=== PATIENT | female | born 1980 | race Caucasian/White ===

== ENCOUNTER → 2016-04-23 | Outpatient (CLI) | payer OTHER ==
[~2016-04-23] MED LIST: /TIZA4TA PO; ALBUTEROL INH; DICLOFENAC POTASSIUM PO; IBUP600T OR; PRENTAB8 PO; ZIPS25CA3 PO; ZONI100C2 PO
--- NOTE | 2016-04-23 15:00 | REP ---
Clinical: Trauma. Injury . Technique: AP, lateral, bilateral oblique views left ankle . Findings: Soft tissue swelling is appreciated. No acute fracture or dislocation. Skeletal structures and joint spaces are intact and normal. Ankle mortise appears stable. No subcutaneous emphysema or radiodense foreign body. Impression: Swelling. No acute fracture dislocation. Signed by Alok Virk MD 04/23/2016 02:52 P
--- NOTE | 2016-04-23 15:02 | REP ---
Clinical: Trauma. Injury. Technique: AP, lateral, bilateral oblique views. Findings: Soft tissue swelling noted. The osseous structures and joint spaces are intact and normal. There is no evidence for acute fracture or dislocation. Small calcaneal heal spur identified. No subcutaneous emphysema or radiodense foreign body. Impression: Soft tissue swelling. No acute fracture dislocation. Signed by Alok Virk MD 04/23/2016 02:54 P
== END ==
LOC: M RAD 14:24
PROVIDERS: ATTEND Physician Assistant Medical
DX: M79.89 Other specified soft tissue disorders (principal)

== ENCOUNTER → 2016-04-25 | Outpatient (CLI) | payer OTHER ==
--- NOTE | 2016-04-30 | ECWPNPC ---
PATIENT NAME: CHEN PETERS : 1980 GENDER: FEMALE VISIT DATE: 04/25/2016 DISCHARGE DATE: 04/25/16 1431 VISIT LOCKED DATE TIME: PHYSICIAN: TERESITA MANCILLA RESOURCE: TERESITA MANCILLA REASON FOR APPOINTMENT 1. NECK HISTORY OF PRESENT ILLNESS NEW PATIENT CONSULT: 35 Y/O FEMALE HERE FOR INITIAL CONSULT PER REFERRAL FROM DR. NAPIER FOR CHRONIC NECK AND LOW BACK PAIN.WORSE AREA OF PAIN IS NECK.STATES THIS BEGAN 2 YEARS AGO AFTER A FALL DOWN STAIRS.STATES NECK PAIN RADIATES UP POSTERIOR ASPECT OF SKULL AND CAUSES HEADACHESPAIN IS AGGREVATED BY LIFTING OR PROLONGED SITTING OR STANDING.RELIEVED SOMEWHAT WITH APPLICATION OF PRESSURE TO BASE OF SKULL.DENIES RECENT FEVER ,ILLNESS OR WEIGHT LOSS.DENIES BOWEL OR BLADDER INCONTINENCE.DOES ADMIT TO ACTIVELY USINGCRACK COCAINE,METHAMPHETAMINES AND MARIJUANA.STATES SHE IS PLANNING ON GOING TO [facility] NEXT WEEK FOR HELP. WHEN DID YOUR PAIN FIRST START? . BRIEFLY DESCRIBE HOW YOUR PAIN STARTED? . HOW DOES YOUR PAIN CHANGE WITH TIME? . DOES YOUR PAIN AWAKEN YOU FROM SLEEP? . HOW MANY HOURS OF SLEEP DO YOU NORMALLY GET? . ANY DIAGNOSTIC TESTING? . FACILITY WHERE TESTS WERE DONE? ____. PAIN TREATMENT TREATMENT YES CANCER HAVE YOU EVER HAD ANY TYPE OF CANCER?NO NO. PAIN SCREENING: PATIENT HAS A COMPLAINT OF ACUTE OR CHRONIC PAIN YES FALL RISK SCREENING: SCREENING :NO FALLS IN THE PAST YEAR FJAARDO INVENTORY: QUESTIONNAIRE ASSESSEDTBD SCORE VALUE CALCULATED TBD CURRENT MEDICATIONS TAKING CPAP MASK CPAP SUPPLIES 0 DIRECTED WITH CPAP CPAP AT BEDTIME TAKING CPAP MACHINE CPAP MACHINE NASAL EVERY NIGHT TAKING VENTOLIN HFA 90 MCG/ACT AEROSOL SOLUTION 2 PUFFS NEEDED INHALATION EVERY 4 HOURS NEEDED TAKING LORATADINE 10 MG TABLET TAKE ONE TABLET BY MOUTH ONCE DAILY TAKING LISINOPRIL 5 MG TABLET ORALLY TAKING PROZAC 20 MG CAPSULE 1 CAPSULE IN THE MORNING ORALLY ONCE A DAY TAKING VERAPAMIL HCL 120 MG TABLET 1 TABLET ORALLY THREE TIMES A DAY TAKING VITAMIN D (ERGOCALCIFEROL) 80152 UNIT CAPSULE 1 CAPSULE ORALLY NOT-TAKING ZONISAMIDE 50 MG CAPSULE 1 CAPSULE ORALLY DAILY (QUYEN) NOT-TAKING NAPROXEN 500 MG TABLET 1 TAB(S) ORALLY EVERY 12 HRS NEEDED (DEX) NOT-TAKING CELEBREX 200 MG CAPSULE TAKE ONE CAPSULE BY MOUTH ONCE DAILY MEDICATION LIST REVIEWED AND RECONCILED WITH THE PATIENT PAST MEDICAL HISTORY SCHIZOAFFECTIVE DISORDER VITAMIN D DEFICIENCY HEARING LOSS UNKNOWN ETIOLOGY EST W/ AUDIOLOGY AND ENT W/ DR. 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 DIFF COLITIS 03/15 FREQ ABSCESS AND H/O MRSA HX OVARIAN CYSTS HX MODERATE CERVICAL DYSPLASIA (LISA I-II) W/LEEP INFERTILITY ISSUES FIBROCYSTIC BREAST DISEASE ALLERGIES RISPERERDOL: DIZZY: SIDE EFFECTS GEODON: PARANOID: SIDE EFFECTS SEAFOOD, FISH: ANGIOEDEMA: ALLERGY FLEXERIL: HIVES: ALLERGY NORTRIPTYLINE HCL: HIVES: ALLERGY ULTRAM: HIVES: ALLERGY ATENOLOL 100: HIVES: ALLERGY SURGICAL HISTORY PLANTAR FACITIS 2014 SHUNT IN THE BRAIN/EAR TUBES 1980 LAPARSCOPIC EXPLORATORY 2013 FAMILY HISTORY FATHER: ALIVE MOTHER: ALIVE SIBLINGS: ALIVE MISCARRIED . SOCIAL HISTORY GENERAL: TOBACCO USE ARE YOU A:NONSMOKER RECREATIONAL DRUG USE DRUG USE?YES PT STATES SHE USES MARYJUANA , METH AND CRACK COCAINE CAFFEINE CAFFEINE USE?NO DIET: REGULAR. EXERCISE: PT STATES SHE HAS AN EATING DISORDER/ MAKES HERSELF THROW UP. MARITAL STATUS: , . PETS: DOG. ZOROASTRIAN: CHURCH. LANGUAGE: ARMENIAN. EDUCATION: 6TH GRADE EDUCATION. LEARNING BARRIERS / SPECIAL NEEDS BARRIERS TO LEARNING?YES PT STATES SHE CAN READ, BUT DOES NOT COMPREHEND COGNITIVELY IMPAIRED?YES READINESS TO LEARN?YES LEARNING PREFERENCES? ONE ON ONE EXPLANATION EMOTIONAL BARRIERS?YES SUICIDE ATTEMPT LNOVE 2015 PSYCHOLOGICAL HX TREATMENTNO PAIN CLINIC PFS, CLERGY, PUBLIC HEALTH REFERRALS CLERGY REFERRAL NEEDED?NO WAS THE PROVIDER NOTIFIED OF ANY PERTINENT INFO?NO PFS REFERRAL NEEDED?NO PUBLIC HEALTH REFERRAL NEEDED?NO PATIENT: ____. ADVANCED DIRECTIVES HEALTH CARE PROXY?NO POWER OF MOLD CAPPER HELPER?NO PT LIVE WITH SAME PARTNER, RECENTLY , SINCE MAY 2010. HOSPITALIZATION/MAJOR DIAGNOSTIC PROCEDURE MENTAL HEALTH ADMISSIONS LAST IN 2014 REVIEW OF SYSTEMS CONSTITUTIONAL: ANY CHANGE IN YOUR MEDICAL CONDITION? NO . RECENT ILLNESS DENIES . CHILLS NO . FEVER NO . WEIGHT LOSS DENIES . INFECTION: DO YOU HAVE NEW INFECTIONS? NO . DO YOU HAVE HISTORY OF MRSA? NO . MUSCULOSKELETAL: ANY NEW PATTERNS OF PAIN OR NUMBNESS? NO . SYTEMIC LUPUS NO . GASTROENTEROLOGY: ANY NEW CHANGE IN BOWEL CONTROL? NO . BARRETTS ESOPHAGUS NO . CIRRHOSIS NO . HEPATITIS NO . LIVER FAILURE NO . ACID REFLUX NO . UNEXPLAINED WEIGHT LOSS NO . GENITOURINARY: ANY NEW CHANGE IN BLADDER CONTROL? NO . IS THERE A CHANCE YOU COULD BE ? NO . HEMATOLOGY/LYMPH: DO YOU TAKE ANY BLOOD THINNERS? (FOR EXAMPLE- COUMADIN, PLAVIX, AGGRENOX, PLATEL, PRADAXA, OR XARELTO) NO . WHEN WAS YOUR LAST DOSE? DATE: TIME: . LOW PLATELET COUNT NO . SICKLE CELL DISEASE NO . VON WILLIEBRANDS NO . FACTOR V LEIDEN NO . THALLASEMIA NO . ANEMIA NO . EASY BRUISING NO . NEUROLOGY: HAVE YOU FALLEN IN THE PAST 6 MONTHS? NO . ANY NEW EXTREMITY NUMBNESS OR WEAKNESS? NO . HEAD INJURY NO . DEMENTIA NO . CEREBRAL PALSY NO . MULTIPLE SCLEROSIS NO . DIZZINESS NO . HEADACHE NO . STROKES NO . VERTIGO NO . CARDIOLOGY: DO YOU HAVE A PACEMAKER OR DEFIBRILLATOR? NO . ANGINA NO . HEART ATTACK NO . HEART SURGERY NO . CONGESTIVE HEART FAILURE/FLUID OVERLOAD NO . CHEST PAIN NO, DENIES . HIGH BLOOD PRESSURE NO . IRREGULAR HEART BEAT NO . SHORTNESS OF BREATH DENIES . RESPIRATORY: HAVE YOU BEEN SICK IN THE PAST WEEK? NO . FEVER NO . FLU LIKE SYMPTOMS? NO . CPAP NO . BYPAP NO . ASTHMA NO . EMPHYSEMA NO . CHRONIC LUNG DISEASES NO . SHORTNESS OF BREATH ON EXERTION NO . DO YOU USE ANY TYPE OF TOBACCO (SMOKE, SMOKELESS, CHEW)? NO . COUGH NO, DENIES . SHORTNESS OF BREATH DENIES . SNORING NO . INTEGUMENTARY: DO YOU HAVE ANY RASHES OR OPEN SORES? NO . ALLERGIC/IMMUNO: ARE YOU ALLERGIC TO SHELLFISH OR IV DYE? YES . ANY NEW ALLERGIES? NO . PSYCHIATRIC: DO YOU HAVE THOUGHTS OF HURTING YOURSELF OR SOMEONE ELSE? NO . ARE YOU ABUSED, NEGLECTED, OR IN AN UNSAFE ENVIRONMENT? NO . ENDOCRINOLOGY: ARE YOU DIABETIC? NO . THYROID DISORDER NO . OTHER: DO YOU NEED ANY PRESCRIPTIONS? NO . IF YES, PLEASE LIST: ____ . ANY NEW PROBLEMS WITH YOUR MEDICATIONS? NO . WHEN DID YOU LAST EAT? ____ . WHEN DID YOU LAST DRINK? ____ . WHAT DID YOU LAST DRINK? ____ . NAME OF PERSON DRIVING YOU HOME? ____ . DO YOU HAVE ANY OTHER QUESTIONS OR CONCERNS NO . REVIEWED BY: PROVIDER: TERESITA ARMSTRONG . VITAL SIGNS WT 254.0 LBS, HT 66 IN, BMI 40.99 INDEX, BP 122/79 MM HG, HR 81 /MIN, RR 16 /MIN, TEMP 99.0 F, OXYGEN SAT % 100, NA INITIALS SC 13:14, REVIEWED BY: KG. EXAMINATION GENERAL EXAMINATION: LUNGS:LUNG SOUNDS ARE CLEAR. HEART:HEART RATE REGULAR. MUSCULOSKELETAL:*, MUSCLE STRENGTH TESTING 5/5 BILATERAL UPPER EXTREMITIES. PALPATION: POSITIVE FOR PAIN OVER C SPINE. POSITIVE FOR PAIN OVER CERVICAL PARASPINALS. TRIGGER POINTS:, ELICITED WITH PALPATION OVER CERVICAL SPINOUS PROCESSES AND ACROSS THE TRAPEZIUS MUSCLES BILATERALLY. RESTRICTION OF ROM IS NOTED. NORMAL RANGE OF MOTION ALL JOINTS UPPE AND LOWER EXTREMITIES.. DIAGNOSTIC:MRI L/S [id number]. NCS LOWER [id number]. ASSESSMENTS CERVICALGIA - M54.2 (PRIMARY) MYOFASCIAL MUSCLE PAIN - M79.1 TREATMENT CERVICALGIA START MELOXICAM TABLET, 15 MG, 1 TABLET, ORALLY, ONCE A DAY, 30 DAY(S), 30, REFILLS 2 TRIGGER POINT 1-2 TERESITA RIOS 04/25/2016 2:33:45 PM > LEFT UPPER BACK REFERRAL TO:PHYSICAL THERAPIST REASON:CERVICALGIA,MYOFASCIAL PAIN,2XWK X8WK MYOFASCIAL MUSCLE PAIN TRIGGER POINT 1-2 TERESITA RIOS 04/25/2016 2:33:45 PM > LEFT UPPER BACK PROCEDURE CODES FA211 ESTABILISHED PATIENT [facility] CHARGE DISPOSITION & COMMUNICATION FOLLOW UP 6 WEEKS (REASON: TRIGGER POINT INJ LEFT UPPER BACK) ELECTRONICALLY SIGNED BY PATTI SARAH ON 04/29/2016 AT 04:52 PM EST DISCLAIMER : THIS IS A VISIT SUMMARY EXTRACTED FROM THE [employer] CHART. IT IS NOT A COPY OF THE [employer] PROGRESS NOTE. MTDD
== END ==
LOC: M PAIN 13:20
PROVIDERS: ATTEND Nurse Practitioner Family
DX: Z09 Encounter for follow-up examination after completed treatment for conditions other than malignant neoplasm (principal); G89.29 Other chronic pain; M54.2 Cervicalgia; M79.1 Myalgia; M54.5 Low back pain; G43.909 Migraine, unspecified, not intractable, without status migrainosus; J45.909 Unspecified asthma, uncomplicated; E55.9 Vitamin D deficiency, unspecified; F25.9 Schizoaffective disorder, unspecified; G47.33 Obstructive sleep apnea (adult) (pediatric); H91.90 Unspecified hearing loss, unspecified ear; Z91.013 Allergy to seafood; Z88.8 Allergy status to other drugs, medicaments and biological substances; Z79.899 Other long term (current) drug therapy; Z86.14 Personal history of Methicillin resistant Staphylococcus aureus infection

== ENCOUNTER 2016-05-06 14:20 | Emergency (ER) | payer OTHER ==
[~2016-05-06] VITALS: Ht 167.6 cm; Wt 68.0 kg
[2016-05-06 20:03] VITALS: BP 130/82
== END 2016-05-06 20:10 | disposition home or self-care (01) ==
LOC: M ED 18:46
DX: Z60.9 Problem related to social environment, unspecified (principal); F41.9 Anxiety disorder, unspecified; J45.909 Unspecified asthma, uncomplicated; Z79.899 Other long term (current) drug therapy; Z88.1 Allergy status to other antibiotic agents; Z88.8 Allergy status to other drugs, medicaments and biological substances; Z91.041 Radiographic dye allergy status; Z91.02 Food additives allergy status; Z91.013 Allergy to seafood; Z88.5 Allergy status to narcotic agent

== ENCOUNTER → 2016-05-10 | Outpatient (REF) | payer OTHER | LOC: M LAB REF 16:13 | PROVIDERS: ATTEND Physician Assistant Medical | DX: J11.1 Influenza due to unidentified influenza virus with other respiratory manifestations (principal) ==

== ENCOUNTER → 2016-05-23 | Outpatient (CLI) | payer OTHER ==
[~2016-05-23] MED LIST changes: +BUPIVACAINE HCL 0.25% 10 ML VIAL As Ordered ONE; +BUPIVACAINE HCL 0.25% 30 ML VIAL As Ordered ONE; +TRIAMCINOLONE ACETONIDE SUSP 40 MG/ML VIAL (J3301) As Ordered ONE; +diazePAM 5 MG TAB As Ordered ONE; +oxyCODONE 5MG TAB As Ordered ONE
--- NOTE | 2016-05-28 02:25 | ECWPNPC ---
PATIENT NAME: CHEN PETERS : 1980 GENDER: FEMALE VISIT DATE: 05/23/2016 DISCHARGE DATE: 05/23/16 1614 VISIT LOCKED DATE TIME: PHYSICIAN: RIGOBERTO BENDER RESOURCE: RIGOBERTO BENDER REASON FOR APPOINTMENT 1. TPI- MYOFASCIAL MUSCLE PAIN HISTORY OF PRESENT ILLNESS HISTORY OF PRESENT ILLNESS: PAIN THE PATIENT DESCRIBES THE PAIN... FALL RISK SCREENING: SCREENING :NO FALLS IN THE PAST YEAR CURRENT MEDICATIONS TAKING CPAP MASK CPAP SUPPLIES 0 DIRECTED WITH CPAP CPAP AT BEDTIME TAKING CPAP MACHINE CPAP MACHINE NASAL EVERY NIGHT TAKING VENTOLIN HFA 90 MCG/ACT AEROSOL SOLUTION 2 PUFFS NEEDED INHALATION EVERY 4 HOURS NEEDED, NOTES: 05-22-16 TAKING LISINOPRIL 5 MG TABLET ORALLY , NOTES: 05-22-162299 TAKING PROZAC 20 MG CAPSULE 1 CAPSULE IN THE MORNING ORALLY ONCE A DAY, NOTES: 05-22-162299 TAKING VERAPAMIL HCL 240 MG (CO) TABLET EXTENDED RELEASE 1 TABLET ORALLY ONCE A DAY, NOTES: 05-22-162199 TAKING VITAMIN D (ERGOCALCIFEROL) 95833 UNIT CAPSULE 1 CAPSULE ORALLY ONCE WEEKLY, NOTES: 05-22-162299 TAKING MELOXICAM 15 MG TABLET 1 TABLET ORALLY ONCE A DAY, NOTES: 05-22-16 1100 TAKING LORATADINE 10 MG TABLET TAKE ONE TABLET BY MOUTH ONCE DAILY , NOTES: 05-22-162299 TAKING EPIPEN 0.3 MG/0.3ML DEVICE INJECTION TAKING ABILIFY MAINTENA 400 MG SUSPENSION RECONSTITUTED 2 ML INTRAMUSCULAR MONTHLY, NOTES: 05-17-16 NOT-TAKING ZONISAMIDE 50 MG CAPSULE 1 CAPSULE ORALLY DAILY (QUYEN) NOT-TAKING NAPROXEN 500 MG TABLET 1 TAB(S) ORALLY EVERY 12 HRS NEEDED (MAJAK) NOT-TAKING CELEBREX 200 MG CAPSULE TAKE ONE CAPSULE BY MOUTH ONCE DAILY MEDICATION LIST REVIEWED AND RECONCILED WITH THE PATIENT PAST MEDICAL HISTORY SCHIZOAFFECTIVE DISORDER VITAMIN D DEFICIENCY HEARING LOSS UNKNOWN ETIOLOGY EST W/ AUDIOLOGY AND ENT W/ DR. 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 DIFF COLITIS 03/15 FREQ ABSCESS AND H/O MRSA HX OVARIAN CYSTS HX MODERATE CERVICAL DYSPLASIA (LISA I-II) W/LEEP INFERTILITY ISSUES FIBROCYSTIC BREAST DISEASE ALLERGIES RISPERERDOL: DIZZY: SIDE EFFECTS GEODON: PARANOID: SIDE EFFECTS SEAFOOD, FISH: ANGIOEDEMA: ALLERGY FLEXERIL: HIVES: ALLERGY NORTRIPTYLINE HCL: HIVES: ALLERGY ULTRAM: HIVES: ALLERGY ATENOLOL 100: HIVES: ALLERGY REVIEW OF SYSTEMS CONSTITUTIONAL: ANY CHANGE IN YOUR MEDICAL CONDITION? NO . CHILLS NO . FEVER NO . INFECTION: DO YOU HAVE NEW INFECTIONS? NO . DO YOU HAVE HISTORY OF MRSA? NO . MUSCULOSKELETAL: ANY NEW PATTERNS OF PAIN OR NUMBNESS? NO . GASTROENTEROLOGY: ANY NEW CHANGE IN BOWEL CONTROL? NO . GENITOURINARY: ANY NEW CHANGE IN BLADDER CONTROL? NO . IS THERE A CHANCE YOU COULD BE ? NO . HEMATOLOGY/LYMPH: DO YOU TAKE ANY BLOOD THINNERS? (FOR EXAMPLE- COUMADIN, PLAVIX, AGGRENOX, PLATEL, PRADAXA, OR XARELTO) NO . WHEN WAS YOUR LAST DOSE? DATE: TIME: . NEUROLOGY: HAVE YOU FALLEN IN THE PAST 6 MONTHS? NO . ANY NEW EXTREMITY NUMBNESS OR WEAKNESS? NO . CARDIOLOGY: DO YOU HAVE A PACEMAKER OR DEFIBRILLATOR? NO . RESPIRATORY: HAVE YOU BEEN SICK IN THE PAST WEEK? NO . FEVER NO . FLU LIKE SYMPTOMS? NO . COUGH NO . INTEGUMENTARY: DO YOU HAVE ANY RASHES OR OPEN SORES? NO . ALLERGIC/IMMUNO: ARE YOU ALLERGIC TO SHELLFISH OR IV DYE? YES, SHELLFISH . ANY NEW ALLERGIES? NO . PSYCHIATRIC: DO YOU HAVE THOUGHTS OF HURTING YOURSELF OR SOMEONE ELSE? NO . ARE YOU ABUSED, NEGLECTED, OR IN AN UNSAFE ENVIRONMENT? NO . ENDOCRINOLOGY: ARE YOU DIABETIC? NO . OTHER: DO YOU NEED ANY PRESCRIPTIONS? NO . IF YES, PLEASE LIST: ____ . ANY NEW PROBLEMS WITH YOUR MEDICATIONS? NO . WHEN DID YOU LAST EAT? 05-23-16 1100 SOUP . WHEN DID YOU LAST DRINK? 05-23-16 1100 EUGENIO MIST . WHAT DID YOU LAST DRINK? EUGENIO MIST . NAME OF PERSON DRIVING YOU HOME? SHEILA VAUGHAN . DO YOU HAVE ANY OTHER QUESTIONS OR CONCERNS NO . REVIEWED BY: PROVIDER: . VITAL SIGNS WT 254.4 LBS, HT 66 IN, BMI 41.06 INDEX, BP 122/67 MM HG, HR 63 /MIN, RR 16 /MIN, TEMP 96.6 F, OXYGEN SAT % 100%, NA INITIALS SC 14:35, REVIEWED BY: CM. ASSESSMENTS MYALGIA - M79.1 (PRIMARY) PROCEDURES PN TRIGGER POINT INJECTION WITH STEROIDS PRE PROCEDURE DIAGNOSIS 1. MYALGIA 2. PAIN AT BILATERAL NECK AREA POST PROCEDURE DIAGNOSIS 1. MYALGIA 2. PAIN AT BILATERAL NECK AREA PROCEDURE TRIGGER POINT INJECTION AT BILATERAL NECK AREA SURGEON DR. RIGOBERTO BENDER HYDRAULIC MINER NONE ANESTHESIA LOCAL PRE PROCEDURE NOTE THE PATIENT HAS A HISTORY OF CHRONIC PAIN AT THE RIGHT AND LEFT NECK AREA. I EVALUATE THE PATIENT AND REVIEWED THE CHART. THERE IS EVIDENCE OF BANDS OF TISSUE WITH RESTRICTION OF MOVEMENT AND PRESENCE OF TRIGGER POINT AT THE AFFECTED AREA. I WENT OVER THE RISKS, ALTERNATIVES, AND BENEFITS ASSOCIATED WITH THIS PROCEDURE. THE PATIENT WOULD LIKE TO PROCEED AND GIVE CONSENT TO PERFORMED THE PROCEDURE. THE PATIENT DENIES UNEXPLAINABLE WEIGHT LOSS, FEVER, CHILLS, OR NEW CHANGES IN URINARY OR BOWEL CONTROL DESCRIPTION OF PROCEDURE THE PATIENT WAS BROUGHT TO THE PROCEDURE ROOM AND PLACED IN THE SITTING POSITION. THE AREA WAS CLEANED WITH ALCOHOL. THE PROCEDURE WAS DONE USING ASEPTIC STERILE TECHNIQUE. I CHECKED LATERALITY AND THE LEVEL WHERE THE PROCEDURE WAS GOING TO BE PERFORMED WITH THE PATIENT AND THE SUPPORTING STAFF AT THE MOMENT OF THE TIME OUT IN THE PROCEDURE ROOM. USING A 25-GAUGE NEEDLE, TRIGGER POINTS WERE INJECTED AT THE RIGHT AND LEFT NECK AREA WITH A TOTAL OF 40 ML OF BUPIVACAINE 0.25% AND KENALOG 40 MG. THERE WAS NO EVIDENCE OF BLOOD, PARESTHESIA OR CEREBROSPINAL FLUID DURING THE PROCEDURE. THE PATIENT WAS SENT TO THE RECOVERY ROOM. THE PATIENT WAS MOVING THE EXTREMITIES AND DOING WELL. THERE WAS NO COMPLICATION DURING THE PROCEDURE POST PROCEDURE NOTE THE PATIENT WILL BE SEEN IN A FOLLOW UP IN THE NEXT FEW WEEKS. INSTRUCTIONS WERE GIVEN, QUESTIONS WERE ANSWERED, AND THE PATIENT EXPRESSED UNDERSTANDING AND AGREES WITH THE PLAN. I, BE SUMMERS, DOCUMENTED THE ABOVE INFORMATION ACTING A SCRIBE FOR DR. BENDER. I HAVE REVIEWED THE ABOVE DOCUMENT, WRITTEN BY BE SHULTZ AND I VERIFY THAT IT IS ACCURATE PROCEDURE CODES 93077 INJ TRIGGER POINT 03/04 [facility] DISPOSITION & COMMUNICATION FOLLOW UP 3 WEEKS ELECTRONICALLY SIGNED BY RIGOBERTO BENDER MD ON 05/27/2016 AT 06:00 PM EDT DISCLAIMER : THIS IS A VISIT SUMMARY EXTRACTED FROM THE [employer] CHART. IT IS NOT A COPY OF THE [employer] PROGRESS NOTE. EDITH
== END | disposition home or self-care (01) ==
LOC: M PAIN 14:20
PROVIDERS: ATTEND Anesthesiology
DX: G89.29 Other chronic pain (principal); M79.1 Myalgia; J45.909 Unspecified asthma, uncomplicated; G47.33 Obstructive sleep apnea (adult) (pediatric); F25.9 Schizoaffective disorder, unspecified; E55.9 Vitamin D deficiency, unspecified; H91.90 Unspecified hearing loss, unspecified ear; G43.909 Migraine, unspecified, not intractable, without status migrainosus; Z79.899 Other long term (current) drug therapy; Z88.5 Allergy status to narcotic agent; Z88.8 Allergy status to other drugs, medicaments and biological substances; Z91.013 Allergy to seafood
CPT/HCPCS: 20552; J3301

== ENCOUNTER 2016-06-16 17:58 | Emergency (ER) | payer OTHER ==
[~2016-06-16] VITALS: Ht 167.6 cm; Wt 111.1 kg
[~2016-06-16 17:58] MED LIST changes: -BUPIVACAINE HCL 0.25% 10 ML VIAL As Ordered ONE; -BUPIVACAINE HCL 0.25% 30 ML VIAL As Ordered ONE; -TRIAMCINOLONE ACETONIDE SUSP 40 MG/ML VIAL (J3301) As Ordered ONE; -diazePAM 5 MG TAB As Ordered ONE; -oxyCODONE 5MG TAB As Ordered ONE
[2016-06-16 17:59] VITALS: BP 112/73
[2016-06-16] MEDS ORDERED: PROZ40CA PO (18:06)
[2016-06-16] MEDS ORDERED: ABIL300I IM (18:06)
[2016-06-16] MEDS ORDERED: VERA240T14 PO (18:06)
[2016-06-16] MEDS ORDERED: TRAZ150T14 PO (18:06)
[2016-06-16] MEDS ORDERED: KETOROLAC 30 MG/ML VIAL (J1885) IV ONE (19:00)
[2016-06-16] MEDS ORDERED: CLINDAMYCIN 150 MG CAP PO ONE (19:00)
[2016-06-16] MEDS ORDERED: CLEO300C2 PO (19:08)
[2016-06-16] MEDS ORDERED: NAPR500T PO (19:08)
[2016-06-16] MEDS ORDERED: KETOROLAC 30 MG/ML VIAL (J1885) IM ONE (19:30)
== END 2016-06-16 19:52 | disposition home or self-care (01) ==
LOC: M ED 18:57
DX: K02.9 Dental caries, unspecified (principal); M54.2 Cervicalgia; F17.200 Nicotine dependence, unspecified, uncomplicated; Z88.5 Allergy status to narcotic agent; Z88.8 Allergy status to other drugs, medicaments and biological substances; Z91.02 Food additives allergy status; Z91.013 Allergy to seafood

== ENCOUNTER 2016-07-21 16:51 | Emergency (ER) | payer OTHER ==
[~2016-07-21] VITALS: Ht 167.6 cm; Wt 113.4 kg
[~2016-07-21 16:51] MED LIST changes: +ABIL300I IM; +CLEO300C2 PO; +NAPR500T PO; +PROZ40CA PO; +TRAZ150T14 PO; +VERA240T14 PO
[2016-07-21 16:52] VITALS: BP 138/65
[2016-07-21] MEDS ORDERED: MEDR1VL IM (16:59)
[2016-07-21] MEDS ORDERED: NAPR500T PO (17:44)
[2016-07-21] MEDS ORDERED: AMOX500C PO (17:44)
[2016-07-21] MEDS ORDERED: AMOXICILLIN 500 MG CAP PO ONE (17:45)
[2016-07-21] MEDS ORDERED: ACETAMINOPH W/CODEINE #3 TAB UD PO ONE (17:45)
== END 2016-07-21 18:47 | disposition home or self-care (01) ==
LOC: M ED 17:49
DX: G50.1 Atypical facial pain (principal); K08.9 Disorder of teeth and supporting structures, unspecified; I10 Essential (primary) hypertension; Z79.899 Other long term (current) drug therapy; Z88.5 Allergy status to narcotic agent; Z88.8 Allergy status to other drugs, medicaments and biological substances; Z91.013 Allergy to seafood; Z91.09 Other allergy status, other than to drugs and biological substances

== ENCOUNTER 2016-08-13 15:48 | Emergency (ER) | payer OTHER ==
[~2016-08-13] VITALS: Ht 167.6 cm; Wt 117.8 kg
[2016-08-13 15:48] VITALS: BP 151/74
[~2016-08-13 15:48] MED LIST changes: +AMOX500C PO; +MEDR1VL IM
[2016-08-13] MEDS ORDERED: NORCOTAB PO (16:11)
[2016-08-13] MEDS ORDERED: CLEO300C2 PO (16:11)
== END 2016-08-13 16:27 | disposition home or self-care (01) ==
LOC: M ED 16:20
DX: K02.9 Dental caries, unspecified (principal); R22.0 Localized swelling, mass and lump, head; Z79.899 Other long term (current) drug therapy; Z91.02 Food additives allergy status; Z88.8 Allergy status to other drugs, medicaments and biological substances; Z88.5 Allergy status to narcotic agent; Z91.013 Allergy to seafood

== ENCOUNTER 2016-10-21 19:30 | Emergency (ER) | payer OTHER ==
[~2016-10-21] VITALS: Ht 167.6 cm; Wt 118.1 kg
[~2016-10-21 19:30] MED LIST changes: +NORCOTAB PO; -TRAZ150T14 PO; +TRAZ1TAB14 PO
[2016-10-21] MEDS ORDERED: REXU1TAB PO (19:54)
[2016-10-21] MEDS ORDERED: AMOX500C PO (19:54)
[2016-10-21] MEDS ORDERED: IPRATROPIUM 0.5MG/ALBUTEROL 2.5MG INH SOL UD 3ML (DUONEB)(J7620) NEB ONE (21:00)
[2016-10-21 22:06] LABS: BASO % 0.6 % (0.0-1.0); EOS # 0.3 K/mm3 (0.0-0.50); EOS % 3.5 % (0.0-3.0); LARGE UNSTAINED CELL # 0.1 K/mm3 (0.0-0.4); LYMPH # 2.4 K/mm3 (1.5-4.5); LYMPH % 27.2 % (24.0-44.0); MEAN CORPUSCULAR HEMOGLOBIN 31.2 pg (27.0-33.0); MEAN CORPUSCULAR HGB CONC 33.4 g/dl (32.0-36.5); MEAN CORPUSCULAR VOLUME 93.4 fl (80.0-96.0); MONO # 0.4 K/mm3 (0.0-0.8); MONO % 4.2 % (0.0-5.0); NEUTROPHILS # 5.4 K/mm3 (1.8-7.7); NEUTROPHILS % 63.4 % (36.0-66.0); PLATELET COUNT, AUTOMATED 191 k/mm3 (150-450); RED CELL DISTRIBUTION WIDTH 13.4 % (11.5-14.5); WHITE BLOOD COUNT 8.5 K/mm3 (4.0-10.0)
[2016-10-21 22:36] LABS: ANION GAP 7 MEQ/L (8-16); BLOOD UREA NITROGEN 13 MG/DL (7-18); CALCIUM LEVEL 9.1 MG/DL (8.5-10.1); CARBON DIOXIDE LEVEL 28 MEQ/L (21-32); CHLORIDE LEVEL 108 MEQ/L (98-107); CREATININE FOR GFR 1.23 MG/DL (0.55-1.02); GLOMERULAR FILTRATION RATE 52.6 (>60); GLUCOSE, FASTING 84 MG/DL (70-105); POTASSIUM SERUM 3.8 MEQ/L (3.5-5.1); SODIUM LEVEL 143 MEQ/L (136-145)
[2016-10-22] MEDS ORDERED: NS 1,000 ML IV ONE (01:30)
[2016-10-22] MEDS ORDERED: ISOVUE-370 76% 100ML VIAL (Q9967) As Ordered ONE (01:33)
--- NOTE | 2016-10-22 02:50 | REPUSA ---
CLINICAL HISTORY: Edema. COMMENTS: Real time sonography with duplex doppler of the extremities bilaterally was performed with attention to the major deep venous structures. Evaluation reveals the common femoral, superficial femoral and popliteal veins bilaterally to be comp letely compressible without intraluminal thrombus. There is normal spontaneous phasic flow and augmen tation in all deep veins. The greater saphenous/common femoral vein junctions are patent bilaterally. IMPRESSION: No evidence of DVT in the lower extremities bilaterally. Thank you for your kind referral of this patient.
--- NOTE | 2016-10-22 02:50 | REPUSA ---
CLINICAL HISTORY: Pain, exclude PE. TECHNIQUE: Multiple incremental axial, coronal and oblique images are obtained from the thoracic inle t to the upper abdomen. Intravenous contrast material was administered as per pulmonary embolism prot ocol. COMMENTS: There is excellent opacification of pulmonary arterial system without evidence for pulmonary embolism . Aorta is of normal caliber without evidence for dissection or aneurysm. There is no evidence of pleural or parenchymal mass. There are no pleural effusions. There is no evid ence of hilar or mediastinal lymphadenopathy. The heart and great vessels are within normal limits. Images of the upper abdomen demonstrate no evidence of adrenal mass. The bony structures are free of lytic or blastic lesions. IMPRESSION: No evidence for pulmonary embolism. Thank you for your kind referral of this patient.
[2016-10-22] MEDS ORDERED: PRED20TA PO (03:07)
[2016-10-22] MEDS ORDERED: IPRATROPIUM 0.5MG/ALBUTEROL 2.5MG INH SOL UD 3ML (DUONEB)(J7620) NEB ONE (03:15)
[2016-10-22] MEDS ORDERED: dexameTHASONE 20 MG/5 ML VIAL (J1100) IV ONE (03:15)
[2016-10-22 03:45] VITALS: BP 131/90
--- NOTE | 2016-10-22 07:33 | ECGEPIP ---
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 Order Number: [id number] Reading MD: Phil Munoz Measurements Intervals [place] Rate: 56 P: 58 GA: 154 QRS: 34 QRSD: 89 T: 31 QT: 446 QTc: 434 Interpretive Statements SINUS BRADYCARDIA Electronically Signed On 10-22-2016 7:32:56 EDT by Phil Munoz
--- NOTE | 2016-10-22 08:19 | REP ---
Chest x-ray: Two views. History: Shortness of breath. . Comparison study: November 25, 2015 . Findings: The lungs are well inflated and free of infiltrate. The pleural angles are sharp. The heart size is normal. Pulmonary vasculature is not increased. No significant bony abnormality is seen. Impression: Negative chest x-ray. Signed by Abdirahman Ortiz MD 10/22/2016 08:10 A
== END 2016-10-22 03:50 | disposition home or self-care (01) ==
LOC: M ED 19:30
DX: J40 Bronchitis, not specified as acute or chronic (principal); Z79.2 Long term (current) use of antibiotics; Z79.899 Other long term (current) drug therapy; Z91.02 Food additives allergy status; Z88.8 Allergy status to other drugs, medicaments and biological substances; Z91.013 Allergy to seafood
CPT/HCPCS: 71020; 71275; 80048; 81025; 82550; 82553; 85025; 85379; 93000; 93970; 94640; 96361; 96374; 99284; J1100; Q9967

== ENCOUNTER 2016-10-29 09:36 | Emergency (ER) | payer OTHER ==
[~2016-10-29] VITALS: Ht 167.6 cm; Wt 113.6 kg
[~2016-10-29 09:36] MED LIST changes: +PRED20TA PO; +REXU1TAB PO
[2016-10-29] MEDS ORDERED: VITA1TAB27 PO (09:48)
[2016-10-29] MEDS ORDERED: ALBU17IN2 INH (09:49)
--- NOTE | 2016-10-29 10:34 | REP ---
RIGHT ANKLE SERIES: Four views. HISTORY: Trauma. FINDINGS: Four views of the right ankle show mild medial swelling. Ankle mortise is intact. No fracture is seen. There is early Achilles calcaneal spurring. IMPRESSION: No fracture noted. Signed by Abdirahman Ortiz MD 10/29/2016 12:14 P
[2016-10-29 11:54] LABS: METHADONE URINE NEGATIVE (NEGATIVE)
[2016-10-29] MEDS ORDERED: NAPR500T PO (12:08)
[2016-10-29] MEDS ORDERED: ACETAMINOPHEN TAB 650MG DOSE (2X325MG) PO ONE (12:15)
[2016-10-29 12:57] VITALS: BP 130/60
--- NOTE | 2016-10-31 08:55 | ECGEPIP ---
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
== END 2016-10-29 13:00 | disposition home or self-care (01) ==
LOC: M ED 09:36 → EDBD 09:36 → M ED 13:00
DX: F41.9 Anxiety disorder, unspecified (principal); R00.2 Palpitations; S93.401A Sprain of unspecified ligament of right ankle, initial encounter; W19.XXXA Unspecified fall, initial encounter; X50.1XXA Overexertion from prolonged static or awkward postures, initial encounter; Y92.89 Other specified places as the place of occurrence of the external cause; Y93.89 Activity, other specified; Y99.8 Other external cause status; F25.9 Schizoaffective disorder, unspecified; R07.9 Chest pain, unspecified; G47.33 Obstructive sleep apnea (adult) (pediatric); F17.200 Nicotine dependence, unspecified, uncomplicated; F14.90 Cocaine use, unspecified, uncomplicated; F12.90 Cannabis use, unspecified, uncomplicated; Z91.02 Food additives allergy status; Z88.8 Allergy status to other drugs, medicaments and biological substances; Z88.5 Allergy status to narcotic agent; Z91.013 Allergy to seafood

== ENCOUNTER → 2016-11-13 | Outpatient (CLI) | payer OTHER ==
[~2016-11-13] MED LIST changes: +ALBU17IN2 INH; +VITA1TAB27 PO
--- NOTE | 2016-11-13 11:49 | REP ---
Clinical: Pain. Technique: AP, lateral views of the right ankle. Comparison: 10/29/2016. Findings: Moderate soft tissue swelling is appreciated. No acute fracture dislocation. Joint spaces and ankle mortise are intact. Impression: Moderate swelling increased from prior examination. No fracture or dislocation. Signed by Alok Virk MD 11/13/2016 11:41 A
== END ==
LOC: M RAD 11:17
PROVIDERS: ATTEND Family Medicine
DX: S93.401A Sprain of unspecified ligament of right ankle, initial encounter (principal); X58.XXXA Exposure to other specified factors, initial encounter; Y93.9 Activity, unspecified; Y92.9 Unspecified place or not applicable; Y99.8 Other external cause status

== ENCOUNTER 2016-11-29 15:36 | Emergency (ER) | payer OTHER ==
[~2016-11-29] VITALS: Ht 167.6 cm; Wt 54.4 kg
[2016-11-29 15:36] VITALS: BP 132/66
== END 2016-11-29 16:38 | disposition home or self-care (01) ==
LOC: M ED 15:36
DX: S82.51XA Displaced fracture of medial malleolus of right tibia, initial encounter for closed fracture (principal); X50.9XXA Other and unspecified overexertion or strenuous movements or postures, initial encounter; Y92.89 Other specified places as the place of occurrence of the external cause; Y93.89 Activity, other specified; Y99.8 Other external cause status; I10 Essential (primary) hypertension; J45.909 Unspecified asthma, uncomplicated; F43.10 Post-traumatic stress disorder, unspecified; F25.9 Schizoaffective disorder, unspecified; F60.3 Borderline personality disorder; F41.0 Panic disorder [episodic paroxysmal anxiety]; Z79.899 Other long term (current) drug therapy; Z91.02 Food additives allergy status; Z88.8 Allergy status to other drugs, medicaments and biological substances; Z88.5 Allergy status to narcotic agent; Z91.013 Allergy to seafood

== ENCOUNTER → 2016-11-29 | Outpatient (CLI) | payer OTHER ==
--- NOTE | 2016-11-29 11:15 | REP ---
MRI OF THE RIGHT ANKLE: TECHNIQUE: Sagittal proton density, STIR, axial proton density fat sat, T1, coronal proton density, STIR. The Achilles, anterior tibial, posterior tibial, flexor hallucis longus, flexor digitorum longus and peroneal tendons are intact without evidence of significant tenosynovitis. Anterior and posterior talofibular, calcaneofibular and deltoid ligaments are intact. Plantar tendon is intact. There is no plantar fascitis. No ganglion cyst is seen. There is diffuse superficial soft tissue edema. There is a mild to moderate joint effusion at the tibiotalar joint. There is an occult fracture of the posterior malleolus of the distal tibia with a vertical linear fracture line associated with bone marrow edema in this region. The fracture extends into the tibiotalar joint. IMPRESSION: Occult fracture nondisplaced of the posterior malleolus of the distal tibia. Associated joint effusion. No tendon or ligament tear. Signed by Maikel Gomez MD 11/29/2016 05:17 P
== END ==
LOC: M RAD 09:15
PROVIDERS: ATTEND Family Medicine
DX: M25.471 Effusion, right ankle (principal)

== ENCOUNTER → 2017-02-11 | Outpatient (CLI) | payer OTHER ==
--- NOTE | 2017-02-11 10:54 | REP ---
Chest x-ray: Two views. History: Acute bronchitis . Comparison study: November 25, 2015 and October 21, 2016 . Findings: The lungs are well inflated and free of infiltrate. The pleural angles are sharp. The heart size is normal. Pulmonary vasculature is not increased. No significant bony abnormality is seen. Impression: Negative chest x-ray. Signed by Abdirahman Ortiz MD 02/11/2017 10:46 A
== END ==
LOC: M RAD 09:33
PROVIDERS: ATTEND Family Medicine
DX: J20.9 Acute bronchitis, unspecified (principal)

== ENCOUNTER 2017-02-18 13:47 | Outpatient (RCR) | payer OTHER | END 2017-03-02 | LOC: M PT 02-27 07:39 | DX: Z51.89 Encounter for other specified aftercare (principal); S82.91XB Unspecified fracture of right lower leg, initial encounter for open fracture type I or II | CPT/HCPCS: 97110 ==

== ENCOUNTER 2017-02-26 18:05 | Emergency (ER) | payer OTHER ==
[2017-02-26] MEDS: NS 1,000 ML IV (19:15)
[2017-02-26 19:43] LABS: BASO # 0.1 10^3/uL (0.0-0.2); BASO % 0.8 % (0.0-1.0); EOS # 0.4 10^3/uL (0.0-0.50); EOS % 3.6 % (0.0-3.0); IMMATURE GRANULOCYTE % 0.3 % (0-0); LYMPH # 2.8 10^3/uL (1.5-4.5); LYMPH % 28.5 % (24.0-44.0); MEAN CORPUSCULAR HEMOGLOBIN 29.6 pg (27.0-33.0); MEAN CORPUSCULAR HGB CONC 34.2 g/dl (32.0-36.5); MEAN CORPUSCULAR VOLUME 86.5 fl (80.0-96.0); MONO # 0.6 10^3/uL (0.0-0.8); MONO % 6.4 % (0.0-5.0); NEUTROPHILS % 60.4 % (36.0-66.0); PLATELET COUNT, AUTOMATED 246 10^3/uL (150-450); RED CELL DISTRIBUTION WIDTH 12.9 % (11.5-14.5); WHITE BLOOD COUNT 9.9 10^3/uL (4.0-10.0)
[2017-02-26] MEDS: ONDANSETRON 4MG/2ML VIAL (J2405) IV (19:45)
[2017-02-26] MEDS: KETOROLAC 30 MG/ML VIAL (J1885) IV (19:45)
[2017-02-26 19:57] LABS: CONTROL LINE HCG INT CTR LINE PRESENT
[2017-02-26 20:12] LABS: ALBUMIN 3.1 GM/DL (3.2-5.2); ALBUMIN/GLOBULIN RATIO 0.79 (1.00-1.93); ALKALINE PHOSPHATASE 84 U/L (45-117); ALT/SGPT 19 U/L (12-78); ANION GAP 4 MEQ/L (8-16); AST/SGOT 27 U/L (7-37); BILIRUBIN,DIRECT < 0.1 MG/DL (0.0-0.2); BILIRUBIN,TOTAL 0.3 MG/DL (0.2-1.0); BLOOD UREA NITROGEN 15 MG/DL (7-18); CALCIUM LEVEL 8.7 MG/DL (8.5-10.1); CARBON DIOXIDE LEVEL 29 MEQ/L (21-32); CHLORIDE LEVEL 107 MEQ/L (98-107); CREATININE FOR GFR 1.01 MG/DL (0.55-1.02); GLOMERULAR FILTRATION RATE > 60.0 (>60); GLUCOSE, FASTING 88 MG/DL (70-105); POTASSIUM SERUM 4.8 MEQ/L (3.5-5.1); SODIUM LEVEL 140 MEQ/L (136-145)
[2017-02-26 20:22] LABS: KETONE, URINE AUTO RFX NEGATIVE (NEGATIVE); LEUKOCYTE ESTERASE UR AUTO RFX NEGATIVE (NEGATIVE); NITRITE, URINE AUTO RFX NEGATIVE (NEGATIVE); RBC, URINE AUTO RFX 0 /HPF (0-3); SPECIFIC GRAVITY UR AUTO RFX 1.006 (1.002-1.035); SQUAM EPITHELIAL CELL UR AURFX 0 /HPF (0-6); WBC, URINE AUTO RFX 1 /HPF (0-3)
[2017-02-26 20:27] LABS: INR 0.92
== END 2017-02-26 21:20 | disposition home or self-care (01) ==
LOC: M ED 18:05
DX: R10.9 Unspecified abdominal pain (principal); E11.9 Type 2 diabetes mellitus without complications; I10 Essential (primary) hypertension; J45.909 Unspecified asthma, uncomplicated; G89.29 Other chronic pain; Z79.899 Other long term (current) drug therapy; Z79.51 Long term (current) use of inhaled steroids; Z88.8 Allergy status to other drugs, medicaments and biological substances; Z91.02 Food additives allergy status; Z88.5 Allergy status to narcotic agent; Z91.013 Allergy to seafood; Z98.890 Other specified postprocedural states
CPT/HCPCS: J2405

== ENCOUNTER 2017-03-11 09:13 | Outpatient (RCR) | payer OTHER | END 2017-04-02 | LOC: M PT 09:13 | DX: Z51.89 Encounter for other specified aftercare (principal); S82.899D Other fracture of unspecified lower leg, subsequent encounter for closed fracture with routine healing ==

== ENCOUNTER → 2017-04-08 | Outpatient (CLI) | payer OTHER | LOC: M CARPUL 12:24 | DX: J45.998 Other asthma (principal) | CPT/HCPCS: 94060 ==

== ENCOUNTER → 2017-05-05 | Outpatient (CLI) | payer OTHER | LOC: M SLEEP HO 12:57 | DX: G47.33 Obstructive sleep apnea (adult) (pediatric) (principal) | CPT/HCPCS: G0399 ==

== ENCOUNTER → 2017-05-09 | Outpatient (CLI) | payer OTHER | LOC: M RAD 12:41 | DX: M25.532 Pain in left wrist (principal); M25.571 Pain in right ankle and joints of right foot | CPT/HCPCS: 73110 ==

== ENCOUNTER 2017-05-22 19:42 | Emergency (ER) | payer OTHER ==
[2017-05-22] MEDS: LORazepam 2 MG/ML VIAL (J2060) IM ×2 (20:07→20:26)
[2017-05-22] MEDS: diphenhydrAMINE INJ 50MG/ML VIAL (J1200) IM (20:07)
[2017-05-22] MEDS: HALOPERIDOL 5 MG/ML VIAL (J1630) IM (20:11)
[2017-05-22] MEDS: NS 1,000 ML IV (20:43)
[2017-05-22 20:56] LABS: BASO # 0.1 10^3/uL (0.0-0.2); BASO % 0.8 % (0.0-1.0); EOS % 0.3 % (0.0-3.0); HEMATOCRIT 39.2 % (36.0-47.0); HEMOGLOBIN 13.3 g/dl (12.0-16.0); IMMATURE GRANULOCYTE % 0.6 % (0-3.0); LYMPH # 1.4 10^3/uL (1.5-4.5); LYMPH % 17.3 % (24.0-44.0); MEAN CORPUSCULAR HEMOGLOBIN 29.5 pg (27.0-33.0); MEAN CORPUSCULAR HGB CONC 33.9 g/dl (32.0-36.5); MEAN CORPUSCULAR VOLUME 86.9 fl (80.0-96.0); MONO # 0.3 10^3/uL (0.0-0.8); MONO % 3.9 % (0.0-5.0); NEUTROPHILS # 6.1 10^3/uL (1.8-7.7); NEUTROPHILS % 77.1 % (36.0-66.0); PLATELET COUNT, AUTOMATED 239 10^3/uL (150-450); RED BLOOD COUNT 4.51 10^6/uL (4.00-5.40); RED CELL DISTRIBUTION WIDTH 13.1 % (11.5-14.5); WHITE BLOOD COUNT 7.9 10^3/uL (4.0-10.0)
[2017-05-22 21:15] LABS: CONTROL LINE HCG INT CTR LINE PRESENT; HCG, SERUM QUALITATIVE NEGATIVE (NEGATIVE)
[2017-05-22 21:22] LABS: OSMOLALITY SERUM 317 MOSM/KG (275-295)
[2017-05-22 21:23] LABS: CK-MB VALUE MASS 1.4 NG/ML (<3.6); CPK CREATINE PHOSPHOKINASE 77 U/L (26-192); MB/CK RELATIVE INDEX 1.81 (< OR =4); TROPONIN I < 0.02 NG/ML (< 0.10)
[2017-05-22 21:32] LABS: AMPHETAMINES LEVEL URINE NEGATIVE (NEGATIVE); BARBITURATES URINE NEGATIVE (NEGATIVE); BENZODIAZEPINES URINE NEGATIVE (NEGATIVE); CANNABINOIDS URINE POSITIVE (NEGATIVE); COCAINE METABOLITE URINE NEGATIVE (NEGATIVE); METHADONE URINE NEGATIVE (NEGATIVE); OPIATES URINE NEGATIVE (NEGATIVE); PHENCYCLIDINE URINE NEGATIVE (NEGATIVE)
[2017-05-22 21:35] LABS: ACETAMINOPHEN LEVEL < 2.0 UG/ML (10.0-30.0); ALBUMIN 3.4 GM/DL (3.2-5.2); ALBUMIN/GLOBULIN RATIO 0.89 (1.00-1.93); ALKALINE PHOSPHATASE 90 U/L (45-117); ALT/SGPT 31 U/L (12-78); ANION GAP 11 MEQ/L (8-16); AST/SGOT 24 U/L (7-37); BILIRUBIN,DIRECT 0.1 MG/DL (0.0-0.2); BILIRUBIN,TOTAL 0.2 MG/DL (0.2-1.0); BLOOD UREA NITROGEN 9 MG/DL (7-18); CALCIUM LEVEL 8.7 MG/DL (8.5-10.1); CARBON DIOXIDE LEVEL 24 MEQ/L (21-32); CHLORIDE LEVEL 106 MEQ/L (98-107); CPK CREATINE PHOSPHOKINASE 77 U/L (26-192); CREATININE FOR GFR 0.93 MG/DL (0.55-1.30); GLOMERULAR FILTRATION RATE > 60.0 (>60); GLUCOSE, FASTING 105 MG/DL (70-100); POTASSIUM SERUM 4.1 MEQ/L (3.5-5.1); SALICYLATE LEVEL < 1.7 MG/DL (5.0-30.0); SODIUM LEVEL 141 MEQ/L (136-145); THYROID STIMULATING HORMONE 0.577 uIU/ML (0.358-3.740); TOTAL PROTEIN 7.2 GM/DL (6.4-8.2)
== END 2017-05-23 03:06 | disposition home or self-care (01) ==
LOC: M ED 05-23 03:06
DX: F10.129 Alcohol abuse with intoxication, unspecified (principal); F19.10 Other psychoactive substance abuse, uncomplicated; F12.10 Cannabis abuse, uncomplicated; Z79.899 Other long term (current) drug therapy; Z91.02 Food additives allergy status; Z91.013 Allergy to seafood; Z88.5 Allergy status to narcotic agent; Z88.8 Allergy status to other drugs, medicaments and biological substances
CPT/HCPCS: J1200

== ENCOUNTER 2017-05-26 10:44 | Emergency (ER) | payer OTHER ==
[2017-05-26 12:53] LABS: BASO % 0.7 % (0.0-1.0); EOS % 0.7 % (0.0-3.0); HEMATOCRIT 41.6 % (36.0-47.0); HEMOGLOBIN 14.2 g/dl (12.0-16.0); IMMATURE GRANULOCYTE % 0.5 % (0-3.0); LYMPH # 1.5 10^3/uL (1.5-4.5); LYMPH % 25.6 % (24.0-44.0); MEAN CORPUSCULAR HEMOGLOBIN 29.6 pg (27.0-33.0); MEAN CORPUSCULAR HGB CONC 34.1 g/dl (32.0-36.5); MEAN CORPUSCULAR VOLUME 86.8 fl (80.0-96.0); MONO # 0.5 10^3/uL (0.0-0.8); MONO % 8.9 % (0.0-5.0); NEUTROPHILS # 3.7 10^3/uL (1.8-7.7); NEUTROPHILS % 63.6 % (36.0-66.0); PLATELET COUNT, AUTOMATED 220 10^3/uL (150-450); RED BLOOD COUNT 4.79 10^6/uL (4.00-5.40); WHITE BLOOD COUNT 5.9 10^3/uL (4.0-10.0)
[2017-05-26 13:03] LABS: INR 0.97
[2017-05-26 13:04] LABS: PARTIAL THROMBOPLASTIN TIME 28.8 SECONDS (26.8-37.9)
[2017-05-26 13:10] LABS: KETONE, URINE AUTO RFX NEGATIVE (NEGATIVE); LEUKOCYTE ESTERASE UR AUTO RFX NEGATIVE (NEGATIVE); MUCUS, URINE RFX SMALL (NEGATIVE); NITRITE, URINE AUTO RFX NEGATIVE (NEGATIVE); RBC, URINE AUTO RFX 1 /HPF (0-3); SPECIFIC GRAVITY UR AUTO RFX 1.027 (1.002-1.035); SQUAM EPITHELIAL CELL UR AURFX 2 /HPF (0-6); WBC, URINE AUTO RFX 1 /HPF (0-3)
[2017-05-26 13:26] LABS: CK-MB VALUE MASS 1.2 NG/ML (<3.6)
[2017-05-26 13:26] LABS: CPK CREATINE PHOSPHOKINASE 44 U/L (26-192)
[2017-05-26 13:27] LABS: ALBUMIN 3.3 GM/DL (3.2-5.2); ALBUMIN/GLOBULIN RATIO 0.87 (1.00-1.93); ALKALINE PHOSPHATASE 81 U/L (45-117); ALT/SGPT 28 U/L (12-78); ANION GAP 7 MEQ/L (8-16); AST/SGOT 19 U/L (7-37); BILIRUBIN,DIRECT 0.1 MG/DL (0.0-0.2); BILIRUBIN,TOTAL 0.3 MG/DL (0.2-1.0); BLOOD UREA NITROGEN 16 MG/DL (7-18); CALCIUM LEVEL 8.3 MG/DL (8.5-10.1); CARBON DIOXIDE LEVEL 24 MEQ/L (21-32); CHLORIDE LEVEL 109 MEQ/L (98-107); GLOMERULAR FILTRATION RATE > 60.0 (>60); GLUCOSE, FASTING 113 MG/DL (70-100); POTASSIUM SERUM 3.6 MEQ/L (3.5-5.1); SODIUM LEVEL 140 MEQ/L (136-145); TOTAL PROTEIN 7.1 GM/DL (6.4-8.2)
[2017-05-26 13:27] LABS: LACTIC ACID SEPSIS PROTOCOL 1.3 MMOL/L (0.4-2.0)
[2017-05-26 13:35] LABS: CONTROL LINE HCG INT CTR LINE PRESENT; HCG, SERUM QUALITATIVE NEGATIVE (NEGATIVE)
== END 2017-05-26 14:31 | disposition home or self-care (01) ==
LOC: M ED 10:44
DX: M54.16 Radiculopathy, lumbar region (principal); I10 Essential (primary) hypertension; M51.86 Other intervertebral disc disorders, lumbar region; M54.2 Cervicalgia; G43.909 Migraine, unspecified, not intractable, without status migrainosus; J45.909 Unspecified asthma, uncomplicated; F41.9 Anxiety disorder, unspecified; F43.10 Post-traumatic stress disorder, unspecified; F19.10 Other psychoactive substance abuse, uncomplicated; F60.9 Personality disorder, unspecified; F20.9 Schizophrenia, unspecified; Z87.820 Personal history of traumatic brain injury; Z86.19 Personal history of other infectious and parasitic diseases; F17.290 Nicotine dependence, other tobacco product, uncomplicated; F14.10 Cocaine abuse, uncomplicated; F12.10 Cannabis abuse, uncomplicated; Z79.899 Other long term (current) drug therapy; Z88.8 Allergy status to other drugs, medicaments and biological substances; Z88.5 Allergy status to narcotic agent; Z91.013 Allergy to seafood; Z91.02 Food additives allergy status
CPT/HCPCS: 93971

== ENCOUNTER → 2017-05-29 | Outpatient (CLI) | payer OTHER | LOC: M RAD 08:22 | DX: M54.2 Cervicalgia (principal); M54.5 Low back pain; R42 Dizziness and giddiness | CPT/HCPCS: 72040 ==

== ENCOUNTER → 2017-05-30 | Outpatient (CLI) | payer OTHER | LOC: M RAD 16:26 | DX: M54.2 Cervicalgia (principal); M54.5 Low back pain; R42 Dizziness and giddiness | CPT/HCPCS: 93880 ==

== ENCOUNTER → 2017-06-07 | Outpatient (CLI) | payer OTHER | LOC: M RAD 10:40 | DX: R42 Dizziness and giddiness (principal) | CPT/HCPCS: 70551 ==

== ENCOUNTER → 2017-08-05 | Outpatient (CLI) | payer OTHER | LOC: M RAD 09:17 | DX: R29.2 Abnormal reflex (principal) | CPT/HCPCS: 72141 ==

== ENCOUNTER → 2017-09-30 | Outpatient (CLI) | payer OTHER ==
[~2017-09-30] MED LIST changes: -/TIZA4TA PO; -ABIL300I IM; -ALBU17IN2 INH; -ALBUTEROL INH; -AMOX500C PO; -CLEO300C2 PO; -DICLOFENAC POTASSIUM PO; -IBUP600T OR; -MEDR1VL IM; +METHACHOLINE KIT (J7674) INH; -NAPR500T PO; -NORCOTAB PO; -PRED20TA PO; -PRENTAB8 PO; -PROZ40CA PO; -REXU1TAB PO; -TRAZ1TAB14 PO; -VERA240T14 PO; -VITA1TAB27 PO; -ZIPS25CA3 PO; -ZONI100C2 PO
== END ==
LOC: M CARPUL 13:00
DX: R06.00 Dyspnea, unspecified (principal); R94.2 Abnormal results of pulmonary function studies

== ENCOUNTER 2017-10-15 20:26 | Emergency (ER) | payer OTHER ==
[2017-10-16] MEDS ORDERED: NORCO, ANEXSIA 5/325MG TABLET (HYDROcodone/ACETAMINOPHEN) PO
[2017-10-16] MEDS ORDERED: KETOROLAC TROMETHAMINE 10 MG TAB PO
== END 2017-10-16 00:15 | disposition home or self-care (01) ==
LOC: M ED 20:26
DX: S13.4XXD Sprain of ligaments of cervical spine, subsequent encounter (principal); X58.XXXD Exposure to other specified factors, subsequent encounter; Y92.9 Unspecified place or not applicable; Y93.9 Activity, unspecified; Y99.9 Unspecified external cause status; I10 Essential (primary) hypertension; G43.909 Migraine, unspecified, not intractable, without status migrainosus; J45.909 Unspecified asthma, uncomplicated; Z79.899 Other long term (current) drug therapy; Z91.013 Allergy to seafood; Z88.5 Allergy status to narcotic agent; Z88.8 Allergy status to other drugs, medicaments and biological substances; Z91.02 Food additives allergy status
CPT/HCPCS: 99282

== ENCOUNTER → 2018-01-29 | Outpatient (CLI) | payer OTHER | LOC: M CARPUL 07:55 | DX: R06.00 Dyspnea, unspecified (principal); R94.2 Abnormal results of pulmonary function studies | CPT/HCPCS: J7674 ==

== ENCOUNTER 2018-02-07 17:51 | Emergency (ER) | payer OTHER ==
[2018-02-07] MEDS: NS 1,000 ML IV (18:24)
[2018-02-07] MEDS: METOCLOPRAMIDE INJ 10MG/2ML VIAL (J2765) IV (18:25)
[2018-02-07 18:32] LABS: APPEARANCE, URINE HAZY (CLEAR); BACTERIA, URINE AUTO NEGATIVE (NEGATIVE); BILIRUBIN, URINE AUTO NEGATIVE (NEGATIVE); BLOOD, URINE BLOOD NEGATIVE (NEGATIVE); COLOR, URINE YELLOW (YELLOW); GLUCOSE, URINE (UA) AUTO NEGATIVE (NEGATIVE); KETONE, URINE AUTO NEGATIVE (NEGATIVE); LEUKOCYTE ESTERASE, URINE AUTO NEGATIVE (NEGATIVE); MUCUS, URINE SMALL (NEGATIVE); NITRITE, URINE AUTO NEGATIVE (NEGATIVE); PROTEIN, URINE AUTO NEGATIVE (NEGATIVE); RBC, URINE AUTO 1 /HPF (0-3); SQUAMOUS EPITHELIAL CELL UR AU 2 /HPF (0-6); UROBILINOGEN, URINE AUTO 0.2 mg/dL (0.0-2.0); WBC, URINE AUTO 1 /HPF (0-3)
[2018-02-07 18:50] LABS: BASO % 0.5 % (0.0-1.0); EOS % 0.7 % (0.0-3.0); HEMOGLOBIN 14.7 g/dl (12.0-15.5); IMMATURE GRANULOCYTE % 0.3 % (0-3.0); LYMPH # 1.1 10^3/uL (1.5-4.5); LYMPH % 18.9 % (24.0-44.0); MEAN CORPUSCULAR HEMOGLOBIN 30.4 pg (27.0-33.0); MEAN CORPUSCULAR HGB CONC 34.2 g/dl (32.0-36.5); MEAN CORPUSCULAR VOLUME 88.8 fl (80.0-96.0); MONO # 0.4 10^3/uL (0.0-0.8); MONO % 6.7 % (0.0-5.0); NEUTROPHILS # 4.2 10^3/uL (1.8-7.7); NEUTROPHILS % 72.9 % (36.0-66.0); PLATELET COUNT, AUTOMATED 165 10^3/uL (150-450); RED BLOOD COUNT 4.84 10^6/uL (4.00-5.40); RED CELL DISTRIBUTION WIDTH 13.2 % (11.5-14.5); WHITE BLOOD COUNT 5.8 10^3/uL (4.0-10.0)
[2018-02-07 18:55] LABS: ALBUMIN/GLOBULIN RATIO 0.71 (1.00-1.93); ALKALINE PHOSPHATASE 88 U/L (45-117); ALT/SGPT 31 U/L (12-78); AMYLASE 26 U/L (25-115); ANION GAP 7 MEQ/L (8-16); AST/SGOT 25 U/L (7-37); BILIRUBIN,DIRECT < 0.1 MG/DL (0.0-0.2); BILIRUBIN,TOTAL 0.4 MG/DL (0.2-1.0); BLOOD UREA NITROGEN 17 MG/DL (7-18); CALCIUM LEVEL 8.3 MG/DL (8.5-10.1); CARBON DIOXIDE LEVEL 24 MEQ/L (21-32); CHLORIDE LEVEL 108 MEQ/L (98-107); CREATININE FOR GFR 0.88 MG/DL (0.55-1.30); GLOMERULAR FILTRATION RATE > 60.0 (>60); GLUCOSE, FASTING 112 MG/DL (70-100); LIPASE 113 U/L (73-393); POTASSIUM SERUM 3.6 MEQ/L (3.5-5.1); SODIUM LEVEL 139 MEQ/L (136-145); TOTAL PROTEIN 7.2 GM/DL (6.4-8.2)
[2018-02-07 19:18] LABS: CONTROL LINE UCG INT CTR LINE PRESENT; URINE PREG TEST NEGATIVE (NEGATIVE)
== END 2018-02-07 19:56 | disposition home or self-care (01) ==
LOC: M ED 17:51
DX: A08.4 Viral intestinal infection, unspecified (principal); I10 Essential (primary) hypertension; J45.909 Unspecified asthma, uncomplicated; G43.909 Migraine, unspecified, not intractable, without status migrainosus; Z79.899 Other long term (current) drug therapy; Z91.013 Allergy to seafood; Z88.5 Allergy status to narcotic agent; Z88.8 Allergy status to other drugs, medicaments and biological substances; Z88.1 Allergy status to other antibiotic agents; Z91.89 Other specified personal risk factors, not elsewhere classified
CPT/HCPCS: J2765

== ENCOUNTER 2018-03-28 20:19 | Emergency (ER) | payer OTHER ==
[~2018-03-28] VITALS: Ht 167.6 cm; Wt 122.7 kg
[~2018-03-28 20:19] MED LIST changes: +/TIZA4TA PO; +ABIL300I IM; +ALBU17IN2 INH; +ALBUTEROL INH; +AMOX500C PO; +ASMA16.7 IN; +CLEO300C2 PO; +DICLOFENAC POTASSIUM PO; +HYDR-643 PO; +IBUP-1022 PO; +IBUP-1114 PO; +IBUP600T OR; +KETO10TAB PO; +MEDR1VL IM; -METHACHOLINE KIT (J7674) INH; +NAPR-50 PO; +NAPR-885 PO; +NORCOTAB PO; +PRAZ2CAP; +PRED20TA PO; +PREG100CA PO; +PRENTAB8 PO; +PROZ40CA PO; +REXU1TAB PO; +ROBA500T PO; +TRAZ1TAB14 PO; +VERA240T14 PO; +VITA1TAB27 PO; +VITA50005; +ZIPS25CA3 PO; +ZOFR4TAB14 PO; +ZONI100C2 PO
[2018-03-28] MEDS ORDERED: SE-NTAB3 PO (20:24)
[2018-03-28] MEDS ORDERED: COLA100C5 PO (20:24)
[2018-03-28] MEDS ORDERED: PROAAER10 INH (22:10)
[2018-03-28] MEDS ORDERED: AMOX500C PO (22:10)
[2018-03-28 22:16] VITALS: BP 118/75
== END 2018-03-28 22:17 | disposition home or self-care (01) ==
LOC: M ED 20:19
DX: J20.9 Acute bronchitis, unspecified (principal); J32.9 Chronic sinusitis, unspecified; I10 Essential (primary) hypertension; J98.4 Other disorders of lung; Z91.048 Other nonmedicinal substance allergy status; Z88.8 Allergy status to other drugs, medicaments and biological substances; Z88.5 Allergy status to narcotic agent; Z91.013 Allergy to seafood

== ENCOUNTER → 2018-03-30 | Outpatient (CLI) | payer OTHER ==
[~2018-03-30] MED LIST changes: +COLA100C5 PO; +PROAAER10 INH; +SE-NTAB3 PO
[2018-03-30 15:14] LABS: BASO # 0.1 10^3/uL (0.0-0.2); BASO % 0.7 % (0.0-1.0); EOS # 0.2 10^3/uL (0.0-0.50); EOS % 2.5 % (0.0-3.0); HEMATOCRIT 38.8 % (36.0-47.0); HEMOGLOBIN 13.2 g/dl (12.0-15.5); LYMPH # 2.2 10^3/uL (1.5-4.5); LYMPH % 23.4 % (24.0-44.0); MEAN CORPUSCULAR HEMOGLOBIN 30.5 pg (27.0-33.0); MEAN CORPUSCULAR VOLUME 89.6 fl (80.0-96.0); MONO # 0.6 10^3/uL (0.0-0.8); NEUTROPHILS # 6.2 10^3/uL (1.8-7.7); PLATELET COUNT, AUTOMATED 200 10^3/uL (150-450); RED BLOOD COUNT 4.33 10^6/uL (4.00-5.40); WHITE BLOOD COUNT 9.2 10^3/uL (4.0-10.0)
[2018-03-30 16:02] LABS: RUBELLA IgG QUALITATIVE IMMUNE (IMMUNE)
[2018-03-30 16:27] LABS: HEPATITIS C VIRUS ABY INDEX 0.8 INDEX (<0.8)
[2018-03-30 17:02] LABS: GC DNA AMPLIFICATION NEGATIVE (NEGATIVE)
[2018-03-31 10:30] LABS: CHLAMYDIA DNA AMPLIFICATION NEGATIVE (NEGATIVE)
[2018-03-31 10:31] LABS: HIV 1&2 SCREEN CENTAUR NEGATIVE (NEGATIVE)
== END ==
LOC: M LAB 14:00
PROVIDERS: ATTEND Specialist
DX: Z34.81 Encounter for supervision of other normal pregnancy, first trimester (principal); Z3A.10 10 weeks gestation of pregnancy

== ENCOUNTER 2018-04-07 12:29 | Emergency (ER) | payer OTHER ==
[~2018-04-07] VITALS: Ht 167.6 cm; Wt 127.3 kg
[2018-04-07] MEDS ORDERED: GLYC2SUP (12:36)
[2018-04-07 13:11] LABS: BASO # 0.1 10^3/uL (0.0-0.2); BASO % 0.6 % (0.0-1.0); EOS # 0.2 10^3/uL (0.0-0.50); EOS % 1.9 % (0.0-3.0); HEMATOCRIT 39.7 % (36.0-47.0); HEMOGLOBIN 13.6 g/dl (12.0-15.5); LYMPH # 2.1 10^3/uL (1.5-4.5); LYMPH % 23.3 % (24.0-44.0); MEAN CORPUSCULAR HEMOGLOBIN 30.8 pg (27.0-33.0); MEAN CORPUSCULAR HGB CONC 34.3 g/dl (32.0-36.5); MONO # 0.6 10^3/uL (0.0-0.8); MONO % 6.7 % (0.0-5.0); NEUTROPHILS % 67.1 % (36.0-66.0); PLATELET COUNT, AUTOMATED 205 10^3/uL (150-450); RED BLOOD COUNT 4.41 10^6/uL (4.00-5.40)
[2018-04-07 13:30] LABS: ALBUMIN 3.2 GM/DL (3.2-5.2); ALT/SGPT 24 U/L (12-78); BILIRUBIN,DIRECT 0.1 MG/DL (0.0-0.2); BILIRUBIN,TOTAL 0.4 MG/DL (0.2-1.0); BLOOD UREA NITROGEN 8 MG/DL (7-18); CALCIUM LEVEL 8.6 MG/DL (8.5-10.1); CARBON DIOXIDE LEVEL 23 MEQ/L (21-32); CHLORIDE LEVEL 107 MEQ/L (98-107); CREATININE FOR GFR 0.75 MG/DL (0.55-1.30); GLOMERULAR FILTRATION RATE > 60.0 (>60); GLUCOSE, FASTING 105 MG/DL (70-100); LIPASE 99 U/L (73-393); POTASSIUM SERUM 4.1 MEQ/L (3.5-5.1); SODIUM LEVEL 138 MEQ/L (136-145); TOTAL PROTEIN 6.7 GM/DL (6.4-8.2)
[2018-04-07] MEDS ORDERED: RANI150C PO (15:44)
[2018-04-07 16:11] VITALS: BP 140/72
== END 2018-04-07 16:46 | disposition home or self-care (01) ==
LOC: M ED 12:29
DX: O26.891 Other specified pregnancy related conditions, first trimester (principal); R10.13 Epigastric pain

== ENCOUNTER 2018-04-19 14:59 | Emergency (ER) | payer OTHER ==
[~2018-04-19] VITALS: Ht 167.6 cm; Wt 122.7 kg
[~2018-04-19 14:59] MED LIST changes: +GLYC2SUP; +RANI150C PO
[2018-04-19] MEDS ORDERED: ACETAMINOPHEN 325 MG TAB PO ONE (17:45)
--- NOTE | 2018-04-19 19:00 | REPVR ---
EXAM: US Left Duplex Upper Extremity Veins, Limited EXAM DATE/TIME: 04/19/2018 6:27 PM CLINICAL HISTORY: 37 years old, female; Pain; Arn, upper and arm; Left; Additional info: Left arm pain, swelling, (preg), R/O dvt TECHNIQUE: Real-time Duplex ultrasound of the Left Upper Extremity with 2-D nunez scale, color Doppler flow and spectral waveform analysis. Limited exam focused on the left upper extremity veins. COMPARISON: No relevant prior studies available. FINDINGS: Left deep veins: Unremarkable. Axillary and brachial veins are patent throughout without thrombus. Normal Doppler waveforms. Normal compressibility and/or augmentation response. Visualized internal jugular and subclavian veins are patent. Left superficial veins: Unremarkable. Visualized cephalic and basilic veins are patent without thrombus. Soft tissues: Unremarkable. IMPRESSION: No acute findings. No evidence of deep vein thrombosis. Electronically signed by: Tara Hwang On 04/19/2018 19:00:06 PM
[2018-04-19 19:32] VITALS: BP 149/65
== END 2018-04-19 19:33 | disposition home or self-care (01) ==
LOC: M ED 14:59
DX: O99.89 Other specified diseases and conditions complicating pregnancy, childbirth and the puerperium (principal); G56.02 Carpal tunnel syndrome, left upper limb; G43.909 Migraine, unspecified, not intractable, without status migrainosus; O13.2 Gestational [pregnancy-induced] hypertension without significant proteinuria, second trimester; O99.352 Diseases of the nervous system complicating pregnancy, second trimester; O99.512 Diseases of the respiratory system complicating pregnancy, second trimester; O99.342 Other mental disorders complicating pregnancy, second trimester; Z86.19 Personal history of other infectious and parasitic diseases; Z86.59 Personal history of other mental and behavioral disorders; Z98.2 Presence of cerebrospinal fluid drainage device; O09.512 Supervision of elderly primigravida, second trimester; Z3A.14 14 weeks gestation of pregnancy; Z79.899 Other long term (current) drug therapy; Z88.1 Allergy status to other antibiotic agents; Z88.8 Allergy status to other drugs, medicaments and biological substances; Z88.5 Allergy status to narcotic agent; Z91.89 Other specified personal risk factors, not elsewhere classified; Z91.013 Allergy to seafood

== ENCOUNTER → 2018-04-22 | Outpatient (CLI) | payer OTHER | LOC: M SMT 14:04 | PROVIDERS: ATTEND Advanced Practice Midwife | DX: O09.522 Supervision of elderly multigravida, second trimester (principal) ==

== ENCOUNTER 2018-05-18 01:30 | Emergency (ER) | payer OTHER ==
[~2018-05-18] VITALS: Ht 167.6 cm; Wt 131.8 kg
[2018-05-18] MEDS ORDERED: GLYC2SUP (01:37)
[2018-05-18] MEDS ORDERED: NS 1,000 ML IV ONE (03:15)
[2018-05-18] MEDS ORDERED: METOCLOPRAMIDE INJ 10MG/2ML VIAL (J2765) IV ONE (03:15)
[2018-05-18 04:09] LABS: BASO % 0.6 % (0.0-1.0); EOS % 0.5 % (0.0-3.0); HEMATOCRIT 36.1 % (36.0-47.0); HEMOGLOBIN 12.6 g/dl (12.0-15.5); LYMPH # 1.1 10^3/uL (1.5-4.5); LYMPH % 16.3 % (24.0-44.0); MEAN CORPUSCULAR HEMOGLOBIN 31.1 pg (27.0-33.0); MEAN CORPUSCULAR HGB CONC 34.9 g/dl (32.0-36.5); MEAN CORPUSCULAR VOLUME 89.1 fl (80.0-96.0); MONO # 0.5 10^3/uL (0.0-0.8); MONO % 6.8 % (0.0-5.0); NEUTROPHILS # 4.9 10^3/uL (1.8-7.7); NEUTROPHILS % 74.9 % (36.0-66.0); PLATELET COUNT, AUTOMATED 182 10^3/uL (150-450); RED BLOOD COUNT 4.05 10^6/uL (4.00-5.40); WHITE BLOOD COUNT 6.6 10^3/uL (4.0-10.0)
[2018-05-18 04:35] LABS: ALBUMIN 2.7 GM/DL (3.2-5.2); ALT/SGPT 24 U/L (12-78); BILIRUBIN,DIRECT 0.1 MG/DL (0.0-0.2); BILIRUBIN,TOTAL 0.3 MG/DL (0.2-1.0); BLOOD UREA NITROGEN 7 MG/DL (7-18); CALCIUM LEVEL 8.2 MG/DL (8.5-10.1); CARBON DIOXIDE LEVEL 24 MEQ/L (21-32); CHLORIDE LEVEL 107 MEQ/L (98-107); CREATININE FOR GFR 0.66 MG/DL (0.55-1.30); GLOMERULAR FILTRATION RATE > 60.0 (>60); GLUCOSE, FASTING 103 MG/DL (70-100); LIPASE 91 U/L (73-393); POTASSIUM SERUM 3.9 MEQ/L (3.5-5.1); SODIUM LEVEL 138 MEQ/L (136-145); TOTAL PROTEIN 6.1 GM/DL (6.4-8.2)
[2018-05-18] MEDS ORDERED: REGL10TA6 PO (06:17)
[2018-05-18 06:43] VITALS: BP 139/84
== END 2018-05-18 07:03 | disposition home or self-care (01) ==
LOC: M ED 01:30
DX: O21.0 Mild hyperemesis gravidarum (principal); O09.512 Supervision of elderly primigravida, second trimester; Z79.899 Other long term (current) drug therapy; Z91.89 Other specified personal risk factors, not elsewhere classified; Z88.1 Allergy status to other antibiotic agents; Z88.8 Allergy status to other drugs, medicaments and biological substances; Z91.02 Food additives allergy status
CPT/HCPCS: 80048; 80076; 81001; 83690; 85025; 96361; 96374; 99284; J2765

== ENCOUNTER → 2018-05-28 | Outpatient (CLI) | payer OTHER ==
[~2018-05-28] MED LIST changes: +REGL10TA6 PO
--- NOTE | 2018-05-28 20:26 | REP ---
Clinical: Anatomical evaluation. Comparison: None . Findings: Examination demonstrates a single live intrauterine in cephalic presentation. motion is identified by technologist. Placenta is noted anterior and grade grade 1 without evidence for placenta previa or abruption. Amniotic fluid volume is normal. Cervix measures 3.6 cm in length and appears closed. No evidence for nuchal cord. Gestational age by current measurements 19 weeks 3 days with BENJI 10/19/2018 . FHR equals 147 beats per minute. BPD 4.7 cm 20 weeks 2 days HC 16.6 cm 18 weeks 2 days AC 14.0 cm 19 weeks 3 days FL 3.1 cm 18 weeks 4 days HL 2.8 cm 19 weeks 1 day HC/AC ratio 1.19 Estimated weight 295 grams ( 48 percentile). Anatomical assessment demonstrates normal structures including cranium, choroid plexus, cavum, cerebellum/posterior fossa, facial features, lungs, four-chamber heart/ventricular outflow tracts, diaphragm, stomach, cord insertion/three-vessel cord, kidneys/bladder, spine, and extremities. Impression: Single live intrauterine in cephalic presentation demonstrating appropriate estimated weight. Anatomical assessment is complete and normal. Electronically Signed by Alok Virk MD 05/28/2018 08:17 P
== END ==
LOC: M SMT 10:25
PROVIDERS: ATTEND Advanced Practice Midwife
DX: O09.512 Supervision of elderly primigravida, second trimester (principal); Z3A.18 18 weeks gestation of pregnancy

== ENCOUNTER → 2018-07-16 | Outpatient (CLI) | payer OTHER ==
[~2018-07-16] MED LIST changes: -/TIZA4TA PO; +HYDR-3715 PO; -NAPR-50 PO; +NAPR-837 PO; -NORCOTAB PO; +TIZA1TAB19 PO; -VERA240T14 PO; +VERA240T3 PO
== END ==
LOC: M SMT 08:08
PROVIDERS: ATTEND Advanced Practice Midwife
DX: Z53.9 Procedure and treatment not carried out, unspecified reason (principal); O09.512 Supervision of elderly primigravida, second trimester; Z3A.00 Weeks of gestation of pregnancy not specified

== ENCOUNTER → 2018-07-20 | Outpatient (CLI) | payer OTHER ==
[2018-07-20 14:02] LABS: BASO # 0.1 10^3/uL (0.0-0.2); BASO % 0.5 % (0.0-1.0); EOS # 0.3 10^3/uL (0.0-0.50); EOS % 2.6 % (0.0-3.0); HEMATOCRIT 35.6 % (36.0-47.0); HEMOGLOBIN 12.2 g/dl (12.0-15.5); LYMPH # 2.4 10^3/uL (1.5-4.5); LYMPH % 19.3 % (24.0-44.0); MEAN CORPUSCULAR HEMOGLOBIN 30.9 pg (27.0-33.0); MEAN CORPUSCULAR HGB CONC 34.3 g/dl (32.0-36.5); MEAN CORPUSCULAR VOLUME 90.1 fl (80.0-96.0); MONO # 0.7 10^3/uL (0.0-0.8); MONO % 5.8 % (0.0-5.0); NEUTROPHILS # 8.9 10^3/uL (1.8-7.7); NEUTROPHILS % 70.7 % (36.0-66.0); PLATELET COUNT, AUTOMATED 233 10^3/uL (150-450); RED BLOOD COUNT 3.95 10^6/uL (4.00-5.40); WHITE BLOOD COUNT 12.5 10^3/uL (4.0-10.0)
== END ==
LOC: M LAB 12:12
PROVIDERS: ATTEND Advanced Practice Midwife
DX: Z36.89 Encounter for other specified antenatal screening (principal); O09.512 Supervision of elderly primigravida, second trimester; Z3A.00 Weeks of gestation of pregnancy not specified

== ENCOUNTER → 2018-08-14 | Outpatient (CLI) | payer OTHER ==
[~2018-08-14] MED LIST changes: +D3 H10002 PO
[2018-08-20 00:06] LABS: ANTI DS-DNA AB <1:10 titer (.); CARDIOLIPIN IGA ANTIBODY <9 APL U/mL (0-11); CARDIOLIPIN IGG ANTIBODY <9 GPL U/mL (0-14); CARDIOLIPIN IGM ANTIBODY <9 MPL U/mL (0-12); SSA SJOGRENS A <0.2 AI (0.0-0.9); SSB SJOGRENS B <0.2 AI (0.0-0.9)
== END ==
LOC: M LAB 11:16
PROVIDERS: ATTEND Advanced Practice Midwife
DX: O26.893 Other specified pregnancy related conditions, third trimester (principal); O09.523 Supervision of elderly multigravida, third trimester; M32.9 Systemic lupus erythematosus, unspecified

== ENCOUNTER 2018-08-18 08:41 | Outpatient (CLI) | payer OTHER ==
[~2018-08-18] VITALS: Ht 167.6 cm; Wt 124.5 kg
[~2018-08-18 08:41] MED LIST changes: -D3 H10002 PO
[2018-08-18 09:04] VITALS: BP 139/75
[2018-08-18] MEDS ORDERED: D3 H10002 PO (09:06)
[2018-08-18 10:03] VITALS: BP 134/77
== END 2018-08-18 10:02 | disposition home or self-care (01) ==
LOC: M LDO 08:41
PROVIDERS: ATTEND Obstetrics & Gynecology
DX: O36.8130 Decreased fetal movements, third trimester, not applicable or unspecified (principal); O47.03 False labor before 37 completed weeks of gestation, third trimester; Z3A.31 31 weeks gestation of pregnancy

== ENCOUNTER 2018-08-25 23:22 | Emergency (ER) | payer OTHER ==
[~2018-08-25] VITALS: Ht 167.6 cm; Wt 127.0 kg
[~2018-08-25 23:22] MED LIST changes: +D3 H10002 PO
[2018-08-26] MEDS ORDERED: ACETAMINOPHEN 500 MG TAB PO ONE (03:00)
[2018-08-26] MEDS ORDERED: NS 1,000 ML IV ONE (03:00)
[2018-08-26 03:19] LABS: BASO # 0.1 10^3/uL (0.0-0.2); BASO % 0.6 % (0.0-1.0); EOS # 0.3 10^3/uL (0.0-0.50); HEMATOCRIT 35.8 % (36.0-47.0); HEMOGLOBIN 12.4 g/dl (12.0-15.5); LYMPH % 23.5 % (24.0-44.0); MEAN CORPUSCULAR HEMOGLOBIN 31.1 pg (27.0-33.0); MEAN CORPUSCULAR HGB CONC 34.6 g/dl (32.0-36.5); MEAN CORPUSCULAR VOLUME 89.7 fl (80.0-96.0); MONO % 7.6 % (0.0-5.0); NEUTROPHILS # 8.2 10^3/uL (1.8-7.7); NEUTROPHILS % 65.4 % (36.0-66.0); PLATELET COUNT, AUTOMATED 220 10^3/uL (150-450); RED BLOOD COUNT 3.99 10^6/uL (4.00-5.40); WHITE BLOOD COUNT 12.6 10^3/uL (4.0-10.0)
[2018-08-26 03:43] LABS: BLOOD UREA NITROGEN 8 MG/DL (7-18); CALCIUM LEVEL 8.9 MG/DL (8.5-10.1); CARBON DIOXIDE LEVEL 24 MEQ/L (21-32); CHLORIDE LEVEL 108 MEQ/L (98-107); CK-MB VALUE MASS 1.9 NG/ML (<3.6); CPK CREATINE PHOSPHOKINASE 30 U/L (26-192); CREATININE FOR GFR 0.69 MG/DL (0.55-1.30); GLOMERULAR FILTRATION RATE > 60.0 (>60); GLUCOSE, FASTING 100 MG/DL (70-100); MB/CK RELATIVE INDEX 6.33 (< OR =4); POTASSIUM SERUM 3.9 MEQ/L (3.5-5.1); SODIUM LEVEL 141 MEQ/L (136-145); TROPONIN I < 0.02 NG/ML (< 0.10)
[2018-08-26 04:22] VITALS: BP 141/68
--- NOTE | 2018-08-26 21:37 | ECGEPIP ---
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
== END 2018-08-26 04:31 | disposition home or self-care (01) ==
LOC: M ED 23:22
DX: O99.89 Other specified diseases and conditions complicating pregnancy, childbirth and the puerperium (principal); R07.9 Chest pain, unspecified; Z3A.38 38 weeks gestation of pregnancy; G47.33 Obstructive sleep apnea (adult) (pediatric); R41.3 Other amnesia; Z88.5 Allergy status to narcotic agent; Z88.8 Allergy status to other drugs, medicaments and biological substances; Z91.013 Allergy to seafood; Z91.018 Allergy to other foods; Z91.048 Other nonmedicinal substance allergy status

== ENCOUNTER → 2018-08-26 | Outpatient (CLI) | payer OTHER ==
--- NOTE | 2018-08-26 12:53 | REP ---
Clinical: well-being Comparison: 05/28/2018 . Findings: Examination demonstrates a single live intrauterine in cephalic presentation. motion is identified by technologist. Placenta is noted anterior and grade one without evidence for placenta previa or abruption. Amniotic fluid volume is normal. Cervix measures 3.9 cm in length and appears closed. Nuchal cord cannot be excluded. Gestational age by first US 32 weeks 2 days with BENJI 10/19/2018 . Gestational age by current measurements 31 weeks 6 days with BENJI 10/22/2018 . FHR equals 1894 beats per minute. Estimated weight by current measurements 1894 grams ( 39th percentile). Biophysical profile score: 8/8 Amniotic fluid index: 16.5 cm (8.5 - 24.3) Umbilical cord SD ratio: 2.24 (2.35 - 3.35) Impression: 1. Single live intrauterine in cephalic presentation demonstrating appropriate interval growth. 2. Biophysical profile score and amniotic fluid volume are normal. 3. Umbilical cord SD ratio minimally below normal range 4. Nuchal cord cannot be excluded. Electronically Signed by Alok Virk MD 08/26/2018 12:44 P
== END ==
LOC: M RAD 11:49
PROVIDERS: ATTEND Advanced Practice Midwife
DX: O99.113 Other diseases of the blood and blood-forming organs and certain disorders involving the immune mechanism complicating pregnancy, third trimester (principal); M32.9 Systemic lupus erythematosus, unspecified; Z3A.31 31 weeks gestation of pregnancy

== ENCOUNTER → 2018-09-02 | Outpatient (CLI) | payer OTHER ==
--- NOTE | 2018-09-02 18:55 | REP ---
Clinical: well-being Comparison: 08/26/2018 . Findings: Examination demonstrates a single live intrauterine in cephalic presentation. motion is identified by technologist. Placenta is noted anterior and grade 2 without evidence for placenta previa or abruption. Amniotic fluid volume is normal. Cervix appears closed. No evidence for nuchal cord. Gestational age by first US 33 weeks 2 days with BENJI 10/19/2018 . FHR equals 163 beats per minute. Biophysical profile score: 8/8 Umbilical cord SD ratio: 2.08 (2.00 - 3.00) Amniotic fluid index: 8.5 cm (8.2 - 24.6) Impression: Single live advanced gestation in cephalic presentation. Biophysical profile score equals 8/8 Amniotic fluid volume index lower limits of normal range. Electronically Signed by Alok Virk MD 09/02/2018 06:47 P
== END ==
LOC: M RAD 17:32
PROVIDERS: ATTEND Advanced Practice Midwife
DX: O99.119 Other diseases of the blood and blood-forming organs and certain disorders involving the immune mechanism complicating pregnancy, unspecified trimester (principal); M32.9 Systemic lupus erythematosus, unspecified; Z3A.33 33 weeks gestation of pregnancy

== ENCOUNTER → 2018-09-09 | Outpatient (CLI) | payer OTHER ==
--- NOTE | 2018-09-09 21:27 | REP ---
Clinical: well-being Comparison: None . Findings: Examination demonstrates a single live intrauterine in cephalic presentation. motion is identified by technologist. Placenta is noted anterior and grade one without evidence for placenta previa or abruption. Amniotic fluid volume is normal. Gestational age by first US 34 weeks 2 days with BENJI 10/19/2018 . FHR equals 161 beats per minute. Biophysical profile score: 8/8 Amniotic fluid index: 14.0 cm Umbilical cord SD ratio: 2.91 Impression: Normal examination. Biophysical profile score and amniotic fluid volume as well as umbilical cord SD ratio are normal. Electronically Signed by Alok Virk MD 09/09/2018 09:19 P
== END ==
LOC: M RAD 11:30
PROVIDERS: ATTEND Advanced Practice Midwife
DX: M32.9 Systemic lupus erythematosus, unspecified (principal); Z3A.34 34 weeks gestation of pregnancy

== ENCOUNTER → 2018-09-17 | Outpatient (REF) | payer OTHER | LOC: M LAB REF 12:57 | PROVIDERS: ATTEND Advanced Practice Midwife | DX: O09.523 Supervision of elderly multigravida, third trimester (principal) ==

== ENCOUNTER → 2018-09-24 | Outpatient (CLI) | payer OTHER ==
[~2018-09-24] MED LIST changes: +PRENTAB9 PO
--- NOTE | 2018-09-25 09:50 | REP ---
Clinical: well-being Comparison: 09/09/2018 . Findings: Examination demonstrates a single live intrauterine in cephalic presentation. motion is identified by technologist. Placenta is noted anterior and grade 2 without evidence for placenta previa or abruption. Amniotic fluid volume is normal. Cervix is closed. Gestational age by LMP 36 weeks 3-day with BENJI 10/19/2018 . Gestational age by current measurements 35 weeks 0 days with BENJI 10/29/2018 . FHR equals 152 beats per minute. Biophysical profile score 10/08 Amniotic fluid index: 13.9 cm Umbilical cord SD ratio: 2.31 Estimated weight 2822 grams ( 45th percentile). Impression: Single live intrauterine in cephalic presentation demonstrating appropriate interval growth. Biophysical profile score and amniotic fluid volume are normal. Electronically Signed by Alok Virk MD 09/25/2018 09:42 A
== END ==
LOC: M RAD 10:55
PROVIDERS: ATTEND Advanced Practice Midwife
DX: O99.113 Other diseases of the blood and blood-forming organs and certain disorders involving the immune mechanism complicating pregnancy, third trimester (principal); M32.9 Systemic lupus erythematosus, unspecified; Z3A.35 35 weeks gestation of pregnancy

== ENCOUNTER 2018-09-28 16:00 | Inpatient (IN) | payer OTHER ==
[2018-09-28] VITALS (35 sets, daily range): BP systolic 137–201; BP diastolic 59–104
[~2018-09-28] VITALS: Ht 167.6 cm; Wt 136.5 kg
[~2018-09-28 16:00] MED LIST changes: -PRENTAB9 PO
[2018-09-28] MEDS ORDERED: PRENTAB9 PO (16:27)
[2018-09-28 17:48] LABS: HEMATOCRIT 39.4 % (36.0-47.0); HEMOGLOBIN 13.6 g/dl (12.0-15.5); MEAN CORPUSCULAR HEMOGLOBIN 31.5 pg (27.0-33.0); MEAN CORPUSCULAR HGB CONC 34.5 g/dl (32.0-36.5); MEAN CORPUSCULAR VOLUME 91.2 fl (80.0-96.0); PLATELET COUNT, AUTOMATED 203 10^3/uL (150-450); RED BLOOD COUNT 4.32 10^6/uL (4.00-5.40); WHITE BLOOD COUNT 13.7 10^3/uL (4.0-10.0)
[2018-09-28] MEDS ORDERED: hydrALAZINE INJ 20 MG/ML VIAL IV ONE ×2 (18:00→19:30)
[2018-09-28 18:22] LABS: TOTAL PROTEIN,RANDOM URINE 28.5 MG/DL (0.0-12.0)
[2018-09-28] MEDS ORDERED: MAGNESIUM *L&D* 4 GM/100 ML BAG (40MG/ML) (J3475) IV ONE (18:30)
[2018-09-28] MEDS ORDERED: MAGNESIUM *L&D* 4 GM/100 ML BAG (40MG/ML) (J3475) As Ordered ONE (18:34)
[2018-09-28 18:44] LABS: ALT/SGPT 12 U/L (12-78); BILIRUBIN,TOTAL 0.3 MG/DL (0.2-1.0); CREATININE FOR GFR 0.76 MG/DL (0.55-1.30); GLOMERULAR FILTRATION RATE > 60.0 (>60); LDH LACTATE DEHYDROGENASE 254 U/L (84-246); URIC ACID 6.9 MG/DL (2.6-6.0)
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
[2018-09-28] MEDS: ACETAMINOPHEN 500 MG TAB PO PRN (19:00)
--- NOTE | 2018-09-28 19:43 | IPNPDOC ---
Obstetrical Progress Note Date of Service Sep 28, 2018 Subjective Patient reports she has a headache of 6/10. States she last took Tylenol 1000 mg at 0800 and her headache resolved. Objective Vital Signs Label Value Date Time Blood Pressure Assessment 171/81 09/28/18 1931 Vital Signs Date Time Temp Pulse Resp B/P (MAP) Pulse Ox O2 Delivery O2 Flow Rate FiO2 09/28/18 18:48 99.3 81 20 151/95 (113) Room Air Assessment Heart Rate (FHR): 140 Variability: Moderate Accelerations: Positive Decelerations: None Heart Rate Tracing: Category I Tocometer Contractions: Yes Frequency: regular Assessment and Plan EGA at Admission: 36.6 Status: Reassuring Additional Comments Dr. Arriaga notified of elevated BPs while on magnesium. His recommendation is Hydralazine 10 mg IV now. INEZ GAMEZ CNM Sep 28, 2018 19:43
[2018-09-28] MEDS ORDERED: miSOPROStol 50 MCG 1/2 TAB (S0191) PO ONE (20:30)
[2018-09-28] MEDS: NIFEdipine 10 MG CAP PO SCH (22:14)
--- NOTE | 2018-09-28 22:42 | IPNPDOC ---
Text Note Date of Service The patient was seen on 09/28/18. NOTE Dr. Arriaga present in L&D and reviewed BP's. Nifedipine ordered 10 mg PO Q6H. VS,Fishbone, I+O VS, Fishbone, I+O Laboratory Tests 09/28/18 17:39 Red Blood Count 4.32, Mean Corpuscular Volume 91.2, Mean Corpuscular Hemoglobin 31.5, Mean Corpuscular Hemoglobin Concent 34.5, Red Cell Distribution Width 13.6, Aspartate Amino Transf (AST/SGOT) 27, Alanine Aminotransferase (ALT/SGPT) 12, Lactate Dehydrogenase 254 H, Total Bilirubin 0.3, Uric Acid 6.9 H Vital Signs Date Time Temp Pulse Resp B/P (MAP) Pulse Ox O2 Delivery O2 Flow Rate FiO2 09/28/18 21:05 89 18 138/59 (85) 09/28/18 20:33 99.0 09/28/18 18:48 Room Air INEZ GAMEZ CNM Sep 28, 2018 22:42
[2018-09-29] VITALS (48 sets, daily range): BP systolic 72–165; BP diastolic 49–114
[2018-09-29] MEDS: MAG Sulf (OBGYN) 20GM/500ML 20,000 MG in APPROPRIATE DILUENT 1 EA IV SCH ×2 (00:17→04:52)
[2018-09-29] MEDS: LR 1,000 ML IV SCH ×2 (00:18→06:41)
[2018-09-29] MEDS ORDERED: miSOPROStol 50 MCG 1/2 TAB (S0191) PO ONE ×3 (01:00→11:30)
[2018-09-29] MEDS: ACETAMINOPHEN 500 MG TAB PO PRN ×3 (01:29→20:45)
[2018-09-29] MEDS: NIFEdipine 10 MG CAP PO SCH ×4 (04:00→22:04)
[2018-09-29] MEDS ORDERED: OXYTOCIN DRIP 30 UNITS in APPROPRIATE DILUENT 1 EA IV SCH (16:30)
[2018-09-30] VITALS (81 sets, daily range): BP systolic 83–215; BP diastolic 51–119
[2018-09-30] MEDS: MAG Sulf (OBGYN) 20GM/500ML 20,000 MG in APPROPRIATE DILUENT 1 EA IV SCH ×2 (00:58→18:34)
[2018-09-30] MEDS ORDERED: MAG Sulf (OBGYN) 20GM/500ML 20,000 MG in APPROPRIATE DILUENT 1 EA IV SCH (01:15)
[2018-09-30] MEDS: LR 1,000 ML IV SCH ×3 (02:21→19:00)
[2018-09-30] MEDS ORDERED: LR 500 ML IV ONE (03:00)
[2018-09-30 03:04] LABS: HEMATOCRIT 36.1 % (36.0-47.0); HEMOGLOBIN 12.6 g/dl (12.0-15.5); MEAN CORPUSCULAR HEMOGLOBIN 31.7 pg (27.0-33.0); MEAN CORPUSCULAR HGB CONC 34.9 g/dl (32.0-36.5); MEAN CORPUSCULAR VOLUME 90.9 fl (80.0-96.0); PLATELET COUNT, AUTOMATED 183 10^3/uL (150-450); RED BLOOD COUNT 3.97 10^6/uL (4.00-5.40); WHITE BLOOD COUNT 10.8 10^3/uL (4.0-10.0)
[2018-09-30] MEDS ORDERED: FENTANYL 2MCG/ML ROPIVACAINE 0.2% IN 0.9% NACL 100ML IVBAG As Ordered ONE (03:11)
[2018-09-30] MEDS: NIFEdipine 10 MG CAP PO SCH ×2 (04:00→10:00)
[2018-09-30] MEDS ORDERED: FENTANYL/ROPIVACAINE/NACL BAG 100 ML EPIDURAL SCH (04:15)
[2018-09-30] MEDS ORDERED: REFRIGERATOR IV KEYS XX PRN (04:15)
[2018-09-30] MEDS ORDERED: ePHEDrine SULFATE 25 MG/5 ML(5MG/ML) SYRINGE IV PRN (04:15)
[2018-09-30] MEDS ORDERED: ONDANSETRON 4MG/2ML VIAL (J2405) IV PRN ×3 (04:15→19:00)
[2018-09-30] MEDS ORDERED: diphenhydrAMINE INJ 50MG/ML VIAL (J1200) IV PRN ×2 (04:15→17:55)
[2018-09-30] MEDS ORDERED: EPIDURAL COMMENT XX SCH (04:15)
[2018-09-30] MEDS ORDERED: EPIDURAL/PCA KEYS XX PRN (04:15)
[2018-09-30] MEDS ORDERED: NALOXONE INJ 0.4 MG/1 ML VIAL (J2310) IV PRN ×3 (04:15→17:55)
[2018-09-30 14:16] LABS: HEMATOCRIT 38.3 % (36.0-47.0); MEAN CORPUSCULAR HEMOGLOBIN 31.1 pg (27.0-33.0); MEAN CORPUSCULAR HGB CONC 33.9 g/dl (32.0-36.5); MEAN CORPUSCULAR VOLUME 91.6 fl (80.0-96.0); PLATELET COUNT, AUTOMATED 173 10^3/uL (150-450); RED BLOOD COUNT 4.18 10^6/uL (4.00-5.40); WHITE BLOOD COUNT 10.4 10^3/uL (4.0-10.0)
[2018-09-30] MEDS ORDERED: AZITHROMYCIN INJ 500MG VIAL (J0456) As Ordered ONE (16:39)
[2018-09-30] MEDS ORDERED: ceFAZolin 2 GM/D5W 50 ML IV BAG (J0690 PER 500MG) As Ordered ONE (16:40)
[2018-09-30] MEDS ORDERED: AZITHROMYCIN INJ 500 MG, VIAL MATE ADAPTER 1 EACH in D5W 250 ML IV ONE (16:45)
[2018-09-30] MEDS ORDERED: BICITRA 30ML SOLN UDC PO ONE (16:45)
[2018-09-30 17:35] LABS: CORD GAS ABE A -5.9; CORD GAS HCO3 A 22.8 MEQ/L; CORD GAS O2 SAT A 35.8 %; CORD GAS PCO2 A 57.4 mmHg; CORD GAS PH A 7.216 UNITS; CORD GAS PO2 A 19.3 mmHg; CORD GAS SBC A 18.2 MEQ/L; CORD GAS TCO2 A 24.5 MEQ/L
[2018-09-30] MEDS ORDERED: OXYTOCIN DRIP 30 UNITS in APPROPRIATE DILUENT 1 EA IV SCH (17:52)
[2018-09-30] MEDS ORDERED: METOCLOPRAMIDE INJ 10MG/2ML VIAL (J2765) IV PRN ×2 (17:55→19:00)
[2018-09-30] MEDS ORDERED: NALBUPHINE HCL 10 MG/ML AMP (J2300) IV PRN (17:55)
[2018-09-30] MEDS ORDERED: PERCOCET 5MG/325MG TAB PO PRN ×2 (18:00→19:00)
[2018-09-30] MEDS ORDERED: MEASLES,MUMPS,RUBELLA VACCINE INJ (MMR-II) (90707) SC SCH (18:00)
[2018-09-30] MEDS ORDERED: MOM 30ML SUSPENSION UDC PO PRN (18:00)
[2018-09-30] MEDS ORDERED: RHOGAM 300 MCG (1500 IU) INJ (J2790) IM SCH (18:00)
[2018-09-30] MEDS ORDERED: ACETAMINOPHEN 500 MG TAB PO PRN (18:00)
[2018-09-30] MEDS ORDERED: OXYTOCIN 30 UNITS IN 0.9% NaCl 500ML IV BAG (J2590) As Ordered ONE (18:28)
[2018-09-30] MEDS ORDERED: MAGNESIUM SULFATE 4% INJ 20GM/500ML (40MG/ML) (J3475) As Ordered ONE (18:31)
[2018-09-30] MEDS ORDERED: hydrALAZINE INJ 20 MG/ML VIAL IV ONE ×2 (18:45→19:15)
[2018-09-30] MEDS ORDERED: hydrALAZINE INJ 20 MG/ML VIAL As Ordered ONE ×2 (18:46→19:12)
[2018-09-30] MEDS ORDERED: MEPERIDINE INJ 25 MG/ML VIAL (J2175) IV PRN (19:00)
[2018-09-30] MEDS ORDERED: fentaNYL 100 MCG/2 ML INJECTION (J3010) IV PRN (19:00)
[2018-09-30] MEDS ORDERED: LABETALOL HCL 100 MG/20 ML VIAL As Ordered ONE (19:33)
[2018-09-30] MEDS ORDERED: NIFEdipine 10 MG CAP PO ONE (19:45)
--- NOTE | 2018-09-30 20:47 | RO ---
DATE OF PROCEDURE: 09/30/2018 Leanna is a 38-year-old female who was admitted at 37+ weeks gestation with severe preeclampsia and underwent induction. She had Cytotec followed by Teague bulb induction; had failed induction. The patient currently on magnesium sulfate. After counseling in no cervical changes, a decision was made to proceed with primary section. PREOPERATIVE DIAGNOSES 1. Intrauterine at 37 weeks gestation. 2. Severe preeclampsia. 3. Failed induction. POSTOPERATIVE DIAGNOSIS 1. Intrauterine at 37 weeks gestation. 2. Severe preeclampsia. 3. Failed induction. 4. Nuchal cord times two. PROCEDURE: Primary low transverse section via Pfannenstiel incision. SURGEON: Molina Villaseñor MD DOCK GUARD: Thais Montesinos CNM ANESTHESIA: Epidural. COMPLICATIONS: None. ESTIMATED BLOOD LOSS: 600 mL DESCRIPTION OF PROCEDURE: After obtaining informed consent the patient was taken to the operating room where epidural anesthetic was found to be adequate. She was then draped and prepped in usual sterile fashion in the supine position. At this point, a Pfannenstiel incision was made with the first knife with the help of Thais Montesinos, the incision was carried down to the fascia. Fascia was incised in midline fashion and then carried through laterally. Superior aspect of the fascia was then grasped with Keysha clamps, tented off and dissected off the rectus muscles sharply. The inferior aspect was dissected off in similar fashion. Rectus muscles in midline fashion. Perineum identified. Peritoneal cavity entered bluntly. Superior and inferior dissection of the peritoneum was then done with good visualization of the bladder. At this point a Mobius skin retractor was placed; a low-transverse uterine incision was made. Infant was delivered in atraumatic fashion. Nose and mouth bulb suctioned. Cord doubly clamped and cut and infant was handed over to the waiting warmer. Cord blood and cord gas were sent. Placenta removed manually. Uterus cleared of all clot and debris and the uterine incision was then repaired in two separate layers of #0 Vicryl sutures. Pelvis copiously irrigated with normal saline and suctioned out. Attention turned to the peritoneum which was closed in a running fashion using #2-0 Vicryl on a Kash. Steri-Strips placed. The patient tolerated procedure well. She was then transferred to recovery room in stable condition.
[2018-09-30] MEDS: DOCUSATE SODIUM 100 MG CAP PO SCH (21:00)
[2018-10-01] VITALS (25 sets, daily range): BP systolic 119–160; BP diastolic 58–96
[2018-10-01 07:27] LABS: HEMATOCRIT 30.2 % (36.0-47.0); HEMOGLOBIN 10.4 g/dl (12.0-15.5); MEAN CORPUSCULAR HEMOGLOBIN 30.8 pg (27.0-33.0); MEAN CORPUSCULAR HGB CONC 34.4 g/dl (32.0-36.5); MEAN CORPUSCULAR VOLUME 89.3 fl (80.0-96.0); PLATELET COUNT, AUTOMATED 169 10^3/uL (150-450); RED BLOOD COUNT 3.38 10^6/uL (4.00-5.40); WHITE BLOOD COUNT 17.8 10^3/uL (4.0-10.0)
[2018-10-01 08:04] LABS: ALT/SGPT 13 U/L (12-78); BILIRUBIN,TOTAL 0.3 MG/DL (0.2-1.0); BLOOD UREA NITROGEN 9 MG/DL (7-18); CALCIUM LEVEL 7.8 MG/DL (8.5-10.1); CARBON DIOXIDE LEVEL 23 MEQ/L (21-32); CHLORIDE LEVEL 107 MEQ/L (98-107); CREATININE FOR GFR 0.79 MG/DL (0.55-1.30); GLOMERULAR FILTRATION RATE > 60.0 (>60); GLUCOSE, FASTING 111 MG/DL (70-100); LDH LACTATE DEHYDROGENASE 239 U/L (84-246); SODIUM LEVEL 138 MEQ/L (136-145); URIC ACID 6.7 MG/DL (2.6-6.0)
[2018-10-01] MEDS: PRENATAL VITAMINS CHEWABLE TABLET PO SCH (08:27)
[2018-10-01] MEDS: DOCUSATE SODIUM 100 MG CAP PO SCH ×2 (08:27→23:42)
[2018-10-01] MEDS: MAG Sulf (OBGYN) 20GM/500ML 20,000 MG in APPROPRIATE DILUENT 1 EA IV SCH (14:00)
[2018-10-01] MEDS ORDERED: oxyCODONE 10 MG CR TAB PO ONE (14:00)
[2018-10-01] MEDS: PERCOCET 5MG/325MG TAB PO PRN (19:37)
[2018-10-01] MEDS: IBUPROFEN 800 MG TAB PO SCH (23:42)
[2018-10-02 02:00] VITALS: BP 139/63
[2018-10-02] MEDS: IBUPROFEN 800 MG TAB PO SCH ×3 (05:51→21:31)
[2018-10-02 06:00] VITALS: BP 167/77
[2018-10-02 06:15] VITALS: BP 159/72
[2018-10-02] MEDS: PRENATAL VITAMINS CHEWABLE TABLET PO SCH (08:09)
[2018-10-02] MEDS: DOCUSATE SODIUM 100 MG CAP PO SCH ×2 (08:09→21:30)
[2018-10-02] MEDS: NIFEdipine 10 MG CAP PO SCH ×3 (08:49→22:59)
[2018-10-02 10:01] VITALS: BP 166/76
--- NOTE | 2018-10-02 10:09 | IPNPDOC ---
Text Note Date of Service The patient was seen on 10/02/18. NOTE Concerns voiced by nursing FT pitting peripheral edema and now with tachypnea, SOB while talking at rest. Reviewed status with Dr Zaragoza. O2 sat, CXR and 20mg PO lasix ordered Reordered I&O VS,Fishbone, I+O VS, Fishbone, I+O Vital Signs Date Time Temp Pulse Resp B/P (MAP) Pulse Ox O2 Delivery O2 Flow Rate FiO2 10/02/18 10:01 98.8 94 25 166/76 (106) 10/01/18 19:15 100 09/28/18 18:48 Room Air I&O- Last 24 Hours up to 6 AM 10/02/18 06:00 Intake Total 2355 ml Output Total 2225 ml Balance 130 ml Savanna Smith CNM Oct 02, 2018 10:09
--- NOTE | 2018-10-02 10:44 | REP ---
Clinical: Tachypnea. Preeclampsia . Comparison: None . Technique: PA and lateral. Findings: The mediastinum and cardiac silhouette are normal. The lung machado are clear and without acute consolidation, effusion, or pneumothorax. The skeletal structures are intact and normal. Impression: 1. No acute cardiopulmonary process. Electronically Signed by Alok Virk MD 10/02/2018 10:36 A
[2018-10-02] MEDS: PERCOCET 5MG/325MG TAB PO PRN ×2 (10:52→16:51)
[2018-10-02] MEDS ORDERED: FUROSEMIDE 20 MG TAB PO ONE (11:00)
[2018-10-02] MEDS: SIMETHICONE 80 MG CHEW TAB PO SCH ×2 (13:59→21:30)
[2018-10-02 14:02] VITALS: BP 164/76
[2018-10-02] MEDS ORDERED: SIMETHICONE 80 MG CHEW TAB PO SCH (16:00)
[2018-10-02 16:55] VITALS: BP 140/75
[2018-10-02] MEDS ORDERED: FIORICET TAB PO PRN (18:00)
[2018-10-02] MEDS ORDERED: FUROSEMIDE 40 MG/4 ML VIAL (J1940) IV ONE (18:00)
[2018-10-02 18:21] LABS: HEMATOCRIT 29.1 % (36.0-47.0); HEMOGLOBIN 9.8 g/dl (12.0-15.5); MEAN CORPUSCULAR HEMOGLOBIN 30.6 pg (27.0-33.0); MEAN CORPUSCULAR HGB CONC 33.7 g/dl (32.0-36.5); MEAN CORPUSCULAR VOLUME 90.9 fl (80.0-96.0); PLATELET COUNT, AUTOMATED 180 10^3/uL (150-450); WHITE BLOOD COUNT 11.8 10^3/uL (4.0-10.0)
[2018-10-02 18:33] LABS: INR 1.02; PROTHROMBIN TIME 13.1 SECONDS (11.8-14.0)
[2018-10-02 18:34] LABS: PARTIAL THROMBOPLASTIN TIME 30.7 SECONDS (25.0-38.4)
[2018-10-02 18:49] LABS: ALBUMIN 1.9 GM/DL (3.2-5.2); ALT/SGPT 15 U/L (12-78); BILIRUBIN,TOTAL 0.1 MG/DL (0.2-1.0); BLOOD UREA NITROGEN 15 MG/DL (7-18); CARBON DIOXIDE LEVEL 27 MEQ/L (21-32); CHLORIDE LEVEL 109 MEQ/L (98-107); CREATININE FOR GFR 0.81 MG/DL (0.55-1.30); GLOMERULAR FILTRATION RATE > 60.0 (>60); GLUCOSE, FASTING 83 MG/DL (70-100); LDH LACTATE DEHYDROGENASE 194 U/L (84-246); SODIUM LEVEL 142 MEQ/L (136-145); TOTAL PROTEIN 5.3 GM/DL (6.4-8.2); URIC ACID 6.3 MG/DL (2.6-6.0)
[2018-10-03 06:00] VITALS: BP 149/67
[2018-10-03] MEDS: IBUPROFEN 800 MG TAB PO SCH (06:05)
[2018-10-03] MEDS: NIFEdipine 10 MG CAP PO SCH (06:06)
[2018-10-03] MEDS ORDERED: NIFE30TA7 PO (08:53)
[2018-10-03] MEDS ORDERED: IBUP80TA PO (08:53)
[2018-10-03] MEDS ORDERED: PERCOCET PO (08:53)
[2018-10-03] MEDS ORDERED: ADACEL/BOOSTRIX VACCINE (DIPHTH/PERTUSS/ACELL/TETANUS)0.5ML SYR (90715) IM ONE (09:00)
[2018-10-03] MEDS ORDERED: NIFEdipine 30 MG XL TAB PO SCH (09:00)
--- NOTE | 2018-10-03 09:06 | DS.PDOC ---
Discharge Summary General Date of Admission Sep 28, 2018 at 17:11 Date of Discharge October 03, 2018 Discharge Summary PROCEDURES PERFORMED DURING STAY: Primary . ADMITTING DIAGNOSES: 1. AMA 2. Severe preeclampsia. DISCHARGE DIAGNOSES: 1. Primary section 2. Hypertension COMPLICATIONS/CHIEF COMPLAINT: Preeclamptic. HISTORY OF PRESENT ILLNESS: Admitted at 36+ weeks gestation for induction due to preeclampsia with severe features. A primary section was performed for failed induction of labor. HOSPITAL COURSE: Ms Fernandez has required antihypertensive and diuretic therapy during the period. A chest xray was performed for complaints of shortness of breath and was clear. Following the lasix treatment 10/02/18, her output was in excess of 5700ml with patient reporting feeling better. DISCHARGE MEDICATIONS: Please see below. ALLERGIES: Please see below. PHYSICAL EXAMINATION ON DISCHARGE: VITAL SIGNS: Please see below. GENERAL: Appropriate affect and care of . HEENT: WNL NECK: Supple CARDIOVASCULAR EXAMINATION: HRR, blood pressures controlled on procardia RESPIRATORY EXAMINATION: Clear and unlabored ABDOMINAL EXAMINATION: Obese. Wound clean, dry, steri strips intact and well approximated without edema or s/s infection EXTREMITIES: +3 pitting edema, improved from yesterday SKIN: Intact NEUROLOGICAL EXAMINATION: Grossly intact for her normal PSYCHIATRIC EXAMINATION: Appropriate IMAGING: Chest xray, clear PROGNOSIS: Good ACTIVITY: As tolerated, pelvic rest. Elevate extremities when able DIET: Regular DISCHARGE PLAN: Home, routine precautions. Procardia 10mg TID changed to Procardia 30xl daily for ease of use DISPOSITION: Home . DISCHARGE INSTRUCTIONS: 1. Pelvic rest 2. rest with feet elevated during the day 3. Continue procardia xl daily 4. Call with increased headache, shortness of breath or pain ITEMS TO FOLLOWUP ON ON OUTPATIENT: 1. Blood pressure next week. DISCHARGE CONDITION: Stable Vital Signs/I&Os Vital Signs Date Time Temp Pulse Resp B/P (MAP) Pulse Ox O2 Delivery O2 Flow Rate FiO2 10/03/18 06:06 149/67 10/03/18 06:00 100.0 89 18 10/02/18 16:55 100 09/28/18 18:48 Room Air I&O- Last 24 Hours up to 6 AM 10/03/18 06:00 Intake Total 1250 ml Output Total 6300 ml Balance -5050 ml Laboratory Data Labs 24H Laboratory Tests 2 10/02/18 17:59: Nucleated Red Blood Cells % (auto) 0.0, Prothrombin Time 13.1, Prothromb Time International Ratio 1.02, Activated Partial Thromboplast Time 30.7, Fibrinogen 588H, Anion Gap 6L, Glomerular Filtration Rate > 60.0, Blood Urea Nitrogen 15#, Creatinine 0.81, Sodium Level 142, Potassium Level 4.0, Chloride Level 109H, Carbon Dioxide Level 27, Calcium Level 8.0L, Aspartate Amino Transf (AST/SGOT) 23, Alanine Aminotransferase (ALT/SGPT) 15, Lactate Dehydrogenase 194, Alkaline Phosphatase 102, Total Bilirubin 0.1#L, Uric Acid 6.3H, Total Protein 5.3L, Albumin 1.9L, Albumin/Globulin Ratio 0.56L CBC/BMP Laboratory Tests 10/02/18 17:59 Red Blood Count 3.20 L, Mean Corpuscular Volume 90.9, Mean Corpuscular Hemoglobin 30.6, Mean Corpuscular Hemoglobin Concent 33.7, Red Cell Distribution Width 14.2, Calcium Level 8.0 L, Aspartate Amino Transf (AST/SGOT) 23, Alanine Aminotransferase (ALT/SGPT) 15, Lactate Dehydrogenase 194, Alkaline Phosphatase 102, Total Bilirubin 0.1 #L, Uric Acid 6.3 H, Total Protein 5.3 L, Albumin 1.9 L Discharge Medications Scheduled Cholecalciferol (Vitamin D3) (Vitamin D3) 1,000 Unit Capsule, 1,000 UNIT PO DAILY, (Reported) Ibuprofen (Ibuprofen) 800 Mg Tablet, 800 MG PO Q8H Nifedipine (Nifedipine ER) 30 Mg Tab.er.24, 30 MG PO QAM Xvn330/Iron Fum/Folic/Docusate (Se-Justa 19 Tablet) 1 Tab Tab, 1 TAB PO DAILY, (Reported) Ranitidine HCl (Ranitidine HCl) 150 Mg Cap, 1 CAP PO BID Scheduled PRN Oxycodone/Acetaminophen (Oxycodone-Acetaminophen 5-325) 1 Each Tablet, 1-2 TAB PO Q4-6HP PRN for MILD PAIN (PS 1-4) Allergies Coded Allergies: SEAFOOD (Verified Allergy, Severe, HIVES, DIFFICULTY BREATHING, 08/25/18) DYE'S (COLOR'S NOT IODINATED) (Verified Allergy, Intermediate, HIVES/PRURITIS RED & BLUE DYE, 08/25/18) amitriptyline (Verified Allergy, Intermediate, HIVES... and see comments, 09/28/18) pt states she overdosed on amitriptyline and stopped breathing atenolol (Verified Allergy, Intermediate, hives, 09/28/18) blue dye (Verified Allergy, Intermediate, HIVES/PRURITIS, 08/25/18) cyclobenzaprine (Verified Allergy, Intermediate, hives, 09/28/18) nortriptyline (Verified Allergy, Intermediate, upset stomach, hives, 09/28/18) red (food color) (Verified Allergy, Intermediate, HIVES / PRURITIS WITH INGESTED DYE, 08/25/18) red dye (Verified Allergy, Intermediate, HIVES/PRURITIS, 08/25/18) risperidone (Verified Allergy, Intermediate, hives, 09/28/18) tramadol (Verified Allergy, Intermediate, hives, 09/28/18) ziprasidone (Verified Adverse Reaction, Intermediate, paranoid, 09/28/18) Savanna Smith CNM Oct 03, 2018 09:06
[2018-10-03] MEDS: PRENATAL VITAMINS CHEWABLE TABLET PO SCH (09:31)
[2018-10-03] MEDS: SIMETHICONE 80 MG CHEW TAB PO SCH (09:32)
[2018-10-03] MEDS: DOCUSATE SODIUM 100 MG CAP PO SCH (09:32)
[2018-10-03 10:13] VITALS: BP 150/72
[2018-10-03] MEDS: PERCOCET 5MG/325MG TAB PO PRN (12:17)
== END 2018-10-03 14:15 | disposition home or self-care (01) | DRG 540 ==
LOC: M LDO 16:00 → M LDI 17:11 → M OBS 10-01 19:28
PROVIDERS: ADMIT Advanced Practice Midwife; ATTEND Obstetrics & Gynecology
PROC: 3E0P7GC Introduction of Other Therapeutic Substance into Female Reproductive, Via Natural or Artificial Opening (ICD-10-PCS; 2018-09-28)
PROC: 10D00Z1 Extraction of Products of Conception, Low, Open Approach (ICD-10-PCS; principal; 2018-09-30 16:42)
DX: O14.14 Severe pre-eclampsia complicating childbirth (principal); Z3A.36 36 weeks gestation of pregnancy; O61.0 Failed medical induction of labor; O69.81X0 Labor and delivery complicated by cord around neck, without compression, not applicable or unspecified; Z37.0 Single live birth

== ENCOUNTER → 2018-10-11 | Outpatient (REF) | payer OTHER ==
[~2018-10-11] MED LIST changes: +IBUP80TA PO; +NIFE30TA7 PO; +PERCOCET PO; +PRENTAB9 PO
[2018-10-11 14:55] LABS: APPEARANCE, URINE HAZY (CLEAR); BACTERIA, URINE AUTO 1+ (NEGATIVE); BILIRUBIN, URINE AUTO NEGATIVE (NEGATIVE); BLOOD, URINE BLOOD 3+ (NEGATIVE); COLOR, URINE YELLOW (YELLOW); GLUCOSE, URINE (UA) AUTO NEGATIVE (NEGATIVE); KETONE, URINE AUTO NEGATIVE (NEGATIVE); LEUKOCYTE ESTERASE, URINE AUTO 2+ (NEGATIVE); MUCUS, URINE SMALL (NEGATIVE); NITRITE, URINE AUTO NEGATIVE (NEGATIVE); PROTEIN, URINE AUTO NEGATIVE (NEGATIVE); RBC, URINE AUTO 79 /HPF (0-3); SPECIFIC GRAVITY URINE AUTO 1.014 (1.002-1.035); SQUAMOUS EPITHELIAL CELL UR AU 1 /HPF (0-6); UROBILINOGEN, URINE AUTO 0.2 mg/dL (0.0-2.0); WBC, URINE AUTO 11 /HPF (0-3)
== END ==
LOC: M LAB REF 14:24
PROVIDERS: ATTEND Nurse Practitioner Family
DX: N39.0 Urinary tract infection, site not specified (principal)

== ENCOUNTER 2018-10-12 23:15 | Emergency (ER) | payer OTHER ==
[~2018-10-12] VITALS: Ht 167.6 cm; Wt 131.8 kg
[2018-10-13 00:39] LABS: ALBUMIN 2.6 GM/DL (3.2-5.2); ALT/SGPT 19 U/L (12-78); BILIRUBIN,DIRECT < 0.1 MG/DL (0.0-0.2); BILIRUBIN,TOTAL 0.1 MG/DL (0.2-1.0); BLOOD UREA NITROGEN 20 MG/DL (7-18); CALCIUM LEVEL 8.6 MG/DL (8.5-10.1); CARBON DIOXIDE LEVEL 29 MEQ/L (21-32); CHLORIDE LEVEL 108 MEQ/L (98-107); CREATININE FOR GFR 1.04 MG/DL (0.55-1.30); GLOMERULAR FILTRATION RATE > 60.0 (>60); GLUCOSE, FASTING 102 MG/DL (70-100); LIPASE 199 U/L (73-393); SODIUM LEVEL 141 MEQ/L (136-145); TOTAL PROTEIN 6.4 GM/DL (6.4-8.2)
[2018-10-13 00:40] LABS: BASO # 0.1 10^3/uL (0.0-0.2); BASO % 1.2 % (0.0-1.0); EOS # 0.4 10^3/uL (0.0-0.50); EOS % 4.7 % (0.0-3.0); HEMATOCRIT 33.2 % (36.0-47.0); LYMPH # 2.2 10^3/uL (1.5-4.5); LYMPH % 25.8 % (24.0-44.0); MEAN CORPUSCULAR HEMOGLOBIN 30.7 pg (27.0-33.0); MEAN CORPUSCULAR HGB CONC 33.1 g/dl (32.0-36.5); MEAN CORPUSCULAR VOLUME 92.7 fl (80.0-96.0); MONO # 0.8 10^3/uL (0.0-0.8); MONO % 9.4 % (0.0-5.0); NEUTROPHILS % 58.2 % (36.0-66.0); PLATELET COUNT, AUTOMATED 339 10^3/uL (150-450); RED BLOOD COUNT 3.58 10^6/uL (4.00-5.40); WHITE BLOOD COUNT 8.5 10^3/uL (4.0-10.0)
[2018-10-13] MEDS ORDERED: MORPHINE 4 MG/ML 1ML VIAL/SYRINGE (J2270) IV ONE (01:00)
[2018-10-13] MEDS ORDERED: NS 1,000 ML IV ONE (01:00)
[2018-10-13] MEDS ORDERED: ISOVUE-370 76% 100ML VIAL (Q9967) As Ordered ONE (01:09)
[2018-10-13 03:34] VITALS: BP 136/69
--- NOTE | 2018-10-13 04:01 | REPVR ---
EXAM: CT Abdomen and Pelvis With Contrast EXAM DATE/TIME: 10/13/18 (1:19am) CLINICAL HISTORY: 38 year old female with post-operative pain. Prior surgery. Surgery date: <1 month. Surgery type: . TECHNIQUE: Imaging protocol: Axial computed tomography images of the abdomen and pelvis with intravenous contrast. Coronal and sagittal reformatted images were created and reviewed. Radiation optimization: All CT scans at this facility use at least one of these dose optimization techniques: automated exposure control; mA and/or kV adjustment per patient size (includes targeted exams where dose is matched to clinical indication); or iterative reconstruction. Contrast material: Isovue 370 Contrast volume: 100 ml Contrast route: IV COMPARISON: CT ABDOMEN PELVIS of 02/26/17 FINDINGS: Liver: Normal. No solid mass. Gallbladder and bile ducts: Previous cholecystectomy. No ductal dilatation. Pancreas: Normal. No ductal dilatation. Spleen: Normal. No splenomegaly. Adrenals: Normal. No mass. Kidneys and ureters: Normal. No hydronephrosis. Stomach and bowel: Normal. No bowel obstruction. No mucosal thickening. Appendix: No evidence of appendicitis. Intraperitoneal space: Normal. No free air. No significant fluid collection. Vasculature: Normal. No abdominal aortic aneurysm. Lymph nodes: Normal. No enlarged lymph nodes. Bladder: Unremarkable as visualized. Reproductive: Heterogeneous uterine texture (S/P recent ). Bones/joints: No acute fracture. No dislocation. Soft tissues: Ovoid fluid collection (measuring 17.0 x 3.5 x 6.7 cm in greatest dimensions) in the SQ fat, overlying the lower abdomen and upper pelvis. It is approx. 4-6 cm deep to skin surface (CT density = 10 HU). IMPRESSION: Previous cholecystecto my. S/P recent . Ovoid-shaped post-operative fluid collection in the SQ fat overlying the lower abdomen and pelvis --- perhaps post-operative seroma; perhaps hematoma. Cannot exclude infected fluid collection (abscess). The collection is approx. 4-6 cm deep to the skin surface No abnormal air collections. Percutaneous fluid aspiration / drainage can be performed, with ultrasound or CT guidance, as felt warranted. Electronically signed by: Penny Enciso On 10/13/2018 04:01:04 AM
== END 2018-10-13 04:42 | disposition home or self-care (01) ==
LOC: M ED 23:15
DX: L76.34 Postprocedural seroma of skin and subcutaneous tissue following other procedure (principal); I10 Essential (primary) hypertension; K21.9 Gastro-esophageal reflux disease without esophagitis; F60.3 Borderline personality disorder; E66.9 Obesity, unspecified; Z79.82 Long term (current) use of aspirin; Z79.899 Other long term (current) drug therapy; Z88.1 Allergy status to other antibiotic agents; Z88.8 Allergy status to other drugs, medicaments and biological substances; Z88.5 Allergy status to narcotic agent; Z91.89 Other specified personal risk factors, not elsewhere classified; Z91.013 Allergy to seafood; Z91.02 Food additives allergy status
CPT/HCPCS: 74177; 80048; 80076; 83605; 83690; 85025; 96374; 99284; J2270; Q9967

== ENCOUNTER 2018-10-18 20:01 | Emergency (ER) | payer OTHER ==
[~2018-10-18] VITALS: Ht 167.6 cm; Wt 124.0 kg
[~2018-10-18 20:01] MED LIST changes: +**NOTE PATIENT COMMENT** MISC XX ONE
[2018-10-18] MEDS ORDERED: MACR100C43 PO (20:07)
[2018-10-18] MEDS ORDERED: NS 1,000 ML IV ONE (21:00)
[2018-10-18] MEDS ORDERED: KETOROLAC 30 MG/ML VIAL (J1885) IV ONE (21:00)
[2018-10-18 21:18] LABS: BASO # 0.1 10^3/uL (0.0-0.2); BASO % 0.7 % (0.0-1.0); EOS # 0.4 10^3/uL (0.0-0.50); EOS % 4.8 % (0.0-3.0); HEMATOCRIT 33.6 % (36.0-47.0); HEMOGLOBIN 11.3 g/dl (12.0-15.5); LYMPH # 2.6 10^3/uL (1.5-4.5); LYMPH % 29.5 % (24.0-44.0); MEAN CORPUSCULAR HEMOGLOBIN 30.5 pg (27.0-33.0); MEAN CORPUSCULAR HGB CONC 33.6 g/dl (32.0-36.5); MEAN CORPUSCULAR VOLUME 90.8 fl (80.0-96.0); MONO # 0.6 10^3/uL (0.0-0.8); NEUTROPHILS # 5.1 10^3/uL (1.8-7.7); NEUTROPHILS % 57.7 % (36.0-66.0); PLATELET COUNT, AUTOMATED 401 10^3/uL (150-450); WHITE BLOOD COUNT 8.8 10^3/uL (4.0-10.0)
[2018-10-18 21:42] LABS: BLOOD UREA NITROGEN 18 MG/DL (7-18); CALCIUM LEVEL 8.6 MG/DL (8.5-10.1); CARBON DIOXIDE LEVEL 29 MEQ/L (21-32); CHLORIDE LEVEL 104 MEQ/L (98-107); CREATININE FOR GFR 1.07 MG/DL (0.55-1.30); GLOMERULAR FILTRATION RATE > 60.0 (>60); GLUCOSE, FASTING 88 MG/DL (70-100); POTASSIUM SERUM 4.2 MEQ/L (3.5-5.1); SODIUM LEVEL 140 MEQ/L (136-145)
--- NOTE | 2018-10-18 22:44 | REPVR ---
EXAM: US Retroperitoneal Limited, Kidneys EXAM DATE/TIME: 10/18/2018 10:01 PM CLINICAL HISTORY: 38 years old, female; Abdominal pain; Flank; Right; Additional info: Seroma 17x3.5x6.7cm, rllq pain, R CVA pain TECHNIQUE: Imaging protocol: Real-time ultrasound of the retroperitoneum with image documentation. Examination was focused on the kidneys. COMPARISON: CT ABD/PEL W/IV CONTRAST ONLY 10/13/2018 1:18 AM FINDINGS: Right kidney: Measures 11.7 x 5.7 x 4.8 cm. No hydronephrosis. Left kidney: Measures 11.7 x 5.2 x 5.3 cm. No hydronephrosis. IMPRESSION: No acute findings as visualized. Electronically signed by: Maurisio Camargo On 10/18/2018 22:43:59 PM
--- NOTE | 2018-10-18 22:52 | REPVR ---
EXAM: US Pelvis Complete, Transabdominal and US Pelvis, Transvaginal EXAM DATE/TIME: 10/18/2018 10:01 PM CLINICAL HISTORY: 38 years old, female; Pelvic pain; Prior surgery; Surgery date: <1 month; Surgery type: ; Additional info: Seroma 17x3.5x6.7cm, rllq pain TECHNIQUE: Imaging protocol: Real-time transabdominal and transvaginal pelvic ultrasound (complete) with image documentation. Transvaginal imaging was used for better evaluation of the endometrium and adnexa. COMPARISON: US PELVIC NON-OB COMPLETE 09/10/2013 1:09 PM FINDINGS: Uterus/cervix: The uterus measures 11.2 x 6.0 x 6.5 cm. Endometrial thickness is 5.3 mm. There is a small amount of fluid within the endometrial canal. Right adnexa: Right ovary measures 2.2 x 1.4 x 2.5 cm and demonstrates dopplerable blood flow. Left adnexa: Left ovary measures 2.8 x 1.6 x 2.2 cm and demonstrates dopplerable blood flow. Free fluid: No sizable amount of free fluid identified. Bladder: Underdistended and therefore cannot be adequately assessed. Soft tissues: As demonstrated on prior CT there is a large hypoechoic collection with internal septations seen in the lower anterior abdominal wall. This measures approximately 17.9 x 4.3 x 6.3 cm. IMPRESSION: No significant change in size of previously identified lower anterior abdominal wall collection. This may represent a seroma, however, hematoma or abscess cannot be entirely excluded. Uterus appears slightly enlarged with small amount of endometrial fluid. Electronically signed by: Maurisio Camargo On 10/18/2018 22:52:26 PM
[2018-10-18] MEDS ORDERED: ZOFR4TAB16 PO (23:03)
[2018-10-18] MEDS ORDERED: LIDO1PAD13 TOP (23:03)
[2018-10-18 23:10] VITALS: BP 144/83
[2018-10-18] MEDS ORDERED: LIDOCAINE 5% (LIDODERM) PATCH TD ONE (23:15)
== END 2018-10-18 23:30 | disposition home or self-care (01) ==
LOC: M ED 20:01
DX: O99.73 Diseases of the skin and subcutaneous tissue complicating the puerperium (principal); L76.34 Postprocedural seroma of skin and subcutaneous tissue following other procedure; Z79.899 Other long term (current) drug therapy; Z79.82 Long term (current) use of aspirin; Z88.5 Allergy status to narcotic agent; Z88.8 Allergy status to other drugs, medicaments and biological substances; Z91.018 Allergy to other foods
CPT/HCPCS: 76775; 76830; 76856; 80047; 80048; 81001; 85025; 87086; 93976; 96374; 99284; J1885

== ENCOUNTER → 2018-10-27 | Outpatient (CLI) | payer OTHER ==
[~2018-10-27] MED LIST changes: -**NOTE PATIENT COMMENT** MISC XX ONE; +LACT10SO29 PO; +LIDO1PAD13 TOP; +LIDOCAINE 1% MDV 20ML VIAL As Ordered ONE; +MACR100C43 PO; +ZOFR4TAB16 PO
[2018-10-27 13:45] VITALS: BP 166/90
--- NOTE | 2018-10-27 23:36 | REP ---
ULTRASOUND-GUIDED ABDOMINAL SEROMA DRAIN The procedure was performed under the direct supervision of Dr. gomez. The patient has a history of a 17.9 x 4.3 x 6.3 cm large hypoechoic collection, with internal septations, seen in the lower anterior abdominal wall on a previous ultrasound dated 10/18/2018. The risks and benefits of the procedure were explained to the patient and informed consent was obtained. The abdominal seroma was localized using ultrasound guidance. The skin was prepped and draped in a sterile fashion. 1% lidocaine was used as a local anesthetic. Using ultrasound guidance and trocar technique and 8-Telugu Skater APDL catheter was inserted using trocar technique. 50 ml of low viscosity red colored fluid was withdrawn and sent to the lab for analysis. The catheter was then removed. The patient tolerated the procedure well and there were no immediate complications. After the appropriate amount of monitored convalescence the patient was discharged from the department. Reviewed by CHRISTOFER Fernandez 10/27/2018 04:43 P Electronically Signed by Maikel Gomez MD 10/27/2018 11:27 P
== END ==
LOC: M IRPRO 12:33
DX: L76.34 Postprocedural seroma of skin and subcutaneous tissue following other procedure (principal)

== ENCOUNTER 2018-10-28 20:05 | Emergency (ER) | payer OTHER ==
[~2018-10-28] VITALS: Ht 167.6 cm; Wt 125.1 kg
[~2018-10-28 20:05] MED LIST changes: -LACT10SO29 PO; -LIDOCAINE 1% MDV 20ML VIAL As Ordered ONE; +NIFE1TAB52 PO; -NIFE30TA7 PO; +ZONI100C17 PO; -ZONI100C2 PO
[2018-10-28 20:06] VITALS: BP 141/72
[2018-10-28] MEDS ORDERED: NS 1,000 ML IV ONE (21:15)
[2018-10-28] MEDS ORDERED: KETOROLAC 30 MG/ML VIAL (J1885) IV ONE (21:15)
[2018-10-28 21:28] LABS: BASO # 0.1 10^3/uL (0.0-0.2); BASO % 0.7 % (0.0-1.0); EOS # 0.5 10^3/uL (0.0-0.50); EOS % 5.6 % (0.0-3.0); HEMATOCRIT 34.9 % (36.0-47.0); HEMOGLOBIN 11.5 g/dl (12.0-15.5); LYMPH # 2.5 10^3/uL (1.5-4.5); MEAN CORPUSCULAR HEMOGLOBIN 29.9 pg (27.0-33.0); MEAN CORPUSCULAR VOLUME 90.6 fl (80.0-96.0); MONO # 0.7 10^3/uL (0.0-0.8); MONO % 7.4 % (0.0-5.0); NEUTROPHILS # 5.4 10^3/uL (1.8-7.7); NEUTROPHILS % 58.9 % (36.0-66.0); PLATELET COUNT, AUTOMATED 270 10^3/uL (150-450); RED BLOOD COUNT 3.85 10^6/uL (4.00-5.40); WHITE BLOOD COUNT 9.1 10^3/uL (4.0-10.0)
[2018-10-28 21:51] LABS: ALBUMIN 3.1 GM/DL (3.2-5.2); ALT/SGPT 17 U/L (12-78); BILIRUBIN,TOTAL 0.2 MG/DL (0.2-1.0); BLOOD UREA NITROGEN 17 MG/DL (7-18); C REACTIVE PROTEIN QUANTITATIV 1.42 MG/DL (0.00-0.30); CALCIUM LEVEL 8.8 MG/DL (8.5-10.1); CARBON DIOXIDE LEVEL 28 MEQ/L (21-32); CHLORIDE LEVEL 109 MEQ/L (98-107); CREATININE FOR GFR 1.05 MG/DL (0.55-1.30); GLOMERULAR FILTRATION RATE > 60.0 (>60); GLUCOSE, FASTING 91 MG/DL (70-100); LIPASE 144 U/L (73-393); SODIUM LEVEL 140 MEQ/L (136-145)
[2018-10-28 21:54] LABS: ERYTHROCYTE SEDIMENTATION RATE 65 mm/hr (0-20)
[2018-10-28] MEDS ORDERED: ISOVUE-370 76% 100ML VIAL (Q9967) As Ordered ONE (22:14)
--- NOTE | 2018-10-28 23:30 | REPVR ---
EXAM: CT Abdomen and Pelvis With Contrast EXAM DATE/TIME: 10/28/2018 10:33 PM CLINICAL HISTORY: 38 years old, female; Abdominal pain; Generalized; Prior surgery; Additional info: Diffuse abd pain, yesterday seroma aspiration TECHNIQUE: Imaging protocol: Computed tomography of the abdomen and pelvis with intravenous contrast. Radiation optimization: All CT scans at this facility use at least one of these dose optimization techniques: automated exposure control; mA and/or kV adjustment per patient size (includes targeted exams where dose is matched to clinical indication); or iterative reconstruction. Contrast material: ISOVUE 370; Contrast volume: 100 ml; Contrast route: IV; COMPARISON: CT ABD/PEL W/IV CONTRAST ONLY 10/13/2018 1:18 AM FINDINGS: Lungs: Clear lung bases. Liver: Normal-appearing liver. Gallbladder and bile ducts: Normal common bile duct. Patient is post cholecystectomy. Pancreas: Normal pancreas. Spleen: Normal appearing spleen. Adrenals: Normal adrenal glands. Kidneys and ureters: Normal kidneys. Stomach and bowel: Normal. No obstruction. No mucosal thickening. Appendix: The cecum is in the right pelvis and the appendix appears within the range of normal. Intraperitoneal space: There is no evidence of pneumoperitoneum. There is no evidence of pneumoperitoneum. Vasculature: There is opacification of the aorta which appears normal in size. Lymph nodes: Normal. No enlarged lymph nodes. Bladder: Normal urinary bladder. Reproductive: Normal appearing uterus. Normal appearing ovaries. Bones/joints: There is no evidence of bony abnormality. Soft tissues: There is an oval seroma abutting the lower aspect of the rectus muscles within subcutaneous layer measuring 12 CM in length by 2.9 cm thickness. This has significantly decreased since 10/13/2018. There is some anterior skin thickening and mild subcutaneous edema anterior abdomen. There is marked thickening of the rectus muscles and anterior abdominal wall and this has mildly decreased since 10/13/2018. This is probably swelling within the abdominal muscular groups. Inflammation or infection not excluded but reassuring that this has decreased. There are 2 bubbles of air within the seroma possibly secondary to previous aspiration. Infection with gas-forming organism not excluded continued surveillance would be important. IMPRESSION: 1. There is skin thickening and mild swelling of the anterior abdominal wall. 2. Decrease in size of the deep seroma. There are 3 bubbles of air within the seroma which may be secondary to recent drainage. Infection with gas-forming organism not excluded and continued surveillance would be important. 3. There is marked thickening of the rectus abdominous muscles and anterior abdominal wall. This is mildly decreased since 10/13/2018 examination. Electronically signed by: Sung Torrez On 10/28/2018 23:30:25 PM
[2018-10-28] MEDS ORDERED: LACT10SO29 PO (23:57)
[2018-10-29] MEDS ORDERED: LACTULOSE 20 GM/30 ML SYRUP UD PO ONE
--- NOTE | 2018-11-01 07:29 | ED PDOC ---
Post-Departure Follow-Up dr tomlinson faxed formal report of ct abd/p for fu Carissa Liao MD Nov 01, 2018 07:29
== END 2018-10-29 00:11 | disposition home or self-care (01) ==
LOC: M ED 20:05
DX: K59.00 Constipation, unspecified (principal); L76.34 Postprocedural seroma of skin and subcutaneous tissue following other procedure; I10 Essential (primary) hypertension; R51 Headache; Z86.73 Personal history of transient ischemic attack (TIA), and cerebral infarction without residual deficits; J45.909 Unspecified asthma, uncomplicated; Z86.19 Personal history of other infectious and parasitic diseases; Z79.82 Long term (current) use of aspirin; Z79.899 Other long term (current) drug therapy; Z91.02 Food additives allergy status; Z91.013 Allergy to seafood; Z88.8 Allergy status to other drugs, medicaments and biological substances
CPT/HCPCS: 74177; 80053; 83690; 85025; 85652; 86140; 96374; 99284; J1885; Q9967

== ENCOUNTER 2018-11-02 16:54 | Emergency (ER) | payer OTHER ==
[~2018-11-02] VITALS: Ht 167.6 cm; Wt 125.0 kg
[~2018-11-02 16:54] MED LIST changes: +LACT10SO29 PO; -NIFE1TAB52 PO; +NIFE30TA7 PO; -ZONI100C17 PO; +ZONI100C2 PO
[2018-11-02] MEDS ORDERED: EXCETAB33 PO (17:01)
[2018-11-02] MEDS ORDERED: ACETAMINOPHEN 325 MG TAB PO ONE (18:30)
[2018-11-02] MEDS ORDERED: ONDANSETRON 4 MG ORAL DISINTEGRATING TAB (Q0162 PER 1MG) PO ONE (18:30)
[2018-11-02 18:56] LABS: BASO % 0.4 % (0.0-1.0); EOS # 0.1 10^3/uL (0.0-0.5); EOS % 1.8 % (0.0-3.0); HEMATOCRIT 35.3 % (36.0-47.0); HEMOGLOBIN 11.5 g/dl (12.0-15.5); LYMPH # 1.1 10^3/uL (1.5-5.0); LYMPH % 13.7 % (24.0-44.0); MEAN CORPUSCULAR HEMOGLOBIN 28.2 pg (27.0-33.0); MEAN CORPUSCULAR HGB CONC 32.6 g/dl (32.0-36.5); MEAN CORPUSCULAR VOLUME 86.5 fl (80.0-96.0); MONO # 0.4 10^3/uL (0.0-0.8); MONO % 4.9 % (0.0-5.0); NEUTROPHILS # 6.2 10^3/uL (1.5-8.5); NEUTROPHILS % 78.8 % (36.0-66.0); PLATELET COUNT, AUTOMATED 257 10^3/uL (150-450); RED BLOOD COUNT 4.08 10^6/uL (4.00-5.40); WHITE BLOOD COUNT 7.8 10^3/uL (4.0-10.0)
--- NOTE | 2018-11-02 19:01 | REP ---
Clinical: Lower chest and abdominal pain . Comparison: 10/02/2018 . Technique: PA and lateral. Findings: The mediastinum and cardiac silhouette are normal. The lung machado are clear and without acute consolidation, effusion, or pneumothorax. The skeletal structures are intact and normal. Impression: 1. No acute cardiopulmonary process. Electronically Signed by Alok Virk MD 11/02/2018 06:52 P
--- NOTE | 2018-11-02 19:02 | REP ---
Clinical: Abdominal pain. Technique: Two supine views of the abdomen and pelvis. Findings: Bowel gas pattern is nonspecific and without obstruction or obvious perforation. Prior cholecystectomy. No organomegaly. No abnormal calcifications. Skeletal structures are intact. Impression: Nonspecific abdominal radiographs. Prior cholecystectomy. Electronically Signed by Alok Virk MD 11/02/2018 06:54 P
[2018-11-02 19:20] LABS: BLOOD UREA NITROGEN 12 MG/DL (7-18); CALCIUM LEVEL 8.7 MG/DL (8.5-10.1); CARBON DIOXIDE LEVEL 27 MEQ/L (21-32); CHLORIDE LEVEL 106 MEQ/L (98-107); CREATININE FOR GFR 1.08 MG/DL (0.55-1.30); GLOMERULAR FILTRATION RATE > 60.0 (>60); GLUCOSE, FASTING 93 MG/DL (70-100); SODIUM LEVEL 139 MEQ/L (136-145)
[2018-11-02] MEDS ORDERED: PENI500T PO (20:38)
[2018-11-02 20:42] VITALS: BP 141/74
== END 2018-11-02 20:52 | disposition home or self-care (01) ==
LOC: M ED 16:54
DX: J02.0 Streptococcal pharyngitis (principal); R10.9 Unspecified abdominal pain; R50.9 Fever, unspecified; R07.0 Pain in throat; I10 Essential (primary) hypertension; J44.9 Chronic obstructive pulmonary disease, unspecified; K44.9 Diaphragmatic hernia without obstruction or gangrene; G43.909 Migraine, unspecified, not intractable, without status migrainosus; R56.9 Unspecified convulsions; M54.2 Cervicalgia; F43.10 Post-traumatic stress disorder, unspecified; F41.9 Anxiety disorder, unspecified; Z91.02 Food additives allergy status; Z88.8 Allergy status to other drugs, medicaments and biological substances; Z91.013 Allergy to seafood
CPT/HCPCS: 71046; 74018; 80048; 85025; 87880; 99284; Q0162

== ENCOUNTER 2018-11-30 19:13 | Emergency (ER) | payer OTHER ==
[~2018-11-30] VITALS: Ht 167.6 cm; Wt 120.9 kg
[~2018-11-30 19:13] MED LIST changes: +EXCETAB33 PO; +PENI500T PO
[2018-11-30 23:00] VITALS: BP 149/78
--- NOTE | 2018-12-01 08:02 | REP ---
Right long finger series: Four views. History: Trauma. Findings: Four views of the right long finger demonstrate soft tissue swelling about the PIP joint. No fractures seen. There is a small subcortical cyst in the distal end of the proximal phalanx. Mild soft tissue swelling is also noted at the DIP joint. No opaque foreign body is seen. Impression: No acute bony abnormality. Electronically Signed by Abdirahman Ortiz MD 12/01/2018 07:54 A
== END 2018-11-30 23:03 | disposition home or self-care (01) ==
LOC: M ED 19:13
DX: S63.612A Unspecified sprain of right middle finger, initial encounter (principal); W23.1XXA Caught, crushed, jammed, or pinched between stationary objects, initial encounter; Y92.89 Other specified places as the place of occurrence of the external cause; G43.909 Migraine, unspecified, not intractable, without status migrainosus; I10 Essential (primary) hypertension; E55.9 Vitamin D deficiency, unspecified; Z91.013 Allergy to seafood; Z91.048 Other nonmedicinal substance allergy status; Z88.8 Allergy status to other drugs, medicaments and biological substances; Z79.899 Other long term (current) drug therapy; Z79.82 Long term (current) use of aspirin

== ENCOUNTER → 2019-02-15 | Outpatient (CLI) | payer OTHER ==
[~2019-02-15] MED LIST changes: +DOCU100C16 PO; +PREG75CA2 PO; +RANI150T14 PO; +VITA-122 PO
--- NOTE | 2019-02-15 17:44 | REP ---
ABDOMEN: Two AP KUB films of the abdomen and pelvis was performed. Bowel gas pattern is normal. There is mild scattered fecal material throughout the colon. No dilated small bowel loops are seen. Metallic clips are seen in the right upper quadrant. Presumably status-post cholecystectomy. No abnormal calcifications are seen. IMPRESSION: Unremarkable exam. Electronically Signed by Maikel Gomez MD 02/16/2019 03:57 P
== END ==
LOC: M RAD 15:38
PROVIDERS: ATTEND Family Medicine
DX: R10.9 Unspecified abdominal pain (principal)

== ENCOUNTER 2019-02-16 23:14 | Emergency (ER) | payer OTHER ==
[~2019-02-16] VITALS: Ht 167.6 cm; Wt 125.0 kg
[~2019-02-16 23:14] MED LIST changes: -DOCU100C16 PO; -PREG75CA2 PO; -RANI150T14 PO; -VITA-122 PO
[2019-02-16] MEDS ORDERED: PREG75CA2 PO (23:24)
[2019-02-16] MEDS ORDERED: VITA-122 PO (23:24)
[2019-02-16] MEDS ORDERED: DOCU100C16 PO (23:24)
[2019-02-16] MEDS ORDERED: RANI150T14 PO (23:24)
[2019-02-16] MEDS ORDERED: LORazepam 2 MG/ML VIAL (J2060) IV STA (23:54)
[2019-02-17 00:49] LABS: BASO # 0.1 10^3/uL (0.0-0.2); BASO % 0.7 % (0.0-1.0); EOS # 0.5 10^3/uL (0.0-0.5); EOS % 5.4 % (0.0-3.0); HEMATOCRIT 39.6 % (36.0-47.0); HEMOGLOBIN 12.9 g/dl (12.0-15.5); LYMPH # 2.9 10^3/uL (1.5-5.0); MEAN CORPUSCULAR HEMOGLOBIN 27.6 pg (27.0-33.0); MEAN CORPUSCULAR HGB CONC 32.6 g/dl (32.0-36.5); MEAN CORPUSCULAR VOLUME 84.8 fl (80.0-96.0); MONO # 0.7 10^3/uL (0.0-0.8); MONO % 7.9 % (0.0-5.0); NEUTROPHILS # 4.8 10^3/uL (1.5-8.5); NEUTROPHILS % 53.7 % (36.0-66.0); PLATELET COUNT, AUTOMATED 244 10^3/uL (150-450); RED BLOOD COUNT 4.67 10^6/uL (4.00-5.40); WHITE BLOOD COUNT 8.9 10^3/uL (4.0-10.0)
[2019-02-17 01:42] LABS: HCG, SERUM QUALITATIVE NEGATIVE (NEGATIVE)
[2019-02-17 01:48] LABS: ALBUMIN 3.2 GM/DL (3.2-5.2); ALT/SGPT 22 U/L (12-78); BILIRUBIN,DIRECT < 0.1 MG/DL (0.0-0.2); BILIRUBIN,TOTAL 0.2 MG/DL (0.2-1.0); LIPASE 102 U/L (73-393); TOTAL PROTEIN 6.8 GM/DL (6.4-8.2)
--- NOTE | 2019-02-17 01:49 | REPVR ---
PROCEDURE INFORMATION: Exam: US Pelvis Complete, Transabdominal Exam date and time: 02/17/2019 1:14 AM Age: 38 years old Clinical indication: Pelvic pain; Additional info: Right pelvic pain R/O cyst vs torsion TECHNIQUE: Imaging protocol: Real-time transabdominal pelvic ultrasound with image documentation. Complete exam. COMPARISON: US PELVIC NON-OB COMPLETE 10/18/2018 9:33 PM FINDINGS: Uterus/cervix: Uterus is normal. Endometrial stripe is normal measuring 12 mm. Right adnexa: Two simple cysts in the right ovary measuring 1.4 and 1.1 cm. Right ovary is otherwise unremarkable with normal blood flow. Left adnexa: Ovary is normal. No mass. Normal blood flow. Free fluid: None. Bladder: Normal. IMPRESSION: 1. Small simple cysts in the right ovary. 2. Otherwise unremarkable. No evidence of torsion or mass. Electronically signed by: Joseph Fonseca On 02/17/2019 01:49:27 AM
[2019-02-17 02:03] VITALS: BP 131/80
== END 2019-02-17 02:04 | disposition home or self-care (01) ==
LOC: M ED 23:14
DX: N83.201 Unspecified ovarian cyst, right side (principal); I10 Essential (primary) hypertension; F43.10 Post-traumatic stress disorder, unspecified; Z79.899 Other long term (current) drug therapy; Z88.5 Allergy status to narcotic agent; Z88.8 Allergy status to other drugs, medicaments and biological substances; Z91.018 Allergy to other foods

== ENCOUNTER 2019-02-23 15:24 | Emergency (ER) | payer OTHER ==
[~2019-02-23] VITALS: Ht 167.6 cm; Wt 124.4 kg
[~2019-02-23 15:24] MED LIST changes: +DOCU100C16 PO; +PREG75CA2 PO; +RANI150T14 PO; +VITA-122 PO
[2019-02-23 15:25] VITALS: BP 144/69
[2019-02-23] MEDS ORDERED: OMEP-218 (15:30)
--- NOTE | 2019-02-23 17:04 | REP ---
Clinical: Trauma. Fall. Technique: Axial noncontrast images from the skull base to the thoracic inlet with coronal and sagittal re-formations Findings: Straightening of normal lordosis is nonspecific. Alignment is maintained. Cervical vertebral bodies including transverse processes and spinous processes are intact and there is no evidence for acute fracture / compression injury or subluxation. Spinal canal is patent. Posterior elements are intact. Paravertebral soft tissues are normal. Impression: No evidence for acute cervical pathology or trauma/injury. Electronically Signed by Alok Virk MD 02/23/2019 04:56 P
[2019-02-23] MEDS ORDERED: LIDOCAINE 5% OINT 30 GM TOP STA (17:11)
[2019-02-23] MEDS ORDERED: IBUPROFEN 600 MG TAB PO ONE (17:15)
[2019-02-23] MEDS ORDERED: METHOCARBAMOL 750 MG TAB PO ONE (17:15)
--- NOTE | 2019-02-23 17:48 | REP ---
Clinical: Trauma. Fall. Technique: Internal rotation, external rotation, and Y view shoulder . Findings: No acute fracture or dislocation. The acromioclavicular and glenohumeral joints are intact. No periarticular calcifications or degenerative changes are appreciated. Sub acromial space is normal. Surrounding soft tissues are unremarkable. Impression: No acute fracture or dislocation appreciated. Electronically Signed by Alok Virk MD 02/23/2019 05:40 P
[2019-02-23] MEDS ORDERED: ROBA750T4 PO (17:53)
[2019-02-23] MEDS ORDERED: IBUP-1022 PO (17:53)
[2019-02-23] MEDS ORDERED: LIDO1CRE2 TOP (17:53)
== END 2019-02-23 18:16 | disposition home or self-care (01) ==
LOC: M ED 15:24
DX: S13.9XXA Sprain of joints and ligaments of unspecified parts of neck, initial encounter (principal); S49.92XA Unspecified injury of left shoulder and upper arm, initial encounter; W01.198A Fall on same level from slipping, tripping and stumbling with subsequent striking against other object, initial encounter; Y92.481 Parking lot as the place of occurrence of the external cause; I10 Essential (primary) hypertension; M54.9 Dorsalgia, unspecified; R56.9 Unspecified convulsions; H91.90 Unspecified hearing loss, unspecified ear; Z88.8 Allergy status to other drugs, medicaments and biological substances; Z88.5 Allergy status to narcotic agent; Z91.013 Allergy to seafood; Z79.899 Other long term (current) drug therapy; Z79.1 Long term (current) use of non-steroidal anti-inflammatories (NSAID)

== ENCOUNTER → 2019-03-20 | Outpatient (REF) | payer OTHER ==
[~2019-03-20] MED LIST changes: +FLUO20CA19 PO; +LIDO1CRE2 TOP; +NIFE1TAB52 PO; -NIFE30TA7 PO; +OMEP-218; +PRAZ1CAP PO; +ROBA750T4 PO; +ZONI100C17 PO; -ZONI100C2 PO
== END ==
LOC: M LAB REF 09:05
PROVIDERS: ATTEND Nurse Practitioner Family
DX: R50.9 Fever, unspecified (principal)

== ENCOUNTER 2019-03-23 22:19 | Emergency (ER) | payer OTHER ==
[~2019-03-23] VITALS: Ht 167.6 cm; Wt 122.7 kg
[~2019-03-23 22:19] MED LIST changes: -FLUO20CA19 PO; -PRAZ1CAP PO
[2019-03-23] MEDS ORDERED: FLUO20CA19 PO (22:39)
[2019-03-23] MEDS ORDERED: PRAZ1CAP PO (22:39)
[2019-03-23] MEDS ORDERED: KETOROLAC 60 MG/2 ML VIAL (J1885) IM ONE (23:15)
[2019-03-24 01:05] VITALS: BP 131/60
--- NOTE | 2019-03-24 02:09 | REP ---
Clinical: Pain. Technique: AP, lateral, coned-down views of the lumbosacral spine. Findings: Alignment and lordosis maintained. Vertebral bodies are intact. No acute fracture / compression injury or subluxation. Minimal endplate sclerosis and mild hypertrophic facet changes at L4-5 and L5-S1 cannot be excluded. Impression: Essentially age-appropriate examination. No acute fracture / compression injury or subluxation. Electronically Signed by Alok Virk MD 03/24/2019 02:00 A
== END 2019-03-24 01:16 | disposition home or self-care (01) ==
LOC: M ED 22:19
DX: G89.29 Other chronic pain (principal); M54.5 Low back pain; E66.01 Morbid (severe) obesity due to excess calories; K21.9 Gastro-esophageal reflux disease without esophagitis; Z79.82 Long term (current) use of aspirin; Z79.899 Other long term (current) drug therapy; Z91.013 Allergy to seafood; Z91.02 Food additives allergy status; Z88.8 Allergy status to other drugs, medicaments and biological substances
CPT/HCPCS: 72100; 96372; 99284; J1885

== ENCOUNTER → 2019-04-06 | Outpatient (REF) | payer OTHER ==
[~2019-04-06] MED LIST changes: +FLUO20CA19 PO; +PRAZ1CAP PO
== END ==
LOC: M SFHCRHEU 10:32
PROVIDERS: ATTEND Internal Medicine
DX: R76.8 Other specified abnormal immunological findings in serum (principal); R79.82 Elevated C-reactive protein (CRP); M79.7 Fibromyalgia

== ENCOUNTER 2019-06-06 18:39 | Emergency (ER) | payer OTHER ==
[~2019-06-06] VITALS: Ht 167.6 cm; Wt 128.4 kg
[2019-06-06 18:39] VITALS: BP 139/85
[~2019-06-06 18:39] MED LIST changes: -FLUO20CA19 PO; +FLUO20CA22 PO
[2019-06-06] MEDS ORDERED: IBUP-1022 PO (18:54)
[2019-06-06] MEDS ORDERED: ACETAMINOPHEN 500 MG TAB PO ONE (19:15)
[2019-06-06] MEDS ORDERED: BENZOCAINE 20% GEL 9GM TUBE (ANBESOL MAX STRENGTH) TOP ONE (19:15)
== END 2019-06-06 19:46 | disposition home or self-care (01) ==
LOC: M ED 18:39
DX: K08.89 Other specified disorders of teeth and supporting structures (principal); K02.9 Dental caries, unspecified; I10 Essential (primary) hypertension; F19.11 Other psychoactive substance abuse, in remission; Z88.8 Allergy status to other drugs, medicaments and biological substances; Z91.048 Other nonmedicinal substance allergy status; Z79.899 Other long term (current) drug therapy; Z79.2 Long term (current) use of antibiotics

== ENCOUNTER → 2019-06-24 | Outpatient (CLI) | payer OTHER ==
[2019-06-24 13:17] LABS: APPEARANCE, URINE HAZY (CLEAR); BACTERIA, URINE AUTO NEGATIVE (NEGATIVE); BILIRUBIN, URINE AUTO NEGATIVE (NEGATIVE); BLOOD, URINE BLOOD 1+ (NEGATIVE); COLOR, URINE YELLOW (YELLOW); GLUCOSE, URINE (UA) AUTO NEGATIVE (NEGATIVE); KETONE, URINE AUTO NEGATIVE (NEGATIVE); LEUKOCYTE ESTERASE, URINE AUTO NEGATIVE (NEGATIVE); NITRITE, URINE AUTO NEGATIVE (NEGATIVE); PROTEIN, URINE AUTO NEGATIVE (NEGATIVE); RBC, URINE AUTO 3 /HPF (0-3); SPECIFIC GRAVITY URINE AUTO 1.021 (1.002-1.035); SQUAMOUS EPITHELIAL CELL UR AU 6 /HPF (0-6); UROBILINOGEN, URINE AUTO 0.2 mg/dL (0.0-2.0); WBC, URINE AUTO 0 /HPF (0-3)
[2019-06-24 13:19] LABS: BASO # 0.1 10^3/uL (0.0-0.2); BASO % 1.1 % (0.0-1.0); EOS # 0.4 10^3/uL (0.0-0.5); EOS % 5.8 % (0.0-3.0); HEMOGLOBIN 13.9 g/dl (12.0-15.5); LYMPH # 2.3 10^3/uL (1.5-5.0); LYMPH % 30.9 % (24.0-44.0); MEAN CORPUSCULAR HEMOGLOBIN 28.9 pg (27.0-33.0); MEAN CORPUSCULAR HGB CONC 33.1 g/dl (32.0-36.5); MEAN CORPUSCULAR VOLUME 87.3 fl (80.0-96.0); MONO # 0.6 10^3/uL (0.0-0.8); MONO % 7.9 % (0.0-5.0); PLATELET COUNT, AUTOMATED 212 10^3/uL (150-450); RED BLOOD COUNT 4.81 10^6/uL (4.00-5.40); WHITE BLOOD COUNT 7.4 10^3/uL (4.0-10.0)
[2019-06-24 13:53] LABS: ALBUMIN 3.4 GM/DL (3.2-5.2); ALT/SGPT 111 U/L (12-78); BILIRUBIN,TOTAL 0.3 MG/DL (0.2-1.0); BLOOD UREA NITROGEN 19 MG/DL (7-18); CALCIUM LEVEL 8.8 MG/DL (8.5-10.1); CARBON DIOXIDE LEVEL 21 MEQ/L (21-32); CHLORIDE LEVEL 109 MEQ/L (98-107); CHOLESTEROL LEVEL 176 MG/DL (<200); CREATININE FOR GFR 0.86 MG/DL (0.55-1.30); GLOMERULAR FILTRATION RATE > 60.0 (>60); GLUCOSE, FASTING 86 MG/DL (70-100); HDL CHOLESTEROL 42 MG/DL (>40); LDL CHOLESTEROL 94 MG/DL (<100); NON-HDL-C 134 MG/DL; NT-PRO BNP 24 PG/ML (<125); POTASSIUM SERUM 4.8 MEQ/L (3.5-5.1); SODIUM LEVEL 137 MEQ/L (136-145); TOTAL 25(OH) VITAMIN D 24.9 NG/ML (30.0-100.0); TOTAL PROTEIN 7.3 GM/DL (6.4-8.2); TRIGLYCERIDES LEVEL 202 MG/DL (<150)
--- NOTE | 2019-06-24 17:50 | REP ---
Clinical: Chest pain . Comparison: 11/02/2018 . Technique: PA and lateral. Findings: The mediastinum and cardiac silhouette are normal. The lung machado are clear and without acute consolidation, effusion, or pneumothorax. The skeletal structures are intact and normal. Impression: 1. No acute cardiopulmonary process. Electronically Signed by Alok Virk MD 06/24/2019 05:42 P
[2019-06-25 14:06] LABS: CREATININE, URINE 124.7 mg/dL (20.0-300.0)
== END ==
LOC: M LAB 11:13
PROVIDERS: ATTEND Family Medicine
DX: R07.89 Other chest pain (principal); J45.909 Unspecified asthma, uncomplicated; N18.3 Chronic kidney disease, stage 3 (moderate); E55.9 Vitamin D deficiency, unspecified; F12.10 Cannabis abuse, uncomplicated; F14.10 Cocaine abuse, uncomplicated; I12.9 Hypertensive chronic kidney disease with stage 1 through stage 4 chronic kidney disease, or unspecified chronic kidney disease

== ENCOUNTER 2019-08-30 17:55 | Emergency (ER) | payer OTHER ==
[~2019-08-30] VITALS: Ht 167.6 cm; Wt 130.0 kg
[~2019-08-30 17:55] MED LIST changes: -LACT10SO29 PO; +LACT20EL PO
[2019-08-30] MEDS ORDERED: AIMO70IN (18:04)
[2019-08-30] MEDS ORDERED: IBUPROFEN 600MG TAB PO ONE (19:00)
[2019-08-30 19:19] LABS: BASO # 0.1 10^3/uL (0.0-0.2); BASO % 0.7 % (0.0-1.0); EOS # 0.5 10^3/uL (0.0-0.5); EOS % 5.4 % (0.0-3.0); HEMATOCRIT 40.1 % (36.0-47.0); HEMOGLOBIN 13.5 g/dl (12.0-15.5); LYMPH # 2.4 10^3/uL (1.5-5.0); LYMPH % 27.4 % (24.0-44.0); MEAN CORPUSCULAR HEMOGLOBIN 29.5 pg (27.0-33.0); MEAN CORPUSCULAR HGB CONC 33.7 g/dl (32.0-36.5); MEAN CORPUSCULAR VOLUME 87.6 fl (80.0-96.0); MONO # 0.6 10^3/uL (0.0-0.8); MONO % 6.9 % (0.0-5.0); NEUTROPHILS # 5.2 10^3/uL (1.5-8.5); NEUTROPHILS % 59.3 % (36.0-66.0); PLATELET COUNT, AUTOMATED 243 10^3/uL (150-450); RED BLOOD COUNT 4.58 10^6/uL (4.00-5.40); WHITE BLOOD COUNT 8.7 10^3/uL (4.0-10.0)
[2019-08-30] MEDS ORDERED: ACETAMINOPHEN 500 MG TAB PO ONE (20:00)
[2019-08-30] MEDS ORDERED: LIDOCAINE 2% MDV 20ML VIAL SC ONE (21:15)
[2019-08-30 21:41] VITALS: BP 135/85
== END 2019-08-30 21:43 | disposition home or self-care (01) ==
LOC: M ED 17:55
DX: M79.602 Pain in left arm (principal); Z32.01 Encounter for pregnancy test, result positive

== ENCOUNTER → 2019-09-01 | Outpatient (CLI) | payer OTHER ==
[~2019-09-01] MED LIST changes: +ACYC800T PO; +AIMO70IN; +PREN1CHW6 PO
== END ==
LOC: M LAB 10:26
PROVIDERS: ATTEND Physician Assistant Medical
DX: Z32.01 Encounter for pregnancy test, result positive (principal)

== ENCOUNTER 2019-09-09 18:59 | Emergency (ER) | payer OTHER ==
[~2019-09-09] VITALS: Ht 167.6 cm; Wt 134.0 kg
[~2019-09-09 18:59] MED LIST changes: -ACYC800T PO; -PREN1CHW6 PO
[2019-09-09] MEDS ORDERED: PREN1CHW6 PO (19:10)
[2019-09-09 19:53] LABS: BASO # 0.1 10^3/uL (0.0-0.2); BASO % 0.8 % (0.0-1.0); EOS # 0.6 10^3/uL (0.0-0.5); EOS % 5.9 % (0.0-3.0); HEMATOCRIT 38.4 % (36.0-47.0); HEMOGLOBIN 12.9 g/dl (12.0-15.5); LYMPH # 2.5 10^3/uL (1.5-5.0); LYMPH % 26.3 % (24.0-44.0); MEAN CORPUSCULAR HEMOGLOBIN 29.9 pg (27.0-33.0); MEAN CORPUSCULAR HGB CONC 33.6 g/dl (32.0-36.5); MEAN CORPUSCULAR VOLUME 89.1 fl (80.0-96.0); MONO # 0.7 10^3/uL (0.0-0.8); MONO % 7.4 % (0.0-5.0); NEUTROPHILS # 5.7 10^3/uL (1.5-8.5); NEUTROPHILS % 59.2 % (36.0-66.0); PLATELET COUNT, AUTOMATED 223 10^3/uL (150-450); RED BLOOD COUNT 4.31 10^6/uL (4.00-5.40); WHITE BLOOD COUNT 9.6 10^3/uL (4.0-10.0)
[2019-09-09 20:23] LABS: ERYTHROCYTE SEDIMENTATION RATE 49 mm/hr (0-20)
[2019-09-09] MEDS ORDERED: ACYC800T PO (20:42)
[2019-09-09] MEDS ORDERED: ACYCLOVIR 200 MG CAPSULE PO ONE (20:45)
[2019-09-09 20:58] VITALS: BP 135/83
[2019-10-27] MEDS ORDERED: MACR100C43 PO (09:27)
== END 2019-09-09 20:59 | disposition home or self-care (01) ==
LOC: M ED 18:59
DX: O98.519 Other viral diseases complicating pregnancy, unspecified trimester (principal); B02.9 Zoster without complications; O10.919 Unspecified pre-existing hypertension complicating pregnancy, unspecified trimester; Z3A.00 Weeks of gestation of pregnancy not specified; Z79.82 Long term (current) use of aspirin; Z88.8 Allergy status to other drugs, medicaments and biological substances; Z91.013 Allergy to seafood

== ENCOUNTER → 2019-10-08 | Outpatient (REF) | payer OTHER ==
[~2019-10-08] MED LIST changes: +ACYC800T PO; +LIDO5DIS41 TOP; +PREN1CHW6 PO
[2019-11-06 01:15] LABS: BASO # 0.1 10^3/uL (0.0-0.2); BASO % 0.7 % (0.0-1.0); EOS # 0.4 10^3/uL (0.0-0.5); EOS % 4.1 % (0.0-3.0); HEMATOCRIT 41.1 % (36.0-47.0); HEMOGLOBIN 13.6 g/dl (12.0-15.5); LYMPH # 2.2 10^3/uL (1.5-5.0); LYMPH % 24.3 % (24.0-44.0); MEAN CORPUSCULAR HEMOGLOBIN 29.2 pg (27.0-33.0); MEAN CORPUSCULAR HGB CONC 33.1 g/dl (32.0-36.5); MEAN CORPUSCULAR VOLUME 88.2 fl (80.0-96.0); MONO # 0.6 10^3/uL (0.0-0.8); MONO % 6.1 % (0.0-5.0); NEUTROPHILS # 5.9 10^3/uL (1.5-8.5); NEUTROPHILS % 64.5 % (36.0-66.0); PLATELET COUNT, AUTOMATED 242 10^3/uL (150-450); RED BLOOD COUNT 4.66 10^6/uL (4.00-5.40); WHITE BLOOD COUNT 9.2 10^3/uL (4.0-10.0)
[2019-11-20 14:42] LABS: CHLAMYDIA DNA AMPLIFICATION NEGATIVE (NEGATIVE); GC DNA AMPLIFICATION NEGATIVE (NEGATIVE)
[2019-12-24 08:06] LABS: HEPATITIS C VIRUS ABY INDEX 2.4 INDEX (<0.8); HIV 1&2 SCREEN CENTAUR NEGATIVE (NEGATIVE)
== END ==
LOC: M SFHCWAGY 06:19
PROVIDERS: ATTEND Specialist
DX: Z34.00 Encounter for supervision of normal first pregnancy, unspecified trimester (principal)

== ENCOUNTER 2019-10-24 14:56 | Emergency (ER) | payer OTHER ==
[~2019-10-24] VITALS: Ht 167.6 cm; Wt 129.2 kg
[~2019-10-24 14:56] MED LIST changes: -LIDO5DIS41 TOP
[2019-10-24 17:44] LABS: BASO % 0.4 % (0.0-1.0); EOS # 0.3 10^3/uL (0.0-0.5); EOS % 2.9 % (0.0-3.0); HEMATOCRIT 40.5 % (36.0-47.0); HEMOGLOBIN 13.7 g/dl (12.0-15.5); LYMPH # 1.5 10^3/uL (1.5-5.0); LYMPH % 14.6 % (24.0-44.0); MEAN CORPUSCULAR HEMOGLOBIN 29.5 pg (27.0-33.0); MEAN CORPUSCULAR HGB CONC 33.8 g/dl (32.0-36.5); MEAN CORPUSCULAR VOLUME 87.3 fl (80.0-96.0); MONO # 0.3 10^3/uL (0.0-0.8); MONO % 2.9 % (0.0-5.0); NEUTROPHILS # 7.8 10^3/uL (1.5-8.5); NEUTROPHILS % 78.7 % (36.0-66.0); PLATELET COUNT, AUTOMATED 223 10^3/uL (150-450); RED BLOOD COUNT 4.64 10^6/uL (4.00-5.40); WHITE BLOOD COUNT 9.9 10^3/uL (4.0-10.0)
--- NOTE | 2019-10-24 18:03 | REPVR ---
PROCEDURE INFORMATION: Exam: US First Trimester, Transabdominal Exam date and time: 10/24/2019 5:39 PM Age: 39 years old Clinical indication: Other: Abd and pelvic pain; Gestational age or lmp: 12; ; Additional info: Abd pain, 10 weeks TECHNIQUE: Imaging protocol: Real-time transabdominal obstetrical ultrasound of the maternal pelvis and a first trimester , less than 14 weeks 0 days, with image documentation. COMPARISON: US OBS FOLL UP OR REPEAT EACH GES 09/24/2018 11:04 AM FINDINGS: Gestation: Single gestational sac demonstrated in the uterus. Embryonic/ heart rate: heart rate 157 bpm. Placenta: Anterior placenta. Amniotic fluid: Amniotic fluid is normal for gestational age. BIOMETRY: Gestational age (AUA): 12.2 weeks using crown-rump length. Reported LMP is 05/24/2019. [place]-Rump length: [place]-rump length measures 56.6 cm. MATERNAL: Uterus: Uterus measures 11.7 x 6.8 x 8 cm. Cervix: Unremarkable. Right adnexa: Unremarkable. Left adnexa: Unremarkable. Intraperitoneal space: No intraperitoneal free fluid. IMPRESSION: Unremarkable 1st trimester gestation at 12 weeks 2 days. Electronically signed by: Butch Maza On 10/24/2019 18:03:56 PM
[2019-10-24 18:07] LABS: ALBUMIN 3.2 GM/DL (3.2-5.2); ALT/SGPT 23 U/L (12-78); BILIRUBIN,DIRECT 0.1 MG/DL (0.0-0.2); BILIRUBIN,TOTAL 0.4 MG/DL (0.2-1.0); BLOOD UREA NITROGEN 9 MG/DL (7-18); CALCIUM LEVEL 8.6 MG/DL (8.5-10.1); CARBON DIOXIDE LEVEL 23 MEQ/L (21-32); CHLORIDE LEVEL 108 MEQ/L (98-107); CREATININE FOR GFR 0.69 MG/DL (0.55-1.30); GLOMERULAR FILTRATION RATE > 60.0 (>60); GLUCOSE, FASTING 88 MG/DL (70-100); LIPASE 72 U/L (73-393); POTASSIUM SERUM 3.9 MEQ/L (3.5-5.1); SODIUM LEVEL 139 MEQ/L (136-145); TOTAL PROTEIN 7.1 GM/DL (6.4-8.2)
[2019-10-24 18:30] VITALS: BP 132/69
[2019-10-27] MEDS ORDERED: MACR100C43 PO (09:27)
== END 2019-10-24 19:26 | disposition home or self-care (01) ==
LOC: M ED 14:56
DX: O26.891 Other specified pregnancy related conditions, first trimester (principal); R10.84 Generalized abdominal pain; Z3A.12 12 weeks gestation of pregnancy; Z88.8 Allergy status to other drugs, medicaments and biological substances; Z91.013 Allergy to seafood; Z91.048 Other nonmedicinal substance allergy status; Z79.899 Other long term (current) drug therapy

== ENCOUNTER → 2019-11-10 | Outpatient (CLI) | payer OTHER ==
[~2019-11-10] MED LIST changes: +LIDO5DIS41 TOP
== END ==
LOC: M PLALAB 10:36
PROVIDERS: ATTEND Advanced Practice Midwife
DX: O99.212 Obesity complicating pregnancy, second trimester (principal)

== ENCOUNTER → 2019-12-08 | Outpatient (REF) | payer OTHER | LOC: M SFHCWAGY 13:14 | PROVIDERS: ATTEND Advanced Practice Midwife | DX: Z12.4 Encounter for screening for malignant neoplasm of cervix (principal) ==

== ENCOUNTER → 2019-12-08 | Outpatient (REF) | payer OTHER ==
[2019-12-08 16:49] LABS: HEMATOCRIT 38.8 % (36.0-47.0); HEMOGLOBIN 12.8 g/dl (12.0-15.5); MEAN CORPUSCULAR HEMOGLOBIN 29.6 pg (27.0-33.0); MEAN CORPUSCULAR VOLUME 89.8 fl (80.0-96.0); PLATELET COUNT, AUTOMATED 196 10^3/uL (150-450); RED BLOOD COUNT 4.32 10^6/uL (4.00-5.40); WHITE BLOOD COUNT 9.5 10^3/uL (4.0-10.0)
[2019-12-08 16:50] LABS: ALT/SGPT 22 U/L (12-78); BILIRUBIN,TOTAL 0.2 MG/DL (0.2-1.0); CREATININE FOR GFR 0.66 MG/DL (0.55-1.30); GLOMERULAR FILTRATION RATE > 60.0 (>60); LDH LACTATE DEHYDROGENASE 166 U/L (84-246); URIC ACID 3.8 MG/DL (2.6-6.0)
[2019-12-08 17:45] LABS: HIV 1&2 SCREEN CENTAUR NEGATIVE (NEGATIVE)
[2019-12-08 17:50] LABS: HEPATITIS C VIRUS ABY INDEX 1.1 INDEX (<0.8)
== END ==
LOC: M PLALAB 12:20
PROVIDERS: ATTEND Advanced Practice Midwife
DX: O34.211 Maternal care for low transverse scar from previous cesarean delivery (principal); Z3A.00 Weeks of gestation of pregnancy not specified

== ENCOUNTER → 2019-12-14 | Outpatient (CLI) | payer OTHER ==
--- NOTE | 2019-12-17 12:42 | REP ---
OBSTETRIC SONOGRAPHY HISTORY: Supervision of for anatomy. FINDINGS: Scanning through the gravid uterus demonstrates a viable single intrauterine gestation in a transverse, head to the maternal left lie. motion is observed and heart rate is recorded at 149 beats per minute. Amniotic fluid is subjectively normal. An anterior grade 0 placenta is seen without evidence of previa. Three vessel umbilical cord is observed. Closed cervical length is measured at 3.8 cm viewed transabdominally. Exam quality is inhibited by maternal body habitus. No abnormality is observed. nose and lips, four chamber heart, and left ventricular outflow tract view, stomach, kidneys, and spine are less than optimally seen today due to transverse presentation and maternal body habitus. The following additional anatomic structures are identified and felt to be unremarkable: cranium, intracranial anatomy, facial profile, right ventricular outflow tract view, diaphragm, urinary bladder, right and left upper and lower extremities. BIOMETRY CHART: BPD 4.5 cm 19 weeks 4 days Head circumference 16.9 cm 19 weeks 3 days Abdominal circumference 14.2 cm 19 weeks 4 days Femur length 3.1 cm 19 weeks 4 days Humeral length 2.9 cm 19 weeks 4 days AC/HC ratio 1.19 Normal Cephalic index 0.73 Normal Estimated weight 298 grams, 0 pounds 10 ounces, 46th percentile for 19 weeks 4 days. IMPRESSION: Viable single intrauterine gestation at 19 weeks 4 days by todays composite criteria. Estimated date of delivery (BENJI) by todays sonography 05/05/2020. anatomic survey is less than complete as above. MTDD
== END ==
LOC: M WHC 12:53
PROVIDERS: ATTEND Advanced Practice Midwife
DX: O34.211 Maternal care for low transverse scar from previous cesarean delivery (principal); Z3A.19 19 weeks gestation of pregnancy

== ENCOUNTER 2019-12-18 16:18 | Emergency (ER) | payer OTHER ==
[~2019-12-18] VITALS: Ht 167.6 cm; Wt 129.0 kg
[~2019-12-18 16:18] MED LIST changes: -LIDO5DIS41 TOP
[2019-12-18] MEDS ORDERED: LIDOCAINE 5% (LIDODERM) PATCH TD ONE (17:30)
[2019-12-18] MEDS ORDERED: LIDO5DIS41 TOP (18:12)
[2019-12-18 18:17] VITALS: BP 131/84
[2019-12-18] MEDS ORDERED: **NOTE PATIENT COMMENT** MISC XX SCH (21:00)
== END 2019-12-18 18:19 | disposition home or self-care (01) ==
LOC: M ED 16:18
DX: O26.892 Other specified pregnancy related conditions, second trimester (principal); M54.9 Dorsalgia, unspecified; M54.2 Cervicalgia; G89.29 Other chronic pain; Z3A.20 20 weeks gestation of pregnancy; O99.342 Other mental disorders complicating pregnancy, second trimester; F43.10 Post-traumatic stress disorder, unspecified; O99.892 Other specified diseases and conditions complicating childbirth; M79.7 Fibromyalgia; Z91.013 Allergy to seafood; Z88.8 Allergy status to other drugs, medicaments and biological substances; Z88.5 Allergy status to narcotic agent; Z79.899 Other long term (current) drug therapy

== ENCOUNTER 2019-12-24 11:08 | Outpatient (CLI) | payer OTHER ==
[~2019-12-24] VITALS: Ht 167.6 cm; Wt 129.2 kg
[~2019-12-24 11:08] MED LIST changes: +LIDO5DIS41 TOP
[2019-12-24 12:14] LABS: APPEARANCE, URINE HAZY (CLEAR); BACTERIA, URINE AUTO NEGATIVE (NEGATIVE); BILIRUBIN, URINE AUTO NEGATIVE (NEGATIVE); BLOOD, URINE BLOOD NEGATIVE (NEGATIVE); COLOR, URINE AMBER (YELLOW); GLUCOSE, URINE (UA) AUTO NEGATIVE (NEGATIVE); KETONE, URINE AUTO NEGATIVE (NEGATIVE); LEUKOCYTE ESTERASE, URINE AUTO NEGATIVE (NEGATIVE); MUCUS, URINE SMALL (NEGATIVE); NITRITE, URINE AUTO NEGATIVE (NEGATIVE); PROTEIN, URINE AUTO NEGATIVE (NEGATIVE); RBC, URINE AUTO 1 /HPF (0-3); SQUAMOUS EPITHELIAL CELL UR AU 7 /HPF (0-6); UROBILINOGEN, URINE AUTO 0.2 mg/dL (0.0-2.0); WBC, URINE AUTO 1 /HPF (0-3)
--- NOTE | 2019-12-24 13:21 | IPNPDOC ---
Text Note Date of Service The patient was seen on 12/24/19. NOTE Outpatient 39yo BENJI 05/05/2020. Presents at 21 weeks with complaints of lower abdominal and groin pain. Denies bleeding, LOF or regular UC. Reports not feelin baby move yet. VSS Resting in bed, no apparent distress FH via doppler 150's Abdomen soft, gravid, nontender. No UC on monitor. Reports discomfort radiates "down into my area" Urine is dark, concentrated. SG 1.020, no evidence of infection. Pt reports only drinking one glass of milk today, no water. UA/C&S/GC/CT obtained. Encouraged to hydrate orally. Reports feeling better after eating and drinking. States the pain is mostly in right groin when she moves. Discussed round ligament issues and pain due to weight gain. Rec she continue to drink well and use the maternity belt she has from her previous . Discharged home with instructions. Keep next appt on 01/06. Savanna Smith CNM Dec 24, 2019 11:55
[2019-12-24 14:05] LABS: CHLAMYDIA DNA AMPLIFICATION NEGATIVE (NEGATIVE); GC DNA AMPLIFICATION NEGATIVE (NEGATIVE)
== END 2019-12-24 13:25 | disposition home or self-care (01) ==
LOC: M LDO 11:08
PROVIDERS: ATTEND Advanced Practice Midwife
DX: O26.892 Other specified pregnancy related conditions, second trimester (principal); R10.2 Pelvic and perineal pain; Z3A.21 21 weeks gestation of pregnancy

== ENCOUNTER → 2020-01-13 | Outpatient (CLI) | payer OTHER ==
--- NOTE | 2020-01-13 17:48 | REP ---
INDICATION: F/U ANATOMY. Previous section. face, four-chamber heart and outflow tract, stomach kidneys and spine. COMPARISON: Comparison obstetric sonography December 14, 2019.. TECHNIQUE: Transabdominal obstetric sonography. FINDINGS: Scanning through the gravid uterus demonstrates a viable single intrauterine gestation in variable lie. motion is observed and heart rate is recorded at 149 beats per minute. A anterior placenta is seen, grade 0, without evidence of placenta previa. Amniotic fluid is subjectively normal. Closed cervical length is measured at 3.2 cm transabdominally. No extrauterine abnormality is observed. Four-chamber heart and left ventricular outflow tract view could not be achieved on today's study. Exam quality was inhibited somewhat by maternal body habitus and position. nose and lips were seen and are unremarkable. Left-sided stomach, right and left kidney, and spine are seen today and are felt to be unremarkable.. Biometry chart: BPD 5.8 cm, 23 weeks 6 days Head circumference 21.8 cm, 23 weeks 6 days Abdominal circumference 19.0 cm 23 weeks 5 days Femur length 4.2 cm, 23 weeks 5 days Humeral length 3.9 cm, 23 weeks 6 days HC AC ratio normal 1.15 Cephalic index normal 0.74 Estimated weight 626 g, 1 lb 6 oz, 39th percentile for 23 weeks 6 days IMPRESSION: Viable single intrauterine gestation at 23 weeks 5 days by today's composite sonographic criteria. BENJI by today's sonography May 06, 2020. No complication identified. Expected gestational age estimate based on prior sonography is 23 weeks 6 days. BENJI by prior sonography May 05, 2020. Four-chamber heart and left ventricular outflow tract view still less than optimally achieved. <Electronically signed by Freddie Ortiz > 01/13/20 [id number]
== END ==
LOC: M WHC 10:54
PROVIDERS: ATTEND Advanced Practice Midwife
DX: O34.211 Maternal care for low transverse scar from previous cesarean delivery (principal); Z3A.23 23 weeks gestation of pregnancy

== ENCOUNTER 2020-01-19 18:54 | Outpatient (CLI) | payer OTHER ==
[~2020-01-19] VITALS: Ht 167.6 cm; Wt 129.3 kg
[2020-01-19 19:23] VITALS: BP 142/86
[2020-01-19 19:52] VITALS: BP 120/60
[2020-01-19 19:56] LABS: HEMATOCRIT 37.5 % (36.0-47.0); HEMOGLOBIN 12.4 g/dl (12.0-15.5); MEAN CORPUSCULAR HEMOGLOBIN 29.5 pg (27.0-33.0); MEAN CORPUSCULAR HGB CONC 33.1 g/dl (32.0-36.5); MEAN CORPUSCULAR VOLUME 89.1 fl (80.0-96.0); PLATELET COUNT, AUTOMATED 223 10^3/uL (150-450); RED BLOOD COUNT 4.21 10^6/uL (4.00-5.40); WHITE BLOOD COUNT 11.4 10^3/uL (4.0-10.0)
[2020-01-19 20:05] VITALS: BP 124/58
[2020-01-19 20:14] LABS: ALT/SGPT 17 U/L (12-78); BILIRUBIN,TOTAL 0.3 MG/DL (0.2-1.0); CREATININE FOR GFR 0.72 MG/DL (0.55-1.30); GLOMERULAR FILTRATION RATE > 60.0 (>60); LDH LACTATE DEHYDROGENASE 132 U/L (84-246); URIC ACID 3.8 MG/DL (2.6-6.0)
[2020-01-19] MEDS ORDERED: ACETAMINOPHEN 500 MG TAB PO ONE (20:15)
[2020-01-19 21:21] LABS: TOTAL PROTEIN,RANDOM URINE 15.3 MG/DL (0.0-12.0)
[2020-01-19 23:54] VITALS: BP 142/76
== END 2020-01-19 23:55 | disposition home or self-care (01) ==
LOC: M LDO 18:54
PROVIDERS: ATTEND Advanced Practice Midwife
DX: O26.892 Other specified pregnancy related conditions, second trimester (principal); R51.9 Headache, unspecified; Z3A.24 24 weeks gestation of pregnancy

== ENCOUNTER → 2020-01-24 | Outpatient (REF) | payer OTHER ==
[2020-01-24 17:50] LABS: HEMATOCRIT 37.2 % (36.0-47.0); HEMOGLOBIN 12.4 g/dl (12.0-15.5); MEAN CORPUSCULAR HGB CONC 33.3 g/dl (32.0-36.5); MEAN CORPUSCULAR VOLUME 90.1 fl (80.0-96.0); PLATELET COUNT, AUTOMATED 222 10^3/uL (150-450); RED BLOOD COUNT 4.13 10^6/uL (4.00-5.40); WHITE BLOOD COUNT 11.8 10^3/uL (4.0-10.0)
== END ==
LOC: M PLALAB 13:51
PROVIDERS: ATTEND Advanced Practice Midwife
DX: O34.211 Maternal care for low transverse scar from previous cesarean delivery (principal); Z3A.00 Weeks of gestation of pregnancy not specified

== ENCOUNTER 2020-03-02 07:46 | Emergency (ER) | payer OTHER ==
[~2020-03-02] VITALS: Ht 167.6 cm; Wt 131.2 kg
[2020-03-02] MEDS ORDERED: BUTACAP78 (07:56)
[2020-03-02] MEDS ORDERED: BENA25CA4 PO (07:56)
[2020-03-02] MEDS ORDERED: ASPI81CH49 PO (07:56)
[2020-03-02] MEDS ORDERED: TETRACAINE 0.5% OPHTH SOLN 4ML OS ONE (08:30)
[2020-03-02] MEDS ORDERED: FLUORESCEIN OPHTH 1 MG STRIP OS ONE (08:30)
[2020-03-02] MEDS ORDERED: ACYC800T PO (09:43)
[2020-03-02 09:56] VITALS: BP 157/97
[2020-03-02] MEDS ORDERED: ACYCLOVIR 200 MG CAPSULE PO ONE (10:00)
== END 2020-03-02 10:05 | disposition home or self-care (01) ==
LOC: M ED 07:46
DX: O98.513 Other viral diseases complicating pregnancy, third trimester (principal); B00.9 Herpesviral infection, unspecified; B02.30 Zoster ocular disease, unspecified; O99.513 Diseases of the respiratory system complicating pregnancy, third trimester; J45.909 Unspecified asthma, uncomplicated; O99.613 Diseases of the digestive system complicating pregnancy, third trimester; K44.9 Diaphragmatic hernia without obstruction or gangrene; Z86.19 Personal history of other infectious and parasitic diseases; O99.353 Diseases of the nervous system complicating pregnancy, third trimester; G43.909 Migraine, unspecified, not intractable, without status migrainosus; O99.343 Other mental disorders complicating pregnancy, third trimester; F41.9 Anxiety disorder, unspecified; F43.10 Post-traumatic stress disorder, unspecified; O26.893 Other specified pregnancy related conditions, third trimester; M54.9 Dorsalgia, unspecified; G89.29 Other chronic pain; Z3A.31 31 weeks gestation of pregnancy; Z88.8 Allergy status to other drugs, medicaments and biological substances; Z88.5 Allergy status to narcotic agent; Z91.048 Other nonmedicinal substance allergy status; Z91.013 Allergy to seafood; Z86.001 Personal history of in-situ neoplasm of cervix uteri; Z79.899 Other long term (current) drug therapy; Z79.82 Long term (current) use of aspirin

== ENCOUNTER → 2020-03-06 | Outpatient (CLI) | payer OTHER ==
[~2020-03-06] MED LIST changes: +ASPI81CH49 PO; +BENA25CA4 PO; +BUTACAP78
--- NOTE | 2020-03-06 11:11 | REP ---
INDICATION: F/U ANATOMY COMPARISON: 01/13/2020 TECHNIQUE: Transabdominal obstetrical ultrasound with color Doppler evaluation. FINDINGS: Examination demonstrates a single live intrauterine in cephalic presentation. motion is identified by technologist. Placenta is noted anterior and grade 1 without evidence for placenta previa or abruption. Amniotic fluid volume is normal. Cervix measures 3.1 cm in length and appears closed. KARLY: 16.4 cm (8.7-24.0). Gestational age by LMP 31 weeks 3 days with BENJI 05/05/2020. Gestational age by current measurements 31 weeks 2 days with BENJI 05/06/2020. FHR equals 161 beats per minute. Estimated weight 1745 grams (37thpercentile). Anatomical assessment again demonstrates limited evaluation of the four-chamber heart and cardiac ventricular outflow tracts due to age and positioning. IMPRESSION: Single live advanced gestation in cephalic presentation demonstrating appropriate interval growth and estimated weight. Limited evaluation of the heart and ventricular outflow tracts again noted. <Electronically signed by Alok Virk > 03/06/20 0931
== END ==
LOC: M WHC 08:32
PROVIDERS: ATTEND Advanced Practice Midwife
DX: O09.523 Supervision of elderly multigravida, third trimester (principal); Z3A.31 31 weeks gestation of pregnancy

== ENCOUNTER → 2020-03-08 | Outpatient (REF) | payer OTHER ==
[2020-03-08 15:29] LABS: HEMOGLOBIN 13.3 g/dl (12.0-15.5); MEAN CORPUSCULAR HEMOGLOBIN 30.4 pg (27.0-33.0); MEAN CORPUSCULAR HGB CONC 33.3 g/dl (32.0-36.5); MEAN CORPUSCULAR VOLUME 91.5 fl (80.0-96.0); PLATELET COUNT, AUTOMATED 214 10^3/uL (150-450); RED BLOOD COUNT 4.37 10^6/uL (4.00-5.40)
[2020-03-08 16:08] LABS: ALT/SGPT 16 U/L (12-78); BILIRUBIN,TOTAL 0.2 MG/DL (0.2-1.0); CREATININE FOR GFR 0.62 MG/DL (0.55-1.30); GLOMERULAR FILTRATION RATE > 60.0 (>60); LDH LACTATE DEHYDROGENASE 145 U/L (84-246); TOTAL PROTEIN,RANDOM URINE 17.2 MG/DL (0.0-12.0); URIC ACID 3.6 MG/DL (2.6-6.0)
== END ==
LOC: M PLALAB 12:22
PROVIDERS: ATTEND Advanced Practice Midwife
DX: O34.211 Maternal care for low transverse scar from previous cesarean delivery (principal)

== ENCOUNTER 2020-03-09 21:46 | Outpatient (CLI) | payer OTHER ==
[~2020-03-09] VITALS: Ht 167.6 cm; Wt 131.9 kg
[2020-03-09 22:07] VITALS: BP 135/77
== END 2020-03-10 00:15 | disposition home or self-care (01) ==
LOC: M LDO 21:46
PROVIDERS: ATTEND Obstetrics & Gynecology
DX: O26.893 Other specified pregnancy related conditions, third trimester (principal); Z3A.31 31 weeks gestation of pregnancy; Z88.1 Allergy status to other antibiotic agents; Z88.6 Allergy status to analgesic agent; Z88.8 Allergy status to other drugs, medicaments and biological substances; Z91.013 Allergy to seafood

== ENCOUNTER 2020-03-19 22:08 | Outpatient (CLI) | payer OTHER ==
[~2020-03-19] VITALS: Ht 167.6 cm; Wt 133.1 kg
[2020-03-19 22:29] VITALS: BP 148/76
[2020-03-19 23:19] LABS: HEMATOCRIT 38.4 % (36.0-47.0); HEMOGLOBIN 12.7 g/dl (12.0-15.5); MEAN CORPUSCULAR HEMOGLOBIN 29.7 pg (27.0-33.0); MEAN CORPUSCULAR HGB CONC 33.1 g/dl (32.0-36.5); MEAN CORPUSCULAR VOLUME 89.9 fl (80.0-96.0); PLATELET COUNT, AUTOMATED 226 10^3/uL (150-450); RED BLOOD COUNT 4.27 10^6/uL (4.00-5.40); WHITE BLOOD COUNT 11.5 10^3/uL (4.0-10.0)
[2020-03-19 23:50] LABS: TOTAL PROTEIN,RANDOM URINE 15.2 MG/DL (0.0-12.0)
[2020-03-19 23:54] LABS: ALBUMIN 2.3 GM/DL (3.2-5.2); ALT/SGPT 14 U/L (12-78); BILIRUBIN,TOTAL 0.2 MG/DL (0.2-1.0); BLOOD UREA NITROGEN 9 MG/DL (7-18); CALCIUM LEVEL 8.8 MG/DL (8.5-10.1); CARBON DIOXIDE LEVEL 26 MEQ/L (21-32); CHLORIDE LEVEL 106 MEQ/L (98-107); CREATININE FOR GFR 0.71 MG/DL (0.55-1.30); GLOMERULAR FILTRATION RATE > 60.0 (>60); GLUCOSE, FASTING 139 MG/DL (70-100); LDH LACTATE DEHYDROGENASE 166 U/L (84-246); POTASSIUM SERUM 3.9 MEQ/L (3.5-5.1); SODIUM LEVEL 139 MEQ/L (136-145); TOTAL PROTEIN 6.4 GM/DL (6.4-8.2); URIC ACID 4.3 MG/DL (2.6-6.0)
--- NOTE | 2020-03-20 00:44 | HPEPDOC ---
Obstetrical History & Physical General Date of Admission History of Present Illness 39yo at 33+3 weeks EGA. Presents with vague complaint of "not feeling well", uncomfortable. No localized / specific complaint. She is not complaining of severe CANO, visual changes, RUQ pain, sob, cp. Reports +FM. Denies VB/LOF/uctx. PMH: obesity, HSVII, schizoaffective disorder SH: LTCS x 1. course c/b GHTN Past Medical History Allergies Coded Allergies: SEAFOOD (Verified Allergy, Severe, HIVES, DIFFICULTY BREATHING, 08/25/18) DYE'S (COLOR'S NOT IODINATED) (Verified Allergy, Intermediate, HIVES/PRURITIS RED & BLUE DYE, 08/25/18) amitriptyline (Verified Allergy, Intermediate, HIVES... and see comments, 09/28/18) pt states she overdosed on amitriptyline and stopped breathing atenolol (Verified Allergy, Intermediate, hives, 09/28/18) cyclobenzaprine (Verified Allergy, Intermediate, hives, 09/28/18) nortriptyline (Verified Allergy, Intermediate, upset stomach, hives, 09/28/18) risperidone (Verified Allergy, Intermediate, hives, 10/23/18) REPORTS DIZZINESS tramadol (Verified Allergy, Intermediate, hives, 10/23/18) PT REPORTS RECENTLY RECEIVED WITHOUT ISSUE gabapentin (Verified Allergy, Mild, RASH, 10/23/18) ziprasidone (Verified Adverse Reaction, Intermediate, paranoid, 09/28/18) sumatriptan (Verified Adverse Reaction, Mild, pins and needles , 08/30/19) Medications Scheduled Acyclovir (Acyclovir) 800 Mg Tablet, 1 TAB PO 5XD Aspirin (Aspirin) 81 Mg Tab.chew, 1 TAB PO DAILY for pain Cholecalciferol (Vitamin D3) (Vitamin D3) 25 Mcg Tablet, 25 MCG PO DAILY Diphenhydramine HCl (Benadryl) 25 Mg Capsule, 2 CAP PO QPM Vit37/Iron/Folic Acid ([place] Chewable Tablet) 1 Each Tab.chew, 1 TAB PO DAILY Miscellaneous Medications Butalb/Acetaminophen/Caffeine (Kapjsj-Skaezkqk-Vesr 50-325-40) 1 Each Capsule Physical Examination Physical Examination GENERAL: Alert and oriented times three. ABDOMEN: Gravid and non-tender to touch. FETUS: Is vertex (VTX) by sterile vaginal examination (SVE), fetus is vertex (VTX) by Pasha. HEART RATE: Regular rate and rhythm. LUNGS: Clear to auscultation (CTA). EXTREMITIES: No edema. No clonus. Deep tendon reflexes (DTRs) + 2. EFM: Cat I [place]: irreg/rare ctx. Vital Signs/I&O Vital Signs Date Time Temp Pulse Resp B/P (MAP) Pulse Ox O2 Delivery O2 Flow Rate FiO2 03/19/20 22:29 97.7 85 22 148/76 (100) 99 Laboratory Data 24H LABS Laboratory Tests 2 03/19/20 23:00: Urine Random Creatinine 135.0, Urine Random Total Protein 15.2H 03/19/20 23:13: Nucleated Red Blood Cells % (auto) 0.0, Anion Gap 7L, Glomerular Filtration Rate > 60.0, Uric Acid 4.3, Calcium Level 8.8, Total Bilirubin 0.2, Aspartate Amino Transf (AST/SGOT) 10, Alanine Aminotransferase (ALT/SGPT) 14, Alkaline Phosphatase 117, Lactate Dehydrogenase 166, Total Protein 6.4, Albumin 2.3L, Albumin/Globulin Ratio 0.6L CBC/BMP Laboratory Tests 03/19/20 23:13 Assessment/Plan Assessment 39yo at 33+3 weeks. GHTN. No evidence of severe features. BP mildly elevated. Labs wnl. No proteinuria. Plan Third trimester/pre-e precautions reviewed Follow up with 2x/wk APFT. WATSON REED DO Mar 20, 2020 00:44
[2020-03-31] MEDS ORDERED: ASPI81TA26 PO (13:20)
== END 2020-03-20 00:38 | disposition home or self-care (01) ==
LOC: M LDO 22:08
PROVIDERS: ATTEND Obstetrics & Gynecology
DX: O13.3 Gestational [pregnancy-induced] hypertension without significant proteinuria, third trimester (principal); Z3A.33 33 weeks gestation of pregnancy

== ENCOUNTER → 2020-03-22 | Outpatient (CLI) | payer OTHER ==
[~2020-03-22] MED LIST changes: +ASPI81TA26 PO; +OXYC1TAB23 PO
--- NOTE | 2020-03-24 08:55 | REP ---
INDICATION: F/U ANATOMY COMPARISON: 03/06/2020 TECHNIQUE: Transabdominal obstetrical ultrasound with color Doppler evaluation. FINDINGS: Examination demonstrates a single live intrauterine in cephalic presentation. motion is identified by technologist. Placenta is noted anterior and grade 2 without evidence for placenta previa or abruption. Amniotic fluid volume is normal. Cervix appears closed.. Gestational age by LMP 33 weeks 5 days with BENJI 05/05/2020. Gestational age by current measurements 34 weeks 2 days with BENJI 05/01/2020. FHR equals 147 beats per minute. KARLY: 20.3 cm Estimated weight 2321 grams (51stpercentile). Anatomical assessment demonstrates normal structures including cranium, choroid plexus, cavum, facial features, nose/lips, four-chamber heart/left ventricular outflow tract, diaphragm, stomach, kidneys/bladder, and three-vessel cord. IMPRESSION: Single live advanced gestation in cephalic presentation demonstrating appropriate estimated weight and growth. In conjunction with prior examination anatomical assessment is complete and normal. <Electronically signed by Alok Virk > 03/24/20 0823
== END ==
LOC: M WHC 12:31
PROVIDERS: ATTEND Advanced Practice Midwife
DX: O34.211 Maternal care for low transverse scar from previous cesarean delivery (principal); Z3A.33 33 weeks gestation of pregnancy

== ENCOUNTER → 2020-03-31 | Outpatient (REF) | payer OTHER ==
[~2020-03-31] MED LIST changes: -OXYC1TAB23 PO
[2020-03-31 13:49] LABS: HEMOGLOBIN 13.2 g/dl (12.0-15.5); MEAN CORPUSCULAR HEMOGLOBIN 30.8 pg (27.0-33.0); MEAN CORPUSCULAR HGB CONC 33.8 g/dl (32.0-36.5); MEAN CORPUSCULAR VOLUME 91.1 fl (80.0-96.0); PLATELET COUNT, AUTOMATED 197 10^3/uL (150-450); RED BLOOD COUNT 4.28 10^6/uL (4.00-5.40); WHITE BLOOD COUNT 12.1 10^3/uL (4.0-10.0)
[2020-03-31 14:28] LABS: CREATININE,RANDOM URINE 92.4 MG/DL; TOTAL PROTEIN,RANDOM URINE 12.9 MG/DL (0.0-12.0)
[2020-03-31 14:32] LABS: ALBUMIN 2.4 GM/DL (3.2-5.2); ALT/SGPT 13 U/L (12-78); BILIRUBIN,TOTAL 0.2 MG/DL (0.2-1.0); BLOOD UREA NITROGEN 9 MG/DL (7-18); CALCIUM LEVEL 9.1 MG/DL (8.5-10.1); CARBON DIOXIDE LEVEL 29 MEQ/L (21-32); CHLORIDE LEVEL 103 MEQ/L (98-107); CREATININE FOR GFR 0.67 MG/DL (0.55-1.30); GLOMERULAR FILTRATION RATE > 60.0 (>60); GLUCOSE, FASTING 116 MG/DL (70-100); POTASSIUM SERUM 4.4 MEQ/L (3.5-5.1); SODIUM LEVEL 138 MEQ/L (136-145); TOTAL PROTEIN 6.4 GM/DL (6.4-8.2)
== END ==
LOC: M PLALAB 11:26
PROVIDERS: ATTEND Obstetrics & Gynecology
DX: O13.9 Gestational [pregnancy-induced] hypertension without significant proteinuria, unspecified trimester (principal)

== ENCOUNTER 2020-04-04 18:41 | Inpatient (IN) | payer OTHER ==
[~2020-04-04] VITALS: Ht 167.6 cm; Wt 134.9 kg
[2020-04-04] VITALS (9 sets, daily range): BP systolic 139–185; BP diastolic 81–104
[2020-04-04 21:24] LABS: HEMATOCRIT 36.6 % (36.0-47.0); HEMOGLOBIN 12.5 g/dl (12.0-15.5); MEAN CORPUSCULAR HEMOGLOBIN 30.3 pg (27.0-33.0); MEAN CORPUSCULAR HGB CONC 34.2 g/dl (32.0-36.5); MEAN CORPUSCULAR VOLUME 88.8 fl (80.0-96.0); PLATELET COUNT, AUTOMATED 208 10^3/uL (150-450); RED BLOOD COUNT 4.12 10^6/uL (4.00-5.40); WHITE BLOOD COUNT 12.1 10^3/uL (4.0-10.0)
[2020-04-04 21:32] LABS: PROTEIN, URINE AUTO TRACE mg/dL (NEGATIVE)
[2020-04-04 21:58] LABS: ALT/SGPT 13 U/L (12-78); BILIRUBIN,TOTAL 0.2 MG/DL (0.2-1.0); GLOMERULAR FILTRATION RATE > 60.0 (>60); LDH LACTATE DEHYDROGENASE 134 U/L (84-246); URIC ACID 4.7 MG/DL (2.6-6.0)
--- OUTSIDE RECORDS SUMMARY | 2020-04-04 23:23 | CCD ---
Author Author Leanna Tellez Organization Unknown Address [address] [address] Phone Care Team Providers Care Sample Grinder Name Role Phone Bridgette Tellez PCP Allergies, Adverse Reactions, Alerts Concept Allergy Name Reaction Severity Onset Date Status Documentation Date Phone Number Npid Taxonomy Code Taxonomy Desc Author Last Name Author Fi rst Name Concept Type [id number] nkda Active 02/09/2018 RXNORM Problem List Concept Problem Description Status Start Date Created Date Resolv ed Date Snomed Code F43.12 Post-traumatic stress disorder, chronic Active 10/15/2017 10/15/2017 F41.1 Generalized Anxiety Disorder Active 10/15/2017 10/15/2017 F14.20 Stimulant Use Disorder. Severe: Cocaine Active 10/15/2017 10/15/2017 Medications Rx Norm Medication Route Route Concept Start Date Stop Date Dosage Narciso quency Duration Formula Strength Dosage Form Dosage Form Code Dosage Description Medication Id Account Npid Author First Name Author Last Name Taxonomy Code Taxonomy Desc Phone Number [id number] Prozac by mouth [id number] 04/27/2019 once a day 30 20 mg capsule 07780 [id number] Bridgette Tellze [id number] Nurse Practitioner [phone] Social History Social History Element Description Concept Effective Date Smoking Status Unknown if ever smoked [id number] Immunizations No Data in Section Vital Signs Encounter Date Height Ins Weight Lbs Bmi Bp Systolic Bp Diastoli c Oxygen Saturation Respiration Rate Pulse Rate Body Temp Head Circumference Heigh t Lying 03/21/2020 0.00 0.00 0.00 0 0 0.00 0 0 0.00 0.0 0.0 0 Procedures Date Concept Id Description Targeted Site Concept Targeted Site Concept Type 03/21/2020 65449-98 [facility] Telemed E/M Lvl 3--Est pt CPT 03/21/2020 11469-07-AD Psychotherapy ADD ON - 30 Minutes CPT Patient has no history of implantable de vices Encounters Encounter Start Date End Date Encounter Type Description Diagnosis Di agnosis Desc Location Author First Name Author Last Name Npid Taxonomy Cod e Taxonomy Desc Phone Number Location Addr1 Location Addr2 Location [facility] Location Sta te Location [facility] [id number] 03/21/2020 03/21/2020 31949-22 [facility] Telemed E/M Lvl 3--Est p t F43.12 Post- traumatic stress disorder, chronic [facility] Bridgette [id number] Nurse Practitioner [phone] [address] [address] Plan of Treatment No Data in Section Lab Results No Data in Section Instructions No Data in Section Functional Cognitive Status No Data in Section Insurance Providers Insurance Id Policy Effective Date Policy Thru Date [employer] elena [id number] [address]
--- OUTSIDE RECORDS SUMMARY | 2020-04-04 23:23 | CCD ---
Author Author [facility] Organization [facility] Address Unknown Phone Unavailable Care Team Providers Care Vice President Marketing & Development Name Role Phone Radha Restrepo Unavailable PROBLEMS Type Condition ICD9-CM Code VIQ94-LY Code Onset Dates Condition S tatus SNOMED Code Notes Problem Contusion of upper arm 923.03 Active 36987665 Problem Asthma, unspecified, unspecified status 493.90 Active 80572137 Problem Obesity, unspecified 278.00 Active 725652527 Problem Contusion of abdominal wall 922.2 Active 3790 7001 Problem Spontaneous ecchymoses 782.7 Active 792719743 Problem Low vision, one eye, not otherwise specified 369.70 Active 59389808 Problem Fibrocystic breast disease 610.1 Active 62013 007 Problem History of cervical dysplasia V13.22 Active 47 4352727 Problem Intestinal infections due to clostridium difficile 008.45 Active 474826173 Problem Candidal vaginitis 112.1 Active 45172798 Problem Decreased hearing 389.9 Active 238516242 Problem Abscess 682.9 Active 657759229 Problem Lump or mass in breast 611.72 Active 45178127 Problem Sebaceous cyst 706.2 Active 316024435 Problem Hx of ovarian cyst V13.29 Active 62232874 Problem Hx of infertility V13.29 Active Problem Other screening breast examination V76.19 Activ e 78098403 Problem Routine gynecological examination V72.31 Active 843497384607268 Problem Pelvic pain in female 625.9 Active 377788054 Problem Obesity complicating in second trimester O99.212 Active 067766160956 Problem Elevated blood pressure reading without diagnosi s of hypertension 796.2 Active 132821908 Problem Supervision of other normal Z34.80 Ac tive 756244192 Problem Contusion of hand(s) 923.20 Active 1895025 Problem Diarrhea 787.91 Active 70817806 Problem GERD (gastroesophageal reflux disease) 530.81 A ctive 414772582 Problem Myalgia M79.1 Active 35899714 Problem Elevated C-reactive protein (CRP) R79.82 Active 980348582032348 Problem Fibromyalgia M79.7 Active 942735037 ALLERGIES Allergen (clinical drug ingredient) Drug/Non Drug Allergy do cumented on EMR Reaction Allergy Type Onset Date Status seafood, fish Angioedema Non Drug Allergy Activ e cyclobenzaprine Cyclobenzaprine HCl(ND Code:[address]-10) Hives Drug Allergy Active tramadol Tramadol HCl(NDC Code:[address]-44) Hives Drug Aller gy Active Geodon Paranoid Non Drug Allergy Active Sea Food Anaphylaxis Non Drug Allergy Active atenolol 100 Hives Drug Allergy Active ziprasidone Ziprasidone HCl([facility] Code:[address]-55) Hives Drug A llergy Active nortriptyline Nortriptyline HCl(ND Code:[address]-04) Hives Dr ug Allergy Active Flexeril Hives Drug Allergy Active risperidone Risperidone(NDC Code:[address]-94) Hives Drug Aller gy Active rispererdol dizzy Non Drug Allergy Active tramadol Ultram(ND Code:[address]-97) Hives Drug Allergy Active amitriptyline Amitriptyline HCl(NDC Code:[address]-86) Hives Dr ug Allergy Active gabapentin Gabapentin([facility] Code:[address]-83) Hives Drug Allergy Active ENCOUNTERS from 1980 to 2020-03-21 Encounter Location Date Provider Diagnosis [facility] [address] [place] [address] Mar, Radha Kaye IMMUNIZATIONS No Information SOCIAL HISTORY Tobacco Use: Social History Observation Description Date Details (start date - stop date) Former Smoker Sex Assigned At : Social History Observation Description Sex Assigned At Unknown Tobacco Use: Question Answer Notes Are you a: former smoker REASON FOR REFERRAL No Information VITAL SIGNS No information MEDICATIONS Medication SIG (Take, Route, Frequency, Duration) Notes Start Da te End Date Status Lidocaine 4 % 1 application as needed Externally Not-Taking Methocarbamol 750 MG 1 tablet Orally Daily as needed Not-Taking Flonase Allergy Relief 50 MCG/ACT 1 spray in each nostril Nasall y Once a day Active Michelle Maintena 400 MG 2 ml Intramuscular monthly Not-Taking Zyrtec Allergy 10 MG 1 tablet Orally Once a day Not-Taking Meloxicam 15 MG 1 tablet Orally Once a day for 30 day(s) 2 3 Apr, 2016 Not-Taking Celebrex 200 MG TAKE ONE CAPSULE BY MOUTH ONCE DAILY Not-Taking Prazosin HCl 1 MG 1 capsule at bedtime Orally Daily Not-Taking Se-Justa 19 29-1 MG 1 tablet Orally Once a day Not-Taking Docusate Sodium 100 MG 1 capsule Orally twice daily Not-Taking Vitamin D (Ergocalciferol) 49040 UNIT 1 capsule Orally once weekly Not-Taking Metronidazole 500 MG 1 tablet Orally Twice a day for 7 days Mar, Active Naproxen 500 mg 1 tab(s) Orally every 12 hrs as needed (Majak) Not-Taking Fluoxetine HCl 20 MG 1 capsule Orally Once a day Not-Taking Aspirin 81 81 MG 1 tablet Orally Once a day Active Vitamin D3 25 MCG (1000 UT) 1 tablet Orally Once a day Active Lisinopril 5 MG Orally Not-Takin g Benadryl Allergy 25 MG 1 tablet at bedtime as needed Orally Once a da y Active Loratadine 10 MG 1 tablet Orally Once a day Not-Taking PROzac 20 MG 1 capsule in the morning Orally Once a day Not-Taking Verapamil HCl 240 MG (CO) 1 tablet Orally once a day Not-Taking Ventolin HFA 90 MCG/ACT 2 puffs as needed Inhalation every 4 hours as needed for 1 month Aug, Not-Taking Zonisamide 50 MG 1 capsule Orally daily (Alec) for 30 day(s) Not-Taking Omeprazole 20 MG 1 capsule by mouth once daily Not-Taking Esgic 50-325-40 MG 1 capsule as needed for head ache/migraine Orally every 4 to 6 hours Jan, Active Valtrex 500 MG 1 tablet Orally Once a day Active Ibuprofen 600 MG 1 tablet with food or milk as needed Orally Chasity ly as needed Not-Taking - 1 tablet Orally Once a day for 30 day(s) Active Excedrin Migraine 250-250-65 MG 2 tablets Orally Once a day for 30 da y(s) Not-Taking CPAP mask CPAP supplies as directed with CPAP CPAP at bedtime fo r 30 July, Not-Taking Pregabalin 75 MG 1 capsule Orally Once a day Not-Taking CPAP Machine CPAP nasal every night Not-Taking EpiPen 0.3 MG/0.3ML Injection Activ e PROCEDURES No Information RESULTS No Results REASON FOR VISIT pain MEDICAL (GENERAL) HISTORY Type Description Date Medical History Schizoaffective Disorder Medical History Vitamin D Deficiency Medical History Hearing Loss unknown etiolog y est w/ audiology and ENT w/ Dr. Ribera, wears hearing aid Medical History Obstructive Sleep Apnea use CPAP Medical History Asthma Medical History hx ruptured disc Medical History hx pleurisy Medical History hx shunt placed in head at due to hydrocephalus Medical History hx tubes in ears b/l at Medical History hx thyroid nodules being followed by end ocrinology Medical History migraines follows w/ Ericka Tate NP Medical History C. diff colitis 03/15 Medical History freq abscess and h/o MRSA Medical History hx ovarian cysts Medical History hx moderate cervical dysplasia (LISA I-II ) w/LEEP Medical History infertility issues Medical History fibrocystic breast disease Surgical History plantar facitis 2013 Surgical History shunt in the brain/ear tubes 1981 Surgical History laparscopic exploratory 2013 Surgical History Hospitalization History mental health admissions last in 5 Goals Section No Information Health Concerns No Information MEDICAL EQUIPMENT No Information MENTAL STATUS No Information FUNCTIONAL STATUS No Information ASSESSMENTS No Information PLAN OF TREATMENT Next Appt Details Provider Name:Savanna Smith, 2020-03-23 10:40:00 AM, [address] [place] [address], [phone], Provider Name:Sadi Zaragoza, 12:45:00 AM, [address] [place] [address], [phone], Provider Name:Radha Restrepo, 2020-04 07:30:00 AM, [address] [place] [address], [phone], Provider Name:Sadi Zaragoza, 07:30:00 AM, [address] [place] [address], [phone], Provider Name:Sadi Zaragoza, 11:40:00 AM, [address] [place], [phone], Provider Name:Sadi Zaragoza, 11:40:00 AM, [address] [place], [address], Insurance Providers Payer Name Payer Address Payer Phone Insured Name Patient Relati onship to Insured Coverage Start Date Coverage End Date [facility] [address] [facility] [address] CHEN PETERS self
--- OUTSIDE RECORDS SUMMARY | 2020-04-04 23:23 | CCD ---
Author Author [facility] Organization [facility] Address Unknown Phone Unavailable Care Team Providers Care Senior Technical Program Manager Name Role Phone Amy Arriaga Unavailable PROBLEMS Type Condition ICD9-CM Code IEQ40-QY Code Onset Dates Condition S tatus SNOMED Code Notes Problem Asthma, unspecified, unspecified status 493.90 Active 51911714 Problem Contusion of abdominal wall 922.2 Active 3790 7001 Problem Contusion of upper arm 923.03 Active 58848406 Problem Low vision, one eye, not otherwise specified 369.70 Active 74372037 Problem Obesity, unspecified 278.00 Active 330262310 Problem Contusion of hand(s) 923.20 Active 4837640 Problem Spontaneous ecchymoses 782.7 Active 814335720 Problem Other screening breast examination V76.19 Activ e 75506161 Problem Fibrocystic breast disease 610.1 Active 04653 007 Problem Abscess 682.9 Active 888025348 Problem Intestinal infections due to clostridium difficile 008.45 Active 894702132 Problem Sebaceous cyst 706.2 Active 847326884 Problem Decreased hearing 389.9 Active 410790646 Problem Hx of infertility V13.29 Active Problem Lump or mass in breast 611.72 Active 70398127 Problem History of cervical dysplasia V13.22 Active 47 5432131 Problem Hx of ovarian cyst V13.29 Active 07908433 Problem Routine gynecological examination V72.31 Active 703372376820769 Problem Pelvic pain in female 625.9 Active 642632682 Problem GERD (gastroesophageal reflux disease) 530.81 A ctive 487338670 Problem Obesity complicating in second trimester O99.212 Active 326988548871 Problem Diarrhea 787.91 Active 75821188 Problem Obesity complicating in third trimester O99.21 3 Active Problem Elevated blood pressure reading without diagnosi s of hypertension 796.2 Active 967295169 Problem Candidal vaginitis 112.1 Active 73043688 Problem Myalgia M79.1 Active 84942603 Problem Elevated C-reactive protein (CRP) R79.82 Active 103769355480733 Problem Fibromyalgia M79.7 Active 647921740 Problem Supervision of other normal Z34.80 Ac tive 468037875 ALLERGIES Allergen (clinical drug ingredient) Drug/Non Drug Allergy do cumented on EMR Reaction Allergy Type Onset Date Status seafood, fish Angioedema Non Drug Allergy Activ e cyclobenzaprine Cyclobenzaprine HCl(ND Code:[address]-88) Hives Drug Allergy Active tramadol Tramadol HCl(ND Code:[address]-54) Hives Drug Aller gy Active Geodon Paranoid Non Drug Allergy Active Sea Food Anaphylaxis Non Drug Allergy Active atenolol 100 Hives Drug Allergy Active ziprasidone Ziprasidone HCl(ND Code:[address]-77) Hives Drug A llergy Active nortriptyline Nortriptyline HCl(ND Code:[address]-50) Hives Dr ug Allergy Active Flexeril Hives Drug Allergy Active risperidone Risperidone(NDC Code:[address]-30) Hives Drug Aller gy Active rispererdol dizzy Non Drug Allergy Active tramadol Ultram(ND Code:[address]-32) Hives Drug Allergy Active amitriptyline Amitriptyline HCl(NDC Code:[address]-47) Hives Dr ug Allergy Active gabapentin Gabapentin(ND Code:[address]-46) Hives Drug Allergy Active ENCOUNTERS from 1980 to 2020-03-26 Encounter Location Date Provider Diagnosis [facility] [place] [address] Mar, [facility] Maternal care due to low transverse uterine scar from previous delivery O34.211 IMMUNIZATIONS No Information SOCIAL HISTORY Tobacco Use: Social History Observation Description Date Details (start date - stop date) Former Smoker Sex Assigned At : Social History Observation Description Sex Assigned At Unknown Tobacco Use: Question Answer Notes Are you a: former smoker REASON FOR REFERRAL No Information VITAL SIGNS Weight 292 lbs 14 Mar, 2020 Height 66 in Mar, BMI 47.13 kg/m2 Mar, Blood pressure systolic 128 mm Hg Mar, Blood pressure diastolic 78 mm Hg Mar, MEDICATIONS Medication SIG (Take, Route, Frequency, Duration) Notes Start Da te End Date Status Michelle Maintena 400 MG 2 ml Intramuscular monthly Not-Taking Celebrex 200 MG TAKE ONE CAPSULE BY MOUTH ONCE DAILY Not-Taking Benadryl Allergy 25 MG 1 tablet at bedtime as needed Orally Once a da y Active Esgic 50-325-40 MG 1 capsule as needed for head ache/migraine Orally every 4 to 6 hours Jan, Active Omeprazole 20 MG 1 capsule by mouth once daily Not-Taking Verapamil HCl 240 MG (CO) 1 tablet Orally once a day Not-Taking Loratadine 10 MG 1 tablet Orally Once a day Not-Taking CPAP Machine CPAP nasal every night Not-Taking Aspirin 81 81 MG 1 tablet Orally Once a day Active EpiPen 0.3 MG/0.3ML Injection Activ e Flonase Allergy Relief 50 MCG/ACT 1 spray in each nostril Nasall y Once a day Active Ventolin HFA 90 MCG/ACT 2 puffs as needed Inhalation every 4 hours as needed for 1 month Aug, Not-Taking Metronidazole 500 MG 1 tablet Orally Twice a day for 7 days Mar, Not-Taking Vitamin D3 25 MCG (1000 UT) 1 tablet Orally Once a day Active - 1 tablet Orally Once a day for 30 day(s) Active Docusate Sodium 100 MG 1 capsule Orally twice daily Not-Taking Prazosin HCl 1 MG 1 capsule at bedtime Orally Daily Not-Taking CPAP mask CPAP supplies as directed with CPAP CPAP at bedtime July, Not-Taking Vitamin D (Ergocalciferol) 14152 UNIT 1 capsule Orally once weekly Not-Taking Zyrtec Allergy 10 MG 1 tablet Orally Once a day Not-Taking Valtrex 500 MG 1 tablet Orally Twice daily for 30 days Active Methocarbamol 750 MG 1 tablet Orally Daily as needed Not-Taking Zonisamide 50 MG 1 capsule Orally daily (Alec) for 30 day(s) Not-Taking Naproxen 500 mg 1 tab(s) Orally every 12 hrs as needed (Majak) Not-Taking Lisinopril 5 MG Orally Not-Takin g PROzac 20 MG 1 capsule in the morning Orally Once a day Not-Taking Meloxicam 15 MG 1 tablet Orally Once a day for 30 day(s) 2 3 Apr, 2016 Not-Taking Fluoxetine HCl 20 MG 1 capsule Orally Once a day Not-Taking Pregabalin 75 MG 1 capsule Orally Once a day Not-Taking Ibuprofen 600 MG 1 tablet with food or milk as needed Orally Chasity ly as needed Not-Taking Excedrin Migraine 250-250-65 MG 2 tablets Orally Once a day for 30 da y(s) Not-Taking Lidocaine 4 % 1 application as needed Externally Not-Taking Se- 19 29-1 MG 1 tablet Orally Once a day Not-Taking PROCEDURES from 1980 to 2020-03-26 Procedure Date Ordered Result Body Site non-stress test 2020-03-16 N/A RESULTS No Results REASON FOR VISIT 1 WEEK PN/NST MEDICAL (GENERAL) HISTORY Type Description Date Medical [...] Surgical History shunt in the brain/ear tubes 1980 Surgical History laparscopic exploratory 2013 Surgical History Hospitalization History mental health admissions last in 201 5 Goals Section No Information Health Concerns No Information MEDICAL EQUIPMENT No Information MENTAL STATUS No Information FUNCTIONAL STATUS No Information ASSESSMENTS Encounter Date Diagnosis Assessment Notes Treatment Notes Treatm ent Clinical Notes Mar, Maternal care due to low tra nsverse uterine scar from previous delivery (ICD-10 - O34.211) PLAN OF TREATMENT Medication Medication Name Sig Start Date Stop Date Valtrex 500 MG 1 tablet Orally Twice daily for 30 days Next Appt Details 1 Week Reason:COB Provider Name:Radha Restrepo, 2020-03 11:20:00 AM, [address] [place] [address], [phone], Provider Name:Amy Arriaga, 2020-04-11 0 9:30:00 AM, [address] [place] [address], [phone], Provider Name:Radha Restrepo, 2020-04 07:30:00 AM, [address] [place] [address], [phone], Provider Name:Amy Arriaga, 2020-04-14 0 7:30:00 AM, [address] [place] [address], [phone], Provider Name:Amy Arriaga, 2020-05-01 0 9:00:00 AM, [address] [place] [address], [phone], Provider Name:Amy Arriaga, 2020-06-13 1 1:40:00 AM, [address] [place] [address], [phone], Follow Up:1 WeekCOB Insurance Providers Payer Name Payer Address Payer Phone Insured Name Patient Relati onship to Insured Coverage Start Date Coverage End Date [facility] [address] [facility] [phone] CHEN PETERS self
--- OUTSIDE RECORDS SUMMARY | 2020-04-04 23:23 | CCD ---
Author Author Leanna Michelle Organization Unknown Address [address] [address] Phone Care Team Providers Care Window Tinter Name Role Phone Ericka Michelle PCP Allergies, Adverse Reactions, Alerts Concept Allergy Name Reaction Severity Onset Date Status Documentation Date Phone Number Npid Taxonomy Code Taxonomy Desc Author Last Name Author Ba rst Name Concept Type 487769 nkda Active 02/09/2018 RXNORM Problem List Concept [...] Name Taxonomy Code Taxonomy Desc Phone Number [phone] Prozac by mouth M93432 04/27/2019 once a day 30 20 mg capsule 82013 [id number] [phone] Bridgette Tellez [id number] Nurse Practitioner [phone] Social History Social History Element Description Concept Effective Date Smoking Status Unknown if ever smoked [id number] 26979241 Immunizations No Data in Section Vital Signs No Data in Section Procedures Date Concept Id Description Targeted Site Concept Targeted Site Concept Type 03/24/2020 96707 Extended Individual Psychotherapy - 45 min CPT Patient has no history of implantable de vices Encounters Encounter Start Date End Date Encounter Type Description Diagnosis Di agnosis Desc Location Author First Name Author Last Name Npid Taxonomy Cod e Taxonomy Desc Phone Number Location Addr1 Location Addr2 Location [facility] Location [facility] Location Zip [id number] 03/24/2020 03/24/2020 15736 Extended Individual Psych otherapy - 45 min F43.12 Post-traumatic stress disorder, chronic [facility] Miguel Angel Ericka [phone] [id number] Mental Health [phone] [address] [address] Plan of Treatment No Data in Section Lab Results No Data in Section Instructions No Data in Section Insurance Providers Insurance Id Policy Effective Date Policy Thru Date Company N elena [id number] [address]
--- OUTSIDE RECORDS SUMMARY | 2020-04-04 23:23 | CCD ---
Author Author Leanna Michelle Organization Unknown Address [address] [address] Phone Care Team Providers Care Head Of Marketing Name Role Phone Ericka Michelle PCP Allergies, Adverse Reactions, Alerts Concept Allergy Name Reaction Severity Onset Date Status Documentation Date Phone Number Npid Taxonomy Code Taxonomy Desc Author Last Name Author Fi rst Name Concept Type 938545 nkda Active 02/09/2018 RXNORM Problem List Concept [...] Name Taxonomy Code Taxonomy Desc Phone Number [phone] Prozac by mouth D27012 04/27/2019 once a day 30 20 mg capsule 69954 [id number] [id number] Bridgette Tellez [id number] Nurse Practitioner [phone] Social History Social History Element Description Concept Effective Date Smoking Status Unknown if ever smoked [id number] 07242749 Immunizations No Data in Section Vital Signs No Data in Section Procedures Date Concept Id Description Targeted Site Concept Targeted Site Concept Type 03/17/2020 80517 Extended Individual Psychotherapy - 45 min CPT Patient has no history of implantable de vices Encounters Encounter Start Date End Date Encounter Type Description Diagnosis Di agnosis Desc Location Author First Name Author Last Name Npid Taxonomy Cod e Taxonomy Desc Phone Number Location Addr1 Location Addr2 Location [facility] Location [facility] Location Zip [id number] 03/17/2020 03/17/2020 05402 Extended Individual Psych otherapy - 45 min F43.12 Post-traumatic stress disorder, chronic [facility] Miguel Angel Ericka [id number] [id number] Mental Health [phone] [address] [address] Plan of Treatment No Data in Section Lab Results No Data in Section Instructions No Data in Section Insurance Providers Insurance Id Policy Effective Date Policy Thru Date Company N elena [id number] [address]
--- OUTSIDE RECORDS SUMMARY | 2020-04-04 23:23 | CCD ---
Author Author [facility] Organization [facility] Address Unknown Phone Unavailable Care Team Providers Care Bottling Line Attendant Name Role Phone Savanna Smith Unavailable PROBLEMS Type Condition ICD9-CM Code EQU20-NF Code Onset Dates Condition S tatus SNOMED Code Notes Problem Contusion of upper arm 923.03 Active 04368692 Problem Asthma, unspecified, unspecified status 493.90 Active 81855054 Problem Obesity, unspecified 278.00 Active 420556681 Problem Contusion of abdominal wall 922.2 Active 3790 7001 Problem Spontaneous ecchymoses 782.7 Active 801867907 Problem Low vision, one eye, not otherwise specified 369.70 Active 83879267 Problem Fibrocystic breast disease 610.1 Active 02469 007 Problem History of cervical dysplasia V13.22 Active 47 8296486 Problem Intestinal infections due to clostridium difficile 008.45 Active 927969786 Problem Candidal vaginitis 112.1 Active 58070330 Problem Decreased hearing 389.9 Active 029822464 Problem Abscess 682.9 Active 581975021 Problem Lump or mass in breast 611.72 Active 10871401 Problem Sebaceous cyst 706.2 Active 851877661 Problem Hx of ovarian cyst V13.29 Active 32107463 Problem Hx of infertility V13.29 Active Problem Other screening breast examination V76.19 Activ e 75954376 Problem Routine gynecological examination V72.31 Active 892410027361858 Problem Pelvic pain in female 625.9 Active 218676246 Problem Obesity complicating in second trimester O99.212 Active 326756716033 Problem Elevated blood pressure reading without diagnosi s of hypertension 796.2 Active 871653080 Problem Supervision of other normal Z34.80 Ac tive 248416783 Problem Contusion of hand(s) 923.20 Active 7610112 Problem Diarrhea 787.91 Active 20601792 Problem GERD (gastroesophageal reflux disease) 530.81 A ctive 823265470 Problem Myalgia M79.1 Active 38550579 Problem Elevated C-reactive protein (CRP) R79.82 Active 442910475909569 Problem Fibromyalgia M79.7 Active 029789257 ALLERGIES Allergen (clinical drug ingredient) Drug/Non Drug Allergy do cumented on EMR Reaction Allergy Type Onset Date Status seafood, fish Angioedema Non Drug Allergy Activ e cyclobenzaprine Cyclobenzaprine HCl(ND Code:[address]-19) Hives Drug Allergy Active tramadol Tramadol HCl(NDC Code:[address]-25) Hives Drug Aller gy Active Geodon Paranoid Non Drug Allergy Active Sea Food Anaphylaxis Non Drug Allergy Active atenolol 100 Hives Drug Allergy Active ziprasidone Ziprasidone HCl([facility] Code:[address]-97) Hives Drug A llergy Active nortriptyline Nortriptyline HCl(ND Code:[address]-27) Hives Dr ug Allergy Active Flexeril Hives Drug Allergy Active risperidone Risperidone(NDC Code:[address]-24) Hives Drug Aller gy Active rispererdol dizzy Non Drug Allergy Active tramadol Ultram(ND Code:[address]-54) Hives Drug Allergy Active amitriptyline Amitriptyline HCl(NDC Code:[address]-70) Hives Dr ug Allergy Active gabapentin Gabapentin(ND Code:[address]-32) Hives Drug Allergy Active ENCOUNTERS from 1980 to 2020-03-11 Encounter Location Date Provider Diagnosis [facility] [address] [place] [phone] Mar, Savanna [facility] Maternal care due to low transverse uterine scar from previous delivery O34.211 ; 31 weeks gestation of Z3A.31 ; Decreased movement during in third trimester, antepartum O36.8130 and Advanced maternal age, primigravida in third trimester, antepartum O09.513 IMMUNIZATIONS No Information SOCIAL HISTORY Tobacco Use: Social History Observation Description Date Details (start date - stop date) Former Smoker Sex Assigned At : Social History Observation Description Sex Assigned At Unknown Tobacco Use: Question Answer Notes Are you a: former smoker REASON FOR REFERRAL No Information VITAL SIGNS Weight 290 lbs Mar, Weight-kg 131.54 kg Mar, Height 66 in Mar, BMI 46.807 kg/m2 Mar, Blood pressure systolic 140 mm Hg Mar, Blood pressure diastolic 98 mm Hg Mar, MEDICATIONS Medication SIG (Take, Route, Frequency, Duration) Notes Start Da te End Date Status Flonase Allergy Relief 50 MCG/ACT 1 spray in each nostril Nasall y Once a day Active Aspirin 81 81 MG 1 tablet Orally Once a day Active Lidocaine 4 % 1 application as needed Externally Not-Taking Loratadine 10 MG 1 tablet Orally Once a day Not-Taking Naproxen 500 mg 1 tab(s) Orally every 12 hrs as needed ([place]ak) Not-Taking Ibuprofen 600 MG 1 tablet with food or milk as needed Orally Chasity ly as needed Not-Taking Verapamil HCl 240 MG (CO) 1 tablet Orally once a day Not-Taking PROzac 20 MG 1 capsule in the morning Orally Once a day Not-Taking Abilify Maintena 400 MG 2 ml Intramuscular monthly Not-Taking Zonisamide 50 MG 1 capsule Orally daily (Alec) for 30 day(s) Not-Taking Metronidazole 500 MG 1 tablet Orally Twice a day for 7 days Mar, Active Celebrex 200 MG TAKE ONE CAPSULE BY MOUTH ONCE DAILY Not-Taking Prazosin HCl 1 MG 1 capsule at bedtime Orally Daily Not-Taking Omeprazole 20 MG 1 capsule by mouth once daily Not-Taking Se-Justa 19 29-1 MG 1 tablet Orally Once a day Not-Taking Benadryl Allergy 25 MG 1 tablet at bedtime as needed Orally Once a da y Active CPAP mask CPAP supplies as directed with CPAP CPAP at bedtime fo r 30 July, Not-Taking - 1 tablet Orally Once a day for 30 day(s) Active Vitamin D (Ergocalciferol) 72443 UNIT 1 capsule Orally once weekly Not-Taking Docusate Sodium 100 MG 1 capsule Orally twice daily Not-Taking Excedrin Migraine 250-250-65 MG 2 tablets Orally Once a day for 30 da y(s) Not-Taking Meloxicam 15 MG 1 tablet Orally Once a day for 30 day(s) 2 3 Apr, 2016 Not-Taking Fluoxetine HCl 20 MG 1 capsule Orally Once a day Not-Taking Zyrtec Allergy 10 MG 1 tablet Orally Once a day Not-Taking Methocarbamol 750 MG 1 tablet Orally Daily as needed Not-Taking Pregabalin 75 MG 1 capsule Orally Once a day Not-Taking Esgic 50-325-40 MG 1 capsule as needed for head ache/migraine Orally every 4 to 6 hours Jan, Active CPAP Machine CPAP nasal every night Not-Taking Valtrex 500 MG 1 tablet Orally Once a day Active EpiPen 0.3 MG/0.3ML Injection Activ e Ventolin HFA 90 MCG/ACT 2 puffs as needed Inhalation every 4 hours as needed for 1 month Aug, Not-Taking Lisinopril 5 MG Orally Not-Takin g Vitamin D3 25 MCG (1000 UT) 1 tablet Orally Once a day Active PROCEDURES from 1980 to 2020-03-11 Procedure Date Ordered Result Body Site non-stress test 2020-03-08 N/A RESULTS Component Value Reference Range CBC - Complete Blood Count Reviewed date:03/09/2020 10:23:27 Interpretation: Performing Lab:[facility]ly [facility], [facility] [address] [address] , ,[place] [address] WHITE BLOOD COUNT 12.0 4.0-10.0 RED BLOOD COUNT 4.37 4.00-5.40 HEMOGLOBIN 13.3 12.0-15.5 HEMATOCRIT 40.0 36.0-47.0 MEAN CORPUSCULAR VOLUME 91.5 80.0-96.0 MEAN CORPUSCULAR HEMOGLOBIN 30.4 27.0-33.0 MEAN CORPUSCULAR HGB CONC 33.3 32.0-36.5 RED CELL DISTRIBUTION WIDTH 13.5 11.5-14.5 PLATELET COUNT, AUTOMATED 214 150-450 Pre Eclampsia Profile Reviewed date:03/09/2020 10:23:00 Interpretation: Performing Lab:[facility], [facility] [address] [address] , ,[place] [address] CREATININE FOR GFR 0.62 0.55-1.30 GLOMERULAR FILTRATION RATE > 60.0 >60 AST/SGOT 7 7-37 ALT/SGPT 16 12-78 LDH LACTATE DEHYDROGENASE 145 84-246 BILIRUBIN,TOTAL 0.2 0.2-1.0 URIC ACID 3.6 2.6-6.0 CREATININE,RANDOM URINE Reviewed date:03/09/2020 10:23:16 Interpretation: Performing Lab:[facility] [address] [address] , ,[place] [address] CREATININE,RANDOM URINE 141.0 TOTAL PROTEIN,RANDOM URINE Reviewed date:03/09/2020 10:24:52 Interpretation: Performing Lab:[facility] [address] [address] , ,[place] [address] TOTAL PROTEIN,RANDOM URINE 17.2 0.0-12.0 REASON FOR VISIT 4 WK PN MEDICAL (GENERAL) HISTORY Type Description Date Medical [...] scar from previous delivery (ICD-10 - O34.211) Mar, 31 weeks gestation of (ICD-10 - Z3A.31 ) Mar, Decreased movement dur ing in third trimester, antepartum (ICD-10 - O36.8130) Mar, Advanced maternal age, primi in third trimester, antepartum (ICD-10 - O09.513) PLAN OF TREATMENT Medication Medication Name Sig Start Date Stop Date Metronidazole 500 MG 1 tablet Orally Twice a day for 7 days 2020 Treatment Notes Test Name Order Date WWBC OBS FOLLOW UP OR REPEAT 2020-03-11 Next Appt Details 1 Week Reason: Provider Name:Amy Arriaga, 2020-03-16 0 9:00:00 AM, [address] [place] [address], [phone], Provider Name:Sadi Zaragoza, 12:45:00 AM, [address] [place] [address], [phone], Provider Name:Radha Restrepo, 2020-04 07:30:00 AM, [address] [place] [address], [phone], Provider Name:Sadi Zaragoza, 07:30:00 AM, [address] [place] [address], [phone], Provider Name:Sadi Zaragoza, 11:40:00 AM, [address] [place] [address], [phone], Provider Name:Sadi Zaragoza, 11:40:00 AM, [address] [place] [address], [phone], Follow Up:1 WeekPrenatal Insurance Providers Payer Name Payer Address Payer Phone Insured Name Patient Relati onship to Insured Coverage Start Date Coverage End Date [facility] COMMUNITY PLAN [facility] [address] [facility] [address] CHEN PETERS self
--- OUTSIDE RECORDS SUMMARY | 2020-04-04 23:23 | CCD ---
Author Author [facility] Organization [facility] Address Unknown Phone Unavailable Care Team Providers Care Nutrition Educator Name Role Phone Savanna Smith Unavailable PROBLEMS Type Condition ICD9-CM Code CSH22-PU Code Onset Dates Condition S tatus SNOMED Code Notes Problem Contusion of upper arm 923.03 Active 10550740 Problem Asthma, unspecified, unspecified status 493.90 Active 18429015 Problem Obesity, unspecified 278.00 Active 654671865 Problem Contusion of abdominal wall 922.2 Active 3790 7001 Problem Spontaneous ecchymoses 782.7 Active 633788719 Problem Low vision, one eye, not otherwise specified 369.70 Active 28857620 Problem Fibrocystic breast disease 610.1 Active 53491 007 Problem History of cervical dysplasia V13.22 Active 47 2792591 Problem Intestinal infections due to clostridium difficile 008.45 Active 485435269 Problem Candidal vaginitis 112.1 Active 91617103 Problem Decreased hearing 389.9 Active 704796451 Problem Abscess 682.9 Active 159538849 Problem Lump or mass in breast 611.72 Active 87514358 Problem Sebaceous cyst 706.2 Active 968769551 Problem Hx of ovarian cyst V13.29 Active 36976030 Problem Hx of infertility V13.29 Active Problem Other screening breast examination V76.19 Activ e 98064230 Problem Routine gynecological examination V72.31 Active 424034009719642 Problem Pelvic pain in female 625.9 Active 402621963 Problem Obesity complicating in second trimester O99.212 Active 630195052018 Problem Elevated blood pressure reading without diagnosi s of hypertension 796.2 Active 293246834 Problem Supervision of other normal Z34.80 Ac tive 264517537 Problem Contusion of hand(s) 923.20 Active 7199918 Problem Diarrhea 787.91 Active 38418158 Problem GERD (gastroesophageal reflux disease) 530.81 A ctive 105773969 Problem Myalgia M79.1 Active 84876099 Problem Elevated C-reactive protein (CRP) R79.82 Active 322800904479336 Problem Fibromyalgia M79.7 Active 412847980 ALLERGIES Allergen (clinical drug ingredient) Drug/Non Drug Allergy do cumented on EMR Reaction Allergy Type Onset Date Status seafood, fish Angioedema Non Drug Allergy Activ e cyclobenzaprine Cyclobenzaprine HCl(ND Code:[address]-15) Hives Drug Allergy Active tramadol Tramadol HCl(NDC Code:[address]-74) Hives Drug Aller gy Active Geodon Paranoid Non Drug Allergy Active Sea Food Anaphylaxis Non Drug Allergy Active atenolol 100 Hives Drug Allergy Active ziprasidone Ziprasidone HCl([facility] Code:[address]-91) Hives Drug A llergy Active nortriptyline Nortriptyline HCl(ND Code:[address]-59) Hives Dr ug Allergy Active Flexeril Hives Drug Allergy Active risperidone Risperidone(NDC Code:[address]-27) Hives Drug Aller gy Active rispererdol dizzy Non Drug Allergy Active tramadol Ultram([facility] Code:[address]-34) Hives Drug Allergy Active amitriptyline Amitriptyline HCl(NDC Code:[address]-87) Hives Dr ug Allergy Active gabapentin Gabapentin([facility] Code:[address]-86) Hives Drug Allergy Active ENCOUNTERS from 1980 to 2020-03-14 Encounter Location Date Provider Diagnosis [facility] [address] [place] [phone] 08 Mar, 2020 Savanna Vallandigham Bacterial vaginit is N76.0 IMMUNIZATIONS No Information SOCIAL HISTORY Tobacco Use: [...] 1 capsule by mouth once daily Not-Taking Se- 19 29-1 MG 1 tablet Orally Once a day Not-Taking Benadryl Allergy 25 MG 1 tablet at bedtime as needed Orally Once a da y Active CPAP mask CPAP supplies as directed with CPAP CPAP at bedtime fo 30 July, Not-Taking - 1 tablet Orally Once a day for 30 day(s) Active Vitamin D (Ergocalciferol) 71777 UNIT 1 capsule Orally once weekly Not-Taking [...] tablet Orally Once a day Active PROCEDURES No Information RESULTS No Results REASON FOR VISIT No Information MEDICAL (GENERAL) HISTORY Type Description Date Medical [...] end ocrinology Medical History migraines follows w/ Ericak Tate NP Medical History C. diff colitis [...] Treatment Notes Treatm ent Clinical Notes Mar, Bacterial vaginitis (ICD-10 - N76.0) PLAN OF TREATMENT Medication Medication Name Sig Start Date Stop Date Metronidazole 500 MG 1 tablet Orally Twice a day for 7 days 2020 Next Appt Details Provider Name:Amy Glovern, 2020-03-16 0 9:00:00 AM, [address] [place] [address], [phone], Provider Name:Sadi Zaragoza, 12:45:00 AM, [address] [place] [address], [phone], Provider Name:Radha Restrepo, 2020-04 07:30:00 AM, [address] [place] [address], [phone], Provider Name:Sadi Zaragoza, 07:30:00 AM, [address] [place] [address], [phone], Provider Name:Sadi Zaragoza, 11:40:00 AM, [address] [place] [address], [phone], Provider Name:Sadi Zaragoza, 11:40:00 AM, [address] [place] [address], [phone], Insurance Providers Payer Name Payer Address Payer Phone Insured Name Patient Relati onship to Insured Coverage Start Date Coverage End Date [facility] COMMUNITY PLAN [facility] [address] [facility] [id number] [phone] CHEN PETERS self
--- OUTSIDE RECORDS SUMMARY | 2020-04-04 23:23 | CCD ---
Author Author Leanna Michelle Organization Unknown Address [address] [address] Phone Care Team Providers Care Excavating Machine Operator Name Role Phone Ericka Michelle PCP Allergies, Adverse Reactions, Alerts Concept Allergy Name Reaction Severity Onset Date Status Documentation Date Phone Number Npid Taxonomy Code Taxonomy Desc Author Last Name Author Fi rst Name Concept Type 299012 nkda Active 02/09/2018 RXNORM Problem List Concept [...] Name Taxonomy Code Taxonomy Desc Phone Number [phone] Prozac by mouth [id number] 04/27/2019 once a day 30 20 mg capsule [id number] [phone] Bridgette Tellez [id number] Nurse Practitioner [phone] Social History Social History Element Description Concept Effective Date Smoking Status Unknown if ever smoked [id number] Immunizations No Data in Section Vital Signs No Data in Section Procedures Date Concept Id Description Targeted Site Concept Targeted Site Concept Type 03/06/2020 10183 Extended Individual Psychotherapy - 45 min CPT Patient has no history of implantable de vices Encounters Encounter Start Date End Date Encounter Type Description Diagnosis Di agnosis Desc Location Author First Name Author Last Name Npid Taxonomy Cod e Taxonomy Desc Phone Number Location Addr1 Location Addr2 Location [facility] Location [facility] Location Zip [id number] 03/06/2020 03/06/2020 [address] Extended Individual Psych otherapy - 45 min F43.12 Post-traumatic stress disorder, chronic [facility] Miguel Angel Ericka [phone] [id number] Mental Health [phone] [address] [address] Plan of Treatment No Data in Section Lab Results No Data in Section Instructions No Data in Section Insurance Providers Insurance Id Policy Effective Date Policy Thru Date Company N elena [id number] [address]
--- OUTSIDE RECORDS SUMMARY | 2020-04-04 23:23 | CCD | Summary of Care ---
Author Author [facility] Address Unknown Phone Unavailable Care Team Providers Care Cemetery Vault Installer Name Role Phone Trav Camargo MD PCP Encounter Details Care Team Description Date Type Department 03/02/2020 [facility] TRANSFER CE NTER Encounter [address] [place] [address] Allergies Comments Active Allergy Reactions Severity Noted Date Amitriptyline 12/11/2016 Atenolol 01/15/2015 Blue Dyes (Parenteral) 12/12/2016 Fish Allergy 01/15/2015 Fish-Derived Products Hives, 01/01/2012 Swelling Cyclobenzaprine Hcl Hives, 01/01/2012 Swelling Ziprasidone 01/15/2015 Gabapentin Hives, 01/01/2012 Swelling Gabapentin 01/15/2015 Nortriptyline Hives, 01/01/2012 Swelling Nortriptyline 01/15/2015 Red Dye 12/12/2016 Risperidone 01/15/2015 Seafood Hives, 01/01/2012 Swelling Tramadol Hcl Hives, 01/01/2012 Swelling documented as of this encounter (statuses as of 03/17/2020) Medications End Date Status Medication Sig Dispensed Refills Start Date Active Vit-Fe Take by 0 Sulfate-FA ( mouth. VITAMIN PO) Active Cholecalciferol (VITAMIN Take 1,000 0 D3) 1000 UNITS CAPS Units by mouth daily. Active omeprazole (PRILOSEC) 40 Take 40 mg by 0 MG capsule mouth daily. Active Vitamin D, Take 50,000 0 Ergocalciferol, 42486 Units by UNITS CAPSIndications: on mouth every 7 tuesdays (seven) days. Indications: on tuesdays Active Brexpiprazole (REXULTI) Take by mouth 0 0.5 MG TABS Active trazodone (DESYREL) 50 MG Take 50 mg by 0 tablet mouth nightly Active fluoxetine (PROZAC) 20 MG TAKE TWO 1 12/02 capsule CAPSULES BY 7 MOUTH AT BEDTIME documented as of this encounter (statuses as of 03/17/2020) Active Problems Problem Noted Date Depression 01/18/2015 Suicidal ideation 01/18/2015 Mood disorder 01/18/2015 Obesity, morbid, BMI 40.0-49.9 01/18/2015 Nicotine use disorder 01/18/2015 History of posttraumatic stress disorder (PTSD) 01/01 Bulimia nervosa in remission 01/18/2015 Borderline personality disorder 01/17/2015 Morbid obesity with BMI of 40.0-44.9, adult 01/17/20 Suicidal overdose 01/16/2015 TCA (tricyclic antidepressant) overdose of undetermin ed intent 01/15/2015 Acute encephalopathy 01/15/2015 documented as of this encounter (statuses as of 03/17/2020) Resolved Problems Problem Noted Date Resolved Date Acute respiratory failure 01/15/2015 01/16/2015 documented as of this encounter (statuses as of 03/17/2020) Social History Date Tobacco Use Types Packs/Day Years Used Never Smoker Smokeless Tobacco: Never Used Drinks/Week oz/Week Comments Alcohol Use 3 Cans of beer 3.0 Yes Sex Assigned at Date Recorded Not on file Date Recorded COVID-19 Exposure Response 03/02/2020 10:20 AM EST In the last month, have you been in contact with No / Unsure someone who was confirmed or suspected to have Coronavirus / COVID-19? documented as of this encounter Last Filed Vital Signs Not on filedocumented in this encounter Plan of Treatment Health Maintenance Due Date Last Done Comments MMR Vaccines (1 of - 1981 Standard series) Varicella Vaccines (1 of 1981 2 - 2-dose childhood series) HIV Screening 1993 Cervical Cancer Screening 2001 5 years DTaP,Tdap,and Td Vaccines 10/31/2018 10/03/2018 (2 - Td) Influenza Vaccine 12/02/2019 Pneumococcal Vaccine: 65+ 2045 Years (1 of 1 - PPSV23) HIB Vaccines Aged Out No longer eligible based on patient's age to complete this topic Hepatitis A Vaccines Aged Out No longer eligibl e based on patient's age to complete this topic Hepatitis B Vaccines Aged Out No longer eligibl e based on patient's age to complete this topic IPV Vaccines Aged Out No longer eligible based on patient's age to complete this topic Pneumococcal Vaccine: Aged Out No longer eligib le based on patient's age to Pediatrics (0 to 5 Years) complete this topic and At-Risk Patients (6 to 64 Years) documented as of this encounter Results Not on filedocumented in this encounter
--- OUTSIDE RECORDS SUMMARY | 2020-04-04 23:23 | CCD ---
Author Author [facility] Organization [facility] Address Unknown Phone Unavailable Care Team Providers Care T[employer] Installer Name Role Phone Savanna Smith Unavailable PROBLEMS Type Condition ICD9-CM Code [id number] Code Onset Dates Condition S tatus SNOMED Code Notes Problem Asthma, unspecified, unspecified status 493.90 Active 81427069 Problem Contusion of abdominal wall 922.2 Active 3790 7001 Problem Contusion of upper arm 923.03 Active 43120397 Problem Low vision, one eye, not otherwise specified 369.70 Active 76101619 Problem Obesity, unspecified 278.00 Active 927867082 Problem Contusion of hand(s) 923.20 Active 3546178 Problem Spontaneous ecchymoses 782.7 Active 956350403 Problem Other screening breast examination V76.19 Activ e 25431352 Problem Fibrocystic breast disease 610.1 Active 91582 007 Problem Abscess 682.9 Active 323254116 Problem Intestinal infections due to clostridium difficile 008.45 Active 720663599 Problem Sebaceous cyst 706.2 Active 989184524 Problem Decreased hearing 389.9 Active 105350212 Problem Hx of infertility V13.29 Active Problem Lump or mass in breast 611.72 Active 20700572 Problem History of cervical dysplasia V13.22 Active 47 7693363 Problem Hx of ovarian cyst V13.29 Active 98714725 Problem Routine gynecological examination V72.31 Active 015563852435970 Problem Pelvic pain in female 625.9 Active 051567342 Problem GERD (gastroesophageal reflux disease) 530.81 A ctive 876343696 Problem Obesity complicating in second trimester O99.212 Active 363376069960 Problem Diarrhea 787.91 Active 67013597 Problem Obesity complicating in third trimester O99.21 3 Active Problem Elevated blood pressure reading without diagnosi s of hypertension 796.2 Active 077100558 Problem Candidal vaginitis 112.1 Active 73501865 Problem Myalgia M79.1 Active 00457061 Problem Elevated C-reactive protein (CRP) R79.82 Active 496959836185460 Problem Fibromyalgia M79.7 Active 265819070 Problem Supervision of other normal Z34.80 Ac tive 744352195 ALLERGIES Allergen (clinical drug ingredient) Drug/Non Drug Allergy do cumented on EMR Reaction Allergy Type Onset Date Status seafood, fish Angioedema Non Drug Allergy Activ e cyclobenzaprine Cyclobenzaprine HCl(ND Code:[address]-08) Hives Drug Allergy Active tramadol Tramadol HCl(ND Code:[address]-96) Hives Drug Aller gy Active Geodon Paranoid Non Drug Allergy Active Sea Food Anaphylaxis Non Drug Allergy Active atenolol 100 Hives Drug Allergy Active ziprasidone Ziprasidone HCl([facility] Code:[address]-67) Hives Drug A llergy Active nortriptyline Nortriptyline HCl(ND Code:[address]-58) Hives Dr ug Allergy Active Flexeril Hives Drug Allergy Active risperidone Risperidone(ND Code:[address]-86) Hives Drug Aller gy Active rispererdol dizzy Non Drug Allergy Active tramadol Ultram(ND Code:[address]-76) Hives Drug Allergy Active amitriptyline Amitriptyline HCl(NDC Code:[address]-91) Hives Dr ug Allergy Active gabapentin Gabapentin(ND Code:[address]-42) Hives Drug Allergy Active ENCOUNTERS from 1980 to 2020-03-30 Encounter Location Date Provider Diagnosis [facility] [address] [place] [id number] [facility] low transverse uterine scar from previous delivery O34.211 ; induced hypertension, third trimester O13.3 ; 33 weeks gestation of Z3A.33 and Obesity complicating in third trimester O99.213 IMMUNIZATIONS No Information SOCIAL HISTORY Tobacco Use: Social History Observation Description Date Details (start date - stop date) Former Smoker Sex Assigned At : Social History Observation Description Sex Assigned At Unknown Tobacco Use: Question Answer Notes Are you a: former smoker REASON FOR REFERRAL No Information VITAL SIGNS Weight 294.2 lbs Mar, Weight-kg 133.45 kg Mar, Height 66 in Mar, BMI 47.485 kg/m2 Mar, Blood pressure systolic 144 mm Hg Mar, Blood pressure diastolic 90 mm Hg Mar, MEDICATIONS Medication SIG (Take, Route, Frequency, Duration) Notes Start Da te End Date Status Abilify Maintena 400 MG 2 ml Intramuscular [...] at bedtime July, Not-Taking Vitamin D (Ergocalciferol) 62391 UNIT 1 capsule Orally once weekly Not-Taking [...] a day Not-Taking PROCEDURES from 1980 to 2020-03-30 Procedure Date Ordered Result Body Site non-stress test 2020-03-23 N/A RESULTS No Results REASON FOR VISIT 1WK PN & NST MEDICAL (GENERAL) HISTORY Type Description Date Medical [...] from previous delivery (ICD-10 - O34.211) Mar, induced hypertension, third trimester (ICD-10 - O13.3) Mar, 33 weeks gestation of (ICD-10 - Z3A.33 ) Mar, Obesity complicating pregnan cy in third trimester (ICD-10 - O99.213) PLAN OF TREATMENT Medication Medication Name Sig Start Date Stop Date Valtrex 500 MG 1 tablet Orally Twice daily for 30 days Next Appt Details 1 Week Reason:COB, weekly NST Provider Name:Radha Restrepo, 2020-03 11:20:00 AM, [address] [place] [address], [phone], Provider Name:Amy Arriaga, 2020-04-11 0 9:30:00 AM, [address] [place] [address], [phone], Provider Name:Radha Restrepo, 2020-04 07:30:00 AM, [address] [place] [address], [phone], Provider Name:Amy Arriaga, 2020-04-14 0 7:30:00 AM, [address] [place] [address], [phone], Provider Name:Amy Arriaga, 2020-05-01 0 9:00:00 AM, [address] [place] [address], [phone], Provider Name:Amy Arriaga, 2020-06-13 1 1:40:00 AM, [address] [place] [address], [phone], Follow Up:1 WeekCOB, weekly NST Insurance Providers Payer Name Payer Address Payer Phone Insured Name Patient Relati onship to Insured Coverage Start Date Coverage End Date [facility] [address] [facility] [phone] CHEN PETERS self
--- OUTSIDE RECORDS SUMMARY | 2020-04-04 23:25 | CCD ---
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 Care [place] Molder Name Role Phone ADAMARIS, WIL Unavailable Unavailable KIM RIVERA MD Unavailable Unavailable KIM RIVERA MD Unavailable Unavailable KIM RIVERA MD Unavailable Unavailable KIM RIVERA MD Unavailable Unavailable KIM RIVERA MD Unavailable Unavailable KIM RIVERA MD Unavailable Unavailable KIM RIVERA MD Unavailable Unavailable KIM RIVERA MD Unavailable Unavailable KIM RIVERA MD Unavailable Unavailable KIM RIVERA MD Unavailable Unavailable KIM RIVERA MD Unavailable Unavailable KIM RIVERA MD Unavailable Unavailable KIM RIVERA MD Unavailable Unavailable KIM RIVERA MD Unavailable Unavailable KIM RIVERA MD Unavailable Unavailable KIM RIVERA MD Unavailable Unavailable KIM RIVERA MD Unavailable Unavailable KIM RIVERA MD Unavailable Unavailable KIM RIVERA MD Unavailable Unavailable KIM RIVERA MD Unavailable Unavailable KIM RIVERA MD Unavailable Unavailable KIM RIVERA MD Unavailable Unavailable KIM RIVERA MD Unavailable Unavailable KIM RIVERA MD Unavailable Unavailable KIM RIVERA MD Unavailable Unavailable KIM RIVERA MD Unavailable Unavailable KIM RIVERA MD Unavailable Unavailable KIM RIVERA MD Unavailable Unavailable KIM RIVERA MD Unavailable Unavailable KIM RIVERA MD Unavailable Unavailable KIM RIVERA MD Unavailable Unavailable KIM RIVERA MD Unavailable Unavailable KIM RIVERA MD Unavailable Unavailable KIM RIVERA MD Unavailable Unavailable KIM RIVERA MD Unavailable Unavailable KIM RIVERA MD Unavailable Unavailable KIM RIVERA MD Unavailable Unavailable KIM RIVERA MD Unavailable Unavailable KIM RIVERA MD Unavailable Unavailable KIM RIVERA MD Unavailable Unavailable KIM RIVERA MD Unavailable Unavailable KIM RIVERA MD Unavailable Unavailable KIM RIVERA MD Unavailable Unavailable KIM RIVERA MD Unavailable Unavailable KIM RIVERA MD Unavailable Unavailable KIM RIVERA MD Unavailable Unavailable KIM RIVERA MD Unavailable Unavailable KIM RIVERA MD Unavailable Unavailable KIM RIVERA MD Unavailable Unavailable KIM RIVERA MD Unavailable Unavailable KIM RIVERA MD Unavailable Unavailable KIM RIVERA MD Unavailable Unavailable KIM RIVERA MD Unavailable Unavailable KIM RIVERA MD Unavailable Unavailable KIM RIVERA MD Unavailable Unavailable KIM RIVERA MD Unavailable Unavailable KIM RIVERA MD Unavailable Unavailable KIM RIVERA MD Unavailable Unavailable KIM RIVERA MD Unavailable Unavailable KIM RIVERA MD Unavailable Unavailable KIM RIVERA MD Unavailable Unavailable KIM RIVERA MD Unavailable Unavailable KIM RIVERA MD Unavailable Unavailable KIM RIVERA MD Unavailable Unavailable KIM RIVERA MD Unavailable Unavailable KIM RIVERA MD Unavailable Unavailable KIM RIVERA MD Unavailable Unavailable KIM RIVERA MD Unavailable Unavailable KIM RIVERA MD Unavailable Unavailable KIM RIVERA MD Unavailable Unavailable KIM RIVERA MD Unavailable Unavailable KIM RIVERA MD Unavailable Unavailable KIM RIVERA MD Unavailable Unavailable KIM RIVERA MD Unavailable Unavailable KIM RIVERA MD Unavailable Unavailable KIM RIVERA MD Unavailable Unavailable KIM RIVERA MD Unavailable Unavailable KIM RIVERA MD Unavailable Unavailable KIM RIVERA MD Unavailable Unavailable KIM RIVERA MD Unavailable Unavailable KIM RIVERA MD Unavailable Unavailable KIM RIVERA MD Unavailable Unavailable KIM RIVERA MD Unavailable Unavailable KIM RIVERA MD Unavailable Unavailable Tyresenumpurajamila, F Reina MD Unavailable Unavailable Kunnumpurath, F Reina MD Unavailable Unavailable Kunnumpurath, F Reina MD Unavailable Unavailable Kunnumpurath, F Reina MD Unavailable Unavailable Kunnumpurath, F Reina MD Unavailable Unavailable Kunnumpurath, F Reina MD Unavailable Unavailable Kunnumpurath, F Reina MD Unavailable Unavailable Kunnumpurath, F Reina MD Unavailable Unavailable Kunnumpurath, F Reina MD Unavailable Unavailable Kunnumpurath, F Reina MD Unavailable Unavailable Kunnumpurath, F Reina Unavailable Unavailable Kunnumpurath, F Reina Unavailable Unavailable Kunnumpurath, F Reina Unavailable Unavailable Kunnumpurath, F Reina Unavailable Unavailable Kunnumpurath, F Reina Unavailable Unavailable Kunnumpurath, F Reina Unavailable Unavailable Kunnumpurath, F Reina Unavailable Unavailable Kunnumpurath, F Reina Unavailable Unavailable Kunnumpurath, F Reina Unavailable Unavailable Kunnumpurath, F Reina Unavailable Unavailable Kunnumpurath, F Reina MD Unavailable Unavailable Kunnumpurath, F Reina MD Unavailable Unavailable Kunnumpurath, F Reina MD Unavailable Unavailable Kunnumpurath, F Reina MD Unavailable Unavailable Kunnumpurath, F Reina MD Unavailable Unavailable Kunnumpurath, F Reina MD Unavailable Unavailable Kunnumpurath, F Reina MD Unavailable Unavailable Kunnumpurath, F Reina MD Unavailable Unavailable Kunnumpurath, F Reina MD Unavailable Unavailable Kunnumpurath, F Reina MD Unavailable Unavailable Kunnumpurath, F Reina MD Unavailable Unavailable Kunnumpurath, F Reina MD Unavailable Unavailable Kunnumpurath, F Reina MD Unavailable Unavailable Kunnumpurath, F Reina MD Unavailable Unavailable Kunnumpurath, F Reina MD Unavailable Unavailable Kunnumpurath, F Reina MD Unavailable Unavailable Kunnumpurath, F Reina MD Unavailable Unavailable Kunnumpurath, F Reina MD Unavailable Unavailable Dean Talbert MD Unavailable Unavailable Dean Talbert MD Unavailable Unavailable Dean Talbert MD Unavailable Unavailable Dean Talbert MD Unavailable Unavailable TalbertDean estrada MD Unavailable Unavailable Dean Talbert MD Unavailable Unavailable Dean Talbert MD Unavailable Unavailable Dean Talbert MD Unavailable Unavailable Dean Talbert MD Unavailable Unavailable Dean Talbert MD Unavailable Unavailable Dean Talbert MD Unavailable Unavailable TalbertDean estrada MD Unavailable Unavailable Dean Talbert MD Unavailable Unavailable Dean Talbert MD Unavailable Unavailable Dean Talbert MD Unavailable Unavailable Dean Talbert MD Unavailable Unavailable Dean Talbert MD Unavailable Unavailable TalbertDean estrada MD Unavailable Unavailable TalbertDean estrada MD Unavailable Unavailable TalbertDean estrada MD Unavailable Unavailable TalbertDean estrada MD Unavailable Unavailable TalbertDean estrada MD Unavailable Unavailable Dean Talbert MD Unavailable Unavailable Dean Talbert MD Unavailable Unavailable Dean Talbert MD Unavailable Unavailable TalbertDean estrada MD Unavailable Unavailable TalbertDean estrada MD Unavailable Unavailable TalbertDean estrada MD Unavailable Unavailable TalbertDean estrada MD Unavailable Unavailable TalbertDean estrada MD Unavailable Unavailable TalbertDean estrada MD Unavailable Unavailable TalbertDean estrada MD Unavailable Unavailable TalbertDean estrada MD Unavailable Unavailable Dean Talbert MD Unavailable Unavailable Dean Talbert MD Unavailable Unavailable Dean Talbert MD Unavailable Unavailable Dean Talbert MD Unavailable Unavailable Dean Talbert MD Unavailable Unavailable Dean Talbert MD Unavailable Unavailable Dean Talbert MD Unavailable Unavailable Dean Talbert MD Unavailable Unavailable Dean Talbert MD Unavailable Unavailable Dean Talbert MD Unavailable Unavailable Dean Talbert MD Unavailable Unavailable Dean Talbert MD Unavailable Unavailable Dean Talbert MD Unavailable Unavailable Dean Talbert MD Unavailable Unavailable Dean Talbert MD Unavailable Unavailable Dean Talbert MD Unavailable Unavailable Dean Talbert MD Unavailable Unavailable Dean Talbert MD Unavailable Unavailable Dean Talbert MD Unavailable Unavailable Dean Talbert MD Unavailable Unavailable Mirtha Manley MD Unavailable Unavailable Mirtha Manley MD Unavailable Unavailable Mirtha Manley MD Unavailable Unavailable Mirtha Manley MD Unavailable Unavailable Mirtha Manley MD Unavailable Unavailable Mirtha Manley MD Unavailable Unavailable Aime Manleytech Unavailable Unavailable Aime Manleytech Unavailable Unavailable Aime Manleytech Unavailable Unavailable Aime Manleytech Unavailable Unavailable Aime Manleytech Unavailable Unavailable Mirtha Manley MD Unavailable Unavailable Aime Manleytech Unavailable Unavailable Aime Manleytech Unavailable Unavailable Aime Manleytech Unavailable Unavailable Aime Manleytech Unavailable Unavailable Aime Manleytech Unavailable Unavailable Aime Manleytech Unavailable Unavailable Aime Manlyetech Unavailable Unavailable Aime Manleytech Unavailable Unavailable Idris Manleyjtech Unavailable Unavailable Idris Manleyjtech Unavailable Unavailable Aime Manleytech Unavailable Unavailable Aime Manleytech Unavailable Unavailable Aime Manleytech Unavailable Unavailable Aime Manleytech Unavailable Unavailable Idris Manleyjtech Unavailable Unavailable Idris Manleyjtech Unavailable Unavailable Idris Manleyjtech Unavailable Unavailable Aime Manleytech Unavailable Unavailable Aime Manleytech Unavailable Unavailable Mirtha Manley MD Unavailable Unavailable Mirtha Manley MD Unavailable Unavailable Mirtha Manley MD Unavailable Unavailable Mirtha Manley MD Unavailable Unavailable Mirtha Manley MD Unavailable Unavailable Mirtha Manley MD Unavailable Unavailable Mirtha Manley MD Unavailable Unavailable SleMirtha monaco MD Unavailable Unavailable SleMirtha monaco MD Unavailable Unavailable Aime Manleytech Unavailable Unavailable Mirtha Manley MD Unavailable Unavailable SleAime monacotech Unavailable Unavailable Mirtha Manley MD Unavailable Unavailable SleAime monacotech Unavailable Unavailable Aime Manleytech Unavailable Unavailable SleAime monacotech Unavailable Unavailable Mirtha Manley MD Unavailable Unavailable Aime Manleytech Unavailable Unavailable iMrtha Manley MD Unavailable Unavailable Aime Manleytech Unavailable Unavailable Mirtha Manley MD Unavailable Unavailable Mirtha Manley MD Unavailable Unavailable Mirtha Manley MD Unavailable Unavailable Mirtha Manley MD Unavailable Unavailable Mirtha Manley MD Unavailable Unavailable Mirtha Manley MD Unavailable Unavailable Mirtha Manley MD Unavailable Unavailable JAYMIEBryan MD Unavailable Unavailable JAYMIEBryan MD Unavailable Unavailable JAYMIEBryan MD Unavailable Unavailable JAYMIEBryan MD Unavailable Unavailable JAYMIEBryan MD Unavailable Unavailable JAYMIEBryan MD Unavailable Unavailable JAYMIEBryan MD Unavailable Unavailable JAYMIEBryan MD Unavailable Unavailable JAYMIEBryan MD Unavailable Unavailable JAYMIEBryan MD Unavailable Unavailable JAYMIEBryan MD Unavailable Unavailable JAYMIEBryan MD Unavailable Unavailable JAYMIEBryan MD Unavailable Unavailable JAYMIEBryan MD Unavailable Unavailable JAYMIEBryan MD Unavailable Unavailable JAYMIEBryan MD Unavailable Unavailable JAYMIEBryan MD Unavailable Unavailable JAYMIEBryan MD Unavailable Unavailable JAYMIEBryan MD Unavailable Unavailable JAYMIEBryan MD Unavailable Unavailable JAYMIEBryan MD Unavailable Unavailable JAYMIEBryan MD Unavailable Unavailable JAYMIE F JOHN MD Unavailable Unavailable JAYMIE, F JOHN MD Unavailable Unavailable JAYMIE, F JOHN MD Unavailable Unavailable JAYMIE, F JOHN MD Unavailable Unavailable JAYMIE, F JOHN MD Unavailable Unavailable CAMARGO, CAITLIN MD Unavailable Unavailable CAMARGO, CAITLIN MD Unavailable Unavailable CAMARGO, CAITLIN MD Unavailable Unavailable CAMARGO, CAITLIN MD Unavailable Unavailable CAMARGO, CAITLIN MD Unavailable Unavailable CAMARGO, CAITLIN MD Unavailable Unavailable CAMARGO, CAITLIN MD Unavailable Unavailable CAMARGO, CAITLIN MD Unavailable Unavailable CAMARGO, CAITLIN MD Unavailable Unavailable CAMARGO, CAITLIN MD Unavailable Unavailable CAMARGO, CAITLIN MD Unavailable Unavailable CAMARGO, CAITLIN MD Unavailable Unavailable CAMARGO, CAITLIN MD Unavailable Unavailable CAMARGO, CAITLIN MD Unavailable Unavailable CAMARGO, CAITLIN MD Unavailable Unavailable CAMARGO, CAITLIN MD Unavailable Unavailable CAMARGO, CAITLIN MD Unavailable Unavailable CAMARGO, CAITLIN MD Unavailable Unavailable CAMARGO, CAITLIN MD Unavailable Unavailable CAMARGO, CAITLIN MD Unavailable Unavailable CAMARGO, CAITLIN MD Unavailable Unavailable CAMARGO, CAITLIN MD Unavailable Unavailable CAMARGO, CAITLIN MD Unavailable Unavailable CAMARGO, CAITLIN MD Unavailable Unavailable CAMARGO, CAITLIN MD Unavailable Unavailable CAMARGO, CAITLIN MD Unavailable Unavailable CAMARGO, CAITLIN MD Unavailable Unavailable CAMARGO, CAITLIN MD Unavailable Unavailable CAMARGO, CAITLIN MD Unavailable Unavailable CAMARGO, CAITLIN MD Unavailable Unavailable CAMARGO, CAITLIN MD Unavailable Unavailable CAMARGO, CAITLIN MD Unavailable Unavailable CAMARGO, CAITLIN MD Unavailable Unavailable CAMARGO, CAITLIN MD Unavailable Unavailable CAMARGO, CAITLIN MD Unavailable Unavailable CAMARGO, CAITLIN MD Unavailable Unavailable CAMARGO, CAITLIN MD Unavailable Unavailable CAMARGO, CAITLIN MD Unavailable Unavailable CAMARGO, CAITLIN MD Unavailable Unavailable CAMARGO, CAITLIN MD Unavailable Unavailable CAMARGO, CAITLIN MD Unavailable Unavailable CAMARGO, CAITLIN MD Unavailable Unavailable CAMARGO, CAITLIN MD Unavailable Unavailable CAMARGO, CAITLIN MD Unavailable Unavailable CAMARGO, CAITLIN MD Unavailable Unavailable CAMARGO, CAITLIN MD Unavailable Unavailable CAMARGO, CAITLIN MD Unavailable Unavailable CAMARGO, CAITLIN MD Unavailable Unavailable CAMARGO, CAITLIN MD Unavailable Unavailable CAMARGO, CAITLIN MD Unavailable Unavailable CAMARGO, CAITLIN MD Unavailable Unavailable CAMARGO, CAITLIN MD Unavailable Unavailable CAMARGO, CAITLIN MD Unavailable Unavailable CAMARGO, CAITLIN MD Unavailable Unavailable CAMARGO, CAITLIN MD Unavailable Unavailable CAMARGO, CAITLIN MD Unavailable Unavailable CAMARGO, CAITLIN MD Unavailable Unavailable CAMARGO, CAITLIN MD Unavailable Unavailable CAMARGO, CAITLIN MD Unavailable Unavailable CAMARGOCAITLIN MEEKS MD Unavailable Unavailable CAMARGOCAITLIN MEEKS MD Unavailable Unavailable CAMARGOCAITLIN MEEKS MD Unavailable Unavailable CAMARGOCAITLIN MEEKS MD Unavailable Unavailable CAMARGOCAITLIN MEEKS MD Unavailable Unavailable CAMARGOCAITLIN MEEKS MD Unavailable Unavailable CAMARGOCAITLIN MEEKS MD Unavailable Unavailable CAMARGOCAITLIN MEEKS MD Unavailable Unavailable CAMARGOCAITLIN MEEKS MD Unavailable Unavailable CAMARGOCAITLIN MEEKS MD Unavailable Unavailable Tabitha, J Manohar PA-C Unavailable Unavailable Tabitha, J Manohar PA-C Unavailable Unavailable Tabitha, J Manohar PA-C Unavailable Unavailable Tabitha, J Manohar PA-C Unavailable Unavailable Tabitha, J Manohar PA-C Unavailable Unavailable Tabitha, J Manohar PA-C Unavailable Unavailable Tabitha, J Manohar PA-C Unavailable Unavailable Tabitha, J Manohar PA-C Unavailable Unavailable Tabitha, J Manohar PA-C Unavailable Unavailable Tabitha, J Manohar PA-C Unavailable Unavailable Tabitha, J Manohar PA-C Unavailable Unavailable JOVANNI, H EZEQUIEL DROP HAMMER SETTER UP Unavailable Unavailable JOVANNI, H EZEQUIEL DROP HAMMER SETTER UP Unavailable Unavailable JOVANNI, H EZEQUIEL DROP HAMMER SETTER UP Unavailable Unavailable JOVANNI, H EZEQUIEL DROP HAMMER SETTER UP Unavailable Unavailable JOVANNI, H EZEQUIEL DROP HAMMER SETTER UP Unavailable Unavailable JOVANNI, H EZEQUIEL DROP HAMMER SETTER UP Unavailable Unavailable JOVANNI, H EZEQUIEL DROP HAMMER SETTER UP Unavailable Unavailable CAMARGOCAITLIN MEEKS MD Unavailable Unavailable CAMARGOCAITLIN MEEKS MD Unavailable Unavailable CAMARGOCAITLIN MEEKS MD Unavailable Unavailable CAMARGOCAITLIN MEEKS MD Unavailable Unavailable CAMARGOCAITLIN MEEKS MD Unavailable Unavailable CAMARGOCAITLIN MEEKS MD Unavailable Unavailable CAMARGOCAITLIN MEEKS MD Unavailable Unavailable CAMARGOCAITLIN MEEKS MD Unavailable Unavailable CAMARGOCAITLIN MEEKS MD Unavailable Unavailable CAMARGOCAITLIN MEEKS MD Unavailable Unavailable CAMARGOCAITLIN MEEKS MD Unavailable Unavailable CAMARGOCAITLIN MEEKS MD Unavailable Unavailable CAMARGOCAITLIN MEEKS MD Unavailable Unavailable CAMARGOCAITLIN MEEKS MD Unavailable Unavailable CAMARGOCAITLIN MEEKS MD Unavailable Unavailable CAMARGOCAITLIN MEEKS MD Unavailable Unavailable CAMARGOCAITLIN MEEKS MD Unavailable Unavailable CAITLIN CAMARGO MD Unavailable Unavailable CAITLIN CAMARGO MD Unavailable Unavailable CAITLIN CAMARGO MD Unavailable Unavailable CAMARGOCAITLIN MEEKS MD Unavailable Unavailable CAMARGOCAITLIN MEEKS MD Unavailable Unavailable CAMARGOCAITLIN MEEKS MD Unavailable Unavailable CAMARGOCAITLIN MEEKS MD Unavailable Unavailable CAMARGOCAITLIN MEEKS MD Unavailable Unavailable CAMARGOCAITLIN MEEKS MD Unavailable Unavailable CAMARGOCAITLIN MEEKS MD Unavailable Unavailable CAMARGOCAITLIN MEEKS MD Unavailable Unavailable CAMARGOCAITLIN MEEKS MD Unavailable Unavailable CAMARGO, CAITLIN MD Unavailable Unavailable CAMARGO, CAITLIN MD Unavailable Unavailable CAMARGO, CAITLIN MD Unavailable Unavailable CAMARGO, CAITLIN MD Unavailable Unavailable CAMARGO, CAITLIN MD Unavailable Unavailable CAMARGO, CAITLIN MD Unavailable Unavailable CAMARGO, CAITLIN MD Unavailable Unavailable CAMARGO, CAITLIN MD Unavailable Unavailable CAMARGO, CAITLIN MD Unavailable Unavailable CAMARGO, CAITLIN MD Unavailable Unavailable CAMARGO, CAITLIN MD Unavailable Unavailable CAMARGO, CAITLIN MD Unavailable Unavailable CAMARGO, CAITLIN MD Unavailable Unavailable CAMARGO, CAITLIN MD Unavailable Unavailable CAMARGO, CAITLIN MD Unavailable Unavailable CAMARGO, CAITLIN MD Unavailable Unavailable CAMARGO, CAITLIN MD Unavailable Unavailable CAMARGO, CAITLIN MD Unavailable Unavailable CAMARGO, CAITLIN MD Unavailable Unavailable CAMARGO, CAITLIN MD Unavailable Unavailable CAMARGO, CAITLIN MD Unavailable Unavailable CAMARGO, CAITLIN MD Unavailable Unavailable CAMARGO, CAITLIN MD Unavailable Unavailable CAMARGO, CAITLIN MD Unavailable Unavailable CAMARGO, CAITLIN MD Unavailable Unavailable CAMARGO, CAITLIN MD Unavailable Unavailable CAMARGO, CAITLIN MD Unavailable Unavailable CAMARGO, CAITLIN MD Unavailable Unavailable CAMARGO, CAITLIN MD Unavailable Unavailable CAMARGO, CAITLIN MD Unavailable Unavailable CAMARGO, CAITLIN MD Unavailable Unavailable CAMARGO, CAITLIN MD Unavailable Unavailable CAMARGO, CAITLIN MD Unavailable Unavailable CAMARGO, CAITLIN MD Unavailable Unavailable CAMARGO, CAITLIN MD Unavailable Unavailable CAMARGO, CAITLIN MD Unavailable Unavailable CAMARGO, CAITLIN MD Unavailable Unavailable CAMARGO, CAITLIN MD Unavailable Unavailable CAMARGO, CAITLIN MD Unavailable Unavailable CAMARGO, CAITLIN MD Unavailable Unavailable Tomaiuoli, GEORGIE Lilo ANP-C Unavailable [phone] Tomaiuoashvin, GEORGIE Lilo ANP-C Unavailable [phone] Tomaiuoli, GEORGIE Lilo ANP-C Unavailable [phone] Tomaiuoli, GEORGIE Lilo ANP-C Unavailable [phone] Tomaiuoli, GEORGIE Lilo ANP-C Unavailable [phone] Tomaiuoli, GEORGIE Lilo ANP-C Unavailable [phone] Tomaiuoli, GEORGIE Lilo ANP-C Unavailable [phone] Tomaiuoli, GEORGIE Lilo ANP-C Unavailable [phone] Tomaiuoli, GEORGIE Lilo ANP-C Unavailable [phone] Tomaiuoashvin, GEORGIE Lilo ANP-C Unavailable [phone] Tomaiuoli, GEORGIE Lilo ANP-C Unavailable [phone] Tomaiuoli, GEORGIE Lilo ANP-C Unavailable [phone] Tomaiuoli, GEORGIE Lilo ANP-C Unavailable [phone] Tomaiuoli, GEORGIE Lilo ANP-C Unavailable [phone] Tomaiuoli, GEORGIE Lilo ANP-C Unavailable [phone] Tomaiuoli, GEORGIE Lilo ANP-C Unavailable [phone] Charanjitaiuoli, GEORGIE Lilo ANP-C Unavailable [phone] Diegouoli, GEORGIE Lilo ANP-C Unavailable [phone] Diegouoashvin GEORGIE Lilo ANP-C Unavailable [phone] Tomaiuoli, GEORGIE Lilo ANP-C Unavailable [phone] Tomaiuoli, GEORGIE Lilo ANP-C Unavailable [phone] Diegouoashvin GEORGIE Lilo ANP-C Unavailable [phone] Diegouoli, GEORGIE Lilo ANP-C Unavailable [phone] Charanjitaiuoashvin, GEORGIE Lilo ANP-C Unavailable [phone] Diegouoli, GEORGIE Lilo ANP-C Unavailable [phone] Tomaiuoli, GEORGIE Lilo ANP-C Unavailable [phone] Tomaiuoli, GEORGIE Lilo ANP-C Unavailable [phone] Charanjitaiuoli, GEORGIE Lilo ANP-C Unavailable [phone] Tomaiuoli, GEORGIE Lilo ANP-C Unavailable [phone] Charanjtiaiuoli, GEORGIE Lilo ANP-C Unavailable [phone] Diegouoli, GEORGIE Lilo ANP-C Unavailable [phone] Tomaiuoli, GEORGIE Lilo ANP-C Unavailable [phone] Tomaiuoli, GEORGIE Lilo ANP-C Unavailable [phone] Tomaiuoli, GEORGIE Lilo ANP-C Unavailable [phone] Tomaiuoli, GEORGIE Lilo ANP-C Unavailable [phone] Tomaiuoli, GEORGIE Lilo ANP-C Unavailable [phone] Tomaiuoli, GEORGIE Lilo ANP-C Unavailable [phone] Tomaiuoli, GEORGIE Lilo ANP-C Unavailable [phone] CAMARGOCAITLIN MEEKS MD Unavailable Unavailable CAMARGOCAITLIN MD Unavailable Unavailable CAMARGOCAITLIN MD Unavailable Unavailable CAMARGOCAITLIN MD Unavailable Unavailable CAMARGOCAITLIN MD Unavailable Unavailable CAMARGOCAITLIN MD Unavailable Unavailable CAMARGOCAITLIN MD Unavailable Unavailable CAMARGOCAITLIN MD Unavailable Unavailable CAMARGOCAITLIN MD Unavailable Unavailable CAMARGOCAITLIN MD Unavailable Unavailable CAMARGOCAITLIN MD Unavailable Unavailable CAMARGOCAITLIN MD Unavailable Unavailable CAMARGOCAITLIN MD Unavailable Unavailable CAMARGOCAITLIN MD Unavailable Unavailable CAMARGOCAITLIN MD Unavailable Unavailable CAMARGOCAITLIN MD Unavailable Unavailable CAMARGOCAITLIN MD Unavailable Unavailable CAMARGOCAITLIN MD Unavailable Unavailable CAMARGOCAITLIN MD Unavailable Unavailable CAMARGOCAITLIN MD Unavailable Unavailable CAMARGOCAITLIN MD Unavailable Unavailable CAMARGOCAITLIN MD Unavailable Unavailable CAMARGOCAITLIN MD Unavailable Unavailable CAMARGOCAITLIN MD Unavailable Unavailable CAMARGOCAITLIN MD Unavailable Unavailable CAMARGOCAITLIN MD Unavailable Unavailable CAMARGO CAITLIN MD Unavailable Unavailable CAMARGO CAITLIN MD Unavailable Unavailable CAMARGOCAITLIN MD Unavailable Unavailable CAMARGOCAITLIN MD Unavailable Unavailable CAMARGOCAITLIN MD Unavailable Unavailable CAMARGOCAITLIN MD Unavailable Unavailable CAMARGOCAITLIN MD Unavailable Unavailable CAMARGOCAITLIN MD Unavailable Unavailable CAMARGOCAITLIN MD Unavailable Unavailable CAMARGO CAITLIN MD Unavailable Unavailable CAMARGO CAITLIN MD Unavailable Unavailable CAMARGOCAITLIN MD Unavailable Unavailable CAMARGOCAITLIN MD Unavailable Unavailable CAMARGOCAITLIN MD Unavailable Unavailable CAMARGOCAITLIN MD Unavailable Unavailable CAMARGO CAITLIN MD Unavailable Unavailable CAMARGO, CAITLIN MD Unavailable Unavailable CAMARGO, CAITLIN MD Unavailable Unavailable CAMARGO, CAITLIN MD Unavailable Unavailable CAMARGO, CAITLIN MD Unavailable Unavailable CAMARGO, CAITLIN MD Unavailable Unavailable CAMARGO, CAITLIN MD Unavailable Unavailable CAMARGO, CAITLIN MD Unavailable Unavailable CAMARGO, CAITLIN MD Unavailable Unavailable CAMARGO, CAITLIN MD Unavailable Unavailable CAMARGO, CAITLIN MD Unavailable Unavailable CAMARGO, CAITLIN MD Unavailable Unavailable CAMARGO, CAITLIN MD Unavailable Unavailable CAMARGO, CAITLIN MD Unavailable Unavailable CAMARGO, CAITLIN MD Unavailable Unavailable CAMARGO, CAITLIN MD Unavailable Unavailable CAMARGO, CAITLIN MD Unavailable Unavailable CAMARGO, CAITLIN MD Unavailable Unavailable CAMARGO, CAITLIN MD Unavailable Unavailable CAMARGO, CAITLIN MD Unavailable Unavailable CAMARGO, CAITLIN MD Unavailable Unavailable CAMARGO, CAITLIN MD Unavailable Unavailable CAMARGO, CAITLIN MD Unavailable Unavailable CAMARGO, CAITLIN MD Unavailable Unavailable CAMARGO, CAITLIN MD Unavailable Unavailable CAMARGO, CAITLIN MD Unavailable Unavailable CAMARGO, CAITLIN MD Unavailable Unavailable CAMARGO, CAITLIN MD Unavailable Unavailable Ericka Michelle Unavailable SYSTEM IN, NOT IN PROVIDER Unavailable Unavailable Re-disclosure Warning The records that you are about to access may contain information from federally-assisted alcohol or drug abuse programs. If such information is present, then the following federally mandated warning applies: This information has been disclosed to you from records protected by federal confidentiality rules (42 CFR part 2). The federal rules prohibit you from making any further disclosure of this information unless further disclosure is expressly permitted by the written consent of the person to whom it pertains or as otherwise permitted by 42 CFR part 2. A general authorization for the release of medical or other information is NOT sufficient for this purpose. The Federal rules restrict any use of the information to criminally investigate or prosecute any alcohol or drug abuse patient.The records that you are about to access may contain highly sensitive health information, the redisclosure of which is protected by Article 27-F of the [facility] Public Health law. If you continue you may have access to information: Regarding HIV / AIDS; Provided by facilities licensed or operated by the [facility] Office of Mental Health; or Provided by the [facility] Office for People With Developmental Disabilities. If such information is present, then the following [facility] mandated warning applies: This information has been disclosed to you from confidential records which are protected by state law. State law prohibits you from making any further disclosure of this information without the specific written consent of the person to whom it pertains, or as otherwise permitted by law. Any unauthorized further disclosure in violation of state law may result in a fine or prison sentence or both. A general authorization for the release of medical or other information is NOT sufficient authorization for further disc losure. Allergies and Adverse Reactions Type Description Substance Reaction Status Data Source(s ) Propensity to adverse reactions to substance nkda 24 HR Bupropion Hydrochloride 150 MG Extended Release Oral Tablet Active [facility] ([facility]) BRANDNAME ULTRAM ULTRAM HIVES [facility] BRANDNAME NEURONTIN NEURONTIN [facility] Food allergy SEAFOOD SEAFOOD [facility] Drug allergy ATENOLOL ATENOLOL [facility] Drug allergy AMITRIPTYLINE AMITRIPTYLINE ANAPHYLAXIS VOMITING [facility] Drug allergy NORTRIPTYLINE NORTRIPTYLINE [facility] Drug allergy Gabapentin gabapentin Hives Active eCW1 ([facility]) Drug allergy Amitriptyline HCl Amitriptyline Hives Active eC W1 ([facility]) Drug allergy Risperidone Risperidone Hives Active eCW1 ([facility]) Drug allergy Nortriptyline HCl Nortriptyline Hives Active eC W1 ([facility]) Drug allergy Ziprasidone HCl ziprasidone Hives Active eCW1 ( [facility]) Drug allergy atenolol 100 Drug allergy Hives Active eCW1 ([facility]) Drug allergy Tramadol HCl Tramadol Hives Active eCW1 ([facility]) Ultram Ultram tramadol hydrochloride 50 MG Oral Tablet [Ultra m] Hives Active eCW1 ([facility]) Sea Food Sea Food Sea Food Anaphylaxis Active eCW1 ([facility]) Cyclobenzaprine HCl Cyclobenzaprine HCl Cyclobenzaprine HCl Hives Active eCW1 ([facility]) Flexeril Flexeril Flexeril Hives Active eCW1 ([facility]) rispererdol rispererdol rispererdol dizzy Active eCW1 ([facility]) Raúl Olsen ziprasidone 20 MG/ML Injectable Solution [Geodon] Paranoid Active eCW1 ([facility]) seafood, fish seafood, fish seafood, fish Angioedema Active eCW1 ([facility]) Family History Family Member Name Family Member Gender Family Member Status Date o f Status Description Data Source(s) Unknown Male Problem MEDENT ([facility]) Unknown Male Problem [facility] ([facility] ) Encounters Encounter Providers Location Date Indications Data Source(s ) Extended Individual Psychotherapy - 45 min [facility] 02:00:00 AM EST - 03/24/2020 02:00:00 AM EST [facility] ([facility]) Attender: Ericka Michelle 03/24/2020 12:00:00 AM EST [facility] ([facility]) ( ESTOB) enter Est OB [address] [place] [address] 03/23/2020 12:00:00 AM EST eCW1 ([facility]) Outpatient Attender: EZEQUIEL TELLEZ NP [facility] 03/21/2020 11:00:00 AM EST - 03/21/2020 11:00:00 AM EST [facility] ([facility]) [place] [address] [facility] [address] 03/21/2020 12:00:00 AM EST eCW1 ([facility]) Attender: EZEQUIEL TELLEZ NP 03/21/2020 12:00:00 AM EST [facility] ([facility]) Extended Individual Psychotherapy - 45 min Attender: Ericka Michelle [facility] 03/17/2020 11:00:00 AM EST - 03/17/2020 11:00:00 AM EST [facility] ([facility]) Attender: Ericka Michelle 03/17/2020 12:00:00 AM EST [facility] ([facility]) ( ESTOB) enter Est OB [address] [place] [address] 03/16/2020 12:00:00 AM EST eCW1 ([facility]) Unknown [address] [facility] [place] [address] 03/10/2020 12:00:00 AM EST eCW1 ([facility]) ( ESTOB) enter Est OB [address] [place] [address] 03/08/2020 12:00:00 AM EST eCW1 ([facility]) Extended Individual Psychotherapy - 45 min Attender: Ericka Michelle [facility] 03/06/2020 01:00:00 AM EST - 03/06/2020 01:00:00 AM EST [facility] ([facility]) Attender: Ericka Michelle 03/06/2020 12:00:00 AM EST [facility] ([facility]) Outpatient Referrer: PROVIDER SYSTEM IN 03/02/2020 1 0:20:00 AM EST shingles with occular involvement [facility] shingles with occular involvement Unknown [address] [facility] [place] [address] 02/28/2020 12:00:00 AM EST eCW1 ([facility]) ( [place]) [facility] Nurse Visit [address] [place] [address] 02/28/2020 12:00:00 AM EST eCW1 ([facility]) ( ESTOB) enter Est OB [address] [place] [address] 02/21/2020 12:00:00 AM EST eCW1 ([facility]) Extended Individual Psychotherapy - 45 min Attender: Ericka Michelle [facility] 02/11/2020 10:00:00 AM EST - 02/11/2020 10:00:00 AM EST [facility] ([facility]) Attender: Ericka Michelle 02/11/2020 12:00:00 AM EST [facility] ([facility]) Outpatient Attender: EZEQUIEL TELLEZ NP [facility] Eliezer lenz 01/25/2020 10:00:00 AM EST - 01/25/2020 10:00:00 AM EST [facility] ([facility]) Extended Individual Psychotherapy - 45 min Att[facility]: [facility] 01/25/[facility] 09:00:00 AM EST - 01/25/2020 09:00:00 AM EST [facility] ([facility]) Attender: EZEQUIEL TELLEZ NP 01/25/2020 12:00:00 AM EST [facility] ([facility]) Attender: Ericka Michelle 01/25/2020 12:00:00 AM EST [facility] ([facility]) (WC ESTOB) WCenter Est OB [address] [place] [address] 01/24/2020 12:00:00 AM EST eCW1 ([facility]) Unknown [address] [facility] [address] 01/21/2020 12:00:00 AM EST eCW1 ([facility]) Extended Individual Psychotherapy - 45 min Attender: Ericka Miguel Angel [facility] 01/10/2020 10:00:00 AM EST - 01/10/2020 10:00:00 AM EST [facility] ([facility]) Attender: Ericka Michelle 01/10/2020 12:00:00 AM EST [facility] ([facility]) (WC ESTOB) enter Est OB [address] [place] [address] 01/07/2020 12:00:00 AM EST eCW1 ([facility]) Outpatient Attender: EZEQUIEL TELLEZ NP [facility]ie[facility] lenz 12/30/2019 10:30:00 AM EDT - 12/30/2019 10:30:00 AM EDT [facility] ([facility]) Attender: EZEQUIEL TELLEZ NP 12/30/2019 12:00:00 AM EDT [facility] ([facility]) Brief Individual Psychotherapy - 30 min Attender: Ericka smith [facility] 12/16/2019 11:00:00 AM EDT - 12/16/2019 11:00:00 AM EDT [facility] ([facility]) Attender: Ericka Michelle 12/16/2019 12:00:00 AM EDT [facility] ([facility]) ( ESTOB) WCenter Est OB [address] [place] [address] 12/08/2019 12:00:00 AM EDT eCW1 ([facility]) Outpatient Attender: EZEQUIEL TELLEZ NP [facility] Eliezer lenz 12/02/2019 11:15:00 AM EDT - 12/02/2019 11:15:00 AM EDT [facility] ([facility]) Attender: EZEQUIEL TELLEZ NP 12/02/2019 12:00:00 AM EDT [facility] ([facility]) Extended Individual Psychotherapy - 45 min Attender: Ericka Michelle [facility] 11/30/2019 11:00:00 AM EDT - 11/30/2019 11:00:00 AM EDT [facility] ([facility]) Attender: Ericka Michelle 11/30/2019 12:00:00 AM EDT [facility] ([facility]) Outpatient Attender: Mirtha Manley MDReferrer: CAITLIN PENG.ANDREWS-SJJon.ANDREWS 11/11/2019 12:00:00 AM EDT [facility] Extended Individual Psychotherapy - 45 min Attender: Ericka Miguel Angel [facility] 11/09/2019 11:00:00 AM EDT - 11/09/2019 11:00:00 AM EDT [facility] ([facility]) Attender: Ericka Michelle 11/09/2019 12:00:00 AM EDT [facility] ([facility]) Outpatient Attender: EZEQUIEL TELLEZ NP [facility]ie[facility] lenz 11/04/2019 09:30:00 AM EDT - 11/04/2019 09:30:00 AM EDT [facility] ([facility]) Attender: EZEQUIEL TELLEZ NP 11/04/2019 12:00:00 AM EDT [facility] ([facility]) TEMPMHCTelemed 30" Psychotherapy Attender: Ericka Aguilar [facility] 09/02/2019 10:00:00 AM EDT - 09/02/2019 10:00:00 AM EDT [facility] ([facility]) Attender: Ericka Miguel Angel 09/02/2019 12:00:00 AM EDT [facility] ([facility]) [id number]"Psychotherapy Attender: Ericka Michelle [facility] 08/20/2019 09:00:00 AM EDT - 08/20/2019 09:00:00 AM EDT [facility] ([facility]) Attender: Ericka Michelle 08/20/2019 12:00:00 AM EDT [facility] ([facility]) Outpatient Attender: EZEQUIEL TELLEZ NP [facility] Elie[facility] lenz 08/17/2019 01:00:00 AM EDT - 08/17/2019 01:00:00 AM EDT [facility] ([facility]) Attender: EZEQUIEL TELLEZ NP 08/17/2019 12:00:00 AM EDT [facility] ([facility]) [id number]"Psychotherapy Attender: Ericka Michelle [facility] 08/06/2019 08:00:00 AM EDT - 08/06/2019 08:00:00 AM EDT [facility] ([facility]) Attender: Ericka Michelle 08/06/2019 12:00:00 AM EDT [facility] ([facility]) Outpatient Attender: WIL NC [facility] 08/04/2019 11:00:02 AM EDT [facility] Outpatient Attender: CAITLIN CAMARGO MDConsultant: CAITLIN Lenz MD 07/29/2019 04:25:00 PM EDT - 07/29/2019 04:25:00 PM EDT [facility] TEMPMHCTelemed 30" [facility] 09:00:00 AM EDT - 07/23/2019 09:00:00 AM EDT [facility] ([facility]) Attender: Ericka Michelle 07/23/2019 12:00:00 AM EDT [facility] ([facility]) Outpatient Attender: CAITLIN CAMARGO MDConsultant: CAITLIN Lenz MD 07/21/2019 02:00:00 PM EDT - 07/21/2019 02:00:00 PM EDT [facility] Outpatient Attender: EZEQUIEL TELLEZ NP [facility] delfin 07/20/2019 09:30:00 AM EDT - 07/20/2019 09:30:00 AM EDT [facility] ([facility]) Attender: EZEQUIEL TELLEZ NP 07/20/2019 12:00:00 AM EDT [facility] ([facility]) Outpatient Attender: Dean Talbert MD [facility] at [facility] acuse 07/14/2019 12:00:00 PM EDT [facility] ([facility]) Outpatient Attender: CAITLIN CAMARGO MDConsultant: CAITLIN Lenz MD 07/06/2019 02:37:00 PM EDT - 07/06/2019 02:37:00 PM EDT [facility] Outpatient Referrer: JOHN COON MD 07/06/2019 04:48:00 AM EDT [facility] [id number]"Psych[facility] 07/06/[facility] 03:30:00 AM EDT - 07/06/2019 03:30:00 AM EDT [facility] ([facility]) Attender: Ericka Miguel Angel 07/06/2019 12:00:00 AM EDT [facility] ([facility]) [id number]"Psychotherapy Attender: Ericka [facility] 06/24/2019 10:00:00 AM EDT - 06/24/2019 10:00:00 AM EDT [facility] ([facility]) Attender: Ericka Michelle 06/24/2019 12:00:00 AM EDT [facility] ([facility]) Outpatient Attender: CAITLIN CAMARGO MDConsultant: CAITLIN Lenz MD 06/23/2019 01:18:00 PM EDT - 06/23/2019 01:18:00 PM EDT [facility] Outpatient Attender: WIL SALAZAR 06/22/2019 08:17:00 AM EDT [facility] Outpatient Attender: EZEQUIEL TELLEZ NP [facility] delfin 06/14/2019 01:00:00 AM EDT - 06/14/2019 01:00:00 AM EDT [facility] ([facility]) Attender: EZEQUIEL TELLEZ NP 06/14/2019 12:00:00 AM EDT [facility] ([facility]) Attender: Ericka Miguel Angel 06/14/2019 12:00:00 AM EDT [facility] ([facility]) [id number]"Psychotherapy Attender: Ericka [facility] 06/10/2019 09:00:00 AM EDT - 06/10/2019 09:00:00 AM EDT [facility] ([facility]) [id number]"Psychotherapy Attender: Ericka [facility] 05/27/2019 11:00:00 AM EDT - 05/27/2019 11:00:00 AM EDT [facility] ([facility]) Attender: Ericka Miguel Angel 05/27/2019 12:00:00 AM EDT [facility] ([facility]) Outpatient Attender: Reina Wilson MDConsultant: CAITLIN CAMARGO MD 05/26/2019 12:40:00 PM EDT - 05/26/2019 12:40:00 PM EDT [facility] [id number]"Psychotherapy Attender: EZEQUIEL TELLEZ NP [facility] 05/24/2019 10:30:00 AM EDT - 05/24/2019 10:30:00 AM EDT [facility] ([facility]) Attender: EZEQUIEL TELLEZ NP 05/24/2019 12:00:00 AM EDT [facility] ([facility]) Outpatient Attender: [facility] 05/18/2019 08:19:01 AM EDT [facility] Outpatient Attender: [facility] 05/12/2019 10:23:01 AM EDT [facility] Extended Individual Psychotherapy - 45 min Attender: Ericka Michelle [facility] 05/12/2019 01:45:00 AM EDT - 05/12/2019 01:45:00 AM EDT [facility] ([facility]) Attender: Ericka Mcguireus 05/12/2019 12:00:00 AM EDT [facility] ([facility]) Extended Individual Psychotherapy - 45 min Attender: Ericka Miguel Angel [facility] 04/27/2019 11:45:00 AM EST - 04/27/2019 11:45:00 AM EST [facility] ([facility]) Outpatient Attender: EZEQUIEL TELLEZ NP [facility] Eliezer lenz 04/27/2019 01:00:00 AM EST - 04/27/2019 01:00:00 AM EST [facility] ([facility]) Attender: EZEQUIEL TELLEZ NP 04/27/2019 12:00:00 AM EST [facility] ([facility]) Attender: Ericka Miguel Angel 04/27/2019 12:00:00 AM EST [facility] ([facility]) Outpatient Attender: Ericka Mcguireus [facility] 10:00:00 AM EST - 04/23/2019 10:00:00 AM EST [facility] ([facility] Attender: Ericka Michelle 04/23/2019 12:00:00 AM EST [facility] ([facility]) Outpatient Attender: EZEQUIEL TELLEZ NP [facility]iezer delfin 04/14/2019 10:30:00 AM EST - 04/14/2019 10:30:00 AM EST [facility] ([facility]) Attender: EZEQUIEL TELLEZ NP 04/14/2019 12:00:00 AM EST [facility] ([facility]) Outpatient Attender: BERNARDO RIVERAeferrer: CAITLIN CAMARGO MD 04/12/2019 12:00:00 AM EST [facility] [address] [place] [id number] 04/06/2019 12:00:00 AM EST eCW1 ([facility]) Extended Individual Psychotherapy - 45 min Attender: Ericka Mcguireus [facility] 03/30/2019 11:00:00 AM EST - 03/30/2019 11:00:00 AM EST [facility] ([facility]) Attender: Ericka Michelle 03/30/2019 12:00:00 AM EST [facility] ([facility]) Outpatient Referrer: JOHN COON MD 03/26/2019 03:17:00 PM EST [facility] Emergency Attender: Manohar Lu PA-CConsultant: CAITLIN VAZQUEZ MD 03/24/2019 04:07:00 PM EST - 03/24/2019 05:41:00 PM EST [facility] Patient discharged. Outpatient Attender: CAITLIN CAMARGO MDConsultant: CAITLIN Lenz MD 03/24/2019 03:10:00 PM EST - 03/24/2019 03:10:00 PM EST [facility] Outpatient Attender: CAITLIN CAMARGO MD Family Practice 03/24/2019 0 2:00:00 PM EST [facility] ([facility]) Outpatient Attender: Lilo Jordan ANP-CReferrer: CRISTIAN CAMARGO MD 03/24/2019 12:00:00 AM [facility] Outpatient Attender: CAITLIN CAMARGO MDConsultant: CAITLIN Lenz MD 03/17/2019 09:53:00 AM EST - 03/17/2019 09:53:00 AM EST [facility] Outpatient Attender: CAITLIN CAMARGO MD Family Practice 03/17/2019 0 9:00:00 AM EST [facility] ([facility]) Extended Individual Psychotherapy - 45 min Attender: Ericka Miguel Angel [facility] 03/16/2019 03:00:00 AM EST - 03/16/2019 03:00:00 AM EST [facility] ([facility]) Attender: Ericka Michelle 03/16/2019 12:00:00 AM EST [facility] ([facility]) Outpatient Attender: EZEQUIEL TELLEZ [employer] HAM[employer] SETTER UP [facility] 03/10/2019 11:30:00 AM EST - 03/10/2019 11:30:00 AM EST [facility] ([facility]) Attender: EZEQUIEL TELLEZ NP 03/10/2019 12:00:00 AM EST [facility] ([facility]) Outpatient Referrer: JOHN COON MD 03/07/2019 04:11:00 PM EST [facility] Extended Individual Psychotherapy - 45 min Attender: Ericka Miguel Angel [facility] 02/26/2019 02:00:00 AM EST - 02/26/2019 02:00:00 AM EST [facility] ([facility]) Attender: Ericka Michelle 02/26/2019 12:00:00 AM EST [facility] ([facility]) Outpatient Attender: CAITLIN CAMARGO MDConsultant: CAITLIN Lenz MD 02/22/2019 01:11:00 PM EST - 02/22/2019 01:11:00 PM EST [facility] Outpatient Attender: CAITLIN CAMARGO MD Family Practice 02/22/2019 1 2:20:00 PM EST [facility] ([facility]) Outpatient Attender: CAITLIN CAMARGO MD 02/15/2019 01:55:00 P M EST R10.9 [facility] R10.9 Outpatient Attender: CAITLIN CAMARGO MDConsultant: CAITLIN Lenz MD 02/15/2019 01:00:00 PM EST - 02/15/2019 01:00:00 PM EST [facility] Outpatient Attender: CAITLIN CAMARGO MD Family Practice 02/15/2019 1 2:00:00 PM EST [facility] ([facility]) Outpatient Attender: [facility] 02/12/2019 12:00:13 PM [facility] Outpatient Attender: [facility] 02/12/2019 11:59:00 AM [facility] Outpatient Attender: [facility] 02/12/2019 11:10:01 AM [facility] Extended Individual Psychotherapy - 45 min Attender: Ericka Michelle [facility] 02/09/2019 01:15:00 AM EST - 02/09/2019 01:15:00 AM EST [facility] ([facility]) Attender: Ericka Michelle 02/09/2019 12:00:00 AM EST [facility] ([facility]) Functional Status Medications Medication Brand Name Start Date Product Form Dose Route Admi nistrative Instructions Pharmacy Instructions Status Indications Reaction Description Data Source(s) Metronidazole 500 MG Oral Tablet Metronidazole 500 MG 2020 12:00:00 AM EST 1.0 {tablet} active Metronidazo le 500 MG eCW1 ([facility]) Metronidazole 500 MG Oral Tablet Metronidazole 500 MG 2020 12:00:00 AM EST 1.0 {tablet} active Metronidazo le 500 MG eCW1 ([facility]) Metronidazole 500 MG Oral Tablet Metronidazole 500 MG 2020 12:00:00 AM EST 1.0 {tablet} suspended Metronid azole 500 MG eCW1 ([facility]) Metronidazole 500 MG Oral Tablet Metronidazole 500 MG 2020 12:00:00 AM EST 1.0 {tablet} active Metronidazo le 500 MG eCW1 ([facility]) Metronidazole 500 MG Oral Tablet Metronidazole 500 MG 2020 12:00:00 AM EST 1.0 {tablet} suspended Metronid azole 500 MG eCW1 ([facility]) Acetaminophen 325 MG / butalbital 50 MG / Caffeine 40 MG Oral Capsule [Esgic] Esgic 50-325-40 MG Esgic 50-325-40 MG 02/28/2020 12:00:00 AM EST active Esgic 50-325-40 MG eCW1 ([facility]) Acetaminophen 325 MG / butalbital 50 MG / Caffeine 40 MG Oral Capsule [Esgic] Esgic 50-325-40 MG Esgic 50-325-40 MG 02/28/2020 12:00:00 AM EST active Esgic 50-325-40 MG eCW1 ([facility]) Acetaminophen 325 MG / butalbital 50 MG / Caffeine 40 MG Oral Capsule [Esgic] Esgic 50-325-40 MG Esgic 50-325-40 MG 02/28/2020 12:00:00 AM EST active Esgic 50-325-40 MG eCW1 ([facility]) Acetaminophen 325 MG / butalbital 50 MG / Caffeine 40 MG Oral Capsule [Esgic] Esgic 50-325-40 MG Esgic 50-325-40 MG 02/28/2020 12:00:00 AM EST active Esgic 50-325-40 MG eCW1 ([facility]) Acetaminophen 325 MG / butalbital 50 MG / Caffeine 40 MG Oral Capsule [Esgic] Esgic 50-325-40 MG Esgic 50-325-40 MG 02/28/2020 12:00:00 AM EST active Esgic 50-325-40 MG eCW1 ([facility]) Acetaminophen 325 MG / butalbital 50 MG / Caffeine 40 MG Oral Capsule [Esgic] Esgic 50-325-40 MG Esgic 50-325-40 MG 02/28/2020 12:00:00 AM EST active Esgic 50-325-40 MG eCW1 ([facility]) Acetaminophen 325 MG / butalbital 50 MG / Caffeine 40 MG Oral Capsule [Esgic] Esgic 50-325-40 MG Esgic 50-325-40 MG 02/28/2020 12:00:00 AM EST active Esgic 50-325-40 MG eCW1 ([facility]) lamotrigine 25 MG Oral Tablet lamotrigine 07/20/2019 12:00:00 AM EDT 25 mg by mouth completed [id number] lamotrigine by mouth [id number] 07/1908/19/2019 once a day 30 25 mg tablet 55551 [id number] Lela shay Tellez [id number] Nurse Practitioner [facility] Sumatriptan 100 MG Oral Tablet Sumatriptan Succinate 07/14/2019 12:00:00 AM EDT active MED[facility] ( [facility]) Aimovig Aimovig 07/14/2019 12:00:00 AM EDT SUBCUTANEOUS active [facility] ([facility]) valacyclovir 1000 MG Oral Tablet Valacyclovir HCL 05/26/2019 12:00: 00 AM EDT ORAL completed [facility] ([facility]) Cholecalciferol 1000 UNT Oral Tablet Vitamin D 05/26/2019 12:00:00 A M EDT ORAL active [facility] ([facility]) Fluoxetine 20 MG Oral Capsule [Prozac] Prozac 04/27/2019 12:0 0:00 AM EST 20 mg by mouth completed [id number] Prozac by mouth [id number] 2019 once a day 30 20 mg capsule 72530 [id number] Ezequiel Tellez [id number] Nurse Practitioner [facility] ([facility]) Fluoxetine 20 MG Oral Capsule [Prozac] Prozac 04/27/2019 12:0 0:00 AM EST 20 mg by mouth completed [id number] Prozac by mouth [id number] 0 04/27/2019 07/26/2019 once a day 30 20 mg capsule [id number] Shara Tellez [id number] Nurse Practitioner [facility] ([facility]) Divalproex Sodium 125 MG Delayed Release Oral Capsule [Depakote] Depakote Sprinkles 04/27/2019 12:00:00 AM EST 125 mg by mouth comple juliana [id number] Depakote Sprinkles by mouth [id number] 04/27/2019 05/24/2019 at bedtime 30 125 mg capsule, delayed rel sprinkle [id number] [id number] Ezequiel Tellez [id number] Nurse Practitioner [facility] ([facility]) Divalproex Sodium 125 MG Delayed Release Oral Capsule [Depakote] Depakote Sprinkles 04/27/2019 12:00:00 AM EST 125 mg by mouth comple juliana [id number] Depakote Sprinkles by mouth [id number] 04/27/2019 05/27/2019 at bedtime 30 125 mg capsule, delayed rel sprinkle [id number] Ezequiel Tellez [id number] Nurse Practitioner [facility] ([facility]) Fluoxetine 20 MG Oral Capsule [Prozac] Prozac 04/27/2019 12:0 0:00 AM EST 20 mg by mouth completed [id number] Prozac by mouth [id number] 0 04/27/2019 08/22/2019 once a day 30 20 mg capsule [id number] Shara Tellez [id number] Nurse Practitioner [facility] ([facility]) Fluoxetine 10 MG Oral Capsule [Prozac] Prozac 04/14/2019 12:0 0:00 AM EST 10 mg by mouth completed [id number] Prozac by mouth [id number] 0 04/14/2019 07/13/2019 once a day 30 10 mg capsule 04490 [id number] Shara Tellez [id number] Nurse Practitioner [facility] ([facility]) Prazosin 1 MG Oral Capsule prazosin 03/10/2019 12:00:00 AM EST 1 mg by mouth completed [id number] prazosin by mouth [id number] 03/10/201902/2020 at bedtime 30 1 mg capsule 57150 [id number] Ezequiel Tellez [id number] Nurse Practitioner [facility] ([facility]) Ibuprofen 600 MG Oral Tablet Ibuprofen 02/23/2019 12:00:00 AM EST ORAL completed [facility] ([facility]) Acetaminophen 250 MG / Aspirin 250 MG / Caffeine 65 MG Oral Tablet [Excedrin] Excedrin Extra Strength 02/15/2019 12:00:00 AM EST completed [facility] ([facility]) Omeprazole 20 MG Delayed Release Oral Capsule Omeprazole 02/15/2019 12:00:00 AM EST ORAL completed [facility] ([facility]) Insurance Providers Payer name Policy type / Coverage type Policy ID Covered alliance party ID Covered alliance party's relationship to banda Policy Banda Plan Information FORMERLY [facility] COMMUNITY PLAN [facility] [id number] SP [id number] FORMERLY [facility] COMMUNITY PLAN [facility] [id number] SP [id number] FORMERLY [facility] COMMUNITY PLAN [facility] [id number] SP [id number] [facility] O [id number] S [id number] [facility] I [id number] Self [id number] [facility] MEDICAID [id number] Paula [id number] Managed Care - [facility] Community Plan P [id number] S [id number] Medicaid S [id number] S [id number] UHC COMMUNTY PLAN [id number] 18 [id number] UNHC COMMUNITY PLAN XIX [id number] 18 [id number] [facility] COMMUNITY PLAN [id number] 18 [id number] Managed Care - [facility] Community Plan P [id number] S [id number] UNHC AMERICHOICE XIX -HMO [id number] 18 [id number] UNHC COMMUNITY PLAN MCDHMO [id number] SP [id number] UNHC AMERICHOICE XIX -HMO [id number] 18 [id number] UNHC AMERICHOICE XIX -HMO [id number] 18 [id number] UNHC COMMUNITY PLAN XIX [id number] 18 [id number] [facility] COMMUNTY PLAN [id number] 18 [id number] MEDICAID M [id number] Self [id number] UNHC COMMUNITY PLAN MCDHMO [id number] SP [id number] [facility]) O [id number] S [id number] Managed Care - [facility] Community Plan P [id number] S [id number] [facility] Community Plan Commercial [id number] Self [id number] [facility] Communty Plan Medicaid [id number] Self [id number] [facility] I [id number] Self [id number] Managed Care - Community Plan [facility] P [id number] S [id number] Medicaid S [id number] S [id number] [facility] Community Plan Commercial [id number] Self [id number] [facility] Communty Plan Medicaid [id number] Self [id number] [facility] Community Plan Commercial [id number] Self [id number] [facility] Communty Plan Medicaid [id number] Self [id number] [facility] COMMUNITY PLAN MCDHMO [id number] SP [id number] [facility] Community Plan Commercial [id number] Self [id number] [facility] Communty Plan Medicaid [id number] Self [id number] [facility] Communty Plan Medicaid [id number] Self [id number] [facility] Community Plan Commercial [id number] Self [id number] [facility] Communty Plan Medicaid [id number] Self [id number] [facility] Community Plan Commercial [id number] Self [id number] UNHC COMMUNITY PLAN MCDHMO [id number] SP [id number] [facility] HEA [id number] S [id number] UNAVAILABLE [place] BLE [facility] HEA [id number] S [id number] [facility] Community Plan Commercial [id number] Self [id number] [facility] Communty Plan Medicaid [id number] Self [id number] UNHC COMMUNITY PLAN XIX [id number] 18 [id number] [facility] Communty Plan Medicaid [id number] Self [id number] [facility] Community Plan Commercial [id number] Self [id number] [employer] BCBS Medigap Part B [id number] Self [id number] [facility] Health Maintenance Organization (HMO) [id number] Self [id number] [facility] [id number] 18 [id number] UNHC COMMUNITY PLAN MCDHMO [id number] SP [id number] [facility] Winifred Plan Medigap Part B [id number] Self [id number] [facility] Community Plan Commercial [id number] Self [id number] [facility] EMPIRE PLAN HM [id number] 18 [id number] [facility] [id number] 18 [id number] [facility](MCAID) O [id number] S [id number] [facility] Medigap Part B [id number] Self [id number] [facility] - Commercial [id number] Self [id number] [facility] [place] [id number] 18 [id number] UNHC COMMUNITY PLAN MCDHMO [id number] SP [id number] [facility] Medigap Part B [id number] Self [id number] [facility] Commercial [id number] Self [id number] [facility](MCAID) O [id number] S [id number] UNHC COMMUNITY PLAN MCDHMO [id number] SP [id number] UNHC AMERICHOICE XIX -HMO [id number] 18 [id number] UNHC COMMUNITY PLAN MCDHMO [id number] SP [id number] [facility] O [id number] S [id number] UNHC COMMUNITY PLAN MCDHMO [id number] SP [id number] UNHC COMMUNITY PLAN MCDHMO [id number] SP [id number] Medicaid S [id number] S [id number] Managed Care - Community Plan [facility] P [id number] S [id number] MEDICAID - CLINIC [id number] [facility] I [id number] Self [id number] UNHC AMERICHOICE O [id number] 18 [id number] MEDICAID-O/P [id number] 18 [id number] [facility] Comm Plan Medicaid F [id number] SELF [id number] [facility] Commercial Self Medicaid S [id number] S [id number] Managed Care - Community Plan [employer] P [id number] S [id number] [facility] UNAVAILABLE S [place] BLE Medicaid S [id number] S [id number] [facility] [place] PLAN [id number] SP [id number] [facility] BLUE [id number] SP [id number] Problems, Conditions, and Diagnoses Code Display Name Description Problem Type Effective Dates Data Source(s) F14.20 Cocaine dependence, uncomplicated Stimul ant Use Disorder. Severe: Cocaine Condition 03/24/2020 12:00:00 AM EST [facility] ([facility]) F41.1 Generalized anxiety disorder Generalized Anxiety Disor milena Condition 03/24/2020 12:00:00 AM EST [facility] ([facility]) F43.12 Post-traumatic stress disorder, chronic Post-traumatic stress disorder, chronic Condition 03/24/2020 12:00:00 AM EST [facility] ([facility]) O99.213 Obesity complicating , third tr imester Obesity complicating in third trimester Problem 03/23/2020 12:00:00 AM EST eCW1 ([facility]) Z34.80 care Supervision of other normal Jon ramirez 12/07/2019 12:00:00 AM EDT eCW1 ([facility]) O99.212 [id number] Obesity complicating in second trimester Problem 12/07/2019 12:00:00 AM EDT eCW1 ([facility]) M79.7 [id number] Fibromyalgia Problem 04/06/2019 12:00:00 AM EST eCW1 ([facility]) R79.82 [id number] Elevated C-reactive protein (CRP) Prob jessa 04/06/2019 12:00:00 AM EST eCW1 ([facility]) M79.7 [id number] Fibromyalgia Problem 04/06/2019 12:00:00 AM EST eCW1 ([facility]) R79.82 [id number] Elevated C-reactive protein (CRP) Prob jessa 04/06/2019 12:00:00 AM [facility] ([facility]) shingles with occular involvement shingles with occula r involvement Diagnosis 03/02/2020 10:20:00 AM [facility] R07.9 Chest pain, unspecified Chest pain, unspecified Diagno sis 11/11/2019 10:34:12 AM EDT [facility] R0789 Other chest pain Other chest pain Diagnosis 07/29/2019 04 :25:00 PM EDT [facility] R569 Unspecified convulsions Unspecified convulsions Diagno sis 07/29/2019 04:25:00 PM EDT [facility] R945 Abnormal results of liver function studi es Abnormal results of liver function studies Diagnosis 07/29/2019 04:25:00 PM EDT [facility] E669 Obesity, unspecified Obesity, unspecified Diagnosis 06/23/2019 01:18:00 PM EDT [facility] E559 Vitamin D deficiency, unspecified Vitamin D defi ciency, unspecified Diagnosis 06/23/2019 01:18:00 PM EDT [facility] B029 Zoster without complications Zoster without complicati ons Diagnosis 05/26/2019 12:40:00 PM EDT [facility] Y9289 Other specified places as the place of o ccurrence of the external cause Other specified places as the place of occurrence of the external cause Diagnosis 03/24/2019 04:07:00 PM [facility] [id number] Other fall on same level, initial encoun ter Other fall on same level, initial encounter Diagnosis 03/24/2019 04:07:00 PM [facility] [id number] Contusion of lower back and pelvis, init ial encounter Contusion of lower back and pelvis, initial encounter Diagnosis 03/24/2019 04:07:00 PM E [facility] [id number] Unspecified injury of lower back, initia l encounter Unspecified injury of lower back, initial encounter Diagnosis 03/24/2019 04:07:00 PM [facility] H9193 Unspecified hearing loss, bilateral Unspecified hearing loss, bilateral Diagnosis 03/17/2019 09:53:00 AM [facility] M542 Cervicalgia Cervicalgia Diagnosis 03/17/2019 09:53:00 AM [facility] [id number] Strain of muscle, fascia and tendon at n fabiana level, initial encounter Strain of muscle, fascia and tendon at neck level, initial encounter Diagnosis 03/17/2019 09:53:00 AM [facility] K219 Gastro-esophageal reflux disease without esophagitis Gastro-esophageal reflux disease without esophagitis Diagnosis 02/22/2019 01:11:00 PM ES T [facility] R109 Unspecified abdominal pain Unspecified abdominal pain Diagnosis 02/22/2019 01:11:00 PM [facility] Surgeries/Procedures Procedure Description Date Indications Data Source(s) Extended Individual Psychotherapy - 45 min 03/24/2020 12:00:00 AM EST - 03/24/2020 12:00:00 AM EST [facility] ([facility]) Extended Individual Psychotherapy - 45 min 12:00:00 AM EST [facility] ([facility]) NONSTRESS TEST 03/23/2020 12:00:00 AM EST eCW1 ([facility]) MHC Telemed E/M Lvl 3--Est pt 03/21/2020 12:00:00 AM EST - 03/21/2020 12:00:00 AM EST [facility] ([facility]) Psychotherapy ADD ON - 30 Minutes 03/21/2020 12:00:00 AM EST [facility] ([facility]) MHC Telemed E/M Lvl 3--Est pt 03/21/2020 12:00:[address] [facility] ([facility]) Extended Individual Psychotherapy - 45 min 03/17/2020 12:00:00 AM EST - 03/17/2020 12:00:00 AM EST [facility] ([facility]) Extended Individual Psychotherapy - 45 min 12:00:00 AM EST [facility] ([facility]) NONSTRESS TEST 03/16/2020 12:00:00 AM EST eCW1 ([facility]) NONSTRESS TEST 03/08/2020 12:00:00 AM EST eCW1 ([facility]) Extended Individual Psychotherapy - 45 min 03/06/2020 12:00:00 AM EST - 03/06/2020 12:00:00 AM EST [facility] ([facility]) Extended Individual Psychotherapy - 45 min 12:00:00 AM EST [facility] ([facility]) Nurse Visit Blood Pressure Check 02/28/2020 12:00:00 A M EST eCW1 ([facility]) Extended Individual Psychotherapy - 45 min 02/11/2020 12:00:00 AM EST - 02/11/2020 12:00:00 AM EST [facility] ([facility]) Extended Individual Psychotherapy - 45 min 0 12:00:00 AM EST [facility] ([facility]) OFFICE OUTPATIENT VISIT 15 MINUTES 01/24 12:00:00 AM EST - 01/25/2020 12:00:00 AM EST [facility] ([facility]) OFFICE OUTPATIENT VISIT 15 MINUTES 01/25/2020 12:00:00 AM EST [facility] ([facility]) Extended Individual Psychotherapy - 45 min 01/25/2020 12:00:00 AM EST - 01/25/2020 12:00:00 AM EST [facility] ([facility]) Extended Individual Psychotherapy - 45 min 0 12:00:00 AM EST [facility] ([facility]) Extended Individual Psychotherapy - 45 min 01/10/2020 12:00:00 AM EST - 01/10/2020 12:00:00 AM EST [facility] ([facility]) Extended Individual Psychotherapy - 45 min 0 12:00:00 AM EST [facility] ([facility]) OFFICE OUTPATIENT VISIT 15 MINUTES 12/29 12:00:00 AM EDT - 12/30/2019 12:00:00 AM EDT [facility] ([facility]) OFFICE OUTPATIENT VISIT 15 MINUTES 12/30/2019 12:00:00 AM EDT [facility] ([facility]) Brief Individual Psychotherapy - 30 min 12/16/2019 12:00:00 AM EDT - 12/16/2019 12:00:00 AM EDT [facility] ([facility]) Brief Individual Psychotherapy - 30 min 12/16/2019 12: 00:00 AM EDT [facility] ([facility]) MHC Telemed E/M Lvl 3--Est pt 12/02/2019 12:00:00 AM EDT - 12/02/2019 12:00:00 AM EDT [facility] ([facility]) Psychotherapy ADD ON - 30 Minutes 12/02/2019 12:00:00 AM EDT [facility] ([facility]) MHC Telemed E/M Lvl 3--Est pt 12/02/2019 12:00:00 AM E DT [facility] ([facility]) Extended Individual Psychotherapy - 45 min 11/30/2019 12:00:00 AM EDT - 11/30/2019 12:00:00 AM EDT [facility] ([facility]) Extended Individual Psychotherapy - 45 min 0 12:00:00 AM EDT [facility] ([facility]) Extended Individual Psychotherapy - 45 min 11/09/2019 12:00:00 AM EDT - 11/09/2019 12:00:00 AM EDT [facility] ([facility]) Extended Individual Psychotherapy - 45 min 0 12:00:00 AM EDT [facility] ([facility]) MHC Telemed E/M Lvl 3--Est pt 11/04/2019 12:00:00 AM EDT - 11/04/2019 12:00:00 AM EDT [facility] ([facility]) Psychotherapy ADD ON - 30 Minutes 11/04/2019 12:00:00 AM EDT [facility] ([facility]) MHC Telemed E/M Lvl 3--Est pt 11/04/2019 12:00:00 AM E DT [facility] ([facility]) TEMPMHCTelemed 30" Psychotherapy 020 12:00:00 AM EDT - 09/02/2019 12:00:00 AM EDT [facility] ([facility]) TEMPMHCTelemed 30" Psychotherapy 09/02/2019 12:00:00 A M EDT [facility] ([facility]) [id number]"Psychotherapy 0 12:00:00 AM EDT - 08/20/2019 12:00:00 AM EDT [facility] ([facility]) [id number]"Psychotherapy 08/20/2019 12:00:00 AM EDT [facility] ([facility]) MHC Telemed E/M Lvl 3--Est pt 08/17/2019 12:00:00 AM EDT - 08/17/2019 12:00:00 AM EDT [facility] ([facility]) Psychotherapy ADD ON - 30 Minutes 08/17/2019 12:00:00 AM EDT [facility] ([facility]) MHC Telemed E/M Lvl 3--Est pt 08/17/2019 12:00:00 AM E DT [facility] ([facility]) [id number]"Psychotherapy 0 12:00:00 AM EDT - 08/06/2019 12:00:00 AM EDT [facility] ([facility]) [id number]"Psychotherapy 08/06/2019 12:00:00 AM EDT [facility] ([facility]) TEMPMHCTelemed 30" Psychotherapy 020 12:00:00 AM EDT - 07/23/2019 12:00:00 AM EDT [facility] ([facility]) TEMPMHCTelemed 30" Psychotherapy 07/23/2019 12:00:00 A M EDT [facility] ([facility]) MHC Telemed E/M Lvl 3--Est pt 07/20/2019 12:00:00 AM EDT - 07/20/2019 12:00:00 AM EDT [facility] ([facility]) MHC Telemed E/M Lvl 3--Est pt 07/20/2019 12:00:00 AM E DT [facility] ([facility]) [id number]"Psychotherapy 0 12:00:00 AM EDT - 07/06/2019 12:00:00 AM EDT [facility] ([facility]) [id number]"Psychotherapy 07/06/2019 12:00:00 AM EDT [facility] ([facility]) [id number]"Psychotherapy 0 12:00:00 AM EDT - 06/24/2019 12:00:00 AM EDT [facility] ([facility]) [id number]"Psychotherapy 06/24/2019 12:00:00 AM EDT [facility] ([facility]) MHC Telemed E/M Lvl 3--Est pt 06/14/2019 12:00:00 AM EDT - 06/14/2019 12:00:00 AM EDT [facility] ([facility]) MHC Telemed E/M Lvl 3--Est pt 06/14/2019 12:00:00 AM E DT [facility] ([facility]) [id number]"Psychotherapy 0 12:00:00 AM EDT - 06/14/2019 12:00:00 AM EDT [facility] ([facility]) [id number]"Psychotherapy 06/10/2019 12:00:00 AM EDT [facility] ([facility]) [id number]"Psychotherapy 0 12:00:00 AM EDT - 05/27/2019 12:00:00 AM EDT [facility] ([facility]) [id number]"Psychotherapy 05/27/2019 12:00:00 AM EDT [facility] ([facility]) [id number]"Psychotherapy 0 12:00:00 AM EDT - 05/24/2019 12:00:00 AM EDT [facility] ([facility]) [id number]"Psychotherapy 05/24/2019 12:00:00 AM EDT [facility] ([facility]) Extended Individual Psychotherapy - 45 min 05/12/2019 12:00:00 AM EDT - 05/12/2019 12:00:00 AM EDT [facility] ([facility]) Extended Individual Psychotherapy - 45 min 0 12:00:00 AM EDT [facility] ([facility]) OFFICE OUTPATIENT VISIT 15 MINUTES 04/27 12:00:00 AM EST - 04/27/2019 12:00:00 AM EST [facility] ([facility]) OFFICE OUTPATIENT VISIT 15 MINUTES 04/27/2019 12:00:00 AM EST [facility] ([facility]) Extended Individual Psychotherapy - 45 min 04/27/2019 12:00:00 AM EST - 04/27/2019 12:00:00 AM EST [facility] ([facility]) Extended Individual Psychotherapy - 45 min 0 12:00:00 AM EST [facility] ([facility]) OFFICE OUTPATIENT VISIT 15 MINUTES 04/23 12:00:00 AM EST - 04/23/2019 12:00:00 AM EST [facility] ([facility]) OFFICE OUTPATIENT VISIT 15 MINUTES 04/23/2019 12:00:00 AM EST [facility] ([facility]) OFFICE OUTPATIENT VISIT 15 MINUTES 04/14 12:00:00 AM EST - 04/14/2019 12:00:00 AM EST [facility] ([facility]) OFFICE OUTPATIENT VISIT 15 MINUTES 04/14/2019 12:00:00 AM EST [facility] ([facility]) Extended Individual Psychotherapy - 45 min 03/30/2019 12:00:00 AM EST - 03/30/2019 12:00:00 AM EST [facility] ([facility]) Extended Individual Psychotherapy - 45 min 0 12:00:00 AM EST [facility] ([facility]) Extended Individual Psychotherapy - 45 min 03/16/2019 12:00:00 AM EST - 03/16/2019 12:00:00 AM EST [facility] ([facility]) Extended Individual Psychotherapy - 45 min 0 12:00:00 AM EST [facility] ([facility]) OFFICE OUTPATIENT VISIT 15 MINUTES 03/10 12:00:00 AM EST - 03/10/2019 12:00:00 AM EST [facility] ([facility]) OFFICE OUTPATIENT VISIT 15 MINUTES 03/10/2019 12:00:00 AM EST [facility] ([facility]) Extended Individual Psychotherapy - 45 min 02/26/2019 12:00:00 AM EST - 02/26/2019 12:00:00 AM EST [facility] ([facility]) Extended Individual Psychotherapy - 45 min 9 12:00:00 AM EST [facility] ([facility]) Extended Individual Psychotherapy - 45 min 02/09/2019 12:00:00 AM EST - 02/09/2019 12:00:00 AM EST [facility] ([facility]) Extended Individual Psychotherapy - 45 min 9 12:00:00 AM EST [facility] ([facility]) Results ID Date Data Source TOTAL PROTEIN,RANDOM URINE 03/08/2020 12:00:00 AM EST eCW1 ( [facility]) Name Value Range Interpretation Code Description Data Rema rce(s) Supporting Document(s) 17.2 0.0-12.0 TOTAL PROTEIN,RANDOM URIN E eCW1 ([facility]) ID Date Data Source CREATININE,RANDOM URINE 03/08/2020 12:00:00 AM EST eCW1 ([facility]) Name Value Range Interpretation Code Description Data Rema rce(s) Supporting Document(s) 141.0 CREATININE,RANDOM URINE eCW1 ( [facility]) ID Date Data Source Pre Eclampsia Profile 03/08/2020 12:00:00 AM EST eCW1 ([facility]) Name Value Range Interpretation Code Description Data Rema rce(s) Supporting Document(s) 0.62 0.55-1.30 CREATININE FOR GFR eCW1 ([facility]) 7 7-37 AST/SGOT eCW1 ([facility]) > 60.0 >60 GLOMERULAR FILTRATION RATE eCW 1 ([facility]) 16 12-78 ALT/SGPT eCW1 ([facility]) 145 84-246 LDH LACTATE DEHYDROGENASE eCW1 ([facility]) 3.6 2.6-6.0 URIC ACID eCW1 ([facility]) 0.2 0.2-1.0 BILIRUBIN,TOTAL eCW1 ([facility]) ID Date Data Source CBC - Complete Blood Count 03/08/2020 12:00:00 AM EST eCW1 ( [facility]) Name Value Range Interpretation Code Description Data Rema rce(s) Supporting Document(s) 4.37 4.00-5.40 RED BLOOD COUNT eCW1 ([facility]) 12.0 4.0-10.0 WHITE BLOOD COUNT eCW1 ([facility]) 30.4 27.0-33.0 MEAN CORPUSCULAR HEMOGLOB IN eCW1 ([facility]) 40.0 36.0-47.0 HEMATOCRIT eCW1 ([facility]) 91.5 80.0-96.0 MEAN CORPUSCULAR VOLUME e CW1 ([facility]) 13.3 12.0-15.5 HEMOGLOBIN eCW1 ([facility]) 214 150-450 PLATELET COUNT, AUTOMATED eCW1 ([facility]) 13.5 11.5-14.5 RED CELL DISTRIBUTION WID TH eCW1 ([facility]) 33.3 32.0-36.5 MEAN CORPUSCULAR HGB CONC eCW1 ([facility]) ID Date Data Source Glucose Challenge Test 1 Hour 01/24/2020 12:00:00 AM EST eCW 1 ([facility]) Name Value Range Interpretation Code Description Data Rema rce(s) Supporting Document(s) 121 LESS THAN 140 GLUCOSE CHALLENGE TEST 1 HOUR eCW1 ([facility]) ID Date Data Source Type and Screen (D Rh Antibody Screen) 01/24/2020 12:00:00 A M EST eCW1 ([facility]) Name Value Range Interpretation Code Description Data Rema rce(s) Supporting Document(s) NEGATIVE AB SCREEN (INDIRECT COOMB S)VIS eCW1 ([facility]) O POSITIVE BLOOD TYPE eCW1 ([facility]) ID Date Data Source WWBC OBS COMPLETE US 12/21/2019 03:14:36 AM EDT eCW1 ([facility]) Name Value Range Interpretation Code Description Data Rema rce(s) Supporting Document(s) eCW1 ([facility]) ID Date Data Source PAP REQUEST FOR SERVICE 12/13/2019 02:40:09 AM EDT eCW1 ([facility]) Name Value Range Interpretation Code Description Data Rema rce(s) Supporting Document(s) eCW1 ([facility]) ID Date Data Source HEPATITIS C ANTIBODY INDEX 12/13/2019 02:39:54 AM EDT eCW1 ( [facility]) Name Value Range Interpretation Code Description Data Rema rce(s) Supporting Document(s) 1.1 eCW1 ([facility]) ID Date Data Source HBSAG 12/09/2019 10:34:13 AM EDT eCW1 ([facility]) Name Value Range Interpretation Code Description Data Rema rce(s) Supporting Document(s) NEGATIVE eCW1 ([facility]) ID Date Data Source RUBELLA IMMUNE STATUS IgG 12/09/2019 10:33:58 AM EDT eCW1 ([facility]) Name Value Range Interpretation Code Description Data Rema rce(s) Supporting Document(s) IMMUNE eCW1 ([facility]) ID Date Data Source SYPHILIS ANTIBODY (RPR SCREEN) 12/09/2019 10:33:52 AM EDT eC W1 ([facility]) Name Value Range Interpretation Code Description Data Rema rce(s) Supporting Document(s) NONREACTIVE eCW1 ([facility]) ID Date Data Source [id number] 12/09/2019 10:19:01 AM EDT eCW1 ([facility]) Name Value Range Interpretation Code Description Data Rema rce(s) Supporting Document(s) eCW1 ([facility]) ID Date Data Source [id number] 10/24/2019 06:15:00 PM EDT [facility] ([facility]) Name Value Range Interpretation Code Description Data Rema rce(s) Supporting Document(s) Reflex Urine Culture Laboratory test result Norm al (applies to non-numeric results) [facility] ([facility]) <content>FULL REPORT IN LAB NOTES (eCW a nd [facility]).</content>
<content></content>
<content>ORGANISM 1: ESCHERICHIA COLI</content>
<content></content>
<content>COLONY COUNT 30,000</content>
<content></content>
<content></content>
<content>OR GANISM 1: ESCHERICHIA COLI</content>
<content></content>
<content> ESCHERICHIA COLI: REACTION</content>
<content>TRIMETHOPRIM/SULFAMETHOXAZOLE IV 160mg TMP & 800mg SMXq6h <=20 S</content>
<content> TRIMETHOPRIM/SULFAMETHOXAZOLE PO Bactrim DS Bid <=20 S</content>
<content>AMPICILLIN IV 500mg q6h >=32 R</content>
<content>AMPICILLIN PO 500mg q6h fasting >=32 R</content>
<content>GENTAMICIN IV 80mg q8h <=1 S</content>
<content>NITROFURANTOIN PO 100mg BID <=16 S</content>
<content>CEFAZOLIN IV 1gm q8h <=4 S</content>
<content>LEVOFLOXACIN IV 500mg qd <=0.12 S</content>
<content>LEVOFLOXACIN PO 250mg qd <=0.12 S</content>
<content>LEVOFLOXACIN PO 500mg qd <=0.12 S</content>
<content>TOBRAMYCIN IV 80mg q8h <=1 S</content>
<content> CEFTRIAXONE IV 1gm q24h <=1 S</content>
<content>CEFTAZIDIME IV 1gm q8h <=1 S</content>
<content>AMPICILLIN/SULBACTAM IV 1.5g q6h 16 I</content>
<content>PIPERACILLIN/TAZOBACTAM IV 2.25 gm q6h <=4 S</content>
<content>AZTREONAM IV 1gm q8h <=1 S</content>
<content>ERTAPENEM IV 1gm qd <=0.5 S</content>
<content> MEROPENEM IV 1 gm q8h <=0.25 S</content>
<content>MEROPENEM IV 500 mg q8h <=0.25 S</content>
<content>TIGECYCLINE IV 50mg q12h <=0.5 S</content>
<content>CEFEPIME IV 1 gm q12h <=1 S</content>
<content>CEFEPIME IV 2 gm q12h <=1 S</content>
<content>EXTD BRD SPCTRM BETA LACTAMASE IV NEGATIVE FOR ESBL</content>
<content></content> ID Date Data Source [id number] 10/24/2019 06:15:00 PM EDT [facility] ([facility]) Name Value Range Interpretation Code Description Data Rema rce(s) Supporting Document(s) Appearance, Urine RFX Laboratory test result Above high no rmal [facility] ([facility]) Color, Urine RFX Laboratory test result Normal ( applies to non-numeric results) [facility] ([facility]) PH,Urine RFX 5.0 units 5.0-9.0 Normal (applies to non-numeric res ults) [facility] ([facility]) Specific [place] Ur Auto RFX 1.021 1.002-1.035 Nor mal (applies to non-numeric results) [facility] ([facility]) Protein, Urine Auto RFX Laboratory test result N ormal (applies to non-numeric results) [facility] ([facility]) Ketone, Urine Auto RFX Laboratory test result Above high n ormal [facility] ([facility]) Glucose, Urine (Ua) Auto RFX Laboratory test result Normal (applies to non- numeric results) [facility] ([facility]) Urobilinogen, Urine Auto RFX 0.2 mg/dL 0.0-2.0 Nor mal (applies to non-numeric results) [facility]) Bilirubin, Urine Auto RFX Laboratory test result Normal (applies to non- numeric results) [facility] ([facility]) Blood, Urine Blood RFX Laboratory test result No rmal (applies to non-numeric results) [facility] ([facility]) Nitrite, Urine Auto RFX Laboratory test result N ormal (applies to non-numeric results) [facility] ([facility]) Leukocyte Esterase Ur Auto RFX Laboratory test result Abov e high normal [facility] ([facility]) WBC, Urine Auto RFX 2 /HPF 0-3 Normal (applies to non-nume zeny results) [facility] ([facility]) RBC, Urine Auto RFX 2 /HPF 0-3 Normal (applies to non-nume zeny results) [facility] ([facility]) Bacteria, Urine Auto RFX Laboratory test result Normal (applies to non-numeric results) [facility] ([facility]) Squam Epithelial Cell Ur Aurfx 5 /HPF 0-6 N ormal (applies to non-numeric results) [facility] ([facility]) Hyaline Cast, Urine Auto RFX 0 /LPF 0-1 Normal (appl ies to non-numeric results) [facility] ([facility]) Mucus, Urine RFX Laboratory test result Normal ( applies to non-numeric results) [facility] ([facility]) ID Date Data Source [id number] 10/24/2019 05:33:00 PM EDT [facility] ([facility]) Name Value Range Interpretation Code Description Data Rema rce(s) Supporting Document(s) Lipase [Enzymatic activity/volume] in Serum or Plasma 72 U/L 73-393 Below low normal [facility] ([facility]) <content>note:<nlbl:demographic_changed> </content>
<content></content> ID Date Data Source [id number] 10/24/2019 05:33:00 PM EDT [facility] ([facility]) Name Value Range Interpretation Code Description Data Rema rce(s) Supporting Document(s) Glucose, Fasting 88 mg/dL 70-100 Normal (applies to non-numeric results) [facility] ([facility]) Blood Urea Nitrogen 9 mg/dL 7-18 Normal (applies to non-nume zeny results) [facility] ([facility]) Glomerular Filtration Rate Laboratory test result Normal (applies to non- numeric results) [facility]) <content>Units are mL/min/1.73 m2</content>
<content></content>
<content>Chronic Kidney Disease Staging per NKF:</content>
<content></content>
<content>Stage I & II GFR >=60 Normal to Mildly Decreased</content>
<content>Stage III GFR 30-59 Moderately Decreased</content>
<content>Stage IV GFR 15-29 Severely Decreased</content>
<content>Stage V GFR <15 Very Little GFR Left</content>
<content>ESRD GFR <15 on [employer]</content>
<content></content> Creatinine For GFR 0.69 mg/dL 0.55-1.30 Normal (applies to non -numeric results) [facility] ([facility]) Sodium Level 139 meq/L 136-145 Normal (applies to non-numeric res ults) [facility] ([facility]) Potassium Serum 3.9 meq/L 3.5-5.1 Normal (applies to non-numeric results) [facility] ([facility]) Carbon Dioxide Level 23 meq/L 21-32 Normal (applies to non-num prashanth results) [facility] ([facility]) Chloride Level 108 meq/L 98-107 Above high normal [facility] ([facility]) Calcium Level 8.6 mg/dL 8.5-10.1 Normal (applies to non-numeric re sults) [facility] ([facility]) Anion Gap 8 meq/L 8-16 Normal (applies to non-numeric resul ts) [facility] ([facility]) ID Date Data Source [id number] 10/24/2019 05:33:00 PM EDT [facility] ([facility]) Name Value Range Interpretation Code Description Data Rema rce(s) Supporting Document(s) Alt/SGPT 23 U/L 12-78 Normal (applies to non-numeric resul ts) [facility] ([facility]) Ast/Sgot 15 U/L 7-37 Normal (applies to non-numeric resul ts) [facility] ([facility]) Alkaline Phosphatase 80 U/L 45-117 Normal (applies to non-num prashanth results) [facility] ([facility]) Bilirubin,Total 0.4 mg/dL 0.2-1.0 Normal (applies to non-numeric results) [facility] ([facility]) Total Protein 7.1 GM/DL 6.4-8.2 Normal (applies to non-numeric re sults) [facility] ([facility]) Bilirubin,Direct 0.1 mg/dL 0.0-0.2 Normal (applies to non-numeric results) [facility] ([facility]) Albumin 3.2 GM/DL 3.2-5.2 Normal (applies to non-numeric resul ts) [facility] ([facility]) Albumin/Globulin Ratio 0.8 1.2-2.2 Below low normal [facility] ([facility]) ID Date Data Source [id number] 10/24/2019 05:33:00 PM EDT [facility] ([facility]) Name Value Range Interpretation Code Description Data Rema rce(s) Supporting Document(s) White Blood Count 9.9 10 4.0-10.0 Normal (applies to non-numeri c results) [facility] ([facility]) Red Blood Count 4.64 10 4.00-5.40 Normal (applies to non-numeric results) [facility] ([facility]) Hemoglobin 13.7 g/dL 12.0-15.5 Normal (applies to non-numeric resul ts) [facility] ([facility]) Hematocrit 40.5 % 36.0-47.0 Normal (applies to non-numeric resul ts) [facility] ([facility]) Mean Corpuscular Volume 87.3 fl 80.0-96.0 Normal ( applies to non-numeric results) [facility] ([facility]) Mean Corpuscular Hemoglobin 29.5 pg 27.0-33.0 Norm al (applies to non-numeric results) [facility] ([facility]) Mean Corpuscular HGB Conc 33.8 g/dL 32.0-36.5 Normal (applies to non-numeric results) [facility] ([facility]) Red Cell Distribution Width 13.9 % 11.5-14.5 Norm al (applies to non-numeric results) [facility] ([facility]) Platelet Count, Automated 223 10 150-450 Normal (applies to non-numeric results) [facility] ([facility]) Neutrophils % 78.7 % 36.0-66.0 Above high normal MED[facility] ([facility]) Eos % 2.9 % 0.0-3.0 Normal (applies to non-numeric resul ts) [facility] ([facility]) [place] % 2.9 % 0.0-5.0 Normal (applies to non-numeric resul ts) [facility] ([facility]) Lymph % 14.6 % 24.0-44.0 Below low normal [facility] ( [facility]) Nucleated Red Blood Cell % 0.0 % 0-0 Normal (applies to n on-numeric results) [facility] ([facility]) Baso % 0.4 % 0.0-1.0 Normal (applies to non-numeric resul ts) [facility] ([facility]) Immature Granulocyte % 0.5 % 0-3.0 Normal (applies to non-n umeric results) [facility] ([facility]) Neutrophils # 7.8 10 1.5-8.5 Normal (applies to non-numeric re sults) [facility] ([facility]) [place] # 0.3 10 0.0-0.8 Normal (applies to non-numeric resul ts) [facility] ([facility]) Lymph # 1.5 10 1.5-5.0 Normal (applies to non-numeric resul ts) [facility] ([facility]) Baso # 0.0 10 0.0-0.2 Normal (applies to non-numeric resul ts) [facility] ([facility]) Eos # 0.3 10 0.0-0.5 Normal (applies to non-numeric resul ts) [facility] ([facility]) ID Date Data Source [id number] 10/23/2019 02:05:00 AM EDT [facility] Name Value Range Interpretation Code Description Data Rema rce(s) Supporting Document(s) HCV RNA PATSY Qualitative Negative Negative [facility] Negative: HCV RNA Not Detected ID Date Data Source [id number] 10/23/2019 02:05:00 AM EDT [facility] Name Value Range Interpretation Code Description Data Rema rce(s) Supporting Document(s) Please note [facility] The date recorded on the requisition ind icates the sample(s) receivedwere greater than 72 hours old upon arrival in our laboratory. ID Date Data Source [id number] 09/09/2019 07:43:00 PM EDT [facility] ([facility]) Name Value Range Interpretation Code Description Data Rema rce(s) Supporting Document(s) Laboratory test finding (navigational concept) 40.0 % 3 8.0-51.0 Normal (applies to non-numeric results) [facility]) Laboratory test finding (navigational concept) 139 meq/L 1 36-145 Normal (applies to non-numeric results) [facility] ([facility]) Laboratory test finding (navigational concept) 106 mg/dL 7 0-105 Above high normal [facility] ([facility]) Laboratory test finding (navigational concept) 3.7 meq/L 3 .5-5.1 Normal (applies to non-numeric results) [facility] ([facility]) Laboratory test finding (navigational concept) 5.1 mg/dL 4 .5-5.3 Normal (applies to non-numeric results) [facility] ([facility]) Laboratory test finding (navigational concept) 102 meq/L 9 8-109 Normal (applies to non-numeric results) [facility] ([facility]) Laboratory test finding (navigational concept) 15 mg/dL 8 -26 Normal (applies to non-numeric results) [facility] ([facility]) Laboratory test finding (navigational concept) 24.0 MM/L 2 3.0-27.0 Normal (applies to non-numeric results) [facility] ([facility]) Laboratory test finding (navigational concept) 0.9 mg/dL 0 .6-1.3 Normal (applies to non-numeric results) [facility] ([facility]) ID Date Data Source [id number] 09/09/2019 07:27:00 PM EDT [facility] ([facility]) Name Value Range Interpretation Code Description Data Rema rce(s) Supporting Document(s) Erythrocyte sedimentation rate by Westergren method 49 mm/hr 0-20 Above high normal [facility] ([facility]) ID Date Data Source [id number] 09/09/2019 07:27:00 PM EDT [facility] ([facility]) Name Value Range Interpretation Code Description Data Rema rce(s) Supporting Document(s) Red Blood Count 4.31 10 4.00-5.40 Normal (applies to non-numeric results) [facility] ([facility]) White Blood Count 9.6 10 4.0-10.0 Normal (applies to non-numeri c results) [facility] ([facility]) Hematocrit 38.4 % 36.0-47.0 Normal (applies to non-numeric resul ts) [facility] ([facility]) Hemoglobin 12.9 g/dL 12.0-15.5 Normal (applies to non-numeric resul ts) [facility] ([facility]) Mean Corpuscular Volume 89.1 fl 80.0-96.0 Normal ( applies to non-numeric results) [facility] ([facility]) Mean Corpuscular Hemoglobin 29.9 pg 27.0-33.0 Norm al (applies to non-numeric results) [facility] ([facility]) Mean Corpuscular HGB Conc 33.6 g/dL 32.0-36.5 Normal (applies to non-numeric results) [facility] ([facility]) Red Cell Distribution Width 14.0 % 11.5-14.5 Norm al (applies to non-numeric results) [facility] ([facility]) Platelet Count, Automated 223 10 150-450 Normal (applies to non-numeric results) [facility] ([facility]) Neutrophils % 59.2 % 36.0-66.0 Normal (applies to non-numeric re sults) [facility] ([facility]) Lymph % 26.3 % 24.0-44.0 Normal (applies to non-numeric resul ts) [facility] ([facility]) [place] % 7.4 % 0.0-5.0 Above high normal [facility] ([facility]) Eos % 5.9 % 0.0-3.0 Above high normal [facility] ([facility]) Immature Granulocyte % 0.4 % 0-3.0 Normal (applies to non-n umeric results) [facility] ([facility]) Baso % 0.8 % 0.0-1.0 Normal (applies to non-numeric resul ts) [facility] ([facility]) Nucleated Red Blood Cell % 0.0 % 0-0 Normal (applies to n on-numeric results) [facility] ([facility]) Neutrophils # 5.7 10 1.5-8.5 Normal (applies to non-numeric re sults) [facility] ([facility]) Lymph # 2.5 10 1.5-5.0 Normal (applies to non-numeric resul ts) [facility] ([facility]) [place] # 0.7 10 0.0-0.8 Normal (applies to non-numeric resul ts) [facility] ([facility]) Baso # 0.1 10 0.0-0.2 Normal (applies to non-numeric resul ts) [facility] ([facility]) Eos # 0.6 10 0.0-0.5 Above high normal [facility] ([facility]) ID Date Data Source [id number] 09/09/2019 07:27:00 PM EDT [facility] ([facility]) Name Value Range Interpretation Code Description Data Rema rce(s) Supporting Document(s) C reactive protein [Mass/volume] in Serum or Plasma by High sensitivity method 0.90 mg/dL 0.00-0.30 Above high normal [facility] ([facility]) <content>note:<nlbl:demographic_changed> </content>
<content></content> ID Date Data Source [id number] 08/30/2019 08:09:00 PM EDT [facility] ([facility]) Name Value Range Interpretation Code Description Data Rema rce(s) Supporting Document(s) Choriogonadotropin.beta subunit [Moles/volume] in Serum or Plasm a 141 MIU/ML Normal (applies to non-numeric results) [facility] ([facility]) GESTATIONAL AGE APPROXIMATE HCG RANGE (MIU/ML) - 0.2-1 WEEK 5-50 1-2 WEEKS 50-500 2-3 WEEKS 100-5,000 3-4 WEEKS 500-10,000 4-5 WEEKS 1,000-50,000 5-6 WEEKS 10,000-100,000 6-8 WEEKS 15,000-200,000 2-3 MONTHS 10,000-100,00 0 NON FEMALES LESS THAN 3.0 Patient samples may contain human heterophilic antibodies that could react with immunoassays to give falsely elevated or depressed results. This assay has been designed to minimize interference from heterophilic antibodies. Elevated hCG levels have also been associated with trophoblastic disease and nontrophoblastic neoplasms. The possibility of having these diseases should be considered before a diagnosis of is made. This test is not intended for use as a surrogate marker for aiding in the diagnosis or monitoring the treatment of cancer patients. [employer] Moya Okruga methodology. ID Date Data Source [id number] 08/30/2019 07:23:00 PM [facility] ([facility]) Name Value Range Interpretation Code Description Data Rema rce(s) Supporting Document(s) Laboratory test finding (navigational concept) 167.2 Normal (applies to non- numeric results) [facility]) <content>QUANTITATIVE RESULT QU ALITATIVE INTERPRETATION</content>
<content> </content>
<content><5.0 IU/L NEGATIVE</content>
<content>5.0 - 25.0 IU/L INDETERMINATE</content>
<content>>25.0 IU/L POSITIVE</content>
<content></content> ID Date Data Source [id number] 08/30/2019 07:02:00 PM EDT [facility] ([facility]) Name Value Range Interpretation Code Description Data Rema rce(s) Supporting Document(s) Hemoglobin 13.5 g/dL 12.0-15.5 Normal (applies to non-numeric resul ts) [facility] ([facility]) Red Blood Count 4.58 10 4.00-5.40 Normal (applies to non-numeric results) [facility] ([facility]) White Blood Count 8.7 10 4.0-10.0 Normal (applies to non-numeri c results) [facility] ([facility]) Hematocrit 40.1 % 36.0-47.0 Normal (applies to non-numeric resul ts) [facility] ([facility]) Mean Corpuscular Volume 87.6 fl 80.0-96.0 Normal ( applies to non-numeric results) [facility] ([facility]) Mean Corpuscular Hemoglobin 29.5 pg 27.0-33.0 Norm al (applies to non-numeric results) [facility] ([facility]) Mean Corpuscular HGB Conc 33.7 g/dL 32.0-36.5 Normal (applies to non-numeric results) [facility] ([facility]) Red Cell Distribution Width 13.9 % 11.5-14.5 Norm al (applies to non-numeric results) [facility] ([facility]) Platelet Count, Automated 243 10 150-450 Normal (applies to non-numeric results) [facility] ([facility]) Neutrophils % 59.3 % 36.0-66.0 Normal (applies to non-numeric re sults) [facility] ([facility]) [place] % 6.9 % 0.0-5.0 Above high normal [facility] ([facility]) Lymph % 27.4 % 24.0-44.0 Normal (applies to non-numeric resul ts) [facility] ([facility]) Baso % 0.7 % 0.0-1.0 Normal (applies to non-numeric resul ts) [facility] ([facility]) Eos % 5.4 % 0.0-3.0 Above high normal [facility] ([facility]) Nucleated Red Blood Cell % 0.0 % 0-0 Normal (applies to n on-numeric results) [facility] ([facility]) Immature Granulocyte % 0.3 % 0-3.0 Normal (applies to non-n umeric results) [facility] ([facility]) Lymph # 2.4 10 1.5-5.0 Normal (applies to non-numeric resul ts) [facility] ([facility]) Neutrophils # 5.2 10 1.5-8.5 Normal (applies to non-numeric re sults) [facility] ([facility]) Eos # 0.5 10 0.0-0.5 Normal (applies to non-numeric resul ts) [facility] ([facility]) [place] # 0.6 10 0.0-0.8 Normal (applies to non-numeric resul ts) [facility] ([facility]) Baso # 0.1 10 0.0-0.2 Normal (applies to non-numeric resul ts) [facility] ([facility]) ID Date Data Source [id number] 07/21/2019 01:37:00 PM EDT [facility] ([facility]) Name Value Range Interpretation Code Description Data Rema rce(s) Supporting Document(s) Gamma glutamyl transferase [Enzymatic activity/volume] in Serum or Plasma 19 U/L 8-78 [facility] ([facility]) Is patient fasting? N ID Date Data Source [id number] 07/21/2019 01:37:00 PM EDT [facility] ([facility]) Name Value Range Interpretation Code Description Data Rema rce(s) Supporting Document(s) Sodium 138 meq/L 134-153 [facility] ([facility]) Is patient fasting? N Comprehensive [employer] Laboratory test result [facility] ([facility]) Is patient fasting? N Potassium 4.5 meq/L 3.6-5.0 [facility]) Is patient fasting? N Co2 22 meq/L 22-30 [facility] ([facility]) Is patient fasting? N Chloride 102 meq/L 98-107 [facility]) Is patient fasting? N BUN 20 mg/dL 7-21 [facility] ([facility]) Is patient fasting? N Glucose 100 mg/dL 65-110 [facility] ([facility]) Is patient fasting? N Creatinine 0.8 mg/dL 0.7-1.5 [facility] ([facility]) Is patient fasting? N BUN/Creat 25 8-27 [facility] ([facility]) Is patient fasting? N Albumin 3.8 g/dL 3.9-5.0 Below low normal [facility] ( [facility]) Is patient fasting? N Total Protein 6.8 g/dL 6.3-8.2 [facility] ([facility]) Is patient fasting? N Globulin 3.0 GM/DL 2.4-3.2 [facility] ([facility]) Is patient fasting? N Total Bili Laboratory test result 0.2-1.3 [facility] ([facility]) Is patient fasting? N A/G Ratio 1.3 0.8-2.0 [facility] ([facility]) Is patient fasting? N Calcium 9.2 mg/dL 8.4-10.2 [facility] ([facility]) Is patient fasting? N Sgot/Ast 18 U/L 5-40 [facility] ([facility]) Is patient fasting? N SGPT/Alt 19 U/L 7-56 [facility] ([facility]) Is patient fasting? N Alkaline Phos 82 U/L 38-126 [facility] ([facility]) Is patient fasting? N Age 38 yrs [facility] ([facility]) Is patient fasting? N Anion Gap 14.0 mmol/L 8.0-16.0 [facility] ([facility]) Is patient fasting? N Afr Amer GFR Laboratory test result [facility] ([facility]) Is patient fasting? N Non-Aa GFR Laboratory test result [facility] ([facility]) Is patient fasting? N ID Date Data Source [id number] 07/21/2019 03:41:00 PM EDT [facility] Name Value Range Interpretation Code Description Data Rema rce(s) Supporting Document(s) Gamma glutamyl transferase [Enzymatic activity/volume] in Serum or Plasma 19 U/L 8 - 78 [facility] ID Date Data Source [id number] 07/21/2019 03:41:00 PM EDT [facility] Name Value Range Interpretation Code Description Data Rema rce(s) Supporting Document(s) COMPREHENSIVE METABOLIC PANEL [facility] COMPREHENSIVE METABOLIC PANEL Sodium [Moles/volume] in Serum or Plasma 138 mEq/L 134 - 153 [facility] Potassium [Moles/volume] in Serum or Plasma 4.5 mEq/L 3.6 - 5.0 [facility] Chloride [Moles/volume] in Serum or Plasma 102 mEq/L 98 - 107 [facility] Carbon dioxide, total [Moles/volume] in Serum or Plasma 22 MEQ/L 22 - 30 [facility] Glucose [Mass/volume] in Serum or Plasma 100 MG/DL 65 - 110 [facility] BUN 20 MG/DL 7 - [facility] Creatinine [Mass/volume] in Serum or Plasma 0.8 MG/DL 0.7 - 1.5 [facility] BUN/CREAT 25 8 - 27 [facility] al Protein [Mass/volume] in Serum or Plasma 6.8 G/DL 6.3 - 8.2 [facility] Albumin [Mass/volume] in Serum or Plasma 3.8 G/DL 3.9 - 5.0 L [facility] Globulin [Mass/volume] in Serum by calculation 3.0 GM/DL 2.4 - 3.2 [facility] A/G RATIO 1.3 0.8 - 2.0 [facility] Calcium [Mass/volume] in Serum or Plasma 9.2 MG/DL 8.4 - 10.2 [facility] Bilirubin.total [Mass/volume] in Serum or Plasma <0.7 MG/DL 0.2 - 1.3 [facility] Alkaline phosphatase [Enzymatic activity/volume] in Serum or Plasma 82 U/L 38 - 126 [facility] Aspartate aminotransferase [Enzymatic activity/volume] in Serum or Plasma 18 U/L 5 - 40 [facility] Alanine aminotransferase [Enzymatic activity/volume] in Seru m or Plasma 19 U/L 7 - 56 [facility] Anion gap 3 in Serum or Plasma 14.0 mmol/L 8.0 - 16.0 [facility] AGE 38 yrs [facility] al NON-AA GFR >60 mL/min [facility] ital AFR AMER GFR >60 mL/min [facility] Ho spital Male GFR In terprentation 20-49 yrs >60 mL/min Normal 50-59 yrs >56 mL/min Normal 60-69 yrs >49 mL/min Normal 70-79yrs >42 mL/min Normal 80 and above >35 mL/min Normal Female GFR Interpretation 20-39 yrs >60 mL/min Normal 40-49 yrs >58 mL/min Normal 50-59 yrs >51 mL/min Normal 60-69 yrs >45 mL/min Normal 70-79 yrs >39 mL/min Normal 80 and above >32 mL/min Normal ID Date Data Source [id number] 06/24/2019 11:32:00 AM EDT [facility] Name Value Range Interpretation Code Description Data Rema rce(s) Supporting Document(s) Red Blood Count 4.81 10 4.00-5.40 Normal (applies to non-numeric results) [facility] ([facility]) White Blood Count 7.4 10 4.0-10.0 Normal (applies to non-numeri c results) [facility] ([facility]) Hemoglobin 13.9 g/dL 12.0-15.5 Normal (applies to non-numeric resul ts) [facility] Hematocrit 42.0 % 36.0-47.0 Normal (applies to non-numeric resul ts) [facility]) Mean Corpuscular Volume 87.3 fl 80.0-96.0 Normal ( applies to non-numeric results) [facility] ([facility]) Red Cell Distribution Width 13.9 % 11.5-14.5 Norm al (applies to non-numeric results) [facility] ([facility]) Platelet Count, Automated 212 10 150-450 Normal (applies to non-numeric results) [facility]) Mean Corpuscular Hemoglobin 28.9 pg 27.0-33.0 Norm al (applies to non-numeric results) [facility]) Mean Corpuscular HGB Conc 33.1 g/dL 32.0-36.5 Normal (applies to non-numeric results) [facility] ([facility]) Nucleated Red Blood Cell % 0.0 % 0-0 Normal (applies to n on-numeric results) [facility] ([facility]) ID Date Data Source [id number] 06/24/2019 11:32:00 AM EDT [facility] ([facility]) Name Value Range Interpretation Code Description Data Rema rce(s) Supporting Document(s) Neutrophils % 54.0 % 36.0-66.0 Normal (applies to non-numeric re sults) [facility] ([facility]) Lymph % 30.9 % 24.0-44.0 Normal (applies to non-numeric resul ts) [facility] ([facility]) Eos % 5.8 % 0.0-3.0 Above high normal [facility] ([facility]) [place] % 7.9 % 0.0-5.0 Above high normal [facility] ([facility]) Neutrophils # 4.0 10 1.5-8.5 Normal (applies to non-numeric re sults) [facility] ([facility]) Baso % 1.1 % 0.0-1.0 Above high normal [facility] ([facility]) Immature Granulocyte % 0.3 % 0-3.0 Normal (applies to non-n umeric results) [facility] ([facility]) Lymph # 2.3 10 1.5-5.0 Normal (applies to non-numeric resul ts) [facility] ([facility]) Eos # 0.4 10 0.0-0.5 Normal (applies to non-numeric resul ts) [facility] ([facility]) [place] # 0.6 10 0.0-0.8 Normal (applies to non-numeric resul ts) [facility] ([facility]) Baso # 0.1 10 0.0-0.2 Normal (applies to non-numeric resul ts) [facility] ([facility]) ID Date Data Source [id number] 06/24/2019 11:32:00 AM EDT [facility] ([facility]) Name Value Range Interpretation Code Description Data Rema rce(s) Supporting Document(s) Blood Urea Nitrogen 19 mg/dL 7-18 Above high normal [facility] ([facility]) Glucose, Fasting 86 mg/dL 70-100 Normal (applies to non-numeric results) [facility] ([facility]) Sodium Level 137 meq/L 136-145 Normal (applies to non-numeric res ults) [facility] ([facility]) Glomerular Filtration Rate Laboratory test result Normal (applies to non- numeric results) [facility]) <content>Units are mL/min/1.73 m2</content>
<content></content>
<content>Chronic Kidney Disease Staging per NKF:</content>
<content></content>
<content>Stage I & II GFR >=60 Normal to Mildly Decreased</content>
<content>Stage III GFR 30-59 Moderately Decreased</content>
<content>Stage IV GFR 15-29 Severely Decreased</content>
<content>Stage V GFR <15 Very Little GFR Left</content>
<content>ESRD GFR <15 on [employer]</content>
<content></content> Creatinine For GFR 0.86 mg/dL 0.55-1.30 Normal (applies to non -numeric results) [facility] ([facility]) Carbon Dioxide Level 21 meq/L 21-32 Normal (applies to non-num prashanth results) [facility] ([facility]) Chloride Level 109 meq/L 98-107 Above high normal [facility] ([facility]) Potassium Serum 4.8 meq/L 3.5-5.1 Normal (applies to non-numeric results) [facility] ([facility]) Ast/Sgot 47 U/L 7-37 Above high normal [facility] ([facility]) Calcium Level 8.8 mg/dL 8.5-10.1 Normal (applies to non-numeric re sults) [facility] ([facility]) Anion Gap 7 meq/L 8-16 Below low [facility] Alt/SGPT 111 U/L 12-78 Above high normal [facility] ([facility]) Total Protein 7.3 GM/DL 6.4-8.2 Normal (applies to non-numeric re sults) [facility] ([facility]) Alkaline Phosphatase 88 U/L 45-117 Normal (applies to non-num prashanth results) [facility] ([facility]) Bilirubin,Total 0.3 mg/dL 0.2-1.0 Normal (applies to non-numeric results) [facility] ([facility]) Albumin 3.4 GM/DL 3.2-5.2 Normal (applies to non-numeric resul ts) [facility] ([facility]) Albumin/Globulin Ratio 0.87 1.00-1.93 Below low normal [facility] ([facility]) ID Date Data Source [id number] 06/24/2019 11:32:00 AM EDT [facility] ([facility]) Name Value Range Interpretation Code Description Data Rema rce(s) Supporting Document(s) Triglycerides Level 202 mg/dL Above high normal [facility] ([facility]) Cholesterol Level 176 mg/dL Normal (applies to non-numeri c results) [facility] ([facility]) HDL Cholesterol 42 mg/dL Normal (applies to non-numeric results) [facility] ([facility]) Non-HDL-C 134 mg/dL Normal (applies to non-numeric resul ts) [facility] ([facility]) LDL Cholesterol 94 mg/dL Normal (applies to non-numeric results) [facility] ([facility]) Cholesterol Risk Ratio 4.190 Normal (applies to non-n umeric results) [facility]) ID Date Data Source [id number] 06/24/2019 11:32:00 AM EDT [facility] ([facility]) Name Value Range Interpretation Code Description Data Rema rce(s) Supporting Document(s) Natriuretic peptide.B prohormone N-Terminal [Mass/volu me] in Serum or Plasma 24 pg/mL Normal (applies to non-numeric results) [facility] ([facility]) <content>note:<nlbl:demographic_changed> </content>
<content></content> Thyrotropin [Units/volume] in Serum or Plasma 1.820 uIU/ML 0. 358-3.740 Normal (applies to non-numeric results) [facility] ([facility]) <content>note:<nlbl:demographic_changed> </content>
<content></content> Calcidiol [Mass/volume] in Serum or Plasma 24.9 ng/mL 30.0- 100.0 Below low normal [facility] ([facility]) <content>note:<nlbl:demographic_changed> </content>
<content></content> ID Date Data Source [id number] 06/24/2019 11:24:00 AM EDT [facility] ([facility]) Name Value Range Interpretation Code Description Data Rema rce(s) Supporting Document(s) Appearance, Urine Laboratory test result Normal (applies to non-numeric results) [facility] ([facility]) Color, Urine Laboratory test result Normal (applies to non -numeric results) [facility] ([facility]) PH,Urine 5.0 units 5.0-9.0 Normal (applies to non-numeric resul ts) [facility] ([facility]) Specific [place] Urine Auto 1.021 1.002-1.035 Norm al (applies to non-numeric results) [facility] ([facility]) Glucose, Urine (Ua) Auto Laboratory test result Normal (applies to non-numeric results) [facility] ([facility]) Protein, Urine Auto Laboratory test result [place] (applies to non-numeric results) [facility] ([facility]) Ketone, Urine Auto Laboratory test result Normal (applies to non-numeric results) [facility] ([facility]) Bilirubin, Urine Auto Laboratory test result Nor mal (applies to non-numeric results) [facility] ([facility]) Urobilinogen, Urine Auto 0.2 mg/dL 0.0-2.0 Normal (applies to non-numeric results) [facility] ([facility]) Leukocyte Esterase, Urine Auto Laboratory test result Normal (applies to non- numeric results) [facility] ([facility]) Nitrite, Urine Auto Laboratory test result [place] (applies to non-numeric results) [facility] ([facility]) Blood, Urine Blood Laboratory test result Above high [place] [facility] ([facility]) WBC, Urine Auto 0 /HPF 0-3 Normal (applies to non-numeric results) [facility] ([facility]) Squamous Epithelial Cell Ur AU 6 /HPF 0-6 N ormal (applies to non-numeric results) [facility] ([facility]) Bacteria, Urine Auto Laboratory test result Norm al (applies to non-numeric results) [facility] ([facility]) RBC, Urine Auto 3 /HPF 0-3 Normal (applies to non-numeric results) [facility] ([facility]) Hyaline Cast, Urine Auto 0 /LPF 0-1 Normal (applies to non -numeric results) [facility] ([facility]) ID Date Data Source [id number] 06/24/2019 11:24:00 AM EDT [facility] ([facility]) Name Value Range Interpretation Code Description Data Rema rce(s) Supporting Document(s) Amphetamine Screen, Urine Laboratory test result Normal (applies to non- numeric results) [facility] ([facility]) Cannabinoid Screen, Urine Laboratory test result Normal (applies to non- numeric results) [facility] ([facility]) Benzodiazepines, Urine Screen Laboratory test result Normal (applies to non- numeric results) [facility] ([facility]) Barbiturates Screen, Urine Laboratory test result Normal (applies to non- numeric results) [facility] ([facility]) Opiate Screen, Urine Laboratory test result Norm al (applies to non-numeric results) [facility] ([facility]) Opiate test includes Codeine, Morphine, Hydromorphone, Hydrocodone. Oxycodone, Screen, Urine Laboratory test result Normal (applies to non-numeric results) [facility] ([facility]) Test includes Oxycodone and Oxymorphone Cocaine Screen, Urine Laboratory test result Nor mal (applies to non-numeric results) [facility] ([facility]) Propoxyphene Urine, Screen Laboratory test result Normal (applies to non- numeric results) [facility] ([facility]) PCP Screen, Urine Laboratory test result Normal (applies to non-numeric results) [facility] ([facility]) Meperidine, Urine Screen Laboratory test result Normal (applies to non-numeric results) [facility]) This test was developed and its performa nce characteristics determined by [employer]. It has not been cleared or approved by the Food and Drug Administration. Methadone, Urine Screen Laboratory test result N ormal (applies to non-numeric results) [facility]) Creatinine, Urine 124.7 mg/dL 20.0-300.0 Normal (applie s to non-numeric results) [facility] Tramadol Screen, Urine Laboratory test result No rmal (applies to non-numeric results) [facility]) Fentanyl Urine Screen Laboratory test result Nor mal (applies to non-numeric results) [facility] Test includes Fentanyl and Norfentanyl . This test was developed and its performance characteristics determined by [employer]. It has not been cleared or approved by the Food and Drug Administration. Specific [place], Urine 1.028 Normal (applies to non- numeric results) [facility] Please Note: Laboratory test result Normal (applies to non -numeric results) [facility]) . Drug-test results should be interpreted in the context of clinical information. Patient metabolic variables, specific drug chemistry, and specimen characteristics can affect test outcome. Technical consultation is available if a test result is inconsistent with an expected outcome. (email-[email or web address] or call toll-free [phone]) . Drug brands, if listed herein, are trademarks of their respective owners. Performed at: [facility] [address] [place] [id number] Watch Band Assembler: Pretty Swain MD, Phone: [phone] pH, Urine 5.0 4.5-8.9 Normal (applies to non-numeric resul ts) [facility] ([facility]) ID Date Data Source [id number] 03/25/2019 11:00:00 AM EST [facility] [address] [place] [address] PHONE: [phone] FAX: [phone] Name .................. : LORRAINE CHEN Dawson Acct Number.................. : [id number] ROOM. ................. : -1B MR Number ................... : [id number] Stay type ............. : E/R Discharge Date......... ... : 03/24/19 Admit Date ......... : 03/24/19 Admit Phys .................... : TABITHA SHAWNA Date of ....... : 1980 Family Phys ................... : CAMARGO HARD Phone .................. : [phone] Age ................................ : 38 Film# .................. .:[id number] Sex ................................. : F Unsigned transcriptions are preliminary reports and do not represent a medical or legal document CT LS W/O CONTRAST [id number] COMPLETE:03/24/19 16:57 AMBER [id number] Reason(s): 12/10 tailbone and lower lumbar pain s/p fall CT SCAN OF THE LUMBAR SPINE WITHOUT CONTRAST: TECHNIQUE: Axial CT scanning of the lumbar spine is obtained without the use of intravenous contrast. Computer reformatted sagittal and coronal images are generated. COMPARISON: None available. FINDINGS: There is no acute fracture or spondylolisthesis. There is only minimal degenerative change including minimal interspace narrowing at L5-S1. CT scanning is less sensitive than MRI for evaluation of disc pathology. Bulging discs, especially at L4-5 are not excluded and could be further evaluated with an MRI if clinically warranted. IMPRESSION: Mild degenerative changes without acute fracture. While performing the above CT examination, radiation dose reduction was accomplished utilizing automated exposure control, adjusting of the mA and kV based on the patient's body size and/or the use of imperative reconstructive techniques. CT dose: 1356.8 mGycm Electronically Reviewed and Signed By Juancho Campo MD , 03/25/19 11:00, [facility] Transcribe Initials: LOPEZ , Transcribe Date: 03/24/19 18:27, Dictation Date: Copy for: TABITHA Dawson via fax Copy for: EMERGENCY DEPT via [facility] Copy for: [address] [place] [address] REC [address] [place] [address] PHONE: [phone] FAX: [phone] Name .................. : LORRAINE CHEN Dawson Acct Number.................. : [id number] ROOM. ................. : TR-1B MR Number ................... : [id number] Stay type ............. : E/R Discharge Date......... ... : 03/24/19 Admit Date ......... : 03/24/19 Admit Phys .................... : TABITHA SHAWNA Date of ....... : 1980 Family Phys ................... : CAMARGO HARD Phone .................. : [phone] Age ................................ : 38 Film# .................. .:[id number] Sex ................................. : F Unsigned transcriptions are preliminary reports and do not represent a medical or legal document CT LS W/O CONTRAST [id number] COMPLETE:03/24/19 16:57 AMBER [id number] Reason(s): 12/10 tailbone and lower lumbar pain s/p fall DISCHARGED Page 2 of 2 Name Value Range Interpretation Code Description Data Rema rce(s) Supporting Document(s) ID Date Data Source [id number] 03/24/2019 04:07:00 PM EST [facility] 1 OrderSheet [facility] Emergency Department [address] [place] [address] Phone #: [phone] toq- [phone] 03/24/2019 16:05 Patient: CHEN PETERS Sex: F : 1980 Age: 38yWEIGHT:122.4 kg (S) HEIGHT:66 inches (S) BMI:43.6ALLERGIES: Amitriptyline, Atenolol, Fish, Geoden, Neurotin, Nortriptlline, ResperidialCHIEF COMPLAINT: back pain, back injuryDIAGNOSIS: ContusionLAB ORDERSOrder Description Priority Entered Acknowledged InitialedCMP STAT 16:16 03/24/2019 16:21 Manohar Stevens; Patti HortaCBC wo Diff STAT 16:16 03/24/2019 16:21 Manohar Stevens; Patti HortaUrinalysis (Clean STAT 16:16 03/24/2019 Ack'd: 16:21 Patti Stevens R.N.Catch) Manohar MCKEON; Initialed: 17:00 Patti Stevens R.N. Cancelled: Other 17:09 Manohar Lu PADIAGNOSTIC STUDY ORDERSOrder Description Priority Entered Acknowledged InitialedCT Spine Lumbar STAT 16:16 03/24/2019 16:21 Hilda,W/O Cont Manohar MCKEON; Patti Horta(Oxygen?(No)) Reason for Study: 12/10 tailbone and lower lumbar pain s/p fallMEDICATION/IV/DRIP/FLUID ORDERSOrder Description Priority Entered Acknowledged InitialedToradol IM 60 mg 16:16 03/24/2019 16:24 Hilda,(NOW x1) Manohar MCKEON; Patti HortaGENERAL ORDERSOrder Description Priority Entered Acknowledged InitialedObtain Old Records 16:17 03/24/2019 16:17 Juan Cruz;[Electronically signed by Patti Stevens R.N. (17:41 03/24/2019)][Electron ically signed by Manohar Lu (18:48 03/24/2019)][Electronically locked by Patti Stevens R.N. (17:41 03/24/2019)] Name Value Range Interpretation Code Description Data Rema rce(s) Supporting Document(s) ID Date Data Source [id number] 03/24/2019 04:07:00 PM EST [facility] 1 Medication Reconciliation Report [facility] Emergency Department [address] [place] [address] Phone #: ext- [phone] 03/24/2019 16:05 Patient: CHEN PETERS [facility]#: [id number] Sex: F : 1980 Age: 38yWeight: 122.4 kgHeight/Length: 66 in.BMI: 43.6ALLERGIES: Amitriptyline, Atenolol, Fish, Geoden, Neurotin, Nortriptlline, ResperidialThe patient's Home Medications are listed below:CONTINUE TAKING THE FOLLOWING MEDICATIONS: Ducosate sodium Lyrica Oral Methocarbamol Oral Omeprazole Oral Prazosin HCl Oral Vitamins Oral PROzac Oral 20 mg, daily Vitamin D OralThe source(s) of the original Home Medication information:Not obtained.The following Medications were given to the patient in the Emergency Department:Toradol [IM] IM 60 mg, administered: 03/24/2019 4:24:00 PMThe following Medications were prescribed to the patient:None. Name Value Range Interpretation Code Description Data Rema rce(s) Supporting Document(s) ID Date Data Source [id number] 03/24/2019 04:07:00 PM EST [facility] 1 Medication Administration Record [facility] Emergency Department [address] [place] [address] Phone #: ext- [phone] 03/24/2019 16:05 [id number] Sex: F : 1980 Age: 38yWeight: 122.4 kgHeight/Length: 66 inBMI: 43.6ALLERGIES: Amitriptyline, Atenolol, Fish, Geoden, Neurotin, Nortriptlline, Resperidial Date/Time Medication Administered Medication OrderedGiven TORADOL [IM] (KETOROLAC Toradol IM 60 mg (NOW x1)16:24 03/24/2019 TROMETHAMINE)Patti Stevens R.N. Dose: 60 mg IM Name Value Range Interpretation Code Description Data Rema rce(s) Supporting Document(s) ID Date Data Source [id number] 03/24/2019 04:07:00 PM EST [facility] 1 General Instructions [facility] Emergency Department [address] [place] [address] Phone #: ext- [phone] 03/24/2019 16:05 Patient: CHEN PETERS Sex: F : 1980 Age: 38ySingle contusion. (tailbone contusion).INSTRUCTIONSApply ice for 15 minutes three times a day for three days followed by dry and moist heat 15 minutes threetimes a day for three days as needed. Don't apply ice directly to skin, don't use while asleep and don't useh igh setting on heating pad. No lifting greater than 5 lbs, no bending or stooping or no prolonged sittinguntil well. No strenuous activity for until better.(continue tylenol/ibuprofen for pain).Warnings: GENERAL WARNINGS: Return or contact your physician immediately if your conditionworsens or changes unexpectedly, if not improving as expected, or if other problems arise.SPECIFICALLY, return if you develop weakness of the foot or leg, numbness, tingling, pain or incontinenceof feces (loss of bowel control) or urine (loss of bladder control).Your Current Medications: Your current home medications have been reviewed.CONTINUE TAKING THE FOLLOWING MEDICATIONS:Ducosate sodium*.Lyrica Oral.Methocarbamol Oral.Omeprazole Oral.Prazosin HCl Oral. Vitamins Oral.PROzac Oral : 20 mg daily.Vitamin D Oral.Follow-up:Follow up with your healthcare provider in three days even if well. Call for the next available appointment.Reason for referral: evaluation. Summary of care provided to patient via paper.Understanding of the discharge instructions verbalized by patient. Expected course of injury, dischargeinstructions, activity level, follow-up appointment and risks and benefits of treatment reviewed with patientand understanding verbalized. Agrees to plan of care. 2 General Instructions [facility] Emergency Department [address] [place] [address] Phone #: ext- [phone] 03/24/2019 16:05 Patient: CHEN PETERS Sex: F : 1980 Age: 38yNo lifting greater than 5 lbs, no bending or stooping or no prolonged sitting until well. No strenuous activityfor until better.(Electronically signed by MIKE Wallis 03/24/2019 18:48) Name Value Range Interpretation Code Description Data Rema rce(s) Supporting Document(s) ID Date Data Source [id number] 03/24/2019 04:07:00 PM EST [facility] 1 Clinical Report - Nurses [facility] Emergency Department [address] [place] [address] Phone #: ext- [phone] 03/24/2019 16:05 Patient: CHEN PETERS Sex: F : 1980 Age: 38yTRIAGEArrived by EMS. Historian: patient.Triage time: 16:06 03/24/2019. Acuity: LEVEL 4.Chief Complaint: BACK PAIN.Alert. No acute distress.( pt had original fall in january. pt coughed last night and pain got worse. pt has xrays of it but no CT.pt seen [facility] last night for pain, f/u with Dr Camargo today. pt sent for CT.).SEPSIS SCREEN: NEGATIVE. Negative (no infection suspected/documented). --16:13 03/24/19, R.N.16:06 03/24/19. BP: 107/82. MAP: 90. HR: 77. RR: 20. O2 saturation: 100%. Temp: 98.3 F. Pain levelnow: 12/10. --16:13 03/24/19, June, R.N.Weight: 122.4 kg stated. Height/Length: 66 inches Per Patient. BMI: 43.6. --16:05 03/24/19, June,R.N.MedicationsPROzac Oral 20 mg, daily. --16:08 03/24/19June, R.N. Prazosin HCl Oral. --16:08 03/24/19June, R.N. Ducosate sodium. --16:08 03/24/19June, R.N. Vitamins Oral. --16:08 03/24/19June, R.N. Omeprazole Oral. --16:09 03/24/19June, R.N. Lyrica Oral. --16:09 03/24/19June, R.N. Vitamin D Oral. --16:09 03/24/19June, R.N. Methocarbamol Oral. --16:09 03/24/19June, R.N.AllergiesAmitriptyline.Atenolol.Fish.Geoden.Neurotin.Nortriptlline.Resperidi al. --16:08 03/24/19June, R.N.PROBLEMS:Endometrosis.Dizziness. 2 Clinical Report - Nurses [facility] Emergency Department [address] [place] [address] Phone #: ext- [phone] 03/24/2019 16:05 Patient: HCEN PETERS Sex: F : 1980 Age: 38yHypertension.Asthma.Migraine Headache.Ovarian Cyst.Mental Illness. --16:10 03/24/19 Corin Thorne R.N.ADDITIONAL SURGERIES:Cholecystectomy.C- Section.Exploratorys ago.Foot surgery for plantar fasciitis.Shunt in head as a child/ removed. --16:10 03/24/19 Corin Thorne R.N.HistoryPAST MEDICAL HX: Last normal menstrual period- Feb 19.SOCIAL HX: Never smoker. Occasional alcohol use. History of drug use. 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 She was offered HIV testing but declined. She has not traveled outside the [place]In fectious disease exposure: No infectious disease exposure. Patient is not a known carrier of tuberculosis,hepatitis, HIV, MRSA or VRE. Patient is not a known carrier of CRE.SELF HARM ASSESSMENT: Self harm assessment was performed. The patient answered "no" to thequestion(s) "Have you recently felt down, depressed, or hopeless?", "Do you have thoughts of harming orkilling yourself?", "Do you have a plan for harming or killing yourself?", "Have you recently had thoughtsabout harming or killing others?", "Do you have any dangerous items in your possession?", "Have younoticed less interest or pleasure in doing things?", "Are you here because you tried to hurt yourself?" and"Have you ever tried to hurt yourself before today?".ABUSE ASSESSMENT: Abuse assessment. yes. The patient had positive responses to the question(s)"Do you feel safe in your home?". No report of abuse.NUTRITIONAL RISK ASSESSMENT: The nutritional risk assessment revealed no deficiencies.FUNCTIONAL ASSESSMENT: Functional assessment: no impairments noted.LEARNING NEEDS ASSESSMENT: The learning needs assessment revealed no barriers.FALL RISK ASSESSMENT: Fall risk assessment completed. No risk factors identified; uses cane.SKIN INTEGRITY ASSESSMENT: Skin integrity risk assessment completed. No skin integrity riskidentified. --16:13 03/24/19 Corin Thorne R.N.InterventionsTo treatment room. --16:13 03/24/19 Corin Thorne R.N. 3 Clinical Report - Nurses [facility] Emergency Department [address] [place] [address] Phone #: ext- [phone] 03/24/2019 16:05 Patient: CHEN PETERS Sex: F : 1980 Age: 38yNURSING PROGRESS NOTESReassurance given. Bed placed in lowest position. Brakes of bed on. Patient ready for evaluation- PAnotified. --16:13 03/24/19 Corin Thorne R.N. 16:24 03/24/2019 Toradol (Ketorolac Tromethamine) IM 60 mg given. Given in the left deltoid. Allergies verified and confirmed 5 rights. Information reviewed with patient including reason for taking this medication, signs of allergic reaction and precautions. Verbalizes understanding. --16:24 03/24/19 Patti Stevens R.N. Patient gowned. Patient transported to radiology by wheelchair with tech. --16:40 03/24/19 Patti Stevens R.N. Patient returned from radiology by wheelchair with tech. --16:56 03/24/19 Patti Stevens R.N. Patient ID band checked for patient name and birthdate: patient confirmed. Instructions provided to collect clean catch urine and patient verbalized understanding. Clean catch urine collected; sample sent to lab for urinalysis. Specimen labeled in the presence of the patient. --17:00 03/24/19 Patti Stevens R.N. 17:00 03/24/2019 Toradol IM Response: no adverse reaction pain is improving. Symptoms have improved the patient feels better. --17:40 03/24/19 Patti Stevens R.N. late entry - 17:25 03/24/19. The patient is calm and resting quietly. Overall patient status is improved- she states feels better. --17:40 03/24/19 Patti Stevens R.N. 17:40 03/24/19. Pain level now 10/10. -- 17:40 03/24/19 Patti Stevens R.N.DISPOSITION / DISCHARGE 17:33 03/24/19. BP: 126/68. HR: 70. RR: 17. O2 saturation: 100%. Temp: 97.1 F. Pain level now 10/10. --17:34 03/24/19 [facility] Tech, AARON Mcclelland Tech1 Departure time: 17:41 03/24/2019. Condition at departure: stable. No learning barriers present. Discharge instructions provided and reviewed with the patient. Reviewed warnings (please see paper copy). Patient verbalized understanding. Written instructions provided in [place]. ( Cami given to pt). The patient was discharged by the physician under water assistant. She was discharged home and unaccompanied at time of discharge. She left ambulatory and via private vehicle. Driving (CAB). --17:41 03/24/19 Patti Stevens R.N. 17:40 03/24/19. BP: 144/89. MAP: 107. HR: 74. RR: 18. O2 saturation: 100% on room air. Temp: 97 F (oral). Pain level now: 10/10. --17:41 03/24/19 Patti Stevens R.N.Locked/Released at 03/24/2019 17:41 by Patti Stevens R.N. 4 Clinical Report - Nurses [facility] Emergency Department [address] [place] [address] Phone #: ext- [phone] 03/24/2019 16:05 [id number] Sex: F : 1980 Age: 38y Name Value Range Interpretation Code Description Data Rema rce(s) Supporting Document(s) ID Date Data Source [id number] 03/24/2019 04:07:00 PM EST [facility] 1 Clinical Report - Physicians/Mid Levels [facility] Emergency Department [address] [place] [address] Phone #: ext- [phone] 03/24/2019 16:05 [id number] Sex: F : 1980 Age: 38y Time Seen: 16:09 03/24/2019. Arrived- By ambulance. Historian- patient. Disposition decision: 17:07 03/24/2019.HISTORY OF PRESENT ILLNESS Chief Complaint: BACK INJURY and BACK PAIN. It is described as being severe and in the area of the lower lumbar spine, sacrum and coccyx. The quality is noted to be sharp and aching. No radiation. Onset- Jan; Fell on Feb 18 and injured lower back and tailbone, seen at [facility] and x-rays neg per pt. Coughed yesterday and has had increase in tailbone pain 10/10 since, seen by PCM today and concern for fx not seen on x-ray. Referred to ED. Denies fever, abd pain, other constitutional symptoms. Modifying factors- worsened by sitting, standing or coughing. Not relieved by anything. No bladder dysfunction, bowel dysfunction, sensory loss or motor loss. Patient notes an injury. No injury to the head or neck or other injury. Similar symptoms previously. None. Recent medical care: The patient was seen recently at another facility in the emergency department and a clinic.REVIEW OF SYSTEMSLast normal menstrual period- end jan. No fever, chills, eye irritation, difficulty with urination or urinaryfrequency. No hematuria, skin rash, headache, depression or sore throat. No cough, difficulty breathing,chest pain, abdominal pain or nausea. No vomiting, diarrhea, black stools or bloody stools.PAST HISTORYSee nurses notes.SOCIAL HISTORYNever smoker. History of drug use. Is a recovering addict. No alcohol use. No recent travel.ADDITIONAL NOTESThe nursing notes have been reviewed with agreement regarding the chief complaint, HPI, ROS, PMH andpatient medications and allergies.PHYSICAL EXAMVital Signs: 03/24/2019 16:06 BP: 107/82. MAP: 90. HR: 77. RR: 20. O2 saturation: 100%. Temp: 98.3 F.Pain level now: 12/10. Have been reviewed as normal and appear to be correct. Blood pressure normal.Mean arterial pressure- normal. Heart rate normal. Respiratory rate normal. Temperature normal.Oxygen saturation normal.Appearance: Alert. Appears to be in pain. Patient in severe distress. Distress appears due to pain.HEENT: Normal external inspection.Eyes: Pupils equal, round and reactive to light. 2 Clinical Report - Physicians/Mid Levels [facility] Emergency Department [address] [place] [address] Phone #: ext- [phone] 03/24/2019 16:05 Patient: CHEN PETERS Sex: F : 1980 Age: 38y ENT: Ears normal. Pharynx normal. Neck: Normal inspection. Neck nontender. Painless ROM. CVS: Heart sounds normal. Pulses normal. Respiratory: No respiratory distress. Painless inspiration. Breath sounds normal. Abdomen: No visible injury. Soft and nontender. Bowel sounds normal. No organomegaly. No mass. Severely obese. Back: Normal inspection. Vertebral point tenderness ( coccyx). Severe soft tissue tenderness (coccyx region). Moderately limited ROM in the back- in the lumbar spine: decreased rotation to the right and left. Skin: Skin warm and dry. Normal skin color. No rash. Normal skin turgor. Extremities: Extremities exhibit normal ROM. Extremities nontender. Neuro: Oriented X 3. Mood/affect normal. No motor deficit. No sensory deficit. Reflexes normal.LABS, X-RAYS, AND EKGCT L-Spine: Note- degenerative changes. No acute fx. The study was independently viewed by me andinterpreted by the radiologist and contemporaneously by me. Interpretation time: 17:08 03/24/2019.Laboratory Tests: Laboratory tests have been ordered, with results reviewed and considered in themedical decision making process. CMP: (THEA: 03/24/2019 16:23) ( MsgRcvd 03/24/2019 16:59) Final results Test Result Flag Units (Reference) COMPREHENSIVE METABOLIC PANEL COMPREHENSIVE METABOLIC PANEL SODIUM 138 mEq/L (134 - 153) POTASSIUM 4.6 mEq/L (3.6 - 5.0) CHLORIDE 103 mEq/L (98 - 107) CO2 25 MEQ/L (22 - 30) GLUCOSE 102 MG/DL (65 - 110) BUN 18 MG/DL (7 - 21) CREATININE 0.8 MG/DL (0.7 - 1.5) BUN/CREAT 23 (8 - 27) TOTAL PROTEIN 7.1 G/DL (6.3 - 8.2) ALBUMIN 4.0 G/DL (3.9 - 5.0) GLOBULIN 3.1 GM/DL (2.4 - 3.2) A/G RATIO 1.3 (0.8 - 2.0) CALCIUM 9.4 MG/DL (8.4 - 10.2) TOTAL BILI 0.7 MG/DL (0.2 - 1.3) ALKALINE PHOS 91 U/L (38 - 126) SGOT/AST 13 U/L (5 - 40) SGPT/ALT 14 U/L (7 - 56) ANION GAP 10.0 mmol/L (8.0 - 16.0) AGE 38 yrs NON-AA GFR >60 mL/min AFR AMER GFR >60 mL/min Male GFR Interprentation 20-49 yrs >60 mL/min Normal 50-59 yrs >56 mL/min Normal 60-69 yrs >49 mL/min Normal 70-79yrs >42 mL/min Normal 80 and above >35 mL/min Normal Female GFR Interpretation 20-39 yrs >60 mL/min Normal 40-49 yrs >58 mL/min Normal 50-59 yrs >51 mL/min Normal 60-69 yrs >45 mL/min Normal 70-79 yrs >39 mL/min Normal 80 and above >32 mL/min Normal CBC wo Diff: (THEA: 03/24/2019 16:23) ( MsgRcvd 03/24/2019 16:34) Final results Test Result Flag Units (Reference) CBC NO DIFF COMPLETE BLOOD COUNT WBC 9.2 10/uL (4.2 - 11.0) RBC 4.65 10/uL (4.20 - 5.40) 3 Clinical Report - Physicians/Mid Levels [facility] Emergency Department [address] [place] [address] Phone #: ext- [phone] 03/24/2019 16:05 Patient: CHEN PETERS Sex: F : 1980 Age: 38y HEMOGLOBIN 13.1 g/dL (12.0 - 16.0) HEMATOCRIT 39.8 % (37.0 - 47.0) MCV 85.6 fL (81.0 - 101) MCH 28.2 pg (27.0 - 34.0) MCHC 32.9 g/dL (31.0 - 36.0) RDW 15.1 H % (11.5 - 14.5) PLATELETS 237 10/uL (150 - 450) MPV 10.6 H fL (7.4 - 10.4) CT Spine Lumbar W/O Cont: (THEA: 03/24/2019 16:16) ( MsgRcvd 03/24/2019 16:57) In Progress CT LS W/O CONTRAST Reason(s): 12/10 tailbone and lower lumbar pain s/p fall TRANSPORTATION: IV? O2? Oxygen?(No) Room: ED : Will sign waiver.PROGRESS AND PROCEDURESCourse of Care: 16:28 Mar [address] LS spine results. Disposition: Discharged home in good and improved condition. Discharge decision based on the following: patient's condition is improved; patient is ambulatory; patient is active; patient's pain is controlled; patient's exam is improved; minimally abnormal test results; improving condition on repeat evaluation; social support is adequate; transportation is available; follow-up is availabl e; clinical impression is consistent with outpatient treatment.CLINICAL IMPRESSION Single contusion. (tailbone contusion).INSTRUCTIONS Apply ice for 15 minutes three times a day for three days followed by dry and moist heat 15 minutes three times a day for three days as needed. Don't apply ice directly to skin, don't use while asleep and don't use high setting on heating pad. No lifting greater than 5 lbs, no bending or stooping or no prolonged sitting until well. No strenuous activity for until better. (continue tylenol/ibuprofen for pain). Warnings: GENERAL WARNINGS: Return or contact your physician immediately if your condition worsens or changes unexpectedly, if not improving as expected, or if other problems arise. SPECIFICALLY, return if you develop weakness of the foot or leg, numbness, tingling, pain or incontinence of feces (loss of bowel control) or urine (loss of bladder control). Your Current Medications: Your current home medications have been reviewed. CONTINUE TAKING THE FOLLOWING MEDICATIONS: Ducosate sodium*. 4 Clinical Report - Physicians/Mid Levels [facility] Emergency Department [address] [place] [address] Phone #: ext- [phone] 03/24/2019 16:05 Patient: CHEN PETERS Sex: F : 1980 Age: 38y Lyrica Oral. Methocarbamol Oral. Omeprazole Oral. Prazosin HCl Oral. Vitamins Oral. PROzac Oral : 20 mg daily. Vitamin D Oral. Follow-up: Follow up with your healthcare provider in three days even if well. Call for the next available appointment. Reason for referral: evaluation. Summary of care provided to patient via paper. Understanding of the discharge instructions verbalized by patient. Expected course of injury, discharge instructions, activity level, follow-up appointment and risks and benefits of treatment reviewed with patient and understanding verbalized. Agrees to plan of care.(Electronically signed by MIKE Wallis 03/24/2019 18:48) Name Value Range Interpretation Code Description Data Rema harmony(s) Supporting Document(s) ID Date Data Source [id number] 03/24/2019 04:23:00 PM EST [facility] ([facility]) Name Value Range Interpretation Code Description Data [facility](s) Supporting Document(s) Potassium 4.6 meq/L 3.6-5.0 [facility] ([facility]) Chloride 103 meq/L 98-107 [facility] ([facility]) Sodium 138 meq/L 134-153 [facility] ([facility]) Comprehensive Metabo Laboratory test result [facility] ([facility]) COMPREHENSIVE METABOLIC PANEL BUN 18 mg/dL 7-21 [facility] ([facility]) Glucose 102 mg/dL 65-110 [facility] ([facility]) Co2 25 meq/L 22-30 [facility] ([facility]) Total Protein 7.1 g/dL 6.3-8.2 [facility] ([facility]) BUN/Creat 23 8-27 [facility] ([facility]) Albumin 4.0 g/dL 3.9-5.0 [facility] ([facility]) Creatinine 0.8 mg/dL 0.7-1.5 [facility] ([facility]) A/G Ratio 1.3 0.8-2.0 [facility] ([facility]) Globulin 3.1 GM/DL 2.4-3.2 [facility] ([facility]) Calcium 9.4 mg/dL 8.4-10.2 [facility] ([facility]) Total Bili 0.7 mg/dL 0.2-1.3 [facility] ([facility]) Alkaline Phos 91 U/L 38-126 [facility] ([facility]) Sgot/Ast 13 U/L 5-40 [facility] ([facility]) SGPT/Alt 14 U/L 7-56 [facility] ([facility]) Anion Gap 10.0 mmol/L 8.0-16.0 [facility] ([facility]) Non-Aa GFR Laboratory test result [facility] ([facility]) Age 38 yrs [facility] ([facility]) Afr Amer GFR Laboratory test result [facility] ([facility]) Male GFR Interprentation 20-49 yrs >60 mL/min Normal 50-59 yrs >56 mL/min Normal 60-69 yrs >49 mL/min Normal 70-79yrs >42 mL/min Normal 80 and above >35 mL/min Normal Female GFR Interpretation 20-39 yrs >60 mL/min Normal 40-49 yrs >58 mL/min Normal 50-59 yrs >51 mL/min Normal 60-69 yrs >45 mL/min Normal 70-79 yrs >39 mL/min Normal 80 and above >32 mL/min Normal ID Date Data Source [id number] 03/24/2019 04:23:00 PM EST [facility] ([facility]) Name Value Range Interpretation Code Description Data Rema rce(s) Supporting Document(s) CBC No Diff Laboratory test result [facility] ([facility]) COMPLETE BLOOD COUNT WBC 9.2 10^3/uL 4.2-11.0 [facility] ([facility]) Hemoglobin 13.1 g/dL 12.0-16.0 [facility] ([facility]) Hematocrit 39.8 % 37.0-47.0 [facility] ([facility]) RBC 4.65 10^6/uL 4.20-5.40 [facility] ([facility]) MCH 28.2 pg 27.0-34.0 [facility] ([facility]) RDW 15.1 % 11.5-14.5 Above high normal [facility] ([facility]) MCV 85.6 fL 81.0-101 [facility] ([facility]) MCHC 32.9 g/dL 31.0-36.0 [facility] ([facility]) Platelets 237 10^3/uL 150-450 [facility] ([facility]) MPV 10.6 fL 7.4-10.4 Above high normal [facility] ([facility]) ID Date Data Source [id number] 03/24/2019 04:59:00 PM [facility] Name Value Range Interpretation Code Description Data Rema rce(s) Supporting Document(s) COMPREHENSIVE METABOLIC PANEL [facility] COMPREHENSIVE METABOLIC PANEL Sodium [Moles/volume] in Serum or Plasma 138 mEq/L 134 - 153 [facility] Potassium [Moles/volume] in Serum or Plasma 4.6 mEq/L 3.6 - 5.0 [facility] Chloride [Moles/volume] in Serum or Plasma 103 mEq/L 98 - 107 [facility] Carbon dioxide, total [Moles/volume] in Serum or Plasma 25 MEQ/L 22 - 30 [facility] Glucose [Mass/volume] in Serum or Plasma 102 MG/DL 65 - 110 [facility] BUN 18 MG/DL 7 - 21 [facility] al Creatinine [Mass/volume] in Serum or Plasma 0.8 MG/DL 0.7 - 1.5 [facility] BUN/CREAT 23 8 - 27 [facility] Protein [Mass/volume] in Serum or Plasma 7.1 G/DL 6.3 - 8.2 [facility] Albumin [Mass/volume] in Serum or Plasma 4.0 G/DL 3.9 - 5.0 [facility] Globulin [Mass/volume] in Serum by calculation 3.1 GM/DL 2.4 - 3.2 [facility] A/G RATIO 1.3 0.8 - 2.0 [facility] Calcium [Mass/volume] in Serum or Plasma 9.4 MG/DL 8.4 - 10.2 [facility] Bilirubin.total [Mass/volume] in Serum or Plasma 0.7 MG/DL 0.2 - 1.3 [facility] Alkaline phosphatase [Enzymatic activity/volume] in Serum or Plasma 91 U/L 38 - 126 [facility] Aspartate aminotransferase [Enzymatic activity/volume] in Serum or Plasma 13 U/L 5 - 40 [facility] Alanine aminotransferase [Enzymatic activity/volume] in Seru m or Plasma 14 U/L 7 - 56 [facility] Anion gap 3 in Serum or Plasma 10.0 mmol/L 8.0 - 16.0 [facility] 38 [facility] >60 mL/min [facility] ital AFR AMER GFR >60 mL/min [facility] Ho spital Male GFR In terprentation 20-49 yrs >60 mL/min Normal 50-59 yrs >56 mL/min Normal 60-69 yrs >49 mL/min Normal 70-79yrs >42 mL/min Normal 80 and above >35 mL/min Normal Female GFR Interpretation 20-39 yrs >60 mL/min Normal 40-49 yrs >58 mL/min Normal 50-59 yrs >51 mL/min Normal 60-69 yrs >45 mL/min Normal 70-79 yrs >39 mL/min Normal 80 and above >32 mL/min Normal ID Date Data Source [id number] 03/24/2019 04:34:00 PM EST [facility] Name Value Range Interpretation Code Description Data Rema rce(s) Supporting Document(s) CBC NO DIFF [facility] ital COMPLETE BLOOD COUNT Leukocytes [#/volume] in Blood by Automated count 9.2 10^3/uL 4.2 - 1 1.0 [facility] Erythrocytes [#/volume] in Blood by Automated count 4.65 10^6/uL 4. 20 - 5.40 [facility] Hemoglobin [Mass/volume] in Blood 13.1 g/dL 12.0 - 16.0 [facility] Hematocrit [Volume Fraction] of Blood by Automated count 39.8 % 3 7.0 - 47.0 [facility] Erythrocyte mean corpuscular volume [Entitic volume] by Auto mated count 85.6 fL 81.0 - 101 [facility] Erythrocyte mean corpuscular hemoglobin [Entitic mass] by Automated count 28.2 pg 27.0 - 34.0 [facility] Erythrocyte mean corpuscular hemoglobin concentration [Mass/volume] by Automated count 32.9 g/dL 31.0 - 36.0 [facility] Erythrocyte distribution width [Ratio] by Automated count 15.1 % 11.5 - 14.5 H [facility] Platelets [#/volume] in Blood by Automated count 237 10^3/uL 150 - 45 0 [facility] Platelet mean volume [Entitic volume] in Blood by Automated count 10.6 fL 7.4 - 10.4 H [facility] ID Date Data Source [id number] 03/20/2019 06:00:00 PM EST [facility] ([facility]) Name Value Range Interpretation Code Description Data Rema rce(s) Supporting Document(s) Respiratory Panel Laboratory test result [facility] ([facility]) This respiratory PCR panel detects Influ larry A H1, H3 and 2009 H1 viruses, Influenza B virus, Resp iratory syncytial virus, Human metapneumovirus, Parainfluenza virus 1, 2, 3 and 4, Adenovirus, Rhinovirus/Enterovirus, Coronavirus HKU1, NL63, OC43 and 229E, Bordetella pertussis, Mycoplasma pneumoniae and Chlamydia pneumoniae. NEGATIVE by MULTIPLEXED NUCLEIC ACID PCR ID Date Data Source [id number] 03/17/2019 10:32:00 AM EST [facility] ([facility]) Name Value Range Interpretation Code Description Data Rema rce(s) Supporting Document(s) Spine Cerv Comp-5 Or More View Laboratory test result [facility] ([facility]) Spine Thoracic Laboratory test result [facility] ([facility]) ID Date Data Source [id number] 02/17/2019 12:41:00 AM EST [facility] ([facility]) Name Value Range Interpretation Code Description Data Rema rce(s) Supporting Document(s) Laboratory test finding (navigational concept) 101 mg/dL 7 0-105 Normal (applies to non-numeric results) [facility]) Laboratory test finding (navigational concept) 39.0 % 3 8.0-51.0 Normal (applies to non-numeric results) [facility] ([facility]) Laboratory test finding (navigational concept) 4.9 mg/dL 4 .5-5.3 Normal (applies to non-numeric results) [facility] ([facility]) Laboratory test finding (navigational concept) 139 meq/L 1 36-145 Normal (applies to non-numeric results) [facility] ([facility]) Laboratory test finding (navigational concept) 3.9 meq/L 3 .5-5.1 Normal (applies to non-numeric results) [facility] ([facility]) Laboratory test finding (navigational concept) 26.0 MM/L 2 3.0-27.0 Normal (applies to non-numeric results) [facility] ([facility]) Laboratory test finding (navigational concept) 104 meq/L 9 8-109 Normal (applies to non-numeric results) [facility] ([facility]) Laboratory test finding (navigational concept) 15 mg/dL 8 -26 Normal (applies to non-numeric results) [facility] ([facility]) Laboratory test finding (navigational concept) 0.7 mg/dL 0 .6-1.3 Normal (applies to non-numeric results) [facility] ([facility]) ID Date Data Source [id number] 02/17/2019 12:37:00 AM EST [facility] ([facility]) Name Value Range Interpretation Code Description Data Rema rce(s) Supporting Document(s) Appearance, Urine RFX Laboratory test result Nor mal (applies to non-numeric results) [facility] ([facility]) Protein, Urine Auto RFX Laboratory test result N ormal (applies to non-numeric results) [facility] ([facility]) Specific [place] Ur Auto RFX 1.020 1.002-1.035 Nor mal (applies to non-numeric results) [facility] ([facility]) Color, Urine RFX Laboratory test result Normal ( applies to non-numeric results) [facility] ([facility]) PH,Urine RFX 6.0 units 5.0-9.0 Normal (applies to non-numeric res ults) [facility] ([facility]) Ketone, Urine Auto RFX Laboratory test result No rmal (applies to non-numeric results) [facility] ([facility]) Urobilinogen, Urine Auto RFX 0.2 mg/dL 0.0-2.0 Nor mal (applies to non-numeric results) [facility] ([facility]) Glucose, Urine (Ua) Auto RFX Laboratory test result Normal (applies to non- numeric results) [facility] ([facility]) Nitrite, Urine Auto RFX Laboratory test result N ormal (applies to non-numeric results) [facility] ([facility]) Bilirubin, Urine Auto RFX Laboratory test result Normal (applies to non- numeric results) [facility] ([facility]) WBC, Urine Auto RFX 0 /HPF 0-3 Normal (applies to non-nume zeny results) [facility] ([facility]) Blood, Urine Blood RFX Laboratory test result No rmal (applies to non-numeric results) [facility] ([facility]) Leukocyte Esterase Ur Auto RFX Laboratory test result Normal (applies to non- numeric results) [facility] ([facility]) RBC, Urine Auto RFX 2 /HPF 0-3 Normal (applies to non-nume zeny results) [facility] ([facility]) Bacteria, Urine Auto RFX Laboratory test result Normal (applies to non-numeric results) [facility] ([facility]) Squam Epithelial Cell Ur Aurfx 5 /HPF 0-6 N ormal (applies to non-numeric results) [facility] ([facility]) Hyaline Cast, Urine Auto RFX 0 /LPF 0-1 Normal (appl ies to non-numeric results) [facility] ([facility]) ID Date Data Source [id number] 02/17/2019 12:36:00 AM EST [facility] ([facility]) Name Value Range Interpretation Code Description Data Rema rce(s) Supporting Document(s) Lipase [Enzymatic activity/volume] in Serum or Plasma 102 U/L 73-393 Normal (applies to non-numeric results) [facility] ([facility]) <content>note:<nlbl:demographic_changed> </content>
<content></content> Choriogonadotropin.beta subunit ( test) [Pres ence] in Serum or Plasma Laboratory test result Normal (applies to non-numeric results) [facility] ([facility]) <content>note:<nlbl:demographic_changed> </content>
<content></content> ID Date Data Source [id number] 02/17/2019 12:36:00 AM EST [facility] ([facility]) Name Value Range Interpretation Code Description Data Rema rce(s) Supporting Document(s) Ast/Sgot 15 U/L 7-37 Normal (applies to non-numeric resul ts) [facility] ([facility]) Alt/SGPT 22 U/L 12-78 Normal (applies to non-numeric resul ts) [facility] ([facility]) Alkaline Phosphatase 89 U/L 45-117 Normal (applies to non-num prashanth results) [facility] ([facility]) Bilirubin,Direct Laboratory test result 0.0-0.2 Normal ( applies to non-numeric results) [facility] ([facility]) Bilirubin,Total 0.2 mg/dL 0.2-1.0 Normal (applies to non-numeric results) [facility] ([facility]) Total Protein 6.8 GM/DL 6.4-8.2 Normal (applies to non-numeric re sults) [facility] ([facility]) Albumin 3.2 GM/DL 3.2-5.2 Normal (applies to non-numeric resul ts) [facility] ([facility]) Albumin/Globulin Ratio 0.89 1.00-1.93 Below low normal [facility] ([facility]) ID Date Data Source [id number] 02/17/2019 12:36:00 AM EST [facility] ([facility]) Name Value Range Interpretation Code Description Data Rema rce(s) Supporting Document(s) White Blood Count 8.9 10 4.0-10.0 Normal (applies to non-numeri c results) [facility] ([facility]) Red Blood Count 4.67 10 4.00-5.40 Normal (applies to non-numeric results) [facility] ([facility]) Mean Corpuscular Volume 84.8 fl 80.0-96.0 Normal ( applies to non-numeric results) [facility] ([facility]) Hematocrit 39.6 % 36.0-47.0 Normal (applies to non-numeric resul ts) [facility] ([facility]) Hemoglobin 12.9 g/dL 12.0-15.5 Normal (applies to non-numeric resul ts) [facility] ([facility]) Mean Corpuscular Hemoglobin 27.6 pg 27.0-33.0 Norm al (applies to non-numeric results) [facility] ([facility]) Red Cell Distribution Width 14.6 % 11.5-14.5 Above high normal [facility] ([facility]) Mean Corpuscular HGB Conc 32.6 g/dL 32.0-36.5 Normal (applies to non-numeric results) [facility] ([facility]) Neutrophils % 53.7 % 36.0-66.0 Normal (applies to non-numeric re sults) [facility] ([facility]) Platelet Count, Automated 244 10 150-450 Normal (applies to non-numeric results) [facility] ([facility]) Lymph % 32.0 % 24.0-44.0 Normal (applies to non-numeric resul ts) [facility] ([facility]) [place] % 7.9 % 0.0-5.0 Above high normal [facility] ([facility]) Baso % 0.7 % 0.0-1.0 Normal (applies to non-numeric resul ts) [facility] ([facility]) Eos % 5.4 % 0.0-3.0 Above high normal [facility] ([facility]) Immature Granulocyte % 0.3 % 0-3.0 Normal (applies to non-n umeric results) [facility] ([facility]) Neutrophils # 4.8 10 1.5-8.5 Normal (applies to non-numeric re sults) [facility] ([facility]) Nucleated Red Blood Cell % 0.0 % 0-0 Normal (applies to n on-numeric results) [facility] ([facility]) Eos # 0.5 10 0.0-0.5 Normal (applies to non-numeric resul ts) [facility] ([facility]) [place] # 0.7 10 0.0-0.8 Normal (applies to non-numeric resul ts) [facility] ([facility]) Lymph # 2.9 10 1.5-5.0 Normal (applies to non-numeric resul ts) [facility] ([facility]) Baso # 0.1 10 0.0-0.2 Normal (applies to non-numeric resul ts) [facility] ([facility]) ID Date Data Source [id number] 02/16/2019 01:15:00 PM EST [facility] [id number] Name Value Range Interpretation Code Description Data Rema rce(s) Supporting Document(s) Bacteria identified in Urine by Culture [facility] ID Date Data Source [id number] 02/19/2019 08:00:00 AM [facility] Name Value Range Interpretation Code Description Data Rema rce(s) Supporting Document(s) Amylase.pancreatic [Enzymatic activity/volume] in Serum or Plasm a 12 U/L 14-55 L [facility] Result confirmed on concentration. Please note reference interval change ID Date Data Source [id number] 02/16/2019 09:46:00 PM [facility] Name Value Range Interpretation Code Description Data Rema rce(s) Supporting Document(s) [facility] URINE CULTURE [facility] _CULTURE URINE_ TEST [place] [address] CLIA# [id number] SEE SCANNED REPORT Result: ID Date Data Source [id number] 02/15/2019 01:55:00 PM EST [facility] ([facility]) Name Value Range Interpretation Code Description Data Rema rce(s) Supporting Document(s) Lipase [Enzymatic activity/volume] in Serum or Plasma 27 U/L 13-6 0 [facility] ([facility]) {SOURCE: Random Void~NURSE COLLECTED? N Is patient fasting? N ID Date Data Source [id number] 02/15/2019 04:04:00 PM [facility] Name Value Range Interpretation Code Description Data Rema rce(s) Supporting Document(s) COMPREHENSIVE METABOLIC PANEL [facility] COMPREHENSIVE METABOLIC PANEL Sodium [Moles/volume] in Serum or Plasma 139 mEq/L 134 - 153 [facility] Potassium [Moles/volume] in Serum or Plasma 4.3 mEq/L 3.6 - 5.0 [facility] Chloride [Moles/volume] in Serum or Plasma 101 mEq/L 98 - 107 [facility] Carbon dioxide, total [Moles/volume] in Serum or Plasma 26 MEQ/L 22 - 30 [facility] Glucose [Mass/volume] in Serum or Plasma 107 MG/DL 65 - 110 [facility] BUN 18 MG/DL 7 - 21 [facility] al Creatinine [Mass/volume] in Serum or Plasma 0.8 MG/DL 0.7 - 1.5 [facility] BUN/CREAT 23 8 - 27 [facility] Protein [Mass/volume] in Serum or Plasma 7.2 G/DL 6.3 - 8.2 [facility] Albumin [Mass/volume] in Serum or Plasma 4.0 G/DL 3.9 - 5.0 [facility] Globulin [Mass/volume] in Serum by calculation 3.2 GM/DL 2.4 - 3.2 [facility] A/G RATIO 1.3 0.8 - 2.0 [facility] Calcium [Mass/volume] in Serum or Plasma 9.5 MG/DL 8.4 - 10.2 [facility] Bilirubin.total [Mass/volume] in Serum or Plasma <0.7 MG/DL 0.2 - 1.3 [facility] Alkaline phosphatase [Enzymatic activity/volume] in Serum or Plasma 95 U/L 38 - 126 [facility] Aspartate aminotransferase [Enzymatic activity/volume] in Serum or Plasma 18 U/L 5 - 40 [facility] Alanine aminotransferase [Enzymatic activity/volume] in Seru m or Plasma 16 U/L 7 - 56 [facility] Anion gap 3 in Serum or Plasma 12.0 mmol/L 8.0 - 16.0 [facility] AGE 38 yrs [facility] al NON-AA GFR >60 mL/min [facility] ital AFR AMER GFR >60 mL/min [facility] Ho spital Male GFR In terprentation 20-49 yrs >60 mL/min Normal 50-59 yrs >56 mL/min Normal 60-69 yrs >49 mL/min Normal 70-79yrs >42 mL/min Normal 80 and above >35 mL/min Normal Female GFR Interpretation 20-39 yrs >60 mL/min Normal 40-49 yrs >58 mL/min Normal 50-59 yrs >51 mL/min Normal 60-69 yrs >45 mL/min Normal 70-79 yrs >39 mL/min Normal 80 and above >32 mL/min Normal ID Date Data Source [id number] 02/15/2019 04:04:00 PM [facility] Name Value Range Interpretation Code Description Data Rema rce(s) Supporting Document(s) Lipase [Enzymatic activity/volume] in Serum or Plasma 27 U/L 13 - 60 [facility] ID Date Data Source [id number] 02/15/2019 03:54:00 PM [facility] Name Value Range Interpretation Code Description Data Rema rce(s) Supporting Document(s) HCG URINE QUAL NEGATIVE NORMAL: NEGATIVE [facility] HCG URINE QL REENTER NEGATIVE NORMAL: NEGATIVE [facility] { KIT LOT # [id number] ){ KIT EXP DATE 05/25/20 ){ PROCEDURAL CONTROL VALID ) ID Date Data Source [id number] 02/15/2019 03:54:00 PM [facility] Name Value Range Interpretation Code Description Data Rema rce(s) Supporting Document(s) URINALYSIS [facility] mookie [facility] yellow NORMAL: Yellow [facility] CLARITY clear NORMAL: Clear [facility] sp[facility] Specific gravity of Urine by Test strip 1.020 1.001 - 1.030 [facility] pH 5 5 - 9 [facility] al Glucose [Mass/volume] in Urine by Test strip NORM NORMAL: Negat [facility] Bilirubin.total [Presence] in Urine by Test strip NEG NORMAL: Negative [facility] Ketones [Presence] in Urine by Test strip NEG NORMAL: Negative [facility] Protein [Mass/volume] in Urine by Test strip NEG NORMAL: Negat [facility] Nitrite [Presence] in Urine by Test strip NEG NORMAL: Negative [facility] BLOOD NEG NORMAL: Negative [facility] Leukocyte esterase [Presence] in Urine by Test strip NEG [place] L: Negative [facility] Urobilinogen [Mass/volume] in Urine by Test strip NOR less liz n 1.0 mg/dL [facility] MICROSCOPIC Not Indicate [facility] ospital ID Date Data Source [id number] 02/15/2019 03:52:00 PM EST [facility] Name Value Range Interpretation Code Description Data Rema rce(s) Supporting Document(s) CBC W/AUTOMATED DIFF [facility] COMPLETE BLOOD COUNT Leukocytes [#/volume] in Blood by Automated count 8.2 10^3/uL 4.2 - 1 1.0 [facility] Erythrocytes [#/volume] in Blood by Automated count 4.94 10^6/uL 4. 20 - 5.40 [facility] Hemoglobin [Mass/volume] in Blood 13.5 g/dL 12.0 - 16.0 [facility] Hematocrit [Volume Fraction] of Blood by Automated count 41.4 % 3 7.0 - 47.0 [facility] Erythrocyte mean corpuscular volume [Entitic volume] by Auto mated count 83.8 fL 81.0 - 101 [facility] Erythrocyte mean corpuscular hemoglobin [Entitic mass] by Automated count 27.3 pg 27.0 - 34.0 [facility] Erythrocyte mean corpuscular hemoglobin concentration [Mass/volume] by Automated count 32.6 g/dL 31.0 - 36.0 [facility] Erythrocyte distribution width [Ratio] by Automated count 14.6 % 11.5 - 14.5 H [facility] Platelets [#/volume] in Blood by Automated count 276 10^3/uL 150 - 45 0 [facility] Platelet mean volume [Entitic volume] in Blood by Automated count 11.4 fL 7.4 - 10.4 H [facility] Neutrophils/100 leukocytes in Blood by Automated count 59.3 % 37. 0 - 80.0 [facility] Lymphocytes/100 leukocytes in Blood by Manual count 26.6 % 25.0 - 40.0 [facility] Monocytes/100 leukocytes in Blood by Automated count 6.2 % 3.0 - 8.0 [facility] Eosinophils/100 leukocytes in Blood by Automated count 6.8 % 0.0 - 7.0 [facility] Basophils/100 leukocytes in Blood by Automated count 0.9 % 0.0 - 2.5 [facility] %IG 0.2 % 0.0 - 0.0 [facility] %NRBC 0.0 % 0.0 - 0.0 [facility] al Neutrophils [#/volume] in Blood by Automated count 4.87 10^3/uL 2.00 - 6.90 [facility] Lymphocytes [#/volume] in Blood by Automated count 2.18 10^3/uL 0.60 - 3.40 [facility] Monocytes [#/volume] in Blood by Automated count 0.51 10^3/uL 0.00 - 0.90 [facility] Eosinophils [#/volume] in Blood by Automated count 0.56 10^3/uL 0.00 - 0.70 [facility] Basophils [#/volume] in Blood by Automated count 0.07 10^3/uL 0.00 - 0.20 [facility] #IG 0.02 10^3/uL 0.00 - 0.10 [facility] #NRBC 0.00 10^3/uL 0.00 - 0.00 [facility] MANUAL DIFF NOT INDICATED [facility] RBC MORPH NOT INDICATED [facility] spital ID Date Data Source [id number] 02/15/2019 01:55:00 PM EST [facility] ([facility]) Name Value Range Interpretation Code Description Data Rema rce(s) Supporting Document(s) Bacteria identified in Urine by Culture Laboratory test result [facility] ([facility]) R10.9 ID Date Data Source [id number] 02/15/2019 01:55:00 PM EST [facility] ([facility]) Name Value Range Interpretation Code Description Data Rema rce(s) Supporting Document(s) [facility] Urine Culture Laboratory test result [facility] ([facility]) {SOURCE: Random Void~NURSE COLLECTED? N Is patient fasting? N ID Date Data Source [id number] 02/15/2019 01:55:00 PM EST [facility] ([facility]) Name Value Range Interpretation Code Description Data Rema rce(s) Supporting Document(s) Source Laboratory test result [facility] ([facility]) {SOURCE: Random Void~NURSE COLLECTED? N Is patient fasting? N Urinalysis Laboratory test result [facility] ([facility]) {SOURCE: Random Void~NURSE COLLECTED? N Is patient fasting? N Color Laboratory test result [facility] ([facility]) {SOURCE: Random Void~NURSE COLLECTED? N Is patient fasting? N Spec [place] 1.020 1.001-1.030 [facility] ([facility]) {SOURCE: Random Void~NURSE COLLECTED? N Is patient fasting? N Clarity Laboratory test result [facility] ([facility]) {SOURCE: Random Void~NURSE COLLECTED? N Is patient fasting? N Glucose Laboratory test result [facility] ([facility]) {SOURCE: Random Void~NURSE COLLECTED? N Is patient fasting? N Bilirubin Laboratory test result [facility] ([facility]) {SOURCE: Random Void~NURSE COLLECTED? N Is patient fasting? N pH 5 5-9 [facility] ([facility]) {SOURCE: Random Void~NURSE COLLECTED? N Is patient fasting? N Protein Laboratory test result [facility] ([facility]) {SOURCE: Random Void~NURSE COLLECTED? N Is patient fasting? N Ketone Laboratory test result [facility] ([facility]) {SOURCE: Random Void~NURSE COLLECTED? N Is patient fasting? N Nitrite Laboratory test result [facility] ([facility]) {SOURCE: Random Void~NURSE COLLECTED? N Is patient fasting? N Leuk Est Laboratory test result [facility] ([facility]) {SOURCE: Random Void~NURSE COLLECTED? N Is patient fasting? N Blood Laboratory test result [facility] ([facility]) {SOURCE: Random Void~NURSE COLLECTED? N Is patient fasting? N Microscopic Laboratory test result [facility] ([facility]) {SOURCE: Random Void~NURSE COLLECTED? N Is patient fasting? N Urobilinogen Laboratory test result [facility] ([facility]) {SOURCE: Random Void~NURSE COLLECTED? N Is patient fasting? N ID Date Data Source [id number] 02/15/2019 01:55:00 PM EST [facility] ([facility]) Name Value Range Interpretation Code Description Data Rema rce(s) Supporting Document(s) HCG Urine Qual Laboratory test result [facility] ([facility]) {SOURCE: Random Void~NURSE COLLECTED? N Is patient fasting? N HCG Urine QL Reenter Laboratory test result [facility] ([facility]) {SOURCE: Random Void~NURSE COLLECTED? N Is patient fasting? N ID Date Data Source [id number] 02/15/2019 01:55:00 PM EST [facility] ([facility]) Name Value Range Interpretation Code Description Data Rema rce(s) Supporting Document(s) Comprehensive Metabo Laboratory test result [facility] ([facility]) {SOURCE: Random Void~NURSE COLLECTED? N Is patient fasting? N Chloride 101 meq/L 98-107 [facility] ([facility]) {SOURCE: Random Void~NURSE COLLECTED? N Is patient fasting? N Potassium 4.3 meq/L 3.6-5.0 [facility] ([facility]) {SOURCE: Random Void~NURSE COLLECTED? N Is patient fasting? N Sodium 139 meq/L 134-153 [facility] ([facility]) {SOURCE: Random Void~NURSE COLLECTED? N Is patient fasting? N Co2 26 meq/L 22-30 [facility] ([facility]) {SOURCE: Random Void~NURSE COLLECTED? N Is patient fasting? N Glucose 107 mg/dL 65-110 [facility] ([facility]) {SOURCE: Random Void~NURSE COLLECTED? N Is patient fasting? N BUN 18 mg/dL 7-21 [facility] ([facility]) {SOURCE: Random Void~NURSE COLLECTED? N Is patient fasting? N Creatinine 0.8 mg/dL 0.7-1.5 [facility] ([facility]) {SOURCE: Random Void~NURSE COLLECTED? N Is patient fasting? N BUN/Creat 23 8-27 [facility] ([facility]) {SOURCE: Random Void~NURSE COLLECTED? N Is patient fasting? N Albumin 4.0 g/dL 3.9-5.0 [facility] ([facility]) {SOURCE: Random Void~NURSE COLLECTED? N Is patient fasting? N Total Protein 7.2 g/dL 6.3-8.2 [facility] ([facility]) {SOURCE: Random Void~NURSE COLLECTED? N Is patient fasting? N Globulin 3.2 GM/DL 2.4-3.2 [facility] ([facility]) {SOURCE: Random Void~NURSE COLLECTED? N Is patient fasting? N Total Bili Laboratory test result 0.2-1.3 [facility] ([facility]) {SOURCE: Random Void~NURSE COLLECTED? N Is patient fasting? N Calcium 9.5 mg/dL 8.4-10.2 [facility] ([facility]) {SOURCE: Random Void~NURSE COLLECTED? N Is patient fasting? N A/G Ratio 1.3 0.8-2.0 [facility] ([facility]) {SOURCE: Random Void~NURSE COLLECTED? N Is patient fasting? N Alkaline Phos 95 U/L 38-126 [facility] ([facility]) {SOURCE: Random Void~NURSE COLLECTED? N Is patient fasting? N Sgot/Ast 18 U/L 5-40 [facility] ([facility]) {SOURCE: Random Void~NURSE COLLECTED? N Is patient fasting? N SGPT/Alt 16 U/L 7-56 [facility] ([facility]) {SOURCE: Random Void~NURSE COLLECTED? N Is patient fasting? N Age 38 yrs [facility] ([facility]) {SOURCE: Random Void~NURSE COLLECTED? N Is patient fasting? N Anion Gap 12.0 mmol/L 8.0-16.0 [facility] ([facility]) {SOURCE: Random Void~NURSE COLLECTED? N Is patient fasting? N Afr Amer GFR Laboratory test result [facility] ([facility]) {SOURCE: Random Void~NURSE COLLECTED? N Is patient fasting? N Non-Aa GFR Laboratory test result [facility] ([facility]) {SOURCE: Random Void~NURSE COLLECTED? N Is patient fasting? N ID Date Data Source [id number] 02/15/2019 01:55:00 PM EST [facility] ([facility]) Name Value Range Interpretation Code Description Data Rema rce(s) Supporting Document(s) WBC 8.2 10^3/uL 4.2-11.0 [facility] ([facility]) {SOURCE: Random Void~NURSE COLLECTED? N Is patient fasting? N CBC W/Automated Diff Laboratory test result [facility] ([facility]) {SOURCE: Random Void~NURSE COLLECTED? N Is patient fasting? N Hemoglobin 13.5 g/dL 12.0-16.0 [facility] ([facility]) {SOURCE: Random Void~NURSE COLLECTED? N Is patient fasting? N RBC 4.94 10^6/uL 4.20-5.40 [facility] ([facility]) {SOURCE: Random Void~NURSE COLLECTED? N Is patient fasting? N Hematocrit 41.4 % 37.0-47.0 [facility] ([facility]) {SOURCE: Random Void~NURSE COLLECTED? N Is patient fasting? N MCV 83.8 fL 81.0-101 [facility] ([facility]) {SOURCE: Random Void~NURSE COLLECTED? N Is patient fasting? N MCH 27.3 pg 27.0-34.0 [facility] ([facility]) {SOURCE: Random Void~NURSE COLLECTED? N Is patient fasting? N MCHC 32.6 g/dL 31.0-36.0 [facility] ([facility]) {SOURCE: Random Void~NURSE COLLECTED? N Is patient fasting? N Platelets 276 10^3/uL 150-450 [facility] ([facility]) {SOURCE: Random Void~NURSE COLLECTED? N Is patient fasting? N RDW 14.6 % 11.5-14.5 Above high normal [facility] ([facility]) {SOURCE: Random Void~NURSE COLLECTED? N Is patient fasting? N Lymph 26.6 % 25.0-40.0 [facility] ([facility]) {SOURCE: Random Void~NURSE COLLECTED? N Is patient fasting? N MPV 11.4 fL 7.4-10.4 Above high normal [facility] ([facility]) {SOURCE: Random Void~NURSE COLLECTED? N Is patient fasting? N Neut 59.3 % 37.0-80.0 [facility] ([facility]) {SOURCE: Random Void~NURSE COLLECTED? N Is patient fasting? N [place] 6.2 % 3.0-8.0 [facility] ([facility]) {SOURCE: Random Void~NURSE COLLECTED? N Is patient fasting? N Eos 6.8 % 0.0-7.0 [facility] ([facility]) {SOURCE: Random Void~NURSE COLLECTED? N Is patient fasting? N Baso 0.9 % 0.0-2.5 [facility] ([facility]) {SOURCE: Random Void~NURSE COLLECTED? N Is patient fasting? N %NRBC 0.0 % 0.0-0.0 [facility] ([facility]) {SOURCE: Random Void~NURSE COLLECTED? N Is patient fasting? N %Ig 0.2 % 0.0-0.0 Above high normal [facility] ([facility]) {SOURCE: Random Void~NURSE COLLECTED? N Is patient fasting? N #Neut 4.87 10^3/uL 2.00-6.90 [facility] ([facility]) {SOURCE: Random Void~NURSE COLLECTED? N Is patient fasting? N #Eos 0.56 10^3/uL 0.00-0.70 [facility] ([facility]) {SOURCE: Random Void~NURSE COLLECTED? N Is patient fasting? N #Lymph 2.18 10^3/uL 0.60-3.40 [facility] ([facility]) {SOURCE: Random Void~NURSE COLLECTED? N Is patient fasting? N #[place] 0.51 10^3/uL 0.00-0.90 [facility] ([facility]) {SOURCE: Random Void~NURSE COLLECTED? N Is patient fasting? N #Baso 0.07 10^3/uL 0.00-0.20 [facility] ([facility]) {SOURCE: Random Void~NURSE COLLECTED? N Is patient fasting? N #Ig 0.02 10^3/uL 0.00-0.10 [facility] {SOURCE: Random Void~NURSE COLLECTED? N Is patient fasting? N #NRBC 0.00 10^3/uL 0.00-0.00 [facility]) {SOURCE: Random Void~NURSE COLLECTED? N Is patient fasting? N Manual Diff Laboratory test result M [facility] ([facility]) {SOURCE: Random Void~NURSE COLLECTED? N Is patient fasting? N RBC Morph Laboratory test result [facility] ([facility]) {SOURCE: Random Void~NURSE COLLECTED? N Is patient fasting? N ID Date Data Source [id number] 02/15/2019 01:55:00 PM EST [facility] ([facility]) Name Value Range Interpretation Code Description Data Rema rce(s) Supporting Document(s) Amylase.pancreatic [Enzymatic activity/volume] in Serum or Plasm a 12 U/L 14-55 Below low normal [facility] ([facility]) {SOURCE: Random Void~NURSE COLLECTED? N Is patient fasting? N Lipase [Enzymatic activity/volume] in Serum or Plasma 27 U/L 13-6 0 [facility] ([facility]) {SOURCE: Random Void~NURSE COLLECTED? N Is patient fasting? N ID Date Data Source [id number] 02/15/2019 01:50:00 PM EST [facility] ([facility]) Name Value Range Interpretation Code Description Data Rema rce(s) Supporting Document(s) Abdomen XR 1 View <pending> [facility] ([facility]) Procedure Social History Code Duration Value Status Description Data Source(s ) Smoking 03/24/2020 12:00:00 AM EST Former Smoker completed Former Smoker eCW1 ([facility]) Smoking 03/24/2020 12:00:00 AM EST Former Smoker completed Former Smoker eCW1 ([facility]) Smoking 03/24/2020 12:00:00 AM EST Unknown if ever smoked comp leted Unknown if ever smoked [facility] ([facility]) Smoking 03/21/2020 12:00:00 AM EST Unknown if ever smoked comp leted Unknown if ever smoked [facility] ([facility]) Smoking 03/17/2020 12:00:00 AM EST Unknown if ever smoked comp leted Unknown if ever smoked [facility] ([facility]) Smoking 03/16/2020 12:00:00 AM EST Former Smoker completed Former Smoker eCW1 ([facility]) Smoking 03/06/2020 12:00:00 AM EST Former Smoker completed Former Smoker eCW1 ([facility]) Smoking 03/06/2020 12:00:00 AM EST Former Smoker completed Former Smoker eCW1 ([facility]) Smoking 03/06/2020 12:00:00 AM EST Unknown if ever smoked comp leted Unknown if ever smoked [facility] ([facility]) Smoking 02/21/2020 12:00:00 AM EST Former Smoker completed Former Smoker eCW1 ([facility]) Smoking 02/21/2020 12:00:00 AM EST Former Smoker completed Former Smoker eCW1 ([facility]) Smoking 02/21/2020 12:00:00 AM EST Former Smoker completed Former Smoker eCW1 ([facility]) Smoking 02/11/2020 12:00:00 AM EST Unknown if ever smoked comp leted Unknown if ever smoked [facility] ([facility]) Smoking 01/25/2020 12:00:00 AM EST Unknown if ever smoked comp leted Unknown if ever smoked [facility] ([facility]) Smoking 01/21/2020 12:00:00 AM EST Former Smoker completed Former Smoker eCW1 ([facility]) Smoking 01/21/2020 12:00:00 AM EST Former Smoker completed Former Smoker eCW1 ([facility]) Smoking 01/21/2020 12:00:00 AM EST Former Smoker completed Former Smoker eCW1 ([facility]) Smoking 01/10/2020 12:00:00 AM EST Unknown if ever smoked comp leted Unknown if ever smoked [facility] ([facility]) Smoking 12/30/2019 12:00:00 AM EDT Unknown if ever smoked comp leted Unknown if ever smoked [facility] ([facility]) Smoking 12/16/2019 12:00:00 AM EDT Unknown if ever smoked comp leted Unknown if ever smoked [facility] ([facility]) Smoking 12/07/2019 12:00:00 AM EDT Former Smoker completed Former Smoker eCW1 ([facility]) Smoking 12/02/2019 12:00:00 AM EDT Unknown if ever smoked comp leted Unknown if ever smoked [facility] ([facility]) Smoking 11/30/2019 12:00:00 AM EDT Unknown if ever smoked comp leted Unknown if ever smoked [facility] ([facility]) Smoking 11/09/2019 12:00:00 AM EDT Unknown if ever smoked comp leted Unknown if ever smoked [facility] ([facility]) Smoking 11/04/2019 12:00:00 AM EDT Unknown if ever smoked comp leted Unknown if ever smoked [facility] ([facility]) Smoking 09/02/2019 12:00:00 AM EDT Unknown if ever smoked comp leted Unknown if ever smoked [facility] ([facility]) Smoking 08/20/2019 12:00:00 AM EDT Unknown if ever smoked comp leted Unknown if ever smoked [facility] ([facility]) Smoking 08/17/2019 12:00:00 AM EDT Unknown if ever smoked comp leted Unknown if ever smoked [facility] ([facility]) Smoking 08/06/2019 12:00:00 AM EDT Unknown if ever smoked comp leted Unknown if ever smoked [facility] ([facility]) Smoking 07/23/2019 12:00:00 AM EDT Unknown if ever smoked comp leted Unknown if ever smoked [facility] ([facility]) Smoking 07/20/2019 12:00:00 AM EDT Unknown if ever smoked comp leted Unknown if ever smoked [facility] ([facility]) Smoking 07/06/2019 12:00:00 AM EDT Unknown if ever smoked comp leted Unknown if ever smoked [facility] ([facility]) Smoking 06/24/2019 12:00:00 AM EDT Unknown if ever smoked comp leted Unknown if ever smoked [facility] ([facility]) Smoking 06/14/2019 12:00:00 AM EDT Unknown if ever smoked comp leted Unknown if ever smoked [facility] ([facility]) Smoking 05/27/2019 12:00:00 AM EDT Unknown if ever smoked comp leted Unknown if ever smoked [facility] ([facility]) Smoking 05/24/2019 12:00:00 AM EDT Unknown if ever smoked comp leted Unknown if ever smoked [facility] ([facility]) Smoking 05/12/2019 12:00:00 AM EDT Unknown if ever smoked comp leted Unknown if ever smoked [facility] ([facility]) Smoking 04/27/2019 12:00:00 AM EST Unknown if ever smoked comp leted Unknown if ever smoked [facility] ([facility]) Smoking 04/23/2019 12:00:00 AM EST Unknown if ever smoked comp leted Unknown if ever smoked [facility] ([facility]) Smoking 04/14/2019 12:00:00 AM EST Unknown if ever smoked comp leted Unknown if ever smoked [facility] ([facility]) Smoking 03/30/2019 12:00:00 AM EST Unknown if ever smoked comp leted Unknown if ever smoked [facility] ([facility]) Smoking 03/16/2019 12:00:00 AM EST Unknown if ever smoked comp leted Unknown if ever smoked [facility] ([facility]) Smoking 03/10/2019 12:00:00 AM EST Unknown if ever smoked comp leted Unknown if ever smoked [facility] ([facility]) Smoking 02/26/2019 12:00:00 AM EST Unknown if ever smoked comp leted Unknown if ever smoked [facility] ([facility]) Smoking 02/09/2019 12:00:00 AM EST Unknown if ever smoked comp leted Unknown if ever smoked [facility] ([facility]) Vital Signs ID Date Data Source UNK Name Value Range Interpretation Code Description Data Source(s) Diastolic blood pressure 90 mm[Hg] 90 mm[Hg] eCW1 ([facility]) Systolic blood pressure 144 mm[Hg] 144 mm[Hg] e CW1 ([facility]) Body mass index (BMI) [Ratio] 47.485 kg/m2 47.4 85 kg/m2 [facility] ([facility]) Body height 66 [in_i] 66 [in_i] [facility] ([facility]) Body weight 133.45 kg 133.45 kg [facility] ([facility]) Body weight 294.2 [lb_av] 294.2 [lb_av] eCW1 ([facility]) Diastolic blood pressure 0 mm[Hg] Normal (applies to non-numeric results) 0 mm[Hg] [facility] Systolic blood pressure 0 mm[Hg] Normal (applies t o non-numeric results) 0 mm[Hg] [facility] ([facility]) Body mass index (BMI) [Ratio] 0.00 kg/m2 No rmal (applies to non-numeric results) 0.00 kg/m2 [facility] ([facility]) Body weight Measured 0.00 lbs Normal (applies to n on-numeric results) 0.00 lbs [facility] ([facility]) Body height 0.00 in Normal (applies to non-numeric resu lts) 0.00 in [facility] ([facility]) Diastolic blood pressure 78 mm[Hg] 78 mm[Hg] eCW1 ([facility]) Systolic blood pressure 128 mm[Hg] 128 mm[Hg] e CW1 ([facility]) Body mass index (BMI) [Ratio] 47.13 kg/m2 47.13 kg/m2 [facility] ([facility]) Body height 66 [in_i] 66 [in_i] W1 ([facility]) Body weight 292 [lb_av] 292 [lb_av] eCW1 ([facility]) Diastolic blood pressure 98 mm[Hg] 98 mm[Hg] eCW1 ([facility]) Systolic blood pressure 140 mm[Hg] 140 mm[Hg] e CW1 ([facility]) Body mass index (BMI) [Ratio] 46.807 kg/m2 46.8 07 kg/m2 [facility] ([facility]) Body height 66 [in_i] 66 [in_i] eCW1 ([facility]) Body weight 131.54 kg 131.54 kg eCW1 ([facility]) Body weight 290 [lb_av] 290 [lb_av] eCW1 ([facility]) Diastolic blood pressure 80 mm[Hg] 80 mm[Hg] eCW1 ([facility]) Systolic blood pressure 118 mm[Hg] 118 mm[Hg] e CW1 ([facility]) Body mass index (BMI) [Ratio] 46.517 kg/m2 46.5 17 kg/m2 W1 ([facility]) Body height 66 [in_i] 66 [in_i] eCW1 ([facility]) Body weight 130.73 kg 130.73 kg W1 ([facility]) Body weight 288.2 [lb_av] 288.2 [lb_av] eCW1 ([facility]) Diastolic blood pressure 0 mm[Hg] Normal (applies to non-numeric results) 0 mm[Hg] [facility] Systolic blood pressure 0 mm[Hg] Normal (applies t o non-numeric results) 0 mm[Hg] [facility] ([facility]) Body mass index (BMI) [Ratio] 0.00 kg/m2 No rmal (applies to non-numeric results) 0.00 kg/m2 [facility] ([facility]) Body weight Measured 0.00 lbs Normal (applies to n on-numeric results) 0.00 lbs [facility] ([facility]) Body height 0.00 in Normal (applies to non-numeric resu lts) 0.00 in [facility] ([facility]) Diastolic blood pressure 76 mm[Hg] 76 mm[Hg] eCW1 ([facility]) Systolic blood pressure 136 mm[Hg] 136 mm[Hg] e CW1 ([facility]) Body mass index (BMI) [Ratio] 46.323 kg/m2 46.3 23 kg/m2 W1 ([facility]) Body height 66 [in_i] 66 [in_i] eCW1 ([facility]) Body weight 287 [lb_av] 287 [lb_av] eCW1 ([facility]) Diastolic blood pressure 72 mm[Hg] 72 mm[Hg] eCW1 ([facility]) Systolic blood pressure 124 mm[Hg] 124 mm[Hg] e CW1 ([facility]) Body mass index (BMI) [Ratio] 46.162 kg/m2 46.1 62 kg/m2 eCW1 ([facility]) Body height 66 [in_i] 66 [in_i] eCW1 ([facility]) Body weight 129.73 kg 129.73 kg eCW1 ([facility]) Body weight 286 [lb_av] 286 [lb_av] eCW1 ([facility]) Diastolic blood pressure 0 mm[Hg] Normal (applies to non-numeric results) 0 mm[Hg] [facility] ([facility]) Systolic blood pressure 0 mm[Hg] Normal (applies t o non-numeric results) 0 mm[Hg] [facility] ([facility]) Body mass index (BMI) [Ratio] 0.00 kg/m2 No rmal (applies to non-numeric results) 0.00 kg/m2 [facility] ([facility]) Body weight Measured 0.00 lbs Normal (applies to n on-numeric results) 0.00 lbs [facility] ([facility]) Body height 0.00 in Normal (applies to non-numeric resu lts) 0.00 in [facility] ([facility]) Diastolic blood pressure 76 mm[Hg] 76 mm[Hg] eCW1 ([facility]) Systolic blood pressure 110 mm[Hg] 110 mm[Hg] e CW1 ([facility]) Body mass index (BMI) [Ratio] 45.839 kg/m2 45.8 39 kg/m2 eCW1 ([facility]) Body height 66 [in_i] 66 [in_i] eCW1 ([facility]) Body weight 284.0 [lb_av] 284.0 [lb_av] eCW1 ([facility]) Diastolic blood pressure 0 mm[Hg] Normal (applies to non-numeric results) 0 mm[Hg] [facility] ([facility]) Systolic blood pressure 0 mm[Hg] Normal (applies t o non-numeric results) 0 mm[Hg] [facility] ([facility]) Body mass index (BMI) [Ratio] 0.00 kg/m2 No rmal (applies to non-numeric results) 0.00 kg/m2 [facility] ([facility]) Body weight Measured 0.00 lbs Normal (applies to n on-numeric results) 0.00 lbs [facility] ([facility]) Body height 0.00 in Normal (applies to non-numeric resu lts) 0.00 in [facility] ([facility]) Diastolic blood pressure 0 mm[Hg] Normal (applies to non-numeric results) 0 mm[Hg] [facility] ([facility]) Systolic blood pressure 0 mm[Hg] Normal (applies t o non-numeric results) 0 mm[Hg] [facility] ([facility]) Body mass index (BMI) [Ratio] 0.00 kg/m2 No rmal (applies to non-numeric results) 0.00 kg/m2 [facility] ([facility]) Body weight Measured 0.00 lbs Normal (applies to n on-numeric results) 0.00 lbs [facility] ([facility]) Body height 0.00 in Normal (applies to non-numeric resu lts) 0.00 in [facility] ([facility]) Diastolic blood pressure 0 mm[Hg] Normal (applies to non-numeric results) 0 mm[Hg] [facility] ([facility]) Systolic blood pressure 0 mm[Hg] Normal (applies t o non-numeric results) 0 mm[Hg] [facility] ([facility]) Body mass index (BMI) [Ratio] 0.00 kg/m2 No rmal (applies to non-numeric results) 0.00 kg/m2 [facility] ([facility]) Body weight Measured 0.00 lbs Normal (applies to n on-numeric results) 0.00 lbs [facility] ([facility]) Body height 0.00 in Normal (applies to non-numeric resu lts) 0.00 in [facility] ([facility]) Diastolic blood pressure 0 mm[Hg] Normal (applies to non-numeric results) 0 mm[Hg] [facility]) Systolic blood pressure 0 mm[Hg] Normal (applies t o non-numeric results) 0 mm[Hg] [facility] Body mass index (BMI) [Ratio] 0.00 kg/m2 No rmal (applies to non-numeric results) 0.00 kg/m2 [facility] ([facility]) Body weight Measured 0.00 lbs Normal (applies to n on-numeric results) 0.00 lbs [facility] ([facility]) Body height 0.00 in Normal (applies to non-numeric resu lts) 0.00 in [facility] ([facility]) Body weight 128.369 kg 128.369 kg [facility] ([facility]) Body weight 283.00 [lb_av] 283.00 [lb_av] MEDEN T ([facility]) Oxygen saturation in Arterial blood by [facility] 98 % 98 % [facility] Respiratory rate 18 /min 18 /min [facility] ( [facility]) Body temperature 97.8 [degF] 97.8 [degF] [facility] ([facility]) Heart rate 64 /min 64 /min [facility] Diastolic blood pressure 82 mm[Hg] 82 mm[Hg] [facility] ([facility]) Systolic blood pressure 134 mm[Hg] 134 mm[Hg] [facility] ([facility]) Diastolic blood pressure 0 mm[Hg] Normal (applies to non-numeric results) 0 mm[Hg] [facility] ([facility]) Systolic blood pressure 0 mm[Hg] Normal (applies t o non-numeric results) 0 mm[Hg] [facility] ([facility]) Body mass index (BMI) [Ratio] 0.00 kg/m2 No rmal (applies to non-numeric results) 0.00 kg/m2 [facility] Body weight Measured 0.00 lbs Normal (applies to n on-numeric results) 0.00 lbs [facility] Body height 0.00 in Normal (applies to non-numeric resu lts) 0.00 in [facility] ([facility]) Body weight 128.822 kg 128.822 kg [facility] ([facility]) Body weight 284.00 [lb_av] 284.00 [lb_av] [facility] T ([facility]) Oxygen saturation in Arterial blood by Pulse oximetry 99 % 99 % [facility] ([facility]) Respiratory rate 16 /min 16 /min [facility] ( [facility]) Body temperature 97.6 [degF] 97.6 [degF] [facility] ([facility]) Heart rate 66 /min 66 /min [facility] ([facility]) Diastolic blood pressure 82 mm[Hg] 82 mm[Hg] [facility] ([facility]) Systolic blood pressure 122 mm[Hg] 122 mm[Hg] M [facility] ([facility]) Diastolic blood pressure 0 mm[Hg] Normal (applies to non-numeric results) 0 mm[Hg] [facility] ([facility]) Systolic blood pressure 0 mm[Hg] Normal (applies t o non-numeric results) 0 mm[Hg] [facility] ([facility]) Body mass index (BMI) [Ratio] 0.00 kg/m2 No rmal (applies to non-numeric results) 0.00 kg/m2 [facility] ([facility]) Body weight Measured 0.00 lbs Normal (applies to n on-numeric results) 0.00 lbs [facility] ([facility]) Body height 0.00 in Normal (applies to non-numeric resu lts) 0.00 in [facility] ([facility]) Diastolic blood pressure 0 mm[Hg] Normal (applies to non-numeric results) 0 mm[Hg] [facility] ([facility]) Systolic blood pressure 0 mm[Hg] Normal (applies t o non-numeric results) 0 mm[Hg] [facility] ([facility]) Body mass index (BMI) [Ratio] 0.00 kg/m2 No rmal (applies to non-numeric results) 0.00 kg/m2 [facility] ([facility]) Body weight Measured 0.00 lbs Normal (applies to n on-numeric results) 0.00 lbs [facility] ([facility]) Body height 0.00 in Normal (applies to non-numeric resu lts) 0.00 in [facility] ([facility]) Diastolic blood pressure 0 mm[Hg] Normal (applies to non-numeric results) 0 mm[Hg] [facility] ([facility]) Systolic blood pressure 0 mm[Hg] Normal (applies t o non-numeric results) 0 mm[Hg] [facility] ([facility]) Body mass index (BMI) [Ratio] 0.00 kg/m2 No rmal (applies to non-numeric results) 0.00 kg/m2 [facility] ([facility]) Body weight Measured 0.00 lbs Normal (applies to n on-numeric results) 0.00 lbs [facility] ([facility]) Body height 0.00 in Normal (applies to non-numeric resu lts) 0.00 in [facility] ([facility]) Diastolic blood pressure 82 mm[Hg] 82 mm[Hg] eCW1 ([facility]) Systolic blood pressure 128 mm[Hg] 128 mm[Hg] e CW1 ([facility]) Body temperature 97.8 [degF] 97.8 [degF] eCW1 ( [facility]) Respiratory rate 18 /min 18 /min eCW1 ([facility]) Heart rate 87 /min 87 /min eCW1 ([facility]) Body mass index (BMI) [Ratio] 45.74 kg/m2 45.74 kg/m2 W1 ([facility]) Body height 66 [in_us] 66 [in_us] eCW1 ([facility]) Body weight Measured 283.4 [lb_av] 283.4 [lb_av ] eCW1 ([facility]) Body weight 126.101 kg 126.101 kg [facility] ([facility]) Body weight 278.00 [lb_av] 278.00 [lb_av] MED[facility] T ([facility]) appox unable to get on scale today Oxygen saturation in Arterial blood by Pulse oximetry 97 % 97 % [facility] ([facility]) Respiratory rate 18 /min 18 /min [facility] ( [facility]) Body temperature 98.6 [degF] 98.6 [degF] [facility] ([facility]) Heart rate 86 /min 86 /min [facility] ([facility]) Diastolic blood pressure 80 mm[Hg] 80 mm[Hg] [facility] ([facility]) Systolic blood pressure 130 mm[Hg] 130 mm[Hg] [facility] ([facility]) Body surface area 2.30 m2 2.30 m2 [facility] Body mass index (BMI) [Ratio] 44.9 kg/m2 44.9 k g/m2 [facility]) Body height 66 [in_i] 66 [in_i] [facility] ([facility]) 5'6" Body height 66 [in_i] 66 [in_i] [facility] ([facility]) 5'6" Body weight 126.214 kg 126.214 kg [facility] ([facility]) Body weight 278.25 [lb_av] 278.25 [lb_av] [facility] T ([facility]) Oxygen saturation in Arterial blood by Pulse oximetry 99 % 99 % [facility] Respiratory rate 16 /min 16 /min [facility] ( [facility]) Body temperature 97.1 [degF] 97.1 [degF] [facility] ([facility]) Heart rate 68 /min 68 /min [facility] Diastolic blood pressure 78 mm[Hg] 78 mm[Hg] [facility]) Systolic blood pressure 120 mm[Hg] 120 mm[Hg] [facility] Body surface area 2.30 m2 2.30 m2 [facility]) Body mass index (BMI) [Ratio] 44.9 kg/m2 44.9 k g/m2 [facility] ([facility]) Diastolic blood pressure 0 mm[Hg] Normal (applies to non-numeric results) 0 mm[Hg] [facility] ([facility]) Systolic blood pressure 0 mm[Hg] Normal (applies t o non-numeric results) 0 mm[Hg] [facility] ([facility]) Body mass index (BMI) [Ratio] 0.00 kg/m2 No rmal (applies to non-numeric results) 0.00 kg/m2 [facility] ([facility]) Body weight Measured 0.00 lbs Normal (applies to n on-numeric results) 0.00 lbs [facility] Body height 0.00 in Normal (applies to non-numeric resu lts) 0.00 in [facility] ([facility]) Body surface area 2.27 m2 2.27 m2 [facility] ([facility]) Body mass index (BMI) [Ratio] 43.6 kg/m2 43.6 k g/m2 [facility] ([facility]) Body height 66 [in_i] 66 [in_i] [facility] ([facility]) 5'6" Body weight 122.472 kg 122.472 kg [facility] ([facility]) Body weight 270.00 [lb_av] 270.00 [lb_av] [facility] ([facility]) Oxygen saturation in Arterial blood by Pulse oximetry 98 % 98 % [facility] Respiratory rate 18 /min 18 /min [facility] ( [facility]) Body temperature 97.9 [degF] 97.9 [degF] [facility]) Heart rate 72 /min 72 /min [facility] ([facility]) Diastolic blood pressure 60 mm[Hg] 60 mm[Hg] [facility] ([facility]) Systolic blood pressure 132 mm[Hg] 132 mm[Hg] M [facility] ([facility]) Body surface area 2.29 m2 2.29 m2 [facility] ([facility]) Body mass index (BMI) [Ratio] 44.2 kg/m2 44.2 k g/m2 [facility] ([facility]) Body height 66 [in_i] 66 [in_i] [facility] ([facility]) 5'6" Body weight 124.286 kg 124.286 kg [facility] ([facility]) Body weight 274.00 [lb_av] 274.00 [lb_av] [facility] ([facility]) Oxygen saturation in Arterial blood by Pulse oximetry 97 % 97 % [facility] ([facility]) Respiratory rate 18 /min 18 /min [facility] ( [facility]) Body temperature 97.8 [degF] 97.8 [degF] [facility]) Heart rate 78 /min 78 /min [facility] ([facility]) Diastolic blood pressure 76 mm[Hg] 76 mm[Hg] [facility] ([facility]) Systolic blood pressure 126 mm[Hg] 126 mm[Hg] M [facility] ([facility]) ID Date Data Source [id number] 03/02/2020 10:20:45 AM EST [facility] Name Value Range Interpretation Code Description Data Source(s) TRANSFER FROM [facility] Patient Treatment Plan of Care Planned Activity Planned Date Details Description Data Source (s) Metronidazole 500 MG Oral Tablet 03/10/2020 12:00:00 AM EST eCW1 ([facility]) Metronidazole 500 MG Oral Tablet 03/10/2020 12:00:00 AM EST eCW1 ([facility]) Acetaminophen 325 MG / butalbital 50 MG / Caffeine 40 MG Oral Capsule [[facility]] 02/28/2020 12:00:00 AM EST eCW1 ([facility]) Acetaminophen 325 MG / butalbital 50 MG / Caffeine 40 MG Oral Capsule [[facility]] 02/28/2020 12:00:00 AM EST eCW1 ([facility])
[2020-04-04] MEDS ORDERED: OXYTOCIN INJ 10 UNITS/ML VIAL (J2590) As Ordered ONE (23:27)
[2020-04-04] MEDS ORDERED: ceFAZolin SOD 2 GM in IV 1 EA IV ONE (23:30)
[2020-04-04] MEDS ORDERED: BICITRA 30ML SOLN UDC PO ONE (23:30)
[2020-04-04] MEDS ORDERED: MORPHINE PRES-FREE INJ 10 MG/10 ML VIAL (J2274) As Ordered ONE (23:31)
--- NOTE | 2020-04-04 23:42 | HPEPDOC ---
Obstetrical History & Physical General Date of Admission Apr 04, 2020 at 23:16 History of Present Illness 39 yo female at 35 5/7 weeks gestation by 12 wek ultrasound (EDC= 05/05/2020) presents with severe headaches for two days. Headaches not relieved by tylenol. She was noted to have elevated BP in the office today. BP in triage was 168/104. Information Provided By: Patient Age: 39 : 3 Term: 1 Pre-term: 0 Abortions: 1 Livin Care Care: Good Care Dating Final EDC by: 1st trimester (US) Past Medical History Past Obstetrical History : Type of Delivery: Ceserean section Past Medical History Medical History History Schizoaffective Disorder Vitamin D Deficiency Hearing Loss unknown etiology est w/ audiology and ENT w/ Dr. Ribera, wears hearing aid Obstructive Sleep Apnea use CPAP Asthma hx ruptured disc hx pleurisy hx shunt placed in head at due to hydrocephalus hx tubes in ears b/l at hx thyroid nodules being followed by endocrinology migraines follows w/ Ericka Tate [facility] C. diff colitis 03/15 freq abscess and h/o MRSA hx ovarian cysts hx moderate cervical dysplasia (LISA I-II) w/LEEP infertility issues fibrocystic breast disease Surgical History: section Family History Significant Family History: No pertinent family hx Social History Marital Status: Single Family situation: Spouse/partner home * Smoker: former Smoker Alcohol: Denies Drugs: denies Allergies Coded Allergies: SEAFOOD (Verified Allergy, Severe, HIVES, DIFFICULTY BREATHING, 03/31/20) amitriptyline (Verified Allergy, Intermediate, HIVES... and see comments, 03/31/20) pt states she overdosed on amitriptyline and stopped breathing atenolol (Verified Allergy, Intermediate, hives, 03/31/20) cyclobenzaprine (Verified Allergy, Intermediate, hives, 03/31/20) nortriptyline (Verified Allergy, Intermediate, upset stomach, hives, 03/31/20) tramadol (Verified Allergy, Intermediate, hives, 03/31/20) PT REPORTS RECENTLY RECEIVED WITHOUT ISSUE gabapentin (Verified Allergy, Mild, RASH, 03/31/20) povidone-iodine (Verified Allergy, Unknown, 04/04/20) soap (Verified Allergy, Unknown, 04/04/20) risperidone (Verified Adverse Reaction, Intermediate, dizzy, 03/31/20) ziprasidone (Verified Adverse Reaction, Intermediate, paranoid, 03/31/20) sumatriptan (Verified Adverse Reaction, Mild, pins and needles , 03/31/20) Medications Scheduled Acyclovir (Acyclovir) 800 Mg Tablet, 1 TAB PO 5XD Aspirin (Aspirin EC) 81 Mg Tablet.dr, 81 MG PO DAILY Butalb/Acetaminophen/Caffeine (Jvmikx-Zsnvudos-Dnkx 50-325-40) 1 Each Capsule, PRN Cholecalciferol (Vitamin D3) (Vitamin D3) 25 Mcg Tablet, 25 MCG PO DAILY Diphenhydramine HCl (Benadryl) 25 Mg Capsule, 2 CAP PO QPM Vit37/Iron/Folic Acid (Prenata Chewable Tablet) 1 Each Tab.chew, 1 TAB PO DAILY Physical Examination Physical Examination GENERAL: Alert and oriented times three. BREAST: . ABDOMEN: Gravid and non-tender to touch. FETUS: Is vertex (VTX) by sterile vaginal examination (SVE), fetus is vertex (VTX) by Pasha. HEART RATE: Regular rate and rhythm. LUNGS: Clear to auscultation (CTA). EXTREMITIES: No edema. No clonus. Deep tendon reflexes (DTRs) + . Vital Signs/I&O Vital Signs Date Time Temp Pulse Resp B/P (MAP) Pulse Ox O2 Delivery O2 Flow Rate FiO2 04/04/20 22:52 85 18 169/86 (113) Room Air 04/04/20 21:33 99.0 04/04/20 19:17 99 Laboratory Data 24H LABS Laboratory Tests 2 04/04/20 19:00: Urine Protein TRACE, Urine Random Creatinine 157.0 04/04/20 21:19: Nucleated Red Blood Cells % (auto) 0.0, Glomerular Filtration Rate > 60.0, Uric Acid 4.7, Total Bilirubin 0.2, Aspartate Amino Transf (AST/SGOT) 8, Alanine Aminotransferase (ALT/SGPT) 13, Lactate Dehydrogenase 134 04/04/20 23:19: Serology Scanned Report Hepatitis B Testing CBC/BMP Laboratory Tests 04/04/20 21:19 Assessment Variability: Moderate Accelerations: Positive Decelerations: None Tocometer Contractions: No Assessment/Plan Assessment Pt is a 39 year-old (G)3 para (P)1 at 35+5 weeks by 12-week ultrasound presents to Labor and Delivery with a diagnosis of preeclampsia. Plan Admit and orient. 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 Plan repeat and tubal ligation Do not believe delaying delivery will be beneficial given severe blood pressure and headaches GILBERTO GRISSOM MD Apr 04, 2020 23:42
[2020-04-04] MEDS ORDERED: LR 1,000 ML IV ONE (23:45)
[2020-04-05] MEDS ORDERED: METOCLOPRAMIDE INJ 10MG/2ML VIAL (J2765 PER 1) IV PRN ×2 (00:11→01:15)
[2020-04-05] MEDS ORDERED: ONDANSETRON 4MG/2ML VIAL IV PRN ×3 (00:11→01:15)
[2020-04-05] MEDS ORDERED: NALBUPHINE HCL 10 MG/ML AMP (J2300) IV PRN (00:11)
[2020-04-05] MEDS ORDERED: NALOXONE INJ 0.4MG/1ML VIAL (J2310 PER 1MG) IV PRN ×2 (00:11)
[2020-04-05] MEDS ORDERED: ONDANSETRON 4MG/2ML VIAL As Ordered ONE (00:14)
[2020-04-05] MEDS ORDERED: ePHEDrine SULFATE 25 MG/5 ML(5MG/ML) SYRINGE As Ordered ONE (00:16)
[2020-04-05] MEDS ORDERED: PHENYLephrine 500MCG 5ML (100MCG/ML) SYRINGE As Ordered ONE (00:31)
[2020-04-05] MEDS ORDERED: KETOROLAC 60MG 2ML VIAL As Ordered ONE (00:58)
[2020-04-05] MEDS ORDERED: OXYTOCIN DRIP 30 UNITS in IV 1 EA IV SCH (01:07)
[2020-04-05] MEDS ORDERED: RHOGAM 300 MCG (1500 IU) INJ (J2790) IM SCH (01:15)
[2020-04-05] MEDS ORDERED: LR 1,000 ML IV SCH (01:15)
[2020-04-05] MEDS ORDERED: PERCOCET 5MG/325MG TAB PO PRN ×2 (01:15)
[2020-04-05] MEDS ORDERED: MEASLES,MUMPS,RUBELLA VACCINE INJ (MMR-II) (90707) SC SCH (01:15)
[2020-04-05] MEDS ORDERED: fentaNYL 100 MCG/2 ML INJECTION (J3010) IV PRN (01:15)
--- NOTE | 2020-04-05 01:24 | ROOPDOC ---
[facility] Report Of Operation Report of Operation DATE OF PROCEDURE: 04/05/20 Report of operation Preoperative diagnosis: 35 5/7 weeks, preeclampsia, prior Postoperative diagnosis: Same Procedure: Repeat low transverse section and bilateral tubal ligation. Surgeon: Gilberto Grissom M.D. Asst.: Larry Hicks M.D. EBL: 500 ml. Urine output: 100 mL's. Findings: . 6# 5 oz male infant, Apgars 8 and 9 g normal uterus, fallopian tubes, ovaries. Operative summary: Patient taken to the operating room where spinal anesthesia was induced. She wass prepped draped sterile fashion in the supine position. A Teague catheter was placed. A Pfannenstiel skin incision was made with scalpel. Fascia was incised and extended bilaterally. The peritoneal cavity was entered. A Mobius retractor was placed. A bladder flap was created. A curvilinear i ncision was made in lower uterine segment until Clear fluid was noted. The incision was extended manually. The was delivered from the vertex position without difficulty. Cord was double clamped and cut. The was handed waiting nurses. . The placenta was expressed. Uterus was closed with O- Vicryl in a running locked fashion. A second imbricating layer of Vicryl was placed. Attention was turned to the fallopian tubes. A [place] clamp was used to grasp the fallopian tubes at the midportion.. A window was created in the broad ligament free tie of 2-0 chromic was placed around the segment of tube on either side of the clamp. A Segment of tube was excised bilaterally and sent to pathology. Peritoneum was closed with 2-0 Vicryl a running fashion. Fascia was closed with 0 Vicryl in running fashion. Skin was closed 4-0 Monocryl subcuticular sutures. Sponge, instrument and needle counts were correct. Larry Hicks M.D., assisted with all aspects of the procedure. He helped each layer of the incision and deliver the fetus. GILBERTO GRISSOM MD Apr 05, 2020 01:24
[2020-04-05] MEDS ORDERED: OXYTOCIN 30 UNITS IN 0.9% NaCl 500ML IV BAG (J2590) As Ordered ONE (02:14)
[2020-04-05 03:15] VITALS: BP 125/63
[2020-04-05] MEDS: LR 1,000 ML IV SCH ×2 (03:37→09:07)
[2020-04-05 06:00] VITALS: BP 144/60
[2020-04-05] MEDS: KETOROLAC 30 MG/ML 1ML VIAL IV SCH ×3 (06:50→19:35)
[2020-04-05] MEDS: PRENATAL VITAMINS CHEWABLE TABLET PO SCH (07:42)
[2020-04-05 10:00] VITALS: BP 123/63
[2020-04-05] MEDS ORDERED: LACTATED RINGER'S 1000 ML IV ONE (11:00)
[2020-04-05] MEDS ORDERED: IBUP80TA PO (13:46)
[2020-04-05] MEDS ORDERED: OXYC1TAB23 PO (13:46)
[2020-04-05 14:00] VITALS: BP 126/58
[2020-04-05] MEDS: diphenhydrAMINE 50MG/ML VIAL (J1200) IV PRN ×2 (14:52→19:34)
[2020-04-05 18:00] VITALS: BP 138/73
[2020-04-05] MEDS: DOCUSATE SODIUM 100MG CAPSULE PO PRN (19:33)
[2020-04-05 22:00] VITALS: BP 129/65
[2020-04-06 02:00] VITALS: BP 130/62
[2020-04-06] MEDS: IBUPROFEN 800 MG TAB PO SCH ×3 (02:25→20:01)
[2020-04-06 06:00] VITALS: BP 127/63
[2020-04-06] MEDS: PRENATAL VITAMINS CHEWABLE TABLET PO SCH (07:43)
[2020-04-06] MEDS: ACETAMINOPHEN 500 MG TAB PO PRN ×2 (07:43→14:15)
[2020-04-06] MEDS ORDERED: BOOSTRIX/ADACEL VACCINE (DIPHTH/PERTUSS/ACELL/TETANUS) 0.5ML SYR IM ONE (09:00)
[2020-04-06 09:01] LABS: HEMATOCRIT 33.6 % (36.0-47.0); HEMOGLOBIN 11.2 g/dl (12.0-15.5); MEAN CORPUSCULAR HEMOGLOBIN 30.6 pg (27.0-33.0); MEAN CORPUSCULAR HGB CONC 33.3 g/dl (32.0-36.5); MEAN CORPUSCULAR VOLUME 91.8 fl (80.0-96.0); PLATELET COUNT, AUTOMATED 169 10^3/uL (150-450); RED BLOOD COUNT 3.66 10^6/uL (4.00-5.40)
[2020-04-06 10:00] VITALS: BP 138/65
[2020-04-06 14:00] VITALS: BP 139/63
[2020-04-06 18:00] VITALS: BP 139/86
[2020-04-06] MEDS: PERCOCET 5MG/325MG TAB PO PRN (19:21)
[2020-04-06] MEDS: DOCUSATE SODIUM 100MG CAPSULE PO PRN (20:00)
[2020-04-06 22:00] VITALS: BP 148/74
[2020-04-07 02:00] VITALS: BP 145/81
[2020-04-07] MEDS: PERCOCET 5MG/325MG TAB PO PRN ×2 (02:05→05:38)
[2020-04-07] MEDS: IBUPROFEN 800 MG TAB PO SCH (02:55)
[2020-04-07 05:52] VITALS: BP 144/75
--- NOTE | 2020-04-07 08:10 | DS.PDOC ---
Discharge Summary General Date of Admission Apr 04, 2020 at 23:16 Date of Discharge 2020 Attending Physician: GILBERTO GRISSOM MD Discharge Summary PROCEDURES PERFORMED DURING STAY: [None]. ADMITTING DIAGNOSES: 1. 35 5/7 weeks, preeclampsia. DISCHARGE DIAGNOSES: 1. same. COMPLICATIONS/CHIEF COMPLAINT: Headaches, elevated BP HISTORY OF PRESENT ILLNESS: .39 yo female at 35 5/7 weeks gestation by 12 week ultrasound (EDC= 05/05/2020) presents with severe headaches for two days. Headaches not relieved by tylenol. She was noted to have elevated BP in the office. BP in triage was 168/104. HOSPITAL COURSE: The patient present to triage with c/o severe headaches for two days. Even Fioricet was not helping her headaches. She was evaluated and observed for preeclampsia. The decision was made to proceed to delivery due to severe range blood pressures and headaches. On 04/05/2020 she had repeat and TL for a 6# 5 oz male. No complications. Her post operative course was unremarkable. She had adequate return of bladder and bowel function. Baby was admitted to NICU, and subsequently transferred to [facility]. DISCHARGE MEDICATIONS: Please see below. ALLERGIES: Please see below. PHYSICAL EXAMINATION ON DISCHARGE: VITAL SIGNS: Please see below. GENERAL: NAD HEENT: WNL CARDIOVASCULAR EXAMINATION: RRR RESPIRATORY EXAMINATION: CTA ABDOMINAL EXAMINATION: NT, I C/D/I EXTREMITIES: tr edema LABORATORY DATA: Please see below. ACTIVITY: As tolerated. DIET: reg DISCHARGE PLAN: d/c home DISCHARGE INSTRUCTIONS: 1.D/C home 2. instructions reviewed 3. 2 weeks for follow up DISCHARGE CONDITION: Stable. TIME SPENT ON DISCHARGE: Greater than 10 minutes. Vital Signs/I&Os Vital Signs Date Time Temp Pulse Resp B/P (MAP) Pulse Ox O2 Delivery O2 Flow Rate FiO2 04/07/20 05:52 97.9 86 16 144/75 (98) 97 Room Air I&O- Last 24 Hours up to 6 AM 04/07/20 06:00 Intake Total 500 ml Balance 500 ml Laboratory Data Labs 24H Laboratory Tests 2 04/06/20 18:45: Coronavirus (COVID-19)(PCR) NEGATIVE Discharge Medications Scheduled Cholecalciferol (Vitamin D3) (Vitamin D3) 25 Mcg Tablet, 25 MCG PO DAILY, (Reported) Diphenhydramine HCl (Benadryl) 25 Mg Capsule, 2 CAP PO QPM, (Reported) Ibuprofen (Ibuprofen) 800 Mg Tablet, 800 MG PO Q8H Vit37/Iron/Folic Acid (Prenata Chewable Tablet) 1 Each Tab.chew, 1 TAB PO DAILY, (Reported) Scheduled PRN Oxycodone HCl/Acetaminophen (Oxycodone-Acetaminophen 5-325) 1 Each Tablet, 1 TAB PO TIDP PRN for pain Allergies Coded Allergies: SEAFOOD (Verified Allergy, Severe, HIVES, DIFFICULTY BREATHING, 03/31/20) amitriptyline (Verified Allergy, Intermediate, HIVES... and see comments, 03/31/20) pt states she overdosed on amitriptyline and stopped breathing atenolol (Verified Allergy, Intermediate, hives, 03/31/20) cyclobenzaprine (Verified Allergy, Intermediate, hives, 03/31/20) nortriptyline (Verified Allergy, Intermediate, upset stomach, hives, 03/31/20) tramadol (Verified Allergy, Intermediate, hives, 03/31/20) PT REPORTS RECENTLY RECEIVED WITHOUT ISSUE gabapentin (Verified Allergy, Mild, RASH, 03/31/20) povidone-iodine (Verified Allergy, Unknown, 04/04/20) soap (Verified Allergy, Unknown, 04/04/20) risperidone (Verified Adverse Reaction, Intermediate, dizzy, 03/31/20) ziprasidone (Verified Adverse Reaction, Intermediate, paranoid, 03/31/20) sumatriptan (Verified Adverse Reaction, Mild, pins and needles , 03/31/20) GILBERTO GRISSOM MD Apr 07, 2020 08:09
[2020-04-07] MEDS: PRENATAL VITAMINS CHEWABLE TABLET PO SCH (08:26)
== END 2020-04-07 09:00 | disposition home or self-care (01) | DRG 540 ==
LOC: M LDO 18:41 → M LDI 23:16 → M OBS 04-05 02:56
PROVIDERS: ADMIT Specialist; ATTEND Specialist
PROC: 0UB70ZZ Excision of Bilateral Fallopian Tubes, Open Approach (ICD-10-PCS; 2020-04-05)
PROC: 10D00Z1 Extraction of Products of Conception, Low, Open Approach (ICD-10-PCS; principal; 2020-04-05 00:30)
DX: O14.14 Severe pre-eclampsia complicating childbirth (principal); Z3A.35 35 weeks gestation of pregnancy; Z37.0 Single live birth; O34.211 Maternal care for low transverse scar from previous cesarean delivery; Z30.2 Encounter for sterilization

== ENCOUNTER 2020-04-23 17:07 | Emergency (ER) | payer OTHER ==
[~2020-04-23] VITALS: Ht 167.6 cm; Wt 127.3 kg
[~2020-04-23 17:07] MED LIST changes: +OXYC1TAB23 PO
--- OUTSIDE RECORDS SUMMARY | 2020-04-23 17:12 | CCD ---
Author Author [facility] Organization [facility] Address Unknown Phone Unavailable Care Team Providers Care Cotton Broker Name Role Phone Radha Restrepo Unavailable PROBLEMS Type Condition ICD9-CM Code [id number] Code Onset Dates Condition S tatus W/U Status Risk SNOMED Code Notes Problem Contusion of upper arm 923.03 Active confirmed 82243563 Problem Obesity, unspecified 278.00 Active confirmed 175272001 Problem Contusion of abdominal wall 922.2 Active confirmed 30538943 Problem Spontaneous ecchymoses 782.7 Active confirmed 453688649 Problem Low vision, one eye, not otherwise specified 369.70 Active confirmed 38321559 Problem Elevated blood pressure reading without diagnosi s of hypertension 796.2 Active confirmed 147693752 Problem Contusion of hand(s) 923.20 Active confirmed 5889963 Problem Routine gynecological examination V72.31 Active confirmed 531946085525916 Problem Other screening breast examination V76.19 Activ e confirmed 49574169 Problem Asthma, unspecified, unspecified status 493.90 Active confirmed 13175233 Problem Decreased hearing 389.9 Active confirmed 10 1085876 Problem Abscess 682.9 Active confirmed 127322991 Problem Lump or mass in breast 611.72 Active confirmed 18867507 Problem Sebaceous cyst 706.2 Active confirmed 93113 3000 Problem Hx of ovarian cyst V13.29 Active confirmed 7 8355713 Problem Hx of infertility V13.29 Active confirmed Problem Fibrocystic breast disease 610.1 Active confirmed 93339926 Problem History of cervical dysplasia V13.22 Active confirm ed 406253929 Problem Pelvic pain in female 625.9 Active confirmed 970959999 Problem GERD (gastroesophageal reflux disease) 530.81 A ctive confirmed 505167934 Problem Myalgia M79.1 Active confirmed 25321070 Problem Obesity complicating in third trimester O99.213 Active confirmed Problem Candidal vaginitis 112.1 Active confirmed 7 6137072 Problem Body mass index (BMI) 40.0-44.9, adult Z68.41 A ctive confirmed 176757464 Problem Diarrhea 787.91 Active confirmed 28380609 Problem Intestinal infections due to clostridium difficile 008.45 Active confirmed 624334220 Problem Elevated C-reactive protein (CRP) R79.82 Active confirmed 711930031952136 Problem Fibromyalgia M79.7 Active confirmed 7921161 05 Problem Supervision of other normal Z34.80 Ac tive confirm 483359658 Problem Obesity complicating in second trimester O99.212 Active confirmed 815972595807 ALLERGIES Allergen (clinical drug ingredient) Drug/Non Drug Allergy do cumented on EMR Reaction Allergy Type Onset Date Status seafood, fish Angioedema Non Drug Allergy Activ e cyclobenzaprine Cyclobenzaprine HCl(ND Code:[address]-88) Hives Drug Allergy Active tramadol Tramadol HCl(NDC Code:[address]-01) Hives Drug Aller gy Active Geodon Paranoid Non Drug Allergy Active Sea Food Anaphylaxis Non Drug Allergy Active atenolol 100 Hives Drug Allergy Active ziprasidone Ziprasidone HCl(ND Code:[address]-03) Hives Drug A llergy Active nortriptyline Nortriptyline HCl(NDC Code:[address]-07) Hives Dr ug Allergy Active Flexeril Hives Drug Allergy Active risperidone Risperidone(NDC Code:[address]-46) Hives Drug Aller gy Active rispererdol dizzy Non Drug Allergy Active tramadol Ultram(NDC Code:[address]-44) Hives Drug Allergy Active amitriptyline Amitriptyline HCl(NDC Code:[address]-24) Hives Dr ug Allergy Active gabapentin Gabapentin(NDC Code:[address]-48) Hives Drug Allergy Active ENCOUNTERS from 1980 to 2020-04-08 Encounter Location Date Provider Diagnosis [facility] [address] [place] [id number] Mar, Radha Restrepo 35 weeks gestation o f Z3A.35 ; Maternal care due to low transverse uterine scar from previous delivery O34.211 ; Body mass index (BMI) 40.0-44.9, adult Z68.41 ; Obesity complicating p regnancy in third trimester O99.213 ; Headache R51.9 and Gestational hypertension, third trimester O13.3 IMMUNIZATIONS No Information SOCIAL HISTORY Tobacco Use: Social History Observation Description Date Details (start date - stop date) Former Smoker Sex Assigned At : Social History Observation Description Sex Assigned At Unknown Tobacco Use: Question Answer Notes Are you a: former smoker REASON FOR REFERRAL No Information VITAL SIGNS Weight 297.6 lbs Mar, Height 66 in Mar, BMI 48.034 kg/m2 Mar, Blood pressure systolic 132 mm Hg Mar, Blood pressure diastolic 90 mm Hg Mar, MEDICATIONS Medication SIG (Take, Route, Frequency, Duration) Notes Start Da te End Date Status Sumatriptan Succinate 100 MG 1 tablet at least 2 hours between doses as needed Orally every 6 hours as needed for migraine for 2 days Apr, 2 021 Active PROCEDURES from 1980 to 2020-04-08 Procedure Date Ordered Result Body Site non-stress test 2020-03-31 N/A RESULTS Component Value Reference Range CBC - Complete Blood Count Reviewed date:03/31/2020 15:16:18 Interpretation: Performing Lab:[facility] [address] [facility] [address] [address] , ,[place] [address] WHITE BLOOD COUNT 12.1 4.0-10.0 RED BLOOD COUNT 4.28 4.00-5.40 HEMOGLOBIN 13.2 12.0-15.5 HEMATOCRIT 39.0 36.0-47.0 MEAN CORPUSCULAR VOLUME 91.1 80.0-96.0 MEAN CORPUSCULAR HEMOGLOBIN 30.8 27.0-33.0 MEAN CORPUSCULAR HGB CONC 33.8 32.0-36.5 RED CELL DISTRIBUTION WIDTH 13.8 11.5-14.5 PLATELET COUNT, AUTOMATED 197 150-450 Comprehensive Metabolic Profile (CMP) Reviewed date:03/31/2020 15:15:51 Interpretation: Performing Lab:[facility] [address] [facility] [address] [address] , ,[place] [address] GLUCOSE, FASTING 116 70-100 BLOOD UREA NITROGEN 9 7-18 CREATININE FOR GFR 0.67 0.55-1.30 GLOMERULAR FILTRATION RATE > 60.0 >60 SODIUM LEVEL 138 136-145 POTASSIUM SERUM 4.4 3.5-5.1 CHLORIDE LEVEL 103 98-107 CARBON DIOXIDE LEVEL 29 21-32 CALCIUM LEVEL 9.1 8.5-10.1 AST/SGOT 6 7-37 ALT/SGPT 13 12-78 ALKALINE PHOSPHATASE 122 45-117 BILIRUBIN,TOTAL 0.2 0.2-1.0 TOTAL PROTEIN 6.4 6.4-8.2 ALBUMIN 2.4 3.2-5.2 ALBUMIN/GLOBULIN RATIO 0.6 1.2-2.2 CREATININE,RANDOM URINE Reviewed date:03/31/2020 16:33:22 Interpretation: Performing Lab:[facility] [address] [place] [address] , ,[place] [address] CREATININE,RANDOM URINE 92.4 TOTAL PROTEIN,RANDOM URINE Reviewed date:03/31/2020 16:33:30 Interpretation: Performing Lab:[facility] [address] [place] [address] , ,[place] [address] TOTAL PROTEIN,RANDOM URINE 12.9 0.0-12.0 REASON FOR VISIT 1WK PN & NST [...] brain/ear tubes 1981 Surgical History laparscopic exploratory 2014 Surgical History Hospitalization History mental health admissions last in 201 5 Goals Section No Information Health Concerns No Information MEDICAL EQUIPMENT No Information MENTAL STATUS No Information FUNCTIONAL STATUS No Information ASSESSMENTS Encounter Date Diagnosis Assessment Notes Treatment Notes Treatm ent Clinical Notes Mar, 35 weeks gestation of (ICD-10 - Z3A.35 ) Mar, Maternal care due to low tra nsverse uterine scar from previous delivery (ICD-10 - O34.211) Mar, Body mass index (BMI) 40.0-44.9, adult (ICD-10 - Z68.41) Mar, Obesity complicating pregnan cy in third trimester (ICD-10 - O99.213) Mar, Headache (ICD-10 - R51.9) Mar, Gestational hypertension, third trimester (ICD-1 0 - O13.3) PLAN OF TREATMENT Medication Medication Name Sig Start Date Stop Date Sumatriptan Succinate 100 MG 1 tablet at least 2 hours between doses as needed Orally every 6 hours as needed for migraine for 2 days Apr, Next Appt Details 1 Week Reason:COB Provider Name:Amy Arriaga, 2020-05-01 0 9:00:00 AM, [facility] [place], [address], Provider Name:Amy Arriaga, 2020-06-13 1 1:40:00 AM, [address] [place] [address], [phone], Follow Up:1 WeekCOB Insurance Providers Payer Name Payer Address Payer Phone Insured Name Patient Relati onship to Insured Coverage Start Date Coverage End Date [facility] [facility] [address] [facility] [phone] CHEN PETERS self
--- OUTSIDE RECORDS SUMMARY | 2020-04-23 17:12 | CCD ---
Author Author Leanna Michelle Organization Unknown Address [address] [address] Phone Care Team Providers Care Sand Temperer Name Role Phone Ericka Michelle PCP Allergies, Adverse Reactions, Alerts Concept Allergy Name Reaction Severity Onset Date Status Documentation Date Phone Number Npid Taxonomy Code Taxonomy Desc Author Last Name Author Ba rst Name Concept Type [id number] nkda Active 02/09/2018 RXNORM Problem List Concept [...] Name Taxonomy Code Taxonomy Desc Phone Number [phone] Prozac by mouth [id number] 04/27/2019 once a day 30 20 mg capsule [id number] Bridgette Tellez [id number] Nurse Practitioner [phone] Social History Social History Element Description Concept Effective Date Smoking Status Unknown if ever smoked [id number] Immunizations No Data in Section Vital Signs No Data in Section Procedures Date Concept Id Description Targeted Site Concept Targeted Site Concept Type 04/11/2020 92285 Extended Individual Psychotherapy - 45 min CPT Patient has no history of implantable de vices Encounters Encounter Start Date End Date Encounter Type Description Diagnosis Di agnosis Desc Location Author First Name Author Last Name Npid Taxonomy Cod e Taxonomy Desc Phone Number Location Addr1 Location Addr2 Location [facility] Location [facility] Location Zip [id number] 04/11/2020 04/11/2020 14028 Extended Individual Psych otherapy - 45 min F43.12 Post-traumatic stress disorder, chronic [facility] Miguel Angel Ericka [phone] [id number] Mental Health [phone] [address] [address] Plan of Treatment No Data in Section Lab Results No Data in Section Instructions No Data in Section Insurance Providers Insurance Id Policy Effective Date Policy Thru Date Company N elena [id number] [address]
--- OUTSIDE RECORDS SUMMARY | 2020-04-23 17:14 | CCD ---
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 Care Utilities Manager Name Role Phone Bryan COON MD Unavailable Unavailable Bryan COON MD Unavailable Unavailable Bryan COON MD Unavailable Unavailable Bryan COON MD Unavailable Unavailable Bryan COON MD Unavailable Unavailable Bryan COON MD Unavailable Unavailable Bryan COON MD Unavailable Unavailable Bryan COON MD Unavailable Unavailable Bryan COON MD Unavailable Unavailable Bryan COON MD Unavailable Unavailable JAYMIEBryan MD Unavailable Unavailable JAYMIEBryan MD Unavailable Unavailable JAYMIEBryan MD Unavailable Unavailable JAYMIEBryan MD Unavailable Unavailable JAYMIEBryan MD Unavailable Unavailable JAYMIEBryan MD Unavailable Unavailable JAYMIEBryan MD Unavailable Unavailable JAYMIEBryan MD Unavailable Unavailable JAYMIE F JOHN MANZO Unavailable Unavailable JAYMIEBryan MD Unavailable Unavailable JAYMIE F JOHN MANZO Unavailable Unavailable JAYMIEBryan MD Unavailable Unavailable JAYMIE F JOHN MANZO Unavailable Unavailable JAYMIE F JOHN MANZO Unavailable Unavailable JAYMIE F JOHN MANZO Unavailable Unavailable JAYMIEBryan MD Unavailable Unavailable JAYMIEBryan MD Unavailable Unavailable JAYMIEBryan MD Unavailable Unavailable NCF[facility], JLAM Unavailable Unavailable Mirtha Manley MD Unavailable Unavailable [...] Unavailable Unavailable Mirtha Manley MD Unavailable Unavailable Slezka, Vojtech MD Unavailable Unavailable Slezka Vojtech MD Unavailable Unavailable Slezka Vojtech MD Unavailable Unavailable Slezka Vojtech MD Unavailable Unavailable Slezka Vojtech MD Unavailable Unavailable Slezka Vojtech MD Unavailable Unavailable Slezka Vojtech MD Unavailable Unavailable Slezka, Vojtech MD Unavailable Unavailable Slezka, Vojtech MD Unavailable Unavailable Slezka Vojtech MD Unavailable Unavailable Slezka Vojtech MD Unavailable Unavailable Slezka Vojtech MD Unavailable Unavailable Slezka Vojtech MD Unavailable Unavailable Slezka, Vojtech MD Unavailable Unavailable Slezka, Vojtech MD Unavailable Unavailable Slezka, Vojtech MD Unavailable Unavailable Slezka, Vojtech MD Unavailable Unavailable Slezka Vojtech MD Unavailable Unavailable Slezka Vojtech MD Unavailable Unavailable Slezka Vojtech MD Unavailable Unavailable Slezka Vojtech MD Unavailable Unavailable Slezka Vojtech MD Unavailable Unavailable Slezka Vojtech MD Unavailable Unavailable Slezka Vojtech MD Unavailable Unavailable Slezka Vojtech MD Unavailable Unavailable Slezka, Vojtech MD Unavailable Unavailable Slezka Vojtech MD Unavailable Unavailable Slezka Vojtech MD Unavailable Unavailable CAITLIN CAMARGO MD Unavailable [...] Unavailable Unavailable CAITLIN CAMARGO MD Unavailable Unavailable CAMARGO, CAITLIN MD Unavailable Unavailable CAMARGO CAITLIN MD Unavailable Unavailable CAMARGO, CAITLIN MD Unavailable Unavailable CAMARGO, CAITLIN MD Unavailable Unavailable CAMARGO CAITLIN MD Unavailable Unavailable CAMARGO CAITLIN MD Unavailable Unavailable CAMARGO, CAITLIN MD Unavailable Unavailable CAMARGO CAITLIN MD Unavailable Unavailable CAMARGO, CAITLIN MD Unavailable Unavailable CAMARGO, CAITLIN MD Unavailable Unavailable CAMARGO CAITLIN MD Unavailable Unavailable CAMARGO, CAITLIN MD Unavailable Unavailable CAMARGO CAITLIN MD Unavailable Unavailable CAMARGO CAITLIN MD Unavailable Unavailable CAMARGO CAITLIN MD Unavailable Unavailable CMAARGO CAITLIN MD Unavailable Unavailable CAMARGO, CAITLIN MD Unavailable Unavailable CAMARGO CAITLIN MD Unavailable Unavailable CAMARGO CAITLIN MD Unavailable Unavailable CAMARGO, CAITLIN MD Unavailable Unavailable CAMARGO CAITLIN MD Unavailable Unavailable CAMARGO, CAITLIN MD Unavailable Unavailable CAMARGO CAITLIN MD Unavailable Unavailable CAMARGO CAITLIN MD Unavailable Unavailable CAMARGO, CAITLIN MD Unavailable Unavailable CAMARGO, CAITLIN MD Unavailable Unavailable CAMARGO, CAITLIN MD Unavailable Unavailable CAMARGOCAITLIN MD Unavailable Unavailable CAMARGOCAITLIN MD Unavailable Unavailable CAMARGO CAITLIN MD Unavailable Unavailable CAMARGOCAITLIN MD Unavailable Unavailable CAMARGO, CAITLIN MD Unavailable Unavailable CAMARGO, CAITLIN MD Unavailable Unavailable CAMARGO, CAITLIN MD Unavailable Unavailable CAMARGO, CAITLIN MD Unavailable Unavailable CAMARGOCAITLIN MD Unavailable Unavailable CAMARGO, CAITLIN MD Unavailable Unavailable CAMARGO, CAITLIN MD Unavailable Unavailable CAMARGO, CAITLIN MD Unavailable Unavailable CAMARGO, CAITLIN MD Unavailable Unavailable CAMARGO, CAITLIN MD Unavailable Unavailable Tabitha, J Manohar PA-C Unavailable Unavailable Tabitha, J Manohar PA-C Unavailable Unavailable Tabitha, J Manohar PA-C Unavailable Unavailable Tabitha, J Manohar PA-C Unavailable Unavailable Tabitha, J Manohar PA-C Unavailable Unavailable Tabitha, J Maonhar PA-C Unavailable Unavailable Tabitha, J Manohar PA-C Unavailable Unavailable Tabitha, J Manohar PA-C Unavailable Unavailable Tabitha, J Manohar PA-C Unavailable Unavailable Tabitha, J Manohar PA-C Unavailable Unavailable Tabitha, J Manohar PA-C Unavailable Unavailable JOVANNI, H EZEQUIEL HOOP MAKER MACHINE Unavailable Unavailable JOVANNI, H EZEQUIEL HOOP MAKER MACHINE Unavailable Unavailable JOVANNI, H EZEQUIEL HOOP MAKER MACHINE Unavailable Unavailable JOVANNI, H EZEQUIEL HOOP MAKER MACHINE Unavailable Unavailable JOVANNI, H EZEQUIEL HOOP MAKER MACHINE Unavailable Unavailable JOVANNI, H EZEQUIEL HOOP MAKER MACHINE Unavailable Unavailable JOVANNI, H EZEQUIEL HOOP MAKER MACHINE Unavailable Unavailable JOVANNI, H EZEQUIEL HOOP MAKER MACHINE Unavailable Unavailable KIM RIVERA MD Unavailable Unavailable KIM RIVERA MD Unavailable Unavailable KIM RIVERA MD Unavailable Unavailable KIM RIEVRA MD Unavailable Unavailable KIM RIVERA MD Unavailable [...] Unavailable KIM RIVERA MD Unavailable Unavailable KIM RIEVRA MD Unavailable Unavailable KIM RIVERA MD Unavailable [...] Unavailable Unavailable KIM RIVERA MD Unavailable Unavailable IKM RIVERA MD Unavailable Unavailable KIM RIVERA MD [...] Unavailable Unavailable KIM RIVERA MD Unavailable Unavailable CAITLIN CAMARGO MD Unavailable [...] Unavailable Unavailable CAITLIN CAMARGO MD Unavailable Unavailable CAMARGO, CAITLIN MD Unavailable [...] Unavailable Unavailable CAMARGO, CAITLIN MD Unavailable Unavailable Tomaiuoli GEORGIE Lilo ANP-C Unavailable [phone] Tomaiuoashvin GEORGIE Lilo ANP-C Unavailable [phone] Tomaiuoashvin GEORGIE Lilo ANP-C Unavailable [phone] Tomaiuoashvin GEORGIE Lilo ANP-C Unavailable [phone] Tomaiuoli, [...] Diegouoli, GEORGIE Lilo ANP-C Unavailable [phone] Diegouoli GEORGIE Lilo ANP-C Unavailable [phone] Tomaiuoli, GEORGIE Lilo ANP-C Unavailable [phone] Tomaiuoli, GEORGIE Lilo ANP-C Unavailable [phone] Diegouoashvin, GEORGIE Lilo ANP-C Unavailable [phone] Diegouoli, GEORGIE Lilo ANP-C Unavailable [phone] Charanjitaiuoashvin, GEORGIE Lilo ANP-C Unavailable [phone] Diegouoli, GEORGIE Lilo ANP-C Unavailable [phone] Tomaiuoli, GEORGIE Lilo ANP-C Unavailable [phone] Tomaiuoli, GEORGIE Lilo ANP-C Unavailable [phone] Charanjitaiuoli, GEORGIE Lilo ANP-C Unavailable [phone] Tomaiuoli, GEORGIE Lilo ANP-C Unavailable [phone] Tomaiuoli, GEORGIE Lilo ANP-C Unavailable [phone] Tomaiuoli GEORGIE Lilo ANP-C Unavailable [phone] GEORGIE Jordan Lilo ANP-C Unavailable [phone] GEORGIE Jordan Lilo ANP-C Unavailable [phone] GEORGIE Jordan Lilo ANP-C Unavailable [phone] GEORGIE Jordan Lilo ANP-C Unavailable [phone] GEORGIE Jordan Lilo ANP-C Unavailable [phone] GEORGIE Jordan Lilo ANP-C Unavailable [phone] GEORGIE Jordan Lilo ANP-C Unavailable [phone] GEORGIE Jordan Lilo ANP-C Unavailable [phone] GEORGIE Jordan Lilo ANP-C Unavailable [phone] GEORGIE Jordan Lilo ANP-C Unavailable [phone] GEORGIE Jordan Lilo ANP-C Unavailable [phone] Kunnumpurath, F Reina MD Unavailable Unavailable Kunnumpurath, [...] Unavailable Kunnumpurath, F Reina MD Unavailable Unavailable SYSTEM IN, NOT IN PROVIDER Unavailable Unavailable Miguel Angel, Ericka Unavailable Dean Talbert MD Unavailable Unavailable Dean [...] Unavailable Unavailable Dean Talbert MD Unavailable Unavailable Talbert, Dean MD Unavailable Unavailable Talbert, Dean MD Unavailable Unavailable Talbert, Dean MD Unavailable Unavailable Talbert, Dean MD Unavailable Unavailable Talbert, Dean MD Unavailable Unavailable Talbert, Dean MD Unavailable Unavailable Talbert, Dean MD Unavailable Unavailable Talbert, Dean MD Unavailable Unavailable Talbert, Dean MD Unavailable Unavailable Talbert, Dean MD Unavailable Unavailable Talbert, Dean MD Unavailable Unavailable Talbert, Dean MD Unavailable Unavailable Talbert, Dean MD Unavailable Unavailable Talbert, Dean MD Unavailable Unavailable Talbert, Dean MD Unavailable Unavailable Talbert, Dean MD Unavailable Unavailable Talbret, Dean MD Unavailable Unavailable Talbert, Dean MD Unavailable Unavailable Talbert, Dean MD Unavailable Unavailable Talbert, Dean MD Unavailable Unavailable Talbert, Dean MD Unavailable Unavailable Talbert, Dean MD Unavailable Unavailable Talbert, Dean MD Unavailable Unavailable Re-disclosure Warning The records that [...] is protected by Article 27-F of the [facility] Public Health law. If you continue you may have access to information: Regarding HIV / AIDS; Provided by facilities licensed or operated by the [facility] Office of Mental Health; or Provided by the [facility] Office for People With Developmental Disabilities. If such information is present, then the following [facility] mandated warning applies: This information has been [...] law may result in a fine or chcf sentence or both. A general authorization for the release of medical or other information is NOT sufficient authorization for further disc losure. Allergies and Adverse Reactions Type Description Substance Reaction Status Data Source(s ) Propensity to adverse reactions to substance nkda 24 HR Bupropion Hydrochloride 150 MG Extended Release Oral Tablet Active [facility] ([facility]) BRANDNAME ULTRAM ULTRAM HIVES [facility] BRANDNAME NEURONTIN [facility] Food allergy SEAFOOD SEAFOOD [facility]LLEN [facility] Drug allergy ATENOLOL ATENOLOL [facility] Drug allergy AMITRIPTYLINE AMITRIPTYLINE ANAPHYLAXIS VOMITING [facility] Drug allergy NORTRIPTYLINE [facility]IPTYLINE [facility] Drug allergy Gabapentin gabapentin Hives Active eCW1 ([facility]) Drug allergy Amitriptyline HCl Amitriptyline Hives Active eC W1 ([facility]) Drug allergy Risperidone Risperidone Hives Active eCW1 ([facility]) Drug allergy Nortriptyline HCl Nortriptyline Hives Active eC W1 ([facility]) Drug allergy Ziprasidone HCl ziprasidone Hives Active eCW1 ( [facility]) Drug allergy atenolol 100 Drug allergy Hives Active eCW1 ([facility]) Drug allergy Tramadol HCl Tramadol Hives Active eCW1 ([facility]) Ultram Ultram tramadol hydrochloride 50 MG Oral Tablet [Ultra m] Hives Active eCW1 ([facility]) Sea Food Sea Food Sea Food Anaphylaxis Active eCW1 ([facility]) Cyclobenzaprine HCl Cyclobenzaprine HCl Cyclobenzaprine HCl Hives Active eCW1 ([facility]) Flexeril Flexeril Flexeril Hives Active eCW1 ([facility]) rispererdol rispererdol rispererdol dizzy Active eCW1 ([facility]) Geodon Geodon ziprasidone 20 MG/ML Injectable Solution [Geodon] Paranoid Active eCW1 ([facility]) seafood, fish seafood, fish seafood, fish Angioedema Active eCW1 ([facility]) Family History Family Member Name Family Member Gender Family Member Status Date o f Status Description Data Source(s) Unknown Male Problem MEDENT ([facility]) Unknown Male Problem MEDENT ([facility], ) Encounters Encounter Providers Location Date Indications Data Source(s ) Extended Individual Psychotherapy - 45 min Attender: Ericka Mcguireus [facility] 04/11/2020 11:00:00 AM EST - 04/11/2020 11:00:00 AM EST [facility] ([facility]) Attender: Ericka Miguel Angel 04/11/2020 12:00:00 AM EST [facility] ([facility]) (WC COB) WCenter Complicated OB [address] [place] [address] 03/31/2020 12:00:00 AM EST eCW1 ([facility]) Extended Individual Psychotherapy - 45 min Attender: Ericka Michelle [facility] 03/24/2020 02:00:00 AM EST - 03/24/2020 02:00:00 AM EST [facility] ([facility]) Attender: Ericka Michelle 03/24/2020 12:00:00 AM EST [facility] ([facility]) ( ESTOB) WCenter Est OB [address] [place] [address] 03/23/2020 12:00:00 AM EST eCW1 ([facility]) Outpatient Attender: EZEQUIEL TELLEZ NP [facility] Eliezer lenz 03/21/2020 11:00:00 AM EST - 03/21/2020 11:00:00 AM EST [facility] ([facility]) Unknown [address] [facility] [place] [address] 03/21/2020 12:00:00 AM EST eCW1 ([facility]) Attender: EZEQUIEL TELLEZ NP 03/21/2020 12:00:00 AM EST [facility] ([facility]) Extended Individual Psychotherapy - 45 min Attender: Ericka Mcguireus [facility] 03/17/2020 11:00:00 AM EST - 03/17/2020 11:00:00 AM EST [facility] Attender: Ericka Miguel Angel 03/17/2020 12:00:00 AM EST [facility] ([facility]) (WC ESTOB) WCenter Est OB [address] [place] [address] 03/16/2020 12:00:00 AM EST eCW1 ([facility]) Unknown [address] [facility] [address] 03/10/2020 12:00:00 AM EST eCW1 ([facility]) (WC ESTOB) WCenter Est OB [address] [place] [address] 03/08/2020 12:00:00 AM EST eCW1 ([facility]) Extended Individual Psychotherapy - 45 min Attender: Ericka Miguel Angel [facility] 03/06/2020 01:00:00 AM EST - 03/06/2020 01:00:00 AM EST [facility] Attender: Ericka Michelle 03/06/2020 12:00:00 AM EST [facility] ([facility]) Outpatient Referrer: PROVIDER SYSTEM IN 03/02/2020 1 0:20:00 AM EST shingles with occular involvement [facility] shingles with occular involvement Unknown [address] [facility] [address] 02/28/2020 12:00:00 AM EST eCW1 ([facility]) (WC [place]) enter Nurse Visit [address] [place] [address] 02/28/2020 12:00:00 AM EST eCW1 ([facility]) (WC ESTOB) WCenter Est OB [address] [place] [address] 02/21/2020 12:00:00 AM EST eCW1 ([facility]) Extended Individual Psychotherapy - 45 min Attender: Ericka Michelle [facility] 02/11/2020 10:00:00 AM EST - 02/11/2020 10:00:00 AM EST [facility] ([facility]) Attender: Ericka Michelle 02/11/2020 12:00:00 AM EST [facility] ([facility]) Outpatient Attender: EZEQUIEL TELLEZ NP [facility] lenz 01/25/2020 10:00:00 AM EST - 01/25/2020 10:00:00 AM EST [facility] ([facility]) Extended Individual Psychotherapy - 45 min Attender: Ericka Miguel Angel [facility] 01/25/2020 09:00:00 AM EST - 01/25/2020 09:00:00 AM EST [facility] ([facility]) Attender: EZEQUIEL TELLEZ NP 01/25/2020 12:00:00 AM EST [facility] ([facility]) Attender: Ericka Michelle 01/25/2020 12:00:00 AM EST [facility] ([facility]) ( ESTOB) WCenter Est OB [address] [place] [address] 01/24/2020 12:00:00 AM EST eCW1 ([facility]) Unknown [address] [facility] [address] 01/21/2020 12:00:00 AM EST eCW1 ([facility]) Extended Individual Psychotherapy - 45 min Attender: Ericka Michelle [facility] 01/10/2020 10:00:00 AM EST - 01/10/2020 10:00:00 AM EST [facility] ([facility]) Attender: Ericka Michelle 01/10/2020 12:00:00 AM EST [facility] ([facility]) ( ESTOB) WCenter Est OB [address] [place] [address] 01/07/2020 12:00:00 AM EST eCW1 ([facility]) Outpatient Attender: EZEQUIEL TELLEZ NP [facility] lenz 12/30/2019 10:30:00 AM EDT - 12/30/2019 10:30:00 AM EDT [facility] ([facility]) Attender: EZEQUIEL TELLEZ NP 12/30/2019 12:00:00 AM EDT [facility] ([facility]) Brief Individual Psychotherapy - 30 min Attender: Ericka smith [facility] 12/16/2019 11:00:00 AM EDT - 12/16/2019 11:00:00 AM EDT [facility] ([facility]) Attender: Ericka Michelle 12/16/2019 12:00:00 AM EDT [facility] ([facility]) ( ESTOB) enter Est OB [address] [place] [address] 12/08/2019 12:00:00 AM EDT eCW1 ([facility]) Outpatient Attender: EZEQUIEL TELLEZ NP [facility] 12/02/2019 11:15:00 AM EDT - 12/02/2019 11:15:00 AM EDT [facility] ([facility]) Attender: EZEQUIEL TELLEZ NP 12/02/2019 12:00:00 AM EDT [facility] ([facility]) Extended Individual Psychotherapy - 45 min Attender: Ericka Mcguireus [facility] 11/30/2019 11:00:00 AM EDT - 11/30/2019 11:00:00 AM EDT [facility] ([facility]) Attender: Ericka Michelle 11/30/2019 12:00:00 AM EDT [facility] ([facility]) Outpatient Attender: Mirtha Manley MDReferrer: CAITLIN Lenz MD [email or web address] 11/11/2019 12:00:00 AM EDT [facility] Extended Individual Psychotherapy - 45 min Attender: Ericka Miguel Angel [facility] 11/09/2019 11:00:00 AM EDT - 11/09/2019 11:00:00 AM EDT [facility] ([facility]) Attender: Ericka Michelle 11/09/2019 12:00:00 AM EDT [facility] ([facility]) Outpatient Attender: EZEQUIEL TELLEZ NP [facility] delfin 11/04/2019 09:30:00 AM EDT - 11/04/2019 09:30:00 AM EDT [facility] ([facility]) Attender: EZEQUIEL TELLEZ NP 11/04/2019 12:00:00 AM EDT [facility] ([facility]) [id number]" Psychotherapy Attender: Ericka Michelle [facility] 09/02/2019 10:00:00 AM EDT - 09/02/2019 10:00:00 AM EDT [facility] ([facility]) Attender: Ericka Michelle 09/02/2019 12:00:00 AM EDT [facility] ([facility]) [id number]"Psychotherapy Attender: Ericka Miguel Angel [facility] 08/20/2019 09:00:00 AM EDT - 08/20/2019 09:00:00 AM EDT [facility] ([facility]) Attender: Ericka Michelle 08/20/2019 12:00:00 AM EDT [facility] ([facility]) Outpatient Attender: EZEQUIEL TELLEZ NP [facility] 08/17/2019 01:00:00 AM EDT - 08/17/2019 01:00:00 AM EDT [facility] ([facility]) Attender: EZEQUIEL TELLEZ NP 08/17/2019 12:00:00 AM EDT [facility] ([facility]) [id number]"Psychotherapy Attender: Ericka [facility] 08/06/2019 08:00:00 AM EDT - 08/06/2019 08:00:00 AM EDT [facility] ([facility]) Attender: Ericka Michelle 08/06/2019 12:00:00 AM EDT [facility] ([facility]) Outpatient Attender: WIL MOULTON KARSTEN 08/04/2019 11:00:02 AM EDT [facility] Outpatient Attender: CAITLIN CAMARGO MDConsultant: CAITLIN Lenz MD 07/29/2019 04:25:00 PM EDT - 07/29/2019 04:25:00 [facility] 09:00:00 AM EDT - 07/23/2019 09:00:00 AM EDT [facility] ([facility]) Attender: Ericka Mcguireus 07/23/2019 12:00:00 AM EDT [facility] ([facility]) Outpatient Attender: CAITLIN CAMARGO MDConsultant: CAITLIN Lenz MD 07/21/2019 02:00:00 PM EDT - 07/21/2019 02:00:00 PM EDT [facility] Outpatient Attender: EZEQUIEL TELLEZ NP [facility] 07/20/2019 09:30:00 AM EDT - 07/20/2019 09:30:00 AM EDT [facility] ([facility]) Attender: EZEQUIEL TELLEZ NP 07/20/2019 12:00:00 AM EDT [facility] ([facility]) Outpatient Attender: Dean Talbert MD [facility] 07/14/2019 12:00:00 PM EDT [facility] ([facility]) Outpatient Attender: CAITLIN CAMARGO MDConsultant: CAITLIN Lenz MD 07/06/2019 02:37:00 PM EDT - 07/06/2019 02:37:00 PM EDT [facility] Outpatient Referrer: JOHN COON MD 07/06/2019 04:48:00 AM EDT [facility] [id number]"Psychotherapy Attender: Ericka Michelle [facility] 07/06/2019 03:30:00 AM EDT - 07/06/2019 03:30:00 AM EDT [facility] ([facility]) Attender: Ericka Michelle 07/06/2019 12:00:00 AM EDT [facility] ([facility]) [id number]"Psychotherapy Attender: Ericka Michelle [facility] 06/24/2019 10:00:00 AM EDT - 06/24/2019 10:00:00 AM EDT [facility] ([facility]) Attender: Erickamiller Mcguireus 06/24/2019 12:00:00 AM EDT [facility] ([facility]) Outpatient Attender: CAITLIN CAMARGO MDConsultant: CAITLIN Lenz MD 06/23/2019 01:18:00 PM EDT - 06/23/2019 01:18:00 PM EDT [facility] Outpatient Attender: [facility] 06/22/2019 08:17:00 AM EDT [facility] Outpatient Attender: EZEQUIEL TELLEZ NP [facility]zer lenz 06/14/2019 01:00:00 AM EDT - 06/14/2019 01:00:00 AM EDT [facility] ([facility]) Attender: EZEQUIEL TELLEZ NP 06/14/2019 12:00:00 AM EDT [facility] ([facility]) Attender: Ericka Miguel Angel 06/14/2019 12:00:00 AM EDT [facility] ([facility]) [id number]"Psychotherapy Attender: Ericka Michelle [facility] 06/10/2019 09:00:00 AM EDT - 06/10/2019 09:00:00 AM EDT [facility] ([facility]) [id number]"Psychotherapy Attender: Ericka Michelle [facility] 05/27/2019 11:00:00 AM EDT - 05/27/2019 11:00:00 AM EDT [facility] ([facility]) Attender: Ericka Miguel Angel 05/27/2019 12:00:00 AM EDT [facility] ([facility]) Outpatient Attender: Reina Wilson MDConsultant: CAITLIN CAMARGO MD 05/26/2019 12:40:00 PM EDT - 05/26/2019 12:40:00 PM EDT [facility] [id number]"Psychotherapy Attender: EZEQUIEL TELLEZ NP [facility] 05/24/2019 10:30:00 AM EDT - 05/24/2019 10:30:00 AM EDT [facility] ([facility]) Attender: EZEQUIEL TELLEZ NP 05/24/2019 12:00:00 AM EDT [facility] ([facility]) Outpatient Attender: [facility] 05/18/2019 08:19:01 AM EDT [facility] Outpatient Attender: [facility] 05/12/2019 10:23:01 AM EDT [facility] Extended Individual Psychotherapy - 45 min Attender: Ericka Miguel Angel [facility] 05/12/2019 01:45:00 AM EDT - 05/12/2019 01:45:00 AM EDT [facility] ([facility] [facility]) Attender: Ericka Michelle 05/12/2019 12:00:00 AM EDT [facility] ([facility]) Extended Individual Psychotherapy - 45 min Attender: Ericka Miguel Angel [facility] 04/27/2019 11:45:00 AM EST - 04/27/2019 11:45:00 AM EST [facility] ([facility]) Outpatient Attender: EZEQUIEL TELLEZ NP [facility] Eliezer delfin 04/27/2019 01:00:00 AM EST - 04/27/2019 01:00:00 AM EST [facility] (The [facility]) Attender: EZEQUIEL TELLEZ NP 04/27/2019 12:00:00 AM EST [facility] ([facility]) Attender: Ericka Michelle 04/27/2019 12:00:00 AM EST [facility] ([facility]) Outpatient Attender: Ericka Michelle [facility] 10:00:00 AM EST - 04/23/2019 10:00:00 AM EST [facility] ([facility]) Attender: Ericka Michelle 04/23/2019 12:00:00 AM EST [facility] ([facility]) Outpatient Attender: EZEQUIEL TELLEZ HOOP MAKER MACHINE [facility] Eliezer lenz 04/14/2019 10:30:00 AM EST - 04/14/2019 10:30:00 AM EST [facility] (The [facility]) Attender: EZEQUIEL TELLEZ NP 04/14/2019 12:00:00 AM EST [facility] ([facility]) Outpatient Attender: BERNARDO RIVERA MDReferrer: CAITLIN CAMARGO MD 04/12/2019 12:00:00 AM [facility] [address] [place] [id number] 04/06/2019 12:00:00 AM EST eCW1 ([facility]) Extended Individual Psychotherapy - 45 min Attender: Erickamiller Michelle [facility] Zachary 03/30/2019 11:00:00 AM EST - 03/30/2019 11:00:00 AM EST [facility] ([facility]) Attender: Ericka Michelle 03/30/2019 12:00:00 AM EST [facility] ([facility]) Outpatient Referrer: JOHN COON MD 03/26/2019 03:17:00 PM [facility] Emergency Attender: Manohar Lu PA-CConsultant: CAITLIN VAZQUEZ MD 03/24/2019 04:07:00 PM EST - 03/24/2019 05:41:00 PM [facility] Patient discharged. Outpatient Attender: CAITLIN CAMARGO MDConsultant: CAITLIN Lenz MD 03/24/2019 03:10:00 PM EST - 03/24/2019 03:10:00 PM [facility] Outpatient Attender: CAITLIN CAMARGO MD Family Practice 03/24/2019 0 2:00:00 PM EST [facility] ([facility]) Outpatient Attender: Lilo Jordan ANP-CReferrer: CRISTIAN CAMARGO MD 03/24/2019 12:00:00 AM [facility] Outpatient Attender: CAITLIN CAMARGO MDConsultant: CAITLIN Lenz MD 03/17/2019 09:53:00 AM EST - 03/17/2019 09:53:00 AM [facility] Outpatient Attender: CAITLIN CAMARGO MD Family Practice 03/17/2019 0 9:00:00 AM EST [facility] ([facility]) Extended Individual Psychotherapy - 45 min Attender: Ericka Michelle [facility] 03/16/2019 03:00:00 AM EST - 03/16/2019 03:00:00 AM EST [facility] ([facility]) Attender: Ericka Michelle 03/16/2019 12:00:00 AM EST [facility] ([facility]) Outpatient Attender: EZEQUIEL TELLEZ NP [facility]zer l 03/10/2019 11:30:00 AM EST - 03/10/2019 11:30:00 AM EST [facility] (The [facility]) Attender: EZEQUIEL TELLEZ NP 03/10/2019 12:00:00 AM EST [facility] ([facility]) Outpatient Referrer: JOHN COON MD 03/07/2019 04:11:00 PM EST [facility] Extended Individual Psychotherapy - 45 min Attender: Ericka Michelle [facility] 02/26/2019 02:00:00 AM EST - 02/26/2019 02:00:00 AM EST [facility] ([facility]) Attender: Ericka Michelle 02/26/2019 12:00:00 AM EST [facility] ([facility]) Outpatient Attender: CAITLIN CAMARGO MDConsultant: CAITLIN Lenz MD 02/22/2019 01:11:00 PM EST - 02/22/2019 01:11:00 PM [facility] Outpatient Attender: CAITLIN CAMARGO MDConsultant: CAITLIN Lenz MD 02/15/2019 01:00:00 PM EST - 02/15/2019 01:00:00 PM [facility] Functional Status Medications Medication Brand Name Start Date Product Form Dose Route Admi nistrative Instructions Pharmacy Instructions Status Indications Reaction Description Data Source(s) Sumatriptan 100 MG Oral Tablet Sumatriptan Succinate 1 00 MG Sumatriptan Succinate 100 MG 04/04/2020 12:00:00 AM EST a ctive Sumatriptan Succinate 100 MG eCW1 ([facility]) Metronidazole 500 MG Oral Tablet Metronidazole 500 MG 2020 12:00:00 AM EST 1.0 {tablet} active Metronidazo le 500 MG eCW1 ([facility]) Metronidazole 500 MG Oral Tablet Metronidazole 500 MG 2020 12:00:00 AM EST 1.0 {tablet} active Metronidazo le 500 MG eCW1 ([facility]) Metronidazole 500 MG Oral Tablet Metronidazole 500 MG 2020 12:00:00 AM EST 1.0 {tablet} suspended Metronid azole 500 MG eCW1 ([facility]) Metronidazole 500 MG Oral Tablet Metronidazole 500 MG 2020 12:00:00 AM EST 1.0 {tablet} active Metronidazo le 500 MG eCW1 ([facility]) Metronidazole 500 MG Oral Tablet Metronidazole 500 MG 2020 12:00:00 AM EST 1.0 {tablet} suspended Metronid azole 500 MG eCW1 ([facility]) Acetaminophen 325 MG / butalbital 50 MG / Caffeine 40 MG Oral Capsule [Esgic] Esgic 50-325-40 MG Esgic 50-325-40 MG 02/28/2020 12:00:00 AM EST active Esgic 50-325-40 MG eCW1 ([facility]) Acetaminophen 325 MG / butalbital 50 MG / Caffeine 40 MG Oral Capsule [Esgic] Esgic 50-325-40 MG Esgic 50-325-40 MG 02/28/2020 12:00:00 AM EST active E[facility]ic 50-325-40 MG eCW1 ([facility]) Acetaminophen 325 MG / butalbital 50 MG / Caffeine 40 MG Oral Capsule [Esgic] Esgic 50-325-40 MG Esgic 50-325-40 MG 02/28/2020 12:00:00 AM EST active [facility] 50-325-40 MG eCW1 ([facility]) Acetaminophen 325 MG / butalbital 50 MG / Caffeine 40 MG Oral Capsule [Esgic] Esgic 50-325-40 MG Esgic 50-325-40 MG 02/28/2020 12:00:00 AM EST active [facility] 50-325-40 MG eCW1 ([facility]) Acetaminophen 325 MG / butalbital 50 MG / Caffeine 40 MG Oral Capsule [Esgic] Esgic 50-325-40 MG Esgic 50-325-40 MG 02/28/2020 12:00:00 AM EST active [facility] 50-325-40 MG eCW1 ([facility]) Acetaminophen 325 MG / butalbital 50 MG / Caffeine 40 MG Oral Capsule [Esgic] Esgic 50-325-40 MG Esgic 50-325-40 MG 02/28/2020 12:00:00 AM EST active [facility] 50-325-40 MG eCW1 ([facility]) Acetaminophen 325 MG / butalbital 50 MG / Caffeine 40 MG Oral Capsule [Esgic] Esgic 50-325-40 MG Esgic 50-325-40 MG 02/28/2020 12:00:00 AM EST active [facility] 50-325-40 MG eCW1 ([facility]) lamotrigine 25 MG Oral Tablet lamotrigine 07/20/2019 12:00:00 AM EDT 25 mg by mouth completed [id number] lamotrigine by mouth [id number] 07/1908/19/2019 once a day 30 25 mg tablet 49879 [id number] Lela shay Tellez [id number] Nurse Practitioner [facility]) Sumatriptan 100 MG Oral Tablet Sumatriptan Succinate 07/14/2019 12:00:00 AM EDT active [facility] ( [facility]) Aimovig Aimovig 07/14/2019 12:00:00 AM EDT SUBCUTANEOUS active [facility] ([facility]) valacyclovir 1000 MG Oral Tablet Valacyclovir HCL 05/26/2019 12:00: 00 AM EDT ORAL completed [facility] ([facility]) Cholecalciferol 1000 UNT Oral Tablet Vitamin D 05/26/2019 12:00:00 A M EDT ORAL active [facility] ([facility]) Fluoxetine 20 MG Oral Capsule [Prozac] Prozac 04/27/2019 12:0 0:00 AM EST 20 mg by mouth completed [id number] Prozac by mouth [id number] 2019 once a day 30 20 mg capsule 66082 536075 [id number] Ezequiel Tellez [id number] Nurse Practitioner [facility] ([facility]) Divalproex Sodium 125 MG Delayed Release Oral Capsule [Depakote] Depakote Sprinkles 04/27/2019 12:00:00 AM EST 125 mg by mouth comple juliana [id number] Depakote Sprinkles by mouth [id number] 04/27/2019 05/27/2019 at bedtime 30 125 mg capsule, delayed rel sprinkle 41961 [id number] Ezequiel Tellez [id number] Nurse Practitioner [facility] (The [facility]) Fluoxetine 20 MG Oral Capsule [Prozac] Prozac 04/27/2019 12:0 0:00 AM EST 20 mg by mouth completed 607353 Prozac by mouth [id number] 0 04/27/2019 08/22/2019 once a day 30 20 mg capsule 57898 [id number] Shara Tellez [id number] Nurse Practitioner [facility] ([facility]) Fluoxetine 20 MG Oral Capsule [Prozac] Prozac 04/27/2019 12:0 0:00 AM EST 20 mg by mouth completed 845812 Prozac by mouth [id number] 0 04/27/2019 07/26/2019 once a day 30 20 mg capsule 25163 575077 [id number] Shara Tellez [id number] Nurse Practitioner [facility] ([facility]) Divalproex Sodium 125 MG Delayed Release Oral Capsule [Depakote] Depakote Sprinkles 04/27/2019 12:00:00 AM EST 125 mg by mouth comple juliana [id number] Depakote Sprinkles by mouth [id number] 04/27/2019 05/24/2019 at bedtime 30 125 mg capsule, delayed rel sprinkle 41242 523572 [id number] Ezequiel Tellez [id number] Nurse Practitioner [facility] ([facility]) Fluoxetine 10 MG Oral Capsule [Prozac] Prozac 04/14/2019 12:0 0:00 AM EST 10 mg by mouth completed 125742 Prozac by mouth [id number] 0 04/14/2019 07/13/2019 once a day 30 10 mg capsule 11763 247106 [id number] Lelamay Tellez [id number] Nurse Practitioner [facility] ([facility]) Prazosin 1 MG Oral Capsule prazosin 03/10/2019 12:00:00 AM EST 1 mg by mouth completed 715155 prazosin by mouth [id number] 03/10/201902/2020 at bedtime 30 1 mg capsule 65384 755659 [id number] Ezequiel Leone 3 [id number] Nurse Practitioner [facility] ([facility]) Ibuprofen 600 MG Oral Tablet Ibuprofen 02/23/2019 12:00:00 AM EST ORAL completed [facility] ([facility]) Acetaminophen 250 MG / Aspirin 250 MG / Caffeine 65 MG Oral Tablet [Excedrin] Excedrin Extra Strength 02/15/2019 12:00:00 AM EST completed [facility] ([facility]) Omeprazole 20 MG Delayed Release Oral Capsule Omeprazole 02/15/2019 12:00:00 AM EST ORAL completed [facility] ([facility]) Insurance Providers Payer name Policy type / Coverage type Policy ID Covered libertarian ID Covered libertarian's relationship to banda Policy Banda Plan Information COUNTS INCLUDE 234 BEDS AT THE [facility] [id number] SP [id number] [facility] O [id number] S [id number] COUNTS INCLUDE 234 BEDS AT THE [facility] COMMUNITY PLAN MCDO [id number] SP [id number] COUNTS INCLUDE 234 BEDS AT THE [facility] COMMUNITY PLAN MCDO [id number] SP [id number] [facility] I [id number] Self [id number] [facility] MEDICAID [id number] Paula [id number] Managed Care - [facility] Community Plan P [id number] S [id number] Medicaid S [id number] S [id number] [facility] COMMUNTY PLAN MC [id number] 18 [id number] COUNTS INCLUDE 234 BEDS AT THE [facility] COMMUNITY PLAN XIX [id number] 18 [id number] [facility] COMMUNITY PLAN [id number] 18 [id number] Managed Care - [facility] Community Plan P [id number] S [id number] COUNTS INCLUDE 234 BEDS AT THE [facility] AMERICHOICE XIX -HMO [id number] 18 [id number] COUNTS INCLUDE 234 BEDS AT THE [facility] COMMUNITY [facility] [id number] SP [id number] COUNTS INCLUDE 234 BEDS AT THE [facility] AMERICHOICE XIX -HMO [id number] 18 [id number] [facility] AMERICHOICE XIX -HMO [id number] 18 [id number] [facility] COMMUNITY PLAN XIX [id number] 18 [id number] [facility] COMMUNTY PLAN [id number] 18 [id number] MEDICAID M [id number] Self [id number] [facility] COMMUNITY PLAN MCDHMO [id number] SP [id number] [facility]) O [id number] S [id number] Managed Care - [facility] Community Plan P [id number] S [id number] [facility] Community Plan Commercial [id number] Self [id number] [facility] Communty Plan Medicaid [id number] Self [id number] [facility] I [id number] Self [id number] Managed Care - Community Plan [facility] P [id number] S [id number] Medicaid S [id number] S [id number] [facility] Community Plan Commercial [id number] Self [id number] [facility] Communty Plan Medicaid [id number] Self [id number] [facility] Community Plan Commercial [id number] Self [id number] [facility] Communty Plan Medicaid [id number] Self [id number] COUNTS INCLUDE 234 BEDS AT THE [facility] COMMUNITY PLAN MCDHMO [id number] SP [id number] [facility] Community Plan Commercial [id number] Self [id number] [facility] Communty Plan Medicaid [id number] Self [id number] [facility] Communty Plan Medicaid [id number] Self [id number] [facility] Community Plan Commercial [id number] Self [id number] [facility] Communty Plan Medicaid [id number] Self [id number] [facility] Community Plan Commercial [id number] Self [id number] COUNTS INCLUDE 234 BEDS AT THE [facility] COMMUNITY PLAN MCDHMO [id number] SP [id number] [facility] [id number] S [id number] UNAVAILABLE UNAVAILA BLE [facility] [id number] S [id number] [facility] Community Plan Commercial [id number] Self [id number] [facility] Communty Plan Medicaid [id number] Self [id number] UN COMMUNITY PLAN XIX [id number] 18 [id number] [facility] Communty Plan Medicaid [id number] Self [id number] [facility] Community Plan Commercial [id number] Self [id number] [employer] BCBS Medigap Part B [id number] Self [id number] [facility] Health Maintenance Organization (HMO) [id number] Self [id number] [facility] [place] [id number] 18 [id number] [facility] COMMUNITY PLAN MCDHMO [id number] SP [id number] [facility] [place] Plan Medigap Part B [id number] Self [id number] [facility] Community Plan Commercial [id number] Self [id number] [facility] EMPIRE PLAN HM [id number] 18 [id number] [facility] HM [id number] 18 [id number] [facility](MCAID) O [id number] S [id number] [facility] Clinic Medigap Part B [id number] Self [id number] [facility] - Commercial [id number] Self [id number] [facility] [place] [id number] 18 [id number] [facility] COMMUNITY PLAN MCDHMO [id number] SP [id number] [facility] Medigap Part B [id number] Self [id number] [facility] - Commercial [id number] Self [id number] [facility](MCAID) O [id number] S [id number] [facility] COMMUNITY PLAN MCDHMO [id number] SP [id number] [facility] AMERICHOICE XIX -HMO [id number] 18 [id number] [facility] COMMUNITY PLAN MCDHMO [id number] SP [id number] [facility] O [id number] S [id number] [facility] COMMUNITY PLAN MCDHMO [id number] SP [id number] [facility] COMMUNITY PLAN MCDHMO [id number] SP [id number] Medicaid S [id number] S [id number] Managed Care - Community Plan [facility] P [id number] S [id number] MEDICAID - CLINIC [id number] [facility] I [id number] Self [id number] [facility] AMERICHOICE HMO [id number] 18 [id number] MEDICAID-O/P [id number] [facility] Comm Plan Medicaid F [id number] SELF [id number] [facility] Commercial Self Medicaid S [id number] S [id number] Managed Care - Community Plan [facility] P [id number] S [id number] [facility] P UNAVAILABLE S UNAVAILA BLE Medicaid S [id number] S [id number] [employer] [place] PLAN [id number] SP [id number] [facility] [id number] Problems, Conditions, and Diagnoses Code Display Name Description Problem Type Effective Dates Data Source(s) F14.20 Cocaine dependence, uncomplicated Stimul ant Use Disorder. Severe: Cocaine Condition 04/11/2020 12:00:00 AM EST [facility] ([facility]) F41.1 Generalized anxiety disorder Generalized Anxiety Disor milena Condition 04/11/2020 12:00:00 AM EST [facility] ([facility]) F43.12 Post-traumatic stress disorder, chronic Post-traumatic stress disorder, chronic Condition 04/11/2020 12:00:00 AM EST [facility] ([facility]) Z68.41 Body mass index 40+ - severely obese Bod y mass index (BMI) 40.0-44.9, adult Problem 03/31/2020 12:00:00 AM EST eCW1 ([facility]) O99.213 Obesity complicating , third tr imester Obesity complicating in third trimester Problem 03/23/2020 12:00:00 AM EST eCW1 ([facility]) O99.212 [id number] Obesity complicating in second trimester Problem 12/07/2019 12:00:00 AM EDT eCW1 ([facility]) Z34.80 care Supervision of other normal P roblem 12/07/2019 12:00:00 AM EDT eCW1 ([facility]) M79.7 [id number] Fibromyalgia Problem 04/06/2019 12:00:00 AM EST eCW1 ([facility]) R79.82 [id number] Elevated C-reactive protein (CRP) Prob jessa 04/06/2019 12:00:00 AM EST eCW1 ([facility]) M79.7 [id number] Fibromyalgia Problem 04/06/2019 12:00:00 AM EST eCW1 ([facility]) R79.82 [id number] Elevated C-reactive protein (CRP) Prob jessa 04/06/2019 12:00:00 AM EST eCW1 ([facility]) shingles with occular involvement shingles with occula r involvement Diagnosis 03/02/2020 10:20:00 AM [facility] R07.9 Chest pain, unspecified Chest pain, unspecified Diagno sis 11/11/2019 10:34:12 AM EDT [facility] R0789 Other chest pain Other chest pain Diagnosis 07/29/2019 04 :25:00 PM EDT [facility] R569 Unspecified convulsions Unspecified convulsions Diagno sis 07/29/2019 04:25:00 PM EDT [facility] R945 Abnormal results of liver function studi es Abnormal results of liver function studies Diagnosis 07/29/2019 04:25:00 PM EDT [facility] E669 Obesity, unspecified Obesity, unspecified Diagnosis 06/23/2019 01:18:00 PM EDT [facility] E559 Vitamin D deficiency, unspecified Vitamin D defi ciency, unspecified Diagnosis 06/23/2019 01:18:00 PM EDT [facility] B029 Zoster without complications Zoster without complicati ons Diagnosis 05/26/2019 12:40:00 PM EDT [facility] Y9289 Other specified places as the place of o ccurrence of the external cause Other specified places as the place of occurrence of the external cause Diagnosis 03/24/2019 04:07:00 PM [facility] [id number] Other fall on same level, initial encoun ter Other fall on same level, initial encounter Diagnosis 03/24/2019 04:07:00 PM [facility] [id number] Contusion of lower back and pelvis, init ial encounter Contusion of lower back and pelvis, initial encounter Diagnosis 03/24/2019 04:07:00 PM E [facility] [id number] Unspecified injury of lower back, initia l encounter Unspecified injury of lower back, initial encounter Diagnosis 03/24/2019 04:07:00 PM [facility] H9193 Unspecified hearing loss, bilateral Unspecified hearing loss, bilateral Diagnosis 03/17/2019 09:53:00 AM [facility] M542 Cervicalgia Cervicalgia Diagnosis 03/17/2019 09:53:00 AM [facility] [id number] Strain of muscle, fascia and tendon at n [place] level, initial encounter Strain of muscle, fascia and tendon at neck level, initial encounter Diagnosis 03/17/2019 09:53:00 AM [facility] Surgeries/Procedures Procedure Description Date Indications Data Source(s) Extended Individual Psychotherapy - 45 min 04/11/2020 12:00:00 AM EST - 04/11/2020 12:00:00 AM EST [facility] ([facility]) Extended Individual Psychotherapy - 45 min 12:00:00 AM EST [facility] ([facility]) NONSTRESS TEST 03/31/2020 12:00:00 AM EST eCW1 ([facility]) Extended Individual Psychotherapy - 45 min 03/24/2020 12:00:00 AM EST - 03/24/2020 12:00:00 AM EST [facility] ([facility]) Extended Individual Psychotherapy - 45 min 12:00:00 AM EST [facility] ([facility]) NONSTRESS TEST 03/23/2020 12:00:00 AM EST eCW1 ([facility]) MHC Telemed E/M Lvl 3--Est pt 03/21/2020 12:00:00 AM EST - 03/21/2020 12:00:00 AM EST [facility] ([facility]) Psychotherapy ADD ON - 30 Minutes 03/21/2020 12:00:00 AM EST [facility] ([facility]) MHC Telemed E/M Lvl 3--Est pt 03/21/2020 12:00:[address] [facility] ([facility]) Extended Individual Psychotherapy - 45 min 03/17/2020 12:00:00 AM EST - 03/17/2020 12:00:00 AM EST [facility] ([facility]) Extended Individual Psychotherapy - 45 min 12:00:00 AM EST [facility] ([facility]) NONSTRESS TEST 03/16/2020 12:00:00 AM EST eCW1 ([facility]) NONSTRESS TEST 03/08/2020 12:00:00 AM EST eCW1 ([facility]) Extended Individual Psychotherapy - 45 min 03/06/2020 12:00:00 AM EST - 03/06/2020 12:00:00 AM EST [facility] ([facility]) Extended Individual Psychotherapy - 45 min 1 12:00:00 AM EST [facility] ([facility]) Nurse Visit Blood Pressure Check 02/28/2020 12:00:00 A M EST eCW1 ([facility]) Extended Individual Psychotherapy - 45 min 02/11/2020 12:00:00 AM EST - 02/11/2020 12:00:00 AM EST [facility] ([facility]) Extended Individual Psychotherapy - 45 min 0 12:00:00 AM EST [facility] ([facility]) OFFICE OUTPATIENT VISIT 15 MINUTES 01/24 12:00:00 AM EST - 01/25/2020 12:00:00 AM EST [facility] ([facility]) OFFICE OUTPATIENT VISIT 15 MINUTES 01/25/2020 12:00:00 AM EST [facility] ([facility]) Extended Individual Psychotherapy - 45 min 01/25/2020 12:00:00 AM EST - 01/25/2020 12:00:00 AM EST [facility] ([facility]) Extended Individual Psychotherapy - 45 min 0 12:00:00 AM EST [facility] ([facility]) Extended Individual Psychotherapy - 45 min 01/10/2020 12:00:00 AM EST - 01/10/2020 12:00:00 AM EST [facility] ([facility]) Extended Individual Psychotherapy - 45 min 0 12:00:00 AM EST [facility] ([facility]) OFFICE OUTPATIENT VISIT 15 MINUTES 12/29 12:00:00 AM EDT - 12/30/2019 12:00:00 AM EDT [facility] ([facility]) OFFICE OUTPATIENT VISIT 15 MINUTES 12/30/2019 12:00:00 AM EDT [facility] ([facility]) Brief Individual Psychotherapy - 30 min 12/16/2019 12:00:00 AM EDT - 12/16/2019 12:00:00 AM EDT [facility] ([facility]) Brief Individual Psychotherapy - 30 min 12/16/2019 12: 00:00 AM EDT [facility] ([facility]) MHC Telemed E/M Lvl 3--Est pt 12/02/2019 12:00:00 AM EDT - 12/02/2019 12:00:00 AM EDT [facility] ([facility]) Psychotherapy ADD ON - 30 Minutes 12/02/2019 12:00:00 AM EDT [facility] ([facility]) MHC Telemed E/M Lvl 3--Est pt 12/02/2019 12:00:00 AM E DT [facility] ([facility]) Extended Individual Psychotherapy - 45 min 11/30/2019 12:00:00 AM EDT - 11/30/2019 12:00:00 AM EDT [facility] ([facility]) Extended Individual Psychotherapy - 45 min 0 12:00:00 AM EDT [facility] ([facility]) Extended Individual Psychotherapy - 45 min 11/09/2019 12:00:00 AM EDT - 11/09/2019 12:00:00 AM EDT [facility] ([facility]) Extended Individual Psychotherapy - 45 min 0 12:00:00 AM EDT [facility] ([facility]) MHC Telemed E/M Lvl 3--Est pt 11/04/2019 12:00:00 AM EDT - 11/04/2019 12:00:00 AM EDT [facility] ([facility]) Psychotherapy ADD ON - 30 Minutes 11/04/2019 12:00:00 AM EDT [facility] ([facility]) MHC Telemed E/M Lvl 3--Est pt 11/04/2019 12:00:00 AM E DT [facility] ([facility] [facility]) TEMPMHCTelemed 30" Psychotherapy 020 12:00:00 AM EDT - 09/02/2019 12:00:00 AM EDT [facility] ([facility]) TEMPMHCTelemed 30" Psychotherapy 09/02/2019 12:00:00 A M EDT [facility] ([facility]) [id number]"Psychotherapy 0 12:00:00 AM EDT - 08/20/2019 12:00:00 AM EDT [facility] ([facility]) [id number]"Psychotherapy 08/20/2019 12:00:00 AM EDT [facility] ([facility]) MHC Telemed E/M Lvl 3--Est pt 08/17/2019 12:00:00 AM EDT - 08/17/2019 12:00:00 AM EDT [facility] ([facility]) Psychotherapy ADD ON - 30 Minutes 08/17/2019 12:00:00 AM EDT [facility] ([facility]) MHC Telemed E/M Lvl 3--Est pt 08/17/2019 12:00:00 AM E DT [facility] ([facility]) [id number]"Psychotherapy 0 12:00:00 AM EDT - 08/06/2019 12:00:00 AM EDT [facility] ([facility]) [id number]"Psychotherapy 08/06/2019 12:00:00 AM EDT [facility] ([facility]) TEMPMHCTelemed 30" Psychotherapy 020 12:00:00 AM EDT - 07/23/2019 12:00:00 AM EDT [facility] ([facility]) TEMPMHCTelemed 30" Psychotherapy 07/23/2019 12:00:00 A M EDT [facility] ([facility]) MHC Telemed E/M Lvl 3--Est pt 07/20/2019 12:00:00 AM EDT - 07/20/2019 12:00:00 AM EDT [facility] ([facility]) MHC Telemed E/M Lvl 3--Est pt 07/20/2019 12:00:00 AM E DT [facility] ([facility]) [id number]"Psychotherapy 0 12:00:00 AM EDT - 07/06/2019 12:00:00 AM EDT [facility] ([facility]) [id number]"Psychotherapy 07/06/2019 12:00:00 AM EDT [facility] ([facility]) [id number]"Psychotherapy 0 12:00:00 AM EDT - 06/24/2019 12:00:00 AM EDT [facility] ([facility]) [id number]"Psychotherapy 06/24/2019 12:00:00 AM EDT [facility] ([facility]) MHC Telemed E/M Lvl 3--Est pt 06/14/2019 12:00:00 AM EDT - 06/14/2019 12:00:00 AM EDT [facility] ([facility]) MHC Telemed E/M Lvl 3--Est pt 06/14/2019 12:00:00 AM E DT [facility] ([facility]) [id number]"Psychotherapy 0 12:00:00 AM EDT - 06/14/2019 12:00:00 AM EDT [facility] ([facility]) [id number]"Psychotherapy 06/10/2019 12:00:00 AM EDT [facility] ([facility]) [id number]"Psychotherapy 0 12:00:00 AM EDT - 05/27/2019 12:00:00 AM EDT [facility] ([facility]) [id number]"Psychotherapy 05/27/2019 12:00:00 AM EDT [facility] ([facility]) [id number]"Psychotherapy 0 12:00:00 AM EDT - 05/24/2019 12:00:00 AM EDT [facility] ([facility]) [id number]"Psychotherapy 05/24/2019 12:00:00 AM EDT [facility] ([facility]) Extended Individual Psychotherapy - 45 min 05/12/2019 12:00:00 AM EDT - 05/12/2019 12:00:00 AM EDT [facility] ([facility]) Extended Individual Psychotherapy - 45 min 0 12:00:00 AM EDT [facility] ([facility]) OFFICE OUTPATIENT VISIT 15 MINUTES 04/27 12:00:00 AM EST - 04/27/2019 12:00:00 AM EST [facility] ([facility]) OFFICE OUTPATIENT VISIT 15 MINUTES 04/27/2019 12:00:00 AM EST [facility] ([facility]) Extended Individual Psychotherapy - 45 min 04/27/2019 12:00:00 AM EST - 04/27/2019 12:00:00 AM EST [facility] ([facility]) Extended Individual Psychotherapy - 45 min 0 12:00:00 AM EST [facility] ([facility]) OFFICE OUTPATIENT VISIT 15 MINUTES 04/23 12:00:00 AM EST - 04/23/2019 12:00:00 AM EST [facility] ([facility]) OFFICE OUTPATIENT VISIT 15 MINUTES 04/23/2019 12:00:00 AM EST [facility] ([facility]) OFFICE OUTPATIENT VISIT 15 MINUTES 04/14 12:00:00 AM EST - 04/14/2019 12:00:00 AM EST [facility] ([facility]) OFFICE OUTPATIENT VISIT 15 MINUTES 04/14/2019 12:00:00 AM EST [facility] ([facility]) Extended Individual Psychotherapy - 45 min 03/30/2019 12:00:00 AM EST - 03/30/2019 12:00:00 AM EST [facility] ([facility]) Extended Individual Psychotherapy - 45 min 0 12:00:00 AM EST [facility] ([facility]) Extended Individual Psychotherapy - 45 min 03/16/2019 12:00:00 AM EST - 03/16/2019 12:00:00 AM EST [facility] ([facility]) Extended Individual Psychotherapy - 45 min 0 12:00:00 AM EST [facility] ([facility]) OFFICE OUTPATIENT VISIT 15 MINUTES 03/10 12:00:00 AM EST - 03/10/2019 12:00:00 AM EST [facility] ([facility]) OFFICE OUTPATIENT VISIT 15 MINUTES 03/10/2019 12:00:00 AM EST [facility] ([facility]) Extended Individual Psychotherapy - 45 min 02/26/2019 12:00:00 AM EST - 02/26/2019 12:00:00 AM EST [facility] ([facility]) Extended Individual Psychotherapy - 45 min 9 12:00:00 AM EST [facility] ([facility]) Results ID Date Data Source [id number] 04/06/2020 06:45:00 PM EST [facility] Name Value Range Interpretation Code Description Data Rema rce(s) Supporting Document(s) SARS coronavirus 2 RNA [Presence] in Res piratory specimen by PATSY with probe detection NEGATIVE [facility] This lab was ordered by [facility] a nd reported by [facility]. ID Date Data Source TOTAL PROTEIN,RANDOM URINE 03/31/2020 12:00:00 AM EST eCW1 ( [facility]) Name Value Range Interpretation Code Description Data Rema rce(s) Supporting Document(s) 12.9 0.0-12.0 TOTAL PROTEIN,RANDOM URIN E eCW1 ([facility]) ID Date Data Source CREATININE,RANDOM URINE 03/31/2020 12:00:00 AM EST eCW1 ([facility]) Name Value Range Interpretation Code Description Data Rema rce(s) Supporting Document(s) 92.4 CREATININE,RANDOM URINE eCW1 ( [facility]) ID Date Data Source Comprehensive Metabolic Profile (CMP) 03/31/2020 12:00:00 AM EST eCW1 ([facility]) Name Value Range Interpretation Code Description Data Rema rce(s) Supporting Document(s) 116 70-100 GLUCOSE, FASTING eCW1 ([facility]) 0.67 0.55-1.30 CREATININE FOR GFR eCW1 ([facility]) 9 7-18 BLOOD UREA NITROGEN eCW1 ([facility]) > 60.0 >60 GLOMERULAR FILTRATION RATE eCW 1 ([facility]) 138 136-145 SODIUM LEVEL eCW1 ([facility]) 4.4 3.5-5.1 POTASSIUM SERUM eCW1 ([facility]) 103 98-107 CHLORIDE LEVEL eCW1 ([facility]) 9.1 8.5-10.1 CALCIUM LEVEL eCW1 ([facility]) 29 21-32 CARBON DIOXIDE LEVEL eCW1 ([facility]) 13 12-78 ALT/SGPT eCW1 ([facility]) 6 7-37 AST/SGOT eCW1 ([facility]) 0.2 0.2-1.0 BILIRUBIN,TOTAL eCW1 ([facility]) 2.4 3.2-5.2 ALBUMIN eCW1 ([facility]) 6.4 6.4-8.2 TOTAL PROTEIN eCW1 ([facility]) 122 45-117 ALKALINE PHOSPHATASE eCW1 ([facility]) 0.6 1.2-2.2 ALBUMIN/GLOBULIN RATIO eCW1 ([facility]) ID Date Data Source CBC - Complete Blood Count 03/31/2020 12:00:00 AM EST eCW1 ( [facility]) Name Value Range Interpretation Code Description Data Rema rce(s) Supporting Document(s) 4.28 4.00-5.40 RED BLOOD COUNT eCW1 ([facility]) 12.1 4.0-10.0 WHITE BLOOD COUNT eCW1 ([facility]) 13.2 12.0-15.5 HEMOGLOBIN eCW1 ([facility]) 30.8 27.0-33.0 MEAN CORPUSCULAR HEMOGLOB IN eCW1 ([facility]) 39.0 36.0-47.0 HEMATOCRIT eCW1 ([facility]) 33.8 32.0-36.5 MEAN CORPUSCULAR HGB CONC eCW1 ([facility]) 91.1 80.0-96.0 MEAN CORPUSCULAR VOLUME e CW1 ([facility]) 197 150-450 PLATELET COUNT, AUTOMATED eCW1 ([facility]) 13.8 11.5-14.5 RED CELL DISTRIBUTION WID TH eCW1 ([facility]) ID Date Data Source Pre Eclampsia Profile 03/08/2020 12:00:00 AM EST eCW1 ([facility]) Name Value Range Interpretation Code Description Data Rema rce(s) Supporting Document(s) 0.62 0.55-1.30 CREATININE FOR GFR eCW1 ([facility]) 7 7-37 AST/SGOT eCW1 ([facility]) > 60.0 >60 GLOMERULAR FILTRATION RATE eCW 1 ([facility]) 16 12-78 ALT/SGPT eCW1 ([facility]) 145 84-246 LDH LACTATE DEHYDROGENASE eCW1 ([facility]) 3.6 2.6-6.0 URIC ACID eCW1 ([facility]) 0.2 0.2-1.0 BILIRUBIN,TOTAL eCW1 ([facility]) ID Date Data Source Glucose Challenge Test 1 Hour 01/24/2020 12:00:00 AM EST eCW 1 ([facility]) Name Value Range Interpretation Code Description Data Rema rce(s) Supporting Document(s) 121 LESS THAN 140 GLUCOSE CHALLENGE TEST 1 HOUR eCW1 ([facility]) ID Date Data Source Type and Screen (D Rh Antibody Screen) 01/24/2020 12:00:00 A M EST eCW1 ([facility]) Name Value Range Interpretation Code Description Data Rema rce(s) Supporting Document(s) NEGATIVE AB SCREEN (INDIRECT COOMB S)VIS eCW1 ([facility]) O POSITIVE BLOOD TYPE eCW1 ([facility]) ID Date Data Source WWBC OBS COMPLETE US 12/21/2019 03:14:36 AM EDT eCW1 ([facility]) Name Value Range Interpretation Code Description Data Rema rce(s) Supporting Document(s) eCW1 ([facility]) ID Date Data Source PAP REQUEST FOR SERVICE 12/13/2019 02:40:09 AM EDT eCW1 ([facility]) Name Value Range Interpretation Code Description Data Rema rce(s) Supporting Document(s) eCW1 ([facility]) ID Date Data Source HEPATITIS C ANTIBODY INDEX 12/13/2019 02:39:54 AM EDT eCW1 ( [facility]) Name Value Range Interpretation Code Description Data Rema rce(s) Supporting Document(s) 1.1 eCW1 ([facility]) ID Date Data Source HBSAG 12/09/2019 10:34:13 AM EDT eCW1 ([facility]) Name Value Range Interpretation Code Description Data Rema rce(s) Supporting Document(s) NEGATIVE eCW1 ([facility]) ID Date Data Source RUBELLA IMMUNE STATUS IgG 12/09/2019 10:33:58 AM EDT eCW1 ([facility]) Name Value Range Interpretation Code Description Data Rema rce(s) Supporting Document(s) IMMUNE eCW1 ([facility]) ID Date Data Source SYPHILIS ANTIBODY (RPR SCREEN) 12/09/2019 10:33:52 AM EDT eC W1 ([facility]) Name Value Range Interpretation Code Description Data Rema rce(s) Supporting Document(s) NONREACTIVE eCW1 ([facility]) ID Date Data Source [id number] 12/09/2019 10:19:01 AM EDT eCW1 ([facility]) Name Value Range Interpretation Code Description Data Rema rce(s) Supporting Document(s) eCW1 ([facility]) ID Date Data Source [id number] 10/24/2019 06:15:00 PM EDT [facility] ([facility]) Name Value Range Interpretation Code Description Data Rema rce(s) Supporting Document(s) Reflex Urine Culture Laboratory test result Norm al (applies to non-numeric results) [facility]) <content>FULL REPORT IN LAB NOTES (eCW a [...] FOR ESBL</content>
<content></content> ID Date Data Source [id number] 10/24/2019 06:15:00 PM EDT [facility] ([facility]) Name Value Range Interpretation Code Description Data Rema rce(s) Supporting Document(s) Appearance, Urine RFX Laboratory test result Above high no rmal [facility] ([facility]) Color, Urine RFX Laboratory test result Normal ( applies to non-numeric results) [facility] ([facility]) PH,Urine RFX 5.0 units 5.0-9.0 Normal (applies to non-numeric res ults) [facility] ([facility]) Specific [place] Ur Auto RFX 1.021 1.002-1.035 Nor mal (applies to non-numeric results) [facility] ([facility]) Protein, Urine Auto RFX Laboratory test result N ormal (applies to non-numeric results) [facility] ([facility]) Ketone, Urine Auto RFX Laboratory test result Above high n ormal [facility] ([facility]) Glucose, Urine (Ua) Auto RFX Laboratory test result Normal (applies to non- numeric results) [facility] ([facility]) Urobilinogen, Urine Auto RFX 0.2 mg/dL 0.0-2.0 Nor mal (applies to non-numeric results) [facility] ([facility]) Bilirubin, Urine Auto RFX Laboratory test result Normal (applies to non- numeric results) [facility] ([facility]) Blood, Urine Blood RFX Laboratory test result No rmal (applies to non-numeric results) [facility] ([facility]) Nitrite, Urine Auto RFX Laboratory test result N ormal (applies to non-numeric results) [facility] ([facility]) Leukocyte Esterase Ur Auto RFX Laboratory test result Abov e high normal [facility] ([facility]) WBC, Urine Auto RFX 2 /HPF 0-3 Normal (applies to non-nume zeny results) [facility] ([facility]) RBC, Urine Auto RFX 2 /HPF 0-3 Normal (applies to non-nume zeny results) [facility] ([facility]) Bacteria, Urine Auto RFX Laboratory test result Normal (applies to non-numeric results) [facility] ([facility]) Squam Epithelial Cell Ur Aurfx 5 /HPF 0-6 N ormal (applies to non-numeric results) [facility] ([facility]) Hyaline Cast, Urine Auto RFX 0 /LPF 0-1 Normal (appl ies to non-numeric results) [facility] ([facility]) Mucus, Urine RFX Laboratory test result Normal ( applies to non-numeric results) [facility] ([facility]) ID Date Data Source [id number] 10/24/2019 05:33:00 PM EDT [facility] ([facility]) Name Value Range Interpretation Code Description Data Rema rce(s) Supporting Document(s) Lipase [Enzymatic activity/volume] in Serum or Plasma 72 U/L 73-393 Below low normal [facility] ([facility]) <content>note:<nlbl:demographic_changed> </content>
<content></content> ID Date Data Source [id number] 10/24/2019 05:33:00 PM EDT [facility] ([facility]) Name Value Range Interpretation Code Description Data Rema rce(s) Supporting Document(s) Glucose, Fasting 88 mg/dL 70-100 Normal (applies to non-numeric results) [facility] ([facility]) Blood Urea Nitrogen 9 mg/dL 7-18 Normal (applies to non-nume zeny results) [facility] ([facility]) Glomerular Filtration Rate Laboratory test result Normal (applies to non- numeric results) [facility]) <content>Units are mL/min/1.73 m2</content>
<content></content>
<content>Chronic Kidney Disease Staging per NKF:</content>
<content></content>
<content>Stage I & II GFR >=60 Normal to Mildly Decreased</content>
<content>Stage III GFR 30-59 Moderately Decreased</content>
<content>Stage IV GFR 15-29 Severely Decreased</content>
<content>Stage V GFR <15 Very Little GFR Left</content>
<content>ESRD GFR <15 on BEREAVEMENT PROGRAM COORDINATOR</content>
<content></content> Creatinine For GFR 0.69 mg/dL 0.55-1.30 Normal (applies to non -numeric results) [facility] ([facility]) Sodium Level 139 meq/L 136-145 Normal (applies to non-numeric res ults) [facility]) Potassium Serum 3.9 meq/L 3.5-5.1 Normal (applies to non-numeric results) [facility] ([facility]) Carbon Dioxide Level 23 meq/L 21-32 Normal (applies to non-num prashanth results) [facility]) Chloride Level 108 meq/L 98-107 Above high normal [facility] ([facility]) Calcium Level 8.6 mg/dL 8.5-10.1 Normal (applies to non-numeric re sults) [facility] ([facility]) Anion Gap 8 meq/L 8-16 Normal (applies to non-numeric resul ts) [facility]) ID Date Data Source [id number] 10/24/2019 05:33:00 PM EDT [facility] ([facility]) Name Value Range Interpretation Code Description Data Rema rce(s) Supporting Document(s) Alt/SGPT 23 U/L 12-78 Normal (applies to non-numeric resul ts) [facility] ([facility]) Ast/Sgot 15 U/L 7-37 Normal (applies to non-numeric resul ts) [facility] ([facility]) Alkaline Phosphatase 80 U/L 45-117 Normal (applies to non-num prashanth results) [facility] ([facility]) Bilirubin,Total 0.4 mg/dL 0.2-1.0 Normal (applies to non-numeric results) [facility] ([facility]) Total Protein 7.1 GM/DL 6.4-8.2 Normal (applies to non-numeric re sults) [facility] ([facility]) Bilirubin,Direct 0.1 mg/dL 0.0-0.2 Normal (applies to non-numeric results) [facility] ([facility]) Albumin 3.2 GM/DL 3.2-5.2 Normal (applies to non-numeric resul ts) [facility] ([facility]) Albumin/Globulin Ratio 0.8 1.2-2.2 Below low normal [facility] ([facility]) ID Date Data Source [id number] 10/24/2019 05:33:00 PM EDT [facility] ([facility]) Name Value Range Interpretation Code Description Data Rema rce(s) Supporting Document(s) White Blood Count 9.9 10 4.0-10.0 Normal (applies to non-numeri c results) [facility] ([facility]) Red Blood Count 4.64 10 4.00-5.40 Normal (applies to non-numeric results) [facility] ([facility]) Hemoglobin 13.7 g/dL 12.0-15.5 Normal (applies to non-numeric resul ts) [facility] ([facility]) Hematocrit 40.5 % 36.0-47.0 Normal (applies to non-numeric resul ts) [facility] ([facility]) Mean Corpuscular Volume 87.3 fl 80.0-96.0 Normal ( applies to non-numeric results) [facility] ([facility]) Mean Corpuscular Hemoglobin 29.5 pg 27.0-33.0 Norm al (applies to non-numeric results) [facility] ([facility]) Mean Corpuscular HGB Conc 33.8 g/dL 32.0-36.5 Normal (applies to non-numeric results) [facility] ([facility]) Red Cell Distribution Width 13.9 % 11.5-14.5 Norm al (applies to non-numeric results) [facility] ([facility]) Platelet Count, Automated 223 10 150-450 Normal (applies to non-numeric results) [facility] ([facility]) Neutrophils % 78.7 % 36.0-66.0 Above high normal [facility] ([facility]) Eos % 2.9 % 0.0-3.0 Normal (applies to non-numeric resul ts) [facility] ([facility]) [place] % 2.9 % 0.0-5.0 Normal (applies to non-numeric resul ts) [facility] ([facility]) Lymph % 14.6 % 24.0-44.0 Below low normal [facility] ( [facility]) Nucleated Red Blood Cell % 0.0 % 0-0 Normal (applies to n on-numeric results) [facility] ([facility]) Baso % 0.4 % 0.0-1.0 Normal (applies to non-numeric resul ts) [facility] ([facility]) Immature Granulocyte % 0.5 % 0-3.0 Normal (applies to non-n umeric results) [facility] ([facility]) Neutrophils # 7.8 10 1.5-8.5 Normal (applies to non-numeric re sults) [facility] ([facility]) [place] # 0.3 10 0.0-0.8 Normal (applies to non-numeric resul ts) [facility] ([facility]) Lymph # 1.5 10 1.5-5.0 Normal (applies to non-numeric resul ts) [facility] ([facility]) Baso # 0.0 10 0.0-0.2 Normal (applies to non-numeric resul ts) [facility] ([facility]) Eos # 0.3 10 0.0-0.5 Normal (applies to non-numeric resul ts) [facility] ([facility]) ID Date Data Source [id number] 10/23/2019 02:05:00 AM EDT [facility] Name Value Range Interpretation Code Description Data Rema rce(s) Supporting Document(s) HCV RNA PATSY Qualitative Negative Negative [facility] Negative: HCV RNA Not Detected ID Date Data Source [id number] 10/23/2019 02:05:00 AM EDT [facility] Name Value Range Interpretation Code Description Data Rema rce(s) Supporting Document(s) Please note [facility] The date recorded on the requisition ind icates the sample(s) receivedwere greater than 72 hours old upon arrival in our laboratory. ID Date Data Source [id number] 09/09/2019 07:43:00 PM EDT [facility] ([facility]) Name Value Range Interpretation Code Description Data Rema rce(s) Supporting Document(s) Laboratory test finding (navigational concept) 40.0 % 3 8.0-51.0 Normal (applies to non-numeric results) [facility] ([facility]) Laboratory test finding (navigational concept) 139 meq/L 1 36-145 Normal (applies to non-numeric results) [facility] ([facility]) Laboratory test finding (navigational concept) 106 mg/dL 7 0-105 Above high normal [facility] ([facility]) Laboratory test finding (navigational concept) 3.7 meq/L 3 .5-5.1 Normal (applies to non-numeric results) [facility] ([facility]) Laboratory test finding (navigational concept) 5.1 mg/dL 4 .5-5.3 Normal (applies to non-numeric results) [facility] ([facility]) Laboratory test finding (navigational concept) 102 meq/L 9 8-109 Normal (applies to non-numeric results) [facility] ([facility]) Laboratory test finding (navigational concept) 15 mg/dL 8 -26 Normal (applies to non-numeric results) [facility] ([facility]) Laboratory test finding (navigational concept) 24.0 MM/L 2 3.0-27.0 Normal (applies to non-numeric results) [facility] ([facility]) Laboratory test finding (navigational concept) 0.9 mg/dL 0 .6-1.3 Normal (applies to non-numeric results) [facility] ([facility]) ID Date Data Source [id number] 09/09/2019 07:27:00 PM EDT [facility] Name Value Range Interpretation Code Description Data Rema rce(s) Supporting Document(s) Erythrocyte sedimentation rate by Westergren method 49 mm/hr 0-20 Above high normal [facility] ([facility]) ID Date Data Source [id number] 09/09/2019 07:27:00 PM EDT [facility] ([facility]) Name Value Range Interpretation Code Description Data Rema rce(s) Supporting Document(s) Red Blood Count 4.31 10 4.00-5.40 Normal (applies to non-numeric results) [facility] ([facility]) White Blood Count 9.6 10 4.0-10.0 Normal (applies to non-numeri c results) [facility] ([facility]) Hematocrit 38.4 % 36.0-47.0 Normal (applies to non-numeric resul ts) [facility] ([facility]) Hemoglobin 12.9 g/dL 12.0-15.5 Normal (applies to non-numeric resul ts) [facility] ([facility]) Mean Corpuscular Volume 89.1 fl 80.0-96.0 Normal ( applies to non-numeric results) [facility] ([facility]) Mean Corpuscular Hemoglobin 29.9 pg 27.0-33.0 Norm al (applies to non-numeric results) [facility] ([facility]) Mean Corpuscular HGB Conc 33.6 g/dL 32.0-36.5 Normal (applies to non-numeric results) [facility] ([facility]) Red Cell Distribution Width 14.0 % 11.5-14.5 Norm al (applies to non-numeric results) [facility] ([facility]) Platelet Count, Automated 223 10 150-450 Normal (applies to non-numeric results) [facility]) Neutrophils % 59.2 % 36.0-66.0 Normal (applies to non-numeric re sults) [facility] ([facility]) Lymph % 26.3 % 24.0-44.0 Normal (applies to non-numeric resul ts) [facility] ([facility]) [place] % 7.4 % 0.0-5.0 Above high normal [facility] ([facility]) Eos % 5.9 % 0.0-3.0 Above high normal [facility] ([facility]) Immature Granulocyte % 0.4 % 0-3.0 Normal (applies to non-n umeric results) [facility] ([facility]) Baso % 0.8 % 0.0-1.0 Normal (applies to non-numeric resul ts) [facility] ([facility]) Nucleated Red Blood Cell % 0.0 % 0-0 Normal (applies to n on-numeric results) [facility] ([facility]) Neutrophils # 5.7 10 1.5-8.5 Normal (applies to non-numeric re sults) [facility] ([facility]) Lymph # 2.5 10 1.5-5.0 Normal (applies to non-numeric resul ts) [facility] ([facility]) [place] # 0.7 10 0.0-0.8 Normal (applies to non-numeric resul ts) [facility] ([facility]) Baso # 0.1 10 0.0-0.2 Normal (applies to non-numeric resul ts) [facility] ([facility]) Eos # 0.6 10 0.0-0.5 Above high normal [facility] ([facility]) ID Date Data Source [id number] 09/09/2019 07:27:00 PM EDT [facility] ([facility]) Name Value Range Interpretation Code Description Data Rema rce(s) Supporting Document(s) C reactive protein [Mass/volume] in Serum or Plasma by High sensitivity method 0.90 mg/dL 0.00-0.30 Above high normal [facility] ([facility]) <content>note:<nlbl:demographic_changed> </content>
<content></content> ID Date Data Source [id number] 08/30/2019 08:09:00 PM EDT [facility] ([facility]) Name Value Range Interpretation Code Description Data Rema e(s) Supporting Document(s) Choriogonadotropin.beta subunit [Moles/volume] in Serum or Plasm a 141 MIU/ML Normal (applies to non-numeric results) [facility] ([facility]) GESTATIONAL AGE APPROXIMATE HCG RANGE [...] or monitoring the treatment of cancer patients. [employer] methodology. ID Date Data Source [id number] [facility] Name Value Range Interpretation Code Description Data Rema rce(s) Supporting Document(s) Laboratory test finding (navigational concept) 167.2 Normal (applies to non- numeric results) [facility] ([facility]) <content>QUANTITATIVE RESULT QU ALITATIVE INTERPRETATION</content>
<content> </content>
<content><5.0 IU/L NEGATIVE</content>
<content>5.0 - 25.0 IU/L INDETERMINATE</content>
<content>>25.0 IU/L POSITIVE</content>
<content></content> ID Date Data Source [id number] 08/30/2019 07:02:00 PM EDT [facility] ([facility]) Name Value Range Interpretation Code Description Data Rema rce(s) Supporting Document(s) Hemoglobin 13.5 g/dL 12.0-15.5 Normal (applies to non-numeric resul ts) [facility] ([facility]) Red Blood Count 4.58 10 4.00-5.40 Normal (applies to non-numeric results) [facility] ([facility]) White Blood Count 8.7 10 4.0-10.0 Normal (applies to non-numeri c results) [facility] ([facility]) Hematocrit 40.1 % 36.0-47.0 Normal (applies to non-numeric resul ts) [facility] ([facility]) Mean Corpuscular Volume 87.6 fl 80.0-96.0 Normal ( applies to non-numeric results) [facility] ([facility]) Mean Corpuscular Hemoglobin 29.5 pg 27.0-33.0 Norm al (applies to non-numeric results) [facility] ([facility]) Mean Corpuscular HGB Conc 33.7 g/dL 32.0-36.5 Normal (applies to non-numeric results) [facility] ([facility]) Red Cell Distribution Width 13.9 % 11.5-14.5 Norm al (applies to non-numeric results) [facility] ([facility]) Platelet Count, Automated 243 10 150-450 Normal (applies to non-numeric results) [facility] ([facility]) Neutrophils % 59.3 % 36.0-66.0 Normal (applies to non-numeric re sults) [facility]) [place] % 6.9 % 0.0-5.0 Above high normal [facility] ([facility]) Lymph % 27.4 % 24.0-44.0 Normal (applies to non-numeric resul ts) [facility] ([facility]) Baso % 0.7 % 0.0-1.0 Normal (applies to non-numeric resul ts) [facility] ([facility]) Eos % 5.4 % 0.0-3.0 Above high normal [facility] ([facility]) Nucleated Red Blood Cell % 0.0 % 0-0 Normal (applies to n on-numeric results) [facility] ([facility]) Immature Granulocyte % 0.3 % 0-3.0 Normal (applies to non-n umeric results) [facility] ([facility]) Lymph # 2.4 10 1.5-5.0 Normal (applies to non-numeric resul ts) [facility] ([facility]) Neutrophils # 5.2 10 1.5-8.5 Normal (applies to non-numeric re sults) [facility] ([facility]) Eos # 0.5 10 0.0-0.5 Normal (applies to non-numeric resul ts) [facility] ([facility]) [place] # 0.6 10 0.0-0.8 Normal (applies to non-numeric resul ts) [facility] ([facility]) Baso # 0.1 10 0.0-0.2 Normal (applies to non-numeric resul ts) [facility] ([facility]) ID Date Data Source [id number] 07/21/2019 01:37:00 PM EDT [facility] ([facility]) Name Value Range Interpretation Code Description Data Rema rce(s) Supporting Document(s) Gamma glutamyl transferase [Enzymatic activity/volume] in Serum or Plasma 19 U/L 8-78 [facility] ([facility]) Is patient fasting? N ID Date Data Source [id number] 07/21/2019 01:37:00 PM EDT [facility] ([facility]) Name Value Range Interpretation Code Description Data Rema rce(s) Supporting Document(s) Sodium 138 meq/L 134-153 [facility] ([facility]) Is patient fasting? N Comprehensive [place] Laboratory test result [facility] ([facility]) Is patient fasting? N Potassium 4.5 meq/L 3.6-5.0 [facility] ([facility]) Is patient fasting? N Co2 22 meq/L 22-30 [facility] ([facility]) Is patient fasting? N Chloride 102 meq/L 98-107 [facility] ([facility]) Is patient fasting? N BUN 20 mg/dL 7-21 [facility] ([facility]) Is patient fasting? N Glucose 100 mg/dL 65-110 [facility] ([facility]) Is patient fasting? N Creatinine 0.8 mg/dL 0.7-1.5 [facility] ([facility]) Is patient fasting? N BUN/Creat 25 8-27 [facility] ([facility]) Is patient fasting? N Albumin 3.8 g/dL 3.9-5.0 Below low normal [facility] ( [facility]) Is patient fasting? N Total Protein 6.8 g/dL 6.3-8.2 [facility] Is patient fasting? N Globulin 3.0 GM/DL 2.4-3.2 [facility] ([facility]) Is patient fasting? N Total Bili Laboratory test result 0.2-1.3 [facility] ([facility]) Is patient fasting? N A/G Ratio 1.3 0.8-2.0 [facility] ([facility]) Is patient fasting? N Calcium 9.2 mg/dL 8.4-10.2 [facility] Is patient fasting? N Sgot/Ast 18 U/L 5-40 [facility] ([facility]) Is patient fasting? N SGPT/Alt 19 U/L 7-56 [facility] ([facility]) Is patient fasting? N Alkaline Phos 82 U/L 38-126 [facility] ([facility]) Is patient fasting? N Age 38 yrs [facility] ([facility]) Is patient fasting? N Anion Gap 14.0 mmol/L 8.0-16.0 [facility] ([facility]) Is patient fasting? N Afr Amer GFR Laboratory test result [facility] ([facility]) Is patient fasting? N Non-Aa GFR Laboratory test result [facility] ([facility]) Is patient fasting? N ID Date Data Source [id number] 07/21/2019 03:41:00 PM EDT [facility] Name Value Range Interpretation Code Description Data Rema rce(s) Supporting Document(s) Gamma glutamyl transferase [Enzymatic activity/volume] in Serum or Plasma 19 U/L 8 - 78 [facility] ID Date Data Source [id number] 07/21/2019 03:41:00 PM EDT [facility] Name Value Range Interpretation Code Description Data Rema rce(s) Supporting Document(s) COMPREHENSIVE METABOLIC PANEL [facility] COMPREHENSIVE METABOLIC PANEL Sodium [Moles/volume] in Serum or Plasma 138 mEq/L 134 - 153 [facility] Potassium [Moles/volume] in Serum or Plasma 4.5 mEq/L 3.6 - 5.0 [facility] Chloride [Moles/volume] in Serum or Plasma 102 mEq/L 98 - 107 [facility] Carbon dioxide, total [Moles/volume] in Serum or Plasma 22 MEQ/L 22 - 30 [facility] Glucose [Mass/volume] in Serum or Plasma 100 MG/DL 65 - 110 [facility] BUN 20 MG/DL 7 - 21 [facility] al Creatinine [Mass/volume] in Serum or Plasma 0.8 MG/DL 0.7 - 1.5 [facility] BUN/CREAT 25 8 - 27 [facility] Protein [Mass/volume] in Serum or Plasma 6.8 G/DL 6.3 - 8.2 [facility] Albumin [Mass/volume] in Serum or Plasma 3.8 G/DL 3.9 - 5.0 L [facility] Globulin [Mass/volume] in Serum by calculation 3.0 GM/DL 2.4 - 3.2 [facility] A/G RATIO 1.3 0.8 - 2.0 [facility] Calcium [Mass/volume] in Serum or Plasma 9.2 MG/DL 8.4 - 10.2 [facility] Bilirubin.total [Mass/volume] in Serum or Plasma <0.7 MG/DL 0.2 - 1.3 [facility] Alkaline phosphatase [Enzymatic activity/volume] in Serum or Plasma 82 U/L 38 - 126 [facility] Aspartate aminotransferase [Enzymatic activity/volume] in Serum or Plasma 18 U/L 5 - 40 [facility] Alanine aminotransferase [Enzymatic activity/volume] in Seru m or Plasma 19 U/L 7 - 56 [facility] Anion gap 3 in Serum or Plasma 14.0 mmol/L 8.0 - 16.0 [facility] AGE 38 yrs [facility] NON-AA GFR >60 mL/min [facility] AFR AMER GFR >60 mL/min [facility] Ho sp[facility] Male GFR In terprentation [...] >32 mL/min Normal ID Date Data Source [id number] 06/24/2019 11:32:00 AM EDT [facility] ([facility]) Name Value Range Interpretation Code Description Data Rema rce(s) Supporting Document(s) Red Blood Count 4.81 10 4.00-5.40 Normal (applies to non-numeric results) [facility]) White Blood Count 7.4 10 4.0-10.0 Normal (applies to non-numeri c results) [facility] ([facility]) Hemoglobin 13.9 g/dL 12.0-15.5 Normal (applies to non-numeric resul ts) [facility]) Hematocrit 42.0 % 36.0-47.0 Normal (applies to non-numeric resul ts) [facility]) Mean Corpuscular Volume 87.3 fl 80.0-96.0 Normal ( applies to non-numeric results) [facility]) Red Cell Distribution Width 13.9 % 11.5-14.5 Norm al (applies to non-numeric results) [facility]) Platelet Count, Automated 212 10 150-450 Normal (applies to non-numeric results) [facility]) Mean Corpuscular Hemoglobin 28.9 pg 27.0-33.0 Norm al (applies to non-numeric results) [facility] ([facility]) Mean Corpuscular HGB Conc 33.1 g/dL 32.0-36.5 Normal (applies to non-numeric results) [facility] ([facility]) Nucleated Red Blood Cell % 0.0 % 0-0 Normal (applies to n on-numeric results) [facility] ([facility]) ID Date Data Source [id number] 06/24/2019 11:32:00 AM EDT [facility] ([facility]) Name Value Range Interpretation Code Description Data Rema rce(s) Supporting Document(s) Neutrophils % 54.0 % 36.0-66.0 Normal (applies to non-numeric re sults) [facility] ([facility]) Lymph % 30.9 % 24.0-44.0 Normal (applies to non-numeric resul ts) [facility] ([facility]) Eos % 5.8 % 0.0-3.0 Above high normal [facility] ([facility]) [place] % 7.9 % 0.0-5.0 Above high normal [facility] ([facility]) Neutrophils # 4.0 10 1.5-8.5 Normal (applies to non-numeric re sults) [facility] ([facility]) Baso % 1.1 % 0.0-1.0 Above high normal [facility] ([facility]) Immature Granulocyte % 0.3 % 0-3.0 Normal (applies to non-n umeric results) [facility] ([facility]) Lymph # 2.3 10 1.5-5.0 Normal (applies to non-numeric resul ts) [facility] ([facility]) Eos # 0.4 10 0.0-0.5 Normal (applies to non-numeric resul ts) [facility] ([facility]) [place] # 0.6 10 0.0-0.8 Normal (applies to non-numeric resul ts) [facility] ([facility]) Baso # 0.1 10 0.0-0.2 Normal (applies to non-numeric resul ts) [facility] ([facility]) ID Date Data Source [id number] 06/24/2019 11:32:00 AM EDT [facility] ([facility]) Name Value Range Interpretation Code Description Data Rema rce(s) Supporting Document(s) Blood Urea Nitrogen 19 mg/dL 7-18 Above high normal [facility] ([facility]) Glucose, Fasting 86 mg/dL 70-100 Normal (applies to non-numeric results) [facility] ([facility]) Sodium Level 137 meq/L 136-145 Normal (applies to non-numeric res ults) [facility] ([facility]) Glomerular Filtration Rate Laboratory test result Normal (applies to non- numeric results) [facility] <content>Units are mL/min/1.73 m2</content>
<content></content>
<content>Chronic Kidney Disease Staging per NKF:</content>
<content></content>
<content>Stage I & II GFR >=60 Normal to Mildly Decreased</content>
<content>Stage III GFR 30-59 Moderately Decreased</content>
<content>Stage IV GFR 15-29 Severely Decreased</content>
<content>Stage V GFR <15 Very Little GFR Left</content>
<content>ESRD GFR <15 on BEREAVEMENT PROGRAM COORDINATOR</content>
<content></content> Creatinine For GFR 0.86 mg/dL 0.55-1.30 Normal (applies to non -numeric results) [facility] ([facility]) Carbon Dioxide Level 21 meq/L 21-32 Normal (applies to non-num prashanth results) [facility] ([facility]) Chloride Level 109 meq/L 98-107 Above high normal [facility] ([facility]) Potassium Serum 4.8 meq/L 3.5-5.1 Normal (applies to non-numeric results) [facility] ([facility]) Ast/Sgot 47 U/L 7-37 Above high normal [facility] ([facility]) Calcium Level 8.8 mg/dL 8.5-10.1 Normal (applies to non-numeric re sults) [facility] ([facility]) Anion Gap 7 meq/L 8-16 Below low normal [facility] ( [facility]) Alt/SGPT 111 U/L 12-78 Above high normal [facility] ([facility]) Total Protein 7.3 GM/DL 6.4-8.2 Normal (applies to non-numeric re sults) [facility] ([facility]) Alkaline Phosphatase 88 U/L 45-117 Normal (applies to non-num prashanth results) [facility] ([facility]) Bilirubin,Total 0.3 mg/dL 0.2-1.0 Normal (applies to non-numeric results) [facility] ([facility]) Albumin 3.4 GM/DL 3.2-5.2 Normal (applies to non-numeric resul ts) [facility] ([facility]) Albumin/Globulin Ratio 0.87 1.00-1.93 Below low normal [facility] ([facility]) ID Date Data Source [id number] 06/24/2019 11:32:00 AM EDT [facility] Name Value Range Interpretation Code Description Data Rema rce(s) Supporting Document(s) Triglycerides Level 202 mg/dL Above high normal [facility] ([facility]) Cholesterol Level 176 mg/dL Normal (applies to non-numeri c results) [facility] ([facility]) HDL Cholesterol 42 mg/dL Normal (applies to non-numeric results) [facility] ([facility]) Non-HDL-C 134 mg/dL Normal (applies to non-numeric resul ts) [facility] ([facility]) LDL Cholesterol 94 mg/dL Normal (applies to non-numeric results) [facility] ([facility]) Cholesterol Risk Ratio 4.190 Normal (applies to non-n umeric results) [facility] ID Date Data Source [id number] 06/24/2019 11:32:00 AM EDT [facility] Name Value Range Interpretation Code Description Data Rema rce(s) Supporting Document(s) Natriuretic peptide.B prohormone N-Terminal [Mass/volu me] in Serum or Plasma 24 pg/mL Normal (applies to non-numeric results) [facility] ([facility]) <content>note:<nlbl:demographic_changed> </content>
<content></content> Thyrotropin [Units/volume] in Serum or Plasma 1.820 uIU/ML 0. 358-3.740 Normal (applies to non-numeric results) [facility] ([facility]) <content>note:<nlbl:demographic_changed> </content>
<content></content> Calcidiol [Mass/volume] in Serum or Plasma 24.9 ng/mL 30.0- 100.0 Below low normal [facility] ([facility]) <content>note:<nlbl:demographic_changed> </content>
<content></content> ID Date Data Source [id number] 06/24/2019 11:24:00 AM EDT [facility] ([facility]) Name Value Range Interpretation Code Description Data Rema rce(s) Supporting Document(s) Appearance, Urine Laboratory test result Normal (applies to non-numeric results) [facility] ([facility]) Color, Urine Laboratory test result Normal (applies to non -numeric results) [facility] ([facility]) PH,Urine 5.0 units 5.0-9.0 Normal (applies to non-numeric resul ts) [facility] ([facility]) Specific [place] Urine Auto 1.021 1.002-1.035 Norm al (applies to non-numeric results) [facility] ([facility]) Glucose, Urine (Ua) Auto Laboratory test result Normal (applies to non-numeric results) [facility] Protein, Urine Auto Laboratory test result [place] (applies to non-numeric results) [facility]) Ketone, Urine Auto Laboratory test result Normal (applies to non-numeric results) [facility]) Bilirubin, Urine Auto Laboratory test result [place] mal (applies to non-numeric results) [facility] ([facility]) Urobilinogen, Urine Auto 0.2 mg/dL 0.0-2.0 Normal (applies to non-numeric results) [facility]) Leukocyte Esterase, Urine Auto Laboratory test result Normal (applies to non- numeric results) [facility] ([facility]) Nitrite, Urine Auto Laboratory test result [place] (applies to non-numeric results) [facility] ([facility]) Blood, Urine Blood Laboratory test result Above high [place] [facility] ([facility]) WBC, Urine Auto 0 /HPF 0-3 Normal (applies to non-numeric results) [facility] ([facility]) Squamous Epithelial Cell Ur AU 6 /HPF 0-6 N ormal (applies to non-numeric results) [facility] ([facility]) Bacteria, Urine Auto Laboratory test result Norm al (applies to non-numeric results) [facility] ([facility]) RBC, Urine Auto 3 /HPF 0-3 Normal (applies to non-numeric results) [facility] Hyaline Cast, Urine Auto 0 /LPF 0-1 Normal (applies to non -numeric results) [facility]) ID Date Data Source [id number] 06/24/2019 11:24:00 AM EDT [facility] ([facility]) Name Value Range Interpretation Code Description Data Rema rce(s) Supporting Document(s) Amphetamine Screen, Urine Laboratory test result Normal (applies to non- numeric results) [facility] ([facility]) Cannabinoid Screen, Urine Laboratory test result Normal (applies to non- numeric results) [facility] ([facility]) Benzodiazepines, Urine Screen Laboratory test result Normal (applies to non- numeric results) [facility] ([facility]) Barbiturates Screen, Urine Laboratory test result Normal (applies to non- numeric results) [facility] ([facility]) Opiate Screen, Urine Laboratory test result Norm al (applies to non-numeric results) [facility] ([facility]) Opiate test includes Codeine, Morphine, Hydromorphone, Hydrocodone. Oxycodone, Screen, Urine Laboratory test result Normal (applies to non-numeric results) [facility] ([facility]) Test includes Oxycodone and Oxymorphone Cocaine Screen, Urine Laboratory test result [place] mal (applies to non-numeric results) [facility] ([facility]) Propoxyphene Urine, Screen Laboratory test result Normal (applies to non- numeric results) [facility] ([facility]) PCP Screen, Urine Laboratory test result Normal (applies to non-numeric results) [facility] ([facility]) Meperidine, Urine Screen Laboratory test result Normal (applies to non-numeric results) [facility] ([facility]) This test was developed and its performa nce characteristics determined by [employer]. It has not been cleared or approved by the Food and Drug Administration. Methadone, Urine Screen Laboratory test result N ormal (applies to non-numeric results) [facility] ([facility]) Creatinine, Urine 124.7 mg/dL 20.0-300.0 Normal (applie s to non-numeric results) [facility] Tramadol Screen, Urine Laboratory test result No rmal (applies to non-numeric results) [facility] Fentanyl Urine Screen Laboratory test result [place] mal (applies to non-numeric results) [facility] Test includes Fentanyl and Norfentanyl . This test was developed and its performance characteristics determined by [employer]. It has not been cleared or approved by the Food and Drug Administration. Specific [place], Urine 1.028 Normal (applies to non- numeric results) [facility]) Please Note: Laboratory test result Normal (applies to non -numeric results) [facility]) . Drug-test results should be interpreted in the context of clinical information. Patient metabolic variables, specific drug chemistry, and specimen characteristics can affect test outcome. Technical consultation is available if a test result is inconsistent with an expected outcome. ([email or web address] or call toll-free [phone]) . Drug brands, if listed herein, are trademarks of their respective owners. Performed at: [facility] [address] [place] [address] [id number] [place]: Pretty Swain MD, Phone: [phone] pH, Urine 5.0 4.5-8.9 Normal (applies to non-numeric resul ts) [facility] ID Date Data Source [id number] 03/25/2019 11:00:00 AM EST [facility] [address] [place] [address] PHONE: [phone] FAX: [phone] Name .................. : LORRAINE Dawson Acct Number.................. : [id number] ROOM. ................. : TR-1B MR Number ................... : [id number] Stay type ............. : E/R Discharge Date......... ... : 03/24/19 Admit Date ......... : 03/24/19 Admit Phys .................... : TABITHA SHAWNA Date of ....... : 1980 Family Phys ................... : [employer] Phone .................. : [phone] Age ................................ : 38 Film# .................. .:[id number] Sex ................................. : F Unsigned transcriptions are preliminary reports and do not represent a medical or legal document CT LS W/O CONTRAST [id number] COMPLETE:03/24/19 16:57 AMBER [id number] Reason(s): 12/10 tailbone and lower lumbar pain [...] By Juancho Campo MD , 03/25/19 11:00, [facility] Transcribe Initials: LOPEZ , Transcribe Date: 03/24/19 18:27, Dictation Date: Copy for: TABITHA Dawson via fax Copy for: EMERGENCY DEPT via modem Copy for: [address] [place] [address] PHONE: [phone] FAX: [phone] Name .................. : LORRAINE Dawson Acct Number.................. : [id number] ROOM. ................. : TR-1B MR Number ................... : [id number] Stay type ............. : E/R Discharge Date......... ... : 03/24/19 Admit Date ......... : 03/24/19 Admit Phys .................... : TABITHA SHAWNA Date of ....... : 1980 Family Phys ................... : [employer] Phone .................. : [phone] Age ................................ : 38 Film# .................. .:[id number] Sex ................................. : F Unsigned transcriptions are preliminary reports and do not represent a medical or legal document CT LS W/O CONTRAST [id number] COMPLETE:03/24/19 16:57 AMBER [id number] Reason(s): 12/10 tailbone and lower lumbar pain s/p fall DISCHARGED Page 2 of 2 Name Value Range Interpretation Code Description Data Rema rce(s) Supporting Document(s) ID Date Data Source [id number] 03/24/2019 04:07:00 PM EST [facility] 1 OrderSheet [facility] Emergency Department [address] [place] [address] Phone #: [phone]- [phone] 03/24/2019 16:05 Patient: CHEN PETERS Sex: F [...] rce(s) Supporting Document(s) ID Date Data Source [id number] 03/24/2019 04:07:00 PM EST [facility] 1 Medication Reconciliation Report [facility] Emergency Department [address] [place] [address] Phone #: ext- [phone] 03/24/2019 16:05 Patient: CHEN PETERS Sex: F : 1980 Age: 38yWeight: 122.4 [...] Value Range Interpretation Code Description Data Rema e(s) Supporting Document(s) ID Date Data Source [id number] 03/24/2019 04:07:00 PM [place] [address] Medication Administration Record [facility] Emergency Department [address] [place] [address] Phone #: ext- [phone] 03/24/2019 16:05 Patient: CHEN PETERS Sex: F : 1980 Age: 38yWeight: 122.4 kgHeight/Length: 66 inBMI: 43.6ALLERGIES: Amitriptyline, Atenolol, Fish, Geoden, Neurotin, Nortriptlline, Resperidial Date/Time Medication Administered Medication OrderedGiven TORADOL [IM] (KETOROLAC Toradol IM 60 mg (NOW x1)16:24 03/24/2019 TROMETHAMINE)Patti Stevens R.N. Dose: 60 mg IM Name Value Range Interpretation Code Description Data Rema rce(s) Supporting Document(s) ID Date Data Source [id number] 03/24/2019 04:07:00 PM [facility] 1 General Instructions [facility] Emergency Department [address] [place] [address] Phone #: ext- [phone] 03/24/2019 16:05 Patient: CHEN PETERS [facility]#: [id number] Sex: F : 1980 Age: 38ySingle contusion. [...] to plan of care. 2 General Instructions [facility] Emergency Department [address] [place] [address] Phone #: ext- [phone] 03/24/2019 16:05 Patient: CHEN PETERS Sex: F : 1980 Age: 38yNo lifting greater than 5 lbs, no bending or stooping or no prolonged sitting until well. No strenuous activityfor until better.(Electronically signed by MIKE Wallis 03/24/2019 18:48) Name Value Range Interpretation Code Description Data Rema rce(s) Supporting Document(s) ID Date Data Source [id number] 03/24/2019 04:07:00 PM EST [facility] 1 Clinical Report - Nurses [facility] Emergency Department [address] [place] [address] Phone #: ext- [phone] 03/24/2019 16:05 Patient: CHEN PETERS Sex: F : 1980 Age: 38yTRIAGEArrived by EMS. Historian: patient.Triage time: 16:06 03/24/2019. Acuity: LEVEL 4.Chief Complaint: BACK PAIN.Alert. No acute distress.( pt had original fall in january. pt coughed last night and pain got worse. pt has xrays of it but no CT.pt seen [facility] last night for pain, f/u with Dr Camargo today. pt sent for CT.).SEPSIS SCREEN: NEGATIVE. Negative (no infection suspected/documented). --16:13 03/24/19 Corin Thorne R.N.16:06 03/24/19. BP: 107/82. MAP: 90. HR: 77. RR: 20. O2 saturation: 100%. Temp: 98.3 F. Pain levelnow: 12/10. --16:13 03/24/19 Corin Thorne R.N.Weight: 122.4 kg stated. Height/Length: 66 inches Per Patient. BMI: 43.6. --16:05 1/22/20 Zoss, Corin,R.N.MedicationsPROzac Oral 20 mg, daily. --16:08 03/24/19June, R.N. Prazosin HCl Oral. --16:08 03/24/19June, R.N. Ducosate sodium. --16:08 03/24/19June, R.N. Vitamins Oral. --16:08 03/24/19June, R.N. Omeprazole Oral. --16:09 03/24/19June, R.N. Lyrica Oral. --16:09 03/24/19June, R.N. Vitamin D Oral. --16:03/24/19June, R.N. Methocarbamol Oral. --16:09 03/24/19June, R.N.AllergiesAmitriptyline.Atenolol.Fish.Geoden.Neurotin.Nortriptlline.Resperidi al. --16:08 03/24/19June, R.N.PROBLEMS:Endometrosis.Dizziness. 2 Clinical Report - Nurses [facility] Emergency Department [address] [place] [address] Phone #: ext- [phone] 03/24/2019 16:05 Patient: CHEN PETERS Sex: F : 1980 Age: 38yHypertension.Asthma.Migraine Headache.Ovarian Cyst.Mental Illness. --16:10 03/24/19June, R.N.ADDITIONAL SURGERIES:Cholecystectomy.C- Section.Exploratorys ago.Foot surgery for plantar fasciitis.Shunt in head as a child/ removed. --16:10 03/24/19, June, RMaddyN.HistoryPAST MEDICAL HX: Last normal menstrual period- Feb 19.SOCIAL HX: Never smoker. Occasional alcohol use. History of drug use. 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 She was offered HIV testing but declined. She has not traveled outside the [place] exposure: No infectious disease exposure. Patient [...] No skin integrity riskidentified. --16:13 03/24/19 Corin hTorne R.N.Interventions treatment room. --16:13 03/24/19 Corin Thorne R.N. 3 Clinical Report - Nurses [facility] Emergency Department [address] [place] [address] Phone #: ext- [phone] 03/24/2019 16:05 Patient: CHEN PETERS [facility]#: [id number] Sex: F : 1980 Age: 38yNURSING PROGRESS [...] Stevens R.N. 17:40 03/24/19. Pain level now 8/10. -- 17:40 03/24/19 Patti Stevens R.N.DISPOSITION / DISCHARGE 17:33 03/24/19. BP: 126/68. HR: 70. RR: 17. O2 saturation: 100%. Temp: 97.1 F. Pain level now 8/10. --17:34 03/24/19 [facility]St[facility] ER Tech1 Departure time: 17:41 03/24/2019. Condition at departure: stable. No learning barriers present. Discharge instructions provided and reviewed with the patient. Reviewed warnings (please see paper copy). Patient verbalized understanding. Written instructions provided in Belgian. ( Cami given to pt). The patient was discharged by the physician diversional therapist's assistant. She was discharged home and unaccompanied [...] Stevens R.N. 4 Clinical Report - Nurses [facility] Emergency Department [address] [place] [address] Phone #: ext- [phone] 03/24/2019 16:05 [id number] Sex: F : 1980 Age: 38y Name Value Range Interpretation Code Description Data Rema rce(s) Supporting Document(s) ID Date Data Source [id number] 03/24/2019 04:07:00 PM EST [facility] 1 Clinical Report - Physicians/Mid Levels [facility] Emergency Department [address] [place] [address] Phone #: ext- [phone] 03/24/2019 16:05 [id number] Sex: F : 1980 Age: 38y Time [...] injured lower back and tailbone, seen at [facility] and x-rays neg per pt. Coughed yesterday and has had increase in tailbone pain 12/10 since, seen by PCM today and concern [...] saturation: 100%. Temp: 98.3 F.Pain level now: 10/10. Have been reviewed as normal and appear to be correct. Blood pressure normal.Mean arterial pressure- normal. Heart rate normal. Respiratory rate normal. Temperature normal.Oxygen saturation normal.Appearance: Alert. Appears to be in pain. Patient in severe distress. Distress appears due to pain.HEENT: Normal external inspection.Eyes: Pupils equal, round and reactive to light. 2 Clinical Report - Physicians/Mid Levels [facility] Emergency Department [address] [place] [address] Phone #: ext- [phone] 03/24/2019 16:05 Patient: CHEN PETERS Sex: F [...] 5.40) 3 Clinical Report - Physicians/Mid Levels [facility] Emergency Department [address] [place] [address] Phone #: ext- [phone] 03/24/2019 16:05 [id number] Sex: F : 1980 Age: 38y HEMOGLOBIN [...] sodium*. 4 Clinical Report - Physicians/Mid Levels [facility] Emergency Department [address] [place] [address] Phone #: ext- [phone] 03/24/2019 16:05 [id number] Sex: F : 1980 Age: 38y Lyrica [...] Value Range Interpretation Code Description Data Rema e(s) Supporting Document(s) ID Date Data Source [id number] 03/24/2019 04:23:00 PM EST [facility] ([facility]) Name Value Range Interpretation Code Description Data [facility] Supporting Document(s) Potassium 4.6 meq/L 3.6-5.0 [facility] ([facility]) Chloride 103 meq/L 98-107 [facility] ([facility]) Sodium 138 meq/L 134-153 [facility] ([facility]) Comprehensive Metabo Laboratory test result [facility] ([facility]) COMPREHENSIVE METABOLIC PANEL BUN 18 mg/dL 7-21 [facility] ([facility]) Glucose 102 mg/dL 65-110 [facility] ([facility]) Co2 25 meq/L 22-30 [facility] ([facility]) Total Protein 7.1 g/dL 6.3-8.2 [facility] ([facility]) BUN/Creat 23 8-27 [facility] ([facility]) Albumin 4.0 g/dL 3.9-5.0 [facility] ([facility]) Creatinine 0.8 mg/dL 0.7-1.5 [facility] ([facility]) A/G Ratio 1.3 0.8-2.0 [facility] ([facility]) Globulin 3.1 GM/DL 2.4-3.2 [facility] ([facility]) Calcium 9.4 mg/dL 8.4-10.2 [facility] ([facility]) Total Bili 0.7 mg/dL 0.2-1.3 [facility] ([facility]) Alkaline Phos 91 U/L 38-126 [facility] ([facility]) Sgot/Ast 13 U/L 5-40 [facility] ([facility]) SGPT/Alt 14 U/L 7-56 [facility] ([facility]) Anion Gap 10.0 mmol/L 8.0-16.0 [facility] ([facility]) Non-Aa GFR Laboratory test result [facility] ([facility]) Age 38 yrs [facility] ([facility]) Afr Amer GFR Laboratory test result [facility] ([facility]) Male GFR Interprentation 20-49 yrs >60 mL/min [...] >32 mL/min Normal ID Date Data Source [id number] 03/24/2019 04:23:00 PM EST [facility] ([facility]) Name Value Range Interpretation Code Description Data Rema rce(s) Supporting Document(s) CBC No Diff Laboratory test result [facility] ([facility]) COMPLETE BLOOD COUNT WBC 9.2 10^3/uL 4.2-11.0 [facility] ([facility]) Hemoglobin 13.1 g/dL 12.0-16.0 [facility] ([facility]) Hematocrit 39.8 % 37.0-47.0 [facility] ([facility]) RBC 4.65 10^6/uL 4.20-5.40 [facility] ([facility]) MCH 28.2 pg 27.0-34.0 [facility] ([facility]) RDW 15.1 % 11.5-14.5 Above high normal [facility] ([facility]) MCV 85.6 fL 81.0-101 [facility] ([facility]) MCHC 32.9 g/dL 31.0-36.0 [facility] ([facility]) Platelets 237 10^3/uL 150-450 [facility] ([facility]) MPV 10.6 fL 7.4-10.4 Above high normal [facility] ([facility]) ID Date Data Source [id number] 03/24/2019 04:59:00 PM [facility] Name Value Range Interpretation Code Description Data Rema rce(s) Supporting Document(s) COMPREHENSIVE METABOLIC PANEL [facility] COMPREHENSIVE METABOLIC PANEL Sodium [Moles/volume] in Serum or Plasma 138 mEq/L 134 - 153 [facility] Potassium [Moles/volume] in Serum or Plasma 4.6 mEq/L 3.6 - 5.0 [facility] Chloride [Moles/volume] in Serum or Plasma 103 mEq/L 98 - 107 [facility] Carbon dioxide, total [Moles/volume] in Serum or Plasma 25 MEQ/L 22 - 30 [facility] Glucose [Mass/volume] in Serum or Plasma 102 MG/DL 65 - 110 [facility] BUN 18 MG/DL 7 - 21 [facility] Creatinine [Mass/volume] in Serum or Plasma 0.8 MG/DL 0.7 - 1.5 [facility] BUN/CREAT 23 8 - 27 [facility] Protein [Mass/volume] in Serum or Plasma 7.1 G/DL 6.3 - 8.2 [facility] Albumin [Mass/volume] in Serum or Plasma 4.0 G/DL 3.9 - 5.0 [facility] Globulin [Mass/volume] in Serum by calculation 3.1 GM/DL 2.4 - 3.2 [facility] A/G RATIO 1.3 0.8 - 2.0 [facility] Calcium [Mass/volume] in Serum or Plasma 9.4 MG/DL 8.4 - 10.2 [facility] Bilirubin.total [Mass/volume] in Serum or Plasma 0.7 MG/DL 0.2 - 1.3 [facility] Alkaline phosphatase [Enzymatic activity/volume] in Serum or Plasma 91 U/L 38 - 126 [facility] Aspartate aminotransferase [Enzymatic activity/volume] in Serum or Plasma 13 U/L 5 - 40 [facility] Alanine aminotransferase [Enzymatic activity/volume] in Seru m or Plasma 14 U/L 7 - 56 [facility] Anion gap 3 in Serum or Plasma 10.0 mmol/L 8.0 - 16.0 [facility] AGE 38 yrs [facility] NON-AA GFR >60 mL/min [facility] ital AFR AMER GFR >60 mL/min [facility] Male GFR In terprentation [...] >32 mL/min Normal ID Date Data Source [id number] 03/24/2019 04:34:00 PM EST [facility] Name Value Range Interpretation Code Description Data Rema rce(s) Supporting Document(s) CBC NO DIFF [facility] ital COMPLETE BLOOD COUNT Leukocytes [#/volume] in Blood by Automated count 9.2 10^3/uL 4.2 - 1 1.0 [facility] Erythrocytes [#/volume] in Blood by Automated count 4.65 10^6/uL 4. 20 - 5.40 [facility] Hemoglobin [Mass/volume] in Blood 13.1 g/dL 12.0 - 16.0 [facility] Hematocrit [Volume Fraction] of Blood by Automated count 39.8 % 3 7.0 - 47.0 [facility] Erythrocyte mean corpuscular volume [Entitic volume] by Auto mated count 85.6 fL 81.0 - 101 [facility] Erythrocyte mean corpuscular hemoglobin [Entitic mass] by Automated count 28.2 pg 27.0 - 34.0 [facility] Erythrocyte mean corpuscular hemoglobin concentration [Mass/volume] by Automated count 32.9 g/dL 31.0 - 36.0 [facility] Erythrocyte distribution width [Ratio] by Automated count 15.1 % 11.5 - 14.5 H [facility] Platelets [#/volume] in Blood by Automated count 237 10^3/uL 150 - 45 0 [facility] Platelet mean volume [Entitic volume] in Blood by Automated count 10.6 fL 7.4 - 10.4 H [facility] ID Date Data Source [id number] 03/20/2019 06:00:00 PM EST [facility] ([facility]) Name Value Range Interpretation Code Description Data Rema rce(s) Supporting Document(s) Respiratory Panel Laboratory test result [facility] ([facility]) This respiratory PCR panel detects Influ larry A H1, H3 and 2009 H1 viruses, Influenza B virus, Resp iratory syncytial virus, Human metapneumovirus, Parainfluenza virus 1, 2, 3 and 4, Adenovirus, Rhinovirus/Enterovirus, Coronavirus HKU1, NL63, OC43 and 229E, Bordetella pertussis, Mycoplasma pneumoniae and Chlamydia pneumoniae. NEGATIVE by MULTIPLEXED NUCLEIC ACID PCR ID Date Data Source [id number] 03/17/2019 10:32:00 AM EST [facility] ([facility]) Name Value Range Interpretation Code Description Data Rema rce(s) Supporting Document(s) Spine Cerv Comp-5 Or More View Laboratory test result [facility] ([facility]) Spine Thoracic Laboratory test result [facility] ([facility]) Procedure Social History Code Duration Value Status Description Data Source(s ) Smoking 04/11/2020 12:00:00 AM EST Unknown if ever smoked comp leted Unknown if ever smoked [facility] ([facility]) Smoking 04/02/2020 12:00:00 AM EST Former Smoker completed Former Smoker e[facility]1 ([facility]) Smoking 03/24/2020 12:00:00 AM EST Former Smoker completed Former Smoker eCW1 ([facility]) Smoking 03/24/2020 12:00:00 AM EST Former Smoker completed Former Smoker eCW1 ([facility]) Smoking 03/24/2020 12:00:00 AM EST Unknown if ever smoked comp leted Unknown if ever smoked [facility] ([facility]) Smoking 03/21/2020 12:00:00 AM EST Unknown if ever smoked comp leted Unknown if ever smoked [facility] ([facility]) Smoking 03/17/2020 12:00:00 AM EST Unknown if ever smoked comp leted Unknown if ever smoked [facility] ([facility]) Smoking 03/16/2020 12:00:00 AM EST Former Smoker completed Former Smoker eCW1 ([facility]) Smoking 03/06/2020 12:00:00 AM EST Former Smoker completed Former Smoker eCW1 ([facility]) Smoking 03/06/2020 12:00:00 AM EST Former Smoker completed Former Smoker eCW1 ([facility]) Smoking 03/06/2020 12:00:00 AM EST Unknown if ever smoked comp leted Unknown if ever smoked [facility] ([facility]) Smoking 02/21/2020 12:00:00 AM EST Former Smoker completed Former Smoker eCW1 ([facility]) Smoking 02/21/2020 12:00:00 AM EST Former Smoker completed Former Smoker eCW1 ([facility]) Smoking 02/21/2020 12:00:00 AM EST Former Smoker completed Former Smoker eCW1 ([facility]) Smoking 02/11/2020 12:00:00 AM EST Unknown if ever smoked comp leted Unknown if ever smoked [facility] ([facility]) Smoking 01/25/2020 12:00:00 AM EST Unknown if ever smoked comp leted Unknown if ever smoked [facility] ([facility]) Smoking 01/21/2020 12:00:00 AM EST Former Smoker completed Former Smoker eCW1 ([facility]) Smoking 01/21/2020 12:00:00 AM EST Former Smoker completed Former Smoker eCW1 ([facility]) Smoking 01/21/2020 12:00:00 AM EST Former Smoker completed Former Smoker eCW1 ([facility]) Smoking 01/10/2020 12:00:00 AM EST Unknown if ever smoked comp leted Unknown if ever smoked [facility] ([facility]) Smoking 12/30/2019 12:00:00 AM EDT Unknown if ever smoked comp leted Unknown if ever smoked [facility] ([facility]) Smoking 12/16/2019 12:00:00 AM EDT Unknown if ever smoked comp leted Unknown if ever smoked [facility] ([facility]) Smoking 12/07/2019 12:00:00 AM EDT Former Smoker completed Former Smoker eCW1 ([facility]) Smoking 12/02/2019 12:00:00 AM EDT Unknown if ever smoked comp leted Unknown if ever smoked [facility] ([facility]) Smoking 11/30/2019 12:00:00 AM EDT Unknown if ever smoked comp leted Unknown if ever smoked [facility] ([facility]) Smoking 11/09/2019 12:00:00 AM EDT Unknown if ever smoked comp leted Unknown if ever smoked [facility] ([facility]) Smoking 11/04/2019 12:00:00 AM EDT Unknown if ever smoked comp leted Unknown if ever smoked [facility] ([facility]) Smoking 09/02/2019 12:00:00 AM EDT Unknown if ever smoked comp leted Unknown if ever smoked [facility] ([facility]) Smoking 08/20/2019 12:00:00 AM EDT Unknown if ever smoked comp leted Unknown if ever smoked [facility] ([facility]) Smoking 08/17/2019 12:00:00 AM EDT Unknown if ever smoked comp leted Unknown if ever smoked [facility] ([facility]) Smoking 08/06/2019 12:00:00 AM EDT Unknown if ever smoked comp leted Unknown if ever smoked [facility] ([facility]) Smoking 07/23/2019 12:00:00 AM EDT Unknown if ever smoked comp leted Unknown if ever smoked [facility] ([facility]) Smoking 07/20/2019 12:00:00 AM EDT Unknown if ever smoked comp leted Unknown if ever smoked [facility] ([facility]) Smoking 07/06/2019 12:00:00 AM EDT Unknown if ever smoked comp leted Unknown if ever smoked [facility] ([facility]) Smoking 06/24/2019 12:00:00 AM EDT Unknown if ever smoked comp leted Unknown if ever smoked [facility] ([facility]) Smoking 06/14/2019 12:00:00 AM EDT Unknown if ever smoked comp leted Unknown if ever smoked [facility] ([facility]) Smoking 05/27/2019 12:00:00 AM EDT Unknown if ever smoked comp leted Unknown if ever smoked [facility] ([facility]) Smoking 05/24/2019 12:00:00 AM EDT Unknown if ever smoked comp leted Unknown if ever smoked [facility] ([facility]) Smoking 05/12/2019 12:00:00 AM EDT Unknown if ever smoked comp leted Unknown if ever smoked [facility] ([facility]) Smoking 04/27/2019 12:00:00 AM EST Unknown if ever smoked comp leted Unknown if ever smoked [facility] ([facility]) Smoking 04/23/2019 12:00:00 AM EST Unknown if ever smoked comp leted Unknown if ever smoked [facility] ([facility]) Smoking 04/14/2019 12:00:00 AM EST Unknown if ever smoked comp leted Unknown if ever smoked [facility] ([facility]) Smoking 03/30/2019 12:00:00 AM EST Unknown if ever smoked comp leted Unknown if ever smoked [facility] ([facility]) Smoking 03/16/2019 12:00:00 AM EST Unknown if ever smoked comp leted Unknown if ever smoked [facility] ([facility]) Smoking 03/10/2019 12:00:00 AM EST Unknown if ever smoked comp leted Unknown if ever smoked [facility] ([facility]) Smoking 02/26/2019 12:00:00 AM EST Unknown if ever smoked comp leted Unknown if ever smoked [facility] ([facility]) Vital Signs ID Date Data Source UNK Name Value Range Interpretation Code Description Data Source(s) Diastolic blood pressure 90 mm[Hg] 90 mm[Hg] [facility] ([facility]) Systolic blood pressure 132 mm[Hg] 132 mm[Hg] e [facility] ([facility]) Body mass index (BMI) [Ratio] 48.034 kg/m2 48.0 34 kg/m2 [facility] ([facility]) Body height 66 [in_i] 66 [in_i] [facility] ([facility]) Body weight 297.6 [lb_av] 297.6 [lb_av] [facility] ([facility] Diastolic blood pressure 90 mm[Hg] 90 mm[Hg] W ([facility]) Systolic blood pressure 144 mm[Hg] 144 mm[Hg] e [facility] ([facility]) Body mass index (BMI) [Ratio] 47.485 kg/m2 47.4 85 kg/m2 [facility] ([facility]) Body height 66 [in_i] 66 [in_i] [facility] ([facility]) Body weight 133.45 kg 133.45 kg eCW1 ([facility]) Body weight 294.2 [lb_av] 294.2 [lb_av] [facility] ([facility]) Diastolic blood pressure 0 mm[Hg] Normal (applies to non-numeric results) 0 mm[Hg] [facility] ([facility]) Systolic blood pressure 0 mm[Hg] Normal (applies t o non-numeric results) 0 mm[Hg] [facility] Body mass index (BMI) [Ratio] 0.00 kg/m2 No rmal (applies to non-numeric results) 0.00 kg/m2 [facility] ([facility]) Body weight Measured 0.00 lbs Normal (applies to n on-numeric results) 0.[address] [facility] ([facility]) Body height 0.00 in Normal (applies to non-numeric resu lts) 0.[address] [facility] ([facility]) Diastolic blood pressure 78 mm[Hg] 78 mm[Hg] eCW1 ([facility]) Systolic blood pressure 128 mm[Hg] 128 mm[Hg] e CW1 ([facility]) Body mass index (BMI) [Ratio] 47.13 kg/m2 47.13 kg/m2 W1 ([facility]) Body height 66 [in_i] 66 [in_i] eCW1 ([facility]) Body weight 292 [lb_av] 292 [lb_av] eCW1 ([facility]) Diastolic blood pressure 98 mm[Hg] 98 mm[Hg] eCW1 ([facility]) Systolic blood pressure 140 mm[Hg] 140 mm[Hg] e CW1 ([facility]) Body mass index (BMI) [Ratio] 46.807 kg/m2 46.8 07 kg/m2 [facility] ([facility]) Body height 66 [in_i] 66 [in_i] eCW1 ([facility]) Body weight 131.54 kg 131.54 kg eCW1 ([facility]) Body weight 290 [lb_av] 290 [lb_av] eCW1 ([facility]) Diastolic blood pressure 80 mm[Hg] 80 mm[Hg] eCW1 ([facility]) Systolic blood pressure 118 mm[Hg] 118 mm[Hg] e CW1 ([facility]) Body mass index (BMI) [Ratio] 46.517 kg/m2 46.5 17 kg/m2 eCW1 ([facility]) Body height 66 [in_i] 66 [in_i] eCW1 ([facility]) Body weight 130.73 kg 130.73 kg eCW1 ([facility]) Body weight 288.2 [lb_av] 288.2 [lb_av] eCW1 [facility] Diastolic blood pressure 0 mm[Hg] Normal (applies to non-numeric results) 0 mm[Hg] [facility] ([facility]) Systolic blood pressure 0 mm[Hg] Normal (applies t o non-numeric results) 0 mm[Hg] [facility] ([facility]) Body mass index (BMI) [Ratio] 0.00 kg/m2 No rmal (applies to non-numeric results) 0.00 kg/m2 [facility] ([facility]) Body weight Measured 0.00 lbs Normal (applies to n on-numeric results) 0.[address] [facility] ([facility]) Body height 0.00 in Normal (applies to non-numeric resu lts) 0.[address] [facility] ([facility]) Diastolic blood pressure 76 mm[Hg] 76 mm[Hg] eCW1 ([facility]) Systolic blood pressure 136 mm[Hg] 136 mm[Hg] e CW1 ([facility]) Body mass index (BMI) [Ratio] 46.323 kg/m2 46.3 23 kg/m2 eCW1 ([facility]) Body height 66 [in_i] 66 [in_i] eCW1 ([facility]) Body weight 287 [lb_av] 287 [lb_av] eCW1 ([facility]) Diastolic blood pressure 72 mm[Hg] 72 mm[Hg] eCW1 ([facility]) Systolic blood pressure 124 mm[Hg] 124 mm[Hg] e CW1 ([facility]) Body mass index (BMI) [Ratio] 46.162 kg/m2 46.1 62 kg/m2 W1 ([facility]) Body height 66 [in_i] 66 [in_i] eCW1 ([facility]) Body weight 129.73 kg 129.73 kg eCW1 ([facility]) Body weight 286 [lb_av] 286 [lb_av] eCW1 ([facility]) Diastolic blood pressure 0 mm[Hg] Normal (applies to non-numeric results) 0 mm[Hg] [facility] ([facility]) Systolic blood pressure 0 mm[Hg] Normal (applies t o non-numeric results) 0 mm[Hg] [facility] ([facility]) Body mass index (BMI) [Ratio] 0.00 kg/m2 No rmal (applies to non-numeric results) 0.00 kg/m2 [facility] ([facility]) Body weight Measured 0.00 lbs Normal (applies to n on-numeric results) 0.[address] [facility] ([facility]) Body height 0.00 in Normal (applies to non-numeric resu lts) 0.[address] [facility] ([facility]) Diastolic blood pressure 76 mm[Hg] 76 mm[Hg] eCW1 ([facility]) Systolic blood pressure 110 mm[Hg] 110 mm[Hg] e CW1 ([facility]) Body mass index (BMI) [Ratio] 45.839 kg/m2 45.8 39 kg/m2 W1 ([facility]) Body height 66 [in_i] 66 [in_i] eCW1 ([facility]) Body weight 284.0 [lb_av] 284.0 [lb_av] eCW1 ([facility]) Diastolic blood pressure 0 mm[Hg] Normal (applies to non-numeric results) 0 mm[Hg] [facility] ([facility]) Systolic blood pressure 0 mm[Hg] Normal (applies t o non-numeric results) 0 mm[Hg] [facility] ([facility]) Body mass index (BMI) [Ratio] 0.00 kg/m2 No rmal (applies to non-numeric results) 0.00 kg/m2 [facility] ([facility]) Body weight Measured 0.00 lbs Normal (applies to n on-numeric results) 0.00 lbs [facility] ([facility]) Body height 0.00 in Normal (applies to non-numeric resu lts) 0.00 in [facility] ([facility]) Diastolic blood pressure 0 mm[Hg] Normal (applies to non-numeric results) 0 mm[Hg] [facility] ([facility]) Systolic blood pressure 0 mm[Hg] Normal (applies t o non-numeric results) 0 mm[Hg] [facility] ([facility]) Body mass index (BMI) [Ratio] 0.00 kg/m2 No rmal (applies to non-numeric results) 0.00 kg/m2 [facility] ([facility]) Body weight Measured 0.00 lbs Normal (applies to n on-numeric results) 0.00 lbs [facility] ([facility]) Body height 0.00 in Normal (applies to non-numeric resu lts) 0.00 in [facility] ([facility]) Diastolic blood pressure 0 mm[Hg] Normal (applies to non-numeric results) 0 mm[Hg] [facility] ([facility]) Systolic blood pressure 0 mm[Hg] Normal (applies t o non-numeric results) 0 mm[Hg] [facility] ([facility]) Body mass index (BMI) [Ratio] 0.00 kg/m2 No rmal (applies to non-numeric results) 0.00 kg/m2 [facility] ([facility]) Body weight Measured 0.00 lbs Normal (applies to n on-numeric results) 0.00 lbs [facility] ([facility]) Body height 0.00 in Normal (applies to non-numeric resu lts) 0.[address] [facility] ([facility]) Diastolic blood pressure 0 mm[Hg] Normal (applies to non-numeric results) 0 mm[Hg] [facility] ([facility]) Systolic blood pressure 0 mm[Hg] Normal (applies t o non-numeric results) 0 mm[Hg] [facility] ([facility]) Body mass index (BMI) [Ratio] 0.00 kg/m2 No rmal (applies to non-numeric results) 0.00 kg/m2 [facility] ([facility]) Body weight Measured 0.00 lbs Normal (applies to n on-numeric results) 0.[address] [facility] ([facility]) Body height 0.00 in Normal (applies to non-numeric resu lts) 0.[address] [facility] ([facility]) Body weight 128.369 kg 128.369 kg [facility] ([facility]) Body weight 283.00 [lb_av] 283.00 [lb_av] MEDEN T ([facility]) Oxygen saturation in Arterial blood by Pulse oximetry 98 % 98 % [facility] ([facility]) Respiratory rate 18 /min 18 /min [facility] ( [facility]) Body temperature 97.8 [degF] 97.8 [degF] [facility] ([facility]) Heart rate 64 /min 64 /min [facility] ([facility]) Diastolic blood pressure 82 mm[Hg] 82 mm[Hg] [facility] Systolic blood pressure 134 mm[Hg] 134 mm[Hg] [facility] ([facility]) Diastolic blood pressure 0 mm[Hg] Normal (applies to non-numeric results) 0 mm[Hg] [facility] ([facility]) Systolic blood pressure 0 mm[Hg] Normal (applies t o non-numeric results) 0 mm[Hg] [facility] ([facility]) Body mass index (BMI) [Ratio] 0.00 kg/m2 No rmal (applies to non-numeric results) 0.00 kg/m2 [facility] ([facility]) Body weight Measured 0.00 lbs Normal (applies to n on-numeric results) 0.[address] [facility] ([facility]) Body height 0.00 in Normal (applies to non-numeric resu lts) 0.[address] [facility] ([facility]) Body weight 128.822 kg 128.822 kg [facility] ([facility]) Body weight 284.00 [lb_av] 284.00 [lb_av] MED[facility] T ([facility]) Oxygen saturation in Arterial blood by Pulse oximetry 99 % 99 % [facility] ([facility]) Respiratory rate 16 /min 16 /min [facility] Body temperature 97.6 [degF] 97.6 [degF] [facility] ([facility]) Heart rate 66 /min 66 /min [facility] ([facility]) Diastolic blood pressure 82 mm[Hg] 82 mm[Hg] [facility] ([facility]) Systolic blood pressure 122 mm[Hg] 122 mm[Hg] [facility] ([facility]) Diastolic blood pressure 0 mm[Hg] Normal (applies to non-numeric results) 0 mm[Hg] [facility] ([facility]) Systolic blood pressure 0 mm[Hg] Normal (applies t o non-numeric results) 0 mm[Hg] [facility] ([facility]) Body mass index (BMI) [Ratio] 0.00 kg/m2 No rmal (applies to non-numeric results) 0.00 kg/m2 [facility] ([facility]) Body weight Measured 0.00 lbs Normal (applies to n on-numeric results) 0.[address] [facility] ([facility]) Body height 0.00 in Normal (applies to non-numeric resu lts) 0.[address] [facility] ([facility]) Diastolic blood pressure 0 mm[Hg] Normal (applies to non-numeric results) 0 mm[Hg] [facility] ([facility]) Systolic blood pressure 0 mm[Hg] Normal (applies t o non-numeric results) 0 mm[Hg] [facility] ([facility]) Body mass index (BMI) [Ratio] 0.00 kg/m2 No rmal (applies to non-numeric results) 0.00 kg/m2 [facility] ([facility]) Body weight Measured 0.00 lbs Normal (applies to n on-numeric results) 0.00 lbs [facility] ([facility]) Body height 0.00 in Normal (applies to non-numeric resu lts) 0.00 in [facility] ([facility]) Diastolic blood pressure 0 mm[Hg] Normal (applies to non-numeric results) 0 mm[Hg] [facility] ([facility]) Systolic blood pressure 0 mm[Hg] Normal (applies t o non-numeric results) 0 mm[Hg] [facility] ([facility]) Body mass index (BMI) [Ratio] 0.00 kg/m2 No rmal (applies to non-numeric results) 0.00 kg/m2 [facility] ([facility]) Body weight Measured 0.00 lbs Normal (applies to n on-numeric results) 0.00 lbs [facility] ([facility]) Body height 0.00 in Normal (applies to non-numeric resu lts) 0.00 in [facility] ([facility]) Diastolic blood pressure 82 mm[Hg] 82 mm[Hg] eCW1 ([facility]) Systolic blood pressure 128 mm[Hg] 128 mm[Hg] e CW1 ([facility]) Body temperature 97.8 [degF] 97.8 [degF] eCW1 ( [facility]) Respiratory rate 18 /min 18 /min eCW1 ([facility]) Heart rate 87 /min 87 /min eCW1 ([facility]) Body mass index (BMI) [Ratio] 45.74 kg/m2 45.74 kg/m2 eCW1 ([facility]) Body height 66 [in_us] 66 [in_us] eCW1 ([facility]) Body weight Measured 283.4 [lb_av] 283.4 [lb_av ] eCW1 ([facility]) Body weight 126.101 kg 126.101 kg [facility] ([facility]) Body weight 278.00 [lb_av] 278.00 [lb_av] MEDEN T ([facility]) appox unable to get on scale today Oxygen saturation in Arterial blood by Pulse oximetry 97 % 97 % [facility] ([facility]) Respiratory rate 18 /min 18 /min [facility] ( [facility]) Body temperature 98.6 [degF] 98.6 [degF] [facility] ([facility]) Heart rate 86 /min 86 /min [facility] ([facility]) Diastolic blood pressure 80 mm[Hg] 80 mm[Hg] [facility] ([facility]) Systolic blood pressure 130 mm[Hg] 130 mm[Hg] [facility] ([facility]) Body surface area 2.30 m2 2.30 m2 [facility] ([facility]) Body mass index (BMI) [Ratio] 44.9 kg/m2 44.9 k g/m2 [facility] Body height 66 [in_i] 66 [in_i] [facility] ([facility]) 5'6" Body height 66 [in_i] 66 [in_i] [facility] ([facility]) 5'6" Body weight 126.214 kg 126.214 kg [facility] ([facility]) Body weight 278.25 [lb_av] 278.25 [lb_av] [facility] T ([facility]) Oxygen saturation in Arterial blood by Pulse oximetry 99 % 99 % [facility] ([facility]) Respiratory rate 16 /min 16 /min [facility] ( [facility]) Body temperature 97.1 [degF] 97.1 [degF] [facility] ([facility]) Heart rate 68 /min 68 /min [facility] ([facility]) Diastolic blood pressure 78 mm[Hg] 78 mm[Hg] [facility] ([facility]) Systolic blood pressure 120 mm[Hg] 120 mm[Hg] M [facility] ([facility]) Body surface area 2.30 m2 2.30 m2 [facility] ([facility]) Body mass index (BMI) [Ratio] 44.9 kg/m2 44.9 k g/m2 [facility] ([facility]) Diastolic blood pressure 0 mm[Hg] Normal (applies to non-numeric results) 0 mm[Hg] [facility] ([facility]) Systolic blood pressure 0 mm[Hg] Normal (applies t o non-numeric results) 0 mm[Hg] [facility] ([facility]) Body mass index (BMI) [Ratio] 0.00 kg/m2 No rmal (applies to non-numeric results) 0.00 kg/m2 [facility] ([facility]) Body weight Measured 0.00 lbs Normal (applies to n on-numeric results) 0.[address] [facility] ([facility]) Body height 0.00 in Normal (applies to non-numeric resu lts) 0.[address] [facility] ([facility]) ID Date Data Source [id number] 03/02/2020 10:20:45 AM EST [facility] Name Value Range Interpretation Code Description Data Source(s) TRANSFER FROM [facility] Patient Treatment Plan of Care Planned Activity Planned Date Details Description Data Source (s) Sumatriptan 100 MG Oral Tablet 04/04/2020 12:00:00 AM EST eCW1 ([facility]) Metronidazole 500 MG Oral Tablet 03/10/2020 12:00:00 AM EST eCW1 ([facility]) Metronidazole 500 MG Oral Tablet 03/10/2020 12:00:00 AM EST eCW1 ([facility]) Acetaminophen 325 MG / butalbital 50 MG / Caffeine 40 MG Oral Capsule [[facility]] 02/28/2020 12:00:00 AM EST eCW1 ([facility]) Acetaminophen 325 MG / butalbital 50 MG / Caffeine 40 MG Oral Capsule [[facility]] 02/28/2020 12:00:00 AM EST eCW1 ([facility])
[2020-04-23] MEDS ORDERED: KETOROLAC 30 MG/ML 1ML VIAL IV ONE (18:30)
--- NOTE | 2020-04-23 18:49 | REPVR ---
PROCEDURE INFORMATION: Exam: CT Abdomen And Pelvis Without Contrast Exam date and time: 04/23/2020 6:30 PM Age: 39 years old Clinical indication: Abdominal pain; Flank; Right; Additional info: Right flank/abd pain TECHNIQUE: Imaging protocol: Computed tomography of the abdomen and pelvis without contrast. Radiation optimization: All CT scans at this facility use at least one of these dose optimization techniques: automated exposure control; mA and/or kV adjustment per patient size (includes targeted exams where dose is matched to clinical indication); or iterative reconstruction. COMPARISON: CT ABD/PEL W/IV CONTRAST ONLY 10/28/2018 10:17 PM FINDINGS: Liver: Normal. No mass. Gallbladder and bile ducts: There has been a cholecystectomy. Pancreas: Normal. No ductal dilation. Spleen: Normal. No splenomegaly. Adrenal glands: Normal. No mass. Kidneys and ureters: Normal. No hydronephrosis. Stomach and bowel: There is increased feces throughout the colon consistent with constipation. Appendix: The appendix is within normal limits. There is no appendiceal enlargement, periappendiceal inflammatory changes or abscess. Intraperitoneal space: Unremarkable. No free air. No significant fluid collection. Vasculature: Unremarkable. No abdominal aortic aneurysm. Lymph nodes: Unremarkable. No enlarged lymph nodes. Urinary bladder: Unremarkable as visualized. Reproductive: Unremarkable as visualized. Bones/joints: Moderate central spinal stenosis L3-L4 and moderate to severe central spinal stenosis L4-L5. Soft tissues: Unremarkable. IMPRESSION: 1. There has been a cholecystectomy. 2. There is increased feces throughout the colon consistent with constipation. 3. The appendix is within normal limits. There is no appendiceal enlargement, periappendiceal inflammatory changes or abscess. Electronically signed by: Butch Maza On 04/23/2020 18:49:13 PM
[2020-04-23 19:12] LABS: BASO # 0.1 10^3/uL (0.0-0.2); BASO % 0.8 % (0.0-1.0); EOS # 0.8 10^3/uL (0.0-0.5); EOS % 8.1 % (0.0-3.0); HEMATOCRIT 40.4 % (36.0-47.0); HEMOGLOBIN 13.2 g/dl (12.0-15.5); LYMPH # 2.8 10^3/uL (1.5-5.0); MEAN CORPUSCULAR HEMOGLOBIN 29.7 pg (27.0-33.0); MEAN CORPUSCULAR HGB CONC 32.7 g/dl (32.0-36.5); MONO # 0.5 10^3/uL (0.0-0.8); MONO % 5.4 % (2.0-8.0); NEUTROPHILS # 5.3 10^3/uL (1.5-8.5); NEUTROPHILS % 56.5 % (36.0-66.0); PLATELET COUNT, AUTOMATED 294 10^3/uL (150-450); RED BLOOD COUNT 4.44 10^6/uL (4.00-5.40); WHITE BLOOD COUNT 9.5 10^3/uL (4.0-10.0)
[2020-04-23 19:38] LABS: ALBUMIN 3.2 GM/DL (3.2-5.2); ALT/SGPT 24 U/L (12-78); BILIRUBIN,DIRECT < 0.1 MG/DL (0.0-0.2); BILIRUBIN,TOTAL 0.2 MG/DL (0.2-1.0); LIPASE 194 U/L (73-393); TOTAL PROTEIN 7.4 GM/DL (6.4-8.2)
--- OUTSIDE RECORDS SUMMARY | 2020-04-23 19:48 | CCD ---
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 Role Phone Bryan COON MD Unavailable [...] MANZO Unavailable Unavailable JAYMIEBryan MD Unavailable Unavailable JAYIMEBryan MD Unavailable Unavailable JAYMIEBryan MD Unavailable Unavailable [...] Unavailable Unavailable CAITLIN CAMARGO MD Unavailable Unavailable CIATLIN CAMARGO MD Unavailable Unavailable CAITLIN CAMARGO MD [...] Manohar PA-C Unavailable Unavailable JOVANNI, H EZEQUIEL CAFETERIA CASHIER Unavailable Unavailable JOVANNI, H EZEQUIEL CAFETERIA CASHIER Unavailable Unavailable JOVANNI, H EZEQUIEL CAFETERIA CASHIER Unavailable Unavailable JOVANNI, H EZEQUIEL CAFETERIA CASHIER Unavailable Unavailable JOVANNI, H EZEQUIEL CAFETERIA CASHIER Unavailable Unavailable JOVANNI, H EZEQUIEL CAFETERIA CASHIER Unavailable Unavailable JOVANNI, H EZEQUIEL CAFETERIA CASHIER Unavailable Unavailable JOVANNI, H EZEQUIEL CAFETERIA CASHIER Unavailable Unavailable KIM RIVERA MD Unavailable Unavailable [...] Tomaiuoli, GEORGIE Lilo ANP-C Unavailable [phone] iDegouoashvin, GEORGIE Lilo ANP-C Unavailable [phone] Diegouoli, [...] Unavailable Dean Talbert MD Unavailable Unavailable Dean Talbret MD Unavailable Unavailable Dean Talbert MD Unavailable [...] is protected by Article 27-F of the [facility] Public Health law. If you continue you may have access to information: Regarding HIV / AIDS; Provided by facilities licensed or operated by the [facility] Office of Mental Health; or Provided by the [facility] Office for People With Developmental Disabilities. If such information is present, then the following [facility] mandated warning applies: This information has [...] law may result in a fine or shelter sentence or both. A general authorization for the release of medical or other information is NOT sufficient authorization for further disc losure. Allergies and Adverse Reactions Type Description Substance Reaction Status Data Source(s ) Propensity to adverse reactions to substance nkda 24 HR Bupropion Hydrochloride 150 MG Extended Release Oral Tablet Active Accu [facility] ([facility]) BRANDNAME ULTRAM ULTRAM HIVES [facility] BRANDNAME NEURONTIN NEURONTIN [facility] Food allergy SEAFOOD SEAFOOD SWOLLEN THROAT [facility] Drug allergy ATENOLOL ATENOLOL [facility] Drug allergy AMITRIPTYLINE AMITRIPTYLINE ANAPHYLAXIS VOMITING [facility] Drug allergy NORTRIPTYLINE NORTRIPTYLINE [facility] Drug allergy Gabapentin gabapentin Hives Active eCW1 ([facility]) Drug allergy Amitriptyline HCl Amitriptyline Hives Active eC W1 ([facility]) Drug allergy Risperidone Risperidone Hives Active eCW1 ([facility]) Drug allergy Nortriptyline HCl Nortriptyline Hives Active eC W1 ([facility]) Drug allergy Ziprasidone HCl ziprasidone Hives Active eCW1 ( [facility]) Drug allergy atenolol 100 Drug allergy Hives Active eCW1 ([facility]) Drug allergy Tramadol HCl Tramadol Hives Active eCW1 ([facility]) Ultram Ultram tramadol hydrochloride 50 MG Oral Tablet [Ultra m] Hives Active eCW1 ([facility]) Sea Food Sea Food Sea Food Anaphylaxis Active eCW1 ([facility]) Cyclobenzaprine HCl Cyclobenzaprine HCl Cyclobenzaprine HCl Hives Active eCW1 ([facility]) Flexeril Flexeril Flexeril Hives Active eCW1 ([facility]) rispererdol rispererdol rispererdol dizzy Active eCW1 ([facility]) Geodon Geodon ziprasidone 20 MG/ML Injectable Solution [Geodon] Paranoid Active eCW1 ([facility]) seafood, fish seafood, fish seafood, fish Angioedema Active eCW1 ([facility]) Family History Family Member Name Family Member Gender Family Member Status Date o f Status Description Data Source(s) Unknown Male Problem MEDENT ([facility]) Unknown Male Problem MEDENT ([facility] ) Encounters Encounter Providers Location Date Indications Data Source(s ) Extended Individual Psychotherapy - 45 min Attender: Ericka Mcguireus [facility] 04/11/2020 11:00:00 AM EST - 04/11/2020 11:00:00 AM EST [facility] ([facility]) Attender: Ericka Miguel Angel 04/11/2020 12:00:00 AM EST [facility] ([facility]) (WC COB) WCenter Complicated OB [address] [place] [address] 03/31/2020 12:00:00 AM EST eCW1 ([facility]) Extended Individual Psychotherapy - 45 min Attender: Ericka Michelle [facility] 03/24/2020 02:00:00 AM EST - 03/24/2020 02:00:00 AM EST [facility] ([facility]) Attender: Ericka Michelle 03/24/2020 12:00:00 AM EST [facility] ([facility]) ( ESTOB) WCenter Est OB [address] [place] [address] 03/23/2020 12:00:00 AM EST eCW1 ([facility]) Outpatient Attender: EZEQUIEL TELLEZ NP [facility] Eliezer lenz 03/21/2020 11:00:00 AM EST - 03/21/2020 11:00:00 AM EST [facility] ([facility]) Unknown [address] [facility] [address] 03/21/2020 12:00:00 AM EST eCW1 ([facility]) Attender: EZEQUIEL TELLEZ NP 03/21/2020 12:00:00 AM EST [facility] ([facility]) Extended Individual Psychotherapy - 45 min Attender: Ericka Mcguireus [facility] 03/17/2020 11:00:00 AM EST - 03/17/2020 11:00:00 AM EST [facility] Attender: Ericka Miguel Angel 03/17/2020 12:00:00 AM EST [facility] ([facility]) (WC ESTOB) WCenter Est OB [address] [place] [address] 03/16/2020 12:00:00 AM EST eCW1 ([facility]) Unknown [address] [facility] [address] 03/10/2020 12:00:00 AM EST eCW1 ([facility]) (WC ESTOB) WCenter Est OB [address] [place] [address] 03/08/2020 12:00:00 AM EST eCW1 ([facility]) Extended Individual Psychotherapy - 45 min Attender: Ericka Miguel Angel [facility] 03/06/2020 01:00:00 AM EST - 03/06/2020 01:00:00 AM EST [facility] Attender: Ericka Michelle 03/06/2020 12:00:00 AM EST [facility] ([facility]) Outpatient Referrer: PROVIDER SYSTEM IN 03/02/2020 1 0:20:00 AM EST shingles with occular involvement [facility] shingles with occular involvement Unknown [address] [facility] [address] 02/28/2020 12:00:00 AM EST eCW1 ([facility]) (WC [place]) enter Nurse Visit [address] [place] [address] 02/28/2020 12:00:00 AM EST eCW1 ([facility]) (WC ESTOB) WCenter Est OB [address] [place] [address] 02/21/2020 12:00:00 AM EST eCW1 ([facility]) Extended Individual Psychotherapy - 45 min Attender: Ericka Michelle [facility] 02/11/2020 10:00:00 AM EST - 02/11/2020 10:00:00 AM EST [facility] ([facility]) Attender: Ericka Michelle 02/11/2020 12:00:00 AM EST [facility] ([facility]) Outpatient Attender: EZEQUIEL TELLEZ NP [facility] Eliezer lenz 01/25/2020 10:00:00 AM EST - 01/25/2020 10:00:00 AM EST [facility] ([facility]) Extended Individual Psychotherapy - 45 min Attender: Ericka Miguel Angel [facility] 01/25/2020 09:00:00 AM EST - 01/25/2020 09:00:00 AM EST [facility] ([facility]) Attender: EZEQUIEL TELLEZ NP 01/25/2020 12:00:00 AM EST [facility] ([facility]) Attender: Ericka Michelle 01/25/2020 12:00:00 AM EST [facility] ([facility]) ( ESTOB) WCenter Est OB [address] [place] [address] 01/24/2020 12:00:00 AM EST eCW1 ([facility]) Unknown [address] [facility] [address] 01/21/2020 12:00:00 AM EST eCW1 ([facility]) Extended Individual Psychotherapy - 45 min Attender: Ericka Michelle [facility] 01/10/2020 10:00:00 AM EST - 01/10/2020 10:00:00 AM EST [facility] ([facility]) Attender: Ericka Michelle 01/10/2020 12:00:00 AM EST [facility] ([facility]) ( ESTOB) WCenter Est OB [address] [place] [address] 01/07/2020 12:00:00 AM EST eCW1 ([facility]) Outpatient Attender: EZEQUIEL TELLEZ NP [facility] Eliezer lenz 12/30/2019 10:30:00 AM EDT - 12/30/2019 10:30:00 AM EDT [facility] ([facility]) Attender: EZEQUIEL TELLEZ NP 12/30/2019 12:00:00 AM EDT [facility] ([facility]) Brief Individual Psychotherapy - 30 min Attender: Ericka smith [facility] 12/16/2019 11:00:00 AM EDT - 12/16/2019 11:00:00 AM EDT [facility] ([facility]) Attender: Ericka Michelle 12/16/2019 12:00:00 AM EDT [facility] ([facility]) ( ESTOB) enter Est OB [address] [place] [address] 12/08/2019 12:00:00 AM EDT eCW1 ([facility]) Outpatient Attender: EZEQUIEL TELLEZ NP [facility] Eliezer lenz 12/02/2019 11:15:00 AM EDT - 12/02/2019 11:15:00 AM EDT [facility] ([facility]) Attender: EZEQUIEL TELLEZ NP 12/02/2019 12:00:00 AM EDT [facility] ([facility]) Extended Individual Psychotherapy - 45 min Attender: Ericka Mcguireus [facility] 11/30/2019 11:00:00 AM EDT - 11/30/2019 11:00:00 AM EDT [facility] ([facility]) Attender: Ericka Michelle 11/30/2019 12:00:00 AM EDT [facility] ([facility]) Outpatient Attender: Mirtha Manley MDReferrer: CAITLIN Lenz MD SJJon.ANDREWS-[email or web address] 11/11/2019 12:00:00 AM EDT [facility] Extended Individual Psychotherapy - 45 min Attender: Ericka Miguel Angel [facility] 11/09/2019 11:00:00 AM EDT - 11/09/2019 11:00:00 AM EDT [facility] ([facility]) Attender: Ericka Michelle 11/09/2019 12:00:00 AM EDT [facility] ([facility]) Outpatient Attender: EZEQUIEL TELLEZ NP [facility] delfin 11/04/2019 09:30:00 AM EDT - 11/04/2019 09:30:00 AM EDT [facility] ([facility]) Attender: EZEQUIEL TELLEZ NP 11/04/2019 12:00:00 AM EDT [facility] ([facility]) [id number]" Psychotherapy Attender: Ericka Michelle [facility] 09/02/2019 10:00:00 AM EDT - 09/02/2019 10:00:00 AM EDT [facility] ([facility]) Attender: Ericka Michelle 09/02/2019 12:00:00 AM EDT [facility] ([facility]) [id number]"Psychotherapy Attender: Ericka Miguel Angel [facility] 08/20/2019 09:00:00 AM EDT - 08/20/2019 09:00:00 AM EDT [facility] ([facility]) Attender: Ericka Michelle 08/20/2019 12:00:00 AM EDT [facility] ([facility]) Outpatient Attender: EZEQUIEL TELLEZ NP [facility] 08/17/2019 01:00:00 AM EDT - 08/17/2019 01:00:00 AM EDT [facility] ([facility]) Attender: EZEQUIEL TELLEZ NP 08/17/2019 12:00:00 AM EDT [facility] ([facility]) [id number]"Psychotherapy Attender: [facility]ka [facility] 08/06/2019 08:00:00 AM EDT - 08/06/2019 08:00:00 AM EDT [facility] ([facility]) Attender: Ericka Michelle 08/06/2019 12:00:00 AM EDT [facility] ([facility]) Outpatient Attender: WIL MOULTON KARSTEN 08/04/2019 11:00:02 AM EDT [facility] Outpatient Attender: CAITLIN CAMARGO MDConsultant: CAITLIN Lenz MD 07/29/2019 04:25:00 PM EDT - 07/29/2019 04:25:00 PM [facility] 09:00:00 AM EDT - 07/23/2019 09:00:00 AM EDT [facility] ([facility]) Attender: Ericka Mcguireus 07/23/2019 12:00:00 AM EDT [facility] ([facility]) Outpatient Attender: CAITLIN CAMARGO MDConsultant: CAITLIN Lenz MD 07/21/2019 02:00:00 PM EDT - 07/21/2019 02:00:00 PM EDT [facility] Outpatient Attender: EZEQUIEL TELLEZ NP [facility] 07/20/2019 09:30:00 AM EDT - 07/20/2019 09:30:00 AM EDT [facility] ([facility]) Attender: EZEQUIEL TELLEZ NP 07/20/2019 12:00:00 AM EDT [facility] ([facility]) Outpatient Attender: Dean Talbert MD [facility] at [facility] 07/14/2019 12:00:00 PM EDT [facility] ([facility]) Outpatient Attender: CAITLIN CAMARGO MDConsultant: CAITLIN Lenz MD 07/06/2019 02:37:00 PM EDT - 07/06/2019 02:37:00 PM EDT [facility] Outpatient Referrer: JOHN COON MD 07/06/2019 04:48:00 AM EDT [facility] [id number]"Psychotherapy Attender: Ericka Michelle [facility] 07/06/2019 03:30:00 AM EDT - 07/06/2019 03:30:00 AM EDT [facility] ([facility]) Attender: Ericka Michelle 07/06/2019 12:00:00 AM EDT [facility] ([facility]) [id number]"Psychotherapy Attender: Ericka Michelle [facility] 06/24/2019 10:00:00 AM EDT - 06/24/2019 10:00:00 AM EDT [facility] ([facility]) Attender: Erickamiller Mcguireus 06/24/2019 12:00:00 AM EDT [facility] ([facility]) Outpatient Attender: CAITLIN CAMARGO MDConsultant: CAITLIN Lenz MD 06/23/2019 01:18:00 PM EDT - 06/23/2019 01:18:00 PM EDT [facility] Outpatient Att[facility]: [facility] 06/22/2019 08:17:00 AM EDT [facility] Outpatient Attender: EZEQUIEL TELLEZ NP [facility] Eliezer lenz 06/14/2019 01:00:00 AM EDT - 06/14/2019 01:00:00 AM EDT [facility] ([facility]) Attender: EZEQUIEL TELLEZ NP 06/14/2019 12:00:00 AM EDT [facility] ([facility]) Attender: Ericka Miguel Angel 06/14/2019 12:00:00 AM EDT [facility] ([facility]) [id number]"Psychotherapy Attender: Ericka Michelle [facility] 06/10/2019 09:00:00 AM EDT - 06/10/2019 09:00:00 AM EDT [facility] ([facility]) [id number]"Psychotherapy Attender: Eircka Michelle [facility] 05/27/2019 11:00:00 AM EDT - 05/27/2019 11:00:00 AM EDT [facility] ([facility]) Attender: Ericka Miguel Angel 05/27/2019 12:00:00 AM EDT [facility] ([facility]) Outpatient Attender: Reina Wilson MDConsultant: CAITLIN CAMARGO MD 05/26/2019 12:40:00 PM EDT - 05/26/2019 12:40:00 PM EDT [facility] [id number]"Psychotherapy Attender: EZEQUIEL TELLEZ NP [facility] 05/24/2019 10:30:00 AM EDT - 05/24/2019 10:30:00 AM EDT [facility] ([facility]) Attender: EZEQUIEL TELLEZ NP 05/24/2019 12:00:00 AM EDT [facility] ([facility]) Outpatient Attender: [facility] 05/18/2019 08:19:01 AM EDT [facility] Outpatient Attender: [facility] 05/12/2019 10:23:01 AM EDT [facility] Extended Individual Psychotherapy - 45 min Attender: Ericka Miguel Angel [facility] 05/12/2019 01:45:00 AM EDT - 05/12/2019 01:45:00 AM EDT [facility] ([facility]) Attender: Ericka Michelle 05/12/2019 12:00:00 AM EDT [facility] ([facility]) Extended Individual Psychotherapy - 45 min Attender: Ericka Miguel Angel [facility] 04/27/2019 11:45:00 AM EST - 04/27/2019 11:45:00 AM EST [facility] ([facility]) Outpatient Attender: EZEQUIEL TELLEZ NP [facility] Eliezer delfin 04/27/2019 01:00:00 AM EST - 04/27/2019 01:00:00 AM EST [facility] ([facility]) Attender: EZEQUIEL TELLEZ NP 04/27/2019 12:00:00 AM EST [facility] ([facility]) Attender: Ericka Michelle 04/27/2019 12:00:00 AM EST [facility] ([facility]) Outpatient Attender: Ericka Michelle [facility] 10:00:00 AM EST - 04/23/2019 10:00:00 AM EST [facility] Attender: Ericka Michelle 04/23/2019 12:00:00 AM EST [facility] ([facility]) Outpatient Attender: EZEQUIEL TELLEZ CAFETERIA CASHIER [facility] Eliezer lenz 04/14/2019 10:30:00 AM EST - 04/14/2019 10:30:00 AM EST [facility] ([facility]) Attender: EZEQUIEL TELLEZ NP 04/14/2019 12:00:00 AM EST [facility] ([facility]) Outpatient Attender: BERNARDO RIVERA MDReferrer: CAITLIN CAMARGO MD 04/12/2019 12:00:00 AM [facility] [address] [place] [id number] 04/06/2019 12:00:00 AM EST eCW1 ([facility]) Extended Individual Psychotherapy - 45 min Attender: Erickamiller Michelle [facility] Zach[facility] 03/30/2019 11:00:00 AM EST - 03/30/2019 11:00:00 AM EST [facility] ([facility]) Attender: Ericka Michelle 03/30/2019 12:00:00 AM EST [facility] ([facility]) Outpatient Referrer: JOHN COON MD 03/26/2019 03:17:00 PM [facility] Emergency Attender: Manohar Lu PA-CConsultant: CAITLIN VAZQUEZ MD 03/24/2019 04:07:00 PM EST - 03/24/2019 05:41:00 PM [facility] Patient discharged. Outpatient Attender: CAITLIN CAMARGO MDConsultant: CAITLIN Lenz MD 03/24/2019 03:10:00 PM EST - 03/24/2019 03:10:00 PM [facility] Outpatient Attender: CAITLIN CAMARGO MD Family Practice 03/24/2019 0 2:00:00 PM EST MEDENT ([facility]) Outpatient Attender: Lilo Jordan ANP-CReferrer: CRISTIAN CAMARGO MD 03/24/2019 12:00:00 AM [facility] Outpatient Attender: CAITLIN CAMARGO MDConsultant: CAITLIN Lenz MD 03/17/2019 09:53:00 AM EST - 03/17/2019 09:53:00 AM [facility] Outpatient Attender: CAITLIN CAMARGO MD Family Practice 03/17/2019 0 9:00:00 AM EST MEDENT ([facility]) Extended Individual Psychotherapy - 45 min Attender: Ericka Michelle [facility] 03/16/2019 03:00:00 AM EST - 03/16/2019 03:00:00 AM EST [facility] ([facility]) Attender: Ericka Michelle 03/16/2019 12:00:00 AM EST [facility] ([facility]) Outpatient Attender: EZEQUIEL TELLEZ NP [facility] Eliezer l 03/10/2019 11:30:00 AM EST - 03/10/2019 11:30:00 AM EST [facility] ([facility]) Attender: EZEQUIEL TELLEZ NP 03/10/2019 12:00:00 AM EST [facility] ([facility]) Outpatient Referrer: JOHN COON MD 03/07/2019 04:11:00 PM EST [facility] Extended Individual Psychotherapy - 45 min Attender: Ericka Michelle [facility] 02/26/2019 02:00:00 AM EST - 02/26/2019 02:00:00 AM EST [facility] ([facility]) Attender: Ericka Michelle 02/26/2019 12:00:00 AM EST [facility] ([facility]) Outpatient Attender: CAITLIN CAMARGO MDConsultant: CAITLIN Lenz MD 02/22/2019 01:11:00 PM EST - 02/22/2019 01:11:00 PM [facility] Outpatient Attender: CAITLIN CAMARGO MDConsultant: CAITLIN Lenz MD 02/15/2019 01:00:00 PM EST - 02/15/2019 01:00:00 PM [facility] Functional Status Medications Medication Brand Name Start Date Product Form Dose Route Admi nistrative Instructions Pharmacy Instructions Status Indications Reaction Description Data Source(s) Sumatriptan 100 MG Oral Tablet Sumatriptan Succinate 1 00 MG Sumatriptan Succinate 100 MG 04/04/2020 12:00:00 AM EST a ctive Sumatriptan Succinate 100 MG eCW1 ([facility]) Metronidazole 500 MG Oral Tablet Metronidazole 500 MG 2020 12:00:00 AM EST 1.0 {tablet} active Metronidazo le 500 MG eCW1 ([facility]) Metronidazole 500 MG Oral Tablet Metronidazole 500 MG 2020 12:00:00 AM EST 1.0 {tablet} active Metronidazo le 500 MG eCW1 ([facility]) Metronidazole 500 MG Oral Tablet Metronidazole 500 MG 2020 12:00:00 AM EST 1.0 {tablet} suspended Metronid azole 500 MG eCW1 ([facility]) Metronidazole 500 MG Oral Tablet Metronidazole 500 MG 2020 12:00:00 AM EST 1.0 {tablet} active Metronidazo le 500 MG eCW1 ([facility]) Metronidazole 500 MG Oral Tablet Metronidazole 500 MG 2020 12:00:00 AM EST 1.0 {tablet} suspended Metronid azole 500 MG eCW1 ([facility]) Acetaminophen 325 MG / butalbital 50 MG / Caffeine 40 MG Oral Capsule [Esgic] Esgic 50-325-40 MG Esgic 50-325-40 MG 02/28/2020 12:00:00 AM EST active Esgic 50-325-40 MG eCW1 ([facility]) Acetaminophen 325 MG / butalbital 50 MG / Caffeine 40 MG Oral Capsule [Esgic] Esgic 50-325-40 MG Esgic 50-325-40 MG 02/28/2020 12:00:00 AM EST active Esgic 50-325-40 MG eCW1 ([facility]) Acetaminophen 325 MG / butalbital 50 MG / Caffeine 40 MG Oral Capsule [Esgic] Esgic 50-325-40 MG Esgic 50-325-40 MG 02/28/2020 12:00:00 AM EST active Esgic 50-325-40 MG eCW1 ([facility]) Acetaminophen 325 MG / butalbital 50 MG / Caffeine 40 MG Oral Capsule [Esgic] Esgic 50-325-40 MG Esgic 50-325-40 MG 02/28/2020 12:00:00 AM EST active E[facility]ic 50-325-40 MG eCW1 ([facility]) Acetaminophen 325 MG / butalbital 50 MG / Caffeine 40 MG Oral Capsule [Esgic] Esgic 50-325-40 MG Esgic 50-325-40 MG 02/28/2020 12:00:00 AM EST active E[facility] 50-325-40 MG eCW1 ([facility]) Acetaminophen 325 MG / butalbital 50 MG / Caffeine 40 MG Oral Capsule [Esgic] Esgic 50-325-40 MG Esgic 50-325-40 MG 02/28/2020 12:00:00 AM EST active Esg[facility] 50-325-40 MG eCW1 ([facility]) Acetaminophen 325 MG / butalbital 50 MG / Caffeine 40 MG Oral Capsule [Esgic] Esgic 50-325-40 MG Esgic 50-325-40 MG 02/28/2020 12:00:00 AM EST active E[facility] 50-325-40 MG eCW1 ([facility]) lamotrigine 25 MG Oral Tablet lamotrigine 07/20/2019 12:00:00 AM EDT 25 mg by mouth completed [id number] lamotrigine by mouth [id number] 07/1908/19/2019 once a day 30 25 mg tablet [id number] Lela shay Tellez [id number] Nurse Practitioner [facility]) Sumatriptan 100 MG Oral Tablet Sumatriptan Succinate 07/14/2019 12:00:00 AM EDT active MEDENT ( [facility]) Aimovig Aimovig 07/14/2019 12:00:00 AM EDT SUBCUTANEOUS active MEDENT ([facility]) valacyclovir 1000 MG Oral Tablet Valacyclovir HCL 05/26/2019 12:00: 00 AM EDT ORAL completed [facility] ([facility]) Cholecalciferol 1000 UNT Oral Tablet Vitamin D 05/26/2019 12:00:00 A M EDT ORAL active MEDENT ([facility]) Fluoxetine 20 MG Oral Capsule [Prozac] Prozac 04/27/2019 12:0 0:00 AM EST 20 mg by mouth completed [id number] Prozac by mouth [id number] 2019 once a day 30 20 mg capsule [id number] Ezequiel Tellez [id number] Nurse Practitioner [facility] ([facility]) Divalproex Sodium 125 MG Delayed Release Oral Capsule [Depakote] Depakote Sprinkles 04/27/2019 12:00:00 AM EST 125 mg by mouth comple juliana [id number] Depakote Sprinkles by mouth [id number] 04/27/2019 05/27/2019 at bedtime 30 125 mg capsule, delayed rel sprinkle [id number] Ezequiel Tellez [id number] Nurse Practitioner [facility] ([facility] [facility]) Fluoxetine 20 MG Oral Capsule [Prozac] Prozac 04/27/2019 12:0 0:00 AM EST 20 mg by mouth completed [id number] Prozac by mouth [id number] 0 04/27/2019 08/22/2019 once a day 30 20 mg capsule 04907 [id number] Shara Tellez [id number] Nurse Practitioner [facility] ([facility]) Fluoxetine 20 MG Oral Capsule [Prozac] Prozac 04/27/2019 12:0 0:00 AM EST 20 mg by mouth completed [id number] Prozac by mouth [id number] 0 04/27/2019 07/26/2019 once a day 30 20 mg capsule 85084 [id number] Shara Tellez [id number] Nurse Practitioner [facility] ([facility]) Divalproex Sodium 125 MG Delayed Release Oral Capsule [Depakote] Depakote Sprinkles 04/27/2019 12:00:00 AM EST 125 mg by mouth comple juliana [id number] Depakote Sprinkles by mouth [id number] 04/27/2019 05/24/2019 at bedtime 30 125 mg capsule, delayed rel sprinkle 71910 [id number] Ezequiel Tellez [id number] Nurse Practitioner [facility] ([facility]) Fluoxetine 10 MG Oral Capsule [Prozac] Prozac 04/14/2019 12:0 0:00 AM EST 10 mg by mouth completed [id number] Prozac by mouth [id number] 0 04/14/2019 07/13/2019 once a day 30 10 mg capsule 31899 [id number] Lelamay Tellez [id number] Nurse Practitioner [facility] ([facility]) Prazosin 1 MG Oral Capsule prazosin 03/10/2019 12:00:00 AM EST 1 mg by mouth completed [id number] prazosin by mouth [id number] 03/10/201902/2020 at bedtime 30 1 mg capsule 16797 [id number] Ezequiel Leone [id number] Nurse Practitioner [facility] ([facility]) Ibuprofen 600 MG Oral Tablet Ibuprofen 02/23/2019 12:00:00 AM EST ORAL completed [facility] ([facility]) Acetaminophen 250 MG / Aspirin 250 MG / Caffeine 65 MG Oral Tablet [Excedrin] Excedrin Extra Strength 02/15/2019 12:00:00 AM EST completed [facility] ([facility]) Omeprazole 20 MG Delayed Release Oral Capsule Omeprazole 02/15/2019 12:00:00 AM EST ORAL completed [facility] ([facility]) Insurance Providers Payer name Policy type / Coverage type Policy ID Covered republican ID Covered republican's relationship to banda Policy Banda Plan Information [facility] COMMUNITY [facility] [id number] SP [id number] [facility] O [id number] S [id number] [facility] COMMUNITY PLAN MCDO [id number] SP [id number] [facility] COMMUNITY PLAN MCDO [id number] SP [id number] [facility] I [id number] Self [id number] [facility] MEDICAID [id number] Paula [id number] Managed Care - [facility] Community Plan P [id number] S [id number] Medicaid S [id number] S [id number] [facility] COMMUNTY PLAN MC [id number] 18 [id number] [facility] COMMUNITY PLAN XIX [id number] 18 [id number] [facility] COMMUNITY PLAN [id number] 18 [id number] Managed Care - [facility] Community Plan P [id number] S [id number] [facility] AMERICHOICE XIX -HMO [id number] 18 [id number] [facility] COMMUNITY PL[facility] [id number] SP [id number] [facility] AMERICHOICE XIX -HMO [id number] [facility] AMERICHOICE XIX -HMO [id number] 18 [id number] UN[facility] COMMUNITY PLAN XIX [id number] 18 [id number] [facility] COMMUNTY PLAN [id number] 18 [id number] MEDICAID M [id number] Self [id number] [facility] COMMUNITY PLAN MCDHMO [id number] SP [id number] [facility](MCA[facility]) O [id number] S [id number] Managed Care - [facility] Community Plan P [id number] S [id number] [facility] Community Plan Commercial [id number] Self [id number] [facility] Communty Plan Medicaid [id number] Self [id number] [facility] I [id number] Self [id number] Managed Care - Community Plan [facility] P [id number] S [id number] Medicaid S [id number] S [id number] [facility] Community Plan Commercial [id number] Self [id number] [facility] Communty Plan Medicaid [id number] Self [id number] [facility] Community Plan Commercial [id number] Self [id number] [facility] Communty Plan Medicaid [id number] Self [id number] [facility] COMMUNITY PLAN MCDHMO [id number] SP [id number] [facility] Community Plan Commercial [id number] Self [id number] [facility] Communty Plan Medicaid [id number] Self [id number] [facility] Communty Plan Medicaid [id number] Self [id number] [facility] Community Plan Commercial [id number] Self [id number] [facility] Communty Plan Medicaid [id number] Self [id number] [facility] Community Plan Commercial [id number] Self [id number] [facility] COMMUNITY PLAN MCDHMO [id number] SP [id number] [facility] [id number] S [id number] UNAVAILABLE UNAVAILA BLE [facility] [id number] S [id number] [facility] Community Plan Commercial [id number] Self [id number] [facility] Communty Plan Medicaid [id number] Self [id number] UN COMMUNITY PLAN XIX [id number] 18 [id number] [facility] Communty Plan Medicaid [id number] Self [id number] [facility] Community Plan Commercial [id number] Self [id number] [employer] Medigap Part B [id number] Self [id number] [facility] Health Maintenance Organization (HMO) [id number] Self [id number] [facility] [place] [id number] 18 [id number] [facility] COMMUNITY PLAN MCDHMO [id number] SP [id number] [place] Plan Medigap Part B [id number] Self [id number] [facility] Community Plan Commercial [id number] Self [id number] [facility] EMPIRE PLAN HM [id number] 18 [id number] [facility] HM [id number] 18 [id number] [facility](MCAID) O [id number] S [id number] [facility] Medigap Part B [id number] Self [id number] [facility] - Commercial [id number] Self [id number] [facility] [place] [id number] 18 [id number] [facility] COMMUNITY PLAN MCDHMO [id number] SP [id number] [facility] Medigap Part B [id number] Self [id number] [facility] - Commercial [id number] Self [id number] [facility](MCAID) O [id number] S [id number] [facility] COMMUNITY PLAN MCDHMO [id number] SP [id number] UN[facility] AMERICHOICE XIX -HMO [id number] 18 [id number] UN[facility] COMMUNITY PLAN MCDHMO [id number] SP [id number] [facility] O [id number] S [id number] UN[facility] COMMUNITY PLAN MCDHMO [id number] SP [id number] UN[facility] COMMUNITY PLAN MCDHMO [id number] SP [id number] Medicaid S [id number] S [id number] Managed Care - Community Plan [facility] P [id number] S [id number] MEDICAID - CLINIC [id number] UHC I [id number] Self [id number] UNHC AMERICHOICE HMO [id number] 18 [id number] MEDICAID-O/P [id number] 18 [id number] UHC Comm Plan Medicaid F [id number] SELF [id number] [facility] Commercial Self Medicaid S [id number] S [id number] Managed Care - Community Plan [employer] P [id number] S [id number] [facility] P UNAVAILABLE S UNAVAILA BLE Medicaid S [id number] S [id number] [facility] [place] PLAN [id number] SP [id number] [facility] [id number] Problems, Conditions, and Diagnoses Code Display Name Description Problem Type Effective Dates Data Source(s) F14.20 Cocaine dependence, uncomplicated Stimul ant Use Disorder. Severe: Cocaine Condition 04/11/2020 12:00:00 AM EST [facility] ([facility]) F41.1 Generalized anxiety disorder Generalized Anxiety Disor milena Condition 04/11/2020 12:00:00 AM EST [facility] ([facility]) F43.12 Post-traumatic stress disorder, chronic Post-traumatic stress disorder, chronic Condition 04/11/2020 12:00:00 AM EST [facility] ([facility]) Z68.41 Body mass index 40+ - severely obese Bod y mass index (BMI) 40.0-44.9, adult Problem 03/31/2020 12:00:00 AM EST eCW1 ([facility]) O99.213 Obesity complicating , third tr imester Obesity complicating in third trimester Problem 03/23/2020 12:00:00 AM EST eCW1 ([facility]) O99.212 [id number] Obesity complicating in second trimester Problem 12/07/2019 12:00:00 AM EDT eCW1 ([facility]) Z34.80 care Supervision of other normal P roblem 12/07/2019 12:00:00 AM EDT eCW1 ([facility]) M79.7 [id number] Fibromyalgia Problem 04/06/2019 12:00:00 AM EST eCW1 ([facility]) R79.82 [id number] Elevated C-reactive protein (CRP) Prob jessa 04/06/2019 12:00:00 AM EST eCW1 ([facility]) M79.7 [id number] Fibromyalgia Problem 04/06/2019 12:00:00 AM EST eCW1 ([facility]) R79.82 [id number] Elevated C-reactive protein (CRP) Prob jessa 04/06/2019 12:00:00 AM EST eCW1 ([facility]) shingles with occular involvement shingles with occula r involvement Diagnosis 03/02/2020 10:20:00 AM [facility] R07.9 Chest pain, unspecified Chest pain, unspecified Diagno sis 11/11/2019 10:34:12 AM EDT [facility] R0789 Other chest pain Other chest pain Diagnosis 07/29/2019 04 :25:00 PM EDT [facility] R569 Unspecified convulsions Unspecified convulsions Diagno sis 07/29/2019 04:25:00 PM EDT [facility] R945 Abnormal results of liver function studi es Abnormal results of liver function studies Diagnosis 07/29/2019 04:25:00 PM EDT [facility] E669 Obesity, unspecified Obesity, unspecified Diagnosis 06/23/2019 01:18:00 PM EDT [facility] E559 Vitamin D deficiency, unspecified Vitamin D defi ciency, unspecified Diagnosis 06/23/2019 01:18:00 PM EDT [facility] B029 Zoster without complications Zoster without complicati ons Diagnosis 05/26/2019 12:40:00 PM EDT [facility] Y9289 Other specified places as the place of o ccurrence of the external cause Other specified places as the place of occurrence of the external cause Diagnosis 03/24/2019 04:07:00 PM [facility] [id number] Other fall on same level, initial encoun ter Other fall on same level, initial encounter Diagnosis 03/24/2019 04:07:00 PM [facility] [id number] Contusion of lower back and pelvis, init ial encounter Contusion of lower back and pelvis, initial encounter Diagnosis 03/24/2019 04:07:00 PM E [facility] [id number] Unspecified injury of lower back, initia l encounter Unspecified injury of lower back, initial encounter Diagnosis 03/24/2019 04:07:00 PM [facility] H9193 Unspecified hearing loss, bilateral Unspecified hearing loss, bilateral Diagnosis 03/17/2019 09:53:00 AM [facility] M542 Cervicalgia Cervicalgia Diagnosis 03/17/2019 09:53:00 AM [facility] [id number] Strain of muscle, fascia and tendon at n fabiana level, initial encounter Strain of muscle, fascia and tendon at neck level, initial encounter Diagnosis 03/17/2019 09:53:00 AM [facility] Surgeries/Procedures Procedure Description Date Indications Data Source(s) Extended Individual Psychotherapy - 45 min 04/11/2020 12:00:00 AM EST - 04/11/2020 12:00:00 AM EST [facility] ([facility]) Extended Individual Psychotherapy - 45 min 12:00:00 AM EST [facility] ([facility]) NONSTRESS TEST 03/31/2020 12:00:00 AM EST eCW1 ([facility]) Extended Individual Psychotherapy - 45 min 03/24/2020 12:00:00 AM EST - 03/24/2020 12:00:00 AM EST [facility] ([facility]) Extended Individual Psychotherapy - 45 min 12:00:00 AM EST [facility] ([facility]) NONSTRESS TEST 03/23/2020 12:00:00 AM EST eCW1 ([facility]) MHC Telemed E/M Lvl 3--Est pt 03/21/2020 12:00:00 AM EST - 03/21/2020 12:00:00 AM EST [facility] ([facility]) Psychotherapy ADD ON - 30 Minutes 03/21/2020 12:00:00 AM EST [facility] ([facility]) MHC Telemed E/M Lvl 3--Est pt 03/21/2020 12:00:[address] [facility] ([facility]) Extended Individual Psychotherapy - 45 min 03/17/2020 12:00:00 AM EST - 03/17/2020 12:00:00 AM EST [facility] ([facility]) Extended Individual Psychotherapy - 45 min 12:00:00 AM EST [facility] ([facility]) NONSTRESS TEST 03/16/2020 12:00:00 AM EST eCW1 ([facility]) NONSTRESS TEST 03/08/2020 12:00:00 AM EST eCW1 ([facility]) Extended Individual Psychotherapy - 45 min 03/06/2020 12:00:00 AM EST - 03/06/2020 12:00:00 AM EST [facility] ([facility]) Extended Individual Psychotherapy - 45 min 1 12:00:00 AM EST [facility] ([facility]) Nurse Visit Blood Pressure Check 02/28/2020 12:00:00 A M EST eCW1 ([facility]) Extended Individual Psychotherapy - 45 min 02/11/2020 12:00:00 AM EST - 02/11/2020 12:00:00 AM EST [facility] ([facility]) Extended Individual Psychotherapy - 45 min 0 12:00:00 AM EST [facility] ([facility]) OFFICE OUTPATIENT VISIT 15 MINUTES 01/24 12:00:00 AM EST - 01/25/2020 12:00:00 AM EST [facility] ([facility]) OFFICE OUTPATIENT VISIT 15 MINUTES 01/25/2020 12:00:00 AM EST [facility] ([facility]) Extended Individual Psychotherapy - 45 min 01/25/2020 12:00:00 AM EST - 01/25/2020 12:00:00 AM EST [facility] ([facility]) Extended Individual Psychotherapy - 45 min 0 12:00:00 AM EST [facility] ([facility]) Extended Individual Psychotherapy - 45 min 01/10/2020 12:00:00 AM EST - 01/10/2020 12:00:00 AM EST [facility] ([facility]) Extended Individual Psychotherapy - 45 min 0 12:00:00 AM EST [facility] ([facility]) OFFICE OUTPATIENT VISIT 15 MINUTES 12/29 12:00:00 AM EDT - 12/30/2019 12:00:00 AM EDT [facility] ([facility]) OFFICE OUTPATIENT VISIT 15 MINUTES 12/30/2019 12:00:00 AM EDT [facility] ([facility]) Brief Individual Psychotherapy - 30 min 12/16/2019 12:00:00 AM EDT - 12/16/2019 12:00:00 AM EDT [facility] ([facility]) Brief Individual Psychotherapy - 30 min 12/16/2019 12: 00:00 AM EDT [facility] ([facility]) MHC Telemed E/M Lvl 3--Est pt 12/02/2019 12:00:00 AM EDT - 12/02/2019 12:00:00 AM EDT [facility] ([facility]) Psychotherapy ADD ON - 30 Minutes 12/02/2019 12:00:00 AM EDT [facility] ([facility]) MHC Telemed E/M Lvl 3--Est pt 12/02/2019 12:00:00 AM E DT [facility] ([facility]) Extended Individual Psychotherapy - 45 min 11/30/2019 12:00:00 AM EDT - 11/30/2019 12:00:00 AM EDT [facility] ([facility]) Extended Individual Psychotherapy - 45 min 0 12:00:00 AM EDT [facility] ([facility]) Extended Individual Psychotherapy - 45 min 11/09/2019 12:00:00 AM EDT - 11/09/2019 12:00:00 AM EDT [facility] ([facility]) Extended Individual Psychotherapy - 45 min 0 12:00:00 AM EDT [facility] ([facility]) MHC Telemed E/M Lvl 3--Est pt 11/04/2019 12:00:00 AM EDT - 11/04/2019 12:00:00 AM EDT [facility] ([facility]) Psychotherapy ADD ON - 30 Minutes 11/04/2019 12:00:00 AM EDT [facility] ([facility]) MHC Telemed E/M Lvl 3--Est pt 11/04/2019 12:00:00 AM E DT [facility] ([facility]) TEMPMHCTelemed 30" Psychotherapy 020 12:00:00 AM EDT - 09/02/2019 12:00:00 AM EDT [facility] ([facility]) TEMPMHCTelemed 30" Psychotherapy 09/02/2019 12:00:00 A M EDT [facility] ([facility]) [id number]"Psychotherapy 0 12:00:00 AM EDT - 08/20/2019 12:00:00 AM EDT [facility] ([facility]) [id number]"Psychotherapy 08/20/2019 12:00:00 AM EDT [facility] ([facility]) MHC Telemed E/M Lvl 3--Est pt 08/17/2019 12:00:00 AM EDT - 08/17/2019 12:00:00 AM EDT [facility] ([facility]) Psychotherapy ADD ON - 30 Minutes 08/17/2019 12:00:00 AM EDT [facility] ([facility]) MHC Telemed E/M Lvl 3--Est pt 08/17/2019 12:00:00 AM E DT [facility] ([facility]) [id number]"Psychotherapy 0 12:00:00 AM EDT - 08/06/2019 12:00:00 AM EDT [facility] ([facility]) [id number]"Psychotherapy 08/06/2019 12:00:00 AM EDT [facility] ([facility]) TEMPMHCTelemed 30" Psychotherapy 020 12:00:00 AM EDT - 07/23/2019 12:00:00 AM EDT [facility] ([facility]) TEMPMHCTelemed 30" Psychotherapy 07/23/2019 12:00:00 A M EDT [facility] ([facility]) MHC Telemed E/M Lvl 3--Est pt 07/20/2019 12:00:00 AM EDT - 07/20/2019 12:00:00 AM EDT [facility] ([facility]) MHC Telemed E/M Lvl 3--Est pt 07/20/2019 12:00:00 AM E DT [facility] ([facility]) [id number]"Psychotherapy 0 12:00:00 AM EDT - 07/06/2019 12:00:00 AM EDT [facility] ([facility]) [id number]"Psychotherapy 07/06/2019 12:00:00 AM EDT [facility] ([facility]) [id number]"Psychotherapy 0 12:00:00 AM EDT - 06/24/2019 12:00:00 AM EDT [facility] ([facility]) [id number]"Psychotherapy 06/24/2019 12:00:00 AM EDT [facility] ([facility]) MHC Telemed E/M Lvl 3--Est pt 06/14/2019 12:00:00 AM EDT - 06/14/2019 12:00:00 AM EDT [facility] ([facility]) MHC Telemed E/M Lvl 3--Est pt 06/14/2019 12:00:00 AM E DT [facility] ([facility]) [id number]"Psychotherapy 0 12:00:00 AM EDT - 06/14/2019 12:00:00 AM EDT [facility] ([facility]) [id number]"Psychotherapy 06/10/2019 12:00:00 AM EDT [facility] ([facility]) [id number]"Psychotherapy 0 12:00:00 AM EDT - 05/27/2019 12:00:00 AM EDT [facility] ([facility]) [id number]"Psychotherapy 05/27/2019 12:00:00 AM EDT [facility] ([facility]) [id number]"Psychotherapy 0 12:00:00 AM EDT - 05/24/2019 12:00:00 AM EDT [facility] ([facility]) [id number]"Psychotherapy 05/24/2019 12:00:00 AM EDT [facility] ([facility]) Extended Individual Psychotherapy - 45 min 05/12/2019 12:00:00 AM EDT - 05/12/2019 12:00:00 AM EDT [facility] ([facility]) Extended Individual Psychotherapy - 45 min 0 12:00:00 AM EDT [facility] ([facility]) OFFICE OUTPATIENT VISIT 15 MINUTES 04/27 12:00:00 AM EST - 04/27/2019 12:00:00 AM EST [facility] ([facility]) OFFICE OUTPATIENT VISIT 15 MINUTES 04/27/2019 12:00:00 AM EST [facility] ([facility]) Extended Individual Psychotherapy - 45 min 04/27/2019 12:00:00 AM EST - 04/27/2019 12:00:00 AM EST [facility] ([facility]) Extended Individual Psychotherapy - 45 min 0 12:00:00 AM EST [facility] ([facility]) OFFICE OUTPATIENT VISIT 15 MINUTES 04/23 12:00:00 AM EST - 04/23/2019 12:00:00 AM EST [facility] ([facility]) OFFICE OUTPATIENT VISIT 15 MINUTES 04/23/2019 12:00:00 AM EST [facility] ([facility]) OFFICE OUTPATIENT VISIT 15 MINUTES 04/14 12:00:00 AM EST - 04/14/2019 12:00:00 AM EST [facility] ([facility]) OFFICE OUTPATIENT VISIT 15 MINUTES 04/14/2019 12:00:00 AM EST [facility] ([facility]) Extended Individual Psychotherapy - 45 min 03/30/2019 12:00:00 AM EST - 03/30/2019 12:00:00 AM EST [facility] ([facility]) Extended Individual Psychotherapy - 45 min 0 12:00:00 AM EST [facility] ([facility]) Extended Individual Psychotherapy - 45 min 03/16/2019 12:00:00 AM EST - 03/16/2019 12:00:00 AM EST [facility] ([facility]) Extended Individual Psychotherapy - 45 min 0 12:00:00 AM EST [facility] ([facility]) OFFICE OUTPATIENT VISIT 15 MINUTES 03/10 12:00:00 AM EST - 03/10/2019 12:00:00 AM EST [facility] ([facility]) OFFICE OUTPATIENT VISIT 15 MINUTES 03/10/2019 12:00:00 AM EST [facility] ([facility]) Extended Individual Psychotherapy - 45 min 02/26/2019 12:00:00 AM EST - 02/26/2019 12:00:00 AM EST [facility] ([facility]) Extended Individual Psychotherapy - 45 min 9 12:00:00 AM EST [facility] ([facility]) Results ID Date Data Source [id number] 04/06/2020 06:45:00 PM EST [facility] Name Value Range Interpretation Code Description Data Rema rce(s) Supporting Document(s) SARS coronavirus 2 RNA [Presence] in Res piratory specimen by PATSY with probe detection NEGATIVE [facility] This lab was ordered by [facility] a nd reported by [facility]. ID Date Data Source TOTAL PROTEIN,RANDOM URINE 03/31/2020 12:00:00 AM EST eCW1 ( [facility]) Name Value Range Interpretation Code Description Data Rema rce(s) Supporting Document(s) 12.9 0.0-12.0 TOTAL PROTEIN,RANDOM URIN E eCW1 ([facility]) ID Date Data Source CREATININE,RANDOM URINE 03/31/2020 12:00:00 AM EST eCW1 ([facility]) Name Value Range Interpretation Code Description Data Rema rce(s) Supporting Document(s) 92.4 CREATININE,RANDOM URINE eCW1 ( [facility]) ID Date Data Source Comprehensive Metabolic Profile (CMP) 03/31/2020 12:00:00 AM EST eCW1 ([facility]) Name Value Range Interpretation Code Description Data Rema rce(s) Supporting Document(s) 116 70-100 GLUCOSE, FASTING eCW1 ([facility]) 0.67 0.55-1.30 CREATININE FOR GFR eCW1 ([facility]) 9 7-18 BLOOD UREA NITROGEN eCW1 ([facility]) > 60.0 >60 GLOMERULAR FILTRATION RATE eCW 1 ([facility]) 138 136-145 SODIUM LEVEL eCW1 ([facility]) 4.4 3.5-5.1 POTASSIUM SERUM eCW1 ([facility]) 103 98-107 CHLORIDE LEVEL eCW1 ([facility]) 9.1 8.5-10.1 CALCIUM LEVEL eCW1 ([facility]) 29 21-32 CARBON DIOXIDE LEVEL eCW1 ([facility]) 13 12-78 ALT/SGPT eCW1 ([facility]) 6 7-37 AST/SGOT eCW1 ([facility]) 0.2 0.2-1.0 BILIRUBIN,TOTAL eCW1 ([facility]) 2.4 3.2-5.2 ALBUMIN eCW1 ([facility]) 6.4 6.4-8.2 TOTAL PROTEIN eCW1 ([facility]) 122 45-117 ALKALINE PHOSPHATASE eCW1 ([facility]) 0.6 1.2-2.2 ALBUMIN/GLOBULIN RATIO eCW1 ([facility]) ID Date Data Source CBC - Complete Blood Count 03/31/2020 12:00:00 AM EST eCW1 ( [facility]) Name Value Range Interpretation Code Description Data Rema rce(s) Supporting Document(s) 4.28 4.00-5.40 RED BLOOD COUNT eCW1 ([facility]) 12.1 4.0-10.0 WHITE BLOOD COUNT eCW1 ([facility]) 13.2 12.0-15.5 HEMOGLOBIN eCW1 ([facility]) 30.8 27.0-33.0 MEAN CORPUSCULAR HEMOGLOB IN eCW1 ([facility]) 39.0 36.0-47.0 HEMATOCRIT eCW1 ([facility]) 33.8 32.0-36.5 MEAN CORPUSCULAR HGB CONC eCW1 ([facility]) 91.1 80.0-96.0 MEAN CORPUSCULAR VOLUME e CW1 ([facility]) 197 150-450 PLATELET COUNT, AUTOMATED eCW1 ([facility]) 13.8 11.5-14.5 RED CELL DISTRIBUTION WID TH eCW1 ([facility]) ID Date Data Source Pre Eclampsia Profile 03/08/2020 12:00:00 AM EST eCW1 ([facility]) Name Value Range Interpretation Code Description Data Rema rce(s) Supporting Document(s) 0.62 0.55-1.30 CREATININE FOR GFR eCW1 ([facility]) 7 7-37 AST/SGOT eCW1 ([facility]) > 60.0 >60 GLOMERULAR FILTRATION RATE eCW 1 ([facility]) 16 12-78 ALT/SGPT eCW1 ([facility]) [id number] LDH LACTATE DEHYDROGENASE eCW1 ([facility]) 3.6 2.6-6.0 URIC ACID eCW1 ([facility]) 0.2 0.2-1.0 BILIRUBIN,TOTAL eCW1 ([facility]) ID Date Data Source Glucose Challenge Test 1 Hour 01/24/2020 12:00:00 AM EST eCW 1 ([facility]) Name Value Range Interpretation Code Description Data Rema rce(s) Supporting Document(s) 121 LESS THAN 140 GLUCOSE CHALLENGE TEST 1 HOUR eCW1 ([facility]) ID Date Data Source Type and Screen (D Rh Antibody Screen) 01/24/2020 12:00:00 A M EST eCW1 ([facility]) Name Value Range Interpretation Code Description Data Rema rce(s) Supporting Document(s) NEGATIVE AB SCREEN (INDIRECT COOMB S)VIS eCW1 ([facility]) O POSITIVE BLOOD TYPE eCW1 ([facility]) ID Date Data Source WWBC OBS COMPLETE US 12/21/2019 03:14:36 AM EDT eCW1 ([facility]) Name Value Range Interpretation Code Description Data Rema rce(s) Supporting Document(s) eCW1 ([facility]) ID Date Data Source PAP REQUEST FOR SERVICE 12/13/2019 02:40:09 AM EDT eCW1 (Formerly [facility]) Name Value Range Interpretation Code Description Data Rema rce(s) Supporting Document(s) eCW1 ([facility]) ID Date Data Source HEPATITIS C ANTIBODY INDEX 12/13/2019 02:39:54 AM EDT eCW1 ( [facility]) Name Value Range Interpretation Code Description Data Rema rce(s) Supporting Document(s) 1.1 eCW1 ([facility]) ID Date Data Source HBSAG 12/09/2019 10:34:13 AM EDT eCW1 ([facility]) Name Value Range Interpretation Code Description Data Rema rce(s) Supporting Document(s) NEGATIVE eCW1 ([facility]) ID Date Data Source RUBELLA IMMUNE STATUS IgG 12/09/2019 10:33:58 AM EDT eCW1 ([facility]) Name Value Range Interpretation Code Description Data Rema rce(s) Supporting Document(s) IMMUNE eCW1 ([facility]) ID Date Data Source SYPHILIS ANTIBODY (RPR SCREEN) 12/09/2019 10:33:52 AM EDT eC W1 ([facility]) Name Value Range Interpretation Code Description Data Rema rce(s) Supporting Document(s) NONREACTIVE eCW1 ([facility]) ID Date Data Source [id number] 12/09/2019 10:19:01 AM EDT eCW1 ([facility]) Name Value Range Interpretation Code Description Data Rema rce(s) Supporting Document(s) eCW1 ([facility]) ID Date Data Source [id number] 10/24/2019 06:15:00 PM EDT [facility] ([facility]) Name Value Range Interpretation Code Description Data Rema rce(s) Supporting Document(s) Reflex Urine Culture Laboratory test result Norm al (applies to non-numeric results) [facility]) <content>FULL REPORT IN LAB NOTES (eCW a [...] FOR ESBL</content>
<content></content> ID Date Data Source [id number] 10/24/2019 06:15:00 PM EDT [facility] ([facility]) Name Value Range Interpretation Code Description Data Rema rce(s) Supporting Document(s) Appearance, Urine RFX Laboratory test result Above high no rmal [facility] ([facility]) Color, Urine RFX Laboratory test result Normal ( applies to non-numeric results) [facility] ([facility]) PH,Urine RFX 5.0 units 5.0-9.0 Normal (applies to non-numeric res ults) [facility] ([facility]) Specific [place] Ur Auto RFX 1.021 1.002-1.035 Nor mal (applies to non-numeric results) [facility] ([facility]) Protein, Urine Auto RFX Laboratory test result N ormal (applies to non-numeric results) [facility] ([facility]) Ketone, Urine Auto RFX Laboratory test result Above high n ormal [facility] ([facility]) Glucose, Urine (Ua) Auto RFX Laboratory test result Normal (applies to non- numeric results) [facility] ([facility]) Urobilinogen, Urine Auto RFX 0.2 mg/dL 0.0-2.0 Nor mal (applies to non-numeric results) [facility] ([facility]) Bilirubin, Urine Auto RFX Laboratory test result Normal (applies to non- numeric results) [facility] ([facility]) Blood, Urine Blood RFX Laboratory test result No rmal (applies to non-numeric results) [facility] ([facility]) Nitrite, Urine Auto RFX Laboratory test result N ormal (applies to non-numeric results) [facility] ([facility]) Leukocyte Esterase Ur Auto RFX Laboratory test result Abov e high normal [facility] ([facility]) WBC, Urine Auto RFX 2 /HPF 0-3 Normal (applies to non-nume zeny results) [facility] ([facility]) RBC, Urine Auto RFX 2 /HPF 0-3 Normal (applies to non-nume zeny results) [facility] ([facility]) Bacteria, Urine Auto RFX Laboratory test result Normal (applies to non-numeric results) [facility] ([facility]) Squam Epithelial Cell Ur Aurfx 5 /HPF 0-6 N ormal (applies to non-numeric results) [facility] ([facility]) Hyaline Cast, Urine Auto RFX 0 /LPF 0-1 Normal (appl ies to non-numeric results) [facility] ([facility]) Mucus, Urine RFX Laboratory test result Normal ( applies to non-numeric results) [facility] ([facility]) ID Date Data Source [id number] 10/24/2019 05:33:[address] [facility] ([facility]) Name Value Range Interpretation Code Description Data Rema rce(s) Supporting Document(s) Lipase [Enzymatic activity/volume] in Serum or Plasma 72 U/L 73-393 Below low normal [facility] ([facility]) <content>note:<nlbl:demographic_changed> </content>
<content></content> ID Date Data Source [id number] 10/24/2019 05:33:00 PM EDT [facility] ([facility]) Name Value Range Interpretation Code Description Data Rema rce(s) Supporting Document(s) Glucose, Fasting 88 mg/dL 70-100 Normal (applies to non-numeric results) [facility] ([facility]) Blood Urea Nitrogen 9 mg/dL 7-18 Normal (applies to non-nume zeny results) [facility] ([facility]) Glomerular Filtration Rate Laboratory test result Normal (applies to non- numeric results) [facility]) <content>Units are mL/min/1.73 m2</content>
<content></content>
<content>Chronic Kidney Disease Staging per NKF:</content>
<content></content>
<content>Stage I & II GFR >=60 Normal to Mildly Decreased</content>
<content>Stage III GFR 30-59 Moderately Decreased</content>
<content>Stage IV GFR 15-29 Severely Decreased</content>
<content>Stage V GFR <15 Very Little GFR Left</content>
<content>ESRD GFR <15 on HEMATOLOGY TECHNOLOGIST</content>
<content></content> Creatinine For GFR 0.69 mg/dL 0.55-1.30 Normal (applies to non -numeric results) [facility] ([facility]) Sodium Level 139 meq/L 136-145 Normal (applies to non-numeric res ults) [facility]) Potassium Serum 3.9 meq/L 3.5-5.1 Normal (applies to non-numeric results) [facility] ([facility]) Carbon Dioxide Level 23 meq/L 21-32 Normal (applies to non-num prashanth results) [facility]) Chloride Level 108 meq/L 98-107 Above high normal [facility] ([facility]) Calcium Level 8.6 mg/dL 8.5-10.1 Normal (applies to non-numeric re sults) [facility] ([facility]) Anion Gap 8 meq/L 8-16 Normal (applies to non-numeric resul ts) [facility]) ID Date Data Source [id number] 10/24/2019 05:33:[address] [facility] ([facility]) Name Value Range Interpretation Code Description Data Rema rce(s) Supporting Document(s) Alt/SGPT 23 U/L 12-78 Normal (applies to non-numeric resul ts) [facility] ([facility]) Ast/Sgot 15 U/L 7-37 Normal (applies to non-numeric resul ts) [facility] ([facility]) Alkaline Phosphatase 80 U/L 45-117 Normal (applies to non-num prashanth results) [facility] ([facility]) Bilirubin,Total 0.4 mg/dL 0.2-1.0 Normal (applies to non-numeric results) [facility] ([facility]) Total Protein 7.1 GM/DL 6.4-8.2 Normal (applies to non-numeric re sults) [facility] ([facility]) Bilirubin,Direct 0.1 mg/dL 0.0-0.2 Normal (applies to non-numeric results) [facility] ([facility]) Albumin 3.2 GM/DL 3.2-5.2 Normal (applies to non-numeric resul ts) [facility] ([facility]) Albumin/Globulin Ratio 0.8 1.2-2.[address] [facility] ([facility]) ID Date Data Source [id number] 10/24/2019 05:33:00 PM EDT [facility] ([facility]) Name Value Range Interpretation Code Description Data Rema rce(s) Supporting Document(s) White Blood Count 9.9 10 4.0-10.0 Normal (applies to non-numeri c results) [facility] ([facility]) Red Blood Count 4.64 10 4.00-5.40 Normal (applies to non-numeric results) [facility] ([facility]) Hemoglobin 13.7 g/dL 12.0-15.5 Normal (applies to non-numeric resul ts) [facility] ([facility]) Hematocrit 40.5 % 36.0-47.0 Normal (applies to non-numeric resul ts) [facility] ([facility]) Mean Corpuscular Volume 87.3 fl 80.0-96.0 Normal ( applies to non-numeric results) [facility] ([facility]) Mean Corpuscular Hemoglobin 29.5 pg 27.0-33.0 Norm al (applies to non-numeric results) [facility] ([facility]) Mean Corpuscular HGB Conc 33.8 g/dL 32.0-36.5 Normal (applies to non-numeric results) [facility] ([facility]) Red Cell Distribution Width 13.9 % 11.5-14.5 Norm al (applies to non-numeric results) [facility] ([facility]) Platelet Count, Automated 223 10 150-450 Normal (applies to non-numeric results) [facility] ([facility]) Neutrophils % 78.7 % 36.0-66.0 Above high normal [facility] ([facility]) Eos % 2.9 % 0.0-3.0 Normal (applies to non-numeric resul ts) [facility] ([facility]) [place] % 2.9 % 0.0-5.0 Normal (applies to non-numeric resul ts) [facility] ([facility]) Lymph % 14.6 % 24.0-44.0 Below low normal [facility] ( [facility]) Nucleated Red Blood Cell % 0.0 % 0-0 Normal (applies to n on-numeric results) [facility] ([facility]) Baso % 0.4 % 0.0-1.0 Normal (applies to non-numeric resul ts) [facility] ([facility]) Immature Granulocyte % 0.5 % 0-3.0 Normal (applies to non-n umeric results) [facility] ([facility]) Neutrophils # 7.8 10 1.5-8.5 Normal (applies to non-numeric re sults) [facility] ([facility]) [place] # 0.3 10 0.0-0.8 Normal (applies to non-numeric resul ts) [facility] ([facility]) Lymph # 1.5 10 1.5-5.0 Normal (applies to non-numeric resul ts) [facility] ([facility]) Baso # 0.0 10 0.0-0.2 Normal (applies to non-numeric resul ts) [facility] ([facility]) Eos # 0.3 10 0.0-0.5 Normal (applies to non-numeric resul ts) [facility] ([facility]) ID Date Data Source [id number] 10/23/2019 02:05:00 AM EDT [facility] Name Value Range Interpretation Code Description Data Rema rce(s) Supporting Document(s) HCV RNA PATSY Qualitative Negative Negative [facility] Negative: HCV RNA Not Detected ID Date Data Source [id number] 10/23/2019 02:05:00 AM EDT [facility] Name Value Range Interpretation Code Description Data Rema rce(s) Supporting Document(s) Please note [facility] The date recorded on the requisition ind icates the sample(s) receivedwere greater than 72 hours old upon arrival in our laboratory. ID Date Data Source [id number] 09/09/2019 07:43:[address] [facility] ([facility]) Name Value Range Interpretation Code Description Data Rema rce(s) Supporting Document(s) Laboratory test finding (navigational concept) 40.0 % 3 8.0-51.0 Normal (applies to non-numeric results) [facility] ([facility]) Laboratory test finding (navigational concept) 139 meq/L 1 36-145 Normal (applies to non-numeric results) [facility] ([facility]) Laboratory test finding (navigational concept) 106 mg/dL 7 0-[address] [facility] ([facility]) Laboratory test finding (navigational concept) 3.7 meq/L 3 .5-5.1 Normal (applies to non-numeric results) [facility] ([facility]) Laboratory test finding (navigational concept) 5.1 mg/dL 4 .5-5.3 Normal (applies to non-numeric results) [facility] ([facility]) Laboratory test finding (navigational concept) 102 meq/L 9 8-109 Normal (applies to non-numeric results) [facility] ([facility]) Laboratory test finding (navigational concept) 15 mg/dL 8 -26 Normal (applies to non-numeric results) [facility] ([facility]) Laboratory test finding (navigational concept) 24.0 MM/L 2 3.0-27.0 Normal (applies to non-numeric results) [facility] ([facility]) Laboratory test finding (navigational concept) 0.9 mg/dL 0 .6-1.3 Normal (applies to non-numeric results) [facility] ([facility]) ID Date Data Source [id number] 09/09/2019 07:27:00 PM EDT [facility] ([facility]) Name Value Range Interpretation Code Description Data Rema rce(s) Supporting Document(s) Erythrocyte sedimentation rate by Westergren method 49 mm/hr 0-[address] [facility] ([facility]) ID Date Data Source [id number] 09/09/2019 07:27:00 PM EDT [facility] ([facility]) Name Value Range Interpretation Code Description Data Rema rce(s) Supporting Document(s) Red Blood Count 4.31 10 4.00-5.40 Normal (applies to non-numeric results) [facility] ([facility]) White Blood Count 9.6 10 4.0-10.0 Normal (applies to non-numeri c results) [facility] ([facility]) Hematocrit 38.4 % 36.0-47.0 Normal (applies to non-numeric resul ts) [facility] ([facility]) Hemoglobin 12.9 g/dL 12.0-15.5 Normal (applies to non-numeric resul ts) [facility] ([facility]) Mean Corpuscular Volume 89.1 fl 80.0-96.0 Normal ( applies to non-numeric results) [facility] ([facility]) Mean Corpuscular Hemoglobin 29.9 pg 27.0-33.0 Norm al (applies to non-numeric results) [facility] ([facility]) Mean Corpuscular HGB Conc 33.6 g/dL 32.0-36.5 Normal (applies to non-numeric results) [facility] ([facility]) Red Cell Distribution Width 14.0 % 11.5-14.5 Norm al (applies to non-numeric results) [facility] ([facility]) Platelet Count, Automated 223 10 150-450 Normal (applies to non-numeric results) [facility]) Neutrophils % 59.2 % 36.0-66.0 Normal (applies to non-numeric re sults) [facility] ([facility]) Lymph % 26.3 % 24.0-44.0 Normal (applies to non-numeric resul ts) [facility] ([facility]) [place] % 7.4 % 0.0-5.0 Above high normal [facility] ([facility]) Eos % 5.9 % 0.0-3.0 Above high normal [facility] ([facility]) Immature Granulocyte % 0.4 % 0-3.0 Normal (applies to non-n umeric results) [facility] ([facility]) Baso % 0.8 % 0.0-1.0 Normal (applies to non-numeric resul ts) [facility] ([facility]) Nucleated Red Blood Cell % 0.0 % 0-0 Normal (applies to n on-numeric results) [facility] ([facility]) Neutrophils # 5.7 10 1.5-8.5 Normal (applies to non-numeric re sults) [facility] ([facility]) Lymph # 2.5 10 1.5-5.0 Normal (applies to non-numeric resul ts) [facility] ([facility]) [place] # 0.7 10 0.0-0.8 Normal (applies to non-numeric resul ts) [facility] ([facility]) Baso # 0.1 10 0.0-0.2 Normal (applies to non-numeric resul ts) [facility] ([facility]) Eos # 0.6 10 0.0-0.5 Above high normal [facility] ([facility]) ID Date Data Source [id number] 09/09/2019 07:27:00 PM EDT [facility] ([facility]) Name Value Range Interpretation Code Description Data Rema rce(s) Supporting Document(s) C reactive protein [Mass/volume] in Serum or Plasma by High sensitivity method 0.90 mg/dL 0.00-0.30 Above high normal [facility] ([facility]) <content>note:<nlbl:demographic_changed> </content>
<content></content> ID Date Data Source [id number] 08/30/2019 08:09:00 PM EDT [facility] ([facility]) Name Value Range Interpretation Code Description Data Rema e(s) Supporting Document(s) Choriogonadotropin.beta subunit [Moles/volume] in Serum or Plasm a 141 MIU/ML Normal (applies to non-numeric results) [facility] ([facility]) GESTATIONAL AGE APPROXIMATE HCG RANGE (MIU/ML) - [...] or monitoring the treatment of cancer patients. [employer] methodology. ID Date Data Source [id number] 08/30/2019 07:23:[place] ([facility]) Name Value Range Interpretation Code Description Data Rema rce(s) Supporting Document(s) Laboratory test finding (navigational concept) 167.2 Normal (applies to non- numeric results) [facility] ([facility]) <content>QUANTITATIVE RESULT QU ALITATIVE INTERPRETATION</content>
<content> </content>
<content><5.0 IU/L NEGATIVE</content>
<content>5.0 - 25.0 IU/L INDETERMINATE</content>
<content>>25.0 IU/L POSITIVE</content>
<content></content> ID Date Data Source [id number] 08/30/2019 07:02:00 PM EDT [facility] ([facility]) Name Value Range Interpretation Code Description Data Rema rce(s) Supporting Document(s) Hemoglobin 13.5 g/dL 12.0-15.5 Normal (applies to non-numeric resul ts) [facility] ([facility]) Red Blood Count 4.58 10 4.00-5.40 Normal (applies to non-numeric results) [facility] ([facility]) White Blood Count 8.7 10 4.0-10.0 Normal (applies to non-numeri c results) [facility] ([facility]) Hematocrit 40.1 % 36.0-47.0 Normal (applies to non-numeric resul ts) [facility] ([facility]) Mean Corpuscular Volume 87.6 fl 80.0-96.0 Normal ( applies to non-numeric results) [facility] ([facility]) Mean Corpuscular Hemoglobin 29.5 pg 27.0-33.0 Norm al (applies to non-numeric results) [facility] ([facility]) Mean Corpuscular HGB Conc 33.7 g/dL 32.0-36.5 Normal (applies to non-numeric results) [facility] ([facility]) Red Cell Distribution Width 13.9 % 11.5-14.5 Norm al (applies to non-numeric results) [facility] ([facility]) Platelet Count, Automated 243 10 150-450 Normal (applies to non-numeric results) [facility] ([facility]) Neutrophils % 59.3 % 36.0-66.0 Normal (applies to non-numeric re sults) [facility]) [place] % 6.9 % 0.0-5.0 Above high normal [facility] ([facility]) Lymph % 27.4 % 24.0-44.0 Normal (applies to non-numeric resul ts) [facility] ([facility]) Baso % 0.7 % 0.0-1.0 Normal (applies to non-numeric resul ts) [facility] ([facility]) Eos % 5.4 % 0.0-3.0 Above high normal [facility] ([facility]) Nucleated Red Blood Cell % 0.0 % 0-0 Normal (applies to n on-numeric results) [facility] ([facility]) Immature Granulocyte % 0.3 % 0-3.0 Normal (applies to non-n umeric results) [facility] ([facility]) Lymph # 2.4 10 1.5-5.0 Normal (applies to non-numeric resul ts) [facility] ([facility]) Neutrophils # 5.2 10 1.5-8.5 Normal (applies to non-numeric re sults) [facility] ([facility]) Eos # 0.5 10 0.0-0.5 Normal (applies to non-numeric resul ts) [facility] ([facility]) [place] # 0.6 10 0.0-0.8 Normal (applies to non-numeric resul ts) [facility] ([facility]) Baso # 0.1 10 0.0-0.2 Normal (applies to non-numeric resul ts) [facility] ([facility]) ID Date Data Source [id number] 07/21/2019 01:37:00 PM EDT [facility] ([facility]) Name Value Range Interpretation Code Description Data Rema rce(s) Supporting Document(s) Gamma glutamyl transferase [Enzymatic activity/volume] in Serum or Plasma 19 U/L 8-78 [facility] ([facility]) Is patient fasting? N ID Date Data Source [id number] 07/21/2019 01:37:00 PM EDT [facility] ([facility]) Name Value Range Interpretation Code Description Data Rema rce(s) Supporting Document(s) Sodium 138 meq/L 134-153 [facility] ([facility]) Is patient fasting? N Comprehensive [employer] Laboratory test result [facility] ([facility]) Is patient fasting? N Potassium 4.5 meq/L 3.6-5.0 [facility] ([facility]) Is patient fasting? N Co2 22 meq/L 22-30 [facility] ([facility]) Is patient fasting? N Chloride 102 meq/L 98-107 [facility] ([facility]) Is patient fasting? N BUN 20 mg/dL 7-21 [facility] ([facility]) Is patient fasting? N Glucose 100 mg/dL 65-110 [facility] ([facility]) Is patient fasting? N Creatinine 0.8 mg/dL 0.7-1.5 [facility] ([facility]) Is patient fasting? N BUN/Creat 25 8-27 [facility] ([facility]) Is patient fasting? N Albumin 3.8 g/dL 3.9-5.0 Below low normal [facility] ( [facility]) Is patient fasting? N Total Protein 6.8 g/dL 6.3-8.2 [facility] Is patient fasting? N Globulin 3.0 GM/DL 2.4-3.2 [facility] ([facility]) Is patient fasting? N Total Bili Laboratory test result 0.2-1.3 [facility] ([facility]) Is patient fasting? N A/G Ratio 1.3 0.8-2.0 [facility] ([facility]) Is patient fasting? N Calcium 9.2 mg/dL 8.4-10.2 [facility]) Is patient fasting? N Sgot/Ast 18 U/L 5-40 [facility] ([facility]) Is patient fasting? N SGPT/Alt 19 U/L 7-56 [facility] ([facility]) Is patient fasting? N Alkaline Phos 82 U/L 38-126 [facility] ([facility]) Is patient fasting? N Age 38 yrs [facility] ([facility]) Is patient fasting? N Anion Gap 14.0 mmol/L 8.0-16.0 [facility] ([facility]) Is patient fasting? N Afr Amer GFR Laboratory test result [facility] ([facility]) Is patient fasting? N Non-Aa GFR Laboratory test result [facility] ([facility]) Is patient fasting? N ID Date Data Source [id number] 07/21/2019 03:41:00 PM EDT [facility] Name Value Range Interpretation Code Description Data Rema rce(s) Supporting Document(s) Gamma glutamyl transferase [Enzymatic activity/volume] in Serum or Plasma 19 U/L 8 - 78 [facility] ID Date Data Source [id number] 07/21/2019 03:41:00 PM EDT [facility] Name Value Range Interpretation Code Description Data Rema rce(s) Supporting Document(s) COMPREHENSIVE METABOLIC PANEL [facility] COMPREHENSIVE METABOLIC PANEL Sodium [Moles/volume] in Serum or Plasma 138 mEq/L 134 - 153 [facility] Potassium [Moles/volume] in Serum or Plasma 4.5 mEq/L 3.6 - 5.0 [facility] Chloride [Moles/volume] in Serum or Plasma 102 mEq/L 98 - 107 [facility] Carbon dioxide, total [Moles/volume] in Serum or Plasma 22 MEQ/L 22 - 30 [facility] Glucose [Mass/volume] in Serum or Plasma 100 MG/DL 65 - 110 [facility] BUN 20 MG/DL 7 - 21 [facility] Creatinine [Mass/volume] in Serum or Plasma 0.8 MG/DL 0.7 - 1.5 [facility] BUN/CREAT 25 8 - 27 [facility] Protein [Mass/volume] in Serum or Plasma 6.8 G/DL 6.3 - 8.2 [facility] Albumin [Mass/volume] in Serum or Plasma 3.8 G/DL 3.9 - 5.0 L [facility] Globulin [Mass/volume] in Serum by calculation 3.0 GM/DL 2.4 - 3.2 [facility] A/G RATIO 1.3 0.8 - 2.0 [facility] Calcium [Mass/volume] in Serum or Plasma 9.2 MG/DL 8.4 - 10.2 [facility] Bilirubin.total [Mass/volume] in Serum or Plasma <0.7 MG/DL 0.2 - 1.3 [facility] Alkaline phosphatase [Enzymatic activity/volume] in Serum or Plasma 82 U/L 38 - 126 [facility] Aspartate aminotransferase [Enzymatic activity/volume] in Serum or Plasma 18 U/L 5 - 40 [facility] Alanine aminotransferase [Enzymatic activity/volume] in Seru m or Plasma 19 U/L 7 - 56 [facility] Anion gap 3 in Serum or Plasma 14.0 mmol/L 8.0 - 16.0 [facility] AGE 38 yrs [facility] NON-AA GFR >60 mL/min [facility] ital AFR AMER GFR >60 mL/min [facility] Ho spital Male GFR In terprentation [...] >32 mL/min Normal ID Date Data Source [id number] 06/24/2019 11:32:[address] [facility] ([facility]) Name Value Range Interpretation Code Description Data Rema rce(s) Supporting Document(s) Red Blood Count 4.81 10 4.00-5.40 Normal (applies to non-numeric results) [facility]) White Blood Count 7.4 10 4.0-10.0 Normal (applies to non-numeri c results) [facility] ([facility]) Hemoglobin 13.9 g/dL 12.0-15.5 Normal (applies to non-numeric resul ts) [facility]) Hematocrit 42.0 % 36.0-47.0 Normal (applies to non-numeric resul ts) [facility]) Mean Corpuscular Volume 87.3 fl 80.0-96.0 Normal ( applies to non-numeric results) [facility]) Red Cell Distribution Width 13.9 % 11.5-14.5 Norm al (applies to non-numeric results) [facility]) Platelet Count, Automated 212 10 150-450 Normal (applies to non-numeric results) [facility]) Mean Corpuscular Hemoglobin 28.9 pg 27.0-33.0 Norm al (applies to non-numeric results) [facility] ([facility]) Mean Corpuscular HGB Conc 33.1 g/dL 32.0-36.5 Normal (applies to non-numeric results) [facility] ([facility]) Nucleated Red Blood Cell % 0.0 % 0-0 Normal (applies to n on-numeric results) [facility] ([facility]) ID Date Data Source [id number] 06/24/2019 11:32:00 AM EDT [facility] ([facility]) Name Value Range Interpretation Code Description Data Rema rce(s) Supporting Document(s) Neutrophils % 54.0 % 36.0-66.0 Normal (applies to non-numeric re sults) [facility] ([facility]) Lymph % 30.9 % 24.0-44.0 Normal (applies to non-numeric resul ts) [facility] ([facility]) Eos % 5.8 % 0.0-3.0 Above high normal [facility] ([facility]) [place] % 7.9 % 0.0-5.0 Above high normal [facility] ([facility]) Neutrophils # 4.0 10 1.5-8.5 Normal (applies to non-numeric re sults) [facility] ([facility]) Baso % 1.1 % 0.0-1.0 Above high normal [facility] ([facility]) Immature Granulocyte % 0.3 % 0-3.0 Normal (applies to non-n umeric results) [facility] ([facility]) Lymph # 2.3 10 1.5-5.0 Normal (applies to non-numeric resul ts) [facility] ([facility]) Eos # 0.4 10 0.0-0.5 Normal (applies to non-numeric resul ts) [facility] ([facility]) [place] # 0.6 10 0.0-0.8 Normal (applies to non-numeric resul ts) [facility] ([facility]) Baso # 0.1 10 0.0-0.2 Normal (applies to non-numeric resul ts) [facility] ([facility]) ID Date Data Source [id number] 06/24/2019 11:32:00 AM EDT [facility] ([facility]) Name Value Range Interpretation Code Description Data Rema rce(s) Supporting Document(s) Blood Urea Nitrogen 19 mg/dL 7-18 Above high normal [facility] ([facility]) Glucose, Fasting 86 mg/dL 70-100 Normal (applies to non-numeric results) [facility] ([facility]) Sodium Level 137 meq/L 136-145 Normal (applies to non-numeric res ults) [facility] ([facility]) Glomerular Filtration Rate Laboratory test result Normal (applies to non- numeric results) [facility]) <content>Units are mL/min/1.73 m2</content>
<content></content>
<content>Chronic Kidney Disease Staging per NKF:</content>
<content></content>
<content>Stage I & II GFR >=60 Normal to Mildly Decreased</content>
<content>Stage III GFR 30-59 Moderately Decreased</content>
<content>Stage IV GFR 15-29 Severely Decreased</content>
<content>Stage V GFR <15 Very Little GFR Left</content>
<content>ESRD GFR <15 on HEMATOLOGY TECHNOLOGIST</content>
<content></content> Creatinine For GFR 0.86 mg/dL 0.55-1.30 Normal (applies to non -numeric results) [facility] ([facility]) Carbon Dioxide Level 21 meq/L 21-32 Normal (applies to non-num prashanth results) [facility] ([facility]) Chloride Level 109 meq/L 98-107 Above high normal [facility] ([facility]) Potassium Serum 4.8 meq/L 3.5-5.1 Normal (applies to non-numeric results) [facility] ([facility]) Ast/Sgot 47 U/L 7-37 Above high normal [facility] ([facility]) Calcium Level 8.8 mg/dL 8.5-10.1 Normal (applies to non-numeric re sults) [facility] ([facility]) Anion Gap 7 meq/L 8-16 Below low normal [facility] ( [facility]) Alt/SGPT 111 U/L 12-78 Above high normal [facility] ([facility]) Total Protein 7.3 GM/DL 6.4-8.2 Normal (applies to non-numeric re sults) [facility] ([facility]) Alkaline Phosphatase 88 U/L 45-117 Normal (applies to non-num prashanth results) [facility] ([facility]) Bilirubin,Total 0.3 mg/dL 0.2-1.0 Normal (applies to non-numeric results) [facility] ([facility]) Albumin 3.4 GM/DL 3.2-5.2 Normal (applies to non-numeric resul ts) [facility] ([facility]) Albumin/Globulin Ratio 0.87 1.00-1.93 Below low normal [facility] ([facility]) ID Date Data Source [id number] 06/24/2019 11:32:00 AM EDT [facility]) Name Value Range Interpretation Code Description Data Rema rce(s) Supporting Document(s) Triglycerides Level 202 mg/dL Above high normal [facility] ([facility]) Cholesterol Level 176 mg/dL Normal (applies to non-numeri c results) [facility] ([facility]) HDL Cholesterol 42 mg/dL Normal (applies to non-numeric results) [facility] ([facility]) Non-HDL-C 134 mg/dL Normal (applies to non-numeric resul ts) [facility] ([facility]) LDL Cholesterol 94 mg/dL Normal (applies to non-numeric results) [facility] ([facility]) Cholesterol Risk Ratio 4.190 Normal (applies to non-n umeric results) [facility] ([facility]) ID Date Data Source [id number] 06/24/2019 11:32:00 AM EDT [facility] ([facility]) Name Value Range Interpretation Code Description Data Rema rce(s) Supporting Document(s) Natriuretic peptide.B prohormone N-Terminal [Mass/volu me] in Serum or Plasma 24 pg/mL Normal (applies to non-numeric results) [facility] ([facility]) <content>note:<nlbl:demographic_changed> </content>
<content></content> Thyrotropin [Units/volume] in Serum or Plasma 1.820 uIU/ML 0. 358-3.740 Normal (applies to non-numeric results) [facility] ([facility]) <content>note:<nlbl:demographic_changed> </content>
<content></content> Calcidiol [Mass/volume] in Serum or Plasma 24.9 ng/mL 30.0- 100.0 Below low normal [facility] ([facility]) <content>note:<nlbl:demographic_changed> </content>
<content></content> ID Date Data Source [id number] 06/24/2019 11:24:[address] [facility] ([facility]) Name Value Range Interpretation Code Description Data Rema rce(s) Supporting Document(s) Appearance, Urine Laboratory test result Normal (applies to non-numeric results) [facility] ([facility]) Color, Urine Laboratory test result Normal (applies to non -numeric results) [facility] ([facility]) PH,Urine 5.0 units 5.0-9.0 Normal (applies to non-numeric resul ts) [facility] ([facility]) Specific [place] Urine Auto 1.021 1.002-1.035 Norm al (applies to non-numeric results) [facility] ([facility]) Glucose, Urine (Ua) Auto Laboratory test result Normal (applies to non-numeric results) [facility] ([facility]) Protein, Urine Auto Laboratory test result [place] (applies to non-numeric results) [facility] ([facility]) Ketone, Urine Auto Laboratory test result Normal (applies to non-numeric results) [facility]) Bilirubin, Urine Auto Laboratory test result Nor mal (applies to non-numeric results) [facility] ([facility]) Urobilinogen, Urine Auto 0.2 mg/dL 0.0-2.0 Normal (applies to non-numeric results) [facility] ([facility]) Leukocyte Esterase, Urine Auto Laboratory test result Normal (applies to non- numeric results) [facility] ([facility]) Nitrite, Urine Auto Laboratory test result [place] (applies to non-numeric results) [facility] ([facility]) Blood, Urine Blood Laboratory test result Above high [place] [facility] ([facility]) WBC, Urine Auto 0 /HPF 0-3 Normal (applies to non-numeric results) [facility] ([facility]) Squamous Epithelial Cell Ur AU 6 /HPF 0-6 N ormal (applies to non-numeric results) [facility] ([facility]) Bacteria, Urine Auto Laboratory test result Norm al (applies to non-numeric results) [facility] ([facility]) RBC, Urine Auto 3 /HPF 0-3 Normal (applies to non-numeric results) [facility] ([facility]) Hyaline Cast, Urine Auto 0 /LPF 0-1 Normal (applies to non -numeric results) [facility] ([facility]) ID Date Data Source [id number] 06/24/2019 11:24:00 AM EDT [facility] ([facility]) Name Value Range Interpretation Code Description Data Rema rce(s) Supporting Document(s) Amphetamine Screen, Urine Laboratory test result Normal (applies to non- numeric results) [facility] ([facility]) Cannabinoid Screen, Urine Laboratory test result Normal (applies to non- numeric results) [facility] ([facility]) Benzodiazepines, Urine Screen Laboratory test result Normal (applies to non- numeric results) [facility] ([facility]) Barbiturates Screen, Urine Laboratory test result Normal (applies to non- numeric results) [facility] ([facility]) Opiate Screen, Urine Laboratory test result Norm al (applies to non-numeric results) [facility] ([facility]) Opiate test includes Codeine, Morphine, Hydromorphone, Hydrocodone. Oxycodone, Screen, Urine Laboratory test result Normal (applies to non-numeric results) [facility] ([facility]) Test includes Oxycodone and Oxymorphone Cocaine Screen, Urine Laboratory test result Nor mal (applies to non-numeric results) [facility] ([facility]) Propoxyphene Urine, Screen Laboratory test result Normal (applies to non- numeric results) [facility] ([facility]) PCP Screen, Urine Laboratory test result Normal (applies to non-numeric results) [facility] ([facility]) Meperidine, Urine Screen Laboratory test result Normal (applies to non-numeric results) [facility] ([facility]) This test was developed and its performa nce characteristics determined by [employer]. It has not been cleared or approved by the Food and Drug Administration. Methadone, Urine Screen Laboratory test result N ormal (applies to non-numeric results) [facility] ([facility]) Creatinine, Urine 124.7 mg/dL 20.0-300.0 Normal (applie s to non-numeric results) [facility] Tramadol Screen, Urine Laboratory test result No rmal (applies to non-numeric results) [facility]) Fentanyl Urine Screen Laboratory test result Nor mal (applies to non-numeric results) [facility] Test includes Fentanyl and Norfentanyl . This test was developed and its performance characteristics determined by [employer]. It has not been cleared or approved by the Food and Drug Administration. Specific [place], Urine 1.028 Normal (applies to non- numeric results) [facility] ([facility]) Please Note: Laboratory test result Normal (applies to non -numeric results) [facility]) . Drug-test results should be interpreted in the context of clinical information. Patient metabolic variables, specific drug chemistry, and specimen characteristics can affect test outcome. Technical consultation is available if a test result is inconsistent with an expected outcome. ([email or web address] or call toll-free [phone]) . Drug brands, if listed herein, are trademarks of their respective owners. Performed at: [facility] [address] [place] [address] [id number] Replanter: Pretty Swain MD, Phone: [phone] pH, Urine 5.0 4.5-8.9 Normal (applies to non-numeric resul ts) [facility]) ID Date Data Source [id number] 03/25/2019 11:00:00 AM EST [facility] [address] [place] [address] PHONE: [phone] FAX: [phone] Name .................. : LORRAINE Dawson Acct Number.................. : [id number] ROOM. ................. : TR-1B MR Number ................... : [id number] Stay type ............. : E/R Discharge Date......... ... : 03/24/19 Admit Date ......... : 03/24/19 Admit Phys .................... : TABITHA SHAWNA Date of ....... : 1980 Family Phys ................... : Spry HARD Phone .................. : [phone] Age ................................ : 38 Film# .................. .:[id number] Sex ................................. : F Unsigned transcriptions are preliminary reports and do not represent a medical or legal document CT LS W/O CONTRAST [id number] COMPLETE:03/24/19 16:57 AMBER [id number] Reason(s): 12/10 tailbone and lower lumbar pain [...] By Juancho Campo MD , 03/25/19 11:00, [facility] Transcribe Initials: LOPEZ , Transcribe Date: 03/24/19 18:27, Dictation Date: Copy for: TABITHA Dawson via fax Copy for: EMERGENCY DEPT via modem Copy for: [address] [place] [address] PHONE: [phone] FAX: [phone] Name .................. : LORRAINE Dawson Acct Number.................. : [id number] ROOM. ................. : TR-1B MR Number ................... : [id number] Stay type ............. : E/R Discharge Date......... ... : 03/24/19 Admit Date ......... : 03/24/19 Admit Phys .................... : TABITHA SHAWNA Date of ....... : 1980 Family Phys ................... : [employer] Phone .................. : [phone] Age ................................ : 38 Film# .................. .:[id number] Sex ................................. : F Unsigned transcriptions are preliminary reports and do not represent a medical or legal document CT LS W/O CONTRAST [id number] COMPLETE:03/24/19 16:57 AMBER [id number] Reason(s): 12/10 tailbone and lower lumbar pain s/p fall DISCHARGED Page 2 of 2 Name Value Range Interpretation Code Description Data Rema rce(s) Supporting Document(s) ID Date Data Source [id number] 03/24/2019 04:07:00 PM EST [facility] 1 OrderSheet [facility] Emergency Department [address] [place] [address] Phone #: [phone]- [phone] 03/24/2019 16:05 Patient: CHEN PETERS Sex: F [...] Lumbar STAT 16:16 03/24/2019 16:21 Hilda,W/O Cont aMnohar MCKEON; Patti Horta(Oxygen?(No)) Reason for Study: 12/10 tailbone and lower lumbar pain s/p fallMEDICATION/IV/DRIP/FLUID ORDERSOrder Description Priority Entered Acknowledged InitialedToradol IM 60 mg 16:16 03/24/2019 16:24 Hilda,(NOW x1) Manohar MCKEON; Patti HortaGENERAL ORDERSOrder Description Priority Entered Acknowledged InitialedObtain Old Records 16:17 03/24/2019 16:17 Juan rCuz;[Electronically signed by Patti Stevens R.N. (17:41 03/24/2019)][Electron ically signed by Manohar Lu (18:48 03/24/2019)][Electronically locked by Patti Stevens R.N. (17:41 03/24/2019)] Name Value Range Interpretation Code Description Data Rema rce(s) Supporting Document(s) ID Date Data Source [id number] 03/24/2019 04:07:00 PM EST [facility] 1 Medication Reconciliation Report [facility] Emergency Department [address] [place] [address] Phone #: ext- [phone] 03/24/2019 16:05 Patient: [...] e(s) Supporting Document(s) ID Date Data Source [id number] 03/24/2019 04:07:00 PM [place] [address] Medication Administration Record [facility] Emergency Department [address] [place] [address] Phone #: ext- [phone] 03/24/2019 16:05 Patient: [...] rce(s) Supporting Document(s) ID Date Data Source [id number] 03/24/2019 04:07:00 PM [facility] 1 General Instructions [facility] Emergency Department [address] [place] [address] Phone #: ext- [phone] 03/24/2019 16:05 Patient: CHEN PETERS [facility]#: [id number] Sex: F : 1980 Age: 38ySingle contusion. [...] to plan of care. 2 General Instructions [facility] Emergency Department [address] [place] [address] Phone #: ext- [phone] 03/24/2019 16:05 Patient: CHEN PETERS Sex: F : 1980 Age: 38yNo lifting greater than 5 lbs, no bending or stooping or no prolonged sitting until well. No strenuous activityfor until better.(Electronically signed by MIKE Wallis 03/24/2019 18:48) Name Value Range Interpretation Code Description Data Rema rce(s) Supporting Document(s) ID Date Data Source [id number] 03/24/2019 04:07:00 PM EST [facility] 1 Clinical Report - Nurses [facility] Emergency Department [address] [place] [address] Phone #: ext- [phone] 03/24/2019 16:05 Patient: CHEN PETERS Sex: F : 1980 Age: 38yTRIAGEArrived by EMS. Historian: patient.Triage time: 16:06 03/24/2019. Acuity: LEVEL 4.Chief Complaint: BACK PAIN.Alert. No acute distress.( pt had original fall in january. pt coughed last night and pain got worse. pt has xrays of it but no CT.pt seen [facility] last night for pain, f/u with Dr [...] 03/24/19June, R.N.PROBLEMS:Endometrosis.Dizziness. 2 Clinical Report - Nurses [facility] Emergency Department [address] [place] [address] Phone #: ext- [phone] 03/24/2019 16:05 Patient: [...] She has not traveled outside the [place] [facility] disease exposure: No infectious disease exposure. [...] skin integrity riskidentified. --16:13 03/24/19 Corin Thorne R.N.Interventions treatment room. --16:13 03/24/19 Corin Thorne R.N. 3 Clinical Report - Nurses [facility] Emergency Department [address] [place] [address] Phone #: ext- [phone] 03/24/2019 16:05 Patient: CHEN PETERS [facility]#: [id number] Sex: F : 1980 Age: 38yNURSING PROGRESS [...] F. Pain level now 8/10. --17:34 03/24/19 [facility]St[facility] ER Tech1 Departure time: 17:41 03/24/2019. Condition at departure: stable. No learning barriers present. Discharge instructions provided and reviewed with the patient. Reviewed warnings (please see paper copy). Patient verbalized understanding. Written instructions provided in Malawian. ( Cami given to pt). The patient was discharged by the physician pharmaceutical assistant. She was discharged home and unaccompanied [...] Stevens R.N. 4 Clinical Report - Nurses [facility] Emergency Department [address] [place] [address] Phone #: ext- [phone] 03/24/2019 16:05 [id number] Sex: F : 1980 Age: 38y Name Value Range Interpretation Code Description Data Rema rce(s) Supporting Document(s) ID Date Data Source [id number] 03/24/2019 04:07:00 PM EST [facility] 1 Clinical Report - Physicians/Mid Levels [facility] Emergency Department [address] [place] [address] Phone #: ext- [phone] 03/24/2019 16:05 [id number] Sex: F : 1980 Age: 38y Time [...] injured lower back and tailbone, seen at [facility] and x-rays neg per pt. Coughed yesterday [...] light. 2 Clinical Report - Physicians/Mid Levels [facility] Emergency Department [address] [place] [address] Phone #: ext- [phone] 03/24/2019 16:05 Patient: CHEN PETERS Sex: F [...] 5.40) 3 Clinical Report - Physicians/Mid Levels [facility] Emergency Department [address] [place] [address] Phone #: ext- [phone] 03/24/2019 16:05 [id number] Sex: F : 1980 Age: 38y HEMOGLOBIN [...] sodium*. 4 Clinical Report - Physicians/Mid Levels [facility] Emergency Department [address] [place] [address] Phone #: ext- [phone] 03/24/2019 16:05 [id number] Sex: F : 1980 Age: 38y Lyrica [...] e(s) Supporting Document(s) ID Date Data Source [id number] 03/24/2019 04:23:00 PM EST [facility] ([facility]) Name Value Range Interpretation Code Description Data [facility] Supporting Document(s) Potassium 4.6 meq/L 3.6-5.0 [facility] ([facility]) Chloride 103 meq/L 98-107 [facility] ([facility]) Sodium 138 meq/L 134-153 [facility] ([facility]) Comprehensive [employer]abo Laboratory test result [facility] ([facility]) COMPREHENSIVE METABOLIC PANEL BUN 18 mg/dL 7-21 [facility] ([facility]) Glucose 102 mg/dL 65-110 [facility] ([facility]) Co2 25 meq/L 22-30 [facility] ([facility]) Total Protein 7.1 g/dL 6.3-8.2 [facility] ([facility]) BUN/Creat 23 8-27 [facility] ([facility]) Albumin 4.0 g/dL 3.9-5.0 [facility] ([facility]) Creatinine 0.8 mg/dL 0.7-1.5 [facility] ([facility]) A/G Ratio 1.3 0.8-2.0 [facility] ([facility]) Globulin 3.1 GM/DL 2.4-3.2 [facility] ([facility]) Calcium 9.4 mg/dL 8.4-10.2 [facility] ([facility]) Total Bili 0.7 mg/dL 0.2-1.3 [facility] ([facility]) Alkaline Phos 91 U/L 38-126 [facility] ([facility]) Sgot/Ast 13 U/L 5-40 [facility] ([facility]) SGPT/Alt 14 U/L 7-56 [facility] ([facility]) Anion Gap 10.0 mmol/L 8.0-16.0 [facility] ([facility]) Non-Aa GFR Laboratory test result [facility] ([facility]) Age 38 yrs [facility] ([facility]) Afr Amer GFR Laboratory test result [facility] ([facility]) Male GFR Interprentation 20-49 yrs >60 mL/min [...] >32 mL/min Normal ID Date Data Source [id number] 03/24/2019 04:23:00 PM EST [facility] ([facility]) Name Value Range Interpretation Code Description Data Rema rce(s) Supporting Document(s) CBC No Diff Laboratory test result [facility] ([facility]) COMPLETE BLOOD COUNT WBC 9.2 10^3/uL 4.2-11.0 [facility] ([facility]) Hemoglobin 13.1 g/dL 12.0-16.0 [facility] ([facility]) Hematocrit 39.8 % 37.0-47.0 [facility] ([facility]) RBC 4.65 10^6/uL 4.20-5.40 [facility] ([facility]) MCH 28.2 pg 27.0-34.0 [facility] ([facility]) RDW 15.1 % 11.5-14.5 Above high normal [facility] ([facility]) MCV 85.6 fL 81.0-101 [facility] ([facility]) MCHC 32.9 g/dL 31.0-36.0 [facility] ([facility]) Platelets 237 10^3/uL 150-450 [facility] ([facility]) MPV 10.6 fL 7.4-10.4 Above high normal [facility] ([facility]) ID Date Data Source [id number] 03/24/2019 04:59:00 PM [facility] Name Value Range Interpretation Code Description Data Rema rce(s) Supporting Document(s) COMPREHENSIVE METABOLIC PANEL [facility] COMPREHENSIVE METABOLIC PANEL Sodium [Moles/volume] in Serum or Plasma 138 mEq/L 134 - 153 [facility] Potassium [Moles/volume] in Serum or Plasma 4.6 mEq/L 3.6 - 5.0 [facility] Chloride [Moles/volume] in Serum or Plasma 103 mEq/L 98 - 107 [facility] Carbon dioxide, total [Moles/volume] in Serum or Plasma 25 MEQ/L 22 - 30 [facility] Glucose [Mass/volume] in Serum or Plasma 102 MG/DL 65 - 110 [facility] BUN 18 MG/DL 7 - 21 [facility] Creatinine [Mass/volume] in Serum or Plasma 0.8 MG/DL 0.7 - 1.5 [facility] BUN/CREAT 23 8 - 27 [facility] Protein [Mass/volume] in Serum or Plasma 7.1 G/DL 6.3 - 8.2 [facility] Albumin [Mass/volume] in Serum or Plasma 4.0 G/DL 3.9 - 5.0 [facility] Globulin [Mass/volume] in Serum by calculation 3.1 GM/DL 2.4 - 3.2 [facility] A/G RATIO 1.3 0.8 - 2.0 [facility] Calcium [Mass/volume] in Serum or Plasma 9.4 MG/DL 8.4 - 10.2 [facility] Bilirubin.total [Mass/volume] in Serum or Plasma 0.7 MG/DL 0.2 - 1.3 [facility] Alkaline phosphatase [Enzymatic activity/volume] in Serum or Plasma 91 U/L 38 - 126 [facility] Aspartate aminotransferase [Enzymatic activity/volume] in Serum or Plasma 13 U/L 5 - 40 [facility] Alanine aminotransferase [Enzymatic activity/volume] in Seru m or Plasma 14 U/L 7 - 56 [facility] Anion gap 3 in Serum or Plasma 10.0 mmol/L 8.0 - 16.0 [facility] AGE 38 yrs [facility] NON-AA GFR >60 mL/min [facility] ital AFR AMER GFR >60 mL/min [facility] Ho spital Male GFR In terprentation [...] >32 mL/min Normal ID Date Data Source [id number] 03/24/2019 04:34:00 PM EST [facility] Name Value Range Interpretation Code Description Data Rema rce(s) Supporting Document(s) CBC NO DIFF [facility] ital COMPLETE BLOOD COUNT Leukocytes [#/volume] in Blood by Automated count 9.2 10^3/uL 4.2 - 1 1.0 [facility] Erythrocytes [#/volume] in Blood by Automated count 4.65 10^6/uL 4. 20 - 5.40 [facility] Hemoglobin [Mass/volume] in Blood 13.1 g/dL 12.0 - 16.0 [facility] Hematocrit [Volume Fraction] of Blood by Automated count 39.8 % 3 7.0 - 47.0 [facility] Erythrocyte mean corpuscular volume [Entitic volume] by Auto mated count 85.6 fL 81.0 - 101 [facility] Erythrocyte mean corpuscular hemoglobin [Entitic mass] by Automated count 28.2 pg 27.0 - 34.0 [facility] Erythrocyte mean corpuscular hemoglobin concentration [Mass/volume] by Automated count 32.9 g/dL 31.0 - 36.0 [facility] Erythrocyte distribution width [Ratio] by Automated count 15.1 % 11.5 - 14.5 H [facility] Platelets [#/volume] in Blood by Automated count 237 10^3/uL 150 - 45 0 [facility] Platelet mean volume [Entitic volume] in Blood by Automated count 10.6 fL 7.4 - 10.4 H [facility] ID Date Data Source [id number] 03/20/2019 06:00:00 PM EST [facility] ([facility]) Name Value Range Interpretation Code Description Data Rema rce(s) Supporting Document(s) Respiratory Panel Laboratory test result [facility] ([facility]) This respiratory PCR panel detects Influ larry A H1, H3 and 2009 H1 viruses, Influenza B virus, Resp iratory syncytial virus, Human metapneumovirus, Parainfluenza virus 1, 2, 3 and 4, Adenovirus, Rhinovirus/Enterovirus, Coronavirus HKU1, NL63, OC43 and 229E, Bordetella pertussis, Mycoplasma pneumoniae and Chlamydia pneumoniae. NEGATIVE by MULTIPLEXED NUCLEIC ACID PCR ID Date Data Source [id number] 03/17/2019 10:32:00 AM EST [facility] ([facility]) Name Value Range Interpretation Code Description Data Rema rce(s) Supporting Document(s) Spine Cerv Comp-5 Or More View Laboratory test result [facility] ([facility]) Spine Thoracic Laboratory test result [facility] ([facility]) Procedure Social History Code Duration Value Status Description Data Source(s ) Smoking 04/11/2020 12:00:00 AM EST Unknown if ever smoked comp leted Unknown if ever smoked [facility] ([facility]) Smoking 04/02/2020 12:00:00 AM EST Former Smoker completed Former Smoker eCW1 ([facility]) Smoking 03/24/2020 12:00:00 AM EST Former Smoker completed Former Smoker eCW1 ([facility]) Smoking 03/24/2020 12:00:00 AM EST Former Smoker completed Former Smoker eCW1 ([facility]) Smoking 03/24/2020 12:00:00 AM EST Unknown if ever smoked comp leted Unknown if ever smoked [facility] ([facility]) Smoking 03/21/2020 12:00:00 AM EST Unknown if ever smoked comp leted Unknown if ever smoked [facility] ([facility]) Smoking 03/17/2020 12:00:00 AM EST Unknown if ever smoked comp leted Unknown if ever smoked [facility] ([facility] Smoking 03/16/2020 12:00:00 AM EST Former Smoker completed Former Smoker eCW1 ([facility]) Smoking 03/06/2020 12:00:00 AM EST Former Smoker completed Former Smoker eCW1 ([facility]) Smoking 03/06/2020 12:00:00 AM EST Former Smoker completed Former Smoker eCW1 ([facility]) Smoking 03/06/2020 12:00:00 AM EST Unknown if ever smoked comp leted Unknown if ever smoked [facility] ([facility]) Smoking 02/21/2020 12:00:00 AM EST Former Smoker completed Former Smoker eCW1 ([facility]) Smoking 02/21/2020 12:00:00 AM EST Former Smoker completed Former Smoker eCW1 ([facility]) Smoking 02/21/2020 12:00:00 AM EST Former Smoker completed Former Smoker eCW1 ([facility]) Smoking 02/11/2020 12:00:00 AM EST Unknown if ever smoked comp leted Unknown if ever smoked [facility] ([facility]) Smoking 01/25/2020 12:00:00 AM EST Unknown if ever smoked comp leted Unknown if ever smoked [facility] ([facility]) Smoking 01/21/2020 12:00:00 AM EST Former Smoker completed Former Smoker eCW1 ([facility]) Smoking 01/21/2020 12:00:00 AM EST Former Smoker completed Former Smoker eCW1 ([facility]) Smoking 01/21/2020 12:00:00 AM EST Former Smoker completed Former Smoker eCW1 ([facility]) Smoking 01/10/2020 12:00:00 AM EST Unknown if ever smoked comp leted Unknown if ever smoked [facility] ([facility]) Smoking 12/30/2019 12:00:00 AM EDT Unknown if ever smoked comp leted Unknown if ever smoked [facility] ([facility]) Smoking 12/16/2019 12:00:00 AM EDT Unknown if ever smoked comp leted Unknown if ever smoked [facility] ([facility]) Smoking 12/07/2019 12:00:00 AM EDT Former Smoker completed Former Smoker eCW1 ([facility]) Smoking 12/02/2019 12:00:00 AM EDT Unknown if ever smoked comp leted Unknown if ever smoked [facility] ([facility]) Smoking 11/30/2019 12:00:00 AM EDT Unknown if ever smoked comp leted Unknown if ever smoked [facility] ([facility]) Smoking 11/09/2019 12:00:00 AM EDT Unknown if ever smoked comp leted Unknown if ever smoked [facility] ([facility]) Smoking 11/04/2019 12:00:00 AM EDT Unknown if ever smoked comp leted Unknown if ever smoked [facility] ([facility]) Smoking 09/02/2019 12:00:00 AM EDT Unknown if ever smoked comp leted Unknown if ever smoked [facility] ([facility]) Smoking 08/20/2019 12:00:00 AM EDT Unknown if ever smoked comp leted Unknown if ever smoked [facility] ([facility]) Smoking 08/17/2019 12:00:00 AM EDT Unknown if ever smoked comp leted Unknown if ever smoked [facility] ([facility]) Smoking 08/06/2019 12:00:00 AM EDT Unknown if ever smoked comp leted Unknown if ever smoked [facility] ([facility]) Smoking 07/23/2019 12:00:00 AM EDT Unknown if ever smoked comp leted Unknown if ever smoked [facility] ([facility]) Smoking 07/20/2019 12:00:00 AM EDT Unknown if ever smoked comp leted Unknown if ever smoked [facility] ([facility]) Smoking 07/06/2019 12:00:00 AM EDT Unknown if ever smoked comp leted Unknown if ever smoked [facility] ([facility]) Smoking 06/24/2019 12:00:00 AM EDT Unknown if ever smoked comp leted Unknown if ever smoked [facility] ([facility]) Smoking 06/14/2019 12:00:00 AM EDT Unknown if ever smoked comp leted Unknown if ever smoked [facility] ([facility]) Smoking 05/27/2019 12:00:00 AM EDT Unknown if ever smoked comp leted Unknown if ever smoked [facility] ([facility]) Smoking 05/24/2019 12:00:00 AM EDT Unknown if ever smoked comp leted Unknown if ever smoked [facility] ([facility]) Smoking 05/12/2019 12:00:00 AM EDT Unknown if ever smoked comp leted Unknown if ever smoked [facility] ([facility]) Smoking 04/27/2019 12:00:00 AM EST Unknown if ever smoked comp leted Unknown if ever smoked [facility] ([facility]) Smoking 04/23/2019 12:00:00 AM EST Unknown if ever smoked comp leted Unknown if ever smoked [facility] ([facility]) Smoking 04/14/2019 12:00:00 AM EST Unknown if ever smoked comp leted Unknown if ever smoked [facility] ([facility]) Smoking 03/30/2019 12:00:00 AM EST Unknown if ever smoked comp leted Unknown if ever smoked [facility] ([facility]) Smoking 03/16/2019 12:00:00 AM EST Unknown if ever smoked comp leted Unknown if ever smoked [facility] ([facility]) Smoking 03/10/2019 12:00:00 AM EST Unknown if ever smoked comp leted Unknown if ever smoked [facility] ([facility]) Smoking 02/26/2019 12:00:00 AM EST Unknown if ever smoked comp leted Unknown if ever smoked [facility] ([facility]) Vital Signs ID Date Data Source UNK Name Value Range Interpretation Code Description Data Source(s) Diastolic blood pressure 90 mm[Hg] 90 mm[Hg] [facility] ([facility]) Systolic blood pressure 132 mm[Hg] 132 mm[Hg] e [facility] ([facility]) Body mass index (BMI) [Ratio] 48.034 kg/m2 48.0 34 kg/m2 [facility] ([facility]) Body height 66 [in_i] 66 [in_i] [facility] ([facility]) Body weight 297.6 [lb_av] 297.6 [lb_av] [facility] ([facility]) Diastolic blood pressure 90 mm[Hg] 90 mm[Hg] W ([facility]) Systolic blood pressure 144 mm[Hg] 144 mm[Hg] e [facility] ([facility]) Body mass index (BMI) [Ratio] 47.485 kg/m2 47.4 85 kg/m2 [facility] ([facility]) Body height 66 [in_i] 66 [in_i] [facility] ([facility]) Body weight 133.45 kg 133.45 kg eCW1 ([facility]) Body weight 294.2 [lb_av] 294.2 [lb_av] eCW1 ([facility]) Diastolic blood pressure 0 mm[Hg] Normal (applies to non-numeric results) 0 mm[Hg] [facility] ([facility]) Systolic blood pressure 0 mm[Hg] Normal (applies t o non-numeric results) 0 mm[Hg] [facility] ([facility]) Body mass index (BMI) [Ratio] 0.00 kg/m2 No rmal (applies to non-numeric results) 0.00 kg/m2 [facility] ([facility]) Body weight Measured 0.00 lbs Normal (applies to n on-numeric results) 0.00 lbs [facility] ([facility]) Body height 0.00 in Normal (applies to non-numeric resu lts) 0.00 in [facility] ([facility]) Diastolic blood pressure 78 mm[Hg] 78 mm[Hg] eCW1 ([facility]) Systolic blood pressure 128 mm[Hg] 128 mm[Hg] e CW1 ([facility]) Body mass index (BMI) [Ratio] 47.13 kg/m2 47.13 kg/m2 W1 ([facility]) Body height 66 [in_i] 66 [in_i] eCW1 ([facility]) Body weight 292 [lb_av] 292 [lb_av] eCW1 ([facility]) Diastolic blood pressure 98 mm[Hg] 98 mm[Hg] eCW1 ([facility]) Systolic blood pressure 140 mm[Hg] 140 mm[Hg] e CW1 ([facility]) Body mass index (BMI) [Ratio] 46.807 kg/m2 46.8 07 kg/m2 [facility] ([facility]) Body height 66 [in_i] 66 [in_i] eCW1 ([facility]) Body weight 131.54 kg 131.54 kg eCW1 ([facility]) Body weight 290 [lb_av] 290 [lb_av] eCW1 ([facility]) Diastolic blood pressure 80 mm[Hg] 80 mm[Hg] eCW1 ([facility]) Systolic blood pressure 118 mm[Hg] 118 mm[Hg] e CW1 ([facility]) Body mass index (BMI) [Ratio] 46.517 kg/m2 46.5 17 kg/m2 eCW1 ([facility]) Body height 66 [in_i] 66 [in_i] eCW1 ([facility]) Body weight 130.73 kg 130.73 kg eCW1 ([facility]) Body weight 288.2 [lb_av] 288.2 [lb_av] eCW1 ([facility]) Diastolic blood pressure 0 mm[Hg] Normal (applies to non-numeric results) 0 mm[Hg] [facility] ([facility]) Systolic blood pressure 0 mm[Hg] Normal (applies t o non-numeric results) 0 mm[Hg] [facility] ([facility]) Body mass index (BMI) [Ratio] 0.00 kg/m2 No rmal (applies to non-numeric results) 0.00 kg/m2 [facility] ([facility]) Body weight Measured 0.00 lbs Normal (applies to n on-numeric results) 0.00 lbs [facility] ([facility]) Body height 0.00 in Normal (applies to non-numeric resu lts) 0.00 in [facility] ([facility]) Diastolic blood pressure 76 mm[Hg] 76 mm[Hg] eCW1 ([facility]) Systolic blood pressure 136 mm[Hg] 136 mm[Hg] e CW1 ([facility]) Body mass index (BMI) [Ratio] 46.323 kg/m2 46.3 23 kg/m2 eCW1 ([facility]) Body height 66 [in_i] 66 [in_i] eCW1 ([facility]) Body weight 287 [lb_av] 287 [lb_av] eCW1 ([facility]) Diastolic blood pressure 72 mm[Hg] 72 mm[Hg] eCW1 ([facility]) Systolic blood pressure 124 mm[Hg] 124 mm[Hg] e CW1 ([facility]) Body mass index (BMI) [Ratio] 46.162 kg/m2 46.1 62 kg/m2 W1 ([facility]) Body height 66 [in_i] 66 [in_i] eCW1 ([facility]) Body weight 129.73 kg 129.73 kg eCW1 ([facility]) Body weight 286 [lb_av] 286 [lb_av] eCW1 ([facility]) Diastolic blood pressure 0 mm[Hg] Normal (applies to non-numeric results) 0 mm[Hg] [facility] ([facility]) Systolic blood pressure 0 mm[Hg] Normal (applies t o non-numeric results) 0 mm[Hg] [facility] ([facility]) Body mass index (BMI) [Ratio] 0.00 kg/m2 No rmal (applies to non-numeric results) 0.00 kg/m2 [facility] ([facility]) Body weight Measured 0.00 lbs Normal (applies to n on-numeric results) 0.00 lbs [facility] ([facility]) Body height 0.00 in Normal (applies to non-numeric resu lts) 0.00 in [facility] ([facility]) Diastolic blood pressure 76 mm[Hg] 76 mm[Hg] eCW1 ([facility]) Systolic blood pressure 110 mm[Hg] 110 mm[Hg] e CW1 ([facility]) Body mass index (BMI) [Ratio] 45.839 kg/m2 45.8 39 kg/m2 W1 ([facility]) Body height 66 [in_i] 66 [in_i] eCW1 ([facility]) Body weight 284.0 [lb_av] 284.0 [lb_av] eCW1 ([facility]) Diastolic blood pressure 0 mm[Hg] Normal (applies to non-numeric results) 0 mm[Hg] [facility] ([facility] Systolic blood pressure 0 mm[Hg] Normal (applies t o non-numeric results) 0 mm[Hg] [facility] ([facility] Body mass index (BMI) [Ratio] 0.00 kg/m2 No rmal (applies to non-numeric results) 0.00 kg/m2 [facility] ([facility]) Body weight Measured 0.00 lbs Normal (applies to n on-numeric results) 0.00 lbs [facility] ([facility]) Body height 0.00 in Normal (applies to non-numeric resu lts) 0.00 in [facility] ([facility]) Diastolic blood pressure 0 mm[Hg] Normal (applies to non-numeric results) 0 mm[Hg] [facility] ([facility]) Systolic blood pressure 0 mm[Hg] Normal (applies t o non-numeric results) 0 mm[Hg] [facility] ([facility] Body mass index (BMI) [Ratio] 0.00 kg/m2 No rmal (applies to non-numeric results) 0.00 kg/m2 [facility] ([facility]) Body weight Measured 0.00 lbs Normal (applies to n on-numeric results) 0.00 lbs [facility] ([facility] Body height 0.00 in Normal (applies to non-numeric resu lts) 0.00 in [facility] ([facility]) Diastolic blood pressure 0 mm[Hg] Normal (applies to non-numeric results) 0 mm[Hg] [facility] ([facility]) Systolic blood pressure 0 mm[Hg] Normal (applies t o non-numeric results) 0 mm[Hg] [facility] ([facility] Body mass index (BMI) [Ratio] 0.00 kg/m2 No rmal (applies to non-numeric results) 0.00 kg/m2 [facility] ([facility]) Body weight Measured 0.00 lbs Normal (applies to n on-numeric results) 0.00 lbs [facility] ([facility] Body height 0.00 in Normal (applies to non-numeric resu lts) 0.00 in [facility] ([facility]) Diastolic blood pressure 0 mm[Hg] Normal (applies to non-numeric results) 0 mm[Hg] [facility] ([facility]) Systolic blood pressure 0 mm[Hg] Normal (applies t o non-numeric results) 0 mm[Hg] [facility] ([facility]) Body mass index (BMI) [Ratio] 0.00 kg/m2 No rmal (applies to non-numeric results) 0.00 kg/m2 [facility] ([facility]) Body weight Measured 0.00 lbs Normal (applies to n on-numeric results) 0.00 lbs [facility] ([facility]) Body height 0.00 in Normal (applies to non-numeric resu lts) 0.00 in [facility] ([facility]) Body weight 128.369 kg 128.369 kg [facility] ([facility]) Body weight 283.00 [lb_av] 283.00 [lb_av] [facility] T ([facility]) Oxygen saturation in Arterial blood by Pulse oximetry 98 % 98 % [facility] ([facility]) Respiratory rate 18 /min 18 /min [facility] ( [facility]) Body temperature 97.8 [degF] 97.8 [degF] [facility] ([facility]) Heart rate 64 /min 64 /min [facility] ([facility]) Diastolic blood pressure 82 mm[Hg] 82 mm[Hg] [facility] Systolic blood pressure 134 mm[Hg] 134 mm[Hg] [facility] ([facility]) Diastolic blood pressure 0 mm[Hg] Normal (applies to non-numeric results) 0 mm[Hg] [facility] ([facility]) Systolic blood pressure 0 mm[Hg] Normal (applies t o non-numeric results) 0 mm[Hg] [facility] ([facility]) Body mass index (BMI) [Ratio] 0.00 kg/m2 No rmal (applies to non-numeric results) 0.00 kg/m2 [facility] ([facility]) Body weight Measured 0.00 lbs Normal (applies to n on-numeric results) 0.00 lbs [facility] ([facility]) Body height 0.00 in Normal (applies to non-numeric resu lts) 0.00 in [facility] ([facility]) Body weight 128.822 kg 128.822 kg [facility] ([facility]) Body weight 284.00 [lb_av] 284.00 [lb_av] [facility] T ([facility]) Oxygen saturation in Arterial blood by Pulse oximetry 99 % 99 % [facility] ([facility]) Respiratory rate 16 /min 16 /min [facility] Body temperature 97.6 [degF] 97.6 [degF] [facility] ([facility]) Heart rate 66 /min 66 /min [facility] ([facility]) Diastolic blood pressure 82 mm[Hg] 82 mm[Hg] [facility] ([facility]) Systolic blood pressure 122 mm[Hg] 122 mm[Hg] [facility] ([facility]) Diastolic blood pressure 0 mm[Hg] Normal (applies to non-numeric results) 0 mm[Hg] [facility] ([facility]) Systolic blood pressure 0 mm[Hg] Normal (applies t o non-numeric results) 0 mm[Hg] [facility] ([facility] Body mass index (BMI) [Ratio] 0.00 kg/m2 No rmal (applies to non-numeric results) 0.00 kg/m2 [facility] ([facility]) Body weight Measured 0.00 lbs Normal (applies to n on-numeric results) 0.00 lbs [facility] ([facility]) Body height 0.00 in Normal (applies to non-numeric resu lts) 0.00 in [facility] ([facility]) Diastolic blood pressure 0 mm[Hg] Normal (applies to non-numeric results) 0 mm[Hg] [facility] ([facility]) Systolic blood pressure 0 mm[Hg] Normal (applies t o non-numeric results) 0 mm[Hg] [facility] ([facility] Body mass index (BMI) [Ratio] 0.00 kg/m2 No rmal (applies to non-numeric results) 0.00 kg/m2 [facility] ([facility]) Body weight Measured 0.00 lbs Normal (applies to n on-numeric results) 0.00 lbs [facility] ([facility] [facility]) Body height 0.00 in Normal (applies to non-numeric resu lts) 0.00 in [facility] ([facility]) Diastolic blood pressure 0 mm[Hg] Normal (applies to non-numeric results) 0 mm[Hg] [facility] ([facility]) Systolic blood pressure 0 mm[Hg] Normal (applies t o non-numeric results) 0 mm[Hg] [facility] ([facility]) Body mass index (BMI) [Ratio] 0.00 kg/m2 No rmal (applies to non-numeric results) 0.00 kg/m2 [facility] ([facility]) Body weight Measured 0.00 lbs Normal (applies to n on-numeric results) 0.00 lbs [facility] ([facility]) Body height 0.00 in Normal (applies to non-numeric resu lts) 0.00 in [facility] ([facility]) Diastolic blood pressure 82 mm[Hg] 82 mm[Hg] eCW1 ([facility]) Systolic blood pressure 128 mm[Hg] 128 mm[Hg] e CW1 ([facility]) Body temperature 97.8 [degF] 97.8 [degF] eCW1 ( [facility]) Respiratory rate 18 /min 18 /min eCW1 ([facility]) Heart rate 87 /min 87 /min eCW1 ([facility]) Body mass index (BMI) [Ratio] 45.74 kg/m2 45.74 kg/m2 eCW1 ([facility]) Body height 66 [in_us] 66 [in_us] eCW1 ([facility]) Body weight Measured 283.4 [lb_av] 283.4 [lb_av ] eCW1 ([facility]) Body weight 126.101 kg 126.101 kg MEDENT ([facility]) Body weight 278.00 [lb_av] 278.00 [lb_av] MEDEN T ([facility]) appox unable to get on scale today Oxygen saturation in Arterial blood by Pulse oximetry 97 % 97 % MEDENT ([facility]) Respiratory rate 18 /min 18 /min MEDENT ( [facility]) Body temperature 98.6 [degF] 98.6 [degF] MEDENT ([facility]) Heart rate 86 /min 86 /min MEDENT ([facility]) Diastolic blood pressure 80 mm[Hg] 80 mm[Hg] MEDENT ([facility]) Systolic blood pressure 130 mm[Hg] 130 mm[Hg] M EDENT ([facility]) Body surface area 2.30 m2 2.30 m2 MEDENT ([facility]) Body mass index (BMI) [Ratio] 44.9 kg/m2 44.9 k g/m2 [facility] Body height 66 [in_i] 66 [in_i] MEDENT ([facility]) 5'6" Body height 66 [in_i] 66 [in_i] MEDENT ([facility]) 5'6" Body weight 126.214 kg 126.214 kg MEDENT ([facility]) Body weight 278.25 [lb_av] 278.25 [lb_av] MEDEN T ([facility]) Oxygen saturation in Arterial blood by Pulse oximetry 99 % 99 % MEDENT ([facility]) Respiratory rate 16 /min 16 /min MEDENT ( [facility]) Body temperature 97.1 [degF] 97.1 [degF] MEDENT ([facility]) Heart rate 68 /min 68 /min MEDENT ([facility]) Diastolic blood pressure 78 mm[Hg] 78 mm[Hg] MEDENT ([facility]) Systolic blood pressure 120 mm[Hg] 120 mm[Hg] M EDENT ([facility]) Body surface area 2.30 m2 2.30 m2 MEDENT ([facility]) Body mass index (BMI) [Ratio] 44.9 kg/m2 44.9 k g/m2 [facility] ([facility]) Diastolic blood pressure 0 mm[Hg] Normal (applies to non-numeric results) 0 mm[Hg] [facility] ([facility]) Systolic blood pressure 0 mm[Hg] Normal (applies t o non-numeric results) 0 mm[Hg] [facility] ([facility]) Body mass index (BMI) [Ratio] 0.00 kg/m2 No rmal (applies to non-numeric results) 0.00 kg/m2 [facility] ([facility]) Body weight Measured 0.00 lbs Normal (applies to n on-numeric results) 0.00 lbs [facility] ([facility]) Body height 0.00 in Normal (applies to non-numeric resu lts) 0.00 in [facility] ([facility]) ID Date Data Source [id number] 03/02/2020 10:20:45 AM EST [facility] Name Value Range Interpretation Code Description Data Source(s) TRANSFER FROM [facility] Patient Treatment Plan of Care Planned Activity Planned Date Details Description Data Source (s) Sumatriptan 100 MG Oral Tablet 04/04/2020 12:00:00 AM EST eCW1 ([facility]) Metronidazole 500 MG Oral Tablet 03/10/2020 12:00:00 AM EST eCW1 ([facility]) Metronidazole 500 MG Oral Tablet 03/10/2020 12:00:00 AM EST eCW1 ([facility]) Acetaminophen 325 MG / butalbital 50 MG / Caffeine 40 MG Oral Capsule [[facility]] 02/28/2020 12:00:00 AM EST eCW1 ([facility]) Acetaminophen 325 MG / butalbital 50 MG / Caffeine 40 MG Oral Capsule [[facility]] 02/28/2020 12:00:00 AM EST eCW1 ([facility])
[2020-04-23] MEDS ORDERED: CIPR-249 PO (21:14)
[2020-04-23] MEDS ORDERED: MIRA3350 PO (21:14)
[2020-04-23] MEDS ORDERED: CIPROFLOXACIN 500MG TABLET PO ONE (21:15)
[2020-04-23 21:28] VITALS: BP 140/104
== END 2020-04-23 21:30 | disposition home or self-care (01) ==
LOC: M ED 17:07
DX: N39.0 Urinary tract infection, site not specified (principal); K59.00 Constipation, unspecified; K21.9 Gastro-esophageal reflux disease without esophagitis; I10 Essential (primary) hypertension; F25.9 Schizoaffective disorder, unspecified; Z91.013 Allergy to seafood; Z91.048 Other nonmedicinal substance allergy status; Z86.19 Personal history of other infectious and parasitic diseases; Z88.8 Allergy status to other drugs, medicaments and biological substances; Z87.891 Personal history of nicotine dependence
CPT/HCPCS: 74176; 80047; 80076; 81001; 83690; 85025; 87086; 96374; 99284; J1885

== ENCOUNTER 2020-05-06 19:37 | Emergency (ER) | payer OTHER ==
[~2020-05-06] VITALS: Ht 167.6 cm; Wt 130.5 kg
[~2020-05-06 19:37] MED LIST changes: +CIPR-249 PO; +MIRA3350 PO; -VITA-122 PO; +VITA-168 PO
[2020-05-06] MEDS ORDERED: AIMO70IN SC (19:49)
[2020-05-06] MEDS ORDERED: EPIP0.3I2 IM (19:49)
[2020-05-06] MEDS ORDERED: LEXA5TAB13 PO (19:49)
[2020-05-06] MEDS ORDERED: LYRI75CA PO (19:49)
--- NOTE | 2020-05-06 20:53 | REPVR ---
PROCEDURE INFORMATION: Exam: XR Right Hip with Pelvis when Performed Exam date and time: 05/06/2020 8:42 PM Age: 39 years old Clinical indication: Other: Hip pain, remote traumatic injury TECHNIQUE: Imaging protocol: XR Right hip with pelvis when performed. Views: 2 or 3 views. COMPARISON: CT ABD PELVIS W/O CONTRAST 04/23/2020 6:25 PM FINDINGS: Bones/joints: Unremarkable. No acute fracture. Soft tissues: Unremarkable. IMPRESSION: No acute findings. Electronically signed by: Butch Maza On 05/06/2020 20:54:08 PM
--- NOTE | 2020-05-06 20:54 | REPVR ---
PROCEDURE INFORMATION: Exam: US Duplex Right Lower Extremity Veins, Limited Exam date and time: 05/06/2020 8:47 PM Age: 39 years old Clinical indication: Pain; Leg, upper; Right; Additional info: Pain, swelling. R/O dvt TECHNIQUE: Imaging protocol: Real-time Duplex ultrasound of the Right Lower Extremity with 2-D nunez scale, color Doppler flow and spectral waveform analysis with image documentation. Limited exam was focused on the right lower extremity veins. COMPARISON: US Duplex, Ext,LOWER veins,unilat 05/26/2017 1:24 PM FINDINGS: Right deep veins: Unremarkable. The common femoral, femoral, proximal profunda femoral and popliteal veins are patent without thrombus. Normal Doppler waveforms. Normal compressibility and/or augmentation response. Right superficial veins: Unremarkable. Saphenofemoral junction is patent without thrombus. Soft tissues: Unremarkable. IMPRESSION: No evidence of deep vein thrombosis. Electronically signed by: Butch Maza On 05/06/2020 20:54:43 PM
[2020-05-06] MEDS ORDERED: NAPR-885 PO (21:57)
[2020-05-06 22:09] VITALS: BP 166/82
== END 2020-05-06 22:11 | disposition home or self-care (01) ==
LOC: M ED 19:37
DX: M54.5 Low back pain (principal); R60.9 Edema, unspecified; M25.551 Pain in right hip; Z79.899 Other long term (current) drug therapy; Z88.8 Allergy status to other drugs, medicaments and biological substances; Z88.6 Allergy status to analgesic agent; Z91.013 Allergy to seafood; Z91.048 Other nonmedicinal substance allergy status

== ENCOUNTER → 2020-06-19 | Outpatient (CLI) | payer OTHER ==
[~2020-06-19] MED LIST changes: +ACYC1TAB4 PO; -ACYC800T PO; +AIMO70IN SC; +EPIP0.3I2 IM; +LEXA5TAB13 PO; +LYRI75CA PO
[2020-06-19 11:39] LABS: BASO # 0.1 10^3/uL (0.0-0.2); EOS # 0.6 10^3/uL (0.0-0.5); EOS % 8.1 % (0.0-3.0); HEMATOCRIT 42.2 % (36.0-47.0); HEMOGLOBIN 13.5 g/dl (12.0-15.5); LYMPH % 28.2 % (24.0-44.0); MEAN CORPUSCULAR HEMOGLOBIN 28.9 pg (27.0-33.0); MEAN CORPUSCULAR VOLUME 90.4 fl (80.0-96.0); MONO # 0.4 10^3/uL (0.0-0.8); MONO % 5.5 % (2.0-8.0); NEUTROPHILS % 56.9 % (36.0-66.0); PLATELET COUNT, AUTOMATED 238 10^3/uL (150-450); RED BLOOD COUNT 4.67 10^6/uL (4.00-5.40); WHITE BLOOD COUNT 7.1 10^3/uL (4.0-10.0)
--- NOTE | 2020-06-19 12:08 | REP ---
INDICATION: OTHER BURSITIS OF HIP, RIGHT HIP COMPARISON: None. TECHNIQUE: AP and frog-lateral views of the right hip FINDINGS: Osseous structures, joint spaces, and surrounding soft tissues are normal. No acute or healed injury. No degenerative changes. IMPRESSION: Normal right hip radiographs <Electronically signed by Alok Virk > 06/19/20 [id number]
--- NOTE | 2020-06-19 12:10 | REP ---
INDICATION: OTHER BURSITIS OF HIP, RIGHT HIP COMPARISON: 03/23/2019 TECHNIQUE: AP, lateral, bilateral oblique, and coned-down views of the lumbar spine. FINDINGS: Alignment and lordosis maintained. Vertebral bodies are intact. No acute fracture/compression injury or subluxation. No obvious spondylolysis or spondylolisthesis. Mild focal disc space narrowing at L5-S1. IMPRESSION: Mild disc space narrowing at L5-S1. Otherwise normal examination. <Electronically signed by Alok Virk > 06/19/20 [id number]
--- NOTE | 2020-06-19 12:10 | REP ---
INDICATION: OTHER BURSITIS OF HIP, RIGHT HIP COMPARISON: None. TECHNIQUE: AP, lateral, and swimmers views. FINDINGS: Alignment and kyphosis is maintained. Vertebral bodies intact. No acute fracture / compression injury or subluxation. No degenerative changes. Paravertebral soft tissues are normal. IMPRESSION: Normal thoracic spine series. <Electronically signed by Alok Virk > 06/19/20 [id number]
--- NOTE | 2020-06-19 12:11 | REP ---
INDICATION: OTHER BURSITIS OF HIP, RIGHT HIP COMPARISON: None. TECHNIQUE: Single AP view of the pelvis. FINDINGS: Single AP view of the pelvis demonstrates normal symmetric appearance to the osseous structures, joint spaces and surrounding soft tissues. No evidence for acute fracture or dislocation. No degenerative changes. IMPRESSION: Normal pelvic radiograph. <Electronically signed by Alok Virk > 06/19/20 [id number]
[2020-06-19 12:24] LABS: ERYTHROCYTE SEDIMENTATION RATE 41 mm/hr (0-20)
[2020-06-19 14:00] LABS: ALBUMIN 3.5 GM/DL (3.2-5.2); ALT/SGPT 29 U/L (12-78); BILIRUBIN,TOTAL 0.4 MG/DL (0.2-1.0); BLOOD UREA NITROGEN 22 MG/DL (7-18); C REACTIVE PROTEIN QUANTITATIV 1.13 MG/DL (0.00-0.30); CALCIUM LEVEL 9.1 MG/DL (8.5-10.1); CARBON DIOXIDE LEVEL 28 MEQ/L (21-32); CHLORIDE LEVEL 106 MEQ/L (98-107); CREATININE FOR GFR 0.83 MG/DL (0.55-1.30); GLOMERULAR FILTRATION RATE > 60.0 (>60); GLUCOSE, FASTING 83 MG/DL (70-100); POTASSIUM SERUM 4.3 MEQ/L (3.5-5.1); RHEUMATOID FACTOR QUANT < 10.0 IU/ML (<15.0); SODIUM LEVEL 139 MEQ/L (136-145); TOTAL PROTEIN 7.1 GM/DL (6.4-8.2)
[2020-06-20 16:21] LABS: ANTI DOUBLE STRAND-DNA AB 32 IU/mL (0-9); ANTINUCLEAR ANTIBODIES DIRECT Positive (Negative); RNP ANTIBODIES <0.2 AI (0.0-0.9); SJOGREN'S ANTI SS-A <0.2 AI (0.0-0.9); SJOGREN'S ANTI SS-B <0.2 AI (0.0-0.9); SMITH ANTIBODIES <0.2 AI (0.0-0.9)
== END ==
LOC: M LAB 10:19
PROVIDERS: ATTEND Family Medicine
DX: M70.71 Other bursitis of hip, right hip (principal)

== ENCOUNTER 2020-06-23 13:17 | Emergency (ER) | payer OTHER ==
[~2020-06-23] VITALS: Ht 167.6 cm; Wt 133.5 kg
--- NOTE | 2020-06-23 14:09 | REP ---
INDICATION: chest pain-central. COMPARISON: Comparison chest x-ray 24 June 2019. TECHNIQUE: Two views.. FINDINGS: The heart is at the upper range of normal in size. Cardiothoracic ratio is 49.0%. Pulmonary vasculature is not increased. Pleural angles are sharp. Lung machado are well inflated and clear. No bony abnormality. IMPRESSION: Borderline heart size. Otherwise negative chest x-ray. <Electronically signed by Freddie Ortiz > 06/23/20 [id number]
[2020-06-23 14:42] LABS: BASO # 0.1 10^3/uL (0.0-0.2); BASO % 0.9 % (0.0-1.0); EOS # 0.4 10^3/uL (0.0-0.5); EOS % 6.3 % (0.0-3.0); HEMATOCRIT 40.9 % (36.0-47.0); HEMOGLOBIN 13.3 g/dl (12.0-15.5); LYMPH % 29.3 % (24.0-44.0); MEAN CORPUSCULAR HEMOGLOBIN 29.4 pg (27.0-33.0); MEAN CORPUSCULAR HGB CONC 32.5 g/dl (32.0-36.5); MEAN CORPUSCULAR VOLUME 90.3 fl (80.0-96.0); MONO # 0.5 10^3/uL (0.0-0.8); NEUTROPHILS # 3.9 10^3/uL (1.5-8.5); NEUTROPHILS % 56.1 % (36.0-66.0); PLATELET COUNT, AUTOMATED 244 10^3/uL (150-450); RED BLOOD COUNT 4.53 10^6/uL (4.00-5.40)
[2020-06-23 14:47] LABS: APPEARANCE, URINE CLOUDY (CLEAR); BACTERIA, URINE AUTO NEGATIVE (NEGATIVE); BILIRUBIN, URINE AUTO NEGATIVE (NEGATIVE); BLOOD, URINE BLOOD 3+ (NEGATIVE); COLOR, URINE YELLOW (YELLOW); GLUCOSE, URINE (UA) AUTO NEGATIVE (NEGATIVE); KETONE, URINE AUTO NEGATIVE (NEGATIVE); LEUKOCYTE ESTERASE, URINE AUTO NEGATIVE (NEGATIVE); NITRITE, URINE AUTO NEGATIVE (NEGATIVE); PROTEIN, URINE AUTO 1+ mg/dL (NEGATIVE); RBC, URINE AUTO TNTC /HPF (0-3); SPECIFIC GRAVITY URINE AUTO 1.025 (1.002-1.035); SQUAMOUS EPITHELIAL CELL UR AU 1 /HPF (0-6); UROBILINOGEN, URINE AUTO 0.2 mg/dL (0.0-2.0); WBC, URINE AUTO 1 /HPF (0-3)
[2020-06-23 15:14] LABS: BLOOD UREA NITROGEN 19 MG/DL (7-18); CALCIUM LEVEL 9.1 MG/DL (8.5-10.1); CARBON DIOXIDE LEVEL 29 MEQ/L (21-32); CHLORIDE LEVEL 109 MEQ/L (98-107); CK-MB VALUE MASS 2.1 NG/ML (<3.6); CPK CREATINE PHOSPHOKINASE 71 U/L (26-192); CREATININE FOR GFR 0.86 MG/DL (0.55-1.30); FREE T4 0.86 NG/DL (0.76-1.46); GLOMERULAR FILTRATION RATE > 60.0 (>60); GLUCOSE, FASTING 74 MG/DL (70-100); MB/CK RELATIVE INDEX 2.96 (< OR =4); POTASSIUM SERUM 3.9 MEQ/L (3.5-5.1); SODIUM LEVEL 143 MEQ/L (136-145); TROPONIN I < 0.02 NG/ML (< 0.10)
[2020-06-23 17:35] LABS: NT-PRO BNP 43 PG/ML (<125)
[2020-06-23 17:36] VITALS: BP 167/89
--- NOTE | 2020-06-24 06:22 | ECGEPIP ---
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 Order Number: [id number] Reading MD: Ankush Downing Measurements Intervals [place] Rate: 68 P: 35 HI: 138 QRS: 21 QRSD: 92 T: 37 QT: 404 QTc: 429 Interpretive Statements Normal sinus rhythm Similar to tracing done 08-26-18 Electronically Signed on 06-24-2020 6:22:01 EDT by Ankush Downing
== END 2020-06-23 17:51 | disposition home or self-care (01) ==
LOC: M ED 13:17
DX: R53.83 Other fatigue (principal); R07.89 Other chest pain; I10 Essential (primary) hypertension; J45.909 Unspecified asthma, uncomplicated; F25.9 Schizoaffective disorder, unspecified; G43.909 Migraine, unspecified, not intractable, without status migrainosus; K21.9 Gastro-esophageal reflux disease without esophagitis; R41.3 Other amnesia; Z91.5 Personal history of self-harm; Z79.899 Other long term (current) drug therapy; Z88.5 Allergy status to narcotic agent; Z88.8 Allergy status to other drugs, medicaments and biological substances; Z91.018 Allergy to other foods; Z91.048 Other nonmedicinal substance allergy status

== ENCOUNTER 2020-09-05 16:53 | Emergency (ER) | payer OTHER ==
[~2020-09-05] VITALS: Ht 167.6 cm; Wt 135.0 kg
[2020-09-05 16:54] VITALS: BP 176/87
== END 2020-09-05 21:58 | disposition left against medical advice (07) ==
LOC: M ED 16:53
DX: Z53.21 Procedure and treatment not carried out due to patient leaving prior to being seen by health care provider (principal)

== ENCOUNTER → 2020-09-28 | Outpatient (REF) | payer OTHER ==
[2020-09-28 17:56] LABS: TOTAL PROTEIN,RANDOM URINE 12.4 MG/DL (0.0-12.0)
[2020-09-28 18:23] LABS: APPEARANCE, URINE HAZY (CLEAR); BACTERIA, URINE AUTO NEGATIVE (NEGATIVE); BILIRUBIN, URINE AUTO NEGATIVE (NEGATIVE); BLOOD, URINE BLOOD 3+ (NEGATIVE); COLOR, URINE YELLOW (YELLOW); GLUCOSE, URINE (UA) AUTO NEGATIVE (NEGATIVE); KETONE, URINE AUTO NEGATIVE (NEGATIVE); LEUKOCYTE ESTERASE, URINE AUTO NEGATIVE (NEGATIVE); NITRITE, URINE AUTO NEGATIVE (NEGATIVE); PROTEIN, URINE AUTO NEGATIVE (NEGATIVE); RBC, URINE AUTO 31 /HPF (0-3); SPECIFIC GRAVITY URINE AUTO 1.021 (1.002-1.035); SQUAMOUS EPITHELIAL CELL UR AU 1 /HPF (0-6); UROBILINOGEN, URINE AUTO 0.2 mg/dL (0.0-2.0); WBC, URINE AUTO 0 /HPF (0-3)
== END ==
LOC: M SFHCRHEU 14:18
PROVIDERS: ATTEND Internal Medicine
DX: R76.8 Other specified abnormal immunological findings in serum (principal); M79.10 Myalgia, unspecified site; M25.40 Effusion, unspecified joint

== ENCOUNTER → 2020-10-02 | Outpatient (CLI) | payer OTHER ==
--- NOTE | 2020-10-02 13:41 | REP ---
INDICATION: OTHER SPECIFIED ABNORMAL IMMUNOLOGICAL FINDINGS IN SERUM. COMPARISON: Right ankle cuff of 05/09/2017. TECHNIQUE: Four views of both ankles were obtained. FINDINGS: Four views of the right ankle demonstrate nonspecific soft tissue swelling about the ankle, not significantly changed. The ankle, subtalar, calcaneocuboid and talonavicular joints are normal. There is no evidence of fracture or dislocation. There is a small plantar spur. Four views of the left ankle demonstrate nonspecific soft tissue swelling about the ankle. The ankle, subtalar, calcaneocuboid and talonavicular joints are normal. There is no evidence of fracture or dislocation. There is a small plantar spur. IMPRESSION: 1. Nonspecific soft tissue swelling about both ankles. 2. Bilateral plantar spurs. <Electronically signed by Gustavo Quiñonez > 10/02/20 [id number]
--- NOTE | 2020-10-02 13:43 | REP ---
INDICATION: JOINT EFFUSION OF MULTIPLE SITES/ LABS 1ST, X-RAY 2ND. COMPARISON: None. TECHNIQUE: Four views of both wrists were obtained. FINDINGS: Four views of both wrists demonstrate no evidence of fracture or dislocation. There are no joint space abnormalities. There is no evidence of chondrocalcinosis. The extra-articular soft tissues are normal. IMPRESSION: Normal bilateral wrists. <Electronically signed by Gustavo Quiñonez > 10/02/20 [id number]
--- NOTE | 2020-10-02 13:46 | REP ---
INDICATION: OTHER SPECIFIED ABNORMAL IMMUNOLOGICAL FINDINGS IN SERUM. COMPARISON: None. TECHNIQUE: Four views of both hands were obtained. FINDINGS: There is no evidence of fracture, subluxation or dislocation. There are no joint space abnormalities. The periarticular soft tissues are normal. IMPRESSION: Normal bilateral hands. <Electronically signed by Gustavo Quiñonez > 10/02/20 [id number]
[2020-10-02 13:51] LABS: BASO % 0.4 % (0.0-1.0); EOS # 0.4 10^3/uL (0.0-0.5); EOS % 5.6 % (0.0-3.0); HEMATOCRIT 39.2 % (36.0-47.0); HEMOGLOBIN 12.9 g/dl (12.0-15.5); LYMPH # 2.2 10^3/uL (1.5-5.0); LYMPH % 27.9 % (24.0-44.0); MEAN CORPUSCULAR HEMOGLOBIN 28.4 pg (27.0-33.0); MEAN CORPUSCULAR HGB CONC 32.9 g/dl (32.0-36.5); MEAN CORPUSCULAR VOLUME 86.3 fl (80.0-96.0); MONO # 0.5 10^3/uL (0.0-0.8); MONO % 6.4 % (2.0-8.0); NEUTROPHILS # 4.6 10^3/uL (1.5-8.5); NEUTROPHILS % 59.4 % (36.0-66.0); PLATELET COUNT, AUTOMATED 212 10^3/uL (150-450); RED BLOOD COUNT 4.54 10^6/uL (4.00-5.40); WHITE BLOOD COUNT 7.8 10^3/uL (4.0-10.0)
[2020-10-02 14:33] LABS: C REACTIVE PROTEIN QUANTITATIV 1.67 MG/DL (0.00-0.30); MAGNESIUM LEVEL 2.1 MG/DL (1.8-2.4); PHOSPHORUS LEVEL 3.6 MG/DL (2.5-4.9); THYROID STIMULATING HORMONE 0.828 uIU/ML (0.358-3.740)
[2020-10-02 14:34] LABS: TOTAL 25(OH) VITAMIN D 24.7 NG/ML (30.0-100.0)
[2020-10-02 14:45] LABS: ERYTHROCYTE SEDIMENTATION RATE 45 mm/hr (0-20)
== END ==
LOC: M LAB 12:14
PROVIDERS: ATTEND Internal Medicine
DX: M25.40 Effusion, unspecified joint (principal); R76.8 Other specified abnormal immunological findings in serum; M79.10 Myalgia, unspecified site; M77.31 Calcaneal spur, right foot; M77.32 Calcaneal spur, left foot

== ENCOUNTER → 2020-10-02 | Outpatient (REF) | payer OTHER ==
[~2020-10-02] MED LIST changes: +AERO1MIS2 XX; +AIMO70IN2; +ALBU83IN INH; +AZIT-12 PO; +FLUO10CA18; +MUCI60TA7 PO; +OMEP-173; -OMEP-218; +TESS100C PO; -VERA240T3 PO; +VERA240T64 PO
== END ==
LOC: M SFHCRHEU 10:50
PROVIDERS: ATTEND Internal Medicine
DX: R76.8 Other specified abnormal immunological findings in serum (principal); M79.10 Myalgia, unspecified site; M25.40 Effusion, unspecified joint

== ENCOUNTER → 2020-10-21 | Outpatient (CLI) | payer OTHER ==
[~2020-10-21] MED LIST changes: -AERO1MIS2 XX; -AIMO70IN2; -ALBU83IN INH; -AZIT-12 PO; -FLUO10CA18; -MUCI60TA7 PO; -OMEP-173; +OMEP-218; -TESS100C PO; +VERA240T3 PO; -VERA240T64 PO
== END ==
LOC: M LAB 10:26
PROVIDERS: ATTEND Internal Medicine
DX: R76.8 Other specified abnormal immunological findings in serum (principal)

== ENCOUNTER 2020-12-04 16:46 | Emergency (ER) | payer MEDICAID, OTHER ==
[~2020-12-04] VITALS: Ht 167.6 cm; Wt 134.8 kg
[~2020-12-04 16:46] MED LIST changes: -VERA240T3 PO; +VERA240T71 PO
[2020-12-04] MEDS ORDERED: AIMO70IN2 (17:11)
[2020-12-04] MEDS ORDERED: ALBUTEROL 90 MCG/ACT 8GM HFA INHALER INH ONE (18:45)
--- NOTE | 2020-12-04 19:15 | REP ---
INDICATION: cough, shortness of breath COMPARISON: 06/23/2020 TECHNIQUE: Portable AP view of the chest FINDINGS: The mediastinum and cardiac silhouette are stable and within normal limits for portable technique. The lung machado are clear without acute consolidation, effusion, or pneumothorax. Skeletal structures are intact. IMPRESSION: No acute cardiopulmonary process appreciated. <Electronically signed by Alok Virk > 12/04/201910
[2020-12-04 20:23] LABS: BASO # 0.1 10^3/uL (0.0-0.2); BASO % 0.7 % (0.0-1.0); EOS # 0.1 10^3/uL (0.0-0.5); EOS % 1.2 % (0.0-3.0); HEMOGLOBIN 14.2 g/dl (12.0-15.5); LYMPH # 1.1 10^3/uL (1.5-5.0); MEAN CORPUSCULAR HGB CONC 33.8 g/dl (32.0-36.5); MEAN CORPUSCULAR VOLUME 85.9 fl (80.0-96.0); MONO # 0.5 10^3/uL (0.0-0.8); MONO % 4.8 % (2.0-8.0); NEUTROPHILS # 7.9 10^3/uL (1.5-8.5); NEUTROPHILS % 81.9 % (36.0-66.0); PLATELET COUNT, AUTOMATED 209 10^3/uL (150-450); RED BLOOD COUNT 4.89 10^6/uL (4.00-5.40); WHITE BLOOD COUNT 9.7 10^3/uL (4.0-10.0)
[2020-12-04] MEDS ORDERED: ALBUTEROL SULFATE 2.5 MG/0.5 ML INH NEB SOLN NEB ONE (20:25)
[2020-12-04 20:46] LABS: ALBUMIN 3.5 GM/DL (3.2-5.2); ALT/SGPT 34 U/L (12-78); BILIRUBIN,TOTAL 0.5 MG/DL (0.2-1.0); BLOOD UREA NITROGEN 10 MG/DL (7-18); CALCIUM LEVEL 9.1 MG/DL (8.5-10.1); CARBON DIOXIDE LEVEL 26 MEQ/L (21-32); CHLORIDE LEVEL 108 MEQ/L (98-107); CK-MB VALUE MASS 1.5 NG/ML (<3.6); CPK CREATINE PHOSPHOKINASE 72 U/L (26-192); CREATININE FOR GFR 0.91 MG/DL (0.55-1.30); GLOMERULAR FILTRATION RATE > 60.0 (>58); GLUCOSE, FASTING 104 MG/DL (70-100); MB/CK RELATIVE INDEX 2.08 (< OR =4); POTASSIUM SERUM 3.8 MEQ/L (3.5-5.1); SODIUM LEVEL 142 MEQ/L (136-145); TOTAL PROTEIN 7.5 GM/DL (6.4-8.2); TROPONIN I < 0.02 NG/ML (< 0.10)
[2020-12-04] MEDS ORDERED: TESS100C PO (22:50)
[2020-12-04] MEDS ORDERED: BENZONATATE 100MG CAPSULE PO ONE (22:55)
[2020-12-04 22:56] VITALS: BP 143/76
--- NOTE | 2020-12-06 17:25 | ECGEPIP ---
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
== END 2020-12-04 23:10 | disposition home or self-care (01) ==
LOC: M ED 16:46
DX: J20.5 Acute bronchitis due to respiratory syncytial virus (principal); I10 Essential (primary) hypertension; G40.409 Other generalized epilepsy and epileptic syndromes, not intractable, without status epilepticus; Z79.899 Other long term (current) drug therapy; Z88.8 Allergy status to other drugs, medicaments and biological substances; Z91.018 Allergy to other foods; Z91.048 Other nonmedicinal substance allergy status; F17.210 Nicotine dependence, cigarettes, uncomplicated; F12.20 Cannabis dependence, uncomplicated

== ENCOUNTER 2020-12-18 14:59 | Emergency (ER) | payer OTHER ==
[~2020-12-18 14:59] MED LIST changes: +AIMO70IN2; +TESS100C PO; +VERA240T64 PO; -VERA240T71 PO
--- OUTSIDE RECORDS SUMMARY | 2020-12-18 15:04 | CCD | Continuity of Care Document ---
Author Author Leanna CAMARGO M.D. Organization Unknown Address [address] [place] [address] Phone [phone] Care Team Providers Care Air Cargo Specialist Supervisor Name Role Phone Trav Camargo M.D. AUTM [phone] [facility] Orthopedics AUTM [phone] [facility] AUTM [phone] Debra Canales SECURITIES ATTORNEY AUTM [phone] [facility] Rheumatology AUTM [phone] Tim Guthrie AUTM Unavailable [facility] Rheumatology AUTM [phone] [facility] Physical Therapy AUTM [phone] Kyaw Contreras MD AUTM [facility] Audiology & Physical Therapy AUTM [phone] [facility] Cardiology- [place] Office AUTM Problems Active Problems Provider Date Cluster B personality disorder Mercedes Martinez NP Onset: Mild mental handicap Mercedes Martinez NP Onset: 07/31/2016 Stimulant dependence Mercedes Martinez NP Onset: 07/31/2016 Vitamin D deficiency Trav Camargo MD Onset: 04/17/2017 Cannabis abuse, uncomplicated Kendell Turner, PARA MACHINE OPERATOR Onset: Alcohol abuse, uncomplicated Kendell Turner, PARA MACHINE OPERATOR Onset: Social History Type Date Description Comments Sex Unknown Tobacco Use Start: Unknown Never Smoked Cigarettes Tobacco Use Start: Unknown Never Smoked Cigars Tobacco Use Start: Unknown Never Smoked A Pipe Tobacco Use Start: Unknown Never Used Smokeless Tobacco ETOH Use Currently consumes alcohol 4 DRI NKS A WEEK Recreational Drug Use Marijuana User Tobacco Use Start: Unknown Smokes Marijuana Recreational Drug Use Cocaine Abuse Tobacco Use Start: Unknown End: Unknown Patient is a former smoker pt does not smoke anymore Recreational Drug Use Cannabis Abuse Exercise Type/Frequency Exercises regularly Tattoo/Piercing Pierced ears Tattoo/Piercing Pierced right eyebrow Tattoo/Piercing Tattoo Seat Belt/Car Seat Always uses seat belt Allergies and adverse reactions Active Allergies Criticality Reaction | Severity Comments Date Seafood Unable to assess criticality 07/18/2016 Amitriptyline Unable to assess criticality 07/18/2016 Nortriptyline Unable to assess criticality 07/18/2016 Atenolol Unable to assess criticality 07/18/2016 Risperdal Unable to assess criticality 07/18/2016 Geodon Unable to assess criticality 07/18/2016 FD&C Red 40 Retana Unable to assess criticality 07/18/2016 Angier Dye Unable to assess criticality 07/18/2016 Gabapentin Unable to assess criticality Urticaria | Moderate pt s tates 06/05/2017 Medications Active Medications SIG Qnty Indications Ordering Provide r Date Vitamin D 1000Unit Tablets 1 tablet by mouth daily 90tabs Trav Camargo MD 05/26/2019 Epinephrine 0.3mg/0. 3ML Solution Auto-Inject 1 unit injected as needed 2units Trav Camrago MD 01/12/2018 Pregabalin 75mg Capsules Take 1 Capsule By Mouth AT Night For 2 Weeks Then Take 1 Capsule Two Times A Day Maximum Daily Dose 2 Capsules Unknown Aimovig 70mg/ml Solution Auto-Inje ct Inject 1 ML 70 MG Subcutaneously Once A Month Unknown Lamotrigine 25mg Tablets Take One Tablet By Mouth Once Daily Unknown Escitalopram Oxalate 5mg Tablets Take One Tablet By Mouth Once Daily Unknown Naproxen 500mg Tablets Take One Tablet By Mouth Twice Daily Unknown Medications Administered in Office Medication SIG Qnty Indications Ordering Provider Date Ketorolac (Toradol) Inj 30MG/ML Injection Trav Camargo MD 06/16/19 21 Immunizations CPT Code Status Date Vaccine Lot # [id number] Given 12/03/2016 Influenza (>35 months) P.F. Vaccine [id number] Vital Signs Date Vital Result Comment 06/29/2020 2:48pm BP Systolic 146 mmHg Elevated BP Diastolic 80 mmHg Elevated Heart Rate 75 /min Body Temperature 96.8 F Respiratory Rate 18 /min O2 % BldC Oximetry 96 % Weight 299.00 lb Weight 135.626 kg Height 65 inches 5'5" BMI (Body Mass Index) 49.8 kg/m2 BSA (Body Surface Area) 2.35 m2 06/15/2020 2:30pm BP Systolic 140 mmHg BP Diastolic 70 mmHg Heart Rate 69 /min Body Temperature 98.2 F Respiratory Rate 18 /min O2 % BldC Oximetry 98 % Weight 292.00 lb Weight 132.451 kg Height 65 inches 5'5" BMI (Body Mass Index) 48.6 kg/m2 BSA (Body Surface Area) 2.32 m2 Results Test Acquired Date Facility Test Result H/L Range Note Comprehensive Metabolic Profil 12/04/2020 [facility] Glucose, Fasting 104 mg/dL High 70-100 Blood Urea Nitrogen 10 mg/dL Normal 7-18 Creatinine For GFR 0.91 mg/dL Normal 0.55-1.30 Glomerular Filtration Rate > 60.0 Normal >58 1 Sodium Level 142 mEq/L Normal 136-145 Potassium Serum 3.8 mEq/L Normal 3.5-5.1 Chloride Level 108 mEq/L High 98-107 Carbon Dioxide Level 26 mEq/L Normal 21-32 Anion Gap 8 mEq/L Normal 8-16 Calcium Level 9.1 mg/dL Normal 8.5-10.1 Ast/Sgot 21 U/L Normal 7-37 Alt/SGPT 34 U/L Normal 12-78 Alkaline Phosphatase 89 U/L Normal 45-117 Bilirubin,Total 0.5 mg/dL Normal 0.2-1.0 Total Protein 7.5 GM/DL Normal 6.4-8.2 Albumin 3.5 GM/DL Normal 3.2-5.2 Albumin/Globulin Ratio 0.9 Low 1.2-2.2 Cardiac Marker Panel 12/04/2020 [facility] CPK Creatine Phosphokinase 72 U/L Normal 26-192 CK-MB Value Mass 1.5 NG/ML Normal <3.6 MB/CK Relative Index 2.08 Normal < Or =4 2 Troponin I < 0.02 NG/ML Normal < 0.10 3 Respiratory Panel 12/04/2020 [facility] Respiratory Panel This respiratory <SEE NOTE> 4 CBC With Differential 12/04/2020 [facility] White Blood Count 9.7 10 Normal 4.0-10.0 Red Blood Count 4.89 10 Normal 4.00-5.40 Hemoglobin 14.2 g/dL Normal 12.0-15.5 Hematocrit 42.0 % Normal 36.0-47.0 Mean Corpuscular Volume 85.9 fl Normal 80.0-96.0 Mean Corpuscular Hemoglobin 29.0 pg Normal 27.0-33.0 Mean Corpuscular HGB Conc 33.8 g/dL Normal 32.0-36.5 Red Cell Distribution Width 13.4 % Normal 11.5-14.5 Platelet Count, Automated 209 10 Normal 150-450 Neutrophils % 81.9 % High 36.0-66.0 Lymph % 11.0 % Low 24.0-44.0 [place] % 4.8 % Normal 2.0-8.0 Eos % 1.2 % Normal 0.0-3.0 Baso % 0.7 % Normal 0.0-1.0 Immature Granulocyte % 0.4 % Normal 0-3.0 Nucleated Red Blood Cell % 0.0 % Normal 0-0 Neutrophils # 7.9 10 Normal 1.5-8.5 Lymph # 1.1 10 Low 1.5-5.0 [place] # 0.5 10 Normal 0.0-0.8 Eos # 0.1 10 Normal 0.0-0.5 Baso # 0.1 10 Normal 0.0-0.2 Beta-2 Glycoprotein 1 Loni Letha 10/21/2020 [facility] Beta-2 Glycoprotein I Loni Igg <9 Normal 0-20 5 Beta-2 Glycoprotein I Loni Iga <9 Normal 0-25 6 Beta-2 Glycoprotein I Loni Igm 10 Normal 0-32 7 Laboratory test finding 10/21/2020 [facility] Anti-Histone Antibodies 3.1 units High 0.0-0.9 8 Anti DS-Dna AB By Crithidia Negative Normal Negative 9 Janey Titer & Pattern Negative Normal . 10 Anti Scleroderma Antibodies <0.2 AI Normal 0.0-0.9 11 Anti-Cardiolipin Antibodies 10/21/2020 [facility] Cardiolipin Iga Antibody <9 APLU/mL Normal 0-11 12 Cardiolipin Igg Antibody 10 GPLU/mL Normal 0-14 13 Cardiolipin Igm Antibody 9 MPLU/mL Normal 0-12 14 Anti-Sjogrens A&B Antibodies 10/21/2020 [facility] C Ssa Sjogrens A <0.2 AI Normal 0.0-0.9 SSB Sjogrens B <0.2 AI Normal 0.0-0.9 Laboratory test finding 10/21/2020 [facility] Anti Centromere Antibody <0.2 AI Normal 0.0-0.9 15 Anti-U1 ENVIRONMENTAL COMPLIANCE INSPECTOR AB <20 units Normal <20 16 Anti Camargo(Sm) AB <20 units Normal <20 17 CBC With Differential 10/02/2020 [facility] White Blood Count 7.8 10 Normal 4.0-10.0 Red Blood Count 4.54 10 Normal 4.00-5.40 Hemoglobin 12.9 g/dL Normal 12.0-15.5 Hematocrit 39.2 % Normal 36.0-47.0 Mean Corpuscular Volume 86.3 fl Normal 80.0-96.0 Mean Corpuscular Hemoglobin 28.4 pg Normal 27.0-33.0 Mean Corpuscular HGB Conc 32.9 g/dL Normal 32.0-36.5 Red Cell Distribution Width 13.3 % Normal 11.5-14.5 Platelet Count, Automated 212 10 Normal 150-450 Neutrophils % 59.4 % Normal 36.0-66.0 Lymph % 27.9 % Normal 24.0-44.0 [place] % 6.4 % Normal 2.0-8.0 Eos % 5.6 % High 0.0-3.0 Baso % 0.4 % Normal 0.0-1.0 Immature Granulocyte % 0.3 % Normal 0-3.0 Nucleated Red Blood Cell % 0.0 % Normal 0-0 Neutrophils # 4.6 10 Normal 1.5-8.5 Lymph # 2.2 10 Normal 1.5-5.0 [place] # 0.5 10 Normal 0.0-0.8 Eos # 0.4 10 Normal 0.0-0.5 Baso # 0.0 10 Normal 0.0-0.2 Lupus Screen Confirmation 10/02/2020 [facility] Hexagonal Phase Phospholipid 0 sec Normal 0-11 Comment For Hexagonal Confirm1 (SEE NOTE) Normal . 18 Laboratory test finding 10/02/2020 [facility] Lupus Confirm Stago 1.27 High 0.00-1.20 19 Lupus Type Anticoagulant Scree 10/02/2020 [facility] PTT Lupus Type Anticoag Screen 1.4 High 0-1.2 20 Laboratory test finding 10/02/2020 [facility] Erythrocyte Sedimentation Rate 45 mm/hr High 0-20 Complement Total (CH50) > 60 U/mL Normal >41 21 Laboratory test finding 10/02/2020 [facility] Phosphorus Level 3.6 mg/dL Normal 2.5-4.9 22 CPK Creatine Phosphokinase 43 U/L Normal 26-192 2 3 Magnesium Level 2.1 mg/dL Normal 1.8-2.4 24 Iron (Fe) 50 g/dL Normal 50-170 25 Complement C3 148 mg/dL Normal 90-180 26 Complement C4 23 mg/dL Normal 10-40 27 Thyroid Stimulating Hormone 0.828 uIU/ML Normal 0.358-3.740 28 Vitamin B12 Level 710 pg/mL Normal 247-911 29 Total 25(Oh) Vitamin D 24.7 NG/ML Low 30.0-100.0 30 C Reactive Protein Quantitativ 1.67 mg/dL High 0.00-0.30 31 CBC W/Automated Diff 06/19/2020 [facility] White Blood Count 7.1 10 Normal 4.0-10.0 Red Blood Count 4.67 10 Normal 4.00-5.40 Hemoglobin 13.5 g/dL Normal 12.0-15.5 Hematocrit 42.2 % Normal 36.0-47.0 Mean Corpuscular Volume 90.4 fl Normal 80.0-96.0 Mean Corpuscular Hemoglobin 28.9 pg Normal 27.0-33.0 Mean Corpuscular HGB Conc 32.0 g/dL Normal 32.0-36.5 Red Cell Distribution Width 13.1 % Normal 11.5-14.5 Platelet Count, Automated 238 10 Normal 150-450 Neutrophils % 56.9 % Normal 36.0-66.0 Lymph % 28.2 % Normal 24.0-44.0 [place] % 5.5 % Normal 2.0-8.0 Eos % 8.1 % High 0.0-3.0 Baso % 1.0 % Normal 0.0-1.0 Immature Granulocyte % 0.3 % Normal 0-3.0 Nucleated Red Blood Cell % 0.0 % Normal 0-0 Neutrophils # 4.0 10 Normal 1.5-8.5 Lymph # 2.0 10 Normal 1.5-5.0 [place] # 0.4 10 Normal 0.0-0.8 Eos # 0.6 10 High 0.0-0.5 Baso # 0.1 10 Normal 0.0-0.2 Laboratory test finding 06/19/2020 [facility] Erythrocyte Sedimentation Rate 41 mm/hr High 0-20 C Reactive Protein Quantitativ 1.13 mg/dL High 0.00-0.30 32 Rheumatoid Factor Quant < 10.0 IU/mL Normal <15.0 33 Comprehensive Metabolic Profil 06/19/2020 [facility] Glucose, Fasting 83 mg/dL Normal 70-100 Blood Urea Nitrogen 22 mg/dL High 7-18 Creatinine For GFR 0.83 mg/dL Normal 0.55-1.30 Glomerular Filtration Rate > 60.0 Normal >60 3 4 Sodium Level 139 mEq/L Normal 136-145 Potassium Serum 4.3 mEq/L Normal 3.5-5.1 Chloride Level 106 mEq/L Normal 98-107 Carbon Dioxide Level 28 mEq/L Normal 21-32 Anion Gap 5 mEq/L Low 8-16 Calcium Level 9.1 mg/dL Normal 8.5-10.1 Ast/Sgot 17 U/L Normal 7-37 Alt/SGPT 29 U/L Normal 12-78 Alkaline Phosphatase 103 U/L Normal 45-117 Bilirubin,Total 0.4 mg/dL Normal 0.2-1.0 Total Protein 7.1 GM/DL Normal 6.4-8.2 Albumin 3.5 GM/DL Normal 3.2-5.2 Albumin/Globulin Ratio 1.0 Low 1.2-2.2 Antinuclear Antibodies 06/19/2020 [facility] Antinuclear Antibodies Direct Positive Abnormal Negative Anti Double Strand-Dna AB 32 IU/mL High 0-9 35 ENVIRONMENTAL COMPLIANCE INSPECTOR Antibodies <0.2 AI Normal 0.0-0.9 Camargo Antibodies <0.2 AI Normal 0.0-0.9 Sjogren's Anti SS-A <0.2 AI Normal 0.0-0.9 Sjogren's Anti SS-B <0.2 AI Normal 0.0-0.9 Janey Comment (SEE NOTE) Normal . 36 1 Units are mL/min/1.73 m2 Chronic Kidney Disease Staging per NKF: Stage I & II GFR >=60 Normal to Mildly Decreased Stage III GFR 30-59 Moderately Decreased Stage IV GFR 15-29 Severely Decreased Stage V GFR <15 Very Little GFR Left ESRD GFR <15 on SHADE HANGER 2 DIAGNOSIS CRITERIA MMB ng/ml Relative Index (RI) NON-AMI < or = 5 N/A RAYA ZONE > 5 < or = 4 AMI > 5 > 4 3 Troponin I Reference Interva l for [facility]CI [place] LOCI: 99th Percentile= 0.00-0.045 ng/ml Risk Stratification: <= 0.10 ng/ml Decreased Risk for Adverse Clinical Events. 0.10-1.50 ng/ml Increased Risk for Adv erse Clinical Events. Evaluation of additional criterion and/or repeat testing in 2-6 hours is suggested to rule out myocardial damage. >= 1.50 ng/ml Indicative of Myocardial Injury. 4 This respiratory PCR panel d etects Influenza A H1, H3 and 2009 H1 viruses, Influenza B virus, Resp iratory Syncytial Virus, Human metapneumovirus, Parainfluenza virus 1, 2, 3 and 4, Adenovirus, Rhinovirus/Enterovirus, Coronavirus HKU1, NL63, OC43, 229E and SARS-CoV-2 (COVID 19), Bordetella pertussis, Bordetella parapertussis, Mycoplasma pneumoniae and Chlamydia pneumoniae. POSITIVE by MULTIPLEXED NUCLEIC ACID PCR SARS-CoV-2 (COVID 19) NEGATIVE - SARS-CoV-2 (COVID19) ORGANISM 1: RESPIRATORY SYNCYTIAL VIRUS RSV is the most common cause of severe respiratory disease in infants, with acute bronchiolitis as the major cause of hospitalization. Treatment or prophlaxis with a humanized monoclonal antibody has shown a reduction in disease for high risk infants. ORGANISM 1: RESPIRATORY SYNCYTIAL VIRUS 5 Result Units: GPI IgG units . The reference interval reflects a 3SD or 99th percentile interval, which is thought to represent a potentially clinically significant result in accordance with the International Consensus Statement on the classification criteria for definitive antiphospholipid syndrome (APS). J Thromb Haem 2006;4:295-306. 6 Result Units: GPI IgA units . The reference interval reflects a 3SD or 99th percentile interval, which is thought to represent a potentially clinically significant result in accordance with the International Consensus Statement on the classification criteria for definitive antiphospholipid syndrome (APS). J Thromb Haem 2006;4:295-306. 7 Result Units: GPI IgM units . The reference interval reflects a 3SD or 99th percentile interval, which is thought to represent a potentially clinically significant result in accordance with the International Consensus Statement on the classification criteria for definitive antiphospholipid syndrome (APS). J Thromb Haem 2006;4:295-306. 8 Negative <1.0 Weak Positive 1.0 - 1.5 Moderate Positive 1.6 - 2.5 Strong Positive >2.5 9 Specimen Comment: Test(s) 52 7365-[id number] ENVIRONMENTAL COMPLIANCE INSPECTOR Ab (RDL) Specimen Comment: was developed and its performance characteristics Specimen Comment: determined by [facility]. It has not been cleared or approved Specimen Comment: by the Food and Drug Administration. 10 Negative <1:80 Borderline 1:80 Positive >1:80 ICAP nomenclature: AC-0 For more information about Hep-2 cell patterns use ANApatterns.org, the official website for the International Consensus on Antinuclear Antibody (JANEY) Patterns (ICAP). Performed at: - [facility] [address] [id number] Cnc Machinist: Pretty Swain MD, Phone: [phone] Performed at: - [facility] [id number] Cnc Machinist: Prabhakar Hudson MD, Phone: [phone] Performed at: [facility] [address] [place] [id number] Cnc Machinist: Bora Wu MD, Phone: [phone] Specimen Comment: Test(s) 52 [id number]-Tbur-A3 ENVIRONMENTAL COMPLIANCE INSPECTOR Ab (RDL) Specimen Comment: was developed and its performance characteristics Specimen Comment: determined by [facility]. It has not been cleared or approved Specimen Comment: by the Food and Drug Administration. 12 Negative: <12 Indeterminate: 12 - 20 Low-Med Positive: >20 - 80 High Positive: >80 13 Negative: <15 Indeterminate: 15 - 20 Low-Med Positive: >20 - 80 High Positive: >80 14 Negative: <13 Indeterminate: 13 - 20 Low-Med Positive: >20 - 80 High Positive: >80 15 Specimen Comment: Test(s) 52 [id number] ENVIRONMENTAL COMPLIANCE INSPECTOR Ab (RDL) Specimen Comment: was developed and its performance characteristics Specimen Comment: determined by [facility]. It has not been cleared or approved Specimen Comment: by the Food and Drug Administration. 16 Negative: <20 Weak Positive: 20 - 39 Moderate Positive: 40 - 80 Strong Positive: >80 17 Negative: <20 Weak Positive: 20 - 39 Moderate Positive: 40 - 80 Strong Positive: >80 18 . Results do not indicate the presence of a Lupus Anticoagulant: abnormal high screening results (PTT-LA, dRVVT, mixing studies), may be due to medication (heparin, warfarin, aspirin), Factor inhibitors, anticardiolipin antibodies, or poor specimen integrity. Performed at: [address] [id number] Cnc Machinist: Prabahkar Hudson MD, Phone: [phone] 19 NORMALIZED RATIO IS EQUAL TO OR GREATER THAN 1.20 LA IS PRESENT. SPECIMEN WILL BE SENT TO [facility], [address] [place]. [address] REFERE [facility] FOR CONFIRMATION. 20 RESULT IS 1.2 OR GREATER, FURTHER TESTING INDICATED. SEE RESULTS BELOW. INTERPRETATION This test is to screen those individuals that may have a circulating lupus anticoagulant. If the LA Screen test is normal, and/or the LA Confirm test is normal, the presence of a Lupus Anticoagulant (LA) is unlikely, but does not completely exclude LA-like activity. If both tests or the LA Confirm test are elevated, the specimen will be reflexed to a hexagonal phase phospholipid test through our reference laboratory for confirmation. A positive hexagonal phase phospholipid is indicative of LA. A negative hexagonal phase phospholipid test may indicate a coagulation factor deficiency or a specific inhibitor. 21 Age Male Female 1 - 30 days Not Estab. Not E stab. 31 days - 6 months >32 >20 7 months - 17 years >39 >39 >17 years >41 >41 NOTE: The adult (">17 years") reference interval range is used to flag abnormals on this report. If the patient is 17 years old or younger, use the table above to determine out of range values. Performed at: RN - [facility] [address] [id number] Cnc Machinist: Pretty Swain MD, Phone: [phone] 22 note:<nlbl:demographic_chang ed> 23 note:<nlbl:demographic_chang ed> 24 note:<nlbl:demographic_chang ed> 25 note:<nlbl:demographic_chang ed> 26 note:<nlbl:demographic_chang ed> 27 note:<nlbl:demographic_chang ed> 28 note:<nlbl:demographic_chang ed> 29 VITAMIN B12 NORMAL RANGE NORMAL 247 - 911 PG/ML INDETERMINATE 211 - 246 PG/ML DEFICIENT LESS THAN 211 PG/ML 30 note:<nlbl:demographic_chang ed> 31 note:<nlbl:demographic_chang ed> 32 note:<nlbl:demographic_chang ed> 33 note:<nlbl:demographic_chang ed> 34 Units are mL/min/1.73 m2 Chronic Kidney Disease Staging per NKF: Stage I & II GFR >=60 Normal to Mildly Decreased Stage III GFR 30-59 Moderately Decreased Stage IV GFR 15-29 Severely Decreased Stage V GFR <15 Very Little GFR Left ESRD GFR <15 on SHADE HANGER 35 Negative <5 Equivocal 5 - 9 Positive >9 36 . Autoantibody Disease Association Condition Frequency -------- --------- Antinuclear Antibody, SLE, mixed connective Direct (JANEY-D) tissue diseases -------- --------- dsDNA SLE 40 - 60% -------- --------- Chromatin Drug induced SLE 90% SLE 48 - 97% -------- --------- SSA (Ro) SLE 25 - 35% Sjogren's Syndrome 40 - 70% Lupus 100% -------- --------- SSB (La) SLE 10% Sjogren's Syndrome 30% ------- --------- Sm (anti-Camargo) SLE 15 - 30% ------- --------- ENVIRONMENTAL COMPLIANCE INSPECTOR Mixed Connective Tissue Disease 95% (U1 nRNP, SLE 30 - 50% anti-ribonucleoprotein) Polymyositis and/or Dermatomyositis 20% -------- --------- Scl-70 (antiDNA Scleroderma (diffuse) 20 - 35% topoisomerase) Crest 13% -------- --------- Edel-1 Polymyositis and/or Dermatomyositis 20 - 40% -------- --------- Centromere B Scleroderma - Crest variant 80% Performed at: RN - [facility] [address] [id number] Cnc Machinist: Pretty Swain MD, Phone: [phone] Procedures Date Code Description Status 06/29/2020 02972 Office/Outpatient Established Lo w MDM 20-29 Min Completed Medical Devices Description No Information Available Encounters Description No Information Available Assessments Date Code Description Provider 06/29/2020 R76.0 Raised antibody titer Trav Camargo MD 06/29/2020 M51.36 Other intervertebral disc degene ration, lumbar region Trav Camargo MD 06/29/2020 R55 Syncope and collapse Trav manuel MD Plan of Treatment Future Appointment(s):* 12/28/2020 9:00 am - Trav Camargo MD at [facility] * 01/01/2021 3:00 pm - Trav Camargo MD at [facility] Functional Status Functional Condition Comment Date Status Hearing Aid in both ears Active Mental Status Description No Information Available Referrals Refer to Dr Reason for Referral Status Appt Date [facility] Rheumatology 39 y/o F with hx of elevated JANEY, pls eval and treat. 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 Could be psychiatric related. Rule out cardiac etiology. Closed 10/12/[address] [facility] [address] [place], [place] [id number] [phone]
--- OUTSIDE RECORDS SUMMARY | 2020-12-18 15:05 | CCD | Continuity of Care Document ---
Author Author Leanna CAMARGO M.D. Organization Unknown Address [address] [place] [address] Phone [phone] Care Team Providers Care Ship'S Carpenter Name Role Phone Trav Camargo M.D. AUTM [phone] [facility] AUTM [phone] [facility] AUTM [phone] Debra Canales PLANT PROPAGATOR AUTM [phone] [facility] Rheumatology AUTM [phone] Tim Guthrie AUTM Unavailable [facility] Rheumatology AUTM [phone] [facility] Physical Therapy AUTM [phone] Kyaw Contreras MD AUTM [facility] Audiology & Physical Therapy AUTM [phone] [facility] AUTM [phone] Problems Active Problems Provider Date Cluster B personality disorder Mercedes Martinez NP Onset: Mild mental handicap Mercedes Martinez NP Onset: 07/31/2016 Stimulant dependence Mercedes Martinez NP Onset: 07/31/2016 Vitamin D deficiency Trav Camargo MD Onset: 04/17/2017 Cannabis abuse, uncomplicated Kendell Lucas LCSW Onset: Alcohol abuse, uncomplicated Kendell Lance, OPHTHALMIC TECH Onset: Social History Type Date Description Comments [...] Seat Belt/Car Seat Always uses seat belt Allergies, Adverse Reactions, Alerts Active Allergies Reaction Severity Comments Date Seafood 07/18/2016 Amitriptyline 07/18/2016 Nortriptyline 07/18/2016 Atenolol 07/18/2016 Risperdal 07/18/2016 Geodon 07/18/2016 FD&C Red 40 Retana 07/18/2016 [place] Dye 07/18/2016 Gabapentin Urticaria Moderate pt states 06/05/2017 Medications Active Medications SIG Qnty Indications Ordering Provide r Date Vitamin D 1000Unit Tablets 1 tablet by mouth daily 90tabs Trav Camargo MD 05/26/2019 Epinephrine 0.3mg/0. 3ML Solution Auto-Inject 1 unit injected as needed 2units Trav Camargo MD 01/12/2018 Pregabalin 75mg Capsules Take 1 [...] CPT Code Status Date Vaccine Lot # [id number] Given 12/03/2016 Influenza (>35 months) P.F. Vaccine [...] Date Facility Test Result H/L Range Note CBC With Differential 10/02/2020 [facility] White Blood Count 7.8 10 Normal 4.0-10.0 [...] 36.0-66.0 Lymph % 27.9 % Normal 24.0-44.0 [place] % 6.4 % Normal 2.0-8.0 Eos % 5.6 % High 0.0-3.0 Baso % 0.4 % Normal 0.0-1.0 Immature Granulocyte % 0.3 % Normal 0-3.0 Nucleated Red Blood Cell % 0.0 % Normal 0-0 Neutrophils # 4.6 10 Normal 1.5-8.5 Lymph # 2.2 10 Normal 1.5-5.0 [place] # 0.5 10 Normal 0.0-0.8 Eos # 0.4 10 Normal 0.0-0.5 Baso # 0.0 10 Normal 0.0-0.2 Laboratory test finding 10/02/2020 [facility] Erythrocyte Sedimentation Rate 45 mm/hr High 0-20 Complement Total (CH50) > 60 U/mL Normal >41 1 Lupus Type Anticoagulant Scree 10/02/2020 [facility] PTT Lupus Type Anticoag Screen 1.4 High 0-1.2 2 Laboratory test finding 10/02/2020 [facility] Lupus Confirm Stago 1.27 High 0.00-1.20 3 Lupus Screen Confirmation 10/02/2020 [facility] Hexagonal Phase Phospholipid 0 sec Normal 0-11 Comment For Hexagonal Confirm1 (SEE NOTE) Normal . 4 Laboratory test finding 10/02/2020 [facility] Phosphorus Level 3.6 mg/dL Normal 2.5-4.9 5 CPK Creatine Phosphokinase 43 U/L Normal 26-192 6 Magnesium Level 2.1 mg/dL Normal 1.8-2.4 7 Iron (Fe) 50 g/dL Normal 50-170 8 Complement C3 148 mg/dL Normal 90-180 9 Complement C4 23 mg/dL Normal 10-40 10 Thyroid Stimulating Hormone 0.828 uIU/ML Normal 0.358-3.740 11 Vitamin B12 Level 710 pg/mL Normal 247-911 12 Total 25(Oh) Vitamin D 24.7 NG/ML Low 30.0-100.0 13 C Reactive Protein Quantitativ 1.67 mg/dL High 0.00-0.30 14 Antinuclear Antibodies 06/19/2020 [facility] Antinuclear Antibodies Direct Positive Abnormal Negative Anti Double Strand-Dna AB 32 IU/mL High 0-9 15 MATRIX REPAIRER Antibodies <0.2 AI Normal 0.0-0.9 Camargo Antibodies <0.2 AI Normal 0.0-0.9 Sjogren's Anti SS-A <0.2 AI Normal 0.0-0.9 Sjogren's Anti SS-B <0.2 AI Normal 0.0-0.9 Renée Comment (SEE NOTE) Normal . 16 Comprehensive Metabolic Profil 06/19/2020 [facility] Glucose, Fasting 83 mg/dL Normal 70-100 Blood Urea Nitrogen 22 mg/dL High 7-18 Creatinine For GFR 0.83 mg/dL Normal 0.55-1.30 Glomerular Filtration Rate > 60.0 Normal >60 1 7 Sodium Level 139 mEq/L Normal 136-145 Potassium [...] Normal 3.2-5.2 Albumin/Globulin Ratio 1.0 Low 1.2-2.2 Laboratory test finding 06/19/2020 [facility] Erythrocyte Sedimentation Rate 41 mm/hr High 0-20 C Reactive Protein Quantitativ 1.13 mg/dL High 0.00-0.30 18 Rheumatoid Factor Quant < 10.0 IU/mL Normal <15.0 19 CBC W/Automated Diff 06/19/2020 [facility] White Blood Count 7.1 10 Normal 4.0-10.0 [...] 36.0-66.0 Lymph % 28.2 % Normal 24.0-44.0 [place] % 5.5 % Normal 2.0-8.0 Eos % 8.1 % High 0.0-3.0 Baso % 1.0 % Normal 0.0-1.0 Immature Granulocyte % 0.3 % Normal 0-3.0 Nucleated Red Blood Cell % 0.0 % Normal 0-0 Neutrophils # 4.0 10 Normal 1.5-8.5 Lymph # 2.0 10 Normal 1.5-5.0 [place] # 0.4 10 Normal 0.0-0.8 Eos # 0.6 10 High 0.0-0.5 Baso # 0.1 10 Normal 0.0-0.2 Istat Chem8+ Panel 04/23/2020 [facility] iSTAT HCT 40.0 % Normal 38.0-51.0 iSTAT Glucose 92 mg/dL Normal 70-105 iSTAT Sodium 142 mEq/L Normal 136-145 iSTAT Potassium 3.7 mEq/L Normal 3.5-5.1 iSTAT CA++ 4.8 mg/dL Normal 4.5-5.3 iSTAT Chloride 104 mEq/L Normal 98-109 iSTAT Co2 30.0 MM/L High 23.0-27.0 iSTAT BUN 18 mg/dL Normal 8-26 iSTAT Creatinine 1.1 mg/dL Normal 0.6-1.3 CBC With Differential 04/23/2020 [facility] White Blood Count 9.5 10 Normal 4.0-10.0 Red Blood Count 4.44 10 Normal 4.00-5.40 Hemoglobin 13.2 g/dL Normal 12.0-15.5 Hematocrit 40.4 % Normal 36.0-47.0 Mean Corpuscular Volume 91.0 fl Normal 80.0-96.0 Mean Corpuscular Hemoglobin 29.7 pg Normal 27.0-33.0 Mean Corpuscular HGB Conc 32.7 g/dL Normal 32.0-36.5 Red Cell Distribution Width 12.8 % Normal 11.5-14.5 Platelet Count, Automated 294 10 Normal 150-450 Neutrophils % 56.5 % Normal 36.0-66.0 Lymph % 29.0 % Normal 24.0-44.0 [place] % 5.4 % Normal 2.0-8.0 Eos % 8.1 % High 0.0-3.0 Baso % 0.8 % Normal 0.0-1.0 Immature Granulocyte % 0.2 % Normal 0-3.0 Nucleated Red Blood Cell % 0.0 % Normal 0-0 Neutrophils # 5.3 10 Normal 1.5-8.5 Lymph # 2.8 10 Normal 1.5-5.0 [place] # 0.5 10 Normal 0.0-0.8 Eos # 0.8 10 High 0.0-0.5 Baso # 0.1 10 Normal 0.0-0.2 Liver Profile 04/23/2020 [facility] Ast/Sgot 15 U/L Normal 7-37 Alt/SGPT 24 U/L Normal 12-78 Alkaline Phosphatase 130 U/L High 45-117 Bilirubin,Total 0.2 mg/dL Normal 0.2-1.0 Bilirubin,Direct < 0.1 mg/dL Normal 0.0-0.2 Total Protein 7.4 GM/DL Normal 6.4-8.2 Albumin 3.2 GM/DL Normal 3.2-5.2 Albumin/Globulin Ratio 0.8 Low 1.2-2.2 Laboratory test finding 04/23/2020 [facility] Lipase 194 U/L Normal 73-393 20 Ua W/ Reflex To Culture 04/23/2020 [facility] Appearance, Urine RFX HAZY Normal Clear Color, Urine RFX YELLOW Normal Yellow PH,Urine RFX 6.0 units Normal 5.0-9.0 Specific [place] Ur Auto RFX 1.020 Normal 1.002-1.035 Protein, Urine Auto RFX NEGATIVE mg/dL Normal Negative Glucose, Urine (Ua) Auto RFX NEGATIVE mg/dL Normal Negative Ketone, Urine Auto RFX NEGATIVE mg/dL Normal Negative Urobilinogen, Urine Auto RFX 0.2 mg/dL Normal 0.0-2.0 Bilirubin, Urine Auto RFX NEGATIVE Normal Negative Nitrite, Urine Auto RFX NEGATIVE Normal Negative Leukocyte Esterase Ur Auto RFX 2+ High Negative Blood, Urine Blood RFX 3+ High Negative WBC, Urine Auto RFX 32 /HPF High 0-3 RBC, Urine Auto RFX TNTC /HPF High 0-3 Bacteria, Urine Auto RFX 1+ High Negative Squam Epithelial Cell Ur Aurfx 1 /HPF Normal 0-6 Transitional Epithelial AU RFX <1 /HPF Normal None Hyaline Cast, Urine Auto RFX 0 /LPF Normal 0-1 Reflex Urine Culture 04/23/2020 [facility] Reflex Urine Culture FULL REPORT IN L <SEE NOTE> Normal 21 1 Age Male Female 1 - 30 days [...] range values. Performed at: RN - [facility] [address] [id number] Cutter Machine: Pretty Swain MD, Phone: [phone] 2 RESULT IS 1.2 OR GREATER, FURTHER TESTING [...] coagulation factor deficiency or a specific inhibitor. 3 NORMALIZED RATIO IS EQUAL TO OR GREATER THAN 1.20 LA IS PRESENT. SPECIMEN WILL BE SENT TO [facility], [address] [place] [address], [facility] [address] [facility] FOR [facility]. 4 . Results do not indicate the presence of a Lupus Anticoagulant: abnormal high screening results (PTT-LA, dRVVT, mixing studies), may be due to medication (heparin, warfarin, aspirin), Factor inhibitors, anticardiolipin antibodies, or poor specimen integrity. Performed at: [facility] [id number] Cutter Machine: Prabhakar Hudson MD, Phone: [phone] 5 note:<nlbl:demographic_chang ed> 6 note:<nlbl:demographic_chang ed> 7 note:<nlbl:demographic_chang ed> 8 note:<nlbl:demographic_chang ed> 9 note:<nlbl:demographic_chang ed> 10 note:<nlbl:demographic_chang ed> 11 note:<nlbl:demographic_chang ed> 12 VITAMIN B12 NORMAL RANGE NORMAL 247 - 911 PG/ML INDETERMINATE 211 - 246 PG/ML DEFICIENT LESS THAN 211 PG/ML 13 note:<nlbl:demographic_chang ed> 14 note:<nlbl:demographic_chang ed> 15 Negative <5 Equivocal 5 - 9 Positive >9 16 . Autoantibody Disease Association Condition Frequency -------- --------- Antinuclear Antibody, SLE, mixed connective Direct (RENÉE-D) tissue diseases -------- --------- dsDNA SLE 40 - 60% -------- --------- Chromatin Drug induced SLE 90% SLE 48 - 97% -------- --------- SSA (Ro) SLE 25 - 35% Sjogren's Syndrome 40 - 70% Lupus 100% -------- --------- SSB (La) SLE 10% Sjogren's Syndrome 30% ------- --------- Sm (anti-Camargo) SLE 15 - 30% ------- --------- MATRIX REPAIRER Mixed Connective Tissue Disease 95% (U1 nRNP, SLE 30 - 50% anti-ribonucleoprotein) Polymyositis and/or Dermatomyositis 20% -------- --------- Scl-70 (antiDNA Scleroderma (diffuse) 20 - 35% topoisomerase) Crest 13% -------- --------- Edel-1 Polymyositis and/or Dermatomyositis 20 - 40% -------- --------- Centromere B Scleroderma - Crest variant 80% Performed at: RN - [facility] [address] [id number] Cutter Machine: Pretty Swain MD, Phone: [phone] 17 Units are mL/min/1.73 m2 Chronic Kidney Disease Staging per NKF: Stage I & II GFR >=60 Normal to Mildly Decreased Stage III GFR 30-59 Moderately Decreased Stage IV GFR 15-29 Severely Decreased Stage V GFR <15 Very Little GFR Left ESRD GFR <15 on PORTABLE SAWYER 18 note:<nlbl:demographic_chang ed> 19 note:<nlbl:demographic_chang ed> 20 note:<nlbl:demographic_chang ed> 21 FULL REPORT IN LAB NOTES (eC W and [facility]). NO GROWTH CLINICAL SIGNIFICANCE 2 OR MORE ORGANISMS Procedures Date Code Description Status 06/29/2020 49054 Office/Outpatient Established Lo w MDM 20-29 Min Completed 06/15/2020 10611 Office/Outpatient Established Lo w MDM 20-29 Min Completed 06/15/2020 34338 Brief Emotional/Beha v Assessment W/ Scoring Doc Per Standard Inst Completed Medical Devices Description No Information Available Encounters Description No Information Available Assessments Date Code Description Provider 06/29/2020 R76.0 Raised antibody titer Trav Camargo MD 06/29/2020 M51.36 Other intervertebral disc degene ration, lumbar region Trav Camargo MD 06/29/2020 R55 Syncope and collapse Trav manuel MD 06/15/2020 M70.71 Other bursitis of hip, right hip Trav Cmaargo MD 06/15/2020 M54.5 Low back pain Trav Camargo MD Plan of Treatment Future Appointment(s):* 01/01/2021 3:00 pm - Trav Camargo MD at [facility] Functional Status Functional Condition Comment Date Status Hearing Aid in both ears Active Mental Status Description No Information Available Referrals Refer to Reason for Referral Status Appt Date [facility] Rheumatology 39 y/o F with hx of elevated RENÉE, pls eval and treat. 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 Could be psychiatric related. Rule out cardiac etiology. Patient Notified 10/12/[address] [place] [address] [phone]
--- OUTSIDE RECORDS SUMMARY | 2020-12-18 15:05 | CCD ---
Author Author [facility] Organization [facility] Address Unknown Phone Unavailable Care Team Providers Care Force Adjustment Supervisor Name Role Phone Noemi Llanos Unavailable PROBLEMS Type Condition ICD9-CM Code HDR06-AM Code Onset Dates Condition S tatus W/U Status Risk SNOMED Code Notes Problem Contusion of upper arm 923.03 Active confirmed 74931766 Problem Obesity, unspecified 278.00 Active confirmed 325781672 Problem Contusion of abdominal wall 922.2 Active confirmed 94037418 Problem Spontaneous ecchymoses 782.7 Active confirmed 478587007 Problem Low vision, one eye, not otherwise specified 369.70 Active confirmed 37541507 Problem Elevated blood pressure reading without diagnosi s of hypertension 796.2 Active confirmed 114166253 Problem Contusion of hand(s) 923.20 Active confirmed 2781290 Problem Routine gynecological examination V72.31 Active confirmed 183126247522652 Problem Other screening breast examination V76.19 Activ e confirmed 72490519 Problem Asthma, unspecified, unspecified status 493.90 Active confirmed 29110866 Problem Decreased hearing 389.9 Active confirmed 10 5436085 Problem Abscess 682.9 Active confirmed 868453084 Problem Lump or mass in breast 611.72 Active confirmed 45736589 Problem Sebaceous cyst 706.2 Active confirmed 82747 3000 Problem Hx of ovarian cyst V13.29 Active confirmed 7 6890329 Problem Hx of infertility V13.29 Active confirmed Problem Fibrocystic breast disease 610.1 Active confirmed 41934046 Problem History of cervical dysplasia V13.22 Active confirm ed 821150724 Problem Pelvic pain in female 625.9 Active confirmed 364893105 Problem GERD (gastroesophageal reflux disease) 530.81 A ctive confirmed 662469879 Problem Myalgia M79.1 Active confirmed 31856009 Problem Obesity complicating in third trimester O99.213 Active confirmed Problem Candidal vaginitis 112.1 Active confirmed 7 2023396 Problem Body mass index (BMI) 40.0-44.9, adult Z68.41 A ctive confirmed 269675454 Problem Diarrhea 787.91 Active confirmed 52540233 Problem Intestinal infections due to clostridium difficile 008.45 Active confirmed 685770725 Problem Elevated C-reactive protein (CRP) R79.82 Active confirmed 709497448166997 Problem Fibromyalgia M79.7 Active confirmed 6776800 05 Problem Supervision of other normal Z34.80 Ac tive confirm 540268389 Problem Obesity complicating in second trimester O99.212 Active confirmed 844181331868 ALLERGIES Allergen (clinical drug ingredient) Drug/Non Drug Allergy do cumented on EMR Reaction Allergy Type Onset Date Status Flexeril Hives Drug Allergy Active Seafood, fish Angioedema Non Drug Allergy Activ e tramadol Tramadol HCl(ND Code:[address]-03) Hives Drug Aller gy Active Geodon Paranoid Non Drug Allergy Active atenolol 100 Hives Drug Allergy Active ziprasidone Ziprasidone HCl(NDC Code:[address]-91) Hives Drug A llergy Active nortriptyline Nortriptyline HCl(NDC Code:[address]-13) Hives Dr ug Allergy Active cyclobenzaprine Cyclobenzaprine HCl(NDC Code:[address]-88) Hives Drug Allergy Active Sea Food Anaphylaxis Non Drug Allergy Active tramadol Ultram(NDC Code:[address]-06) Hives Drug Allergy Active risperidone Risperidone(NDC Code:[address]-45) Hives Drug Aller gy Active amitriptyline Amitriptyline HCl(NDC Code:[address]-96) Hives Dr ug Allergy Active gabapentin Gabapentin(NDC Code:[address]-30) Hives Drug Allergy Active Imetrex Hives Non Drug Allergy Active Rispererdol dizzy Non Drug Allergy Active ENCOUNTERS from 1980 to 2020-10-24 Encounter Location Date Provider Diagnosis [facility] Rheumatology [address] [facility] [phone] [place] [address] Oct, [facility] IMMUNIZATIONS No Information SOCIAL HISTORY Tobacco Use: Social History Observation Description Date Details (start date - stop date) Former Smoker Sex Assigned At : Social History Observation Description Sex Assigned At Unknown Alcohol Screening: Question Answer Notes Did you have a drink containing alcohol in the past year? Ye s Points 1 Interpretation Negative How often did you have six or more drinks on one occas ion in the past year? Never (0 points) How many drinks did you have on a typica l day when you were drinking in the past year? 1 or 2 (0 points) How often did you have a drink containing alcohol in t he past year? Monthly or less (1 point) Tobacco Use: Question Answer Notes Are you a: former smoker REASON FOR REFERRAL No Information VITAL SIGNS No information MEDICATIONS Medication SIG (Take, Route, Frequency, Duration) Notes Start Da te End Date Status Vitamin D 25 MCG (1000 UT) 1 tablet Orally Once a day for 30 day(s) Active MiraLax 17 GM/SCOOP 1 packet mixed with 8 ounces of fluid Orally Once a day as needed Active EpiPen 2-Sal 0.3 MG/0.3ML as directed Injection Active Pregabalin 75 MG 1 capsule Oral twice daily Active Valtrex 500 MG 1 tablet Orally twice a day for 7 day(s) Apr, Not-Taking Aimovig 140 MG/ML INJECT 140 MG UNDER THE SKIN ONCE A MONTH Subcutaneous monthly Active PROCEDURES No Information RESULTS No Results REASON FOR VISIT LAB DRAW ONLY/[facility] MEDICAL (GENERAL) HISTORY Type Description Date Medical History Schizoaffective Disorder Medical History Vitamin D Deficiency Medical History Hearing Loss unknown etiolog y est w/ audiology and ENT w/ Dr. Ribera, wears hearing aid Medical History Obstructive Sleep Apnea use CPAP Medical History Asthma Medical History Hx ruptured disc Medical History Hx pleurisy Medical History Hx shunt placed in head at due to hydrocephalus Medical History Hx tubes in ears b/l at Medical History Hx thyroid nodules being followed by end ocrinology Medical History Migraines follows w/ Ericka Tate SOAP INSPECTOR Medical History C. diff colitis 03/15 Medical History Freq abscess and h/o MRSA Medical History Hx ovarian cysts Medical History Hx moderate cervical dysplasia (LISA I-II ) w/LEEP Medical History Infertility issues Medical History Fibrocystic breast disease Surgical History Plantar facitis 2013 Surgical History Shunt in the brain/ear tubes 1980 Surgical History Laparscopic exploratory 2013 Surgical History 04/04/2020 Hospitalization History Mental health admissions last in 201 5 Hospitalization History Childbirth x2 Goals Section No Information Health Concerns No Information MEDICAL EQUIPMENT No Information MENTAL STATUS No Information FUNCTIONAL STATUS No Information ASSESSMENTS No Information PLAN OF TREATMENT Next Appt Details Provider Name:Noemi Llanos, 2020-11-03 05:00:00 PM, [address] [place] [address], , [place], [place], [facility], Insurance Providers Payer Name Payer Address Payer Phone Insured Name Patient Relati onship to Insured Coverage Start Date Coverage End Date [facility] [address] [facility] [id number] CHEN PETERS self
--- OUTSIDE RECORDS SUMMARY | 2020-12-18 15:05 | CCD | Continuity of Care Document ---
Author Author Leanna CAMARGO M.D. Organization Unknown Address [address] [place] [address] Phone [phone] Care Team Providers Care Gymnastic Teacher Name Role Phone Trav Camargo M.D. AUTM [phone] [facility] Orthopedics AUTM [phone] [facility] AUTM [phone] Debra Canales TOOL TURRET LATHE SET UP OPERATOR AUTM [phone] [facility] Rheumatology AUTM [phone] Tim Guthrie AUTM Unavailable [facility] Rheumatology AUTM [phone] [facility] Physical Therapy AUTM [phone] Kyaw Contreras MD AUTM [facility] AUTM [phone] [facility] AUTM [phone] Problems Active Problems Provider Date Cluster B personality disorder Mercedes Martinez NP Onset: Mild mental handicap Mercedes Martinez NP Onset: 07/31/2016 Stimulant dependence Mercedes Martinez NP Onset: 07/31/2016 Vitamin D deficiency Trav Camargo MD Onset: 04/17/2017 Cannabis abuse, uncomplicated Kendell Lucas LCSW Onset: Alcohol abuse, uncomplicated Kendell Lance, WIRELESS MANAGER Onset: Social History Type Date Description Comments [...] Geodon 07/18/2016 FD&C Red 40 Retana 07/18/2016 [place] Dye 07/18/2016 Gabapentin Urticaria Moderate pt states [...] CPT Code Status Date Vaccine Lot # [id number] Given 12/03/2016 Influenza (>35 months) P.F. Vaccine [...] Date Facility Test Result H/L Range Note Laboratory test finding 10/02/2020 [facility] Phosphorus Level 3.6 mg/dL Normal 2.5-4.9 1 CPK Creatine Phosphokinase 43 U/L Normal 26-192 2 Magnesium Level 2.1 mg/dL Normal 1.8-2.4 3 Iron (Fe) 50 g/dL Normal 50-170 4 Complement C3 148 mg/dL Normal 90-180 5 Complement C4 23 mg/dL Normal 10-40 6 Thyroid Stimulating Hormone 0.828 uIU/ML Normal 0.358-3.740 7 Vitamin B12 Level 710 pg/mL Normal 247-911 8 Total 25(Oh) Vitamin D 24.7 NG/ML Low 30.0-100.0 9 C Reactive Protein Quantitativ 1.67 mg/dL High 0.00-0.30 10 CBC With Differential 10/02/2020 [facility] White Blood Count 7.8 10 Normal 4.0-10.0 [...] 36.0-66.0 Lymph % 27.9 % Normal 24.0-44.0 [place] % 6.4 % Normal 2.0-8.0 Eos % 5.6 % High 0.0-3.0 Baso % 0.4 % Normal 0.0-1.0 Immature Granulocyte % 0.3 % Normal 0-3.0 Nucleated Red Blood Cell % 0.0 % Normal 0-0 Neutrophils # 4.6 10 Normal 1.5-8.5 Lymph # 2.2 10 Normal 1.5-5.0 [place] # 0.5 10 Normal 0.0-0.8 Eos # 0.4 10 Normal 0.0-0.5 Baso # 0.0 10 Normal 0.0-0.2 Laboratory test finding 10/02/2020 [facility] Erythrocyte Sedimentation Rate 45 mm/hr High 0-20 CBC W/Automated Diff 06/19/2020 [facility] White Blood Count 7.1 10 Normal 4.0-10.0 [...] 36.0-66.0 Lymph % 28.2 % Normal 24.0-44.0 [place] % 5.5 % Normal 2.0-8.0 Eos % 8.1 % High 0.0-3.0 Baso % 1.0 % Normal 0.0-1.0 Immature Granulocyte % 0.3 % Normal 0-3.0 Nucleated Red Blood Cell % 0.0 % Normal 0-0 Neutrophils # 4.0 10 Normal 1.5-8.5 Lymph # 2.0 10 Normal 1.5-5.0 [place] # 0.4 10 Normal 0.0-0.8 Eos # 0.6 10 High 0.0-0.5 Baso # 0.1 10 Normal 0.0-0.2 Laboratory test finding 06/19/2020 [facility] Erythrocyte Sedimentation Rate 41 mm/hr High 0-20 C Reactive Protein Quantitativ 1.13 mg/dL High 0.00-0.30 11 Rheumatoid Factor Quant < 10.0 IU/mL Normal <15.0 12 Comprehensive Metabolic Profil 06/19/2020 [facility] Glucose, Fasting 83 mg/dL Normal 70-100 Blood Urea Nitrogen 22 mg/dL High 7-18 Creatinine For GFR 0.83 mg/dL Normal 0.55-1.30 Glomerular Filtration Rate > 60.0 Normal >60 1 3 Sodium Level 139 mEq/L Normal 136-145 Potassium [...] Ratio 1.0 Low 1.2-2.2 Antinuclear Antibodies 06/19/2020 [facility] Antinuclear Antibodies Direct Positive Abnormal Negative Anti Double Strand-Dna AB 32 IU/mL High 0-9 14 PROCTOLOGIST Antibodies <0.2 AI Normal 0.0-0.9 Camargo Antibodies <0.2 AI Normal 0.0-0.9 Sjogren's Anti SS-A <0.2 AI Normal 0.0-0.9 Sjogren's Anti SS-B <0.2 AI Normal 0.0-0.9 Renée Comment (SEE NOTE) Normal . 15 Istat Chem8+ Panel 04/23/2020 [facility] iSTAT HCT 40.0 % Normal 38.0-51.0 iSTAT Glucose 92 mg/dL Normal 70-105 iSTAT Sodium 142 mEq/L Normal 136-145 iSTAT Potassium 3.7 mEq/L Normal 3.5-5.1 iSTAT CA++ 4.8 mg/dL Normal 4.5-5.3 iSTAT Chloride 104 mEq/L Normal 98-109 iSTAT Co2 30.0 MM/L High 23.0-27.0 iSTAT BUN 18 mg/dL Normal 8-26 iSTAT Creatinine 1.1 mg/dL Normal 0.6-1.3 CBC With Differential 04/23/2020 [facility] White Blood Count 9.5 10 Normal 4.0-10.0 [...] 36.0-66.0 Lymph % 29.0 % Normal 24.0-44.0 [place] % 5.4 % Normal 2.0-8.0 Eos % 8.1 % High 0.0-3.0 Baso % 0.8 % Normal 0.0-1.0 Immature Granulocyte % 0.2 % Normal 0-3.0 Nucleated Red Blood Cell % 0.0 % Normal 0-0 Neutrophils # 5.3 10 Normal 1.5-8.5 Lymph # 2.8 10 Normal 1.5-5.0 [place] # 0.5 10 Normal 0.0-0.8 Eos # 0.8 10 High 0.0-0.5 Baso # 0.1 10 Normal 0.0-0.2 Liver Profile 04/23/2020 [facility] Ast/Sgot 15 U/L Normal 7-37 Alt/SGPT 24 U/L Normal 12-78 Alkaline Phosphatase 130 U/L High 45-117 Bilirubin,Total 0.2 mg/dL Normal 0.2-1.0 Bilirubin,Direct < 0.1 mg/dL Normal 0.0-0.2 Total Protein 7.4 GM/DL Normal 6.4-8.2 Albumin 3.2 GM/DL Normal 3.2-5.2 Albumin/Globulin Ratio 0.8 Low 1.2-2.2 Laboratory test finding 04/23/2020 [facility] Lipase 194 U/L Normal 73-393 16 Ua W/ Reflex To Culture 04/23/2020 [facility] Appearance, Urine RFX HAZY Normal Clear Color, Urine RFX YELLOW Normal Yellow PH,Urine RFX 6.0 units Normal 5.0-9.0 Specific [place] Ur Auto RFX 1.020 Normal 1.002-1.035 Protein, [...] /LPF Normal 0-1 Reflex Urine Culture 04/23/2020 [facility] Reflex Urine Culture FULL REPORT IN L <SEE NOTE> Normal 17 1 note:<nlbl:demographic_chang ed> 2 note:<nlbl:demographic_chang ed> 3 note:<nlbl:demographic_chang ed> 4 note:<nlbl:demographic_chang ed> 5 note:<nlbl:demographic_chang ed> 6 note:<nlbl:demographic_chang ed> 7 note:<nlbl:demographic_chang ed> 8 VITAMIN B12 NORMAL RANGE NORMAL 247 - 911 PG/ML INDETERMINATE 211 - 246 PG/ML DEFICIENT LESS THAN 211 PG/ML 9 note:<nlbl:demographic_chang ed> 10 note:<nlbl:demographic_chang ed> 11 note:<nlbl:demographic_chang ed> 12 note:<nlbl:demographic_chang ed> 13 Units are mL/min/1.73 m2 Chronic Kidney Disease Staging per NKF: Stage I & II GFR >=60 Normal to Mildly Decreased Stage III GFR 30-59 Moderately Decreased Stage IV GFR 15-29 Severely Decreased Stage V GFR <15 Very Little GFR Left ESRD GFR <15 on PHYSICIAN EXECUTIVE 14 Negative <5 Equivocal 5 - 9 Positive >9 15 . Autoantibody Disease Association Condition Frequency -------- [...] (anti-Camargo) SLE 15 - 30% ------- --------- PROCTOLOGIST Mixed Connective Tissue Disease 95% (U1 nRNP, SLE 30 - 50% anti-ribonucleoprotein) Polymyositis and/or Dermatomyositis 20% -------- --------- Scl-70 (antiDNA Scleroderma (diffuse) 20 - 35% topoisomerase) Crest 13% -------- --------- Edel-1 Polymyositis and/or Dermatomyositis 20 - 40% -------- --------- Centromere B Scleroderma - Crest variant 80% Performed at: RN - Lab[address] [id number] Plant Pathology Teacher: Pretty Swain MD, Phone: [phone] 16 note:<nlbl:demographic_chang ed> 17 FULL REPORT IN LAB NOTES (eC W and Medent). NO GROWTH CLINICAL SIGNIFICANCE 2 OR MORE ORGANISMS Procedures Date Code Description Status 06/29/2020 50567 Office/Outpatient Established Lo w MDM 20-29 Min Completed 06/15/2020 41623 Office/Outpatient Established Lo w MDM 20-29 Min Completed 06/15/2020 25786 Brief Emotional/Beha v Assessment W/ Scoring Doc [...] Other bursitis of hip, right hip Trav Camargo MD 06/15/2020 M54.5 Low back pain Trav Camargo MD Plan of Treatment Future Appointment(s):* 01/01/2021 3:00 pm - Trav Camargo MD at [facility] Functional Status Functional Condition Comment Date Status Hearing Aid in both ears Active Mental Status Description No Information Available Referrals Refer to Reason for Referral Status Appt Date [facility] Rheumatology 39 y/o F with hx of elevated RENÉE, pls eval and treat. Sent [address] 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 Could be psychiatric related. Rule out cardiac etiology. Patient Notified 10/12/[address] [place] [address] [phone]
--- OUTSIDE RECORDS SUMMARY | 2020-12-18 15:05 | CCD | Continuity of Care Document ---
Author Author Leanna CAMARGO M.D. Organization Unknown Address [address] [place] [address] Phone [phone] Care Team Providers Care Coke Still Cleaner Name Role Phone Trav Camargo M.D. AUTM [phone] [facility] Orthopedics AUTM [phone] [facility] AUTM [phone] Debra Canales ORDER FULFILLMENT SPECIALIST AUTM [phone] [facility] Rheumatology AUTM [phone] Tim Guthrie AUTM Unavailable [facility] Rheumatology AUTM [phone] [facility] Physical Therapy AUTM [phone] Kyaw Contreras MD AUTM [facility] Audiology & Physical Therapy AUTM [phone] [facility] AUTM [phone] Problems Active Problems Provider Date Cluster B personality disorder Mercedes Martinez NP Onset: Mild mental handicap Mercedes Martinez NP Onset: 07/31/2016 Stimulant dependence Mercedes Martinez NP Onset: 07/31/2016 Vitamin D deficiency Trav Camargo MD Onset: 04/17/2017 Cannabis abuse, uncomplicated Kendell Lucas LCSW Onset: Alcohol abuse, uncomplicated Kendell Lance, SALES SUPPORT ENGINEER Onset: Social History Type Date Description Comments [...] Geodon 07/18/2016 FD&C Red 40 Retana 07/18/2016 [place] Dye 07/18/2016 Gabapentin Urticaria Moderate pt states [...] CPT Code Status Date Vaccine Lot # [id number] Given 12/03/2016 Influenza (>35 months) P.F. Vaccine [...] H/L Range Note Laboratory test finding 10/02/2020 [facility] Phosphorus Level 3.6 mg/dL Normal 2.5-4.9 1 [...] High 0.00-0.30 10 CBC With Differential 10/02/2020 [facility] White Blood Count 7.8 10 Normal 4.0-10.0 [...] 36.0-66.0 Lymph % 27.9 % Normal 24.0-44.0 [place] % 6.4 % Normal 2.0-8.0 Eos % 5.6 % High 0.0-3.0 Baso % 0.4 % Normal 0.0-1.0 Immature Granulocyte % 0.3 % Normal 0-3.0 Nucleated Red Blood Cell % 0.0 % Normal 0-0 Neutrophils # 4.6 10 Normal 1.5-8.5 Lymph # 2.2 10 Normal 1.5-5.0 [place] # 0.5 10 Normal 0.0-0.8 Eos # 0.4 10 Normal 0.0-0.5 Baso # 0.0 10 Normal 0.0-0.2 Laboratory test finding 10/02/2020 [facility] Erythrocyte Sedimentation Rate 45 mm/hr High 0-20 CBC W/Automated Diff 06/19/2020 [facility] White Blood Count 7.1 10 Normal 4.0-10.0 [...] 36.0-66.0 Lymph % 28.2 % Normal 24.0-44.0 [place] % 5.5 % Normal 2.0-8.0 Eos % 8.1 % High 0.0-3.0 Baso % 1.0 % Normal 0.0-1.0 Immature Granulocyte % 0.3 % Normal 0-3.0 Nucleated Red Blood Cell % 0.0 % Normal 0-0 Neutrophils # 4.0 10 Normal 1.5-8.5 Lymph # 2.0 10 Normal 1.5-5.0 [place] # 0.4 10 Normal 0.0-0.8 Eos # 0.6 10 High 0.0-0.5 Baso # 0.1 10 Normal 0.0-0.2 Laboratory test finding 06/19/2020 [facility] Erythrocyte Sedimentation Rate 41 mm/hr High 0-20 C Reactive Protein Quantitativ 1.13 mg/dL High 0.00-0.30 11 Rheumatoid Factor Quant < 10.0 IU/mL Normal <15.0 12 Comprehensive Metabolic Profil 06/19/2020 [facility] Glucose, Fasting 83 mg/dL Normal 70-100 Blood [...] Ratio 1.0 Low 1.2-2.2 Antinuclear Antibodies 06/19/2020 [facility] Antinuclear Antibodies Direct Positive Abnormal Negative Anti Double Strand-Dna AB 32 IU/mL High 0-9 14 PROCESS ENGINEER Antibodies <0.2 AI Normal 0.0-0.9 Camargo Antibodies <0.2 AI Normal 0.0-0.9 Sjogren's Anti SS-A <0.2 AI Normal 0.0-0.9 Sjogren's Anti SS-B <0.2 AI Normal 0.0-0.9 Renée Comment (SEE NOTE) Normal . 15 Istat Chem8+ Panel 04/23/2020 [facility] iSTAT HCT 40.0 % Normal 38.0-51.0 iSTAT Glucose 92 mg/dL Normal 70-105 iSTAT Sodium 142 mEq/L Normal 136-145 iSTAT Potassium 3.7 mEq/L Normal 3.5-5.1 iSTAT CA++ 4.8 mg/dL Normal 4.5-5.3 [facility] Chloride 104 mEq/L Normal 98-109 iSTAT Co2 30.0 MM/L High 23.0-27.0 iSTAT BUN 18 mg/dL Normal 8-26 iSTAT Creatinine 1.1 mg/dL Normal 0.6-1.3 CBC With Differential 04/23/2020 [facility] White Blood Count 9.5 10 Normal 4.0-10.0 [...] 36.0-66.0 Lymph % 29.0 % Normal 24.0-44.0 [place] % 5.4 % Normal 2.0-8.0 Eos % 8.1 % High 0.0-3.0 Baso % 0.8 % Normal 0.0-1.0 Immature Granulocyte % 0.2 % Normal 0-3.0 Nucleated Red Blood Cell % 0.0 % Normal 0-0 Neutrophils # 5.3 10 Normal 1.5-8.5 Lymph # 2.8 10 Normal 1.5-5.0 [place] # 0.5 10 Normal 0.0-0.8 Eos # 0.8 10 High 0.0-0.5 Baso # 0.1 10 Normal 0.0-0.2 Liver Profile 04/23/2020 [facility] Ast/Sgot 15 U/L Normal 7-37 Alt/SGPT 24 U/L Normal 12-78 Alkaline Phosphatase 130 U/L High 45-117 Bilirubin,Total 0.2 mg/dL Normal 0.2-1.0 Bilirubin,Direct < 0.1 mg/dL Normal 0.0-0.2 Total Protein 7.4 GM/DL Normal 6.4-8.2 Albumin 3.2 GM/DL Normal 3.2-5.2 Albumin/Globulin Ratio 0.8 Low 1.2-2.2 Laboratory test finding 04/23/2020 [facility] Lipase 194 U/L Normal 73-393 16 Ua W/ Reflex To Culture 04/23/2020 [facility] Appearance, Urine RFX HAZY Normal Clear Color, Urine RFX YELLOW Normal Yellow PH,Urine RFX 6.0 units Normal 5.0-9.0 Specific [place] Ur Auto RFX 1.020 Normal 1.002-1.035 Protein, [...] /LPF Normal 0-1 Reflex Urine Culture 04/23/2020 [facility] Reflex Urine Culture FULL REPORT IN L [...] Little GFR Left ESRD GFR <15 on INFORMATION SERVICES ASSISTANT 14 Negative <5 Equivocal 5 - 9 [...] (anti-Camargo) SLE 15 - 30% ------- --------- PROCESS ENGINEER Mixed Connective Tissue Disease 95% (U1 nRNP, SLE 30 - 50% anti-ribonucleoprotein) Polymyositis and/or Dermatomyositis 20% -------- --------- Scl-70 (antiDNA Scleroderma (diffuse) 20 - 35% topoisomerase) Crest 13% -------- --------- Edel-1 Polymyositis and/or Dermatomyositis 20 - 40% -------- --------- Centromere B Scleroderma - Crest variant 80% Performed at: RN - Lab[address] [id number] Human Resources Specialist: Pretty Swain MD, Phone: [phone] 16 note:<nlbl:demographic_chang ed> 17 FULL REPORT IN LAB NOTES (eC W and Medent). NO GROWTH CLINICAL SIGNIFICANCE 2 OR MORE ORGANISMS Procedures Date Code Description Status 06/29/2020 21642 Office/Outpatient Established Lo w MDM 20-29 Min Completed 06/15/2020 00704 Office/Outpatient Established Lo w MDM 20-29 Min Completed 06/15/2020 29648 Brief Emotional/Beha v Assessment W/ Scoring Doc [...] - Trav Camargo MD at [facility] Functional Status Functional Condition Comment Date Status Hearing Aid in both ears Active Mental Status Description No Information Available Referrals Refer to Reason for Referral Status Appt Date [facility] Rheumatology 39 y/o F with hx of elevated RENÉE, pls eval and treat. Sent [address] 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 Could be psychiatric related. Rule out cardiac etiology. Patient Notified 10/12/[address] [place] [address] [phone]
--- OUTSIDE RECORDS SUMMARY | 2020-12-18 15:05 | CCD ---
Author Author Miguel Angel Leanna Barnett Organization Unknown Address [address] [address] Phone Care Team Providers Care Employee Development Specialist Name Role Phone Ericka Michelle PCP Allergies, Adverse Reactions, Alerts Concept Allergy Name Reaction Severity Onset Date Status Documentation Date Phone Number Npid Taxonomy Code Taxonomy Desc Author Last Name Author Fi rst Name Concept Type 450775 nkda Active 02/09/2018 RXNORM Problem List Concept Problem Description Status Start Date Created Date Resolv ed Date Snomed Code F43.12 Post-traumatic stress disorder, chronic Active 10/15/2017 10/15/2017 F41.1 Generalized Anxiety Disorder Active 10/15/2017 10/15/2017 F14.20 Stimulant Use Disorder. Severe: Cocaine Active 10/15/2017 10/15/2017 Medications No Data in Section Social History Social History Element Description Concept Effective Date Smoking Status Unknown if ever smoked [id number] Immunizations No Data in Section Vital Signs No Data in Section Procedures Date Concept Id Description Targeted Site Concept Targeted Site Concept Type 11/17/2020 86524 Extended Individual Psychotherapy - 45 min CPT Patient has no history of implantable de vices Encounters Encounter Start Date End Date Encounter Type Description Diagnosis Di agnosis Desc Location Author First Name Author Last Name Npid Taxonomy Cod e Taxonomy Desc Phone Number Location Addr1 Location Addr2 Location [facility] Location [facility] Location Zip [id number] 11/17/2020 11/17/2020 15145 Extended Individual Psych otherapy - 45 min F43.12 Post-traumatic stress disorder, chronic [facility] Miguel Angel Barnett [id number] Mental [facility] [id number] [address] [address] Plan of Treatment No Data in Section Lab Results No Data in Section Instructions No Data in Section Insurance Providers Insurance Id Policy Effective Date Policy Thru Date Company N elena [id number] [address]
--- OUTSIDE RECORDS SUMMARY | 2020-12-18 15:05 | CCD ---
Author Author [facility] Organization [facility] Address Unknown Phone Unavailable Care Team Providers Care Chicken Sexer Name Role Phone Noemi Llanos Unavailable PROBLEMS Type Condition ICD9-CM Code VGR37-JP Code Onset Dates Condition S tatus W/U Status Risk SNOMED Code Notes Problem Contusion of upper arm 923.03 Active confirmed 33853125 Problem Obesity, unspecified 278.00 Active confirmed 333444821 Problem Contusion of abdominal wall 922.2 Active confirmed 01612837 Problem Spontaneous ecchymoses 782.7 Active confirmed 047700568 Problem Low vision, one eye, not otherwise specified 369.70 Active confirmed 75790014 Problem Elevated blood pressure reading without diagnosi s of hypertension 796.2 Active confirmed 847230728 Problem Contusion of hand(s) 923.20 Active confirmed 7519160 Problem Routine gynecological examination V72.31 Active confirmed 888076473731722 Problem Other screening breast examination V76.19 Activ e confirmed 38050448 Problem Asthma, unspecified, unspecified status 493.90 Active confirmed 32126363 Problem Decreased hearing 389.9 Active confirmed 10 5099218 Problem Abscess 682.9 Active confirmed 350990190 Problem Lump or mass in breast 611.72 Active confirmed 41683942 Problem Sebaceous cyst 706.2 Active confirmed 79042 3000 Problem Hx of ovarian cyst V13.29 Active confirmed 7 6303889 Problem Hx of infertility V13.29 Active confirmed Problem Fibrocystic breast disease 610.1 Active confirmed 47431152 Problem History of cervical dysplasia V13.22 Active confirm ed 803557402 Problem Pelvic pain in female 625.9 Active confirmed 570584018 Problem GERD (gastroesophageal reflux disease) 530.81 A ctive confirmed 472163653 Problem Myalgia M79.1 Active confirmed 52022979 Problem Obesity complicating in third trimester O99.213 Active confirmed Problem Candidal vaginitis 112.1 Active confirmed 7 4385208 Problem Body mass index (BMI) 40.0-44.9, adult Z68.41 A ctive confirmed 879342084 Problem Diarrhea 787.91 Active confirmed 06757816 Problem Intestinal infections due to clostridium difficile 008.45 Active confirmed 361139954 Problem Elevated C-reactive protein (CRP) R79.82 Active confirmed 880271783412131 Problem Fibromyalgia M79.7 Active confirmed 7136172 05 Problem Supervision of other normal Z34.80 Ac tive confirm 052954628 Problem Obesity complicating in second trimester O99.212 Active confirmed 031178060883 ALLERGIES Allergen (clinical drug ingredient) Drug/Non Drug Allergy do cumented on EMR Reaction Allergy Type Onset Date Status Flexeril Hives Drug Allergy Active Seafood, fish Angioedema Non Drug Allergy Activ e tramadol Tramadol HCl(ND Code:[address]-96) Hives Drug Aller gy Active Geodon Paranoid Non Drug Allergy Active atenolol 100 Hives Drug Allergy Active ziprasidone Ziprasidone HCl(NDC Code:[address]-41) Hives Drug A llergy Active nortriptyline Nortriptyline HCl(NDC Code:[address]-50) Hives Dr ug Allergy Active cyclobenzaprine Cyclobenzaprine HCl(NDC Code:[address]-22) Hives Drug Allergy Active Sea Food Anaphylaxis Non Drug Allergy Active tramadol Ultram(NDC Code:[address]-68) Hives Drug Allergy Active risperidone Risperidone(NDC Code:[address]-59) Hives Drug Aller gy Active amitriptyline Amitriptyline HCl(NDC Code:[address]-39) Hives Dr ug Allergy Active gabapentin Gabapentin(NDC Code:[address]-81) Hives Drug Allergy Active Imetrex Hives Non Drug Allergy Active Rispererdol dizzy Non Drug Allergy Active ENCOUNTERS from 1980 to 2020-10-26 Encounter Location Date Provider Diagnosis [facility] Dermatology 0 [facility] [phone] [place] [address] Oct, [facility] IMMUNIZATIONS No Information SOCIAL HISTORY [...] Medical History Migraines follows w/ Ericka Tate NP Medical History [...] Details Provider Name:Noemi Llanos, 2020-11-03 05:00:00 PM, [address] [place] [address], , [place], [place], [facility] [place], Insurance Providers Payer Name Payer Address Payer Phone Insured Name Patient Relati onship to Insured Coverage Start Date Coverage End Date [facility] [employer] [facility] [employer] [facility] [address] [facility] [phone] CHEN PETERS self
--- OUTSIDE RECORDS SUMMARY | 2020-12-18 15:05 | CCD | Continuity of Care Document ---
Author Author Leanna CAMARGO M.D. Organization Unknown Address [address] [place] [address] Phone [phone] Care Team Providers Care Manager Garage Name Role Phone Trav Camargo M.D. AUTM [phone] [facility] AUTM [phone] [facility] AUTM [phone] Debra Canales CREDIT CASHIER AUTM [phone] [facility] AUTM [phone] Tim Guthrie AUTM Unavailable [facility] Rheumatology AUTM [phone] [facility] Physical Therapy AUTM [phone] Kyaw Contreras MD AUTM [phone] [facility] Audiology & Physical Therapy AUTM [phone] [facility] Cardiology- [place] [facility] AUTM [phone] Problems Active Problems Provider Date Cluster B personality disorder Mercedes Martinez NP Onset: Mild mental handicap Mercedes Martinez NP Onset: 07/31/2016 Stimulant dependence Mercedes Martinez NP Onset: 07/31/2016 Vitamin D deficiency Trav Camargo MD Onset: 04/17/2017 Cannabis abuse, uncomplicated Kendell Ward, [employer]IST DANCER Onset: Alcohol abuse, uncomplicated Kendell Ward, SOLOIST DANCER Onset: Social History Type Date Description Comments [...] belt Allergies, Adverse Reactions, Alerts Active Allergies Criticality Reaction | Severity Comments Date Seafood Unable to assess criticality 07/18/2016 Amitriptyline Unable to assess criticality 07/18/2016 Nortriptyline Unable to assess criticality 07/18/2016 Atenolol Unable to assess criticality 07/18/2016 Risperdal Unable to assess criticality 07/18/2016 Geodon Unable to assess criticality 07/18/2016 FD&C Red 40 Retana Unable to assess criticality 07/18/2016 Yuma Dye Unable to assess criticality 07/18/2016 Gabapentin [...] CPT Code Status Date Vaccine Lot # [id number] Given 12/03/2016 Influenza (>35 months) P.F. Vaccine [...] Result H/L Range Note Laboratory test finding 10/21/2020 [facility] Anti-Histone Antibodies 3.1 units High 0.0-0.9 1 Anti DS-Dna AB By Crithidia Negative Normal Negative 2 Janey Titer & Pattern Negative Normal . 3 Anti Scleroderma Antibodies <0.2 AI Normal 0.0-0.9 4 Anti-Cardiolipin Antibodies 10/21/2020 [facility] Cardiolipin Iga Antibody <9 APLU/mL Normal 0-11 5 Cardiolipin Igg Antibody 10 GPLU/mL Normal 0-14 6 Cardiolipin Igm Antibody 9 MPLU/mL Normal 0-12 7 Anti-Sjogrens A&B Antibodies 10/21/2020 [facility] C Ssa Sjogrens A <0.2 AI Normal 0.0-0.9 SSB Sjogrens B <0.2 AI Normal 0.0-0.9 Laboratory test finding 10/21/2020 [facility] Anti Centromere Antibody <0.2 AI Normal 0.0-0.9 8 Anti-U1 DIRECTOR OF QUALITY IMPROVEMENT AB <20 units Normal <20 9 Anti Camargo(Sm) AB <20 units Normal <20 10 Beta-2 Glycoprotein 1 Loni Letha 10/21/2020 [facility] Beta-2 Glycoprotein I Loni Igg <9 Normal 0-20 11 Beta-2 Glycoprotein I Loni Iga <9 Normal 0-25 12 Beta-2 Glycoprotein I Loni Igm 10 Normal 0-32 13 Lupus Type Anticoagulant Scree 10/02/2020 [facility] PTT Lupus Type Anticoag Screen 1.4 High 0-1.2 14 Lupus Screen Confirmation 10/02/2020 [facility] Hexagonal Phase Phospholipid 0 sec Normal 0-11 Comment For Hexagonal Confirm1 (SEE NOTE) Normal . 15 Laboratory test finding 10/02/2020 [facility] Lupus Confirm Stago 1.27 High 0.00-1.20 16 Laboratory test finding 10/02/2020 [facility] Erythrocyte Sedimentation Rate 45 mm/hr High 0-20 Complement Total (CH50) > 60 U/mL Normal >41 17 CBC With Differential 10/02/2020 [facility] White Blood Count 7.8 10 Normal [...] 36.0-66.0 Lymph % 27.9 % Normal 24.0-44.0 Price % 6.4 % Normal 2.0-8.0 Eos % 5.6 % High 0.0-3.0 Baso % 0.4 % Normal 0.0-1.0 Immature Granulocyte % 0.3 % Normal 0-3.0 Nucleated Red Blood Cell % 0.0 % Normal 0-0 Neutrophils # 4.6 10 Normal 1.5-8.5 Lymph # 2.2 10 Normal 1.5-5.0 Price # 0.5 10 Normal 0.0-0.8 Eos # 0.4 10 Normal 0.0-0.5 Baso # 0.0 10 Normal 0.0-0.2 Laboratory test finding 10/02/2020 [facility] Phosphorus Level 3.6 mg/dL Normal 2.5-4.9 18 CPK Creatine Phosphokinase 43 U/L Normal 26-192 1 9 Magnesium Level 2.1 mg/dL Normal 1.8-2.4 20 Iron (Fe) 50 g/dL Normal 50-170 21 Complement C3 148 mg/dL Normal 90-180 22 Complement C4 23 mg/dL Normal 10-40 23 Thyroid Stimulating Hormone 0.828 uIU/ML Normal 0.358-3.740 24 Vitamin B12 Level 710 pg/mL Normal 247-911 25 Total 25(Oh) Vitamin D 24.7 NG/ML Low 30.0-100.0 26 C Reactive Protein Quantitativ 1.67 mg/dL High 0.00-0.30 27 CBC W/Automated Diff 06/19/2020 [facility] White Blood Count 7.1 10 Normal [...] 36.0-66.0 Lymph % 28.2 % Normal 24.0-44.0 Price % 5.5 % Normal 2.0-8.0 Eos % 8.1 % High 0.0-3.0 Baso % 1.0 % Normal 0.0-1.0 Immature Granulocyte % 0.3 % Normal 0-3.0 Nucleated Red Blood Cell % 0.0 % Normal 0-0 Neutrophils # 4.0 10 Normal 1.5-8.5 Lymph # 2.0 10 Normal 1.5-5.0 Price # 0.4 10 Normal 0.0-0.8 Eos # 0.6 10 High 0.0-0.5 Baso # 0.1 10 Normal 0.0-0.2 Laboratory test finding 06/19/2020 [facility] Erythrocyte Sedimentation Rate 41 mm/hr High 0-20 C Reactive Protein Quantitativ 1.13 mg/dL High 0.00-0.30 28 Rheumatoid Factor Quant < 10.0 IU/mL Normal <15.0 29 Comprehensive Metabolic Profil 06/19/2020 [facility] Glucose, Fasting 83 mg/dL Normal 70-100 Blood Urea Nitrogen 22 mg/dL High 7-18 Creatinine For GFR 0.83 mg/dL Normal 0.55-1.30 Glomerular Filtration Rate > 60.0 Normal >60 3 0 Sodium Level 139 mEq/L Normal 136-145 Potassium [...] Ratio 1.0 Low 1.2-2.2 Antinuclear Antibodies 06/19/2020 [facility] Antinuclear Antibodies Direct Positive Abnormal Negative Anti Double Strand-Dna AB 32 IU/mL High 0-9 31 DIRECTOR OF QUALITY IMPROVEMENT Antibodies <0.2 AI Normal 0.0-0.9 Camargo Antibodies <0.2 AI Normal 0.0-0.9 Sjogren's Anti SS-A <0.2 AI Normal 0.0-0.9 Sjogren's Anti SS-B <0.2 AI Normal 0.0-0.9 Janey Comment (SEE NOTE) Normal . 32 1 Negative <1.0 Weak Positive 1.0 - 1.5 Moderate Positive 1.6 - 2.5 Strong Positive >2.5 2 Specimen Comment: Test(s) 52 [id number] DIRECTOR OF QUALITY IMPROVEMENT Ab (RDL) Specimen Comment: was developed and its performance characteristics Specimen Comment: determined by [facility]. It has not been cleared or approved Specimen Comment: by the Food and Drug Administration. 3 Negative <1:80 Borderline 1:80 Positive >1:80 ICAP nomenclature: AC-0 For more information about Hep-2 cell patterns use ANApatterns.org, the official website for the International Consensus on Antinuclear Antibody (JANEY) Patterns (ICAP). Performed at: - [facility] [address] [id number] Appeals Coordinator: Pretty Swain MD, Phone: [phone] Performed at: - [facility] [address] [id number] Appeals Coordinator: Prabhakar Hudson MD, Phone: [phone] Performed at: [facility] [address] [place] [id number] Appeals Coordinator: Bora Wu MD, Phone: [phone] Specimen Comment: Test(s) 52 [id number] DIRECTOR OF QUALITY IMPROVEMENT Ab (RDL) Specimen Comment: was developed and its performance characteristics Specimen Comment: determined by [facility]. It has not been cleared or approved Specimen Comment: by the Food and Drug Administration. 5 Negative: <12 Indeterminate: 12 - 20 Low-Med Positive: >20 - 80 High Positive: >80 6 Negative: <15 Indeterminate: 15 - 20 Low-Med Positive: >20 - 80 High Positive: >80 7 Negative: <13 Indeterminate: 13 - 20 Low-Med Positive: >20 - 80 High Positive: >80 8 Specimen Comment: Test(s) 52 [id number] DIRECTOR OF QUALITY IMPROVEMENT Ab (RDL) Specimen Comment: was developed and its performance characteristics Specimen Comment: determined by [facility]. It has not been cleared or approved Specimen Comment: by the Food and Drug Administration. 9 Negative: <20 Weak Positive: 20 - 39 Moderate Positive: 40 - 80 Strong Positive: >80 10 Negative: <20 Weak Positive: 20 - 39 Moderate Positive: 40 - 80 Strong Positive: >80 11 Result Units: GPI IgG units . The reference interval reflects a 3SD or 99th percentile interval, which is thought to represent a potentially clinically significant result in accordance with the International Consensus Statement on the classification criteria for definitive antiphospholipid syndrome (APS). J Thromb Haem 2006;4:295-306. 12 Result Units: GPI IgA units . The reference interval reflects a 3SD or 99th percentile interval, which is thought to represent a potentially clinically significant result in accordance with the International Consensus Statement on the classification criteria for definitive antiphospholipid syndrome (APS). J Thromb Haem 2006;4:295-306. 13 Result Units: GPI IgM units . The reference interval reflects a 3SD or 99th percentile interval, which is thought to represent a potentially clinically significant result in accordance with the International Consensus Statement on the classification criteria for definitive antiphospholipid syndrome (APS). J Thromb Haem 2006;4:295-306. 14 RESULT IS 1.2 OR GREATER, FURTHER TESTING [...] coagulation factor deficiency or a specific inhibitor. 15 . Results do not indicate the presence of a Lupus Anticoagulant: abnormal high screening results (PTT-LA, dRVVT, mixing studies), may be due to medication (heparin, warfarin, aspirin), Factor inhibitors, anticardiolipin antibodies, or poor specimen integrity. Performed at: - [facility] [id number] Appeals Coordinator: Prabhakar Hudson MD, Phone: [phone] 16 NORMALIZED RATIO IS EQUAL TO OR GREATER THAN 1.20 LA IS PRESENT. SPECIMEN WILL BE SENT TO [facility], [address] [place]i Kim. [address] [facility] FOR CONFIRMATION. 17 Age Male Female 1 - 30 days [...] range values. Performed at: RN - [facility] [address] [id number] Appeals Coordinator: Pretty Swain MD, Phone: [phone] 18 note:<nlbl:demographic_chang ed> 19 note:<nlbl:demographic_chang ed> 20 note:<nlbl:demographic_chang ed> 21 note:<nlbl:demographic_chang ed> 22 note:<nlbl:demographic_chang ed> 23 note:<nlbl:demographic_chang ed> 24 note:<nlbl:demographic_chang ed> 25 VITAMIN B12 NORMAL RANGE NORMAL 247 - 911 PG/ML INDETERMINATE 211 - 246 PG/ML DEFICIENT LESS THAN 211 PG/ML 26 note:<nlbl:demographic_chang ed> 27 note:<nlbl:demographic_chang ed> 28 note:<nlbl:demographic_chang ed> 29 note:<nlbl:demographic_chang ed> 30 Units are mL/min/1.73 m2 Chronic Kidney Disease Staging per NKF: Stage I & II GFR >=60 Normal to Mildly Decreased Stage III GFR 30-59 Moderately Decreased Stage IV GFR 15-29 Severely Decreased Stage V GFR <15 Very Little GFR Left ESRD GFR <[address] [employer] 31 Negative <5 Equivocal 5 - 9 Positive >9 32 . Autoantibody Disease Association Condition Frequency -------- [...] (anti-Camargo) SLE 15 - 30% ------- --------- DIRECTOR OF QUALITY IMPROVEMENT Mixed Connective Tissue Disease 95% (U1 nRNP, SLE 30 - 50% anti-ribonucleoprotein) Polymyositis and/or Dermatomyositis 20% -------- --------- Scl-70 (antiDNA Scleroderma (diffuse) 20 - 35% topoisomerase) Crest 13% -------- --------- Edel-1 Polymyositis and/or Dermatomyositis 20 - 40% -------- --------- Centromere B Scleroderma - Crest variant 80% Performed at: RN - [facility] [address] [id number] Appeals Coordinator: Pretty Swain MD, Phone: [phone] Procedures Date Code Description Status 06/29/2020 18321 Office/Outpatient Established Lo w MDM 20-29 Min Completed 06/15/2020 14832 Office/Outpatient Established Lo w MDM 20-29 Min Completed 06/15/2020 66830 Brief Emotional/Beha v Assessment W/ Scoring Doc [...] 3:00 pm - Trav Camargo MD at [facility] Functional Status Functional Condition Comment Date Status Hearing Aid in both ears Active Mental Status Description No Information Available Referrals Refer to Reason for Referral Status Appt Date [facility] Rheumatology 39 y/o F with hx of elevated JANEY, pls eval and treat. Closed [address] [facility] 2nd [place] [address] [phone] 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 Could be psychiatric related. Rule out cardiac etiology. Closed 10/12/[address] [facility] [address] [place] [address] [phone]
--- OUTSIDE RECORDS SUMMARY | 2020-12-18 15:05 | CCD ---
Author Author [facility] Organization [facility] Address Unknown Phone Unavailable Care Team Providers Care Shared Services And Outsourcing Manager Name Role Phone Noemi Llanos Unavailable PROBLEMS Type Condition ICD9-CM Code LVJ29-QL Code Onset Dates Condition S tatus W/U Status Risk SNOMED Code Notes Problem Contusion of abdominal wall 922.2 Active confirmed 22542047 Problem Low vision, one eye, not otherwise specified 369.70 Active confirmed 06063735 Problem Obesity, unspecified 278.00 Active confirmed 291347514 Problem Contusion of hand(s) 923.20 Active confirmed 5946195 Problem Spontaneous ecchymoses 782.7 Active confirmed 461261001 Problem Diarrhea 787.91 Active confirmed 33209484 Problem Elevated blood pressure reading without diagnosi s of hypertension 796.2 Active confirmed 071341089 Problem Pelvic pain in female 625.9 Active confirmed 789917205 Problem Routine gynecological examination V72.31 Active confirmed 851193504353967 Problem Contusion of upper arm 923.03 Active confirmed 34334887 Problem Asthma, unspecified, unspecified status 493.90 Active confirmed 52169343 Problem Sebaceous cyst 706.2 Active confirmed 70671 3000 Problem Decreased hearing 389.9 Active confirmed 10 3553708 Problem Hx of infertility V13.29 Active confirmed Problem Lump or mass in breast 611.72 Active confirmed 70592046 Problem History of cervical dysplasia V13.22 Active confirm ed 267801626 Problem Hx of ovarian cyst V13.29 Active confirmed 7 5496885 Problem Other screening breast examination V76.19 Activ e confirmed 99994016 Problem Fibrocystic breast disease 610.1 Active confirmed 69032700 Problem GERD (gastroesophageal reflux disease) 530.81 A ctive confirmed 062768489 Problem Myalgia M79.1 Active confirmed 73323380 Problem Elevated C-reactive protein (CRP) R79.82 Active confirmed 062126743442144 Problem Body mass index (BMI) 40.0-44.9, adult Z68.41 A ctive confirmed 364035077 Problem Intestinal infections due to clostridium difficile 008.45 Active confirmed 771340830 Problem Undifferentiated connective tissue disease M35.9 Active confirmed 991103875 Problem Candidal vaginitis 112.1 Active confirmed 7 1247055 Problem Abscess 682.9 Active confirmed 094806568 Problem Fibromyalgia M79.7 Active confirmed 6645363 05 Problem Supervision of other normal Z34.80 Ac tive confirm 013852647 Problem Obesity complicating in second trimester O99.212 Active confirmed 475782393579 Problem Obesity complicating in third trimester O99.213 Active confirmed ALLERGIES Allergen (clinical drug ingredient) Drug/Non Drug Allergy do cumented on EMR Reaction Allergy Type Onset Date Status Flexeril Hives Drug Allergy Active Seafood, fish Angioedema Non Drug Allergy Activ e tramadol Tramadol HCl(NDC Code:[address]-43) Hives Drug Aller gy Active Geodon Paranoid Non Drug Allergy Active atenolol 100 Hives Drug Allergy Active ziprasidone Ziprasidone HCl(NDC Code:[address]-36) Hives Drug A llergy Active nortriptyline Nortriptyline HCl(NDC Code:[address]-00) Hives Dr ug Allergy Active cyclobenzaprine Cyclobenzaprine HCl(NDC Code:[address]-32) Hives Drug Allergy Active Sea Food Anaphylaxis Non Drug Allergy Active tramadol Ultram(NDC Code:[address]-79) Hives Drug Allergy Active risperidone Risperidone(NDC Code:[address]-92) Hives Drug Aller gy Active amitriptyline Amitriptyline HCl(NDC Code:[address]-53) Hives Dr ug Allergy Active gabapentin Gabapentin(NDC Code:[address]-26) Hives Drug Allergy Active Imetrex Hives Non Drug Allergy Active Rispererdol dizzy Non Drug Allergy Active ENCOUNTERS from 1980 to 2020-11-16 Encounter Location Date Provider Diagnosis [facility] Rheumatology [address] [facility] [phone] [place] [address] Nov, Noemi Llanos IMMUNIZATIONS No Information SOCIAL HISTORY Tobacco Use: [...] Notes Start Da te End Date Status MiraLax 17 GM/SCOOP 1 packet mixed with 8 ounces of fluid Orally Once a day as needed Active Valtrex 500 MG 1 tablet Orally twice a day for 7 day(s) Apr, Not-Taking Vitamin D 25 MCG (1000 UT) 1 tablet Orally Once a day for 30 day(s) Active Pregabalin 75 MG 1 capsule Oral twice daily Active EpiPen 2-Sal 0.3 MG/0.3ML as directed Injection Active Aimovig 140 MG/ML INJECT 140 MG UNDER THE SKIN ONCE A MONTH Subcutaneous monthly Active PROCEDURES No Information RESULTS No Results REASON FOR VISIT Left arm pain MEDICAL (GENERAL) HISTORY Type Description Date [...] Surgical History Shunt in the brain/ear tubes 1981 Surgical History Laparscopic exploratory 2013 Surgical History 04/04/2020 Hospitalization History Mental health admissions last in 201 5 Hospitalization History Childbirth x2 Goals Section No Information Health Concerns No Information MEDICAL EQUIPMENT No Information MENTAL STATUS No Information FUNCTIONAL STATUS No Information ASSESSMENTS No Information PLAN OF TREATMENT Next Appt Details Provider Name:Noemi Llanos, 2021-03-05 05:15:00 PM, [address] [place] [address], , [place], [place], [facility], Insurance Providers Payer Name Payer Address Payer Phone Insured Name Patient Relati onship to Insured Coverage Start Date Coverage End Date [facility] COMM[employer]AN [facility] [address] [facility] [id number] [employer] MEDICA[employer] [address] [facility] [id number] [employer] [place] self
--- OUTSIDE RECORDS SUMMARY | 2020-12-18 15:05 | CCD | Continuity of Care Document ---
Author Author Leanna CAMARGO M.D. Organization Unknown Address [address] [place] [address] Phone [phone] Care Team Providers Care Time Cycle Operator Name Role Phone Trav Camargo M.D. AUTM [phone] [facility] Orthopedics AUTM [phone] [facility] AUTM [phone] Debra Canales STEAM TANK OPERATOR AUTM [phone] [facility] Rheumatology AUTM [phone] Tim Guthrie AUTM Unavailable [facility] Rheumatology AUTM [phone] [facility] Physical Therapy AUTM [phone] Kyaw Contreras MD AUTM [facility] AUTM [phone] [facility] AUTM [phone] Problems Active Problems Provider Date Cluster B personality disorder Mercedes Martinez NP Onset: Mild mental handicap Mercedes Martinez NP Onset: 07/31/2016 Stimulant dependence Mercedes Martinez NP Onset: 07/31/2016 Vitamin D deficiency Trav Camargo MD Onset: 04/17/2017 Cannabis abuse, uncomplicated Kendell Lucas LCSW Onset: Alcohol abuse, uncomplicated Kendell Lance, MIRROR SILVERER Onset: Social History Type Date Description Comments [...] Geodon 07/18/2016 FD&C Red 40 Retana 07/18/2016 Woodridge Dye 07/18/2016 Gabapentin Urticaria Moderate pt states [...] CPT Code Status Date Vaccine Lot # [id number] Given 12/03/2016 Influenza (>35 months) P.F. Vaccine [...] H/L Range Note CBC With Differential 10/02/2020 [facility] White Blood Count 7.8 10 [...] 36.0-66.0 Lymph % 27.9 % Normal 24.0-44.0 Chicot % 6.4 % Normal 2.0-8.0 Eos % 5.6 % High 0.0-3.0 Baso % 0.4 % Normal 0.0-1.0 Immature Granulocyte % 0.3 % Normal 0-3.0 Nucleated Red Blood Cell % 0.0 % Normal 0-0 Neutrophils # 4.6 10 Normal 1.5-8.5 Lymph # 2.2 10 Normal 1.5-5.0 Chicot # 0.5 10 Normal 0.0-0.8 Eos # 0.4 10 Normal 0.0-0.5 Baso # 0.0 10 Normal 0.0-0.2 Laboratory test finding 10/02/2020 [facility] Erythrocyte Sedimentation Rate 45 mm/hr High 0-20 Complement Total (CH50) > 60 U/mL Normal >41 1 Lupus Type Anticoagulant Scree 10/02/2020 [facility] PTT Lupus Type Anticoag Screen 1.4 High 0-1.2 2 Laboratory test finding 10/02/2020 [facility] Lupus Confirm Stago 1.27 High 0.00-1.20 3 Laboratory test finding 10/02/2020 [facility] Phosphorus Level 3.6 mg/dL Normal 2.5-4.9 4 CPK Creatine Phosphokinase 43 U/L Normal 26-192 5 Magnesium Level 2.1 mg/dL Normal 1.8-2.4 6 Iron (Fe) 50 g/dL Normal 50-170 7 Complement C3 148 mg/dL Normal 90-180 8 Complement C4 23 mg/dL Normal 10-40 9 Thyroid Stimulating Hormone 0.828 uIU/ML Normal 0.358-3.740 10 Vitamin B12 Level 710 pg/mL Normal 247-911 11 Total 25(Oh) Vitamin D 24.7 NG/ML Low 30.0-100.0 12 C Reactive Protein Quantitativ 1.67 mg/dL High 0.00-0.30 13 Antinuclear Antibodies 06/19/2020 [facility] Antinuclear Antibodies Direct Positive Abnormal Negative Anti Double Strand-Dna AB 32 IU/mL High 0-9 14 CAR HIKER Antibodies <0.2 AI Normal 0.0-0.9 Camargo Antibodies <0.2 AI Normal 0.0-0.9 Sjogren's Anti SS-A <0.2 AI Normal 0.0-0.9 Sjogren's Anti SS-B <0.2 AI Normal 0.0-0.9 Renée Comment (SEE NOTE) Normal . 15 Comprehensive Metabolic Profil 06/19/2020 [facility] Glucose, Fasting 83 mg/dL Normal 70-100 Blood Urea Nitrogen 22 mg/dL High 7-18 Creatinine For GFR 0.83 mg/dL Normal 0.55-1.30 Glomerular Filtration Rate > 60.0 Normal >60 1 6 Sodium Level 139 mEq/L Normal 136-145 Potassium [...] 1.0 Low 1.2-2.2 Laboratory test finding 06/19/2020 [facility] Erythrocyte Sedimentation Rate 41 mm/hr High 0-20 C Reactive Protein Quantitativ 1.13 mg/dL High 0.00-0.30 17 Rheumatoid Factor Quant < 10.0 IU/mL Normal <15.0 18 CBC W/Automated Diff 06/19/2020 [facility] White Blood Count 7.1 10 [...] 36.0-66.0 Lymph % 28.2 % Normal 24.0-44.0 Chicot % 5.5 % Normal 2.0-8.0 Eos % 8.1 % High 0.0-3.0 Baso % 1.0 % Normal 0.0-1.0 Immature Granulocyte % 0.3 % Normal 0-3.0 Nucleated Red Blood Cell % 0.0 % Normal 0-0 Neutrophils # 4.0 10 Normal 1.5-8.5 Lymph # 2.0 10 Normal 1.5-5.0 Chicot # 0.4 10 Normal 0.0-0.8 Eos # 0.6 10 High 0.0-0.5 Baso # 0.1 10 Normal 0.0-0.2 Istat Chem8+ Panel 04/23/2020 [facility] iSTAT HCT 40.0 % Normal 38.0-51.0 iSTAT Glucose 92 mg/dL Normal 70-105 iSTAT Sodium 142 mEq/L Normal 136-145 iSTAT Potassium 3.7 mEq/L Normal 3.5-5.1 iSTAT CA++ 4.8 mg/dL Normal 4.5-5.3 iSTAT Chloride 104 mEq/L Normal 98-109 iSTAT Co2 30.0 MM/L High 23.0-27.0 iSTAT BUN 18 mg/dL Normal 8-26 iSTAT Creatinine 1.1 mg/dL Normal 0.6-1.3 CBC With Differential 04/23/2020 [facility] White Blood Count 9.5 10 [...] 36.0-66.0 Lymph % 29.0 % Normal 24.0-44.0 Chicot % 5.4 % Normal 2.0-8.0 Eos % 8.1 % High 0.0-3.0 Baso % 0.8 % Normal 0.0-1.0 Immature Granulocyte % 0.2 % Normal 0-3.0 Nucleated Red Blood Cell % 0.0 % Normal 0-0 Neutrophils # 5.3 10 Normal 1.5-8.5 Lymph # 2.8 10 Normal 1.5-5.0 Chicot # 0.5 10 Normal 0.0-0.8 Eos # 0.8 10 High 0.0-0.5 Baso # 0.1 10 Normal 0.0-0.2 Liver Profile 04/23/2020 [facility] Ast/Sgot 15 U/L Normal 7-37 Alt/SGPT 24 U/L Normal 12-78 Alkaline Phosphatase 130 U/L High 45-117 Bilirubin,Total 0.2 mg/dL Normal 0.2-1.0 Bilirubin,Direct < 0.1 mg/dL Normal 0.0-0.2 Total Protein 7.4 GM/DL Normal 6.4-8.2 Albumin 3.2 GM/DL Normal 3.2-5.2 Albumin/Globulin Ratio 0.8 Low 1.2-2.2 Laboratory test finding 04/23/2020 [facility] Lipase 194 U/L Normal 73-393 19 Ua W/ Reflex To Culture 04/23/2020 [facility] Appearance, Urine RFX HAZY Normal Clear Color, Urine RFX YELLOW Normal Yellow PH,Urine RFX 6.0 units Normal 5.0-9.0 Specific Donie Ur Auto RFX 1.020 Normal 1.002-1.035 Protein, [...] /LPF Normal 0-1 Reflex Urine Culture 04/23/2020 [facility] Reflex Urine Culture FULL REPORT IN L <SEE NOTE> Normal 20 1 Age Male Female 1 - 30 [...] range values. Performed at: RN - [facility] [address] [id number] Funeral Home Assistant: Pretty Swain MD, Phone: [phone] RESULT IS 1.2 OR GREATER, FURTHER [...] IS PRESENT. SPECIMEN WILL BE SENT TO [facility], [address] [place], [place]. [address] REFERE THE [facility] FOR CONFIRMATION. 4 note:<nlbl:demographic_chang ed> 5 note:<nlbl:demographic_chang ed> 6 note:<nlbl:demographic_chang ed> 7 note:<nlbl:demographic_chang ed> 8 note:<nlbl:demographic_chang ed> 9 note:<nlbl:demographic_chang ed> 10 note:<nlbl:demographic_chang ed> 11 VITAMIN B12 NORMAL RANGE NORMAL 247 - 911 PG/ML INDETERMINATE 211 - 246 PG/ML DEFICIENT LESS THAN 211 PG/ML 12 note:<nlbl:demographic_chang ed> 13 note:<nlbl:demographic_chang ed> 14 Negative <5 Equivocal 5 - 9 [...] (anti-Camargo) SLE 15 - 30% ------- --------- CAR HIKER Mixed Connective Tissue Disease 95% (U1 nRNP, SLE 30 - 50% anti-ribonucleoprotein) Polymyositis and/or Dermatomyositis 20% -------- --------- Scl-70 (antiDNA Scleroderma (diffuse) 20 - 35% topoisomerase) Crest 13% -------- --------- Edel-1 Polymyositis and/or Dermatomyositis 20 - 40% -------- --------- Centromere B Scleroderma - Crest variant 80% Performed at: - [facility] [address] [id number] Funeral Home Assistant: Pretty Swain MD, Phone: [phone] 16 Units are mL/min/1.73 m2 Chronic Kidney Disease Staging per NKF: Stage I & II GFR >=60 Normal to Mildly Decreased Stage III GFR 30-59 Moderately Decreased Stage IV GFR 15-29 Severely Decreased Stage V GFR <15 Very Little GFR Left ESRD GFR <15 on MANAGER OF MANUFACTURING 17 note:<nlbl:demographic_chang ed> 18 note:<nlbl:demographic_chang ed> 19 note:<nlbl:demographic_chang ed> 20 FULL REPORT IN LAB NOTES (eC W and Medent). NO GROWTH CLINICAL SIGNIFICANCE 2 OR MORE ORGANISMS Procedures Date Code Description Status 06/29/2020 68239 Office/Outpatient Established Lo w MDM 20-29 Min Completed 06/15/2020 86327 Office/Outpatient Established Lo w MDM 20-29 Min Completed 06/15/2020 38325 Brief Emotional/Beha v Assessment W/ Scoring Doc [...] 3:00 pm - Trav Camargo MD at [facility] Functional Status Functional Condition Comment Date Status Hearing Aid in both ears Active Mental Status Description No Information Available Referrals Refer to Reason for Referral Status Appt Date [facility] Rheumatology 39 y/o F with hx of elevated RENÉE, pls eval and treat. 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 Could be psychiatric related. Rule out cardiac etiology. Patient Notified 10/12/[address] [place], [place] [address] [phone]
--- OUTSIDE RECORDS SUMMARY | 2020-12-18 15:05 | CCD ---
Author Author [facility] Organization [facility] Address Unknown Phone Unavailable Care Team Providers Care Drilling Inspector Name Role Phone Noemi Llanos Unavailable PROBLEMS Type Condition ICD9-CM Code [id number] Code Onset Dates Condition S tatus W/U Status Risk SNOMED Code Notes Problem Contusion of abdominal wall 922.2 Active confirmed 66372849 Problem Low vision, one eye, not otherwise specified 369.70 Active confirmed 43753011 Problem Obesity, unspecified 278.00 Active confirmed 461605533 Problem Contusion of hand(s) 923.20 Active confirmed 1991905 Problem Spontaneous ecchymoses 782.7 Active confirmed 843254411 Problem Diarrhea 787.91 Active confirmed 81243565 Problem Elevated blood pressure reading without diagnosi s of hypertension 796.2 Active confirmed 564265681 Problem Pelvic pain in female 625.9 Active confirmed 510941894 Problem Routine gynecological examination V72.31 Active confirmed 392410308560399 Problem Contusion of upper arm 923.03 Active confirmed 96923909 Problem Asthma, unspecified, unspecified status 493.90 Active confirmed 17111093 Problem Sebaceous cyst 706.2 Active confirmed 60324 3000 Problem Decreased hearing 389.9 Active confirmed 10 2152603 Problem Hx of infertility V13.29 Active confirmed Problem Lump or mass in breast 611.72 Active confirmed 30145190 Problem History of cervical dysplasia V13.22 Active confirm ed 244946148 Problem Hx of ovarian cyst V13.29 Active confirmed 7 7904263 Problem Other screening breast examination V76.19 Activ e confirmed 92681712 Problem Fibrocystic breast disease 610.1 Active confirmed 06184657 Problem GERD (gastroesophageal reflux disease) 530.81 A ctive confirmed 576139530 Problem Myalgia M79.1 Active confirmed 41859358 Problem Elevated C-reactive protein (CRP) R79.82 Active confirmed 416497864080592 Problem Body mass index (BMI) 40.0-44.9, adult Z68.41 A ctive confirmed 543978185 Problem Intestinal infections due to clostridium difficile 008.45 Active confirmed 304218425 Problem Undifferentiated connective tissue disease M35.9 Active confirmed 283326445 Problem Candidal vaginitis 112.1 Active confirmed 7 3326811 Problem Abscess 682.9 Active confirmed 501969958 Problem Fibromyalgia M79.7 Active confirmed 4773868 05 Problem Supervision of other normal Z34.80 Ac tive confirm 079188258 Problem Obesity complicating in second trimester O99.212 Active confirmed 437025628606 Problem Obesity complicating in third trimester O99.213 Active confirmed ALLERGIES Allergen (clinical drug ingredient) Drug/Non Drug Allergy do cumented on EMR Reaction Allergy Type Onset Date Status Flexeril Hives Drug Allergy Active Seafood, fish Angioedema Non Drug Allergy Activ e tramadol Tramadol HCl(NDC Code:[address]-57) Hives Drug Aller gy Active Geodon Paranoid Non Drug Allergy Active atenolol 100 Hives Drug Allergy Active ziprasidone Ziprasidone HCl(NDC Code:[address]-71) Hives Drug A llergy Active nortriptyline Nortriptyline HCl(NDC Code:[address]-93) Hives Dr ug Allergy Active cyclobenzaprine Cyclobenzaprine HCl(NDC Code:[address]-96) Hives Drug Allergy Active Sea Food Anaphylaxis Non Drug Allergy Active tramadol Ultram(NDC Code:[address]-69) Hives Drug Allergy Active risperidone Risperidone(NDC Code:[address]-56) Hives Drug Aller gy Active amitriptyline Amitriptyline HCl(NDC Code:[address]-80) Hives Dr ug Allergy Active gabapentin Gabapentin(NDC Code:[address]-90) Hives Drug Allergy Active Imetrex Hives Non Drug Allergy Active Rispererdol dizzy Non Drug Allergy Active ENCOUNTERS from 1980 to 2020-11-19 Encounter Location Date Provider Diagnosis [facility] [phone] [place] [address] Nov, [facility] Positive RENÉE (antinuclear an tibody) R76.8 ; Undifferentiated connective tissue disease M35.9 ; Joint effusion of multiple sites M25.40 ; Myalgia M79.10 and Trochanteric bursitis, unspecified laterality M70.60 IMMUNIZATIONS No Information SOCIAL HISTORY Tobacco Use: [...] FOR REFERRAL No Information VITAL SIGNS Weight 305.2 lbs Nov, Weight-kg 138.44 kg Nov, Height 66 in Nov, BMI 49.26 kg/m2 Nov, Heart Rate 78 /min Nov, Respiratory Rate 18 /min Nov, Temperature 97.2 degrees Fahrenheit Nov, Oximetry 100 Nov, Blood pressure systolic 138 mm Hg Nov, Blood pressure diastolic 78 mm Hg Nov, MEDICATIONS Medication SIG (Take, Route, Frequency, Duration) [...] Information RESULTS No Results REASON FOR VISIT Chen presents today for results visit. MEDICAL (GENERAL) HISTORY Type Description Date Medical [...] Medical History Migraines follows w/ Ericka Tate [employer]PERVIS[employer] Medical History C. diff colitis 03/15 Medical [...] Notes Treatment Notes Treatm ent Clinical Notes Nov, Positive RENÉE (antinuclear antibody) (ICD-10 - R7 6.8) History of positive RENÉE; the repeat RENÉE is negative. The AVISE assessment was consistent with a low likelihood of systemic lupus erythematosus (anti-woodruff, anti-dsDNA, SSA, SSB (anti-La), ribonucleoprotein, centromere antibodies, anti- topoisomerase I, antiphospholipid antibodies (cardiolipin IgM & IgG, Beta-2 Glycoprotein IgM & IgG), Rheumatoid factor, CCP Ab - all negative). CBC w/ diff and complement levels (C3, C4, CH50) were within normal limits. Urinalysis, and urine protein:creatinine ratio were unremarkable. Lupus anticoagulant negative. The histone antibody is positive. Nov, Undifferentiated connective tissue disease (ICD- 10 - M35.9) The clinical presentation is consistent with undifferentiated connective tissue disease (inflammatory arthritis, histone antibodies). At this time, the patient has clinical findings associated with an underlying rheumatologic disease;dy however, it does not currently fit into a differentiated connective tissue disease. Will monitor closely for a transition from the undifferentiated connective tissue disease to a differentiated connective tissue disease. - Discussed the laboratory and imaging results. - Counseling provided on the disease course, symptomatology, complications, and prognosis of undifferentiated connective tissue disease (uCTD). - Discussed the importance of a healthy, well balanced life style and making healthy choices. - Recommended and discussed several lifestyle interventions to improve her uCTD. a. Discussed the importance of sleep (consistent sleep schedule, sleeps less than 9 hours & more than 5 hours, limit electronic devices at least 30-60 minutes before bedtime, meals at least three hours before bedtime); without a good night sleep, it will be extremely difficult to successfully treat the undifferentiated connective tissue disease. Information will be provided about Sleep Hygiene. b. Discussed the importance of a well balanced diet, which has increased fruits and vegetables, decreased processed foods, and sugar intake. Encouraged the incorporation of the Mediterranean diet into the lifestyle. Information will be provided about the Mediterranean diet today. c. Discussed the importance of physical activity and incorporating a consistent exercise regimen. d. Discussed the importance of good mental health, emotional stability, and stress management in her uCTD. Information will be provided about stress management. - Information will be provided about undifferentiated connective tissue disease. - At this time, will defer the initiation of immunosuppressant therapy and strongly encouraged the patient to optimize the lifestyle modifications. - She was agreeable and expressed understanding of the plan. All questions and concerns were addressed. Nov, Joint effusion of multiple sites (ICD-10 - M25.4 0) The effusion of joints associated with elevated ESR & CRP is consistent with a new diagnosis of inflammatory arthritis. Nov, Myalgia (ICD-10 - M79.10) TSH, vitamin B12, magnesium, phosphorous, CK were within normal limits and iron on the lower end of normal range. Expect some improvement with the vitamin D supplementation. The patient was also encouraged to increase foods with iron (information provided). Nov, Trochanteric bursitis, unspecified laterality (I CD-10 - M70.60) Clinical presentation consistent w/ trochanteric bursitis of the bilateral hips. Encouraged exercises (3x/week for approximately 10 minutes). If there is no significant improvement with the exercises, then will consider physical therapy for improvement in the symptomatology. Nov, Other The total time spent on the date of the encounter: 35 minutes PLAN OF TREATMENT Treatment Notes Assessment Notes Clinical Notes Positive RENÉE (antinuclear antibody) Hist ory of positive RENÉE; the repeat RENÉE is negative. The AVISE assessment was consistent with a low likelihood of systemic lupus erythematosus (anti-woodruff, anti-dsDNA, SSA, SSB (anti-La), ribonucleoprot ein, centromere antibodies, anti-topoisomerase I, antiphospholipid antibodies (cardiolipin IgM & IgG, Beta-2 Glycoprotein IgM & IgG), Rheumatoid factor, CCP Ab - all negative). CBC w/ diff and complement levels (C3, C4, CH50) were within normal limits. Urinalysis, and urine protein:creatinine ratio were unremarkable. Lupus anticoagulant negative. The histone antibody is positive. Undifferentiated connective tissue disease The clinical presentation is consistent with undifferentiated connective tissue disease (inflammatory arthritis, histone antibodies). At this time, the patient has clinical findings associated with an underlying rheumatologic disease;dy however, it does not currently fit into a differentiated connective tissue disease. Will monitor closely for a transition from the undifferentiated connective tissue disease to a differentiated connective tissue disease.- Discussed the laboratory and imaging results.- Counseling provided on the disease course, symptomatology, complications, and prognosis of undifferentiated connective tissue disease (uCTD).- Discussed the importance of a healthy, well balanced life style and making healthy choices.- Recommended and discussed several lifestyle interventions to improve her uCTD.a. Discussed the importance of sleep (consistent sleep schedule, sleeps less than 9 hours & more than 5 hours, limit electronic devices at least 30-60 minutes before bedtime, meals at least three hours before bedtime); without a good night sleep, it will be extremely difficult to successfully treat the undifferentiated connective tissue disease. Information will be provided about Sleep Hygiene.b. Discussed the importance of a well balanced diet, which has increased fruits and vegetables, decreased processed foods, and sugar intake. Encouraged the incorporation of the Mediterranean diet into the lifestyle. Information will be provided about the Mediterranean diet today.c. Discussed the importance of physical activity and incorporating a consistent exercise regimen.d. Discussed the importance of good mental health, emotional stability, and stress management in her uCTD. Information will be provided about stress management.- Information will be provided about undifferentiated connective tissue disease.- At this time, will defer the initiation of immunosuppressant therapy and strongly encouraged the patient to optimize the lifestyle modifications.- She was agreeable and expressed understanding of the plan. All questions and concerns were addressed. Joint effusion of multiple sites The eff usion of joints associated with elevated ESR & CRP is consistent with a new diagnosis of inflammatory arthritis. Myalgia TSH, vitamin B12, ma gnesium, phosphorous, CK were within normal limits and iron on the lower end of normal range. Expect some improvement with the vitamin D supplementation. The patient was also encouraged to increase foods with iron (information provided). Trochanteric bursitis, unspecified laterality Clinical presentation consistent w/ trochanteric bursitis of the bilateral hips. Encouraged exercises (3x/week for approximately 10 minutes). If there is no significant improvement with the exercises, then will consider physical therapy for improvement in the symptomatology. Next Appt Details Provider Name:Noemi Llanos, 2021-03-05 05:15:00 PM, [address] [place] [address], [place], [place], [facility] [place] [facility] [place], Insurance Providers Payer Name Payer Address Payer Phone Insured Name Patient Relati onship to Insured Coverage Start Date Coverage End Date MEDICAID [employer] [address] [facility] [id number] [employer] [facility] [employer] [facility] [place] [address] [facility] [phone] CHEN PETERS
--- OUTSIDE RECORDS SUMMARY | 2020-12-18 15:05 | CCD ---
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 Role Phone Noemi Llanos Unavailable PROBLEMS Type Condition ICD9-CM Code LIC37-RA Code Onset Dates Condition S tatus W/U Status Risk SNOMED Code Notes Problem Contusion of upper arm 923.03 Active confirmed 73284150 Problem Obesity, unspecified 278.00 Active confirmed 803878310 Problem Contusion of abdominal wall 922.2 Active confirmed 24544144 Problem Spontaneous ecchymoses 782.7 Active confirmed 828155400 Problem Low vision, one eye, not otherwise specified 369.70 Active confirmed 83124751 Problem Elevated blood pressure reading without diagnosi s of hypertension 796.2 Active confirmed 689673398 Problem Contusion of hand(s) 923.20 Active confirmed 2540140 Problem Routine gynecological examination V72.31 Active confirmed 330759478719654 Problem Other screening breast examination V76.19 Activ e confirmed 46492213 Problem Asthma, unspecified, unspecified status 493.90 Active confirmed 69083424 Problem Decreased hearing 389.9 Active confirmed 10 9824664 Problem Abscess 682.9 Active confirmed 777999364 Problem Lump or mass in breast 611.72 Active confirmed 58295599 Problem Sebaceous cyst 706.2 Active confirmed 56032 3000 Problem Hx of ovarian cyst V13.29 Active confirmed 7 0922993 Problem Hx of infertility V13.29 Active confirmed Problem Fibrocystic breast disease 610.1 Active confirmed 74817532 Problem History of cervical dysplasia V13.22 Active confirm ed 981755942 Problem Pelvic pain in female 625.9 Active confirmed 434618366 Problem GERD (gastroesophageal reflux disease) 530.81 A ctive confirmed 425274060 Problem Myalgia M79.1 Active confirmed 76324096 Problem Obesity complicating in third trimester O99.213 Active confirmed Problem Candidal vaginitis 112.1 Active confirmed 7 7760167 Problem Body mass index (BMI) 40.0-44.9, adult Z68.41 A ctive confirmed 044434170 Problem Diarrhea 787.91 Active confirmed 98160078 Problem Intestinal infections due to clostridium difficile 008.45 Active confirmed 151971001 Problem Elevated C-reactive protein (CRP) R79.82 Active confirmed 925014364593354 Problem Fibromyalgia M79.7 Active confirmed 6141486 05 Problem Supervision of other normal Z34.80 Ac tive confirm 754812089 Problem Obesity complicating in second trimester O99.212 Active confirmed 421588054026 ALLERGIES Allergen (clinical drug ingredient) Drug/Non Drug Allergy do cumented on EMR Reaction Allergy Type Onset Date Status Flexeril Hives Drug Allergy Active Seafood, fish Angioedema Non Drug Allergy Activ e tramadol Tramadol HCl(NDC Code:[address]-92) Hives Drug Aller gy Active Geodon Paranoid Non Drug Allergy Active atenolol 100 Hives Drug Allergy Active ziprasidone Ziprasidone HCl(NDC Code:[address]-10) Hives Drug A llergy Active nortriptyline Nortriptyline HCl(NDC Code:[address]-07) Hives Dr ug Allergy Active cyclobenzaprine Cyclobenzaprine HCl(NDC Code:[address]-18) Hives Drug Allergy Active Sea Food Anaphylaxis Non Drug Allergy Active tramadol Ultram(NDC Code:[address]-27) Hives Drug Allergy Active risperidone Risperidone(NDC Code:[address]-21) Hives Drug Aller gy Active amitriptyline Amitriptyline HCl(NDC Code:[address]-89) Hives Dr ug Allergy Active gabapentin Gabapentin(NDC Code:[address]-06) Hives Drug Allergy Active Imetrex Hives Non Drug Allergy Active Rispererdol dizzy Non Drug Allergy Active ENCOUNTERS from 1980 to 2020-10-18 Encounter Location Date Provider Diagnosis [facility] Rheumatology [address] [place] [address] [place] [address] 29 Aug, 2020 [facility] Positive RENÉE (antinuclear an tibody) R76.8 ; Joint effusion of multiple sites M25.40 [...] FOR REFERRAL No Information VITAL SIGNS Weight 297.8 lbs Aug, Weight-kg 135.1 kg Aug, Height 66 in Aug, BMI 48.06 kg/m2 Aug, Heart Rate 90 /min Aug, Respiratory Rate 18 /min Aug, Temperature 97.4 degrees Fahrenheit Aug, Oximetry 97 Aug, Blood pressure systolic 118 mm Hg Aug, Blood pressure diastolic 72 mm Hg Aug, MEDICATIONS Medication SIG (Take, Route, Frequency, Duration) [...] Subcutaneous monthly Active PROCEDURES No Information RESULTS Component Value Reference Range COMPLEMENT C3 Reviewed date:10/02/2020 19:18:57 Interpretation: Performing Lab:[facility], [facility] [id number] , ,[place] [address] COMPLEMENT C3 148 90-180 COMPLEMENT C4 Reviewed date:10/02/2020 19:18:57 Interpretation: Performing Lab:[facility] LAB[facility]ATORY [address] [facility] [address] , ,[place] [address] COMPLEMENT C4 23 10-40 CBC with Differential Reviewed date:10/02/2020 19:18:57 Interpretation: Performing Lab:[facility] LABORATORY [address] [facility] [address] , ,[place] [address] WHITE BLOOD COUNT 7.8 4.0-10.0 RED BLOOD COUNT 4.54 4.00-5.40 HEMOGLOBIN 12.9 12.0-15.5 HEMATOCRIT 39.2 36.0-47.0 MEAN CORPUSCULAR VOLUME 86.3 80.0-96.0 MEAN CORPUSCULAR HEMOGLOBIN 28.4 27.0-33.0 MEAN CORPUSCULAR HGB CONC 32.9 32.0-36.5 RED CELL DISTRIBUTION WIDTH 13.3 11.5-14.5 PLATELET COUNT, AUTOMATED 212 150-450 NEUTROPHILS % 59.4 36.0-66.0 LYMPH % 27.9 24.0-44.0 MONO % 6.4 2.0-8.0 EOS % 5.6 0.0-3.0 BASO % 0.4 0.0-1.0 NEUTROPHILS # 4.6 1.5-8.5 LYMPH # 2.2 1.5-5.0 MONO # 0.5 0.0-0.8 EOS # 0.4 0.0-0.5 BASO # 0.0 0.0-0.2 C REACTIVE PROTEIN QUANTITATIV (At [facility] L ab) Reviewed date:10/02/2020 19:18:58 Interpretation: Performing Lab:[facility] LABORATORY [address] [facility] [address] , ,[place] [address] C REACTIVE PROTEIN QUANTITATIV 1.67 0.00-0.30 ERYTHROCYTE SEDIMENTATION RATE Reviewed date:10/02/2020 19:18:58 Interpretation: Performing Lab:[facility] LAB[facility] [address] [place] [id number] , ,[place] [id number] ERYTHROCYTE SEDIMENTATION RATE 45 0-20 PHOSPHOROUS LEVEL Reviewed date:10/02/2020 19:18:58 Interpretation: Performing Lab:[facility] [address] [place] [address] , ,[place] [id number] PHOSPHORUS LEVEL 3.6 2.5-4.9 CPK CREATINE PHOSPHOKINASE Reviewed date:10/02/2020 19:18:57 Interpretation: Performing Lab:[facility] LAB[facility]ORY [address] [place] [address] , ,[place] [id number] CPK CREATINE PHOSPHOKINASE 43 26-192 IRON (FE) Reviewed date:10/02/2020 19:18:58 Interpretation: Performing Lab:[facility] [address] [place] [address] , ,[place] [address] IRON (FE) 50 50-170 MAGNESIUM LEVEL Reviewed date:10/02/2020 19:18:58 Interpretation: Performing Lab:[facility] [address] [place] [address] , ,[place] [id number] MAGNESIUM LEVEL 2.1 1.8-2.4 CREATININE,RANDOM URINE Reviewed date:10/02/2020 19:18:58 Interpretation: Performing Lab:[facility] LAB[facility] [address] [place] [address] , ,[place] [id number] CREATININE,RANDOM URINE 175.0 TOTAL PROTEIN,RANDOM URINE Reviewed date:10/02/2020 19:18:58 Interpretation: Performing Lab:[facility] LAB[facility] [address] [place] [address] , ,[place] [id number] TOTAL PROTEIN,RANDOM URINE 12.4 0.0-12.0 UA URINALYSIS Reviewed date:10/02/2020 19:18:58 Interpretation: Performing Lab:[facility], [facility] [address] [facility] [address] , ,[place] [address] [facility] Ankle, complete Reviewed date:10/02/2020 19:18:58 Interpretation: Performing Lab:[facility],[address]], ,[place] [address] [facility] Wrist, complete Reviewed date:10/02/2020 19:18:58 Interpretation: Performing Lab:[facility],[address]], ,[place] [address] [facility] Hand, complete Reviewed date:10/02/2020 19:18:58 Interpretation: Performing Lab:[facility],[address]], ,[place] [id number] VITAMIN D 25-HYDROXY Reviewed date:10/02/2020 19:18:58 Interpretation: Performing Lab:[facility] LABORATORY [address] [facility] [address] , ,[place] [id number] TOTAL 25(OH) VITAMIN D 24.7 30.0-100.0 VITAMIN B12 LEVEL Reviewed date:10/02/2020 19:18:58 Interpretation: Performing Lab:[facility] LABORATORY [address] [facility] [address] , ,[place] [address] VITAMIN B12 LEVEL 710 247-911 COMPLEMENT TOTAL (CH50) Reviewed date:10/12/2020 08:27:20 Interpretation: Performing Lab:[facility], [facility] [address] [facility] [address] , ,[place] [id number] COMPLEMENT TOTAL (CH50) > 60 >41 LUPUS TYPE ANTICOAGULANT SCREE Reviewed date:10/12/2020 08:27:20 Interpretation: Performing Lab:[facility] LABORATORY [address] [facility] [address] , ,[place] [id number] PTT LUPUS TYPE ANTICOAG SCREEN 1.4 0-1.2 TSH Reviewed date:10/12/2020 08:27:20 Interpretation: Performing Lab:[facility], [facility] [address] [facility] [address] , ,[facility] THYROID STIMULATING HORMONE 0.828 0.358-3.740 LUPC Reviewed date:10/12/2020 08:27:19 Interpretation: Performing Lab:[facility] access hospital LABORATORY [address] [facility] [address] , ,[facility] NORMALIZED RATIO 1.27 0.00-1.20 REASON FOR VISIT C/o pain all over her body. Patient states that she has been diagnosed with fibr omyalgia. C/o joint pain in all joints. Patient has been seen by Dr. Ortega on ce. Patient states that she has seen Dr. Ortega on 04/06/2019 in office. States that Dr. Ortega diagnosed her with fibromyalgia at last visit. States that she has been dropping things, due to bilateral hand weakness. 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 diff colitis 03/15 Medical [...] Notes Treatment Notes Treatm ent Clinical Notes Aug, Positive RENÉE (antinuclear antibody) (ICD-10 - R7 6.8) Will perform further investigation of a possible underlying autoimmune disease, given the findings of a history of positive RENÉE (no titer) and positve dsDNA. Based on the symptomatology, physical examination, and current laboratory evaluation, will perform AVISE testing (specialized autoimmune rheumatic disease test) for further evaluation. Will also obtain CBC w/ diff, complement levels (C3, C4, CH50), lupus anticoagulant, urinalysis, and urine protein:creatinine ratio. Aug, Joint effusion of multiple sites (ICD-10 - M25.4 0) There is swelling and tenderness in multiple joints (fingers, wrists, ankles), which is concerning for inflammatory arthritis. Will perform further testing to evaluate this physical finding. Will obtain inflammatory markers (ESR, CRP) to investigate the underlying etiology of the joint swelling. Will also perform x- rays of the hands, wrists, and ankles to evaluate for structural abnormalities and joint damage contributing to joint pain. Aug, Myalgia (ICD-10 - M79.10) Given the widespread pain and somatic symptoms, will perform further investigation. Will check TSH, vitamin D and vitamin B12, given the muscle aches. Will check creatinine kinase to evaluate for elevated muscle enzymes, given the muscle pain. Nutritional deficiencies can contribute to increased joint pain and muscle aches. Will check iron, magnesium, and phosphorous. Aug, Trochanteric bursitis, unspecified laterality (I CD-10 - M70.60) Clinical presentation consistent w/ trochanteric bursitis of the bilateral hips. Information and exercises will be provided today. Recommend exercises (3x/week for approximately 10 minutes). If there is no significant improvement with the exercises, then will consider physical therapy for improvement in the symptomatology. Aug, Other Recommend trocha nteric bursitis exercises (3x/week for approximately 10 minutes). The total time spent on the date of the encounter: 47 minutes PLAN OF TREATMENT Treatment Notes Assessment Notes Clinical Notes Positive RENÉE (antinuclear antibody) Will perform further investigation of a possible underlying autoimmune disease, given the findings of a history of positive RENÉE (no titer) and positve dsDNA. Based on the symptomatology, physical examination, and current laboratory evaluation, will perform AVISE testing (specialized autoimmune rheumatic disease test) for further evaluation. Will also obtain CBC w/ diff, complement levels (C3, C4, CH50), lupus anticoagulant, urinalysis, and urine protein:creatinine ratio. Joint effusion of multiple sites There i s swelling and tenderness in multiple joints (fingers, wrists, ankles), which is concerning for inflammatory arthritis. Will perform further testing to evaluate this physical finding. Will obtain inflammatory markers (ESR, CRP) to investigate the underlying etiology of the joint swelling. Will also perform x-rays of the hands, wrists, and ankles to evaluate for structural abnormalities and joint damage contributing to joint pain. Myalgia Given the widespread pain and somatic symptoms, will perform further investigation. Will check TSH, vitamin D and vitamin B12, given the muscle aches. Will check creatinine kinase to evaluate for elevated muscle enzymes, given the muscle pain. Nutritional deficiencies can contribute to increased joint pain and muscle aches. Will check iron, magnesium, and phosphorous. Trochanteric bursitis, unspecified laterality Clinical presentation consistent w/ trochanteric bursitis of the bilateral hips. Information and exercises will be provided today. Recommend exercises (3x/week for approximately 10 minutes). If there is no significant improvement with the exercises, then will consider physical therapy for improvement in the symptomatology. Treatment Notes Test Name Order Date MISCELLANEOUS TEST LAB 2020-09-28 Next Appt Details Provider Name:Noemi Llanos, 2020-11-03 05:00:00 PM, [address] [place] [address], [place], [address], Insurance Providers Payer Name Payer Address Payer Phone Insured Name Patient Relati onship to Insured Coverage Start Date Coverage End Date [facility]ITY [facility] [address] [facility] [phone] CHEN PETERS self
--- OUTSIDE RECORDS SUMMARY | 2020-12-18 15:05 | CCD ---
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 Name Role Phone Noemi Llanos Unavailable PROBLEMS Type Condition ICD9-CM Code UCR43-WU Code Onset Dates Condition S tatus W/U Status Risk SNOMED Code Notes Problem Contusion of upper arm 923.03 Active confirmed 28562902 Problem Obesity, unspecified 278.00 Active confirmed 472267336 Problem Contusion of abdominal wall 922.2 Active confirmed 46328122 Problem Spontaneous ecchymoses 782.7 Active confirmed 333850616 Problem Low vision, one eye, not otherwise specified 369.70 Active confirmed 64924227 Problem Elevated blood pressure reading without diagnosi s of hypertension 796.2 Active confirmed 310136996 Problem Contusion of hand(s) 923.20 Active confirmed 2943477 Problem Routine gynecological examination V72.31 Active confirmed 590340342737769 Problem Other screening breast examination V76.19 Activ e confirmed 05703620 Problem Asthma, unspecified, unspecified status 493.90 Active confirmed 89326036 Problem Decreased hearing 389.9 Active confirmed 10 7108010 Problem Abscess 682.9 Active confirmed 948656318 Problem Lump or mass in breast 611.72 Active confirmed 78355912 Problem Sebaceous cyst 706.2 Active confirmed 32662 3000 Problem Hx of ovarian cyst V13.29 Active confirmed 7 2838618 Problem Hx of infertility V13.29 Active confirmed Problem Fibrocystic breast disease 610.1 Active confirmed 33832787 Problem History of cervical dysplasia V13.22 Active confirm ed 112908657 Problem Pelvic pain in female 625.9 Active confirmed 294498407 Problem GERD (gastroesophageal reflux disease) 530.81 A ctive confirmed 684453244 Problem Myalgia M79.1 Active confirmed 93981849 Problem Obesity complicating in third trimester O99.213 Active confirmed Problem Candidal vaginitis 112.1 Active confirmed 7 8284804 Problem Body mass index (BMI) 40.0-44.9, adult Z68.41 A ctive confirmed 826523205 Problem Diarrhea 787.91 Active confirmed 28219963 Problem Intestinal infections due to clostridium difficile 008.45 Active confirmed 707462079 Problem Elevated C-reactive protein (CRP) R79.82 Active confirmed 591595664880657 Problem Fibromyalgia M79.7 Active confirmed 5329030 05 Problem Supervision of other normal Z34.80 Ac tive confirm 969851708 Problem Obesity complicating in second trimester O99.212 Active confirmed 604227367237 ALLERGIES Allergen (clinical drug ingredient) Drug/Non Drug Allergy do cumented on EMR Reaction Allergy Type Onset Date Status Flexeril Hives Drug Allergy Active Seafood, fish Angioedema Non Drug Allergy Activ e tramadol Tramadol HCl(ND Code:[address]-32) Hives Drug Aller gy Active Geodon Paranoid Non Drug Allergy Active atenolol 100 Hives Drug Allergy Active ziprasidone Ziprasidone HCl(NDC Code:[address]-94) Hives Drug A llergy Active nortriptyline Nortriptyline HCl(NDC Code:[address]-59) Hives Dr ug Allergy Active cyclobenzaprine Cyclobenzaprine HCl(NDC Code:[address]-07) Hives Drug Allergy Active Sea Food Anaphylaxis Non Drug Allergy Active tramadol Ultram(NDC Code:[address]-07) Hives Drug Allergy Active risperidone Risperidone(NDC Code:[address]-67) Hives Drug Aller gy Active amitriptyline Amitriptyline HCl(NDC Code:[address]-24) Hives Dr ug Allergy Active gabapentin Gabapentin(NDC Code:[address]-17) Hives Drug Allergy Active Imetrex Hives Non Drug Allergy Active Rispererdol dizzy Non Drug Allergy Active ENCOUNTERS from 1980 to 2020-10-06 Encounter Location Date Provider Diagnosis [facility] [address] [place] [address] [place] [address] Oct, [facility] Positive RENÉE (antinuclear an tibody) R76.8 IMMUNIZATIONS No Information SOCIAL HISTORY Tobacco Use: [...] Information RESULTS No Results REASON FOR VISIT Un-successful venipuncture/ follow up orders MEDICAL (GENERAL) HISTORY Type Description Date Medical [...] Notes Treatment Notes Treatm ent Clinical Notes Oct, Positive RENÉE (antinuclear antibody) (ICD-10 - R7 6.8) PLAN OF TREATMENT Treatment Notes Test Name Order Date RENÉE TITER & PATTERN 2020-10-02 BETA-2 GLYCOPROTEIN 1 ANTHONY DENTON 2020-10-02 ANTI CENTROMERE ANTIBODY 2020-10-02 ANTI-HISTONE ANTIBODIES 2020-10-02 ANTI-SJOGRENS A&B ANTIBODIES 2020-10-02 ANTI-CARDIOLIPIN ANTIBODIES 2020-10-02 ANTI DOUBLE STRAND DNA ANTHONY 2020-10-02 ANTI SCLERODERMA ANTIBODIES 2020-10-02 Anti Camargo(Sm) AB 2020-10-02 Anti-U1 EVP BUSINESS DEVELOPMENT AB 2020-10-02 Next Appt Details Provider Name:Noemi Llanos, 2020-11-03 05:00:00 PM, [address] [place] [address], , [place] [place], Insurance Providers Payer Name Payer Address Payer Phone Insured Name Patient Relati onship to Insured Coverage Start Date Coverage End Date [facility] [employer] [facility] [address] [facility] [phone] CHEN PETERS self
--- OUTSIDE RECORDS SUMMARY | 2020-12-18 15:07 | CCD ---
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 Care Pricing Specialist Name Role Phone SYSTEM IN, NOT IN PROVIDER Unavailable Unavailable CAITLIN HERNANDEZ MD Unavailable Unavailable CAITLIN HERNANDEZ MD Unavailable Unavailable CAITLIN HERNANDEZ MD Unavailable Unavailable CAITLIN HERNANDEZ MD Unavailable Unavailable CAITLIN HERNANDEZ MD Unavailable Unavailable CAITLIN HERNANDEZ MD Unavailable Unavailable CAITLIN HERNANDEZ MD Unavailable Unavailable HERNANDEZ, CAITLIN MD Unavailable Unavailable HERNANDEZ, CAITLIN MD Unavailable Unavailable HERNANDEZ, CAITLIN MD Unavailable Unavailable HERNANDEZ, CAITLIN MD Unavailable Unavailable HERNANDEZ, CAITLIN MD Unavailable Unavailable HERNANDEZ, CAITLIN MD Unavailable Unavailable HERNANDEZ, CAITLIN MD Unavailable Unavailable HERNANDEZ, CAITLIN MD Unavailable Unavailable HERNANDEZ, CAITLIN MD Unavailable Unavailable HERNANDEZ, CAITLIN MD Unavailable Unavailable HERNANDEZ, CAITLIN MD Unavailable Unavailable HERNANDEZ, CAITLIN MD Unavailable Unavailable HERNANDEZ, CAITLIN MD Unavailable Unavailable HERNANDEZ, CAITLIN MD Unavailable Unavailable HERNANDEZ, CAITLIN MD Unavailable Unavailable HERNANDEZ, CAITLIN MD Unavailable Unavailable HERNANDEZ, CAITLIN MD Unavailable Unavailable HERNANDEZ, CAITLIN MD Unavailable Unavailable HERNANDEZ, CAITLIN MD Unavailable Unavailable HERNANDEZ, CAITLIN MD Unavailable Unavailable HERNANDEZ, CAITLIN MD Unavailable Unavailable HERNANDEZ, CAITLIN MD Unavailable Unavailable HERNANDEZ, CAITLIN MD Unavailable Unavailable HERNANDEZ, CAITLIN MD Unavailable Unavailable HERNANDEZ, CAITLIN MD Unavailable Unavailable HERNANDEZ, CAITLIN MD Unavailable Unavailable HERNANDEZ, CAITLIN MD Unavailable Unavailable HERNANDEZ, CAITLIN MD Unavailable Unavailable HERNANDEZ, CAITLIN MD Unavailable Unavailable HERNANDEZ, CAITLIN MD Unavailable Unavailable HERNANDEZ, CAITLIN MD Unavailable Unavailable HERNANDEZ, CAITLIN MD Unavailable Unavailable HERNANDEZ, CAITLIN MD Unavailable Unavailable HERNANDEZ, CAITLIN MD Unavailable Unavailable HERNANDEZ, CAITLIN MD Unavailable Unavailable HERNANDEZ, CAITLIN MD Unavailable Unavailable HERNANDEZ, CAITLIN MD Unavailable Unavailable HERNANDEZ, CAITLIN MD Unavailable Unavailable HERNANDEZ, CAITLIN MD Unavailable Unavailable HERNANDEZ, CAITLIN MD Unavailable Unavailable HERNANDEZ, CAITLIN MD Unavailable Unavailable HERNANDEZ, CAITLIN MD Unavailable Unavailable HERNANDEZ, CAITLIN MD Unavailable Unavailable HERNANDEZ, CAITLIN MD Unavailable Unavailable HERNANDEZ, CAITLIN MD Unavailable Unavailable HERNANDEZ, CAITLIN MD Unavailable Unavailable HERNANDEZ, CAITLIN MD Unavailable Unavailable HERNANDEZ, CAITLIN MD Unavailable Unavailable HERNANDEZ, CAITLIN MD Unavailable Unavailable HERNANDEZ, CAITLIN MD Unavailable Unavailable HERNANDEZ, CAITLIN MD Unavailable Unavailable HERNANDEZ, CAITLIN MD Unavailable Unavailable HERNANDEZ, CAITLIN MD Unavailable Unavailable HERNANDEZ, CAITLIN MD Unavailable Unavailable HERNANDEZ, CAITLIN MD Unavailable Unavailable HERNANDEZ, CAITLIN MD Unavailable Unavailable HERNANDEZ, CAITLIN MD Unavailable Unavailable HERNANDEZ, CAITLIN MD Unavailable Unavailable HERNANDEZ, CAITLIN MD Unavailable Unavailable HERNANDEZ, CAITLIN MD Unavailable Unavailable HERNANDEZ, CAITLIN MD Unavailable Unavailable HERNANDEZ, CAITLIN MD Unavailable Unavailable HERNANDEZ, CAITLIN MD Unavailable Unavailable HERNANDEZ, CAITLIN MD Unavailable Unavailable HERNANDEZ, CAITLIN MD Unavailable Unavailable HERNANDEZ, CAITLIN MD Unavailable Unavailable HERNANDEZ, CAITLIN MD Unavailable Unavailable HERNANDEZ, CAITLIN MD Unavailable Unavailable HERNANDEZ, CAITLIN MD Unavailable Unavailable HERNANDEZ, CAITLIN MD Unavailable Unavailable HERNANDEZ, CAITLIN MD Unavailable Unavailable HERNANDEZ, CAITLIN MD Unavailable Unavailable HERNANDEZ, CAITLIN MD Unavailable Unavailable HERNANDEZ, CAITLIN MD Unavailable Unavailable HERNANDEZ, CAITLIN MD Unavailable Unavailable HERNANDEZ, CAITLIN MD Unavailable Unavailable HERNANDEZ, CAITLIN MD Unavailable Unavailable HERNANDEZ, CAITLIN MD Unavailable Unavailable HERNANDEZ, CAITLIN MD Unavailable Unavailable HERNANDEZ, CAITLIN MD Unavailable Unavailable HERNANDEZ, CAITLIN MD Unavailable Unavailable HERNANDEZ, CAITLIN MD Unavailable Unavailable HERNANDEZ, CAITLIN MD Unavailable Unavailable HERNANDEZ, CAITLIN MD Unavailable Unavailable HERNANDEZ, CAITLIN MD Unavailable Unavailable HERNANDEZ, CAITLIN MD Unavailable Unavailable HERNANDEZ, CAITLIN MD Unavailable Unavailable HERNANDEZ, CAITLIN MD Unavailable Unavailable HERNANDEZ, CAITLIN MD Unavailable Unavailable HERNANDEZ, CAITLIN MD Unavailable Unavailable HERNANDEZ, CAITLIN MD Unavailable Unavailable HERNANDEZ, CAITLIN MD Unavailable Unavailable HERNANDEZ, CAITLIN MD Unavailable Unavailable HERNANDEZ, CAITLIN MD Unavailable Unavailable HERNANDEZ, CAITLIN MD Unavailable Unavailable HERNANDEZ, CAITLIN MD Unavailable Unavailable HERNANDEZ, CAITLIN MD Unavailable Unavailable HERNANDEZ, CAITLIN MD Unavailable Unavailable HERNANDEZ, CAITLIN MD Unavailable Unavailable HERNANDEZ, CAITLIN MD Unavailable Unavailable HERNANDEZ, CAITLIN MD Unavailable Unavailable HERNANDEZ, CAITLIN MD Unavailable Unavailable HERNANDEZ, CAITLIN MD Unavailable Unavailable HERNANDEZ, CAITLIN MD Unavailable Unavailable HERNANDEZ, CAITLIN MD Unavailable Unavailable HERNANDEZ, CAITLIN MD Unavailable Unavailable HERNANDEZ, CAITLIN MD Unavailable Unavailable HERNANDEZ, CAITLIN MD Unavailable Unavailable HERNANDEZ, CAITLIN MD Unavailable Unavailable HERNANDEZ, CAITLIN MD Unavailable Unavailable HERNANDEZ, CAITLIN MD Unavailable Unavailable HERNANDEZ, CAITLIN MD Unavailable Unavailable HERNANDEZ, CAITLIN MD Unavailable Unavailable HERNANDEZ, CAITLIN MD Unavailable Unavailable HERNANDEZ, CAITLIN MD Unavailable Unavailable HERNANDEZ, CAITLIN MD Unavailable Unavailable HERNANDEZ, CAITLIN MD Unavailable Unavailable HERNANDEZ, CAITLIN MD Unavailable Unavailable HERNANDEZ, CAITLIN MD Unavailable Unavailable HERNANDEZ, CAITLIN MD Unavailable Unavailable HERNANDEZ, CAITLIN MD Unavailable Unavailable HERNANDEZ, CAITLIN MD Unavailable Unavailable HERNANDEZ, CAITLIN MD Unavailable Unavailable HERNANDEZ, CAITLIN MD Unavailable Unavailable HERNANDEZ, CAITLIN MD Unavailable Unavailable HERNANDEZ, CAITLIN MD Unavailable Unavailable HERNANDEZ, CAITLIN MD Unavailable Unavailable HERNANDEZ, CAITLIN MD Unavailable Unavailable HERNANDEZ, CAITLIN MD Unavailable Unavailable HERNANDEZ, CAITLIN MD Unavailable Unavailable HERNANDEZ, CAITLIN MD Unavailable Unavailable HERNANDEZ, CAITLIN MD Unavailable Unavailable HERNANDEZ, CAITLIN MD Unavailable Unavailable HERNANDEZ, CAITLIN MD Unavailable Unavailable HERNANDEZ, CAITLIN MD Unavailable Unavailable HERNANDEZ, CAITLIN MD Unavailable Unavailable HERNANDEZ, CAITLIN MD Unavailable Unavailable HERNANDEZ, CAITLIN MD Unavailable Unavailable HERNANDEZ, CAITLIN MD Unavailable Unavailable HERNANDEZ, CAITLIN MD Unavailable Unavailable HERNANDEZ, CAITLIN MD Unavailable Unavailable HERNANDEZ, CAITLIN MD Unavailable Unavailable HERNANDEZ, CAITLIN MD Unavailable Unavailable HERNANDEZ, CAITLIN MD Unavailable Unavailable HERNANDEZ, CAITLIN MD Unavailable Unavailable HERNANDEZ, CAITLIN MD Unavailable Unavailable HERNANDEZ, CAITLIN MD Unavailable Unavailable HERNANDEZ, CAITLIN MD Unavailable Unavailable HERNANDEZ, CAITLIN MD Unavailable Unavailable HERNANDEZ, CAITLIN MD Unavailable Unavailable HERNANDEZ, CAITLIN MD Unavailable Unavailable HERNANDEZ, CAITLIN MD Unavailable Unavailable HERNANDEZ, CAITLIN MD Unavailable Unavailable HERNANDEZ, CAITLIN MD Unavailable Unavailable HERNANDEZ, CAITLIN MD Unavailable Unavailable HERNANDEZ, CAITLIN MD Unavailable Unavailable HERNANDEZ, CAITLIN MD Unavailable Unavailable HERNANDEZ, CAITLIN MD Unavailable Unavailable HERNANDEZ, CAITLIN MD Unavailable Unavailable HERNANDEZ, CAITLIN MD Unavailable Unavailable HERNANDEZ, CAITLIN MD Unavailable Unavailable HERNANDEZ, CAITLIN MD Unavailable Unavailable HERNANDEZ, CAITLIN MD Unavailable Unavailable HERNANDEZ, CAITLIN MD Unavailable Unavailable HERNANDEZ, CAITLIN MD Unavailable Unavailable HERNANDEZ, CAITLIN MD Unavailable Unavailable HERNANDEZ, CAITLIN MD Unavailable Unavailable HERNANDEZ, CAITLIN MD Unavailable Unavailable HERNANDEZ, CAITLIN MD Unavailable Unavailable HERNANDEZ, CAITLIN MD Unavailable Unavailable HERNANDEZ, CAITLIN MD Unavailable Unavailable HERNANDEZ, CAITLIN MD Unavailable Unavailable HERNANDEZ, CAITLIN MD Unavailable Unavailable HERNANDEZ, CAITLIN MD Unavailable Unavailable HERNANDEZ, CAITLIN MD Unavailable Unavailable HERNANDEZ, CAITLIN MD Unavailable Unavailable HERNANDEZ, CAITLIN MD Unavailable Unavailable HERNANDEZ, CAITLIN MD Unavailable Unavailable HERNANDEZ, CAITLIN MD Unavailable Unavailable HERNANDEZ, CAITLIN MD Unavailable Unavailable HERNANDEZ, CAITLIN MD Unavailable Unavailable HERNANDEZ, CAITLIN MD Unavailable Unavailable HERNANDEZ, CAITLIN MD Unavailable Unavailable HERNANDEZ, CAITLIN MD Unavailable Unavailable HERNANDEZ, CAITLIN MD Unavailable Unavailable HERNANDEZ, CAITLIN MD Unavailable Unavailable HERNANDEZ, CAITLIN MD Unavailable Unavailable HERNANDEZCAITLIN MD Unavailable Unavailable CAITLIN HERNANDEZ MD Unavailable Unavailable HERNANDEZCAITLIN MEEKS MD Unavailable Unavailable HERNANDEZCAITLIN MEEKS MD Unavailable Unavailable HERNANDEZCAITLIN MEEKS MD Unavailable Unavailable HERNANDEZCAITLIN MEEKS MD Unavailable Unavailable HERNANDEZCAITLIN MEEKS MD Unavailable Unavailable HERNANDEZCAITLIN MEEKS MD Unavailable Unavailable HERNANDEZCAITLIN MEEKS MD Unavailable Unavailable HERNANDEZCAITLIN MEEKS MD Unavailable Unavailable HERNANDEZCAITLIN MEEKS MD Unavailable Unavailable HERNANDEZCAITLIN MEEKS MD Unavailable Unavailable HERNANDEZCAITLIN MEEKS MD Unavailable Unavailable HERNANDEZCAITLIN MEEKS MD Unavailable Unavailable HERNANDEZCAITLIN MEEKS MD Unavailable Unavailable HERNANDEZCAITLIN MEEKS MD Unavailable Unavailable Miguel Angel, Ericka Unavailable Unavailable TalbertDean estrada MD Unavailable Unavailable [...] Unavailable Dean Talbert MD Unavailable Unavailable Dean Talbetr MD Unavailable Unavailable Dean Talbert MD Unavailable [...] Unavailable Unavailable Dean Talbert MD Unavailable Unavailable GEOFF, H EZEQUIEL SHIP ENGINEER Unavailable Unavailable GEOFF, H EZEQUIEL SHIP ENGINEER Unavailable Unavailable GEOFF, H EZEQUIEL SHIP ENGINEER Unavailable Unavailable GEOFF, H EZEQUIEL SHIP ENGINEER Unavailable Unavailable GEOFF, H EZEQUIEL SHIP ENGINEER Unavailable Unavailable GEOFF, H EZEQUIEL SHIP ENGINEER Unavailable Unavailable GEOFF, H EZEQUIEL SHIP ENGINEER Unavailable Unavailable GEOFF, H EZEQUIEL SHIP ENGINEER Unavailable Unavailable GEOFF, H EZEQUIEL SHIP ENGINEER Unavailable Unavailable Mirtha Manley MD Unavailable Unavailable [...] Manleytech Unavailable Unavailable Idris Manleyjtech Unavailable Unavailable Aime Manleytech Unavailable Unavailable Aime Manleytech Unavailable Unavailable Slezka, Vojtech MD Unavailable Unavailable [...] Unavailable Unavailable Slezka, Vojtech MD Unavailable Unavailable Re-disclosure Warning The records [...] is protected by Article 27-F of the [facility] Public Health law. If you continue you may have access to information: Regarding HIV / AIDS; Provided by facilities licensed or operated by the [facility] Office of Mental Health; or Provided by the [facility] Office for People With Developmental Disabilities. If such information is present, then the following [facility] mandated warning applies: This information has [...] law may result in a fine or custodial sentence or both. A general authorization for the release of medical or other information is NOT sufficient authorization for further disc losure. Allergies and Adverse Reactions Type Description Substance Reaction Status Data Source(s ) Propensity to adverse reactions to substance nkda 24 HR Bupropion Hydrochloride 150 MG Extended Release Oral Tablet Active [facility] ([facility]) Propensity to adverse reactions ULTRAM ULTRAM [facility] Propensity to adverse reactions NEURONTIN NEURONTIN [facility] Food allergy SEAFOOD SEAFOOD SWOLLEN THROAT [facility] Drug allergy ATENOLOL ATENOLOL [facility] Drug allergy AMITRIPTYLINE AMITRIPTYLINE ANAPHYLAXIS VOMITING [facility] Drug allergy NORTRIPTYLINE NORTRIPTYLINE [facility] Family History Family Member Name Family Member Gender Family Member Status Date o f Status Description Data Source(s) Unknown Male Problem [facility] ([facility]) Unknown Male Problem MEDENT ([facility], ) Encounters Encounter Providers Location Date Indications Data Source(s ) Extended Individual Psychotherapy - 45 min Attender: Ericka Mcguireus [facility] 11/17/2020 02:30:00 AM EDT - 11/17/2020 02:30:00 AM EDT [facility] ([facility]) Attender: Ericka Miguel Angel 11/17/2020 12:00:00 AM EDT [facility] ([facility]) [place] [address] [address] 11/16/2020 12:00:00 AM EDT [facility] [place] [address] [address] 11/03/2020 12:00:00 AM EDT [facility]1 [facility] [place] [address] [address] 10/26/2020 12:00:00 AM EDT eCW1 ([facility]) Outpatient Attender: Mirtha RIVERAeferrer: CAITLIN Lenz MD [email or web address] 10/13/2020 09:32:45 AM EDT - 10/13/2020 10:39:59 AM EDT [facility] [place]patient [address] [address] 10/02/2020 12:00:00 AM EDT eCW1 ([facility]) [place] [address] [address] 10/02/2020 12:00:00 AM EDT eCW1 ([facility]) [place] [address] [address] 09/28/2020 12:00:00 AM EDT eCW1 ([facility]) Extended Individual Psychotherapy - 45 min Attender: Ericka Michelle [facility] 09/18/2020 02:00:00 AM EDT - 09/18/2020 02:00:00 AM EDT [facility] ([facility]) Attender: Ericka Michelle 09/18/2020 12:00:00 AM EDT [facility] ([facility]) Attender: Ericka Michelle 08/17/2020 12:00:00 AM EDT [facility] ([facility]) Extended Individual Psychotherapy - 45 min Attender: Ericka Michelle [facility] 08/16/2020 10:00:00 AM EDT - 08/16/2020 10:00:00 AM EDT [facility] ([facility]) Extended Individual Psychotherapy - 45 min Attender: Ericka Michelle [facility] 07/25/2020 10:00:00 AM EDT - 07/25/2020 10:00:00 AM EDT [facility] ([facility]) Attender: Ericka Michelle 07/25/2020 12:00:00 AM EDT [facility] ([facility]) Extended Individual Psychotherapy - 45 min Attender: Ericka Michelle [facility] 07/07/2020 02:45:00 AM EDT - 07/07/2020 02:45:00 AM EDT [facility] ([facility]) Attender: Ericka Michelle 07/07/2020 12:00:00 AM EDT [facility] ([facility]) Outpatient Attender: Dean Talbert MD [facility] 07/06/2020 10:40:00 AM EDT [facility] ([facility]) Outpatient Attender: CAITLIN HERNANDEZ MDConsultant: CAITLIN Lenz MD 06/29/2020 02:34:00 PM EDT - 06/29/2020 02:34:00 PM EDT [facility] ([facility] ESTOB) [facility] Est OB [address] [place] [address] 06/28/2020 12:00:00 AM EDT eCW1 ([facility]) Extended Individual Psychotherapy - 45 min Attender: Ericka Michelle [facility] 06/20/2020 03:15:00 AM EDT - 06/20/2020 03:15:00 AM EDT [facility] ([facility]) Attender: Ericka Michelle 06/20/2020 12:00:00 AM EDT [facility] ([facility]) Outpatient Attender: CAITLIN HERNANDEZ MD Family Practice 06/15/2020 0 3:00:00 PM EDT MED[facility] ([facility]) Outpatient Attender: CAITLIN HERNANDEZ MDConsultant: CAITLIN Lenz MD 06/15/2020 02:04:00 PM EDT - 06/15/2020 02:04:00 PM EDT [facility] Outpatient Attender: EZEQUIEL BAIG NP [facility] Eliezer lenz 06/01/2020 02:30:00 AM EDT - 06/01/2020 02:30:00 AM EDT [facility] ([facility]) Attender: EZEQUIEL BAIG NP 06/01/2020 12:00:00 AM EDT [facility] ([facility]) Extended Individual Psychotherapy - 45 min [facility] 05/24/[facility] 02:00:00 AM EDT - 05/24/2020 02:00:00 AM EDT [facility] ([facility]) Attender: Ericka Michelle 05/24/2020 12:00:00 AM EDT [facility] ([facility]) Extended Individual Psychotherapy - 45 min Attender: Ericka Miguel Angel [facility] 05/09/2020 02:00:00 AM EST - 05/09/2020 02:00:00 AM EST [facility] ([facility]) Attender: Ericka Michelle 05/09/2020 12:00:00 AM EST [facility] ([facility]) Outpatient Attender: EZEQUIEL BAIG NP [facility] Eliezer lenz 04/27/2020 11:00:00 AM EST - 04/27/2020 11:00:00 AM EST [facility] ([facility]) ( ESTOB) enter Est OB [address] [place] [address] 04/27/2020 12:00:00 AM EST eCW1 ([facility]) Attender: EZEQUIEL BAIG NP 04/27/2020 12:00:00 AM EST [facility] ([facility]) Extended Individual Psychotherapy - 45 min Attender: Ericka Miguel Angel [facility] 04/25/2020 10:00:00 AM EST - 04/25/2020 10:00:00 AM EST [facility] ([facility]) Attender: Ericka Michelle 04/25/2020 12:00:00 AM EST [facility] ([facility]) Extended Individual Psychotherapy - 45 min Attender: Ericka Michelle [facility] 04/11/2020 11:00:00 AM EST - 04/11/2020 11:00:00 AM EST [facility] ([facility]) Attender: Ericka Michelle 04/11/2020 12:00:00 AM EST [facility] ([facility]) ( ESTOB) [facility] Est OB [address] [place] [address] 04/04/2020 12:00:00 AM EST eCW1 ([facility]) ( COB) [facility] OB [address] [place] [address] 03/31/2020 12:00:00 AM EST eCW1 ([facility]) Extended Individual Psychotherapy - 45 min Attender: Ericka Michelle [facility] 03/24/2020 02:00:00 AM EST - 03/24/2020 02:00:00 AM EST [facility] ([facility]) Attender: Ericka Michelle 03/24/2020 12:00:00 AM EST [facility] ([facility]) ( ESTOB) [facility] Est OB [address] [place] [address] 03/23/2020 12:00:00 AM EST eCW1 ([facility]) Outpatient Attender: EZEQUIEL BAIG NP [facility] delfin 03/21/2020 11:00:00 AM EST - 03/21/2020 11:00:00 AM EST [facility] ([facility]) Unknown [address] [address] 03/21/2020 12:00:00 AM EST eCW1 ([facility]) Attender: EZEQUIEL BAIG NP 03/21/2020 12:00:00 AM EST [facility] ([facility]) Extended Individual Psychotherapy - 45 min Attender: Ericka Michelle [facility] 03/17/2020 11:00:00 AM EST - 03/17/2020 11:00:00 AM EST [facility] Att[facility]: Ericka Michelle 03/17/2020 12:00:00 AM EST [facility] ([facility]) ( ESTOB) [facility] Est OB [address] [place] [address] 03/16/2020 12:00:00 AM EST eCW1 ([facility]) [place] [address] [address] 03/10/2020 12:00:00 AM EST eCW1 ([facility]) ( ESTOB) [facility] Est OB [address] [place] [address] 03/08/2020 12:00:00 AM EST eCW1 ([facility]) Extended Individual Psychotherapy - 45 min Attender: Ericka Michelle [facility] 03/06/2020 01:00:00 AM EST - 03/06/2020 01:00:00 AM EST [facility] ([facility]) Attender: Ericka Michelle 03/06/2020 12:00:00 AM EST [facility] ([facility]) Outpatient Referrer: PROVIDER SYSTEM IN 03/02/2020 1 0:20:00 AM EST shingles with occular involvement [facility] shingles with occular involvement [place] [address] [address] 02/28/2020 12:00:00 AM EST eCW1 ([facility]) ( [place]) [facility] Nurse Visit [address] [place] [address] 02/28/2020 12:00:00 AM EST eCW1 ([facility]) ( ESTOB) enter Est OB [address] [place] [address] 02/21/2020 12:00:00 AM EST eCW1 ([facility]) Extended Individual Psychotherapy - 45 min Attender: Ericka Michelle [facility] 02/11/2020 10:00:00 AM EST - 02/11/2020 10:00:00 AM EST [facility] ([facility]) Attender: Ericka Michelle 02/11/2020 12:00:00 AM EST [facility] ([facility]) Outpatient Attender: EZEQUIEL BAIG NP [facility] Eliezer lenz 01/25/2020 10:00:00 AM EST - 01/25/2020 10:00:00 AM EST [facility] ([facility]) Extended Individual Psychotherapy - 45 min Att[facility]: [facility] 01/25/2020 09:00:00 AM EST - 01/25/2020 09:00:00 AM EST [facility] ([facility]) Attender: EZEQUIEL BAIG NP 01/25/2020 12:00:00 AM EST [facility] ([facility]) Attender: Ericka Michelle 01/25/2020 12:00:00 AM EST [facility] ([facility]) ( ESTOB) [facility] Est OB [address] [place] [address] 01/24/2020 12:00:00 AM EST eCW1 ([facility]) Unknown [address] [facility] [address] 01/21/2020 12:00:00 AM EST eCW1 ([facility]) Extended Individual Psychotherapy - 45 min Attender: Ericka Michelle [facility] 01/10/2020 10:00:00 AM EST - 01/10/2020 10:00:00 AM EST [facility] ([facility]) Attender: Ericka Michelle 01/10/2020 12:00:00 AM EST [facility] ([facility]) ( ESTOB) [facility] Est OB [address] [place] [address] 01/07/2020 12:00:00 AM EST eCW1 ([facility]) Outpatient Attender: EZEQUIEL BAIG NP [facility] Eliezer lenz 12/30/2019 10:30:00 AM EDT - 12/30/2019 10:30:00 AM EDT [facility] ([facility]) Attender: EZEQUIEL BAIG NP 12/30/2019 12:00:00 AM EDT [facility] ([facility]) Brief Individual Psychotherapy - 30 min Attender: Ericka smith [facility] 12/16/2019 11:00:00 AM EDT - 12/16/2019 11:00:00 AM EDT [facility] ([facility]) Attender: Ericka Mcguireus 12/16/2019 12:00:00 AM EDT [facility] ( ESTOB) enter Est OB [address] [place] [address] 12/08/2019 12:00:00 AM EDT eCW1 ([facility]) Outpatient Attender: EZEQUIEL BAIG NP [facility] Eliezer lenz 12/02/2019 11:15:00 AM EDT - 12/02/2019 11:15:00 AM EDT [facility] ([facility]) Attender: EZEQUIEL BAIG NP 12/02/2019 12:00:00 AM EDT [facility] ([facility]) Extended Individual Psychotherapy - 45 min Attender: Ericka Michelle [facility] 11/30/2019 11:00:00 AM EDT - 11/30/2019 11:00:00 AM EDT [facility] ([facility]) Attender: Ericka Miguel Angel 11/30/2019 12:00:00 AM EDT [facility] ([facility]) Outpatient Attender: Mirtha Manley MDReferrer: CAITLIN Lenz MD [email or web address] 11/11/2019 12:00:00 AM EDT [facility] Extended Individual Psychotherapy - 45 min [facility] 11:00:00 AM EDT - 11/09/2019 11:00:00 AM EDT [facility] ([facility]) Attender: Ericka Michelle 11/09/2019 12:00:00 AM EDT [facility] ([facility]) Outpatient Attender: EZEQUIEL BAIG NP [facility] Eliezer lenz 11/04/2019 09:30:00 AM EDT - 11/04/2019 09:30:00 AM EDT [facility] ([facility]) Attender: EZEQUIEL BAIG NP 11/04/2019 12:00:00 AM EDT [facility] ([facility]) Functional Status Immunizations Vaccine Date Status Description Data Source(s) COVID-19 VACCINE Mayra 07/24/2020 12:00:00 AM EDT completed NYSIIS Vaccine Series Complete: YESThis Data wa s Submitted to [facility] Via [employer]. Medications Medication Brand Name Start Date Product Form Dose Route Admi nistrative Instructions Pharmacy Instructions Status Indications Reaction Description Data Source(s) Aimovig 140 MG/ML SOAJ [id number] 09/16/2020 12:00:00 AM EDT active INJECT 140MG UNDER THE SKIN ONCE A MONTH [facility] pregabalin 75 MG Oral Capsule pregabalin (LYRICA) 75 M G capsule pregabalin (LYRICA) 75 MG capsule 08/18/2020 12:00:00 AM EDT active TAKE ONE CAPSULE BY MOUTH TWO TIMES A DAY MAXIMUM DAILY DOSE 2 CAPS [facility] Escitalopram 10 MG Oral Tablet [Lexapro] Lexapro 07/06/2020 12 :00:00 AM EDT 10 mg by mouth completed <td ID="Me dicationRxNorm_1">449167</td><td ID="MedicationMedication_1">Lexapro</td><td ID="MedicationRoute_1">by mouth</td><td ID="MedicationRouteConcept_1">G93167</td><td ID="MedicationStartDate_1">07/06/2020</td><td ID="MedicationStopDate_1">09/04/2020</td><td ID="MedicationDosageFrequency_1">once a day</td><td ID="MedicationDuration_1">30</td><td ID="MedicationFormulaStrength_1">10 mg</td><td ID="MedicationDosageForm_1">tablet</td><td ID="MedicationDosageFormCode_1"></td><td ID="MedicationDosageDescription_1"></td><td ID="MedicationMedicationId_1">[id number]</td><td ID="MedicationAccount_1">[id number]</td><td ID="MedicationNpid_1">[id number]</td><td ID="MedicationAuthorFirstName_1">Ezequiel</td><td ID="MedicationAuthorLastName_1">Geoff</td><td ID="MedicationTaxonomyCode_1">[id number]</td><td ID="MedicationTaxonomyDesc_1">Nurse Practitioner</td><td ID="MedicationPhoneNumber_1">[phone]</td> [facility] ([facility]) Aimovig Aimovig 07/06/2020 12:00:00 AM EDT SUBCUTANEOUS active [facility] ([facility]) Ketorolac (Toradol) Inj 30MG/ML 06/15/2020 12:00:00 AM EDT completed [facility] ([facility]) Medication administered onsite Escitalopram 5 MG Oral Tablet [Lexapro] Lexapro 05/04/2020 12: 00:00 AM EST 5 mg by mouth completed <td ID="Me dicationRxNorm_2">[id number]</td><td ID="MedicationMedication_2">Lexapro</td><td ID="MedicationRoute_2">by mouth</td><td ID="MedicationRouteConcept_2">H36859</td><td ID="MedicationStartDate_2">05/04/2020</td><td ID="MedicationStopDate_2">06/03/2020</td><td ID="MedicationDosageFrequency_2">once a day</td><td ID="MedicationDuration_2">30</td><td ID="MedicationFormulaStrength_2">5 mg</td><td ID="MedicationDosageForm_2">tablet</td><td ID="MedicationDosageFormCode_2"></td><td ID="MedicationDosageDescription_2"></td><td ID="MedicationMedicationId_2">[id number]</td><td ID="MedicationAccount_2">[id number]</td><td ID="MedicationNpid_2">[id number]</td><td ID="MedicationAuthorFirstName_2">Ezequiel</td><td ID="MedicationAuthorLastName_2">Geoff</td><td ID="MedicationTaxonomyCode_2">[id number]</td><td ID="MedicationTaxonomyDesc_2">Nurse Practitioner</td><td ID="MedicationPhoneNumber_2">[phone]</td> [facility] ([facility]) valacyclovir 500 MG Oral Tablet [Valtrex] Valtrex 500 MG Marisabel trex 500 MG 04/27/2020 12:00:00 AM EST 1.0 {tablet} suspended Valtrex 500 MG eCW1 ([facility]) valacyclovir 500 MG Oral Tablet [Valtrex] Valtrex 500 MG Marisabel trex 500 MG 04/27/2020 12:00:00 AM EST 1.0 {tablet} active Valtrex 500 MG eCW1 ([facility]) valacyclovir 500 MG Oral Tablet [Valtrex] Valtrex 500 MG Marisabel trex 500 MG 04/27/2020 12:00:00 AM EST 1.0 {tablet} suspended Valtrex 500 MG eCW1 ([facility]) valacyclovir 500 MG Oral Tablet [Valtrex] Valtrex 500 MG Marisabel trex 500 MG 04/27/2020 12:00:00 AM EST 1.0 {tablet} active Valtrex 500 MG eCW1 ([facility]) valacyclovir 500 MG Oral Tablet [Valtrex] Valtrex 500 MG Marisabel trex 500 MG 04/27/2020 12:00:00 AM EST 1.0 {tablet} suspended Valtrex 500 MG eCW1 ([facility]) valacyclovir 500 MG Oral Tablet [Valtrex] Valtrex 500 MG Marisabel trex 500 MG 04/27/2020 12:00:00 AM EST 1.0 {tablet} suspended Valtrex 500 MG eCW1 ([facility]) valacyclovir 500 MG Oral Tablet [Valtrex] Valtrex 500 MG Marisabel trex 500 MG 04/27/2020 12:00:00 AM EST 1.0 {tablet} suspended Valtrex 500 MG eCW1 ([facility]) valacyclovir 500 MG Oral Tablet [Valtrex] Valtrex 500 MG Marisabel trex 500 MG 04/27/2020 12:00:00 AM EST 1.0 {tablet} suspended Valtrex 500 MG eCW1 ([facility]) valacyclovir 500 MG Oral Tablet [Valtrex] Valtrex 500 MG Marisabel trex 500 MG 04/27/2020 12:00:00 AM EST 1.0 {tablet} suspended Valtrex 500 MG eCW1 ([facility]) Sumatriptan 100 MG Oral Tablet Sumatriptan Succinate 1 00 MG Sumatriptan Succinate 100 MG 04/04/2020 12:00:00 AM EST a ctive Sumatriptan Succinate 100 MG eCW1 ([facility]) Metronidazole 500 MG Oral Tablet Metronidazole 500 MG 2020 12:00:00 AM EST 1.0 {tablet} active Metronidazo le 500 MG eCW1 ([facility]) Metronidazole 500 MG Oral Tablet Metronidazole 500 MG 2020 12:00:00 AM EST 1.0 {tablet} suspended Metronid azole 500 MG eCW1 ([facility]) Metronidazole 500 MG Oral Tablet Metronidazole 500 MG 2020 12:00:00 AM EST 1.0 {tablet} active Metronidazo le 500 MG eCW1 ([facility]) Metronidazole 500 MG Oral Tablet Metronidazole 500 MG 2020 12:00:00 AM EST 1.0 {tablet} active Metronidazo le 500 MG eCW1 ([facility]) Metronidazole 500 MG Oral Tablet Metronidazole 500 MG 2020 12:00:00 AM EST 1.0 {tablet} suspended Metronid azole 500 MG eCW1 ([facility]) Acetaminophen 325 MG / butalbital 50 MG / Caffeine 40 MG Oral Capsule [Esgic] Esgic 50-325-40 MG [facility] 50-325-40 MG 02/28/2020 12:00:00 AM EST active Esgic 50-325-40 MG eCW1 ([facility]) Acetaminophen 325 MG / butalbital 50 MG / Caffeine 40 MG Oral Capsule [Esgic] Esgic 50-325-40 MG E[facility]ic 50-325-40 MG 02/28/2020 12:00:00 AM EST active Esgic 50-325-40 MG eCW1 ([facility]) Acetaminophen 325 MG / butalbital 50 MG / Caffeine 40 MG Oral Capsule [Esgic] Esgic 50-325-40 MG Esgic 50-325-40 MG 02/28/2020 12:00:00 AM EST active Esgic 50-325-40 MG eCW1 ([facility]) Acetaminophen 325 MG / butalbital 50 MG / Caffeine 40 MG Oral Capsule [Esgic] Esgic 50-325-40 MG Esgic 50-325-40 MG 02/28/2020 12:00:00 AM EST active Esgic 50-325-40 MG eCW1 ([facility]) Acetaminophen 325 MG / butalbital 50 MG / Caffeine 40 MG Oral Capsule [Esgic] Esgic 50-325-40 MG E[facility]ic 50-325-40 MG 02/28/2020 12:00:00 AM EST active Esgic 50-325-40 MG eCW1 ([facility]) Acetaminophen 325 MG / butalbital 50 MG / Caffeine 40 MG Oral Capsule [Esgic] Esgic 50-325-40 MG E[facility]ic 50-325-40 MG 02/28/2020 12:00:00 AM EST active Esgic 50-325-40 MG eCW1 ([facility]) Acetaminophen 325 MG / butalbital 50 MG / Caffeine 40 MG Oral Capsule [Esgic] Esgic 50-325-40 MG [facility] 50-325-40 MG 02/28/2020 12:00:00 AM EST active Esgic 50-325-40 MG eCW1 ([facility]) Amoxicillin 875 MG Oral Tablet amoxicillin (AMOXIL) 87 5 MG tablet amoxicillin (AMOXIL) 875 MG tablet 11/06/2019 12:00:00 AM EDT aborted TAKE ONE TABLET BY MOUTH EVERY TWELVE HOURS FOR 10 DAYS [facility] Cholecalciferol 1000 UNT Oral Tablet cho lecalciferol (VITAMIN D3) 25 MCG (1000 UT) tablet cholecalciferol (VITAMIN D3) 25 MCG (1000 UT) tablet 0 10/21/2019 12:00:00 AM EDT 1000 U Oral active Take 1,0 00 Units by mouth daily [facility] Aspirin 81 MG Delayed Release Oral Tablet aspirin EC 8 1 MG EC tablet aspirin EC 81 MG EC tablet 81 mg Oral aborted Take 81 mg by mouth daily [facility] Vit-Fe Fumarate-FA ( 1+1 PO) drug or medication Oral aborted Take by mouth [facility] Insurance Providers Payer name Policy type / Coverage type Policy ID Covered constitution party ID Covered constitution party's relationship to banda Policy Banda Plan Information [facility] Comm Plan Medicaid F [id number] SELF [id number] Managed Care - Pending Sale To [facility] P [id number] S [id number] Medicaid S [id number] S [id number] [facility] PLAN [facility] [id number] SP [id number] [facility] Care - Pending Sale To [facility] P [id number] S [id number] Medicaid S [id number] S [id number] [facility] I [id number] Self [id number] [facility] I [id number] Self [id number] [facility] I [id number] Self [id number] MEDICAID M [id number] Self [id number] [facility] [id number] SP [id number] [facility] [id number] SP [id number] Medicaid S [id number] S [id number] [facility] [id number] SP [id number] Managed Care - Community Plan [facility] P [id number] S [id number] [facility] [id number] SP [id number] [facility] PLAN [facility] [id number] SP [id number] [facility] COMMUNITY PLAN MCDHMO [id number] SP [id number] [facility] COMMUNITY PLAN MCDHMO [id number] SP [id number] [facility] Health Maintenance Organization (HMO) [id number] Self [id number] [facility] COMMUNITY PLAN MCDHMO [id number] SP [id number] Managed Care - [facility] Community Plan P [id number] S [id number] [facility] COMMUNITY PLAN MCDHMO [id number] SP [id number] [facility] COMMUNITY PLAN MCDHMO [id number] SP [id number] Medicaid S [id number] S [id number] Managed Care - [facility] Community Plan P [id number] S [id number] [facility] MEDICAID [id number] Managed Care - [facility] Community Plan P [id number] S [id number] [facility] MEDICAID [id number] Paula [id number] [facility] COMMUNITY PLAN XIX [id number] 18 [id number] [facility] Communty Plan Medicaid [id number] Self [id number] [facility] Community Plan Commercial [id number] Self [id number] Excell BCBS Medigap Part B [id number] Self [id number] [facility] [place] [id number] 18 [id number] [facility] Kelayres Plan Medigap Part B [id number] Self [id number] [facility] Community Plan Commercial [id number] Self [id number] [facility] [place]MPIRE PLAN [id number] 18 [id number] [facility] [id number] 18 [id number] [facility](MCAID) O [id number] S [id number] [facility] Part B [id number] Self [id number] [facility] Commercial [id number] Self [id number] [facility] [place] [id number] 18 [id number] [facility] [id number] SP [id number] [facility] Part B [id number] Self [id number] [facility] Commercial [id number] Self [id number] [facility] O [id number] S [id number] HC AMERICHOICE XIX -HMO [id number] [id number] [facility] O [id number] S [id number] MEDICAID - CLINIC [id number] UN[facility] AMERICHOICE O [id number] 18 [id number] MEDICAID-O/P [id number] X [facility] [id number] Self [facility] P UNAVAILABLE S UNAVAILA BLE Medicaid S [id number] S [id number] [employer] [place] PLAN [id number] SP [id number] [facility] COMM[facility]ITY [facility] [id number] SP [id number] HMO BLUE [id number] SP [id number] [place] [id number] SP [id number] [facility] COMMUNTY PLAN [id number] 18 [id number] [facility] COMMUNITY PLAN XIX [id number] 18 [id number] [facility] O [id number] S [id number] [facility] COMMUNITY PLAN [id number] 18 [id number] UNHC AMERICHOICE XIX -HMO [id number] 18 [id number] UNHC AMERICHOICE XIX -HMO [id number] UNHC AMERICHOICE XIX -HMO [id number] 18 [id number] [facility] COMMUNITY PLAN XIX [id number] 18 [id number] [facility] COMMUNTY PLAN [id number] 18 [id number] [facility] [id number] S [id number] [facility] Community Plan Commercial [id number] Self [id number] [facility] Communty Plan Medicaid [id number] Self [id number] [facility] Community Plan Commercial [id number] Self [id number] [facility] Communty Plan Medicaid [id number] Self [id number] [facility] Community Plan Commercial [id number] Self [id number] [facility] Communty Plan Medicaid [id number] Self [id number] [facility] Community Plan Commercial [id number] Self [id number] [facility] Communty Plan Medicaid [id number] Self [id number] [facility] Communty Plan Medicaid [id number] Self [id number] [facility] Community Plan Commercial [id number] Self [id number] [facility] Communty Plan Medicaid [id number] Self [id number] [facility] Community Plan Commercial [id number] Self [id number] [facility] HEA [id number] S 1 [id number] UNAVAILABLE UNAVAILA BLE [facility] HEA [id number] S 1 [id number] [facility] Community Plan Commercial [id number] Self [id number] [facility] Communty Plan Medicaid [id number] Self [id number] Problems, Conditions, and Diagnoses Code Display Name Description Problem Type Effective Dates Data Source(s) R55 Syncope and collapse Syncope and collapse Diagnosis 10/13/2020 09:32:45 AM EDT [facility] E66.01 Morbid (severe) obesity due to excess ca lories Morbid (severe) obesity due to excess ca Diagnosis 10/13/2020 09:32:45 AM EDT [facility] R07.89 Other chest pain Other chest pain Diagnosis 10/13/2020 09 :32:45 AM EDT [facility] Z1331 Encounter for screening for depression E ncounter for screening for depression Diagnosis 06/15/2020 02:04:00 PM EDT [facility] M545 Low back pain Low back pain Diagnosis 06/15/2020 02:04:00 PM EDT [facility] M7071 Other bursitis of hip, right hip Other bursitis of hip, right hip Diagnosis 06/15/2020 02:04:00 PM EDT [facility] shingles with occular involvement shingles with occula r involvement Diagnosis 03/02/2020 10:20:00 AM [facility] R07.9 Chest pain, unspecified Chest pain, unspecified Diagno sis 11/11/2019 10:34:12 AM EDT [facility] F14.20 Cocaine dependence, uncomplicated Stimul ant Use Disorder. Severe: Cocaine Condition 11/17/2020 12:00:00 AM EDT [facility] ([facility]) F41.1 Generalized anxiety disorder Generalized Anxiety Disor milena Condition 11/17/2020 12:00:00 AM EDT [facility] ([facility]) F43.12 Post-traumatic stress disorder, chronic Post-traumatic stress disorder, chronic Condition 11/17/2020 12:00:00 AM EDT [facility] ([facility]) M35.9 [id number] Undifferentiated connective tissue diseas e Problem 11/03/2020 12:00:00 AM EDT eCW1 ([facility]) R55 Syncope Syncope [id number] 10/13/2020 12:00:00 AM ED T [facility] Z68.41 Body mass index 40+ - severely obese Bod y mass index (BMI) 40.0-44.9, adult Problem 03/31/2020 12:00:00 AM EST eCW1 ([facility]) O99.213 Obesity complicating , third tr imester Obesity complicating in third trimester Problem 03/23/2020 12:00:00 AM EST eCW1 ([facility]) O99.212 [id number] Obesity complicating in second trimester Problem 12/07/2019 12:00:00 AM EDT eCW1 ([facility]) Z34.80 care Supervision of other normal P [place] 12/07/2019 12:00:00 AM EDT eCW1 ([facility]) R07.89 Other chest pain Other chest pain [id number] 11/11/2019 12 :00:00 AM EDT [facility] Surgeries/Procedures Procedure Description Date Indications Data Source(s) Extended Individual Psychotherapy - 45 min 11/17/2020 12:00:00 AM EDT - 11/17/2020 12:00:00 AM EDT [facility] ([facility]) Extended Individual Psychotherapy - 45 min 12:00:00 AM EDT [facility] ([facility]) ECG ROUTINE ECG W/LEAST 12 LDS W/I&R <td>POCT AMB EKG</td><td>Routine</td><td>10/13/2020 10:22 AM EDT</td><td> Other chest pain Syncope, unspecified syncope type</td><td> </td> 10/13/2020 10:22:00 AM EDT Syncope, unspecified syncope typeOther chest pain [facility] Syncope, unspecified syncope type Other chest pain Extended Individual Psychotherapy - 45 min 09/18/2020 12:00:00 AM EDT - 09/18/2020 12:00:00 AM EDT [facility] ([facility]) Extended Individual Psychotherapy - 45 min 12:00:00 AM EDT [facility] ([facility]) Extended Individual Psychotherapy - 45 min 08/17/2020 12:00:00 AM EDT - 08/17/2020 12:00:00 AM EDT [facility] ([facility]) Extended Individual Psychotherapy - 45 min 12:00:00 AM EDT [facility] ([facility]) Extended Individual Psychotherapy - 45 min 07/25/2020 12:00:00 AM EDT - 07/25/2020 12:00:00 AM EDT [facility] ([facility]) Extended Individual Psychotherapy - 45 min 12:00:00 AM EDT [facility] ([facility]) Extended Individual Psychotherapy - 45 min 07/07/2020 12:00:00 AM EDT - 07/07/2020 12:00:00 AM EDT [facility] ([facility]) Extended Individual Psychotherapy - 45 min 12:00:00 AM EDT [facility] ([facility]) OFFICE OUTPATIENT VISIT 15 MINUTES 06/29/2020 12:00:00 AM EDT [facility] ([facility]) Extended Individual Psychotherapy - 45 min 06/20/2020 12:00:00 AM EDT - 06/20/2020 12:00:00 AM EDT [facility] ([facility]) Extended Individual Psychotherapy - 45 min 12:00:00 AM EDT [facility] ([facility]) BLOOD COUNT COMPLETE AUTO&AUTO DIFRNTL WBC COUNT <td>C BC AND DIFFERENTIAL</td><td>Routine</td><td>06/19/2020</td><td></td><td> </td> 06/19/2020 12:00:00 AM EDT [facility] BASIC METABOLIC PANEL CALCIUM TOTAL <td>BASIC METABOLI C PANEL</td><td>Routine</td><td>06/19/2020</td><td></td><td> </td> 06/19/2020 12:00:00 AM EDT [facility] Brief Emotional/Behav Assessment W/ Scoring Doc Per Standard Inst 06/15/2020 12:00:00 AM EDT [facility] ([facility]) OFFICE OUTPATIENT VISIT 15 MINUTES 06/15/2020 12:00:00 AM EDT [facility] ([facility]) MHC Telemed E/M Lvl 3--Est pt 06/01/2020 12:00:00 AM EDT - 06/01/2020 12:00:00 AM EDT [facility] ([facility]) MHC Telemed E/M Lvl 3--Est pt 06/01/2020 12:00:00 AM E DT [facility] ([facility]) Extended Individual Psychotherapy - 45 min 05/24/2020 12:00:00 AM EDT - 05/24/2020 12:00:00 AM EDT [facility] ([facility]) Extended Individual Psychotherapy - 45 min 12:00:00 AM EDT [facility] ([facility]) Extended Individual Psychotherapy - 45 min 05/09/2020 12:00:00 AM EST - 05/09/2020 12:00:00 AM EST [facility] ([facility]) Extended Individual Psychotherapy - 45 min 12:00:00 AM EST [facility] ([facility]) OFFICE OUTPATIENT VISIT 15 MINUTES 04/27 12:00:00 AM EST - 04/27/2020 12:00:00 AM EST [facility] ([facility]) OFFICE OUTPATIENT VISIT 15 MINUTES 04/27/2020 12:00:00 AM EST [facility] ([facility]) Extended Individual Psychotherapy - 45 min 04/25/2020 12:00:00 AM EST - 04/25/2020 12:00:00 AM EST [facility] ([facility]) Extended Individual Psychotherapy - 45 min 12:00:00 AM EST [facility] ([facility]) Extended Individual Psychotherapy - 45 min 04/11/2020 12:00:00 AM EST - 04/11/2020 12:00:00 AM EST [facility] ([facility]) Extended Individual Psychotherapy - 45 min 12:00:00 AM EST [facility] ([facility]) NONSTRESS TEST 03/31/2020 12:00:00 AM EST eCW1 ([facility]) Extended Individual Psychotherapy - 45 min 03/24/2020 12:00:00 AM EST - 03/24/2020 12:00:00 AM EST [facility] ([facility]) Extended Individual Psychotherapy - 45 min 12:00:00 AM EST [facility] ([facility]) NONSTRESS TEST 03/23/2020 12:00:00 AM EST eCW1 ([facility]) MHC Telemed E/M Lvl 3--Est pt 03/21/2020 12:00:00 AM EST - 03/21/2020 12:00:00 AM EST [facility] ([facility]) Psychotherapy ADD ON - 30 Minutes 03/21/2020 12:00:00 AM EST [facility] ([facility]) MHC Telemed E/M Lvl 3--Est pt 03/21/2020 12:00:[address] [facility] ([facility]) Extended Individual Psychotherapy - 45 min 03/17/2020 12:00:00 AM EST - 03/17/2020 12:00:00 AM EST [facility] ([facility]) Extended Individual Psychotherapy - 45 min 12:00:00 AM EST [facility] ([facility]) NONSTRESS TEST 03/16/2020 12:00:00 AM EST eCW1 ([facility]) NONSTRESS TEST 03/08/2020 12:00:00 AM EST eCW1 ([facility]) Extended Individual Psychotherapy - 45 min 03/06/2020 12:00:00 AM EST - 03/06/2020 12:00:00 AM EST [facility] ([facility]) Extended Individual Psychotherapy - 45 min 12:00:00 AM EST [facility] ([facility]) Nurse Visit Blood Pressure Check 02/28/2020 12:00:00 A M EST eCW1 ([facility]) Extended Individual Psychotherapy - 45 min 02/11/2020 12:00:00 AM EST - 02/11/2020 12:00:00 AM EST [facility] ([facility]) Extended Individual Psychotherapy - 45 min 0 12:00:00 AM EST [facility] ([facility]) OFFICE OUTPATIENT VISIT 15 MINUTES 01/24 12:00:00 AM EST - 01/25/2020 12:00:00 AM EST [facility] ([facility]) OFFICE OUTPATIENT VISIT 15 MINUTES 01/25/2020 12:00:00 AM EST [facility] ([facility]) Extended Individual Psychotherapy - 45 min 01/25/2020 12:00:00 AM EST - 01/25/2020 12:00:00 AM EST [facility] ([facility]) Extended Individual Psychotherapy - 45 min 0 12:00:00 AM EST [facility] ([facility]) Extended Individual Psychotherapy - 45 min 01/10/2020 12:00:00 AM EST - 01/10/2020 12:00:00 AM EST [facility] ([facility]) Extended Individual Psychotherapy - 45 min 0 12:00:00 AM EST [facility] ([facility]) OFFICE OUTPATIENT VISIT 15 MINUTES 12/29 12:00:00 AM EDT - 12/30/2019 12:00:00 AM EDT [facility] ([facility]) OFFICE OUTPATIENT VISIT 15 MINUTES 12/30/2019 12:00:00 AM EDT [facility] ([facility]) Brief Individual Psychotherapy - 30 min 12/16/2019 12:00:00 AM EDT - 12/16/2019 12:00:00 AM EDT [facility] ([facility]) Brief Individual Psychotherapy - 30 min 12/16/2019 12: 00:00 AM EDT [facility] ([facility]) MHC Telemed E/M Lvl 3--Est pt 12/02/2019 12:00:00 AM EDT - 12/02/2019 12:00:00 AM EDT [facility] ([facility]) Psychotherapy ADD ON - 30 Minutes 12/02/2019 12:00:00 AM EDT [facility] ([facility]) MHC Telemed E/M Lvl 3--Est pt 12/02/2019 12:00:00 AM E DT [facility] ([facility]) Extended Individual Psychotherapy - 45 min 11/30/2019 12:00:00 AM EDT - 11/30/2019 12:00:00 AM EDT [facility] ([facility]) Extended Individual Psychotherapy - 45 min 0 12:00:00 AM EDT [facility] ([facility]) Extended Individual Psychotherapy - 45 min 11/09/2019 12:00:00 AM EDT - 11/09/2019 12:00:00 AM EDT [facility] ([facility]) Extended Individual Psychotherapy - 45 min 0 12:00:00 AM EDT [facility] ([facility]) MHC Telemed E/M Lvl 3--Est pt 11/04/2019 12:00:00 AM EDT - 11/04/2019 12:00:00 AM EDT [facility] ([facility]) Psychotherapy ADD ON - 30 Minutes 11/04/2019 12:00:00 AM EDT [facility] ([facility]) [facility] Telemed E/M Lvl 3--Est pt 11/04/2019 12:00:00 AM E DT [facility] ([facility]) Results ID Date Data Source [id number] 12/04/2020 08:04:00 PM EDT [facility] ([facility]) Name Value Range Interpretation Code Description Data Rema rce(s) Supporting Document(s) White Blood Count 9.7 10 4.0-10.0 Normal (applies to non-numeri c results) [facility] ([facility]) Hematocrit 42.0 % 36.0-47.0 Normal (applies to non-numeric resul ts) [facility] ([facility]) Hemoglobin 14.2 g/dL 12.0-15.5 Normal (applies to non-numeric resul ts) [facility] ([facility]) Red Blood Count 4.89 10 4.00-5.40 Normal (applies to non-numeric results) [facility] ([facility]) Mean Corpuscular Volume 85.9 fl 80.0-96.0 Normal ( applies to non-numeric results) [facility] ([facility]) Mean Corpuscular Hemoglobin 29.0 pg 27.0-33.0 Norm al (applies to non-numeric results) [facility] ([facility]) Mean Corpuscular HGB Conc 33.8 g/dL 32.0-36.5 Normal (applies to non-numeric results) [facility] ([facility]) Red Cell Distribution Width 13.4 % 11.5-14.5 Norm al (applies to non-numeric results) [facility] ([facility]) Platelet Count, Automated 209 10 150-450 Normal (applies to non-numeric results) [facility] ([facility]) [place] % 4.8 % 2.0-8.0 Normal (applies to non-numeric resul ts) [facility] ([facility]) Lymph % 11.0 % 24.0-44.0 Below low normal [facility] ( [facility]) Neutrophils % 81.9 % 36.0-66.0 Above high normal [facility] ([facility]) Baso % 0.7 % 0.0-1.0 Normal (applies to non-numeric resul ts) [facility] ([facility]) Immature Granulocyte % 0.4 % 0-3.0 Normal (applies to non-n umeric results) [facility] ([facility]) Eos % 1.2 % 0.0-3.0 Normal (applies to non-numeric resul ts) [facility] ([facility]) Neutrophils # 7.9 10 1.5-8.5 Normal (applies to non-numeric re sults) [facility] ([facility]) Nucleated Red Blood Cell % 0.0 % 0-0 Normal (applies to n on-numeric results) [facility] ([facility]) Eos # 0.1 10 0.0-0.5 Normal (applies to non-numeric resul ts) [facility] ([facility]) Lymph # 1.1 10 1.5-5.0 Below low normal [facility] ( [facility]) [place] # 0.5 10 0.0-0.8 Normal (applies to non-numeric resul ts) [facility] ([facility]) Baso # 0.1 10 0.0-0.2 Normal (applies to non-numeric resul ts) [facility] ([facility]) ID Date Data Source [id number] 12/04/2020 08:04:00 PM EDT [facility] ([facility]) Name Value Range Interpretation Code Description Data Rema rce(s) Supporting Document(s) CK-MB Value Mass 1.5 ng/mL Normal (applies to non-numeric results) [facility] ([facility]) MB/CK Relative Index 2.08 Normal (applies to non-num prashanth results) [facility] ([facility]) <content>DIAGNOSIS CRITERIA</content>
<content>MMB ng/ml Relative Index (RI)</content>
<content>NON-AMI < or = 5 N/A</content>
<content>RAYA ZONE > 5 < or = 4</content>
<content>AMI > 5 > 4</content>
<content></content> CPK Creatine Phosphokinase 72 U/L 26-192 [place] l (applies to non-numeric results) [facility]) Troponin I Laboratory test result Normal (applies to non-n umeric results) [facility] ([facility]) <content>Troponin I Reference Interval f or Siemens [place] LOCI:</content>
<content></content>
<content>99th Percentile= 0.00-0.045 ng/ml</content>
<content></content>
<content>Risk Stratification:</content>
<content><= 0.10 ng/ml Decreased Risk for Adverse Clinical</content>
<content>Events.</content>
<content>0.10-1.50 ng/ml Increased Risk for Adverse Clinical</content>
<content>Events. Evaluation of additional</content>
<content>criterion and/or repeat testing in 2-6</content>
<content>hours is suggested to rule out myocardial</content>
<content>damage.</content>
<content>>= 1.50 ng/ml Indicative of Myocardial Injury.</content>
<content></content> ID Date Data Source [id number] 12/04/2020 08:04:00 PM EDT [facility]) Name Value Range Interpretation Code Description Data Rema rce(s) Supporting Document(s) Glucose, Fasting 104 mg/dL 70-100 Above high normal [facility]) Glomerular Filtration Rate Laboratory test result Normal (applies to non- numeric results) [facility]) <content>Units are mL/min/1.73 m2</content>
<content></content>
<content>Chronic Kidney Disease Staging per NKF:</content>
<content></content>
<content>Stage I & II GFR >=60 Normal to Mildly Decreased</content>
<content>Stage III GFR 30- 59 Moderately Decreased</content>
<content>Stage IV GFR 15-29 Severely Decreased</content>
<content>Stage V GFR <15 Very Little GFR Left</content>
<content>ESRD GFR <15 on STRATEGIC DEBRIEFING SPECIALIST</content>
<content></content> Blood Urea Nitrogen 10 mg/dL 7-18 Normal (applies to non-nume zeny results) [facility] ([facility]) Creatinine For GFR 0.91 mg/dL 0.55-1.30 Normal (applies to non -numeric results) [facility] ([facility]) Sodium Level 142 meq/L 136-145 Normal (applies to non-numeric res ults) [facility] ([facility]) Potassium Serum 3.8 meq/L 3.5-5.1 Normal (applies to non-numeric results) [facility] ([facility]) Carbon Dioxide Level 26 meq/L 21-32 Normal (applies to non-num prashanth results) [facility] ([facility]) Chloride Level 108 meq/L 98-107 Above high normal [facility] ([facility]) Anion Gap 8 meq/L 8-16 Normal (applies to non-numeric resul ts) [facility] ([facility]) Calcium Level 9.1 mg/dL 8.5-10.1 Normal (applies to non-numeric re sults) [facility] ([facility]) Alt/SGPT 34 U/L 12-78 Normal (applies to non-numeric resul ts) [facility] ([facility]) Ast/Sgot 21 U/L 7-37 Normal (applies to non-numeric resul ts) [facility] ([facility]) Alkaline Phosphatase 89 U/L 45-117 Normal (applies to non-num prashanth results) [facility] ([facility]) Bilirubin,Total 0.5 mg/dL 0.2-1.0 Normal (applies to non-numeric results) [facility] ([facility]) Total Protein 7.5 GM/DL 6.4-8.2 Normal (applies to non-numeric re sults) [facility] ([facility]) Albumin 3.5 GM/DL 3.2-5.2 Normal (applies to non-numeric resul ts) [facility] ([facility]) Albumin/Globulin Ratio 0.9 1.2-2.2 Below low normal [facility] ([facility]) ID Date Data Source [id number] 12/04/2020 05:40:00 PM EDT [facility] ([facility]) Name Value Range Interpretation Code Description Data Rema rce(s) Supporting Document(s) Respiratory Panel Laboratory test result [facility] ([facility]) This respiratory PCR panel detects Influ [...] risk infants. ORGANISM 1: RESPIRATORY SYNCYTIAL VIRUS ID Date Data Source [id number] 12/04/2020 05:40:00 PM EDT [facility] Name Value Range Interpretation Code Description Data Rema rce(s) Supporting Document(s) SARS-CoV-2 (COVID 19) NEGATIVE - SARS-CoV-2 (COVID19) [facility] This lab was ordered by [facility] a nd reported by [facility]. ID Date Data Source [id number] 10/21/2020 10:52:00 AM EDT [facility] ([facility]) Name Value Range Interpretation Code Description Data Rema rce(s) Supporting Document(s) U1 small nuclear ribonucleoprotein Ab [Presence] in Se rum Laboratory test result Normal (applies to non-numeric results) [facility] ([facility]) <content>Negative: <20 </content>
<content>Weak Positive: 20 - 39</content>
<content>Moderate Positive: 40 - 80</content>
<content>Strong Positive: > 80</content>
<content></content> Centromere protein B Ab [Units/volume] in Serum Laboratory test result 0.0-0.9 Normal (applies to non-numeric results) [facility] ([facility]) Specimen Comment: Test(s) [id number] PROJECT ANALYST Ab (RDL) Specimen Comment: was developed and its performance characteristics Specimen Comment: determined by [facility]. It has not been cleared or approved Specimen Comment: by the Food and Drug Administration. [place] extractable nuclear Ab [Units/volume] in Serum Laboratory test result Normal (applies to non-numeric results) [facility] ([facility]) <content>Negative: <20 </content>
<content>Weak Positive: 20 - 39</content>
<content>Moderate Positive: 40 - 80</content>
<content>Strong Positive: > 80</content>
<content></content> ID Date Data Source [id number] 10/21/2020 10:52:00 AM EDT [facility]) Name Value Range Interpretation Code Description Data Rema rce(s) Supporting Document(s) Ssa Sjogrens A Laboratory test result 0.0-0.9 Normal (a pplies to non-numeric results) [facility] ([facility]) SSB Sjogrens B Laboratory test result 0.0-0.9 Normal (a pplies to non-numeric results) [facility] ([facility]) ID Date Data Source [id number] 10/21/2020 10:52:00 AM EDT [facility]) Name Value Range Interpretation Code Description Data Rema rce(s) Supporting Document(s) Cardiolipin Iga Antibody Laboratory test result 0-11 Normal (applies to non- numeric results) [facility] ([facility]) <content>Negative: <12</con tent>
<content>Indeterminate: 12 - 20</content>
<content>Low-Med Positive: >20 - 80</content>
<content>High Positive: >80</content>
<content></content> Cardiolipin Igg Antibody 10 GPLU/mL 0-14 Normal (applies to non-numeric results) [facility] ([facility]) <content>Negative: <15</con tent>
<content>Indeterminate: 15 - 20</content>
<content>Low-Med Positive: >20 - 80</content>
<content>High Positive: >80</content>
<content></content> Cardiolipin Igm Antibody 9 MPLU/mL 0-12 Normal (applies to non-numeric results) [facility] ([facility]) <content>Negative: <13</con tent>
<content>Indeterminate: 13 - 20</content>
<content>Low-Med Positive: >20 - 80</content>
<content>High Positive: >80</content>
<content></content> ID Date Data Source [id number] 10/21/2020 10:52:00 AM EDT [facility] ([facility]) Name Value Range Interpretation Code Description Data Rema rce(s) Supporting Document(s) Histone Ab [Presence] in Serum 3.1 units 0.0-0.9 Above high [place] [facility] ([facility]) <content>Negative <1.0</c ontent>
<content>Weak Positive 1.0 - 1.5</content>
<content>Moderate Positive 1.6 - 2.5</content>
<content>Strong Positive >2.5</content>
<content></content> DNA double strand Ab [Units/volume] in Serum Laboratory test res ult Normal (applies to non-numeric results) [facility]) Specimen Comment: Test(s) [id number] PROJECT ANALYST Ab (RDL) Specimen Comment: was developed and its performance characteristics Specimen Comment: determined by [facility]. It has not been cleared or approved Specimen Comment: by the Food and Drug Administration. Renée Titer [employer] Pattern Laboratory test result [place] l (applies to non-numeric results) [facility] ([facility]) <content>Negative <1:80</content>
<content>Borderline 1:80</content>
<content>Positive >1:80</content>
<content>ICAP nomenclature: AC-0</content>
<content>For more information about Hep-2 cell patterns use</content>
<content>ANApatterns.org, the official website for the</content>
<content>International Consensus on Antinuclear Antibody (RENÉE)</content>
<content>Patterns (ICAP).</content>
<content>Performed at: - [facility]</content>
<content>[address] [place] [id number]</content>
<content>Press Helper: Pretty Swain MD, Phone: [phone]</content>
<content>Performed at: [facility]</content>
<content>[address] [place] [id number]</content>
<content>Press Helper: Prabhakar Hudson MD, Phone: [phone]</content>
<content>Performed at: [facility]</content>
<content>[address] [place] [address] [phone]</content>
<content>Press Helper: Bora Wu MD, Phone: [phone]</content>
<content></content> SCL-70 extractable nuclear Ab [Units/volume] in Serum Labora tory test result 0.0-0.9 Normal (applies to non-numeric results) [facility] ([facility]) Specimen Comment: Test(s) [id number] PROJECT ANALYST Ab (RDL) Specimen Comment: was developed and its performance characteristics Specimen Comment: determined by [facility]. It has not been cleared or approved Specimen Comment: by the Food and Drug Administration. ID Date Data Source [id number] 10/21/2020 10:52:00 AM EDT [facility]) Name Value Range Interpretation Code Description Data Rema rce(s) Supporting Document(s) Beta-2 Glycoprotein I Loni Igg Laboratory test result 0-20 Normal (applies to non-numeric results) [facility]) Result Units: GPI IgG units . The reference interval reflects a 3SD or 99th percentile interval, which is thought to represent a potentially clinically significant result in accordance with the International Consensus Statement on the classification criteria for definitive antiphospholipid syndrome (APS). J Thromb Haem 2006;4:295-306. Beta-2 Glycoprotein I Loni Iga Laboratory test result 0-25 Normal (applies to non-numeric results) [facility]) Result Units: GPI IgA units . The reference interval reflects a 3SD or 99th percentile interval, which is thought to represent a potentially clinically significant result in accordance with the International Consensus Statement on the classification criteria for definitive antiphospholipid syndrome (APS). J Thromb Haem 2006;4:295-306. Beta-2 Glycoprotein I Loni Igm 10 0-32 Normal (chrystal lies to non-numeric results) [facility]) Result Units: GPI IgM units . The reference interval reflects a 3SD or 99th percentile interval, which is thought to represent a potentially clinically significant result in accordance with the International Consensus Statement on the classification criteria for definitive antiphospholipid syndrome (APS). J Thromb Haem 2006;4:295-306. ID Date Data Source [id number] 10/02/2020 12:55:00 PM EDT [facility]) Name Value Range Interpretation Code Description Data Rema rce(s) Supporting Document(s) Phosphate [Moles/volume] in Serum or Plasma 3.6 mg/dL 2.5- 4.9 Normal (applies to non-numeric results) [facility] ) <content>note:<nlbl:demographic_changed> </content>
<content></content> Iron [Mass/volume] in Serum or Plasma 50 ug/dL 50-170 Normal (applies to non- numeric results) [facility] ([facility]) <content>note:<nlbl:demographic_changed> </content>
<content></content> Creatine kinase [Enzymatic activity/volume] in Serum or Plasma 4 3 U/L 26-192 Normal (applies to non-numeric results) [facility] ([facility]) <content>note:<nlbl:demographic_changed> </content>
<content></content> Magnesium [Mass/volume] in Serum or Plasma 2.1 mg/dL 1.8-2 .4 Normal (applies to non-numeric results) [facility] ([facility]) <content>note:<nlbl:demographic_changed> </content>
<content></content> Complement C3 [Mass/volume] in Serum or Plasma 148 mg/dL 9 0-180 Normal (applies to non-numeric results) [facility] <content>note:<nlbl:demographic_changed> </content>
<content></content> Complement C4 [Mass/volume] in Serum or Plasma 23 mg/dL 1 0-40 Normal (applies to non-numeric results) [facility] ([facility] ) <content>note:<nlbl:demographic_changed> </content>
<content></content> Thyrotropin [Units/volume] in Serum or Plasma 0.828 uIU/ML 0. 358-3.740 Normal (applies to non-numeric results) [facility] ([facility]) <content>note:<nlbl:demographic_changed> </content>
<content></content> Cobalamin (Vitamin B12) [Mass/volume] in Serum or Plasma 710 pg/ mL 247-911 Normal (applies to non-numeric results) [facility] ([facility]) VITAMIN B12 NORMAL RANGE NORMAL 247 - 911 PG/ML INDETERMINATE 211 - 246 PG/ML DEFICIENT LESS THAN 211 PG/ML Calcidiol [Mass/volume] in Serum or Plasma 24.7 ng/mL 30.0- 100.0 Below low normal [facility] ([facility]) <content>note:<nlbl:demographic_changed> </content>
<content></content> C reactive protein [Mass/volume] in Serum or Plasma by High sensitivity method 1.67 mg/dL 0.00-0.30 Above high normal [facility] ([facility]) <content>note:<nlbl:demographic_changed> </content>
<content></content> ID Date Data Source [id number] 10/02/2020 12:54:00 PM EDT [facility] ([facility]) Name Value Range Interpretation Code Description Data Rema rce(s) Supporting Document(s) Complement total hemolytic CH50 [Units/volume] in Seru m or Plasma Laboratory test result Normal (applies to non-numeric results) [facility] ([facility]) Age Male Female 1 - 30 days [...] range values. Performed at: RN - [facility] [address] [id number] Press Helper: Pretty Swain MD, Phone: [phone] Erythrocyte sedimentation rate by Westergren method 45 mm/hr 0-20 Above high normal [facility] ([facility]) ID Date Data Source [id number] 10/02/2020 12:54:00 PM EDT [facility] ([facility]) Name Value Range Interpretation Code Description Data Rema rce(s) Supporting Document(s) PTT Lupus Type Anticoag Screen 1.4 0-1.2 Above high [place] [facility] ([facility]) RESULT IS 1.2 OR GREATER, FURTHER TESTING [...] coagulation factor deficiency or a specific inhibitor. ID Date Data Source [id number] 10/02/2020 12:54:00 PM EDT [facility]) Name Value Range Interpretation Code Description Data Rema rce(s) Supporting Document(s) Lupus Confirm Stago 1.27 0.00-1.20 Above high normal [facility] ([facility]) NORMALIZED RATIO IS EQUAL TO OR GREATER THAN 1.20 LA IS PRESENT. SPECIMEN WILL BE SENT TO [facility] [employer] [facility] [place], [address] [place]. [id number] REFERE FORMERLY [facility] FOR CONFIRMATION. ID Date Data Source [id number] 10/02/2020 12:54:00 PM EDT [facility] ([facility]) Name Value Range Interpretation Code Description Data Rema rce(s) Supporting Document(s) Hexagonal Phase Phospholipid 0 sec 0-11 Normal (appl ies to non-numeric results) [facility] ([facility]) Laboratory test finding (navigational concept) Laboratory test r esult Normal (applies to non-numeric results) [facility] ([facility]) . Results do not indicate the presence of a Lupus Anticoagulant: abnormal high screening results (PTT-LA, dRVVT, mixing studies), may be due to medication (heparin, warfarin, aspirin), Factor inhibitors, anticardiolipin antibodies, or poor specimen integrity. Performed at: [facility] - [facility] [id number] Press Helper: Prabhakar Hudson MD, Phone: [phone] ID Date Data Source [id number] 10/02/2020 12:54:00 PM EDT [facility] ([facility]) Name Value Range Interpretation Code Description Data Rema rce(s) Supporting Document(s) Red Blood Count 4.54 10 4.00-5.40 Normal (applies to non-numeric results) [facility] ([facility]) White Blood Count 7.8 10 4.0-10.0 Normal (applies to non-numeri c results) [facility] ([facility]) Hematocrit 39.2 % 36.0-47.0 Normal (applies to non-numeric resul ts) [facility] ([facility]) Hemoglobin 12.9 g/dL 12.0-15.5 Normal (applies to non-numeric resul ts) [facility] ([facility]) Mean Corpuscular Volume 86.3 fl 80.0-96.0 Normal ( applies to non-numeric results) [facility] ([facility]) Mean Corpuscular HGB Conc 32.9 g/dL 32.0-36.5 Normal (applies to non-numeric results) [facility] ([facility]) Mean Corpuscular Hemoglobin 28.4 pg 27.0-33.0 Norm al (applies to non-numeric results) [facility] ([facility]) Red Cell Distribution Width 13.3 % 11.5-14.5 Norm al (applies to non-numeric results) [facility] ([facility]) Platelet Count, Automated 212 10 150-450 Normal (applies to non-numeric results) [facility] ([facility]) Lymph % 27.9 % 24.0-44.0 Normal (applies to non-numeric resul ts) [facility] ([facility]) Neutrophils % 59.4 % 36.0-66.0 Normal (applies to non-numeric re sults) [facility] ([facility]) Baso % 0.4 % 0.0-1.0 Normal (applies to non-numeric resul ts) [facility] ([facility]) Eos % 5.6 % 0.0-3.0 Above high normal [facility] ([facility]) [place] % 6.4 % 2.0-8.0 Normal (applies to non-numeric resul ts) [facility] ([facility]) Immature Granulocyte % 0.3 % 0-3.0 Normal (applies to non-n umeric results) [facility] ([facility]) Nucleated Red Blood Cell % 0.0 % 0-0 Normal (applies to n on-numeric results) [facility] ([facility]) [place] # 0.5 10 0.0-0.8 Normal (applies to non-numeric resul ts) [facility] ([facility]) Neutrophils # 4.6 10 1.5-8.5 Normal (applies to non-numeric re sults) [facility] ([facility]) Lymph # 2.2 10 1.5-5.0 Normal (applies to non-numeric resul ts) [facility] ([facility]) Baso # 0.0 10 0.0-0.2 Normal (applies to non-numeric resul ts) [facility] ([facility]) Eos # 0.4 10 0.0-0.5 Normal (applies to non-numeric resul ts) [facility] ([facility]) ID Date Data Source [id number] 10/02/2020 12:00:00 AM EDT eCW1 ([facility]) Name Value Range Interpretation Code Description Data Rema rce(s) Supporting Document(s) 1.27 0.00-1.20 NORMALIZED RATIO eCW1 ([facility]) ID Date Data Source [id number] 10/02/2020 12:00:00 AM EDT eCW1 ([facility]) Name Value Range Interpretation Code Description Data Rema rce(s) Supporting Document(s) 0.828 0.358-3.740 THYROID STIMULATING HORM ONE eCW1 ([facility]) ID Date Data Source LUPUS TYPE ANTICOAGULANT SCREE 10/02/2020 12:00:00 AM EDT eC W1 ([facility]) Name Value Range Interpretation Code Description Data Rema rce(s) Supporting Document(s) 1.4 0-1.2 PTT LUPUS TYPE ANTICOAG S CREEN eCW1 ([facility]) ID Date Data Source COMPLEMENT TOTAL (CH50) 10/02/2020 12:00:00 AM EDT eCW1 ([facility]) Name Value Range Interpretation Code Description Data Rema rce(s) Supporting Document(s) > 60 >41 COMPLEMENT TOTAL (CH50) eCW1 ( [facility]) ID Date Data Source VITAMIN B12 LEVEL 10/02/2020 12:00:00 AM EDT eCW1 ([facility]) Name Value Range Interpretation Code Description Data Rema rce(s) Supporting Document(s) [id number] VITAMIN B12 LEVEL eCW1 ([facility]) ID Date Data Source VITAMIN D 25-HYDROXY 10/02/2020 12:00:00 AM EDT eCW1 ([facility]) Name Value Range Interpretation Code Description Data Rema rce(s) Supporting Document(s) 24.7 30.0-100.0 TOTAL 25(OH) VITAMIN D eC W1 ([facility]) ID Date Data Source [facility] Hand, complete 10/02/2020 12:00:00 AM EDT eCW1 ([facility]) Name Value Range Interpretation Code Description Data Rema rce(s) Supporting Document(s) [facility] Hand, complete eCW1 ([facility]) ID Date Data Source [facility] Wrist, complete 10/02/2020 12:00:00 AM EDT eCW1 ([facility]) Name Value Range Interpretation Code Description Data Rema rce(s) Supporting Document(s) [facility] Wrist, complete eCW1 ([facility]) ID Date Data Source [facility] Ankle, complete 10/02/2020 12:00:00 AM EDT eCW1 ([facility]) Name Value Range Interpretation Code Description Data Rema rce(s) Supporting Document(s) [facility] Ankle, complete eCW1 ([facility]) ID Date Data Source MAGNESIUM LEVEL 10/02/2020 12:00:00 AM EDT eCW1 ([facility]) Name Value Range Interpretation Code Description Data Rema rce(s) Supporting Document(s) 2.1 1.8-2.4 MAGNESIUM LEVEL eCW1 ([facility]) ID Date Data Source IRON (FE) 10/02/2020 12:00:00 AM EDT eCW1 ([facility]) Name Value Range Interpretation Code Description Data Rema rce(s) Supporting Document(s) 50 50-170 IRON (FE) eCW1 ([facility]) ID Date Data Source CPK CREATINE PHOSPHOKINASE 10/02/2020 12:00:00 AM EDT eCW1 ( [facility]) Name Value Range Interpretation Code Description Data Rema rce(s) Supporting Document(s) 43 26-192 CPK CREATINE PHOSPHOKINASE eCW 1 ([facility]) ID Date Data Source PHOSPHOROUS LEVEL 10/02/2020 12:00:00 AM EDT eCW1 ([facility]) Name Value Range Interpretation Code Description Data Rema rce(s) Supporting Document(s) 3.6 2.5-4.9 PHOSPHORUS LEVEL eCW1 ([facility]) ID Date Data Source ERYTHROCYTE SEDIMENTATION RATE 10/02/2020 12:00:00 AM EDT eC W1 ([facility]) Name Value Range Interpretation Code Description Data Rema rce(s) Supporting Document(s) 45 0-20 ERYTHROCYTE SEDIMENTATION RATE eCW1 ([facility]) ID Date Data Source C REACTIVE PROTEIN QUANTITATIV (At [facility]) 10/02/2020 12:00 :00 AM EDT eCW1 ([facility]) Name Value Range Interpretation Code Description Data Rema rce(s) Supporting Document(s) 1.67 0.00-0.30 C REACTIVE PROTEIN QUANTI TATIV eCW1 ([facility]) ID Date Data Source CBC with Differential 10/02/2020 12:00:00 AM EDT eCW1 ([facility]) Name Value Range Interpretation Code Description Data Rema rce(s) Supporting Document(s) 4.54 4.00-5.40 RED BLOOD COUNT eCW1 ([facility]) 7.8 4.0-10.0 WHITE BLOOD COUNT eCW1 ([facility]) 39.2 36.0-47.0 HEMATOCRIT eCW1 ([facility]) 12.9 12.0-15.5 HEMOGLOBIN eCW1 ([facility]) 86.3 80.0-96.0 MEAN CORPUSCULAR VOLUME e CW1 ([facility]) 13.3 11.5-14.5 RED CELL DISTRIBUTION WID TH eCW1 ([facility]) 28.4 27.0-33.0 MEAN CORPUSCULAR HEMOGLOB IN eCW1 ([facility]) 32.9 32.0-36.5 MEAN CORPUSCULAR HGB CONC eCW1 ([facility]) 59.4 36.0-66.0 NEUTROPHILS % eCW1 ([facility]) 212 150-450 PLATELET COUNT, AUTOMATED eCW1 ([facility]) 27.9 24.0-44.0 LYMPH % eCW1 ([facility]) 0.4 0.0-1.0 BASO % eCW1 ([facility]) 5.6 0.0-3.0 EOS % eCW1 ([facility]) 6.4 2.0-8.0 MONO % eCW1 ([facility]) 0.5 0.0-0.8 MONO # eCW1 ([facility]) 2.2 1.5-5.0 LYMPH # eCW1 ([facility]) 4.6 1.5-8.5 NEUTROPHILS # eCW1 ([facility]) 0.0 0.0-0.2 BASO # eCW1 ([facility]) 0.4 0.0-0.5 EOS # eCW1 ([facility]) ID Date Data Source COMPLEMENT C4 10/02/2020 12:00:00 AM EDT eCW1 ([facility]) Name Value Range Interpretation Code Description Data Rema rce(s) Supporting Document(s) 23 10-40 COMPLEMENT C4 eCW1 ([facility]) ID Date Data Source COMPLEMENT C3 10/02/2020 12:00:00 AM EDT eCW1 ([facility]) Name Value Range Interpretation Code Description Data Rema rce(s) Supporting Document(s) 148 90-180 COMPLEMENT C3 eCW1 ([facility]) ID Date Data Source UA URINALYSIS 09/28/2020 12:00:00 AM EDT eCW1 ([facility]) Name Value Range Interpretation Code Description Data Rema rce(s) Supporting Document(s) UA URINALYSIS eCW1 ([facility]) ID Date Data Source TOTAL PROTEIN,RANDOM URINE 09/28/2020 12:00:00 AM EDT eCW1 ( [facility]) Name Value Range Interpretation Code Description Data Rema rce(s) Supporting Document(s) 12.4 0.0-12.0 TOTAL PROTEIN,RANDOM URIN E eCW1 ([facility]) ID Date Data Source CREATININE,RANDOM URINE 09/28/2020 12:00:00 AM EDT eCW1 ([facility]) Name Value Range Interpretation Code Description Data Rema rce(s) Supporting Document(s) 175.0 CREATININE,RANDOM URINE eCW1 ( [facility]) ID Date Data Source [id number] 06/19/2020 10:39:00 AM EDT [facility] ([facility]) Name Value Range Interpretation Code Description Data Rema rce(s) Supporting Document(s) Anti Double Strand-Dna AB 32 IU/ml 0-9 Above high normal [facility] ([facility]) <content>Negative <5</content>
<content>Equivocal 5 - 9</content>
<content>Positive >9</content>
<content></content> PROJECT ANALYST Antibodies Laboratory test result 0.0-0.9 Normal (a pplies to non-numeric results) [facility] ([facility]) Antinuclear Antibodies Direct Laboratory test result Abnormal (applies to non- numeric results) [facility] ([facility]) [place]argo Antibodies Laboratory test result 0.0-0.9 Normal ( applies to non-numeric results) [facility] ([facility]) Sjogren's Anti SS-A Laboratory test result 0.0-0.9 [place] l (applies to non- numeric results) [facility] ([facility]) Renée Comment Laboratory test result Normal (applies to non- numeric results) [facility] ([facility]) . Autoantibody Disease Association Condition Frequency -------- [...] (anti-[place]) SLE 15 - 30% ------- --------- PROJECT ANALYST Mixed Connective Tissue Disease 95% (U1 nRNP, SLE 30 - 50% anti-ribonucleoprotein) Polymyositis and/or Dermatomyositis 20% -------- --------- Scl-70 (antiDNA Scleroderma (diffuse) 20 - 35% topoisomerase) Crest 13% -------- --------- Edel-1 Polymyositis and/or Dermatomyositis 20 - 40% -------- --------- Centromere B Scleroderma - Crest variant 80% Performed at: - [facility] [id number] Press Helper: Pretty Swain MD, Phone: [phone] Sjogren's Anti SS-B Laboratory test result 0.0-0.9 [place] l (applies to non- numeric results) [facility] ([facility]) ID Date Data Source [id number] 06/19/2020 10:39:00 AM EDT [facility] ([facility]) Name Value Range Interpretation Code Description Data Rema rce(s) Supporting Document(s) Glucose, Fasting 83 mg/dL 70-100 Normal (applies to non-numeric results) [facility] ([facility]) Blood Urea Nitrogen 22 mg/dL 7-18 Above high normal [facility] ([facility]) Creatinine For GFR 0.83 mg/dL 0.55-1.30 Normal (applies to non -numeric results) [facility] ([facility]) Sodium Level 139 meq/L 136-145 Normal (applies to non-numeric res ults) [facility] ([facility]) Glomerular Filtration Rate Laboratory test result Normal (applies to non- numeric results) [facility] ([facility]) <content>Units are mL/min/1.73 m2</content>
<content></content>
<content>Chronic Kidney Disease Staging per NKF:</content>
<content></content>
<content>Stage I & II GFR >=60 Normal to Mildly Decreased</content>
<content>Stage III GFR 30- 59 Moderately Decreased</content>
<content>Stage IV GFR 15-29 Severely Decreased</content>
<content>Stage V GFR <15 Very Little GFR Left</content>
<content>ESRD GFR <15 on STRATEGIC DEBRIEFING SPECIALIST</content>
<content></content> Chloride Level 106 meq/L 98-107 Normal (applies to non-numeric r esults) [facility] ([facility]) Potassium Serum 4.3 meq/L 3.5-5.1 Normal (applies to non-numeric results) [facility] ([facility]) Anion Gap 5 meq/L 8-16 Below low normal [facility] ( [facility]) Carbon Dioxide Level 28 meq/L 21-32 Normal (applies to non-num prashanth results) [facility] ([facility]) Calcium Level 9.1 mg/dL 8.5-10.1 Normal (applies to non-numeric re sults) [facility] ([facility]) Ast/Sgot 17 U/L 7-37 Normal (applies to non-numeric resul ts) [facility] ([facility]) Alt/SGPT 29 U/L 12-78 Normal (applies to non-numeric resul ts) [facility] ([facility]) Alkaline Phosphatase 103 U/L 45-117 Normal (applies to non-num prashanth results) [facility] ([facility]) Bilirubin,Total 0.4 mg/dL 0.2-1.0 Normal (applies to non-numeric results) [facility] ([facility]) Albumin 3.5 GM/DL 3.2-5.2 Normal (applies to non-numeric resul ts) [facility] ([facility]) Total Protein 7.1 GM/DL 6.4-8.2 Normal (applies to non-numeric re sults) [facility] ([facility]) Albumin/Globulin Ratio 1.0 1.2-2.2 Below low normal [facility] ([facility]) ID Date Data Source [id number] 06/19/2020 10:39:00 AM EDT [facility] ([facility]) Name Value Range Interpretation Code Description Data Rema rce(s) Supporting Document(s) Nuclear Ab [Titer] in Serum by Immunofluorescence Laboratory test res ult [facility] ([facility]) Erythrocyte sedimentation rate by Westergren method 41 mm/hr 0-20 Above high normal [facility] ([facility]) Rheumatoid factor [Units/volume] in Serum or Plasma Laboratory t est result Normal (applies to non-numeric results) [facility] ([facility]) <content>note:<nlbl:demographic_changed> </content>
<content></content> C reactive protein [Mass/volume] in Serum or Plasma by High sensitivity method 1.13 mg/dL 0.00-0.30 Above high normal [facility] ([facility]) <content>note:<nlbl:demographic_changed> </content>
<content></content> ID Date Data Source [id number] 06/19/2020 10:39:00 AM EDT [facility] ([facility]) Name Value Range Interpretation Code Description Data Rema rce(s) Supporting Document(s) Red Blood Count 4.67 10 4.00-5.40 Normal (applies to non-numeric results) [facility] ([facility]) White Blood Count 7.1 10 4.0-10.0 Normal (applies to non-numeri c results) [facility] ([facility]) Hemoglobin 13.5 g/dL 12.0-15.5 Normal (applies to non-numeric resul ts) [facility] ([facility]) Hematocrit 42.2 % 36.0-47.0 Normal (applies to non-numeric resul ts) [facility] ([facility]) Mean Corpuscular HGB Conc 32.0 g/dL 32.0-36.5 Normal (applies to non-numeric results) [facility] ([facility]) Mean Corpuscular Hemoglobin 28.9 pg 27.0-33.0 Norm al (applies to non-numeric results) [facility] ([facility]) Mean Corpuscular Volume 90.4 fl 80.0-96.0 Normal ( applies to non-numeric results) [facility] ([facility]) Platelet Count, Automated 238 10 150-450 Normal (applies to non-numeric results) [facility] ([facility]) Neutrophils % 56.9 % 36.0-66.0 Normal (applies to non-numeric re sults) [facility] ([facility]) Red Cell Distribution Width 13.1 % 11.5-14.5 Norm al (applies to non-numeric results) [facility] ([facility]) [place] % 5.5 % 2.0-8.0 Normal (applies to non-numeric resul ts) [facility] ([facility]) Lymph % 28.2 % 24.0-44.0 Normal (applies to non-numeric resul ts) [facility] ([facility]) Eos % 8.1 % 0.0-3.0 Above high normal [facility] ([facility]) Baso % 1.0 % 0.0-1.0 Normal (applies to non-numeric resul ts) [facility] ([facility]) Immature Granulocyte % 0.3 % 0-3.0 Normal (applies to non-n umeric results) [facility] ([facility]) Nucleated Red Blood Cell % 0.0 % 0-0 Normal (applies to n on-numeric results) [facility]) Neutrophils # 4.0 10 1.5-8.5 Normal (applies to non-numeric re sults) [facility]) Lymph # 2.0 10 1.5-5.0 Normal (applies to non-numeric resul ts) [facility] ([facility]) Eos # 0.6 10 0.0-0.5 Above high normal [facility] ([facility]) Baso # 0.1 10 0.0-0.2 Normal (applies to non-numeric resul ts) [facility] ([facility]) [place] # 0.4 10 0.0-0.8 Normal (applies to non-numeric resul ts) [facility] ([facility]) ID Date Data Source [id number] 06/15/2020 03:00:00 PM EDT [facility] ([facility]) Name Value Range Interpretation Code Description Data Rema rce(s) Supporting Document(s) Pelvis Complete - 3 Views Laboratory test result [facility] ([facility]) Hip Complete RT Laboratory test result [facility] ([facility]) Spine LS Complete Laboratory test result [facility] ([facility]) Spine Thoracic Laboratory test result [facility] ([facility]) ID Date Data Source [id number] 04/23/2020 06:59:00 PM EST [facility] ([facility]) Name Value Range Interpretation Code Description Data Rema rce(s) Supporting Document(s) Laboratory test finding (navigational concept) 40.0 % 3 8.0-51.0 Normal (applies to non-numeric results) [facility] ([facility]) Laboratory test finding (navigational concept) 92 mg/dL 7 0-105 Normal (applies to non-numeric results) [facility] ([facility]) Laboratory test finding (navigational concept) 3.7 meq/L 3 .5-5.1 Normal (applies to non-numeric results) [facility] ([facility]) Laboratory test finding (navigational concept) 142 meq/L 1 36-145 Normal (applies to non-numeric results) [facility] ([facility]) Laboratory test finding (navigational concept) 4.8 mg/dL 4 .5-5.3 Normal (applies to non-numeric results) [facility] ([facility]) Laboratory test finding (navigational concept) 104 meq/L 9 8-109 Normal (applies to non-numeric results) [facility] ([facility]) Laboratory test finding (navigational concept) 30.0 MM/L 2 3.0-27.0 Above high normal [facility] ([facility]) Laboratory test finding (navigational concept) 18 mg/dL 8 -26 Normal (applies to non-numeric results) [facility] ([facility]) Laboratory test finding (navigational concept) 1.1 mg/dL 0 .6-1.3 Normal (applies to non-numeric results) [facility] ([facility]) ID Date Data Source [id number] 04/23/2020 06:52:00 PM EST [facility] ([facility]) Name Value Range Interpretation Code Description Data Rema rce(s) Supporting Document(s) Reflex Urine Culture Laboratory test result Norm al (applies to non-numeric results) [facility] ([facility]) FULL REPORT IN LAB NOTES (eCW and [facility] ). NO GROWTH CLINICAL SIGNIFICANCE 2 OR MORE ORGANISMS ID Date Data Source [id number] 04/23/2020 06:52:00 PM EST [facility] ([facility]) Name Value Range Interpretation Code Description Data Rema rce(s) Supporting Document(s) Appearance, Urine RFX Laboratory test result Nor mal (applies to non-numeric results) [facility] ([facility]) PH,Urine RFX 6.0 units 5.0-9.0 Normal (applies to non-numeric res ults) [facility] ([facility]) Color, Urine RFX Laboratory test result Normal ( applies to non-numeric results) [facility] ([facility]) Specific [place] Ur Auto RFX 1.020 1.002-1.035 Nor mal (applies to non-numeric results) [facility] ([facility]) Protein, Urine Auto RFX Laboratory test result N ormal (applies to non-numeric results) [facility] ([facility]) Glucose, Urine (Ua) Auto RFX Laboratory test result Normal (applies to non- numeric results) [facility] ([facility]) Ketone, Urine Auto RFX Laboratory test result No rmal (applies to non-numeric results) [facility] ([facility]) Bilirubin, Urine Auto RFX Laboratory test result Normal (applies to non- numeric results) [facility] ([facility]) Urobilinogen, Urine Auto RFX 0.2 mg/dL 0.0-2.0 Nor mal (applies to non-numeric results) [facility] ([facility]) Nitrite, Urine Auto RFX Laboratory test result N ormal (applies to non-numeric results) [facility] ([facility]) Blood, Urine Blood RFX Laboratory test result Above high n ormal [facility] ([facility]) Leukocyte Esterase Ur Auto RFX Laboratory test result Abov e high normal [facility] ([facility]) WBC, Urine Auto RFX 32 /HPF 0-3 Above high normal [facility] ([facility]) RBC, Urine Auto RFX Laboratory test result 0-3 Above high norm al [facility] ([facility]) Bacteria, Urine Auto RFX Laboratory test result Above high normal [facility] ([facility]) Squam Epithelial Cell Ur Aurfx 1 /HPF 0-6 N ormal (applies to non-numeric results) [facility] ([facility]) Transitional Epithelial AU RFX Laboratory test result Normal (applies to non- numeric results) [facility] ([facility]) Hyaline Cast, Urine Auto RFX 0 /LPF 0-1 Normal (appl ies to non-numeric results) [facility] ([facility]) ID Date Data Source [id number] 04/23/2020 06:52:00 PM EST [facility] ([facility]) Name Value Range Interpretation Code Description Data Rema e(s) Supporting Document(s) Lipase [Enzymatic activity/volume] in Serum or Plasma 194 U/L 73-393 Normal (applies to non-numeric results) [facility] ([facility]) <content>note:<nlbl:demographic_changed> </content>
<content></content> ID Date Data Source [id number] 04/23/2020 06:52:00 PM EST [facility] ([facility]) Name Value Range Interpretation Code Description Data Rema rce(s) Supporting Document(s) Ast/Sgot 15 U/L 7-37 Normal (applies to non-numeric resul ts) [facility] ([facility]) Alt/SGPT 24 U/L 12-78 Normal (applies to non-numeric resul ts) [facility] ([facility]) Alkaline Phosphatase 130 U/L 45-117 Above high normal [facility] ([facility]) Bilirubin,Total 0.2 mg/dL 0.2-1.0 Normal (applies to non-numeric results) [facility] ([facility]) Bilirubin,Direct Laboratory test result 0.0-0.2 Normal ( applies to non-numeric results) [facility] ([facility]) Total Protein 7.4 GM/DL 6.4-8.2 Normal (applies to non-numeric re sults) [facility] ([facility]) Albumin 3.2 GM/DL 3.2-5.2 Normal (applies to non-numeric resul ts) [facility] ([facility]) Albumin/Globulin Ratio 0.8 1.2-2.2 Below low normal [facility] ([facility]) ID Date Data Source [id number] 04/23/2020 06:52:00 PM EST [facility] ([facility]) Name Value Range Interpretation Code Description Data Rema rce(s) Supporting Document(s) White Blood Count 9.5 10 4.0-10.0 Normal (applies to non-numeri c results) [facility] ([facility]) Red Blood Count 4.44 10 4.00-5.40 Normal (applies to non-numeric results) [facility] ([facility]) Hemoglobin 13.2 g/dL 12.0-15.5 Normal (applies to non-numeric resul ts) [facility] ([facility]) Hematocrit 40.4 % 36.0-47.0 Normal (applies to non-numeric resul ts) [facility] ([facility]) Mean Corpuscular Volume 91.0 fl 80.0-96.0 Normal ( applies to non-numeric results) [facility] ([facility]) Mean Corpuscular Hemoglobin 29.7 pg 27.0-33.0 Norm al (applies to non-numeric results) [facility] ([facility]) Mean Corpuscular HGB Conc 32.7 g/dL 32.0-36.5 Normal (applies to non-numeric results) [facility] ([facility]) Neutrophils % 56.5 % 36.0-66.0 Normal (applies to non-numeric re sults) [facility] ([facility]) Platelet Count, Automated 294 10 150-450 Normal (applies to non-numeric results) [facility] ([facility]) Red Cell Distribution Width 12.8 % 11.5-14.5 Norm al (applies to non-numeric results) [facility] ([facility]) Lymph % 29.0 % 24.0-44.0 Normal (applies to non-numeric resul ts) [facility] ([facility]) [place] % 5.4 % 2.0-8.0 Normal (applies to non-numeric resul ts) [facility] ([facility]) Baso % 0.8 % 0.0-1.0 Normal (applies to non-numeric resul ts) [facility] ([facility]) Eos % 8.1 % 0.0-3.0 Above high normal [facility] ([facility]) Nucleated Red Blood Cell % 0.0 % 0-0 Normal (applies to n on-numeric results) [facility] ([facility]) Immature Granulocyte % 0.2 % 0-3.0 Normal (applies to non-n umeric results) [facility] ([facility]) [place] # 0.5 10 0.0-0.8 Normal (applies to non-numeric resul ts) [facility] ([facility]) Neutrophils # 5.3 10 1.5-8.5 Normal (applies to non-numeric re sults) [facility] ([facility]) Lymph # 2.8 10 1.5-5.0 Normal (applies to non-numeric resul ts) [facility] ([facility]) Eos # 0.8 10 0.0-0.5 Above high normal [facility] ([facility]) Baso # 0.1 10 0.0-0.2 Normal (applies to non-numeric resul ts) [facility] ([facility]) ID Date Data Source [id number] 04/06/2020 06:45:00 PM EST [facility] Name Value Range Interpretation Code Description Data Rema rce(s) Supporting Document(s) SARS coronavirus 2 RNA [Presence] in Res piratory specimen by PATSY with probe detection NEGATIVE [place] This lab was ordered by [facility] a nd reported by [facility]. ID Date Data Source Comprehensive Metabolic Profile (CMP) 03/31/2020 12:00:00 AM EST eCW1 ([facility]) Name Value Range Interpretation Code Description Data Rema rce(s) Supporting Document(s) 116 70-100 GLUCOSE, FASTING eCW1 ([facility]) 0.67 0.55-1.30 CREATININE FOR GFR eCW1 ([facility]) 9 7-18 BLOOD UREA NITROGEN eCW1 ([facility]) > 60.0 >60 GLOMERULAR FILTRATION RATE eCW 1 ([facility]) 138 136-145 SODIUM LEVEL eCW1 ([facility]) 4.4 3.5-5.1 POTASSIUM SERUM eCW1 ([facility]) 103 98-107 CHLORIDE LEVEL eCW1 ([facility]) 9.1 8.5-10.1 CALCIUM LEVEL eCW1 ([facility]) 29 21-32 CARBON DIOXIDE LEVEL eCW1 ([facility]) 13 12-78 ALT/SGPT eCW1 ([facility]) 6 7-37 AST/SGOT eCW1 ([facility]) 0.2 0.2-1.0 BILIRUBIN,TOTAL eCW1 ([facility]) 2.4 3.2-5.2 ALBUMIN eCW1 ([facility]) 6.4 6.4-8.2 TOTAL PROTEIN eCW1 ([facility]) 122 45-117 ALKALINE PHOSPHATASE eCW1 ([facility]) 0.6 1.2-2.2 ALBUMIN/GLOBULIN RATIO eCW1 ([facility]) ID Date Data Source CBC - Complete Blood Count 03/31/2020 12:00:00 AM EST eCW1 ( [facility]) Name Value Range Interpretation Code Description Data Rema rce(s) Supporting Document(s) 4.28 4.00-5.40 RED BLOOD COUNT eCW1 ([facility]) 12.1 4.0-10.0 WHITE BLOOD COUNT eCW1 ([facility]) 13.2 12.0-15.5 HEMOGLOBIN eCW1 ([facility]) 30.8 27.0-33.0 MEAN CORPUSCULAR HEMOGLOB IN eCW1 ([facility]) 39.0 36.0-47.0 HEMATOCRIT eCW1 ([facility]) 33.8 32.0-36.5 MEAN CORPUSCULAR HGB CONC eCW1 ([facility]) 91.1 80.0-96.0 MEAN CORPUSCULAR VOLUME e CW1 ([facility]) 197 150-450 PLATELET COUNT, AUTOMATED eCW1 ([facility]) 13.8 11.5-14.5 RED CELL DISTRIBUTION WID TH eCW1 ([facility]) ID Date Data Source Pre Eclampsia Profile 03/08/2020 12:00:00 AM EST eCW1 ([facility]) Name Value Range Interpretation Code Description Data Rema rce(s) Supporting Document(s) 0.62 0.55-1.30 CREATININE FOR GFR eCW1 ([facility]) 7 7-37 AST/SGOT eCW1 ([facility]) > 60.0 >60 GLOMERULAR FILTRATION RATE eCW 1 ([facility]) 16 12-78 ALT/SGPT eCW1 ([facility]) 145 84-246 LDH LACTATE DEHYDROGENASE eCW1 ([facility]) 3.6 2.6-6.0 URIC ACID eCW1 ([facility]) 0.2 0.2-1.0 BILIRUBIN,TOTAL eCW1 ([facility]) ID Date Data Source Glucose Challenge Test 1 Hour 01/24/2020 12:00:00 AM EST eCW 1 ([facility]) Name Value Range Interpretation Code Description Data Rema rce(s) Supporting Document(s) 121 LESS THAN 140 GLUCOSE CHALLENGE TEST 1 HOUR eCW1 ([facility]) ID Date Data Source Type and Screen (D Rh Antibody Screen) 01/24/2020 12:00:00 A M EST eCW1 ([facility]) Name Value Range Interpretation Code Description Data Rema rce(s) Supporting Document(s) NEGATIVE AB SCREEN (INDIRECT COOMB S)VIS eCW1 ([facility]) O POSITIVE BLOOD TYPE eCW1 ([facility]) ID Date Data Source WWBC OBS COMPLETE US 12/21/2019 03:14:36 AM EDT eCW1 ([facility]) Name Value Range Interpretation Code Description Data Rema rce(s) Supporting Document(s) eCW1 ([facility]) ID Date Data Source PAP REQUEST FOR SERVICE 12/13/2019 02:40:09 AM EDT eCW1 ([facility]) Name Value Range Interpretation Code Description Data Rema rce(s) Supporting Document(s) eCW1 ([facility]) ID Date Data Source HEPATITIS C ANTIBODY INDEX 12/13/2019 02:39:54 AM EDT eCW1 ( [facility]) Name Value Range Interpretation Code Description Data Rema rce(s) Supporting Document(s) 1.1 eCW1 ([facility]) ID Date Data Source HBSAG 12/09/2019 10:34:13 AM EDT eCW1 ([facility]) Name Value Range Interpretation Code Description Data Rema rce(s) Supporting Document(s) NEGATIVE eCW1 ([facility]) ID Date Data Source RUBELLA IMMUNE STATUS IgG 12/09/2019 10:33:58 AM EDT eCW1 ([facility]) Name Value Range Interpretation Code Description Data Rema rce(s) Supporting Document(s) IMMUNE eCW1 ([facility]) ID Date Data Source SYPHILIS ANTIBODY (RPR SCREEN) 12/09/2019 10:33:52 AM EDT eC W1 ([facility]) Name Value Range Interpretation Code Description Data Rema rce(s) Supporting Document(s) NONREACTIVE eCW1 ([facility]) ID Date Data Source [id number] 12/09/2019 10:19:01 AM EDT eCW1 ([facility]) Name Value Range Interpretation Code Description Data Rema rce(s) Supporting Document(s) eCW1 ([facility]) ID Date Data Source [id number] 10/24/2019 06:15:00 PM EDT MEDENT ([facility]) Name Value Range Interpretation Code Description Data Rema rce(s) Supporting Document(s) Reflex Urine Culture Laboratory test result Norm al (applies to non-numeric results) [facility] ([facility]) <content>FULL REPORT IN LAB NOTES (eCW [...] FOR ESBL</content>
<content></content> ID Date Data Source [id number] 10/24/2019 06:15:00 PM EDT MED[facility] ([facility]) Name Value Range Interpretation Code Description Data Rema rce(s) Supporting Document(s) PH,Urine RFX 5.0 units 5.0-9.0 Normal (applies to non-numeric res ults) [facility] ([facility]) Color, Urine RFX Laboratory test result Normal ( applies to non-numeric results) [facility]) Appearance, Urine RFX Laboratory test result Above high no rmal [facility] ([facility]) Specific [place] Ur Auto RFX 1.021 1.002-1.035 Nor mal (applies to non-numeric results) [facility] ([facility]) Glucose, Urine (Ua) Auto RFX Laboratory test result Normal (applies to non- numeric results) [facility] ([facility]) Protein, Urine Auto RFX Laboratory test result N ormal (applies to non-numeric results) [facility] ([facility]) Ketone, Urine Auto RFX Laboratory test result Above high n ormal [facility] ([facility]) Urobilinogen, Urine Auto RFX 0.2 mg/dL 0.0-2.0 Nor mal (applies to non-numeric results) [facility] ([facility]) Bilirubin, Urine Auto RFX Laboratory test result Normal (applies to non- numeric results) [facility] ([facility]) Blood, Urine Blood RFX Laboratory test result No rmal (applies to non-numeric results) [facility] ([facility]) Nitrite, Urine Auto RFX Laboratory test result N ormal (applies to non-numeric results) [facility] ([facility]) Leukocyte Esterase Ur Auto RFX Laboratory test result Abov e high normal [facility] ([facility]) WBC, Urine Auto RFX 2 /HPF 0-3 Normal (applies to non-nume zeny results) [facility] ([facility]) RBC, Urine Auto RFX 2 /HPF 0-3 Normal (applies to non-nume zeny results) [facility] ([facility]) Bacteria, Urine Auto RFX Laboratory test result Normal (applies to non-numeric results) [facility] ([facility]) Squam Epithelial Cell Ur Aurfx 5 /HPF 0-6 N ormal (applies to non-numeric results) [facility] ([facility]) Hyaline Cast, Urine Auto RFX 0 /LPF 0-1 Normal (appl ies to non-numeric results) [facility] ([facility]) Mucus, Urine RFX Laboratory test result Normal ( applies to non-numeric results) [facility] ([facility]) ID Date Data Source [id number] 10/24/2019 05:33:00 PM EDT [facility]) Name Value Range Interpretation Code Description Data Rema rce(s) Supporting Document(s) Lipase [Enzymatic activity/volume] in Serum or Plasma 72 U/L 73-393 Below low normal [facility] ([facility]) <content>note:<nlbl:demographic_changed> </content>
<content></content> ID Date Data Source [id number] 10/24/2019 05:33:00 PM EDT [facility]) Name Value Range Interpretation Code Description Data Rema rce(s) Supporting Document(s) Glucose, Fasting 88 mg/dL 70-100 Normal (applies to non-numeric results) [facility] ([facility]) Blood Urea Nitrogen 9 mg/dL 7-18 Normal (applies to non-nume zeny results) [facility] ([facility]) Creatinine For GFR 0.69 mg/dL 0.55-1.30 Normal (applies to non -numeric results) [facility] ([facility]) Sodium Level 139 meq/L 136-145 Normal (applies to non-numeric res ults) [facility] ([facility]) Glomerular Filtration Rate Laboratory test result Normal (applies to non- numeric results) [facility] ([facility]) <content>Units are mL/min/1.73 m2</content>
<content></content>
<content>Chronic Kidney Disease Staging per NKF:</content>
<content></content>
<content>Stage I & II GFR >=60 Normal to Mildly Decreased</content>
<content>Stage III GFR 30-59 Moderately Decreased</content>
<content>Stage IV GFR 15-29 Severely Decreased</content>
<content>Stage V GFR <15 Very Little GFR Left</content>
<content>ESRD GFR <15 on STRATEGIC DEBRIEFING SPECIALIST</content>
<content></content> Potassium Serum 3.9 meq/L 3.5-5.1 Normal (applies to non-numeric results) [facility] ([facility]) Carbon Dioxide Level 23 meq/L 21-32 Normal (applies to non-num prashanth results) [facility] ([facility]) Chloride Level 108 meq/L 98-107 Above high normal [facility] ([facility]) Calcium Level 8.6 mg/dL 8.5-10.1 Normal (applies to non-numeric re sults) [facility] ([facility]) Anion Gap 8 meq/L 8-16 Normal (applies to non-numeric resul ts) [facility] ([facility]) ID Date Data Source [id number] 10/24/2019 05:33:00 PM EDT [facility] ([facility]) Name Value Range Interpretation Code Description Data Rema rce(s) Supporting Document(s) Ast/Sgot 15 U/L 7-37 Normal (applies to non-numeric resul ts) [facility] ([facility]) Alkaline Phosphatase 80 U/L 45-117 Normal (applies to non-num prashanth results) [facility] ([facility]) Bilirubin,Total 0.4 mg/dL 0.2-1.0 Normal (applies to non-numeric results) [facility] ([facility]) Alt/SGPT 23 U/L 12-78 Normal (applies to non-numeric resul ts) [facility] ([facility]) Albumin 3.2 GM/DL 3.2-5.2 Normal (applies to non-numeric resul ts) [facility] ([facility]) Total Protein 7.1 GM/DL 6.4-8.2 Normal (applies to non-numeric re sults) [facility] ([facility]) Bilirubin,Direct 0.1 mg/dL 0.0-0.2 Normal (applies to non-numeric results) [facility] ([facility]) Albumin/Globulin Ratio 0.8 1.2-2.2 Below low normal [facility] ([facility]) ID Date Data Source [id number] 10/24/2019 05:33:00 PM EDT [facility] ([facility]) Name Value Range Interpretation Code Description Data Rema rce(s) Supporting Document(s) Hemoglobin 13.7 g/dL 12.0-15.5 Normal (applies to non-numeric resul ts) [facility] ([facility]) Red Blood Count 4.64 10 4.00-5.40 Normal (applies to non-numeric results) [facility] ([facility]) White Blood Count 9.9 10 4.0-10.0 Normal (applies to non-numeri c results) [facility] ([facility]) Mean Corpuscular Hemoglobin 29.5 pg 27.0-33.0 Norm al (applies to non-numeric results) [facility] ([facility]) Hematocrit 40.5 % 36.0-47.0 Normal (applies to non-numeric resul ts) [facility] ([facility]) Mean Corpuscular Volume 87.3 fl 80.0-96.0 Normal ( applies to non-numeric results) [facility] ([facility]) Mean Corpuscular HGB Conc 33.8 g/dL 32.0-36.5 Normal (applies to non-numeric results) [facility] ([facility]) Red Cell Distribution Width 13.9 % 11.5-14.5 Norm al (applies to non-numeric results) [facility] ([facility]) Platelet Count, Automated 223 10 150-450 Normal (applies to non-numeric results) [facility] ([facility]) Neutrophils % 78.7 % 36.0-66.0 Above high normal MEDE NT ([facility]) [place] % 2.9 % 0.0-5.0 Normal (applies to non-numeric resul ts) [facility] ([facility]) Lymph % 14.6 % 24.0-44.0 Below low normal [facility] ( [facility]) Baso % 0.4 % 0.0-1.0 Normal (applies to non-numeric resul ts) [facility] ([facility]) Immature Granulocyte % 0.5 % 0-3.0 Normal (applies to non-n umeric results) [facility] ([facility]) Eos % 2.9 % 0.0-3.0 Normal (applies to non-numeric resul ts) [facility] ([facility]) Nucleated Red Blood Cell % 0.0 % 0-0 Normal (applies to n on-numeric results) [facility] ([facility]) Neutrophils # 7.8 10 1.5-8.5 Normal (applies to non-numeric re sults) [facility] ([facility]) Lymph # 1.5 10 1.5-5.0 Normal (applies to non-numeric resul ts) [facility] ([facility]) [place] # 0.3 10 0.0-0.8 Normal (applies to non-numeric resul ts) [facility] ([facility]) Baso # 0.0 10 0.0-0.2 Normal (applies to non-numeric resul ts) [facility] ([facility]) Eos # 0.3 10 0.0-0.5 Normal (applies to non-numeric resul ts) [facility] ([facility]) Procedure Social History Code Duration Value Status Description Data Source(s ) Smoking 11/17/2020 12:00:00 AM EDT Unknown if ever smoked comp leted Unknown if ever smoked [facility] ([facility]) Smoking 11/03/2020 12:00:00 AM EDT Former Smoker completed Former Smoker eCW1 ([facility]) Smoking 11/03/2020 12:00:00 AM EDT Former Smoker completed Former Smoker eCW1 ([facility]) Alcohol intake 10/13/2020 12:00:00 AM EDT Current drinker of al cohol (finding) completed Current drinker of alcohol (finding) [facility] Smoking 09/28/2020 12:00:00 AM EDT Former Smoker completed Former Smoker eCW1 ([facility]) Smoking 09/28/2020 12:00:00 AM EDT Former Smoker completed Former Smoker eCW1 ([facility]) Smoking 09/28/2020 12:00:00 AM EDT Former Smoker completed Former Smoker eCW1 ([facility]) Smoking 09/28/2020 12:00:00 AM EDT Former Smoker completed Former Smoker eCW1 ([facility]) Smoking 09/18/2020 12:00:00 AM EDT Unknown if ever smoked comp leted Unknown if ever smoked [facility] ([facility]) Smoking 08/17/2020 12:00:00 AM EDT Unknown if ever smoked comp leted Unknown if ever smoked [facility] ([facility]) Smoking 07/25/2020 12:00:00 AM EDT Unknown if ever smoked comp leted Unknown if ever smoked [facility] ([facility]) Smoking 07/07/2020 12:00:00 AM EDT Unknown if ever smoked comp leted Unknown if ever smoked [facility] ([facility]) Smoking 06/28/2020 12:00:00 AM EDT Former Smoker completed Former Smoker eCW1 ([facility]) Smoking 06/20/2020 12:00:00 AM EDT Unknown if ever smoked comp leted Unknown if ever smoked [facility] ([facility]) Smoking 06/01/2020 12:00:00 AM EDT Unknown if ever smoked comp leted Unknown if ever smoked [facility] ([facility]) Smoking 05/24/2020 12:00:00 AM EDT Unknown if ever smoked comp leted Unknown if ever smoked [facility] ([facility]) Smoking 05/09/2020 12:00:00 AM EST Unknown if ever smoked comp leted Unknown if ever smoked [facility] ([facility]) Smoking 04/27/2020 12:00:00 AM EST Former Smoker completed Former Smoker eCW1 ([facility]) Smoking 04/27/2020 12:00:00 AM EST Former Smoker completed Former Smoker eCW1 ([facility]) Smoking 04/27/2020 12:00:00 AM EST Unknown if ever smoked comp leted Unknown if ever smoked [facility] ([facility]) Smoking 04/25/2020 12:00:00 AM EST Unknown if ever smoked comp leted Unknown if ever smoked [facility] ([facility]) Smoking 04/11/2020 12:00:00 AM EST Unknown if ever smoked comp leted Unknown if ever smoked [facility] ([facility]) Smoking 04/02/2020 12:00:00 AM EST Former Smoker completed Former Smoker eCW1 ([facility]) Smoking 03/24/2020 12:00:00 AM EST Former Smoker completed Former Smoker eCW1 ([facility]) Smoking 03/24/2020 12:00:00 AM EST Former Smoker completed Former Smoker eCW1 ([facility]) Smoking 03/24/2020 12:00:00 AM EST Unknown if ever smoked comp leted Unknown if ever smoked [facility] ([facility]) Smoking 03/21/2020 12:00:00 AM EST Unknown if ever smoked comp leted Unknown if ever smoked [facility] ([facility]) Smoking 03/17/2020 12:00:00 AM EST Unknown if ever smoked comp leted Unknown if ever smoked [facility] ([facility]) Smoking 03/16/2020 12:00:00 AM EST Former Smoker completed Former Smoker eCW1 ([facility]) Smoking 03/06/2020 12:00:00 AM EST Former Smoker completed Former Smoker eCW1 ([facility]) Smoking 03/06/2020 12:00:00 AM EST Former Smoker completed Former Smoker eCW1 ([facility]) Smoking 03/06/2020 12:00:00 AM EST Unknown if ever smoked comp leted Unknown if ever smoked [facility] ([facility]) Smoking 02/21/2020 12:00:00 AM EST Former Smoker completed Former Smoker eCW1 ([facility]) Smoking 02/21/2020 12:00:00 AM EST Former Smoker completed Former Smoker eCW1 ([facility]) Smoking 02/21/2020 12:00:00 AM EST Former Smoker completed Former Smoker eCW1 ([facility]) Smoking 02/11/2020 12:00:00 AM EST Unknown if ever smoked comp leted Unknown if ever smoked [facility] ([facility]) Smoking 01/25/2020 12:00:00 AM EST Unknown if ever smoked comp leted Unknown if ever smoked [facility] ([facility]) Smoking 01/21/2020 12:00:00 AM EST Former Smoker completed Former Smoker eCW1 ([facility]) Smoking 01/21/2020 12:00:00 AM EST Former Smoker completed Former Smoker eCW1 ([facility]) Smoking 01/21/2020 12:00:00 AM EST Former Smoker completed Former Smoker eCW1 ([facility]) Smoking 01/10/2020 12:00:00 AM EST Unknown if ever smoked comp leted Unknown if ever smoked [facility] ([facility]) Smoking 12/30/2019 12:00:00 AM EDT Unknown if ever smoked comp leted Unknown if ever smoked [facility] ([facility]) Smoking 12/16/2019 12:00:00 AM EDT Unknown if ever smoked comp leted Unknown if ever smoked [facility] ([facility]) Smoking 12/07/2019 12:00:00 AM EDT Former Smoker completed Former Smoker eCW1 ([facility]) Smoking 12/02/2019 12:00:00 AM EDT Unknown if ever smoked comp leted Unknown if ever smoked [facility] ([facility]) Smoking 11/30/2019 12:00:00 AM EDT Unknown if ever smoked comp leted Unknown if ever smoked [facility] ([facility]) Tobacco use and exposure 11/11/2019 12:00:00 AM EDT Never used co mpleted Never used [facility] Smoking 11/11/2019 12:00:00 AM EDT Former smoker completed Former smoker [facility] Smoking 11/09/2019 12:00:00 AM EDT Unknown if ever smoked comp leted Unknown if ever smoked [facility] ([facility]) Smoking 11/04/2019 12:00:00 AM EDT Unknown if ever smoked comp leted Unknown if ever smoked [facility] ([facility]) Vital Signs ID Date Data Source UNK Name Value Range Interpretation Code Description Data Source(s) Body weight 305.2 [lb_av] 305.2 [lb_av] eCW1 ([facility]) Body weight 138.44 kg 138.44 kg W1 ([facility]) Body height 66 [in_i] 66 [in_i] W1 ([facility]) Body mass index (BMI) [Ratio] 49.26 kg/m2 49.26 kg/m2 [facility] ([facility]) Heart rate 78 /min 78 /min eCW1 ([facility]) Respiratory rate 18 /min 18 /min eCW1 ([facility]) Body temperature 97.2 [degF] 97.2 [degF] eCW1 ( [facility]) Systolic blood pressure 138 mm[Hg] 138 mm[Hg] e CW1 ([facility]) Diastolic blood pressure 78 mm[Hg] 78 mm[Hg] eCW1 ([facility]) Body height 167.6 cm 167.6 cm [facility] Systolic blood pressure 118 mm[Hg] 118 mm[Hg] [facility] Diastolic blood pressure 90 mm[Hg] 90 mm[Hg] [facility] Heart rate 69 /min 69 /min [facility] Body weight 136.079 kg 136.079 kg [facility] Body mass index (BMI) [Ratio] 48.42 kg/m2 48.42 kg/m2 [facility] Oxygen saturation in Arterial blood by Pulse oximetry 97 % 97 % [facility] Body mass index (BMI) [Ratio] 48.06 kg/m2 48.06 kg/m2 eCW1 ([facility]) Body weight 297.8 [lb_av] 297.8 [lb_av] eCW1 ([facility]) Body weight 135.1 kg 135.1 kg W1 ([facility]) Body height 66 [in_i] 66 [in_i] eCW1 ([facility]) Heart rate 90 /min 90 /min eCW1 ([facility]) Respiratory rate 18 /min 18 /min eCW1 ([facility]) Body temperature 97.4 [degF] 97.4 [degF] eCW1 ( [facility]) Systolic blood pressure 118 mm[Hg] 118 mm[Hg] e CW1 ([facility]) Diastolic blood pressure 72 mm[Hg] 72 mm[Hg] eCW1 ([facility]) Respiratory rate 18 /min 18 /min [facility] ( [facility]) Systolic blood pressure 146 mm[Hg] 146 mm[Hg] M EDENT ([facility]) Elevated Oxygen saturation in Arterial blood by Pulse oximetry 96 % 96 % [facility] ([facility]) Body weight 299.00 [lb_av] 299.00 [lb_av] MEDEN T ([facility]) Body weight 135.626 kg 135.626 kg [facility] ([facility]) Diastolic blood pressure 80 mm[Hg] 80 mm[Hg] [facility] ([facility]) Elevated Heart rate 75 /min 75 /min [facility] ([facility]) Body temperature 96.8 [degF] 96.8 [degF] [facility] ([facility]) Body height 65 [in_i] 65 [in_i] [facility] ([facility]) 5'5" Body mass index (BMI) [Ratio] 49.8 kg/m2 49.8 k g/m2 [facility] ([facility]) Body surface area Derived from formula 2.35 m2 2.35 m2 [facility] ([facility]) Body weight 296 [lb_av] 296 [lb_av] eCW1 ([facility]) Body weight 134.26 kg 134.26 kg W1 ([facility]) Body height 66 [in_i] 66 [in_i] eCW1 ([facility]) Body mass index (BMI) [Ratio] 47.77 kg/m2 47.77 kg/m2 W1 ([facility]) Systolic blood pressure 130 mm[Hg] 130 mm[Hg] e CW1 ([facility]) Diastolic blood pressure 90 mm[Hg] 90 mm[Hg] eCW1 ([facility]) Systolic blood pressure 140 mm[Hg] 140 mm[Hg] M EDENT ([facility]) Diastolic blood pressure 70 mm[Hg] 70 mm[Hg] [facility] ([facility]) Heart rate 69 /min 69 /min [facility] ([facility]) Body temperature 98.2 [degF] 98.2 [degF] [facility] ([facility]) Respiratory rate 18 /min 18 /min [facility] ( [facility]) Oxygen saturation in Arterial blood by Pulse oximetry 98 % 98 % [facility] ([facility]) Body weight 292.00 [lb_av] 292.00 [lb_av] MEDEN T ([facility]) Body weight 132.451 kg 132.451 kg [facility] ([facility]) Body height 65 [in_i] 65 [in_i] [facility] ([facility]) 5'5" Body mass index (BMI) [Ratio] 48.6 kg/m2 48.6 k g/m2 [facility] ([facility]) Body surface area Derived from formula 2.32 m2 2.32 m2 [facility] ([facility]) Body height 0.00 in Normal (applies to non-numeric resu lts) 0.00 in [facility] ([facility]) Body weight Measured 0.00 lbs Normal (applies to n on-numeric results) 0.00 lbs [facility] ([facility]) Body mass index (BMI) [Ratio] 0.00 kg/m2 No rmal (applies to non-numeric results) 0.00 kg/m2 [facility] ([facility]) Systolic blood pressure 0 mm[Hg] Normal (applies t o non-numeric results) 0 mm[Hg] [facility] [facility]) Diastolic blood pressure 0 mm[Hg] Normal (applies to non-numeric results) 0 mm[Hg] [facility] ([facility]) Body weight 277 [lb_av] 277 [lb_av] eCW1 ([facility]) Body height 66 [in_i] 66 [in_i] eCW1 ([facility]) Body mass index (BMI) [Ratio] 44.7 kg/m2 44.7 k g/m2 W1 ([facility]) Systolic blood pressure 140 mm[Hg] 140 mm[Hg] e CW1 ([facility]) Diastolic blood pressure 86 mm[Hg] 86 mm[Hg] eCW1 ([facility]) Systolic blood pressure 152 mm[Hg] 152 mm[Hg] e CW1 ([facility]) Diastolic blood pressure 84 mm[Hg] 84 mm[Hg] eCW1 ([facility]) Body weight 297.6 [lb_av] 297.6 [lb_av] eCW1 ([facility]) Body height 66 [in_i] 66 [in_i] eCW1 ([facility]) Body mass index (BMI) [Ratio] 48.034 kg/m2 48.0 34 kg/m2 eCW1 ([facility]) Systolic blood pressure 132 mm[Hg] 132 mm[Hg] e CW1 ([facility]) Diastolic blood pressure 90 mm[Hg] 90 mm[Hg] eCW1 ([facility]) Body weight 294.2 [lb_av] 294.2 [lb_av] eCW1 ([facility]) Body weight 133.45 kg 133.45 kg eCW1 ([facility]) Body height 66 [in_i] 66 [in_i] eCW1 ([facility]) Body mass index (BMI) [Ratio] 47.485 kg/m2 47.4 85 kg/m2 eCW1 ([facility]) Systolic blood pressure 144 mm[Hg] 144 mm[Hg] e CW1 ([facility]) Diastolic blood pressure 90 mm[Hg] 90 mm[Hg] eCW1 ([facility]) Body height 0.00 in Normal (applies to non-numeric resu lts) 0.00 in [facility] ([facility]) Body weight Measured 0.00 lbs Normal (applies to n on-numeric results) 0.00 lbs [facility] ([facility]) Body mass index (BMI) [Ratio] 0.00 kg/m2 No rmal (applies to non-numeric results) 0.00 kg/m2 [facility] ([facility]) Systolic blood pressure 0 mm[Hg] Normal (applies t o non-numeric results) 0 mm[Hg] [facility] ([facility]) Diastolic blood pressure 0 mm[Hg] Normal (applies to non-numeric results) 0 mm[Hg] [facility] ([facility]) Body weight 292 [lb_av] 292 [lb_av] eCW1 ([facility]) Body height 66 [in_i] 66 [in_i] eCW1 ([facility]) Body mass index (BMI) [Ratio] 47.13 kg/m2 47.13 kg/m2 eCW1 ([facility]) Systolic blood pressure 128 mm[Hg] 128 mm[Hg] e CW1 ([facility]) Diastolic blood pressure 78 mm[Hg] 78 mm[Hg] eCW1 ([facility]) Body weight 290 [lb_av] 290 [lb_av] eCW1 ([facility]) Body weight 131.54 kg 131.54 kg eCW1 ([facility]) Body height 66 [in_i] 66 [in_i] eCW1 ([facility]) Body mass index (BMI) [Ratio] 46.807 kg/m2 46.8 07 kg/m2 eCW1 ([facility]) Systolic blood pressure 140 mm[Hg] 140 mm[Hg] e CW1 ([facility]) Diastolic blood pressure 98 mm[Hg] 98 mm[Hg] eCW1 ([facility]) Body weight 288.2 [lb_av] 288.2 [lb_av] eCW1 ([facility]) Body weight 130.73 kg 130.73 kg eCW1 ([facility]) Body height 66 [in_i] 66 [in_i] eCW1 ([facility]) Body mass index (BMI) [Ratio] 46.517 kg/m2 46.5 17 kg/m2 eCW1 ([facility]) Systolic blood pressure 118 mm[Hg] 118 mm[Hg] e CW1 ([facility]) Diastolic blood pressure 80 mm[Hg] 80 mm[Hg] eCW1 ([facility]) Body height 0.00 in Normal (applies to non-numeric resu lts) [facility]00 [facility] Body weight Measured 0.00 lbs Normal (applies to n on-numeric results) 0.00 lbs [facility] ([facility]) Body mass index (BMI) [Ratio] 0.00 kg/m2 No rmal (applies to non-numeric results) 0.00 kg/m2 [facility] ([facility]) Systolic blood pressure 0 mm[Hg] Normal (applies t o non-numeric results) 0 mm[Hg] [facility] ([facility]) Diastolic blood pressure 0 mm[Hg] Normal (applies to non-numeric results) 0 mm[Hg] [facility] ([facility]) Body weight 287 [lb_av] 287 [lb_av] eCW1 ([facility]) Body height 66 [in_i] 66 [in_i] eCW1 ([facility]) Body mass index (BMI) [Ratio] 46.323 kg/m2 46.3 23 kg/m2 W1 ([facility]) Systolic blood pressure 136 mm[Hg] 136 mm[Hg] e CW1 ([facility]) Diastolic blood pressure 76 mm[Hg] 76 mm[Hg] eCW1 ([facility]) Body weight 286 [lb_av] 286 [lb_av] eCW1 ([facility]) Body weight 129.73 kg 129.73 kg W1 ([facility]) Body height 66 [in_i] 66 [in_i] eCW1 ([facility]) Body mass index (BMI) [Ratio] 46.162 kg/m2 46.1 62 kg/m2 eCW1 ([facility]) Systolic blood pressure 124 mm[Hg] 124 mm[Hg] e CW1 ([facility]) Diastolic blood pressure 72 mm[Hg] 72 mm[Hg] eCW1 ([facility]) Body height 0.00 in Normal (applies to non-numeric resu lts) 0.00 in [facility] ([facility]) Body weight Measured 0.00 lbs Normal (applies to n on-numeric results) 0.00 lbs [facility] ([facility]) Body mass index (BMI) [Ratio] 0.00 kg/m2 No rmal (applies to non-numeric results) 0.00 kg/m2 [facility] ([facility]) Systolic blood pressure 0 mm[Hg] Normal (applies t o non-numeric results) 0 mm[Hg] [facility] ([facility]) Diastolic blood pressure 0 mm[Hg] Normal (applies to non-numeric results) 0 mm[Hg] [facility] ([facility]) Body weight 284.0 [lb_av] 284.0 [lb_av] eCW1 ([facility]) Body height 66 [in_i] 66 [in_i] eCW1 ([facility]) Body mass index (BMI) [Ratio] 45.839 kg/m2 45.8 39 kg/m2 eCW1 ([facility]) Systolic blood pressure 110 mm[Hg] 110 mm[Hg] e CW1 ([facility]) Diastolic blood pressure 76 mm[Hg] 76 mm[Hg] eCW1 ([facility]) Body height 0.00 in Normal (applies to non-numeric resu lts) 0.00 in [facility] ([facility]) Body weight Measured 0.00 lbs Normal (applies to n on-numeric results) 0.00 lbs [facility] ([facility]) Body mass index (BMI) [Ratio] 0.00 kg/m2 No rmal (applies to non-numeric results) 0.00 kg/m2 [facility] ([facility]) Systolic blood pressure 0 mm[Hg] Normal (applies t o non-numeric results) 0 mm[Hg] [facility] ([facility]) Diastolic blood pressure 0 mm[Hg] Normal (applies to non-numeric results) 0 mm[Hg] [facility] ([facility]) Body height 0.00 in Normal (applies to non-numeric resu lts) 0.00 in [facility] ([facility]) Body weight Measured 0.00 lbs Normal (applies to n on-numeric results) 0.00 lbs [facility] ([facility]) Body mass index (BMI) [Ratio] 0.00 kg/m2 No rmal (applies to non-numeric results) 0.00 kg/m2 [facility] ([facility]) Systolic blood pressure 0 mm[Hg] Normal (applies t o non-numeric results) 0 mm[Hg] [facility] ([facility]) Diastolic blood pressure 0 mm[Hg] Normal (applies to non-numeric results) 0 mm[Hg] [facility] ([facility]) ID Date Data Source [id number] 03/02/2020 10:20:45 AM EST [facility] Name Value Range Interpretation Code Description Data Source(s) TRANSFER FROM [facility] Patient Treatment Plan of Care Planned Activity Planned Date Details Description Data Source (s) Aimovig 140 MG/ML SOAJ 09/16/2020 12:00:00 AM EDT [facility] pregabalin 75 MG Oral Capsule 08/18/2020 12:00:00 AM EDT [facility] valacyclovir 500 MG Oral Tablet [Valtrex] 04/27/2020 12:00:00 AM ES T eCW1 ([facility]) valacyclovir 500 MG Oral Tablet [Valtrex] 04/27/2020 12:00:00 AM ES T eCW1 ([facility]) Sumatriptan 100 MG Oral Tablet 04/04/2020 12:00:00 AM EST eCW1 ([facility]) Metronidazole 500 MG Oral Tablet 03/10/2020 12:00:00 AM EST eCW1 ([facility]) Metronidazole 500 MG Oral Tablet 03/10/2020 12:00:00 AM EST eCW1 ([facility]) Acetaminophen 325 MG / butalbital 50 MG / Caffeine 40 MG Oral Capsule [Esg[facility]] 02/28/2020 12:00:00 AM EST eCW1 ([facility]) Acetaminophen 325 MG / butalbital 50 MG / Caffeine 40 MG Oral Capsule [[facility]sgic] 02/28/2020 12:00:00 AM EST eCW1 ([facility]) Amoxicillin 875 MG Oral Tablet 11/06/2019 12:00:00 AM EDT [facility] Cholecalciferol 1000 UNT Oral Tablet 10/21/2019 12:00:00 AM EDT [facility] Aspirin 81 MG Delayed Release Oral Tablet [facility] Vit-Fe Fumarate-FA ( 1+1 PO) [facility]
[2020-12-18] MEDS ORDERED: MAG SULF 1GM/100ML (MAG RUN) 1 GM in IV 1 EA IV ONE ×4 (15:40)
--- NOTE | 2020-12-18 15:45 | REP ---
INDICATION: cough, SOB. COMPARISON: 12/04/2020. TECHNIQUE: Single portable AP view of the chest was performed. FINDINGS: There is no acute infiltrate or pulmonary edema. Lungs are clear. The heart is not significantly enlarged. The mediastinal silhouette is unremarkable. The visualized osseous structures are intact. IMPRESSION: No acute pulmonary disease. <Electronically signed by Maikel Gomez > 12/18/20 [id number]
[2020-12-18] MEDS: IPRATROPIUM 0.5MG/ALBUTEROL 2.5MG INH SOL UD 3ML (DUONEB) NEB SCH ×3 (16:27→17:04)
[2020-12-18 16:57] LABS: BASO # 0.1 10^3/uL (0.0-0.2); BASO % 0.6 % (0.0-1.0); EOS # 0.3 10^3/uL (0.0-0.5); EOS % 3.4 % (0.0-3.0); HEMATOCRIT 45.8 % (36.0-47.0); HEMOGLOBIN 15.3 g/dl (12.0-15.5); LYMPH # 1.5 10^3/uL (1.5-5.0); LYMPH % 16.4 % (24.0-44.0); MEAN CORPUSCULAR HEMOGLOBIN 29.1 pg (27.0-33.0); MEAN CORPUSCULAR HGB CONC 33.4 g/dl (32.0-36.5); MEAN CORPUSCULAR VOLUME 87.1 fl (80.0-96.0); MONO # 0.3 10^3/uL (0.0-0.8); MONO % 3.5 % (2.0-8.0); NEUTROPHILS # 6.7 10^3/uL (1.5-8.5); NEUTROPHILS % 75.9 % (36.0-66.0); RED BLOOD COUNT 5.26 10^6/uL (4.00-5.40); WHITE BLOOD COUNT 8.9 10^3/uL (4.0-10.0)
--- OUTSIDE RECORDS SUMMARY | 2020-12-18 17:13 | CCD ---
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 Name Role Phone SYSTEM IN, NOT IN [...] Talbert MD Unavailable Unavailable GEOFF, H EZEQUIEL PARTS AND SERVICE MANAGER Unavailable Unavailable GEOFF, H EZEQUIEL PARTS AND SERVICE MANAGER Unavailable Unavailable GEOFF, H EZEQUIEL PARTS AND SERVICE MANAGER Unavailable Unavailable GEOFF, H EZEQUIEL PARTS AND SERVICE MANAGER Unavailable Unavailable GEOFF, H EZEQUIEL PARTS AND SERVICE MANAGER Unavailable Unavailable GEOFF, H EZEQUIEL PARTS AND SERVICE MANAGER Unavailable Unavailable GEOFF, H EZEQUIEL PARTS AND SERVICE MANAGER Unavailable Unavailable GEOFF, H EZEQUIEL PARTS AND SERVICE MANAGER Unavailable Unavailable GEOFF, H EZEQUIEL PARTS AND SERVICE MANAGER Unavailable Unavailable Mirtha Manley MD Unavailable Unavailable [...] is protected by Article 27-F of the [facility] Public Health law. If you continue you may have access to information: Regarding HIV / AIDS; Provided by facilities licensed or operated by the [facility] Office of Mental Health; or Provided by the [facility] Office for People With Developmental Disabilities. If such information is present, then the following [facility] mandated warning applies: This information has [...] law may result in a fine or residential sentence or both. A general authorization for the release of medical or other information is NOT sufficient authorization for further disc losure. Allergies and Adverse Reactions Type Description Substance Reaction Status Data Source(s ) Propensity to adverse reactions to substance nkda 24 HR Bupropion Hydrochloride 150 MG Extended Release Oral Tablet Active [facility] ([facility]) Propensity to adverse reactions ULTRAM ULTRAM [facility] Propensity to adverse reactions NEURONTIN NEURONTIN [facility] Food allergy SEAFOOD SEAFOOD SWOLLEN THROAT [facility] Drug allergy ATENOLOL ATENOLOL [facility] Drug allergy AMITRIPTYLINE AMITRIPTYLINE ANAPHYLAXIS VOMITING [facility] Drug allergy NORTRIPTYLINE NORTRIPTYLINE [facility] Family History Family Member Name Family Member Gender Family Member Status Date o f Status Description Data Source(s) Unknown Male Problem MEDENT ([facility]) Unknown Male Problem MEDENT ([facility], ) Encounters Encounter Providers Location Date Indications Data Source(s ) Extended Individual Psychotherapy - 45 min Attender: Ericka Mcguireus [facility] 11/17/2020 02:30:00 AM EDT - 11/17/2020 02:30:00 AM EDT [facility] ([facility]) Attender: Ericka iMguel Angel 11/17/2020 12:00:00 AM EDT [facility] ([facility]) [place] [address] [facility] [address] 11/16/2020 12:00:00 AM EDT eCW1 ([facility]) [place] [address] [address] 11/03/2020 12:00:00 AM EDT eCW1 ([facility]) [place] [address] [facility] [address] 10/26/2020 12:00:00 AM EDT eCW1 ([facility]) Outpatient Attender: Mirtha RIVERAeferrer: CAITLIN Lenz MD SJP.[email or web address] 10/13/2020 09:32:45 AM EDT - 10/13/2020 10:39:59 AM EDT [facility] Outpatient [address] [facility] [address] 10/02/2020 12:00:00 AM EDT eCW1 ([facility]) [place] [address] [address] 10/02/2020 12:00:00 AM EDT eCW1 ([facility]) Outpatient [address] [address] 09/28/2020 12:00:00 AM EDT eCW1 ([facility]) Extended Individual Psychotherapy - 45 min Attender: Ericka Michelle [facility] 09/18/2020 02:00:00 AM EDT - 09/18/2020 02:00:00 AM EDT [facility] ([facility]) Attender: Ericka Michelle 09/18/2020 12:00:00 AM EDT [facility] ([facility]) Attender: Ericka Michelle 08/17/2020 12:00:00 AM EDT [facility] ([facility]) Extended Individual Psychotherapy - 45 min Attender: Ericka Michelle [facility] 08/16/2020 10:00:00 AM EDT - 08/16/2020 10:00:00 AM EDT [facility] ([facility]) Extended Individual Psychotherapy - 45 min Attender: Ericka Michelle [facility] 07/25/2020 10:00:00 AM EDT - 07/25/2020 10:00:00 AM EDT [facility] ([facility]) Attender: Ericka Michelle 07/25/2020 12:00:00 AM EDT [facility] ([facility]) Extended Individual Psychotherapy - 45 min Attender: Ericka Michelle [facility] 07/07/2020 02:45:00 AM EDT - 07/07/2020 02:45:00 AM EDT [facility] ([facility]) Attender: Ericka Michelle 07/07/2020 12:00:00 AM EDT [facility] ([facility]) Outpatient Attender: Dean Talbert MD [facility] at [facility] 07/06/2020 10:40:00 AM EDT MEDENT ([facility]) Outpatient Attender: CAITLIN HERNANDEZ MDConsultant: CAITLIN Lenz MD 06/29/2020 02:34:00 PM EDT - 06/29/2020 02:34:00 PM EDT [facility] (WC ESTOB) [facility] Est OB [address] [place] [address] 06/28/2020 12:00:00 AM EDT eCW1 ([facility]) Extended Individual Psychotherapy - 45 min Attender: Ericka Michelle [facility] 06/20/2020 03:15:00 AM EDT - 06/20/2020 03:15:00 AM EDT [facility] ([facility]) Attender: Ericka Michelle 06/20/2020 12:00:00 AM EDT [facility] ([facility]) Outpatient Attender: CAITLIN HERNANDEZ MD Family Practice 06/15/2020 0 3:00:00 PM EDT MEDENT ([facility]) Outpatient Attender: CAITLIN HERNANDEZ MDConsultant: CAITLIN Lenz MD 06/15/2020 02:04:00 PM EDT - 06/15/2020 02:04:00 PM EDT [facility] Outpatient Attender: EZEQUIEL BAIG NP [facility] Eliezer lenz 06/01/2020 02:30:00 AM EDT - 06/01/2020 02:30:00 AM EDT [facility] ([facility]) Attender: EZEQUIEL BAIG NP 06/01/2020 12:00:00 AM EDT [facility] ([facility]) Extended Individual Psychotherapy - 45 min Attender: [facility] 05/24/2020 02:00:00 AM EDT - 05/24/2020 02:00:00 AM EDT [facility] ([facility]) Attender: Ericka Michelle 05/24/2020 12:00:00 AM EDT [facility] ([facility]) Extended Individual Psychotherapy - 45 min Attender: Ericka Miguel Angel [facility] 05/09/2020 02:00:00 AM EST - 05/09/2020 02:00:00 AM EST [facility] ([facility]) Attender: Ericka Michelle 05/09/2020 12:00:00 AM EST [facility] ([facility]) Outpatient Attender: EZEQUIEL BAIG NP [facility] Eliezer lenz 04/27/2020 11:00:00 AM EST - 04/27/2020 11:00:00 AM EST [facility] ([facility]) ( ESTOB) enter Est OB [address] [place] [address] 04/27/2020 12:00:00 AM EST eCW1 ([facility]) Attender: EZEQUIEL BAIG NP 04/27/2020 12:00:00 AM EST [facility] ([facility]) Extended Individual Psychotherapy - 45 min Attender: Ericka Miguel Angel [facility] 04/25/2020 10:00:00 AM EST - 04/25/2020 10:00:00 AM EST [facility] ([facility]) Attender: Ericka Michelle 04/25/2020 12:00:00 AM EST [facility] ([facility]) Extended Individual Psychotherapy - 45 min Attender: Ericka Michelle [facility] 04/11/2020 11:00:00 AM EST - 04/11/2020 11:00:00 AM EST [facility] ([facility]) Attender: Ericka Michelle 04/11/2020 12:00:00 AM EST [facility] ([facility]) ( ESTOB) [facility] Est OB [address] [place] [address] 04/04/2020 12:00:00 AM EST eCW1 ([facility]) ( COB) [facility] Complicated OB [address] [place] [address] 03/31/2020 12:00:00 AM EST eCW1 ([facility]) Extended Individual Psychotherapy - 45 min Attender: Ericka Michelle [facility] 03/24/2020 02:00:00 AM EST - 03/24/2020 02:00:00 AM EST [facility] ([facility]) Attender: Ericka Michelle 03/24/2020 12:00:00 AM EST [facility] ([facility]) ( ESTOB) [facility] Est OB [address] [place] [address] 03/23/2020 12:00:00 AM EST eCW1 ([facility]) Outpatient Attender: EZEQUIEL BAIG NP [facility] delfin 03/21/2020 11:00:00 AM EST - 03/21/2020 11:00:00 AM EST [facility] ([facility]) [place] [address] [address] 03/21/2020 12:00:00 AM EST eCW1 ([facility]) Attender: EZEQUIEL BAIG NP 03/21/2020 12:00:00 AM EST [facility] ([facility]) Extended Individual Psychotherapy - 45 min Attender: Ericka Michelle [facility] 03/17/2020 11:00:00 AM EST - 03/17/2020 11:00:00 AM EST [facility] Att[facility]: Ericka Michelle 03/17/2020 12:00:00 AM EST [facility] ([facility]) ( ESTOB) [facility] Est OB [address] [place] [address] 03/16/2020 12:00:00 AM EST eCW1 ([facility]) [place] [address] [address] 03/10/2020 12:00:00 AM EST eCW1 ([facility]) ( ESTOB) [facility] Est OB [address] [place] [address] 03/08/2020 12:00:00 AM EST eCW1 ([facility]) Extended Individual Psychotherapy - 45 min Attender: Ericka Michelle [facility] 03/06/2020 01:00:00 AM EST - 03/06/2020 01:00:00 AM EST [facility] ([facility]) Attender: Ericka Michelle 03/06/2020 12:00:00 AM EST [facility] ([facility]) Outpatient Referrer: PROVIDER SYSTEM IN 03/02/2020 1 0:20:00 AM EST shingles with occular involvement [facility] shingles with occular involvement [place] [address] [address] 02/28/2020 12:00:00 AM EST eCW1 ([facility]) ( [place]) [facility] Nurse Visit [address] [place] [address] 02/28/2020 12:00:00 AM EST eCW1 ([facility]) ( ESTOB) enter Est OB [address] [place] [address] 02/21/2020 12:00:00 AM EST eCW1 ([facility]) Extended Individual Psychotherapy - 45 min Attender: Ericka Michelle [facility] 02/11/2020 10:00:00 AM EST - 02/11/2020 10:00:00 AM EST [facility] ([facility]) Attender: Ericka Michelle 02/11/2020 12:00:00 AM EST [facility] ([facility]) Outpatient Attender: EZEQUIEL BAIG NP [facility] Eliezer lenz 01/25/2020 10:00:00 AM EST - 01/25/2020 10:00:00 AM EST [facility] ([facility]) Extended Individual Psychotherapy - 45 min Attender: [facility] 01/25/2020 09:00:00 AM EST - 01/25/2020 09:00:00 AM EST [facility] ([facility]) Attender: EZEQUIEL BAIG NP 01/25/2020 12:00:00 AM EST [facility] ([facility]) Attender: Ericka Michelle 01/25/2020 12:00:00 AM EST [facility] ([facility]) ( ESTOB) [facility] Est OB [address] [place] [address] 01/24/2020 12:00:00 AM EST eCW1 ([facility]) Unknown [address] [facility] [address] 01/21/2020 12:00:00 AM EST eCW1 ([facility]) Extended Individual Psychotherapy - 45 min Attender: Ericka Michelle [facility] 01/10/2020 10:00:00 AM EST - 01/10/2020 10:00:00 AM EST [facility] ([facility]) Attender: Ericka Michelle 01/10/2020 12:00:00 AM EST [facility] ([facility]) ( ESTOB) [facility] Est OB [address] [place] [address] 01/07/2020 12:00:00 AM EST eCW1 ([facility]) Outpatient Attender: EZEQUIEL BAIG NP [facility] Eliezer lenz 12/30/2019 10:30:00 AM EDT - 12/30/2019 10:30:00 AM EDT [facility] ([facility]) Attender: EZEQUIEL BAIG NP 12/30/2019 12:00:00 AM EDT [facility] ([facility]) Brief Individual Psychotherapy - 30 min Attender: Ericka smith [facility] 12/16/2019 11:00:00 AM EDT - 12/16/2019 11:00:00 AM EDT [facility] ([facility]) Attender: Ericka Mcguireus 12/16/2019 12:00:00 AM EDT [facility] ([facility]) ( ESTOB) enter Est OB [address] [place] [address] 12/08/2019 12:00:00 AM EDT eCW1 ([facility]) Outpatient Attender: EZEQUIEL BAIG NP [facility] Eliezer lenz 12/02/2019 11:15:00 AM EDT - 12/02/2019 11:15:00 AM EDT [facility] ([facility]) Attender: EZEQUIEL BAIG NP 12/02/2019 12:00:00 AM EDT [facility] ([facility]) Extended Individual Psychotherapy - 45 min Attender: Ericka Michelle [facility] 11/30/2019 11:00:00 AM EDT - 11/30/2019 11:00:00 AM EDT [facility] ([facility]) Attender: Ericka Miguel Angel 11/30/2019 12:00:00 AM EDT [facility] ([facility]) Outpatient Attender: Mirtha Manley MDReferrer: CAITLIN Lenz MD SJP.[email or web address] 11/11/2019 12:00:00 AM EDT [facility] Extended Individual Psychotherapy - 45 min Attender: [facility] 11/09/2019 11:00:00 AM EDT - 11/09/2019 11:00:00 AM EDT [facility] ([facility]) Attender: Ericka Michelle 11/09/2019 12:00:00 AM EDT [facility] ([facility]) Outpatient Attender: EZEQUIEL BAIG NP [facility] Eliezer lenz 11/04/2019 09:30:00 AM EDT - 11/04/2019 09:30:00 AM EDT [facility] ([facility]) Attender: EZEQUIEL BAIG NP 11/04/2019 12:00:00 AM EDT [facility] ([facility]) Functional Status Immunizations Vaccine Date Status Description Data Source(s) COVID-19 VACCINE Mayra 07/24/2020 12:00:00 AM EDT completed [place] Vaccine Series Complete: YESThis Data wa s Submitted to [facility] Via [employer]. Medications Medication Brand Name Start Date Product Form Dose Route Admi nistrative Instructions Pharmacy Instructions Status Indications Reaction Description Data Source(s) Aimovig 140 MG/ML SOAJ [id number] 09/16/2020 12:00:00 AM EDT active INJECT 140MG UNDER THE SKIN ONCE A MONTH [facility] pregabalin 75 MG Oral Capsule pregabalin (LYRICA) 75 M G capsule pregabalin (LYRICA) 75 MG capsule 08/18/2020 12:00:00 AM EDT active TAKE ONE CAPSULE BY MOUTH TWO TIMES A DAY MAXIMUM DAILY DOSE 2 CAPS [facility] Escitalopram 10 MG Oral Tablet [Lexapro] Lexapro 07/06/2020 12 :00:00 AM EDT 10 mg by mouth completed <td ID="Me dicationRxNorm_1">411248</td><td ID="MedicationMedication_1">Lexapro</td><td ID="MedicationRoute_1">by mouth</td><td ID="MedicationRouteConcept_1">L69107</td><td ID="MedicationStartDate_1">07/06/2020</td><td ID="MedicationStopDate_1">09/04/2020</td><td ID="MedicationDosageFrequency_1">once a day</td><td ID="MedicationDuration_1">30</td><td ID="MedicationFormulaStrength_1">10 mg</td><td ID="MedicationDosageForm_1">tablet</td><td ID="MedicationDosageFormCode_1"></td><td ID="MedicationDosageDescription_1"></td><td ID="MedicationMedicationId_1">[id number]</td><td ID="MedicationAccount_1">[id number]</td><td ID="MedicationNpid_1">[id number]</td><td ID="MedicationAuthorFirstName_1">Ezequiel</td><td ID="MedicationAuthorLastName_1">Geoff</td><td ID="MedicationTaxonomyCode_1">[id number]</td><td ID="MedicationTaxonomyDesc_1">Nurse Practitioner</td><td ID="MedicationPhoneNumber_1">[phone]</td> [facility] ([facility]) Aimovig Aimovig 07/06/2020 12:00:00 AM EDT SUBCUTANEOUS active MEDENT ([facility]) Ketorolac (Toradol) Inj 30MG/ML 06/15/2020 12:00:00 AM EDT completed MEDENT ([facility]) Medication administered onsite Escitalopram 5 MG Oral Tablet [Lexapro] Lexapro 05/04/2020 12: 00:00 AM EST 5 mg by mouth completed <td ID="Me dicationRxNorm_2">225276</td><td ID="MedicationMedication_2">Lexapro</td><td ID="MedicationRoute_2">by mouth</td><td ID="MedicationRouteConcept_2">Z00002</td><td ID="MedicationStartDate_2">05/04/2020</td><td ID="MedicationStopDate_2">06/03/2020</td><td ID="MedicationDosageFrequency_2">once a day</td><td ID="MedicationDuration_2">30</td><td ID="MedicationFormulaStrength_2">5 mg</td><td ID="MedicationDosageForm_2">tablet</td><td ID="MedicationDosageFormCode_2"></td><td ID="MedicationDosageDescription_2"></td><td ID="MedicationMedicationId_2">[id number]</td><td ID="MedicationAccount_2">[id number]</td><td ID="MedicationNpid_2">[id number]</td><td ID="MedicationAuthorFirstName_2">Ezequiel</td><td ID="MedicationAuthorLastName_2">Geoff</td><td ID="MedicationTaxonomyCode_2">[id number]</td><td ID="MedicationTaxonomyDesc_2">Nurse Practitioner</td><td ID="MedicationPhoneNumber_2">[phone]</td> [facility] ([facility]) valacyclovir 500 MG Oral Tablet [Valtrex] Valtrex 500 MG Marisabel trex 500 MG 04/27/2020 12:00:00 AM EST 1.0 {tablet} suspended Valtrex 500 MG eCW1 ([facility]) valacyclovir 500 MG Oral Tablet [Valtrex] Valtrex 500 MG Marisabel trex 500 MG 04/27/2020 12:00:00 AM EST 1.0 {tablet} active Valtrex 500 MG eCW1 ([facility]) valacyclovir 500 MG Oral Tablet [Valtrex] Valtrex 500 MG Marisabel trex 500 MG 04/27/2020 12:00:00 AM EST 1.0 {tablet} suspended Valtrex 500 MG eCW1 ([facility]) valacyclovir 500 MG Oral Tablet [Valtrex] Valtrex 500 MG Marisabel trex 500 MG 04/27/2020 12:00:00 AM EST 1.0 {tablet} active Valtrex 500 MG eCW1 ([facility]) valacyclovir 500 MG Oral Tablet [Valtrex] Valtrex 500 MG Marisabel trex 500 MG 04/27/2020 12:00:00 AM EST 1.0 {tablet} suspended Valtrex 500 MG eCW1 ([facility]) valacyclovir 500 MG Oral Tablet [Valtrex] Valtrex 500 MG Marisabel trex 500 MG 04/27/2020 12:00:00 AM EST 1.0 {tablet} suspended Valtrex 500 MG eCW1 ([facility]) valacyclovir 500 MG Oral Tablet [Valtrex] Valtrex 500 MG Marisabel trex 500 MG 04/27/2020 12:00:00 AM EST 1.0 {tablet} suspended Valtrex 500 MG eCW1 ([facility]) valacyclovir 500 MG Oral Tablet [Valtrex] Valtrex 500 MG Marisabel trex 500 MG 04/27/2020 12:00:00 AM EST 1.0 {tablet} suspended Valtrex 500 MG eCW1 ([facility]) valacyclovir 500 MG Oral Tablet [Valtrex] Valtrex 500 MG Marisabel trex 500 MG 04/27/2020 12:00:00 AM EST 1.0 {tablet} suspended Valtrex 500 MG eCW1 ([facility]) Sumatriptan 100 MG Oral Tablet Sumatriptan Succinate 1 00 MG Sumatriptan Succinate 100 MG 04/04/2020 12:00:00 AM EST a ctive Sumatriptan Succinate 100 MG eCW1 ([facility]) Metronidazole 500 MG Oral Tablet Metronidazole 500 MG 2020 12:00:00 AM EST 1.0 {tablet} active Metronidazo le 500 MG eCW1 ([facility]) Metronidazole 500 MG Oral Tablet Metronidazole 500 MG 2020 12:00:00 AM EST 1.0 {tablet} suspended Metronid azole 500 MG eCW1 ([facility]) Metronidazole 500 MG Oral Tablet Metronidazole 500 MG 2020 12:00:00 AM EST 1.0 {tablet} active Metronidazo le 500 MG eCW1 ([facility]) Metronidazole 500 MG Oral Tablet Metronidazole 500 MG 2020 12:00:00 AM EST 1.0 {tablet} active Metronidazo le 500 MG eCW1 ([facility]) Metronidazole 500 MG Oral Tablet Metronidazole 500 MG 2020 12:00:00 AM EST 1.0 {tablet} suspended Metronid azole 500 MG eCW1 ([facility]) Acetaminophen 325 MG / butalbital 50 MG / Caffeine 40 MG Oral Capsule [Esgic] Esgic 50-325-40 MG Esgic 50-325-40 MG 02/28/2020 12:00:00 AM EST active Esgic 50-325-40 MG eCW1 ([facility]) Acetaminophen 325 MG / butalbital 50 MG / Caffeine 40 MG Oral Capsule [Esgic] Esgic 50-325-40 MG Esgic 50-325-40 MG 02/28/2020 12:00:00 AM EST active Esgic 50-325-40 MG eCW1 ([facility]) Acetaminophen 325 MG / butalbital 50 MG / Caffeine 40 MG Oral Capsule [Esgic] Esgic 50-325-40 MG Esgic 50-325-40 MG 02/28/2020 12:00:00 AM EST active Esgic 50-325-40 MG eCW1 ([facility]) Acetaminophen 325 MG / butalbital 50 MG / Caffeine 40 MG Oral Capsule [Esgic] Esgic 50-325-40 MG Esgic 50-325-40 MG 02/28/2020 12:00:00 AM EST active Esgic 50-325-40 MG eCW1 ([facility]) Acetaminophen 325 MG / butalbital 50 MG / Caffeine 40 MG Oral Capsule [Esgic] Esgic 50-325-40 MG Esgic 50-325-40 MG 02/28/2020 12:00:00 AM EST active Esgic 50-325-40 MG eCW1 ([facility]) Acetaminophen 325 MG / butalbital 50 MG / Caffeine 40 MG Oral Capsule [Esgic] Esgic 50-325-40 MG Esgic 50-325-40 MG 02/28/2020 12:00:00 AM EST active Esgic 50-325-40 MG eCW1 ([facility]) Acetaminophen 325 MG / butalbital 50 MG / Caffeine 40 MG Oral Capsule [Esgic] Esgic 50-325-40 MG Esgic 50-325-40 MG 02/28/2020 12:00:00 AM EST active Esgic 50-325-40 MG eCW1 ([facility]) Amoxicillin 875 MG Oral Tablet amoxicillin (AMOXIL) 87 5 MG tablet amoxicillin (AMOXIL) 875 MG tablet 11/06/2019 12:00:00 AM EDT aborted TAKE ONE TABLET BY MOUTH EVERY TWELVE HOURS FOR 10 DAYS [facility] Cholecalciferol 1000 UNT Oral Tablet cho lecalciferol (VITAMIN D3) 25 MCG (1000 UT) tablet cholecalciferol (VITAMIN D3) 25 MCG (1000 UT) tablet 0 10/21/2019 12:00:00 AM EDT 1000 U Oral active Take 1,0 00 Units by mouth daily [facility] Aspirin 81 MG Delayed Release Oral Tablet aspirin EC 8 1 MG EC tablet aspirin EC 81 MG EC tablet 81 mg Oral aborted Take 81 mg by mouth daily [facility] Vit-Fe Fumarate-FA ( 1+1 PO) drug or medication Oral aborted Take by mouth [facility] Insurance Providers Payer name Policy type / Coverage type Policy ID Covered constitution party ID Covered constitution party's relationship to banda Policy Banda Plan Information [facility] Comm Plan Medicaid F [id number] SELF [id number] [facility] - [facility] P [id number] S [id number] Medicaid S [id number] S [id number] [facility] PLAN [facility] [id number] SP [id number] [facility] Care - [facility] P [id number] S [id number] Medicaid S [id number] [facility] I [id number] Self [id number] [facility] I [id number] Self [id number] [facility] I [id number] Self [id number] MEDICAID M [id number] Self [id number] [facility] [id number] SP [id number] [facility] COMMUNITY PLAN [facility] [id number] SP [id number] Medicaid S [id number] S [id number] [facility] [id number] SP [id number] Managed Care - Community Plan [facility] P [id number] S [id number] [facility] [id number] SP [id number] [facility] PLAN [facility] [id number] SP [id number] [employer] COMMUNITY PLAN MCDHMO [id number] SP [id number] [employer] COMMUNITY PLAN MCDHMO [id number] SP [id number] [facility] Health Maintenance Organization (HMO) [id number] Self [id number] [employer] COMMUNITY PLAN MCDHMO [id number] SP [id number] Managed Care - [facility] Community Plan P [id number] S [id number] [employer] COMMUNITY PLAN MCDHMO [id number] SP [id number] [employer] COMMUNITY PLAN MCDHMO [id number] SP [id number] Medicaid S [id number] S [id number] Managed Care - [facility] Community Plan P [id number] S [id number] [facility] MEDICAID [id number] Managed Care - [employer] Community Plan P [id number] S [id number] [facility] MEDICAID [id number] Paula [id number] [employer] COMMUNITY PLAN XIX [id number] 18 [id number] [facility] Communty Plan Medicaid [id number] Self [id number] [facility] Community Plan Commercial [id number] Self [id number] Excell [employer] Medigap Part B [id number] Self [id number] [facility] [place] [id number] 18 [id number] [facility] Plan Medigap Part B [id number] Self [id number] Formerly [facility] Community Plan Commercial [id number] Self [id number] [facility] PLAN [id number] 18 [id number] [facility] [id number] 18 [id number] [facility](MCAID) O [id number] S [id number] [facility] [place] Part B [id number] Self [id number] [facility] Commercial [id number] Self [id number] [facility] [place] [id number] 18 [id number] [facility] COMMUNITY [facility] [id number] SP [id number] [facility] [place] Part B [id number] Self [id number] [facility] Commercial [id number] Self [id number] [facility] O [id number] S [id number] HC AMERICHOICE XIX -HMO [id number] 18 [id number] [facility] O [id number] S [id number] MEDICAID - CLINIC [id number] [facility] AMERICHOICE O [id number] 18 [id number] MEDICAID-O/P [id number] 18 [id number] X [facility] [id number] Self [facility] P UNAVAILABLE S UNAVAILA BLE Medicaid S [id number] S [id number] [place] PLAN [id number] SP [id number] [facility] [id number] SP [id number] HMO BLUE [id number] SP [id number] [place] [id number] SP [id number] [facility] COMMUNTY PLAN [id number] 18 [id number] [facility] COMMUNITY PLAN XIX [id number] 18 [id number] [facility] O [id number] S [id number] [facility] COMMUNITY PLAN [id number] 18 [id number] UN[facility] AMERICHOICE XIX -HMO [id number] 18 [id number] UNHC AMERICHOICE XIX -HMO [id number] 18 [id number] UN[facility] AMERICHOICE XIX -HMO [id number] 18 [id number] [facility] COMMUNITY PLAN XIX [id number] 18 [id number] [facility] COMMUNTY PLAN [id number] 18 [id number] [facility] [id number] S [id number] Formerly [facility] Community Plan Commercial [id number] Self [id number] [facility] Communty Plan Medicaid [id number] Self [id number] Formerly [facility] Community Plan Commercial [id number] Self [id number] [facility] Communty Plan Medicaid [id number] Self [id number] Formerly [facility] Community Plan Commercial [id number] Self [id number] [facility] Communty Plan Medicaid [id number] Self [id number] Formerly [facility] Community Plan Commercial [id number] Self [id number] [facility] Communty Plan Medicaid [id number] Self [id number] [facility] Communty Plan Medicaid [id number] Self [id number] Formerly [facility] Community Plan Commercial [id number] Self [id number] [facility] Communty Plan Medicaid [id number] Self [id number] Formerly [facility] Community Plan Commercial [id number] Self [id number] [facility] HEA [id number] S 1 [id number] UNAVAILABLE UNAVAILA BLE [facility] HEA [id number] S 1 [id number] Formerly [facility] Community Plan Commercial [id number] Self [id number] [facility] Communty Plan Medicaid [id number] Self [id number] Problems, Conditions, and Diagnoses Code Display Name Description Problem Type Effective Dates Data Source(s) R55 Syncope and collapse Syncope and collapse Diagnosis 10/13/2020 09:32:45 AM EDT [facility] E66.01 Morbid (severe) obesity due to excess ca lories Morbid (severe) obesity due to excess ca Diagnosis 10/13/2020 09:32:45 AM EDT [facility] R07.89 Other chest pain Other chest pain Diagnosis 10/13/2020 09 :32:45 AM EDT [facility] Z1331 Encounter for screening for depression E ncounter for screening for depression Diagnosis 06/15/2020 02:04:00 PM EDT [facility] M545 Low back pain Low back pain Diagnosis 06/15/2020 02:04:00 PM EDT [facility] M7071 Other bursitis of hip, right hip Other bursitis of hip, right hip Diagnosis 06/15/2020 02:04:00 PM EDT [facility] shingles with occular involvement shingles with occula r involvement Diagnosis 03/02/2020 10:20:00 AM [facility] R07.9 Chest pain, unspecified Chest pain, unspecified Diagno sis 11/11/2019 10:34:12 AM EDT [facility] F14.20 Cocaine dependence, uncomplicated Stimul ant Use Disorder. 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 e Problem 11/03/2020 12:00:00 AM EDT eCW1 ([facility]) R55 Syncope Syncope [id number] 10/13/2020 12:00:00 AM ED T [facility] Z68.41 Body mass index 40+ - severely obese Bod y mass index (BMI) 40.0-44.9, adult Problem 03/31/2020 12:00:00 AM EST eCW1 ([facility]) O99.213 Obesity complicating , third tr imester Obesity complicating in third trimester Problem 03/23/2020 12:00:00 AM EST eCW1 ([facility]) O99.212 [id number] Obesity complicating in second trimester Problem 12/07/2019 12:00:00 AM EDT eCW1 ([facility]) Z34.80 care Supervision of other normal P [place] 12/07/2019 12:00:00 AM EDT eCW1 ([facility]) R07.89 Other chest pain Other chest pain [id number] 11/11/2019 12 :00:00 AM EDT [facility] Surgeries/Procedures Procedure Description Date Indications Data Source(s) Extended Individual Psychotherapy - 45 min 11/17/2020 12:00:00 AM EDT - 11/17/2020 12:00:00 AM EDT [facility] ([facility]) Extended Individual Psychotherapy - 45 min 12:00:00 AM EDT [facility] ([facility]) ECG ROUTINE ECG W/LEAST 12 LDS W/I&R <td>POCT AMB EKG</td><td>Routine</td><td>10/13/2020 10:22 AM EDT</td><td> Other chest pain Syncope, unspecified syncope type</td><td> </td> 10/13/2020 10:22:00 AM EDT Syncope, unspecified syncope typeOther chest pain [facility] Syncope, unspecified syncope type Other chest pain Extended Individual Psychotherapy - 45 min 09/18/2020 12:00:00 AM EDT - 09/18/2020 12:00:00 AM EDT [facility] ([facility]) Extended Individual Psychotherapy - 45 min 12:00:00 AM EDT [facility] ([facility]) Extended Individual Psychotherapy - 45 min 08/17/2020 12:00:00 AM EDT - 08/17/2020 12:00:00 AM EDT [facility] ([facility]) Extended Individual Psychotherapy - 45 min 12:00:00 AM EDT [facility] ([facility]) Extended Individual Psychotherapy - 45 min 07/25/2020 12:00:00 AM EDT - 07/25/2020 12:00:00 AM EDT [facility] ([facility]) Extended Individual Psychotherapy - 45 min 12:00:00 AM EDT [facility] ([facility]) Extended Individual Psychotherapy - 45 min 07/07/2020 12:00:00 AM EDT - 07/07/2020 12:00:00 AM EDT [facility] ([facility]) Extended Individual Psychotherapy - 45 min 12:00:00 AM EDT [facility] ([facility]) OFFICE OUTPATIENT VISIT 15 MINUTES 06/29/2020 12:00:00 AM EDT [facility] ([facility]) Extended Individual Psychotherapy - 45 min 06/20/2020 12:00:00 AM EDT - 06/20/2020 12:00:00 AM EDT [facility] ([facility]) Extended Individual Psychotherapy - 45 min 12:00:00 AM EDT [facility] ([facility]) BLOOD COUNT COMPLETE AUTO&AUTO DIFRNTL WBC COUNT <td>C BC AND DIFFERENTIAL</td><td>Routine</td><td>06/19/2020</td><td></td><td> </td> 06/19/2020 12:00:00 AM EDT [facility] BASIC METABOLIC PANEL CALCIUM TOTAL <td>BASIC METABOLI C PANEL</td><td>Routine</td><td>06/19/2020</td><td></td><td> </td> 06/19/2020 12:00:00 AM EDT [facility] Brief Emotional/Behav Assessment W/ Scoring Doc Per Standard Inst 06/15/2020 12:00:00 AM EDT [facility] ([facility]) OFFICE OUTPATIENT VISIT 15 MINUTES 06/15/2020 12:00:00 AM EDT [facility] ([facility]) MHC Telemed E/M Lvl 3--Est pt 06/01/2020 12:00:00 AM EDT - 06/01/2020 12:00:00 AM EDT [facility] ([facility]) MHC Telemed E/M Lvl 3--Est pt 06/01/2020 12:00:00 AM E DT [facility] ([facility]) Extended Individual Psychotherapy - 45 min 05/24/2020 12:00:00 AM EDT - 05/24/2020 12:00:00 AM EDT [facility] ([facility]) Extended Individual Psychotherapy - 45 min 12:00:00 AM EDT [facility] ([facility]) Extended Individual Psychotherapy - 45 min 05/09/2020 12:00:00 AM EST - 05/09/2020 12:00:00 AM EST [facility] ([facility]) Extended Individual Psychotherapy - 45 min 12:00:00 AM EST [facility] ([facility]) OFFICE OUTPATIENT VISIT 15 MINUTES 04/27 12:00:00 AM EST - 04/27/2020 12:00:00 AM EST [facility] ([facility]) OFFICE OUTPATIENT VISIT 15 MINUTES 04/27/2020 12:00:00 AM EST [facility] ([facility]) Extended Individual Psychotherapy - 45 min 04/25/2020 12:00:00 AM EST - 04/25/2020 12:00:00 AM EST [facility] ([facility]) Extended Individual Psychotherapy - 45 min 12:00:00 AM EST [facility] ([facility]) Extended Individual Psychotherapy - 45 min 04/11/2020 12:00:00 AM EST - 04/11/2020 12:00:00 AM EST [facility] ([facility]) Extended Individual Psychotherapy - 45 min 12:00:00 AM EST [facility] ([facility]) NONSTRESS TEST 03/31/2020 12:00:00 AM EST eCW1 ([facility]) Extended Individual Psychotherapy - 45 min 03/24/2020 12:00:00 AM EST - 03/24/2020 12:00:00 AM EST [facility] ([facility]) Extended Individual Psychotherapy - 45 min 12:00:00 AM EST [facility] ([facility]) NONSTRESS TEST 03/23/2020 12:00:00 AM EST eCW1 ([facility]) MHC Telemed E/M Lvl 3--Est pt 03/21/2020 12:00:00 AM EST - 03/21/2020 12:00:00 AM EST [facility] ([facility]) Psychotherapy ADD ON - 30 Minutes 03/21/2020 12:00:00 AM EST [facility] ([facility]) MHC Telemed E/M Lvl 3--Est pt 03/21/2020 12:00:[address] [facility] ([facility]) Extended Individual Psychotherapy - 45 min 03/17/2020 12:00:00 AM EST - 03/17/2020 12:00:00 AM EST [facility] ([facility]) Extended Individual Psychotherapy - 45 min 12:00:00 AM EST [facility] ([facility]) NONSTRESS TEST 03/16/2020 12:00:00 AM EST eCW1 ([facility]) NONSTRESS TEST 03/08/2020 12:00:00 AM EST eCW1 ([facility]) Extended Individual Psychotherapy - 45 min 03/06/2020 12:00:00 AM EST - 03/06/2020 12:00:00 AM EST [facility] ([facility]) Extended Individual Psychotherapy - 45 min 12:00:00 AM EST [facility] ([facility]) Nurse Visit Blood Pressure Check 02/28/2020 12:00:00 A M EST eCW1 ([facility]) Extended Individual Psychotherapy - 45 min 02/11/2020 12:00:00 AM EST - 02/11/2020 12:00:00 AM EST [facility] ([facility]) Extended Individual Psychotherapy - 45 min 0 12:00:00 AM EST [facility] ([facility]) OFFICE OUTPATIENT VISIT 15 MINUTES 01/24 12:00:00 AM EST - 01/25/2020 12:00:00 AM EST [facility] ([facility]) OFFICE OUTPATIENT VISIT 15 MINUTES 01/25/2020 12:00:00 AM EST [facility] ([facility]) Extended Individual Psychotherapy - 45 min 01/25/2020 12:00:00 AM EST - 01/25/2020 12:00:00 AM EST [facility] ([facility]) Extended Individual Psychotherapy - 45 min 0 12:00:00 AM EST [facility] ([facility]) Extended Individual Psychotherapy - 45 min 01/10/2020 12:00:00 AM EST - 01/10/2020 12:00:00 AM EST [facility] ([facility]) Extended Individual Psychotherapy - 45 min 0 12:00:00 AM EST [facility] ([facility]) OFFICE OUTPATIENT VISIT 15 MINUTES 12/29 12:00:00 AM EDT - 12/30/2019 12:00:00 AM EDT [facility] ([facility]) OFFICE OUTPATIENT VISIT 15 MINUTES 12/30/2019 12:00:00 AM EDT [facility] ([facility]) Brief Individual Psychotherapy - 30 min 12/16/2019 12:00:00 AM EDT - 12/16/2019 12:00:00 AM EDT [facility] ([facility]) Brief Individual Psychotherapy - 30 min 12/16/2019 12: 00:00 AM EDT [facility] ([facility]) MHC Telemed E/M Lvl 3--Est pt 12/02/2019 12:00:00 AM EDT - 12/02/2019 12:00:00 AM EDT [facility] ([facility]) Psychotherapy ADD ON - 30 Minutes 12/02/2019 12:00:00 AM EDT [facility] ([facility]) MHC Telemed E/M Lvl 3--Est pt 12/02/2019 12:00:00 AM E DT [facility] ([facility]) Extended Individual Psychotherapy - 45 min 11/30/2019 12:00:00 AM EDT - 11/30/2019 12:00:00 AM EDT [facility] ([facility]) Extended Individual Psychotherapy - 45 min 0 12:00:00 AM EDT [facility] ([facility]) Extended Individual Psychotherapy - 45 min 11/09/2019 12:00:00 AM EDT - 11/09/2019 12:00:00 AM EDT [facility] ([facility]) Extended Individual Psychotherapy - 45 min 0 12:00:00 AM EDT [facility] ([facility]) MHC Telemed E/M Lvl 3--Est pt 11/04/2019 12:00:00 AM EDT - 11/04/2019 12:00:00 AM EDT [facility] ([facility]) Psychotherapy ADD ON - 30 Minutes 11/04/2019 12:00:00 AM EDT [facility] ([facility]) [facility] Telemed E/M Lvl 3--Est pt 11/04/2019 12:00:00 AM E DT [facility] ([facility]) Results ID Date Data Source [id number] 12/04/2020 08:04:00 PM EDT [facility] ([facility]) Name Value Range Interpretation Code Description Data Rema rce(s) Supporting Document(s) White Blood Count 9.7 10 4.0-10.0 Normal (applies to non-numeri c results) [facility] ([facility]) Hematocrit 42.0 % 36.0-47.0 Normal (applies to non-numeric resul ts) [facility] ([facility]) Hemoglobin 14.2 g/dL 12.0-15.5 Normal (applies to non-numeric resul ts) [facility] ([facility]) Red Blood Count 4.89 10 4.00-5.40 Normal (applies to non-numeric results) [facility] ([facility]) Mean Corpuscular Volume 85.9 fl 80.0-96.0 Normal ( applies to non-numeric results) [facility] ([facility]) Mean Corpuscular Hemoglobin 29.0 pg 27.0-33.0 Norm al (applies to non-numeric results) [facility] ([facility]) Mean Corpuscular HGB Conc 33.8 g/dL 32.0-36.5 Normal (applies to non-numeric results) [facility] ([facility]) Red Cell Distribution Width 13.4 % 11.5-14.5 Norm al (applies to non-numeric results) [facility] ([facility]) Platelet Count, Automated 209 10 150-450 Normal (applies to non-numeric results) [facility] ([facility]) [place] % 4.8 % 2.0-8.0 Normal (applies to non-numeric resul ts) [facility] ([facility]) Lymph % 11.0 % 24.0-44.0 Below low normal [facility] ( [facility]) Neutrophils % 81.9 % 36.0-66.0 Above high normal [facility] ([facility]) Baso % 0.7 % 0.0-1.0 Normal (applies to non-numeric resul ts) [facility] ([facility]) Immature Granulocyte % 0.4 % 0-3.0 Normal (applies to non-n umeric results) [facility] ([facility]) Eos % 1.2 % 0.0-3.0 Normal (applies to non-numeric resul ts) [facility] ([facility]) Neutrophils # 7.9 10 1.5-8.5 Normal (applies to non-numeric re sults) [facility] ([facility]) Nucleated Red Blood Cell % 0.0 % 0-0 Normal (applies to n on-numeric results) [facility] ([facility]) Eos # 0.1 10 0.0-0.5 Normal (applies to non-numeric resul ts) [facility] ([facility]) Lymph # 1.1 10 1.5-5.0 Below low normal [facility] ( [facility]) [place] # 0.5 10 0.0-0.8 Normal (applies to non-numeric resul ts) [facility] ([facility]) Baso # 0.1 10 0.0-0.2 Normal (applies to non-numeric resul ts) [facility] ([facility]) ID Date Data Source [id number] 12/04/2020 08:04:00 PM EDT [facility] ([facility]) Name Value Range Interpretation Code Description Data Rema rce(s) Supporting Document(s) CK-MB Value Mass 1.5 ng/mL Normal (applies to non-numeric results) [facility] ([facility]) MB/CK Relative Index 2.08 Normal (applies to non-num prashanth results) [facility] ([facility]) <content>DIAGNOSIS CRITERIA</content>
<content>MMB ng/ml Relative Index (RI)</content>
<content>NON-AMI < or = 5 N/A</content>
<content>RAYA ZONE > 5 < or = 4</content>
<content>AMI > 5 > 4</content>
<content></content> CPK Creatine Phosphokinase 72 U/L 26-192 [place] l (applies to non-numeric results) [facility] ([facility]) Troponin I Laboratory test result Normal (applies to non-n umeric results) [facility] ([facility]) <content>Troponin I Reference Interval f or [employer] LOCI:</content>
<content></content>
<content>99th Percentile= 0.00-0.045 ng/ml</content>
<content></content>
<content>Risk Stratification:</content>
<content><= 0.10 ng/ml Decreased Risk for Adverse Clinical</content>
<content>Events.</content>
<content>0.10-1.50 ng/ml Increased Risk for Adverse Clinical</content>
<content>Events. Evaluation of additional</content>
<content>criterion and/or repeat testing in 2-6</content>
<content>hours is suggested to rule out myocardial</content>
<content>damage.</content>
<content>>= 1.50 ng/ml Indicative of Myocardial Injury.</content>
<content></content> ID Date Data Source [id number] 12/04/2020 08:04:00 PM EDT [facility] ([facility]) Name Value Range Interpretation Code Description Data Rema rce(s) Supporting Document(s) Glucose, Fasting 104 mg/dL 70-100 Above high normal [facility] Glomerular Filtration Rate Laboratory test result Normal (applies to non- numeric results) [facility]) <content>Units are mL/min/1.73 m2</content>
<content></content>
<content>Chronic Kidney Disease Staging per NKF:</content>
<content></content>
<content>Stage I & II GFR >=60 Normal to Mildly Decreased</content>
<content>Stage III GFR 30- 59 Moderately Decreased</content>
<content>Stage IV GFR 15-29 Severely Decreased</content>
<content>Stage V GFR <15 Very Little GFR Left</content>
<content>ESRD GFR <15 on ACCOUNTS OFFICER</content>
<content></content> Blood Urea Nitrogen 10 mg/dL 7-18 Normal (applies to non-nume zeny results) [facility] ([facility]) Creatinine For GFR 0.91 mg/dL 0.55-1.30 Normal (applies to non -numeric results) [facility] ([facility]) Sodium Level 142 meq/L 136-145 Normal (applies to non-numeric res ults) [facility] ([facility]) Potassium Serum 3.8 meq/L 3.5-5.1 Normal (applies to non-numeric results) [facility] ([facility]) Carbon Dioxide Level 26 meq/L 21-32 Normal (applies to non-num prashanth results) [facility] ([facility]) Chloride Level 108 meq/L 98-107 Above high normal [facility] ([facility]) Anion Gap 8 meq/L 8-16 Normal (applies to non-numeric resul ts) [facility] ([facility]) Calcium Level 9.1 mg/dL 8.5-10.1 Normal (applies to non-numeric re sults) [facility] ([facility]) Alt/SGPT 34 U/L 12-78 Normal (applies to non-numeric resul ts) [facility] ([facility]) Ast/Sgot 21 U/L 7-37 Normal (applies to non-numeric resul ts) [facility] ([facility]) Alkaline Phosphatase 89 U/L 45-117 Normal (applies to non-num prashanth results) [facility] ([facility]) Bilirubin,Total 0.5 mg/dL 0.2-1.0 Normal (applies to non-numeric results) [facility] ([facility]) Total Protein 7.5 GM/DL 6.4-8.2 Normal (applies to non-numeric re sults) [facility] ([facility]) Albumin 3.5 GM/DL 3.2-5.2 Normal (applies to non-numeric resul ts) [facility] ([facility]) Albumin/Globulin Ratio 0.9 1.2-2.2 Below low normal [facility] ([facility]) ID Date Data Source [id number] 12/04/2020 05:40:00 PM EDT [facility] ([facility]) Name Value Range Interpretation Code Description Data Rema rce(s) Supporting Document(s) Respiratory Panel Laboratory test result [facility] ([facility]) This respiratory PCR panel detects Influ larry [...] RESPIRATORY SYNCYTIAL VIRUS ID Date Data Source [id number] 12/04/2020 05:40:00 PM [facility]T [facility] Name Value Range Interpretation Code Description Data Rema rce(s) Supporting Document(s) SARS-CoV-2 (COVID 19) NEGATIVE - SARS-CoV-2 (COVID19) [facility] This lab was ordered by [facility] a nd reported by [facility]. ID Date Data Source [id number] 10/21/2020 10:52:00 AM EDT [facility] ([facility]) Name Value Range Interpretation Code Description Data Rema rce(s) Supporting Document(s) U1 small nuclear ribonucleoprotein Ab [Presence] in Se rum Laboratory test result Normal (applies to non-numeric results) [facility] ([facility]) <content>Negative: <20 </content>
<content>Weak Positive: 20 - 39</content>
<content>Moderate Positive: 40 - 80</content>
<content>Strong Positive: > 80</content>
<content></content> Centromere protein B Ab [Units/volume] in Serum Laboratory test result 0.0-0.9 Normal (applies to non-numeric results) [facility] ([facility]) Specimen Comment: Test(s) [id number] BAR STEWARD Ab (RDL) Specimen Comment: was developed and its performance characteristics Specimen Comment: determined by [facility]. It has not been cleared or approved Specimen Comment: by the Food and Drug Administration. [place] extractable nuclear Ab [Units/volume] in Serum Laboratory test result Normal (applies to non-numeric results) [facility] ([facility]) <content>Negative: <20 </content>
<content>Weak Positive: 20 - 39</content>
<content>Moderate Positive: 40 - 80</content>
<content>Strong Positive: > 80</content>
<content></content> ID Date Data Source [id number] 10/21/2020 10:52:00 AM EDT [facility] ([facility]) Name Value Range Interpretation Code Description Data Rema rce(s) Supporting Document(s) Ssa Sjogrens A Laboratory test result 0.0-0.9 Normal (a pplies to non-numeric results) [facility] ([facility]) SSB Sjogrens B Laboratory test result 0.0-0.9 Normal (a pplies to non-numeric results) [facility] ([facility]) ID Date Data Source [id number] 10/21/2020 10:52:00 AM EDT [facility] ([facility]) Name Value Range Interpretation Code Description Data Rema rce(s) Supporting Document(s) Cardiolipin Iga Antibody Laboratory test result 0-11 Normal (applies to non- numeric results) [facility] ([facility]) <content>Negative: <12</con tent>
<content>Indeterminate: 12 - 20</content>
<content>Low-Med Positive: >20 - 80</content>
<content>High Positive: >80</content>
<content></content> Cardiolipin Igg Antibody 10 GPLU/mL 0-14 Normal (applies to non-numeric results) [facility] Services) <content>Negative: <15</con tent>
<content>Indeterminate: 15 - 20</content>
<content>Low-Med Positive: >20 - 80</content>
<content>High Positive: >80</content>
<content></content> Cardiolipin Igm Antibody 9 MPLU/mL 0-12 Normal (applies to non-numeric results) [facility] ([facility]) <content>Negative: <13</con tent>
<content>Indeterminate: 13 - 20</content>
<content>Low-Med Positive: >20 - 80</content>
<content>High Positive: >80</content>
<content></content> ID Date Data Source [id number] 10/21/2020 10:52:00 AM EDT [facility] ([facility]) Name Value Range Interpretation Code Description Data Rema rce(s) Supporting Document(s) Histone Ab [Presence] in Serum 3.1 units 0.0-0.9 Above high [place] [facility] ([facility]) <content>Negative <1.0</c ontent>
<content>Weak Positive 1.0 - 1.5</content>
<content>Moderate Positive 1.6 - 2.5</content>
<content>Strong Positive >2.5</content>
<content></content> DNA double strand Ab [Units/volume] in Serum Laboratory test res ult Normal (applies to non-numeric results) [facility] ([facility]) Specimen Comment: Test(s) [id number] BAR STEWARD Ab (RDL) Specimen Comment: was developed and its performance characteristics Specimen Comment: determined by [facility]. It has not been cleared or approved Specimen Comment: by the Food and Drug Administration. Renée [facility] Laboratory test result [place] (applies to non-numeric results) [facility] ([facility]) <content>Negative <1:80</content>
<content>Borderline 1:80</content>
<content>Positive >1:80</content>
<content>ICAP nomenclature: AC-0</content>
<content>For more information about Hep-2 cell patterns use</content>
<content>ANApatterns.org, the official website for the</content>
<content>International Consensus on Antinuclear Antibody (RENÉE)</content>
<content>Patterns (ICAP).</content>
<content>Performed at: - [facility]</content>
<content>[address] [place] [address] [id number]</content>
<content>Ve Teacher: Pretty Swain MD, Phone: [phone]</content>
<content>Performed at: [facility]</content>
<content>[address] [place] [address] [id number]</content>
<content>Ve Teacher: Prabhakar Hudson MD, Phone: [phone]</content>
<content>Performed at: [facility]</content>
<content>[address] [place] [address] [id number]</content>
<content>Ve Teacher: Bora Wu MD, Phone: [phone]</content>
<content></content> SCL-70 extractable nuclear Ab [Units/volume] in Serum Labora tory test result 0.0-0.9 Normal (applies to non-numeric results) [facility] ([facility]) Specimen Comment: Test(s) [id number] BAR STEWARD Ab (RDL) Specimen Comment: was developed and its performance characteristics Specimen Comment: determined by [facility]. It has not been cleared or approved Specimen Comment: by the Food and Drug Administration. ID Date Data Source [id number] 10/21/2020 10:52:00 AM EDT [facility]) Name Value Range Interpretation Code Description Data Rema rce(s) Supporting Document(s) Beta-2 Glycoprotein I Loni Igg Laboratory test result 0-20 Normal (applies to non-numeric results) [facility]) Result Units: GPI IgG units . The reference interval reflects a 3SD or 99th percentile interval, which is thought to represent a potentially clinically significant result in accordance with the International Consensus Statement on the classification criteria for definitive antiphospholipid syndrome (APS). J Thromb Haem 2006;4:295-306. Beta-2 Glycoprotein I Loni Iga Laboratory test result 0-25 Normal (applies to non-numeric results) [facility]) Result Units: GPI IgA units . The reference interval reflects a 3SD or 99th percentile interval, which is thought to represent a potentially clinically significant result in accordance with the International Consensus Statement on the classification criteria for definitive antiphospholipid syndrome (APS). J Thromb Haem 2006;4:295-306. Beta-2 Glycoprotein I Loni Igm 10 0-32 Normal (chrystal lies to non-numeric results) [facility]) Result Units: GPI IgM units . The reference interval reflects a 3SD or 99th percentile interval, which is thought to represent a potentially clinically significant result in accordance with the International Consensus Statement on the classification criteria for definitive antiphospholipid syndrome (APS). J Thromb Haem 2006;4:295-306. ID Date Data Source [id number] 10/02/2020 12:55:00 PM EDT [facility]) Name Value Range Interpretation Code Description Data Rema rce(s) Supporting Document(s) Phosphate [Moles/volume] in Serum or Plasma 3.6 mg/dL 2.5- 4.9 Normal (applies to non-numeric results) [facility] ) <content>note:<nlbl:demographic_changed> </content>
<content></content> Iron [Mass/volume] in Serum or Plasma 50 ug/dL 50-170 Normal (applies to non- numeric results) [facility] ([facility]) <content>note:<nlbl:demographic_changed> </content>
<content></content> Creatine kinase [Enzymatic activity/volume] in Serum or Plasma 4 3 U/L 26-192 Normal (applies to non-numeric results) [facility] ([facility]) <content>note:<nlbl:demographic_changed> </content>
<content></content> Magnesium [Mass/volume] in Serum or Plasma 2.1 mg/dL 1.8-2 .4 Normal (applies to non-numeric results) [facility] ([facility]) <content>note:<nlbl:demographic_changed> </content>
<content></content> Complement C3 [Mass/volume] in Serum or Plasma 148 mg/dL 9 0-180 Normal (applies to non-numeric results) [facility] <content>note:<nlbl:demographic_changed> </content>
<content></content> Complement C4 [Mass/volume] in Serum or Plasma 23 mg/dL 1 0-40 Normal (applies to non-numeric results) [facility] ([facility] ) <content>note:<nlbl:demographic_changed> </content>
<content></content> Thyrotropin [Units/volume] in Serum or Plasma 0.828 uIU/ML 0. 358-3.740 Normal (applies to non-numeric results) [facility] ([facility]) <content>note:<nlbl:demographic_changed> </content>
<content></content> Cobalamin (Vitamin B12) [Mass/volume] in Serum or Plasma 710 pg/ mL 247-911 Normal (applies to non-numeric results) [facility] ([facility]) VITAMIN B12 NORMAL RANGE NORMAL 247 - 911 PG/ML INDETERMINATE 211 - 246 PG/ML DEFICIENT LESS THAN 211 PG/ML Calcidiol [Mass/volume] in Serum or Plasma 24.7 ng/mL 30.0- 100.0 Below low normal [facility] ([facility]) <content>note:<nlbl:demographic_changed> </content>
<content></content> C reactive protein [Mass/volume] in Serum or Plasma by High sensitivity method 1.67 mg/dL 0.00-0.30 Above high normal [facility] ([facility]) <content>note:<nlbl:demographic_changed> </content>
<content></content> ID Date Data Source [id number] 10/02/2020 12:54:00 PM EDT [facility] ([facility]) Name Value Range Interpretation Code Description Data Rema rce(s) Supporting Document(s) Complement total hemolytic CH50 [Units/volume] in Seru m or Plasma Laboratory test result Normal (applies to non-numeric results) [facility] ([facility]) Age Male Female 1 - 30 days [...] range values. Performed at: RN - [facility] [address] [id number] Ve Teacher: Pretty Swain MD, Phone: [phone] Erythrocyte sedimentation rate by Westergren method 45 mm/hr 0-20 Above high normal [facility] ([facility]) ID Date Data Source [id number] 10/02/2020 12:54:00 PM EDT [facility] ([facility]) Name Value Range Interpretation Code Description Data Rema rce(s) Supporting Document(s) PTT Lupus Type Anticoag Screen 1.4 0-1.2 Above high [place] [facility] ([facility]) RESULT IS 1.2 OR GREATER, FURTHER TESTING [...] a specific inhibitor. ID Date Data Source [id number] 10/02/2020 12:54:00 PM EDT [facility] ([facility]) Name Value Range Interpretation Code Description Data Rema rce(s) Supporting Document(s) Lupus Confirm Stago 1.27 0.00-1.20 Above high normal [facility] ([facility]) NORMALIZED RATIO IS EQUAL TO OR GREATER THAN 1.20 LA IS PRESENT. SPECIMEN WILL BE SENT TO [employer] [facility] [place], [address] [place]. [address] REFERE [facility] FOR CONFIRMATION. ID Date Data Source [id number] 10/02/2020 12:54:00 PM EDT [facility] ([facility]) Name Value Range Interpretation Code Description Data Rema rce(s) Supporting Document(s) Hexagonal Phase Phospholipid 0 sec 0-11 Normal (appl ies to non-numeric results) [facility] ([facility]) Laboratory test finding (navigational concept) Laboratory test r esult Normal (applies to non-numeric results) [facility] ([facility]) . Results do not indicate the presence of a Lupus Anticoagulant: abnormal high screening results (PTT-LA, dRVVT, mixing studies), may be due to medication (heparin, warfarin, aspirin), Factor inhibitors, anticardiolipin antibodies, or poor specimen integrity. Performed at: BN - [facility] [id number] Ve Teacher: Prabhakar Hudson MD, Phone: [phone] ID Date Data Source [id number] 10/02/2020 12:54:00 PM EDT [facility] ([facility]) Name Value Range Interpretation Code Description Data Rema rce(s) Supporting Document(s) Red Blood Count 4.54 10 4.00-5.40 Normal (applies to non-numeric results) [facility] ([facility]) White Blood Count 7.8 10 4.0-10.0 Normal (applies to non-numeri c results) [facility] ([facility]) Hematocrit 39.2 % 36.0-47.0 Normal (applies to non-numeric resul ts) [facility] ([facility]) Hemoglobin 12.9 g/dL 12.0-15.5 Normal (applies to non-numeric resul ts) [facility] ([facility]) Mean Corpuscular Volume 86.3 fl 80.0-96.0 Normal ( applies to non-numeric results) [facility] ([facility]) Mean Corpuscular HGB Conc 32.9 g/dL 32.0-36.5 Normal (applies to non-numeric results) [facility] ([facility]) Mean Corpuscular Hemoglobin 28.4 pg 27.0-33.0 Norm al (applies to non-numeric results) [facility] ([facility]) Red Cell Distribution Width 13.3 % 11.5-14.5 Norm al (applies to non-numeric results) [facility] ([facility]) Platelet Count, Automated 212 10 150-450 Normal (applies to non-numeric results) [facility] ([facility]) Lymph % 27.9 % 24.0-44.0 Normal (applies to non-numeric resul ts) [facility] ([facility]) Neutrophils % 59.4 % 36.0-66.0 Normal (applies to non-numeric re sults) [facility] ([facility]) Baso % 0.4 % 0.0-1.0 Normal (applies to non-numeric resul ts) [facility] ([facility]) Eos % 5.6 % 0.0-3.0 Above high normal [facility] ([facility]) [place] % 6.4 % 2.0-8.0 Normal (applies to non-numeric resul ts) [facility] ([facility]) Immature Granulocyte % 0.3 % 0-3.0 Normal (applies to non-n umeric results) [facility] ([facility]) Nucleated Red Blood Cell % 0.0 % 0-0 Normal (applies to n on-numeric results) [facility] ([facility]) [place] # 0.5 10 0.0-0.8 Normal (applies to non-numeric resul ts) [facility] ([facility]) Neutrophils # 4.6 10 1.5-8.5 Normal (applies to non-numeric re sults) [facility] ([facility]) Lymph # 2.2 10 1.5-5.0 Normal (applies to non-numeric resul ts) [facility] ([facility]) Baso # 0.0 10 0.0-0.2 Normal (applies to non-numeric resul ts) [facility] ([facility]) Eos # 0.4 10 0.0-0.5 Normal (applies to non-numeric resul ts) [facility] ([facility]) ID Date Data Source [facility] 10/02/2020 12:00:00 AM EDT eCW1 ([facility]) Name Value Range Interpretation Code Description Data Rema rce(s) Supporting Document(s) 1.27 0.00-1.20 NORMALIZED RATIO eCW1 ([facility]) ID Date Data Source TSH 10/02/2020 12:00:00 AM EDT eCW1 ([facility]) Name Value Range Interpretation Code Description Data Rema rce(s) Supporting Document(s) 0.828 0.358-3.740 THYROID STIMULATING HORM ONE eCW1 ([facility]) ID Date Data Source LUPUS TYPE ANTICOAGULANT SCREE 10/02/2020 12:00:00 AM EDT eC W1 ([facility]) Name Value Range Interpretation Code Description Data Rema rce(s) Supporting Document(s) 1.4 0-1.2 PTT LUPUS TYPE ANTICOAG S CREEN eCW1 ([facility]) ID Date Data Source COMPLEMENT TOTAL (CH50) 10/02/2020 12:00:00 AM EDT eCW1 ([facility]) Name Value Range Interpretation Code Description Data Rema rce(s) Supporting Document(s) > 60 >41 COMPLEMENT TOTAL (CH50) eCW1 ( [facility]) ID Date Data Source VITAMIN B12 LEVEL 10/02/2020 12:00:00 AM EDT eCW1 ([facility]) Name Value Range Interpretation Code Description Data Rema rce(s) Supporting Document(s) [id number] VITAMIN B12 LEVEL eCW1 ([facility]) ID Date Data Source VITAMIN D 25-HYDROXY 10/02/2020 12:00:00 AM EDT eCW1 ([facility]) Name Value Range Interpretation Code Description Data Rema rce(s) Supporting Document(s) 24.7 30.0-100.0 TOTAL 25(OH) VITAMIN D eC W1 ([facility]) ID Date Data Source [facility] Hand, complete 10/02/2020 12:00:00 AM EDT eCW1 ([facility]) Name Value Range Interpretation Code Description Data Rema rce(s) Supporting Document(s) [facility] Hand, complete eCW1 ([facility]) ID Date Data Source [facility] Wrist, complete 10/02/2020 12:00:00 AM EDT eCW1 ([facility]) Name Value Range Interpretation Code Description Data Rema rce(s) Supporting Document(s) [facility] Wrist, complete eCW1 [facility] ID Date Data Source [facility] Ankle, complete 10/02/2020 12:00:00 AM EDT eCW1 ([facility]) Name Value Range Interpretation Code Description Data Rema rce(s) Supporting Document(s) [facility] Ankle, complete eCW1 ([facility]) ID Date Data Source MAGNESIUM LEVEL 10/02/2020 12:00:00 AM EDT eCW1 ([facility]) Name Value Range Interpretation Code Description Data Rema rce(s) Supporting Document(s) 2.1 1.8-2.4 MAGNESIUM LEVEL eCW1 ([facility]) ID Date Data Source IRON (FE) 10/02/2020 12:00:00 AM EDT eCW1 ([facility]) Name Value Range Interpretation Code Description Data Rema rce(s) Supporting Document(s) 50 50-170 IRON (FE) eCW1 ([facility]) ID Date Data Source CPK CREATINE PHOSPHOKINASE 10/02/2020 12:00:00 AM EDT eCW1 ( [facility]) Name Value Range Interpretation Code Description Data Rema rce(s) Supporting Document(s) 43 26-192 CPK CREATINE PHOSPHOKINASE eCW 1 ([facility]) ID Date Data Source PHOSPHOROUS LEVEL 10/02/2020 12:00:00 AM EDT eCW1 ([facility]) Name Value Range Interpretation Code Description Data Rema rce(s) Supporting Document(s) 3.6 2.5-4.9 PHOSPHORUS LEVEL eCW1 ([facility]) ID Date Data Source ERYTHROCYTE SEDIMENTATION RATE 10/02/2020 12:00:00 AM EDT eC W1 ([facility]) Name Value Range Interpretation Code Description Data Rema rce(s) Supporting Document(s) 45 0-20 ERYTHROCYTE SEDIMENTATION RATE eCW1 ([facility]) ID Date Data Source C REACTIVE PROTEIN QUANTITATIV (At [facility]) 10/02/2020 12:00 :00 AM EDT eCW1 ([facility]) Name Value Range Interpretation Code Description Data Rema rce(s) Supporting Document(s) 1.67 0.00-0.30 C REACTIVE PROTEIN QUANTI TATIV eCW1 ([facility]) ID Date Data Source CBC with Differential 10/02/2020 12:00:00 AM EDT eCW1 ([facility]) Name Value Range Interpretation Code Description Data Rema rce(s) Supporting Document(s) 4.54 4.00-5.40 RED BLOOD COUNT eCW1 ([facility]) 7.8 4.0-10.0 WHITE BLOOD COUNT eCW1 ([facility]) 39.2 36.0-47.0 HEMATOCRIT eCW1 ([facility]) 12.9 12.0-15.5 HEMOGLOBIN eCW1 ([facility]) 86.3 80.0-96.0 MEAN CORPUSCULAR VOLUME e CW1 ([facility]) 13.3 11.5-14.5 RED CELL DISTRIBUTION WID TH eCW1 ([facility]) 28.4 27.0-33.0 MEAN CORPUSCULAR HEMOGLOB IN eCW1 ([facility]) 32.9 32.0-36.5 MEAN CORPUSCULAR HGB CONC eCW1 ([facility]) 59.4 36.0-66.0 NEUTROPHILS % eCW1 ([facility]) 212 150-450 PLATELET COUNT, AUTOMATED eCW1 ([facility]) 27.9 24.0-44.0 LYMPH % eCW1 ([facility]) 0.4 0.0-1.0 BASO % eCW1 ([facility]) 5.6 0.0-3.0 EOS % eCW1 ([facility]) 6.4 2.0-8.0 MONO % eCW1 ([facility]) 0.5 0.0-0.8 MONO # eCW1 ([facility]) 2.2 1.5-5.0 LYMPH # eCW1 ([facility]) 4.6 1.5-8.5 NEUTROPHILS # eCW1 ([facility]) 0.0 0.0-0.2 BASO # eCW1 ([facility]) 0.4 0.0-0.5 EOS # eCW1 ([facility]) ID Date Data Source COMPLEMENT C4 10/02/2020 12:00:00 AM EDT eCW1 ([facility]) Name Value Range Interpretation Code Description Data Rema rce(s) Supporting Document(s) 23 10-40 COMPLEMENT C4 eCW1 ([facility]) ID Date Data Source COMPLEMENT C3 10/02/2020 12:00:00 AM EDT eCW1 ([facility]) Name Value Range Interpretation Code Description Data Rema rce(s) Supporting Document(s) 148 90-180 COMPLEMENT C3 eCW1 ([facility]) ID Date Data Source UA URINALYSIS 09/28/2020 12:00:00 AM EDT eCW1 ([facility]) Name Value Range Interpretation Code Description Data Rema rce(s) Supporting Document(s) UA URINALYSIS eCW1 ([facility]) ID Date Data Source TOTAL PROTEIN,RANDOM URINE 09/28/2020 12:00:00 AM EDT eCW1 ( [facility]) Name Value Range Interpretation Code Description Data Rema rce(s) Supporting Document(s) 12.4 0.0-12.0 TOTAL PROTEIN,RANDOM URIN E eCW1 ([facility]) ID Date Data Source CREATININE,RANDOM URINE 09/28/2020 12:00:00 AM EDT eCW1 ([facility]) Name Value Range Interpretation Code Description Data Rema rce(s) Supporting Document(s) 175.0 CREATININE,RANDOM URINE eCW1 ( [facility]) ID Date Data Source [id number] 06/19/2020 10:39:00 AM EDT [facility] ([facility]) Name Value Range Interpretation Code Description Data Rema rce(s) Supporting Document(s) Anti Double Strand-Dna AB 32 IU/ml 0-9 Above high normal [facility] ([facility]) <content>Negative <5</content>
<content>Equivocal 5 - 9</content>
<content>Positive >9</content>
<content></content> BAR STEWARD Antibodies Laboratory test result 0.0-0.9 Normal (a pplies to non-numeric results) [facility] ([facility]) Antinuclear Antibodies Direct Laboratory test result Abnormal (applies to non- numeric results) [facility] ([facility]) Acmargo Antibodies Laboratory test result 0.0-0.9 Normal ( applies to non-numeric results) [facility] ([facility]) Sjogren's Anti SS-A Laboratory test result 0.0-0.9 [place] (applies to non- numeric results) [facility] ([facility]) Renée Comment Laboratory test result Normal (applies to non- numeric results) [facility] ([facility]) . Autoantibody Disease Association Condition Frequency -------- [...] (anti-[place]) SLE 15 - 30% ------- --------- BAR STEWARD Mixed Connective Tissue Disease 95% (U1 nRNP, SLE 30 - 50% anti-ribonucleoprotein) Polymyositis and/or Dermatomyositis 20% -------- --------- Scl-70 (antiDNA Scleroderma (diffuse) 20 - 35% topoisomerase) Crest 13% -------- --------- Edel-1 Polymyositis and/or Dermatomyositis 20 - 40% -------- --------- Centromere B Scleroderma - Crest variant 80% Performed at: - [facility] [id number] Ve Teacher: Pretty Swain MD, Phone: [phone] Sjogren's Anti SS-B Laboratory test result 0.0-0.9 [place] (applies to non- numeric results) [facility] ([facility]) ID Date Data Source [id number] 06/19/2020 10:39:00 AM EDT [facility] ([facility]) Name Value Range Interpretation Code Description Data Rema rce(s) Supporting Document(s) Glucose, Fasting 83 mg/dL 70-100 Normal (applies to non-numeric results) [facility] ([facility]) Blood Urea Nitrogen 22 mg/dL 7-18 Above high normal [facility] ([facility]) Creatinine For GFR 0.83 mg/dL 0.55-1.30 Normal (applies to non -numeric results) [facility] ([facility]) Sodium Level 139 meq/L 136-145 Normal (applies to non-numeric res ults) [facility] ([facility]) Glomerular Filtration Rate Laboratory test result Normal (applies to non- numeric results) [facility] ([facility]) <content>Units are mL/min/1.73 m2</content>
<content></content>
<content>Chronic Kidney Disease Staging per NKF:</content>
<content></content>
<content>Stage I & II GFR >=60 Normal to Mildly Decreased</content>
<content>Stage III GFR 30- 59 Moderately Decreased</content>
<content>Stage IV GFR 15-29 Severely Decreased</content>
<content>Stage V GFR <15 Very Little GFR Left</content>
<content>ESRD GFR <15 on ACCOUNTS OFFICER</content>
<content></content> Chloride Level 106 meq/L 98-107 Normal (applies to non-numeric r esults) [facility] ([facility]) Potassium Serum 4.3 meq/L 3.5-5.1 Normal (applies to non-numeric results) [facility] ([facility]) Anion Gap 5 meq/L 8-16 Below low normal [facility] ( [facility]) Carbon Dioxide Level 28 meq/L 21-32 Normal (applies to non-num prashanth results) [facility] ([facility]) Calcium Level 9.1 mg/dL 8.5-10.1 Normal (applies to non-numeric re sults) [facility] ([facility]) Ast/Sgot 17 U/L 7-37 Normal (applies to non-numeric resul ts) [facility] ([facility]) Alt/SGPT 29 U/L 12-78 Normal (applies to non-numeric resul ts) [facility] ([facility]) Alkaline Phosphatase 103 U/L 45-117 Normal (applies to non-num prashanth results) [facility] ([facility]) Bilirubin,Total 0.4 mg/dL 0.2-1.0 Normal (applies to non-numeric results) [facility] ([facility]) Albumin 3.5 GM/DL 3.2-5.2 Normal (applies to non-numeric resul ts) [facility] ([facility]) Total Protein 7.1 GM/DL 6.4-8.2 Normal (applies to non-numeric re sults) [facility] ([facility]) Albumin/Globulin Ratio 1.0 1.2-2.2 Below low normal [facility] ([facility]) ID Date Data Source [id number] 06/19/2020 10:39:00 AM EDT [facility] ([facility]) Name Value Range Interpretation Code Description Data Rema rce(s) Supporting Document(s) Nuclear Ab [Titer] in Serum by Immunofluorescence Laboratory test res ult [facility] ([facility]) Erythrocyte sedimentation rate by Westergren method 41 mm/hr 0-20 Above high normal [facility] ([facility]) Rheumatoid factor [Units/volume] in Serum or Plasma Laboratory t est result Normal (applies to non-numeric results) [facility] ([facility]) <content>note:<nlbl:demographic_changed> </content>
<content></content> C reactive protein [Mass/volume] in Serum or Plasma by High sensitivity method 1.13 mg/dL 0.00-0.30 Above high normal [facility] ([facility]) <content>note:<nlbl:demographic_changed> </content>
<content></content> ID Date Data Source [id number] 06/19/2020 10:39:00 AM EDT [facility] ([facility]) Name Value Range Interpretation Code Description Data Rema rce(s) Supporting Document(s) Red Blood Count 4.67 10 4.00-5.40 Normal (applies to non-numeric results) [facility] ([facility]) White Blood Count 7.1 10 4.0-10.0 Normal (applies to non-numeri c results) [facility] ([facility]) Hemoglobin 13.5 g/dL 12.0-15.5 Normal (applies to non-numeric resul ts) [facility] ([facility]) Hematocrit 42.2 % 36.0-47.0 Normal (applies to non-numeric resul ts) [facility] ([facility]) Mean Corpuscular HGB Conc 32.0 g/dL 32.0-36.5 Normal (applies to non-numeric results) [facility] ([facility]) Mean Corpuscular Hemoglobin 28.9 pg 27.0-33.0 Norm al (applies to non-numeric results) [facility] ([facility]) Mean Corpuscular Volume 90.4 fl 80.0-96.0 Normal ( applies to non-numeric results) [facility] ([facility]) Platelet Count, Automated 238 10 150-450 Normal (applies to non-numeric results) [facility] ([facility]) Neutrophils % 56.9 % 36.0-66.0 Normal (applies to non-numeric re sults) [facility] ([facility]) Red Cell Distribution Width 13.1 % 11.5-14.5 Norm al (applies to non-numeric results) [facility] ([facility]) [place] % 5.5 % 2.0-8.0 Normal (applies to non-numeric resul ts) [facility] ([facility]) Lymph % 28.2 % 24.0-44.0 Normal (applies to non-numeric resul ts) [facility] ([facility]) Eos % 8.1 % 0.0-3.0 Above high normal [facility] ([facility]) Baso % 1.0 % 0.0-1.0 Normal (applies to non-numeric resul ts) [facility] ([facility]) Immature Granulocyte % 0.3 % 0-3.0 Normal (applies to non-n umeric results) [facility] ([facility]) Nucleated Red Blood Cell % 0.0 % 0-0 Normal (applies to n on-numeric results) [facility]) Neutrophils # 4.0 10 1.5-8.5 Normal (applies to non-numeric re sults) [facility]) Lymph # 2.0 10 1.5-5.0 Normal (applies to non-numeric resul ts) [facility] ([facility]) Eos # 0.6 10 0.0-0.5 Above high normal [facility] ([facility]) Baso # 0.1 10 0.0-0.2 Normal (applies to non-numeric resul ts) [facility] ([facility]) [place] # 0.4 10 0.0-0.8 Normal (applies to non-numeric resul ts) [facility] ([facility]) ID Date Data Source [id number] 06/15/2020 03:00:00 PM EDT [facility] ([facility]) Name Value Range Interpretation Code Description Data Rema rce(s) Supporting Document(s) Pelvis Complete - 3 Views Laboratory test result [facility] ([facility]) Hip Complete RT Laboratory test result [facility] ([facility]) Spine LS Complete Laboratory test result [facility] ([facility]) Spine Thoracic Laboratory test result [facility] ([facility]) ID Date Data Source [id number] 04/23/2020 06:59:00 PM EST [facility] ([facility]) Name Value Range Interpretation Code Description Data Rema rce(s) Supporting Document(s) Laboratory test finding (navigational concept) 40.0 % 3 8.0-51.0 Normal (applies to non-numeric results) [facility] ([facility]) Laboratory test finding (navigational concept) 92 mg/dL 7 0-105 Normal (applies to non-numeric results) [facility] ([facility]) Laboratory test finding (navigational concept) 3.7 meq/L 3 .5-5.1 Normal (applies to non-numeric results) [facility] ([facility]) Laboratory test finding (navigational concept) 142 meq/L 1 36-145 Normal (applies to non-numeric results) [facility] ([facility]) Laboratory test finding (navigational concept) 4.8 mg/dL 4 .5-5.3 Normal (applies to non-numeric results) [facility] ([facility]) Laboratory test finding (navigational concept) 104 meq/L 9 8-109 Normal (applies to non-numeric results) [facility] ([facility]) Laboratory test finding (navigational concept) 30.0 MM/L 2 3.0-27.0 Above high normal [facility] ([facility]) Laboratory test finding (navigational concept) 18 mg/dL 8 -26 Normal (applies to non-numeric results) [facility] ([facility]) Laboratory test finding (navigational concept) 1.1 mg/dL 0 .6-1.3 Normal (applies to non-numeric results) [facility] ([facility]) ID Date Data Source [id number] 04/23/2020 06:52:00 PM EST [facility] ([facility]) Name Value Range Interpretation Code Description Data Rema rce(s) Supporting Document(s) Reflex Urine Culture Laboratory test result Norm al (applies to non-numeric results) [facility] ([facility]) FULL REPORT IN LAB NOTES (eCW and [facility] ). NO GROWTH CLINICAL SIGNIFICANCE 2 OR MORE ORGANISMS ID Date Data Source [id number] 04/23/2020 06:52:00 PM EST [facility] ([facility]) Name Value Range Interpretation Code Description Data Rema rce(s) Supporting Document(s) Appearance, Urine RFX Laboratory test result Nor mal (applies to non-numeric results) [facility] ([facility]) PH,Urine RFX 6.0 units 5.0-9.0 Normal (applies to non-numeric res ults) [facility] ([facility]) Color, Urine RFX Laboratory test result Normal ( applies to non-numeric results) [facility] ([facility]) Specific [place] Ur Auto RFX 1.020 1.002-1.035 Nor mal (applies to non-numeric results) [facility] ([facility]) Protein, Urine Auto RFX Laboratory test result N ormal (applies to non-numeric results) [facility] ([facility]) Glucose, Urine (Ua) Auto RFX Laboratory test result Normal (applies to non- numeric results) [facility] ([facility]) Ketone, Urine Auto RFX Laboratory test result No rmal (applies to non-numeric results) [facility] ([facility]) Bilirubin, Urine Auto RFX Laboratory test result Normal (applies to non- numeric results) [facility] ([facility]) Urobilinogen, Urine Auto RFX 0.2 mg/dL 0.0-2.0 Nor mal (applies to non-numeric results) [facility] ([facility]) Nitrite, Urine Auto RFX Laboratory test result N ormal (applies to non-numeric results) [facility] ([facility]) Blood, Urine Blood RFX Laboratory test result Above high n ormal [facility] ([facility]) Leukocyte Esterase Ur Auto RFX Laboratory test result Abov e high normal [facility] ([facility]) WBC, Urine Auto RFX 32 /HPF 0-3 Above high normal [facility] ([facility]) RBC, Urine Auto RFX Laboratory test result 0-3 Above high norm al [facility] ([facility]) Bacteria, Urine Auto RFX Laboratory test result Above high normal [facility] ([facility]) Squam Epithelial Cell Ur Aurfx 1 /HPF 0-6 N ormal (applies to non-numeric results) [facility] ([facility]) Transitional Epithelial AU RFX Laboratory test result Normal (applies to non- numeric results) [facility] ([facility]) Hyaline Cast, Urine Auto RFX 0 /LPF 0-1 Normal (appl ies to non-numeric results) [facility] ([facility]) ID Date Data Source [id number] 04/23/2020 06:52:00 PM EST [facility] ([facility]) Name Value Range Interpretation Code Description Data Rema e(s) Supporting Document(s) Lipase [Enzymatic activity/volume] in Serum or Plasma 194 U/L 73-393 Normal (applies to non-numeric results) [facility] ([facility]) <content>note:<nlbl:demographic_changed> </content>
<content></content> ID Date Data Source [id number] 04/23/2020 06:52:00 PM EST [facility] ([facility]) Name Value Range Interpretation Code Description Data Rema rce(s) Supporting Document(s) Ast/Sgot 15 U/L 7-37 Normal (applies to non-numeric resul ts) [facility] ([facility]) Alt/SGPT 24 U/L 12-78 Normal (applies to non-numeric resul ts) [facility] ([facility]) Alkaline Phosphatase 130 U/L 45-117 Above high normal [facility] ([facility]) Bilirubin,Total 0.2 mg/dL 0.2-1.0 Normal (applies to non-numeric results) [facility] ([facility]) Bilirubin,Direct Laboratory test result 0.0-0.2 Normal ( applies to non-numeric results) [facility] ([facility]) Total Protein 7.4 GM/DL 6.4-8.2 Normal (applies to non-numeric re sults) [facility] ([facility]) Albumin 3.2 GM/DL 3.2-5.2 Normal (applies to non-numeric resul ts) [facility] ([facility]) Albumin/Globulin Ratio 0.8 1.2-2.2 Below low normal [facility] ([facility]) ID Date Data Source [id number] 04/23/2020 06:52:00 PM EST [facility] ([facility]) Name Value Range Interpretation Code Description Data Rema rce(s) Supporting Document(s) White Blood Count 9.5 10 4.0-10.0 Normal (applies to non-numeri c results) [facility] ([facility]) Red Blood Count 4.44 10 4.00-5.40 Normal (applies to non-numeric results) [facility] ([facility]) Hemoglobin 13.2 g/dL 12.0-15.5 Normal (applies to non-numeric resul ts) [facility] ([facility]) Hematocrit 40.4 % 36.0-47.0 Normal (applies to non-numeric resul ts) [facility] ([facility]) Mean Corpuscular Volume 91.0 fl 80.0-96.0 Normal ( applies to non-numeric results) [facility] ([facility]) Mean Corpuscular Hemoglobin 29.7 pg 27.0-33.0 Norm al (applies to non-numeric results) [facility] ([facility]) Mean Corpuscular HGB Conc 32.7 g/dL 32.0-36.5 Normal (applies to non-numeric results) [facility] ([facility]) Neutrophils % 56.5 % 36.0-66.0 Normal (applies to non-numeric re sults) [facility] ([facility]) Platelet Count, Automated 294 10 150-450 Normal (applies to non-numeric results) [facility] ([facility]) Red Cell Distribution Width 12.8 % 11.5-14.5 Norm al (applies to non-numeric results) [facility] ([facility]) Lymph % 29.0 % 24.0-44.0 Normal (applies to non-numeric resul ts) [facility] ([facility]) [place] % 5.4 % 2.0-8.0 Normal (applies to non-numeric resul ts) [facility] ([facility]) Baso % 0.8 % 0.0-1.0 Normal (applies to non-numeric resul ts) [facility] ([facility]) Eos % 8.1 % 0.0-3.0 Above high normal [facility] ([facility]) Nucleated Red Blood Cell % 0.0 % 0-0 Normal (applies to n on-numeric results) [facility] ([facility]) Immature Granulocyte % 0.2 % 0-3.0 Normal (applies to non-n umeric results) [facility] ([facility]) [place] # 0.5 10 0.0-0.8 Normal (applies to non-numeric resul ts) [facility] ([facility]) Neutrophils # 5.3 10 1.5-8.5 Normal (applies to non-numeric re sults) [facility] ([facility]) Lymph # 2.8 10 1.5-5.0 Normal (applies to non-numeric resul ts) [facility] ([facility]) Eos # 0.8 10 0.0-0.5 Above high normal [facility] ([facility]) Baso # 0.1 10 0.0-0.2 Normal (applies to non-numeric resul ts) [facility] ([facility]) ID Date Data Source [id number] 04/06/2020 06:45:00 PM EST [facility] Name Value Range Interpretation Code Description Data Rema rce(s) Supporting Document(s) SARS coronavirus 2 RNA [Presence] in Res piratory specimen by PATSY with probe detection NEGATIVE [place] This lab was ordered by [facility] a nd reported by [facility]. ID Date Data Source Comprehensive Metabolic Profile (CMP) 03/31/2020 12:00:00 AM EST eCW1 ([facility]) Name Value Range Interpretation Code Description Data Rema rce(s) Supporting Document(s) 116 70-100 GLUCOSE, FASTING eCW1 ([facility]) 0.67 0.55-1.30 CREATININE FOR GFR eCW1 ([facility]) 9 7-18 BLOOD UREA NITROGEN eCW1 ([facility] hospital) > 60.0 >60 GLOMERULAR FILTRATION RATE eCW 1 ([facility]) 138 136-145 SODIUM LEVEL eCW1 ([facility]) 4.4 3.5-5.1 POTASSIUM SERUM eCW1 ([facility]) 103 98-107 CHLORIDE LEVEL eCW1 ([facility]) 9.1 8.5-10.1 CALCIUM LEVEL eCW1 ([facility]) 29 21-32 CARBON DIOXIDE LEVEL eCW1 ([facility]) 13 12-78 ALT/SGPT eCW1 ([facility]) 6 7-37 AST/SGOT eCW1 ([facility]) 0.2 0.2-1.0 BILIRUBIN,TOTAL eCW1 ([facility]) 2.4 3.2-5.2 ALBUMIN eCW1 ([facility]) 6.4 6.4-8.2 TOTAL PROTEIN eCW1 ([facility]) 122 45-117 ALKALINE PHOSPHATASE eCW1 ([facility]) 0.6 1.2-2.2 ALBUMIN/GLOBULIN RATIO eCW1 ([facility]) ID Date Data Source CBC - Complete Blood Count 03/31/2020 12:00:00 AM EST eCW1 ( [facility]) Name Value Range Interpretation Code Description Data Rema rce(s) Supporting Document(s) 4.28 4.00-5.40 RED BLOOD COUNT eCW1 ([facility]) 12.1 4.0-10.0 WHITE BLOOD COUNT eCW1 ([facility]) 13.2 12.0-15.5 HEMOGLOBIN eCW1 ([facility]) 30.8 27.0-33.0 MEAN CORPUSCULAR HEMOGLOB IN eCW1 ([facility]) 39.0 36.0-47.0 HEMATOCRIT eCW1 ([facility]) 33.8 32.0-36.5 MEAN CORPUSCULAR HGB CONC eCW1 ([facility]) 91.1 80.0-96.0 MEAN CORPUSCULAR VOLUME e CW1 ([facility]) 197 150-450 PLATELET COUNT, AUTOMATED eCW1 ([facility]) 13.8 11.5-14.5 RED CELL DISTRIBUTION WID TH eCW1 ([facility]) ID Date Data Source Pre Eclampsia Profile 03/08/2020 12:00:00 AM EST eCW1 ([facility]) Name Value Range Interpretation Code Description Data Rema rce(s) Supporting Document(s) 0.62 0.55-1.30 CREATININE FOR GFR eCW1 ([facility]) 7 7-37 AST/SGOT eCW1 ([facility]) > 60.0 >60 GLOMERULAR FILTRATION RATE eCW 1 ([facility]) 16 12-78 ALT/SGPT eCW1 ([facility]) 145 84-246 LDH LACTATE DEHYDROGENASE eCW1 ([facility]) 3.6 2.6-6.0 URIC ACID eCW1 ([facility]) 0.2 0.2-1.0 BILIRUBIN,TOTAL eCW1 ([facility]) ID Date Data Source Glucose Challenge Test 1 Hour 01/24/2020 12:00:00 AM EST eCW 1 ([facility]) Name Value Range Interpretation Code Description Data Rema rce(s) Supporting Document(s) 121 LESS THAN 140 GLUCOSE CHALLENGE TEST 1 HOUR eCW1 ([facility]) ID Date Data Source Type and Screen (D Rh Antibody Screen) 01/24/2020 12:00:00 A M EST eCW1 ([facility]) Name Value Range Interpretation Code Description Data Rema rce(s) Supporting Document(s) NEGATIVE AB SCREEN (INDIRECT COOMB S)VIS eCW1 ([facility]) O POSITIVE BLOOD TYPE eCW1 ([facility]) ID Date Data Source WWBC OBS COMPLETE US 12/21/2019 03:14:36 AM EDT eCW1 ([facility]) Name Value Range Interpretation Code Description Data Rema rce(s) Supporting Document(s) eCW1 ([facility]) ID Date Data Source PAP REQUEST FOR SERVICE 12/13/2019 02:40:09 AM EDT eCW1 ([facility]) Name Value Range Interpretation Code Description Data Rema rce(s) Supporting Document(s) eCW1 ([facility]) ID Date Data Source HEPATITIS C ANTIBODY INDEX 12/13/2019 02:39:54 AM EDT eCW1 ( [facility]) Name Value Range Interpretation Code Description Data Rema rce(s) Supporting Document(s) 1.1 eCW1 ([facility]) ID Date Data Source HBSAG 12/09/2019 10:34:13 AM EDT eCW1 ([facility]) Name Value Range Interpretation Code Description Data Rema rce(s) Supporting Document(s) NEGATIVE eCW1 ([facility]) ID Date Data Source RUBELLA IMMUNE STATUS IgG 12/09/2019 10:33:58 AM EDT eCW1 ([facility]) Name Value Range Interpretation Code Description Data Rema rce(s) Supporting Document(s) IMMUNE eCW1 ([facility]) ID Date Data Source SYPHILIS ANTIBODY (RPR SCREEN) 12/09/2019 10:33:52 AM EDT eC W1 ([facility]) Name Value Range Interpretation Code Description Data Rema rce(s) Supporting Document(s) NONREACTIVE eCW1 ([facility]) ID Date Data Source [id number] 12/09/2019 10:19:01 AM EDT eCW1 ([facility]) Name Value Range Interpretation Code Description Data Rema rce(s) Supporting Document(s) eCW1 ([facility]) ID Date Data Source [id number] 10/24/2019 06:15:00 PM EDT [facility] ([facility]) Name Value Range Interpretation Code Description Data Rema rce(s) Supporting Document(s) Reflex Urine Culture Laboratory test result Norm al (applies to non-numeric results) [facility] ([facility]) <content>FULL REPORT IN LAB NOTES (eCW a [...] FOR ESBL</content>
<content></content> ID Date Data Source [id number] 10/24/2019 06:15:00 PM EDT [facility] ([facility]) Name Value Range Interpretation Code Description Data Rema rce(s) Supporting Document(s) PH,Urine RFX 5.0 units 5.0-9.0 Normal (applies to non-numeric res ults) [facility] ([facility]) Color, Urine RFX Laboratory test result Normal ( applies to non-numeric results) [facility] ([facility]) Appearance, Urine RFX Laboratory test result Above high no rmal [facility] ([facility]) Specific [place] Ur Auto RFX 1.021 1.002-1.035 Nor mal (applies to non-numeric results) [facility] ([facility]) Glucose, Urine (Ua) Auto RFX Laboratory test result Normal (applies to non- numeric results) [facility] ([facility]) Protein, Urine Auto RFX Laboratory test result N ormal (applies to non-numeric results) [facility] ([facility]) Ketone, Urine Auto RFX Laboratory test result Above high n ormal [facility] ([facility]) Urobilinogen, Urine Auto RFX 0.2 mg/dL 0.0-2.0 Nor mal (applies to non-numeric results) [facility] ([facility]) Bilirubin, Urine Auto RFX Laboratory test result Normal (applies to non- numeric results) [facility] ([facility]) Blood, Urine Blood RFX Laboratory test result No rmal (applies to non-numeric results) [facility] ([facility]) Nitrite, Urine Auto RFX Laboratory test result N ormal (applies to non-numeric results) [facility] ([facility]) Leukocyte Esterase Ur Auto RFX Laboratory test result Abov e high normal [facility] ([facility]) WBC, Urine Auto RFX 2 /HPF 0-3 Normal (applies to non-nume zeny results) [facility] ([facility]) RBC, Urine Auto RFX 2 /HPF 0-3 Normal (applies to non-nume zeny results) [facility] ([facility]) Bacteria, Urine Auto RFX Laboratory test result Normal (applies to non-numeric results) [facility] ([facility]) Squam Epithelial Cell Ur Aurfx 5 /HPF 0-6 N ormal (applies to non-numeric results) [facility] ([facility]) Hyaline Cast, Urine Auto RFX 0 /LPF 0-1 Normal (appl ies to non-numeric results) [facility] ([facility]) Mucus, Urine RFX Laboratory test result Normal ( applies to non-numeric results) [facility] ([facility]) ID Date Data Source [id number] 10/24/2019 05:33:00 PM EDT [facility] ([facility]) Name Value Range Interpretation Code Description Data Rema rce(s) Supporting Document(s) Lipase [Enzymatic activity/volume] in Serum or Plasma 72 U/L 73-393 Below low normal [facility] ([facility]) <content>note:<nlbl:demographic_changed> </content>
<content></content> ID Date Data Source [id number] 10/24/2019 05:33:00 PM EDT [facility] ([facility]) Name Value Range Interpretation Code Description Data Rema rce(s) Supporting Document(s) Glucose, Fasting 88 mg/dL 70-100 Normal (applies to non-numeric results) [facility] ([facility]) Blood Urea Nitrogen 9 mg/dL 7-18 Normal (applies to non-nume zeny results) [facility] ([facility]) Creatinine For GFR 0.69 mg/dL 0.55-1.30 Normal (applies to non -numeric results) [facility] ([facility]) Sodium Level 139 meq/L 136-145 Normal (applies to non-numeric res ults) [facility] ([facility]) Glomerular Filtration Rate Laboratory test result Normal (applies to non- numeric results) [facility] ([facility]) <content>Units are mL/min/1.73 m2</content>
<content></content>
<content>Chronic Kidney Disease Staging per NKF:</content>
<content></content>
<content>Stage I & II GFR >=60 Normal to Mildly Decreased</content>
<content>Stage III GFR 30-59 Moderately Decreased</content>
<content>Stage IV GFR 15-29 Severely Decreased</content>
<content>Stage V GFR <15 Very Little GFR Left</content>
<content>ESRD GFR <15 on ACCOUNTS OFFICER</content>
<content></content> Potassium Serum 3.9 meq/L 3.5-5.1 Normal (applies to non-numeric results) [facility] ([facility]) Carbon Dioxide Level 23 meq/L 21-32 Normal (applies to non-num prashanth results) [facility] ([facility]) Chloride Level 108 meq/L 98-107 Above high normal [facility] ([facility]) Calcium Level 8.6 mg/dL 8.5-10.1 Normal (applies to non-numeric re sults) [facility] ([facility]) Anion Gap 8 meq/L 8-16 Normal (applies to non-numeric resul ts) [facility] ([facility]) ID Date Data Source [id number] 10/24/2019 05:33:00 PM EDT [facility] ([facility]) Name Value Range Interpretation Code Description Data Rema rce(s) Supporting Document(s) Ast/Sgot 15 U/L 7-37 Normal (applies to non-numeric resul ts) [facility] ([facility]) Alkaline Phosphatase 80 U/L 45-117 Normal (applies to non-num prashanth results) [facility] ([facility]) Bilirubin,Total 0.4 mg/dL 0.2-1.0 Normal (applies to non-numeric results) [facility] ([facility]) Alt/SGPT 23 U/L 12-78 Normal (applies to non-numeric resul ts) [facility] ([facility]) Albumin 3.2 GM/DL 3.2-5.2 Normal (applies to non-numeric resul ts) [facility] ([facility]) Total Protein 7.1 GM/DL 6.4-8.2 Normal (applies to non-numeric re sults) [facility] ([facility]) Bilirubin,Direct 0.1 mg/dL 0.0-0.2 Normal (applies to non-numeric results) [facility] ([facility]) Albumin/Globulin Ratio 0.8 1.2-2.2 Below low normal [facility] ([facility]) ID Date Data Source [id number] 10/24/2019 05:33:00 PM EDT [facility] ([facility]) Name Value Range Interpretation Code Description Data Rema rce(s) Supporting Document(s) Hemoglobin 13.7 g/dL 12.0-15.5 Normal (applies to non-numeric resul ts) [facility] ([facility]) Red Blood Count 4.64 10 4.00-5.40 Normal (applies to non-numeric results) [facility] ([facility]) White Blood Count 9.9 10 4.0-10.0 Normal (applies to non-numeri c results) [facility] ([facility]) Mean Corpuscular Hemoglobin 29.5 pg 27.0-33.0 Norm al (applies to non-numeric results) [facility] ([facility]) Hematocrit 40.5 % 36.0-47.0 Normal (applies to non-numeric resul ts) [facility] ([facility]) Mean Corpuscular Volume 87.3 fl 80.0-96.0 Normal ( applies to non-numeric results) [facility] ([facility]) Mean Corpuscular HGB Conc 33.8 g/dL 32.0-36.5 Normal (applies to non-numeric results) [facility] ([facility]) Red Cell Distribution Width 13.9 % 11.5-14.5 Norm al (applies to non-numeric results) [facility] ([facility]) Platelet Count, Automated 223 10 150-450 Normal (applies to non-numeric results) [facility] ([facility]) Neutrophils % 78.7 % 36.0-66.0 Above high normal MED[facility] NT ([facility]) [place] % 2.9 % 0.0-5.0 Normal (applies to non-numeric resul ts) [facility] ([facility]) Lymph % 14.6 % 24.0-44.0 Below low normal [facility] ( [facility]) Baso % 0.4 % 0.0-1.0 Normal (applies to non-numeric resul ts) [facility] ([facility]) Immature Granulocyte % 0.5 % 0-3.0 Normal (applies to non-n umeric results) [facility] ([facility]) Eos % 2.9 % 0.0-3.0 Normal (applies to non-numeric resul ts) [facility] ([facility]) Nucleated Red Blood Cell % 0.0 % 0-0 Normal (applies to n on-numeric results) [facility] ([facility]) Neutrophils # 7.8 10 1.5-8.5 Normal (applies to non-numeric re sults) [facility] ([facility]) Lymph # 1.5 10 1.5-5.0 Normal (applies to non-numeric resul ts) [facility] ([facility]) [place] # 0.3 10 0.0-0.8 Normal (applies to non-numeric resul ts) [facility] ([facility]) Baso # 0.0 10 0.0-0.2 Normal (applies to non-numeric resul ts) [facility] ([facility]) Eos # 0.3 10 0.0-0.5 Normal (applies to non-numeric resul ts) [facility] ([facility]) Procedure Social History Code Duration Value Status Description Data Source(s ) Smoking 11/17/2020 12:00:00 AM EDT Unknown if ever smoked comp leted Unknown if ever smoked [facility] ([facility]) Smoking 11/03/2020 12:00:00 AM EDT Former Smoker completed Former Smoker eCW1 ([facility]) Smoking 11/03/2020 12:00:00 AM EDT Former Smoker completed Former Smoker eCW1 ([facility]) Alcohol intake 10/13/2020 12:00:00 AM EDT Current drinker of al cohol (finding) completed Current drinker of alcohol (finding) [facility] Smoking 09/28/2020 12:00:00 AM EDT Former Smoker completed Former Smoker eCW1 ([facility]) Smoking 09/28/2020 12:00:00 AM EDT Former Smoker completed Former Smoker eCW1 ([facility]) Smoking 09/28/2020 12:00:00 AM EDT Former Smoker completed Former Smoker eCW1 ([facility]) Smoking 09/28/2020 12:00:00 AM EDT Former Smoker completed Former Smoker eCW1 ([facility]) Smoking 09/18/2020 12:00:00 AM EDT Unknown if ever smoked comp leted Unknown if ever smoked [facility] ([facility]) Smoking 08/17/2020 12:00:00 AM EDT Unknown if ever smoked comp leted Unknown if ever smoked [facility] ([facility]) Smoking 07/25/2020 12:00:00 AM EDT Unknown if ever smoked comp leted Unknown if ever smoked [facility] ([facility]) Smoking 07/07/2020 12:00:00 AM EDT Unknown if ever smoked comp leted Unknown if ever smoked [facility] ([facility]) Smoking 06/28/2020 12:00:00 AM EDT Former Smoker completed Former Smoker eCW1 ([facility]) Smoking 06/20/2020 12:00:00 AM EDT Unknown if ever smoked comp leted Unknown if ever smoked [facility] ([facility]) Smoking 06/01/2020 12:00:00 AM EDT Unknown if ever smoked comp leted Unknown if ever smoked [facility] ([facility]) Smoking 05/24/2020 12:00:00 AM EDT Unknown if ever smoked comp leted Unknown if ever smoked [facility] ([facility]) Smoking 05/09/2020 12:00:00 AM EST Unknown if ever smoked comp leted Unknown if ever smoked [facility] ([facility]) Smoking 04/27/2020 12:00:00 AM EST Former Smoker completed Former Smoker eCW1 ([facility]) Smoking 04/27/2020 12:00:00 AM EST Former Smoker completed Former Smoker eCW1 ([facility]) Smoking 04/27/2020 12:00:00 AM EST Unknown if ever smoked comp leted Unknown if ever smoked [facility] ([facility]) Smoking 04/25/2020 12:00:00 AM EST Unknown if ever smoked comp leted Unknown if ever smoked [facility] ([facility]) Smoking 04/11/2020 12:00:00 AM EST Unknown if ever smoked comp leted Unknown if ever smoked [facility] ([facility]) Smoking 04/02/2020 12:00:00 AM EST Former Smoker completed Former Smoker eCW1 ([facility]) Smoking 03/24/2020 12:00:00 AM EST Former Smoker completed Former Smoker eCW1 ([facility]) Smoking 03/24/2020 12:00:00 AM EST Former Smoker completed Former Smoker eCW1 ([facility]) Smoking 03/24/2020 12:00:00 AM EST Unknown if ever smoked comp leted Unknown if ever smoked [facility] ([facility]) Smoking 03/21/2020 12:00:00 AM EST Unknown if ever smoked comp leted Unknown if ever smoked [facility] ([facility]) Smoking 03/17/2020 12:00:00 AM EST Unknown if ever smoked comp leted Unknown if ever smoked [facility] ([facility]) Smoking 03/16/2020 12:00:00 AM EST Former Smoker completed Former Smoker eCW1 ([facility]) Smoking 03/06/2020 12:00:00 AM EST Former Smoker completed Former Smoker eCW1 ([facility]) Smoking 03/06/2020 12:00:00 AM EST Former Smoker completed Former Smoker eCW1 ([facility]) Smoking 03/06/2020 12:00:00 AM EST Unknown if ever smoked comp leted Unknown if ever smoked [facility] ([facility]) Smoking 02/21/2020 12:00:00 AM EST Former Smoker completed Former Smoker eCW1 ([facility]) Smoking 02/21/2020 12:00:00 AM EST Former Smoker completed Former Smoker eCW1 ([facility]) Smoking 02/21/2020 12:00:00 AM EST Former Smoker completed Former Smoker eCW1 ([facility]) Smoking 02/11/2020 12:00:00 AM EST Unknown if ever smoked comp leted Unknown if ever smoked [facility] ([facility]) Smoking 01/25/2020 12:00:00 AM EST Unknown if ever smoked comp leted Unknown if ever smoked [facility] ([facility]) Smoking 01/21/2020 12:00:00 AM EST Former Smoker completed Former Smoker eCW1 ([facility]) Smoking 01/21/2020 12:00:00 AM EST Former Smoker completed Former Smoker eCW1 ([facility]) Smoking 01/21/2020 12:00:00 AM EST Former Smoker completed Former Smoker eCW1 ([facility]) Smoking 01/10/2020 12:00:00 AM EST Unknown if ever smoked comp leted Unknown if ever smoked [facility] ([facility]) Smoking 12/30/2019 12:00:00 AM EDT Unknown if ever smoked comp leted Unknown if ever smoked [facility] ([facility]) Smoking 12/16/2019 12:00:00 AM EDT Unknown if ever smoked comp leted Unknown if ever smoked [facility] ([facility]) Smoking 12/07/2019 12:00:00 AM EDT Former Smoker completed Former Smoker eCW1 ([facility]) Smoking 12/02/2019 12:00:00 AM EDT Unknown if ever smoked comp leted Unknown if ever smoked [facility] ([facility]) Smoking 11/30/2019 12:00:00 AM EDT Unknown if ever smoked comp leted Unknown if ever smoked [facility] ([facility]) Tobacco use and exposure 11/11/2019 12:00:00 AM EDT Never used co mpleted Never used [facility] Smoking 11/11/2019 12:00:00 AM EDT Former smoker completed Former smoker [facility] Smoking 11/09/2019 12:00:00 AM EDT Unknown if ever smoked comp leted Unknown if ever smoked [facility] ([facility]) Smoking 11/04/2019 12:00:00 AM EDT Unknown if ever smoked comp leted Unknown if ever smoked [facility] ([facility]) Vital Signs ID Date Data Source UNK Name Value Range Interpretation Code Description Data Source(s) Body weight 305.2 [lb_av] 305.2 [lb_av] eCW1 ([facility]) Body weight 138.44 kg 138.44 kg W1 ([facility]) Body height 66 [in_i] 66 [in_i] W1 ([facility]) Body mass index (BMI) [Ratio] 49.26 kg/m2 49.26 kg/m2 [facility] ([facility]) Heart rate 78 /min 78 /min eCW1 ([facility]) Respiratory rate 18 /min 18 /min eCW1 ([facility]) Body temperature 97.2 [degF] 97.2 [degF] eCW1 ( [facility]) Systolic blood pressure 138 mm[Hg] 138 mm[Hg] e CW1 ([facility]) Diastolic blood pressure 78 mm[Hg] 78 mm[Hg] eCW1 ([facility]) Systolic blood pressure 118 mm[Hg] 118 mm[Hg] [facility] Diastolic blood pressure 90 mm[Hg] 90 mm[Hg] [facility] Heart rate 69 /min 69 /min [facility] Body height 167.6 cm 167.6 cm [facility] Body weight 136.079 kg 136.079 kg [facility] Body mass index (BMI) [Ratio] 48.42 kg/m2 48.42 kg/m2 [facility] Oxygen saturation in Arterial blood by Pulse oximetry 97 % 97 % [facility] Body weight 297.8 [lb_av] 297.8 [lb_av] eCW1 ([facility]) Body weight 135.1 kg 135.1 kg W1 ([facility]) Body height 66 [in_i] 66 [in_i] W1 ([facility]) Body mass index (BMI) [Ratio] 48.06 kg/m2 48.06 kg/m2 eCW1 ([facility]) Heart rate 90 /min 90 /min eCW1 ([facility]) Respiratory rate 18 /min 18 /min eCW1 ([facility]) Body temperature 97.4 [degF] 97.4 [degF] eCW1 ( [facility]) Systolic blood pressure 118 mm[Hg] 118 mm[Hg] e CW1 ([facility]) Diastolic blood pressure 72 mm[Hg] 72 mm[Hg] eCW1 ([facility]) Systolic blood pressure 146 mm[Hg] 146 mm[Hg] M EDENT [facility]) Elevated Respiratory rate 18 /min 18 /min [facility] ( [facility]) Oxygen saturation in Arterial blood by Pulse oximetry 96 % 96 % [facility] ([facility]) Body weight 299.00 [lb_av] 299.00 [lb_av] MEDEN T ([facility]) Body weight 135.626 kg 135.626 kg [facility] ([facility]) Diastolic blood pressure 80 mm[Hg] 80 mm[Hg] [facility] ([facility]) Elevated Heart rate 75 /min 75 /min [facility] ([facility]) Body temperature 96.8 [degF] 96.8 [degF] [facility] ([facility]) Body height 65 [in_i] 65 [in_i] [facility] ([facility]) 5'5" Body mass index (BMI) [Ratio] 49.8 kg/m2 49.8 k g/m2 [facility] ([facility]) Body surface area Derived from formula 2.35 m2 2.35 m2 [facility] ([facility]) Body weight 296 [lb_av] 296 [lb_av] eCW1 ([facility]) Body weight 134.26 kg 134.26 kg W1 ([facility]) Body height 66 [in_i] 66 [in_i] eCW1 ([facility]) Body mass index (BMI) [Ratio] 47.77 kg/m2 47.77 kg/m2 W1 ([facility]) Systolic blood pressure 130 mm[Hg] 130 mm[Hg] e CW1 ([facility]) Diastolic blood pressure 90 mm[Hg] 90 mm[Hg] eCW1 ([facility]) Systolic blood pressure 140 mm[Hg] 140 mm[Hg] M EDENT ([facility]) Diastolic blood pressure 70 mm[Hg] 70 mm[Hg] [facility] ([facility]) Heart rate 69 /min 69 /min [facility] ([facility]) Body temperature 98.2 [degF] 98.2 [degF] [facility] ([facility]) Respiratory rate 18 /min 18 /min [facility] ( [facility]) Oxygen saturation in Arterial blood by Pulse oximetry 98 % 98 % [facility] ([facility]) Body weight 292.00 [lb_av] 292.00 [lb_av] MEDEN T ([facility]) Body weight 132.451 kg 132.451 kg [facility] ([facility]) Body height 65 [in_i] 65 [in_i] [facility] ([facility]) 5'5" Body mass index (BMI) [Ratio] 48.6 kg/m2 48.6 k g/m2 [facility] ([facility]) Body surface area Derived from formula 2.32 m2 2.32 m2 [facility] ([facility]) Body height 0.00 in Normal (applies to non-numeric resu lts) 0.00 in [facility] ([facility]) Body weight Measured 0.00 lbs Normal (applies to n on-numeric results) 0.00 lbs [facility] ([facility]) Body mass index (BMI) [Ratio] 0.00 kg/m2 No rmal (applies to non-numeric results) 0.00 kg/m2 [facility] ([facility]) Systolic blood pressure 0 mm[Hg] Normal (applies t o non-numeric results) 0 mm[Hg] [facility] ([facility]) Diastolic blood pressure 0 mm[Hg] Normal (applies to non-numeric results) 0 mm[Hg] [facility] ([facility]) Body weight 277 [lb_av] 277 [lb_av] eCW1 ([facility]) Body height 66 [in_i] 66 [in_i] eCW1 ([facility]) Body mass index (BMI) [Ratio] 44.7 kg/m2 44.7 k g/m2 W1 ([facility]) Systolic blood pressure 140 mm[Hg] 140 mm[Hg] e CW1 ([facility]) Diastolic blood pressure 86 mm[Hg] 86 mm[Hg] eCW1 ([facility]) Systolic blood pressure 152 mm[Hg] 152 mm[Hg] e CW1 ([facility]) Diastolic blood pressure 84 mm[Hg] 84 mm[Hg] eCW1 ([facility]) Body weight 297.6 [lb_av] 297.6 [lb_av] eCW1 ([facility]) Body height 66 [in_i] 66 [in_i] eCW1 ([facility]) Body mass index (BMI) [Ratio] 48.034 kg/m2 48.0 34 kg/m2 eCW1 ([facility]) Systolic blood pressure 132 mm[Hg] 132 mm[Hg] e CW1 ([facility]) Diastolic blood pressure 90 mm[Hg] 90 mm[Hg] eCW1 ([facility]) Body weight 294.2 [lb_av] 294.2 [lb_av] eCW1 ([facility]) Body weight 133.45 kg 133.45 kg eCW1 ([facility]) Body height 66 [in_i] 66 [in_i] eCW1 ([facility]) Body mass index (BMI) [Ratio] 47.485 kg/m2 47.4 85 kg/m2 eCW1 ([facility]) Systolic blood pressure 144 mm[Hg] 144 mm[Hg] e CW1 ([facility]) Diastolic blood pressure 90 mm[Hg] 90 mm[Hg] eCW1 ([facility]) Body height 0.00 in Normal (applies to non-numeric resu lts) 0.00 in [facility] ([facility]) Body weight Measured 0.00 lbs Normal (applies to n on-numeric results) 0.00 lbs [facility] ([facility]) Body mass index (BMI) [Ratio] 0.00 kg/m2 No rmal (applies to non-numeric results) 0.00 kg/m2 [facility] ([facility]) Systolic blood pressure 0 mm[Hg] Normal (applies t o non-numeric results) 0 mm[Hg] [facility] ([facility]) Diastolic blood pressure 0 mm[Hg] Normal (applies to non-numeric results) 0 mm[Hg] [facility] ([facility]) Body weight 292 [lb_av] 292 [lb_av] eCW1 ([facility]) Body height 66 [in_i] 66 [in_i] eCW1 ([facility]) Body mass index (BMI) [Ratio] 47.13 kg/m2 47.13 kg/m2 eCW1 ([facility]) Systolic blood pressure 128 mm[Hg] 128 mm[Hg] e CW1 ([facility]) Diastolic blood pressure 78 mm[Hg] 78 mm[Hg] eCW1 ([facility]) Body weight 290 [lb_av] 290 [lb_av] eCW1 ([facility]) Body weight 131.54 kg 131.54 kg eCW1 ([facility]) Body height 66 [in_i] 66 [in_i] eCW1 ([facility]) Body mass index (BMI) [Ratio] 46.807 kg/m2 46.8 07 kg/m2 eCW1 ([facility]) Systolic blood pressure 140 mm[Hg] 140 mm[Hg] e CW1 ([facility]) Diastolic blood pressure 98 mm[Hg] 98 mm[Hg] eCW1 ([facility]) Body weight 288.2 [lb_av] 288.2 [lb_av] eCW1 ([facility]) Body weight 130.73 kg 130.73 kg eCW1 ([facility]) Body height 66 [in_i] 66 [in_i] eCW1 ([facility]) Body mass index (BMI) [Ratio] 46.517 kg/m2 46.5 17 kg/m2 eCW1 ([facility]) Systolic blood pressure 118 mm[Hg] 118 mm[Hg] e CW1 ([facility]) Diastolic blood pressure 80 mm[Hg] 80 mm[Hg] eCW1 ([facility]) Body height 0.00 in Normal (applies to non-numeric resu lts) [facility] Body weight Measured 0.00 lbs Normal (applies to n on-numeric results) 0.00 lbs [facility]) Body mass index (BMI) [Ratio] 0.00 kg/m2 No rmal (applies to non-numeric results) 0.00 kg/m2 [facility] ([facility]) Systolic blood pressure 0 mm[Hg] Normal (applies t o non-numeric results) 0 mm[Hg] [facility] ([facility]) Diastolic blood pressure 0 mm[Hg] Normal (applies to non-numeric results) 0 mm[Hg] [facility] ([facility]) Body weight 287 [lb_av] 287 [lb_av] eCW1 ([facility]) Body height 66 [in_i] 66 [in_i] eCW1 ([facility]) Body mass index (BMI) [Ratio] 46.323 kg/m2 46.3 23 kg/m2 W1 ([facility]) Systolic blood pressure 136 mm[Hg] 136 mm[Hg] e CW1 ([facility]) Diastolic blood pressure 76 mm[Hg] 76 mm[Hg] eCW1 ([facility]) Body weight 286 [lb_av] 286 [lb_av] eCW1 ([facility]) Body weight 129.73 kg 129.73 kg W1 ([facility]) Body height 66 [in_i] 66 [in_i] eCW1 ([facility]) Body mass index (BMI) [Ratio] 46.162 kg/m2 46.1 62 kg/m2 eCW1 ([facility]) Systolic blood pressure 124 mm[Hg] 124 mm[Hg] e CW1 ([facility]) Diastolic blood pressure 72 mm[Hg] 72 mm[Hg] eCW1 ([facility]) Body height 0.00 in Normal (applies to non-numeric resu lts) 0.00 in [facility] ([facility]) Body weight Measured 0.00 lbs Normal (applies to n on-numeric results) 0.00 lbs [facility] ([facility]) Body mass index (BMI) [Ratio] 0.00 kg/m2 No rmal (applies to non-numeric results) 0.00 kg/m2 [facility] ([facility]) Systolic blood pressure 0 mm[Hg] Normal (applies t o non-numeric results) 0 mm[Hg] [facility] ([facility]) Diastolic blood pressure 0 mm[Hg] Normal (applies to non-numeric results) 0 mm[Hg] [facility] ([facility]) Body weight 284.0 [lb_av] 284.0 [lb_av] eCW1 ([facility]) Body height 66 [in_i] 66 [in_i] eCW1 ([facility]) Body mass index (BMI) [Ratio] 45.839 kg/m2 45.8 39 kg/m2 eCW1 ([facility]) Systolic blood pressure 110 mm[Hg] 110 mm[Hg] e CW1 ([facility]) Diastolic blood pressure 76 mm[Hg] 76 mm[Hg] eCW1 ([facility]) Body height 0.00 in Normal (applies to non-numeric resu lts) 0.00 in [facility] ([facility]) Body weight Measured 0.00 lbs Normal (applies to n on-numeric results) 0.00 lbs [facility] ([facility]) Body mass index (BMI) [Ratio] 0.00 kg/m2 No rmal (applies to non-numeric results) 0.00 kg/m2 [facility] ([facility]) Systolic blood pressure 0 mm[Hg] Normal (applies t o non-numeric results) 0 mm[Hg] [facility] ([facility]) Diastolic blood pressure 0 mm[Hg] Normal (applies to non-numeric results) 0 mm[Hg] [facility] ([facility]) Body height 0.00 in Normal (applies to non-numeric resu lts) 0.00 in [facility] ([facility]) Body weight Measured 0.00 lbs Normal (applies to n on-numeric results) 0.00 lbs [facility] ([facility]) Body mass index (BMI) [Ratio] 0.00 kg/m2 No rmal (applies to non-numeric results) 0.00 kg/m2 [facility] ([facility]) Systolic blood pressure 0 mm[Hg] Normal (applies t o non-numeric results) 0 mm[Hg] [facility] ([facility]) Diastolic blood pressure 0 mm[Hg] Normal (applies to non-numeric results) 0 mm[Hg] [facility] ([facility]) ID Date Data Source [id number] 03/02/2020 10:20:[address] [facility] Name Value Range Interpretation Code Description Data Source(s) TRANSFER FROM [facility] Patient Treatment Plan of Care Planned Activity Planned Date Details Description Data Source (s) Aimovig 140 MG/ML SOAJ 09/16/2020 12:00:00 AM EDT [facility] pregabalin 75 MG Oral Capsule 08/18/2020 12:00:00 AM EDT [facility] valacyclovir 500 MG Oral Tablet [Valtrex] 04/27/2020 12:00:00 AM ES T eCW1 ([facility]) valacyclovir 500 MG Oral Tablet [Valtrex] 04/27/2020 12:00:00 AM ES T eCW1 ([facility]) Sumatriptan 100 MG Oral Tablet 04/04/2020 12:00:00 AM EST eCW1 ([facility]) Metronidazole 500 MG Oral Tablet 03/10/2020 12:00:00 AM EST eCW1 ([facility]) Metronidazole 500 MG Oral Tablet 03/10/2020 12:00:00 AM EST eCW1 ([facility]) Acetaminophen 325 MG / butalbital 50 MG / Caffeine 40 MG Oral Capsule [[facility]] 02/28/2020 12:00:00 AM EST eCW1 ([facility]) Acetaminophen 325 MG / butalbital 50 MG / Caffeine 40 MG Oral Capsule [[facility]] 02/28/2020 12:00:00 AM EST eCW1 ([facility]) Amoxicillin 875 MG Oral Tablet 11/06/2019 12:00:00 AM EDT [facility] Cholecalciferol 1000 UNT Oral Tablet 10/21/2019 12:00:00 AM EDT [facility] Aspirin 81 MG Delayed Release Oral Tablet [facility] Vit-Fe Fumarate-FA ( 1+1 PO) [facility]
[2020-12-18 18:30] VITALS: BP 143/70
[2020-12-18] MEDS ORDERED: ALBU83IN INH (18:56)
[2020-12-18] MEDS ORDERED: PRED20TA PO ×2 (18:58→19:09)
[2020-12-18] MEDS ORDERED: MUCI60TA7 PO (18:59)
[2020-12-19] MEDS ORDERED: AERO1MIS2 XX (12:22)
== END 2020-12-18 19:25 | disposition home or self-care (01) ==
LOC: M ED 14:59
DX: J45.901 Unspecified asthma with (acute) exacerbation (principal); B97.4 Respiratory syncytial virus as the cause of diseases classified elsewhere; I10 Essential (primary) hypertension; F20.9 Schizophrenia, unspecified; Z79.899 Other long term (current) drug therapy; Z88.5 Allergy status to narcotic agent; Z88.8 Allergy status to other drugs, medicaments and biological substances; Z91.018 Allergy to other foods; Z91.048 Other nonmedicinal substance allergy status
CPT/HCPCS: 71045; 80047; 85025; 87798; 94640; 96365; 99284; J3475

== ENCOUNTER 2020-12-24 13:44 | Emergency (ER) | payer OTHER ==
[~2020-12-24] VITALS: Ht 167.6 cm; Wt 131.2 kg
[~2020-12-24 13:44] MED LIST changes: +AERO1MIS2 XX; +ALBU83IN INH; +MUCI60TA7 PO
[2020-12-24] MEDS ORDERED: ONDANSETRON 4MG/2ML VIAL IV ONE (15:25)
[2020-12-24] MEDS ORDERED: NS 1,000 ML IV ONE (15:25)
--- OUTSIDE RECORDS SUMMARY | 2020-12-24 15:26 | CCD | Continuity of Care Document ---
Author Author Leanna CAMARGO M.D. Organization Unknown Address [address] [place] [id number] Phone [phone] Care Team Providers Care Levers Lace Machine Operator Name Role Phone Trav Camargo M.D. AUTM [phone] [facility] Orthopedics AUTM [phone] [facility] AUTM [phone] Debra Canales PHOTOCOPY OPERATOR AUTM [phone] [facility] Rheumatology AUTM [phone] Tim Guthrie AUTM Unavailable [facility] Rheumatology AUTM [phone] [facility] Physical Therapy AUTM [phone] Kyaw Contreras MD AUTM Formerly [facility] Audiology & Physical Therapy AUTM [phone] [facility] Cardiology- [place] [facility] AUTM [phone] Problems Active Problems Provider Date Cluster B personality disorder Mercedes Martinez NP Onset: Mild mental handicap Mercedes Martinez NP Onset: 07/31/2016 Stimulant dependence Mercedes Martinez NP Onset: 07/31/2016 Vitamin D deficiency Trav Camargo MD Onset: 04/17/2017 Cannabis abuse, uncomplicated Kendell Albany, [facility] Onset: Alcohol abuse, uncomplicated Kendell Albany, [facility] Onset: Social History Type Date Description Comments [...] 40 [place] Unable to assess criticality 07/18/2016 [place] Dye Unable to assess criticality 07/18/2016 Gabapentin [...] CPT Code Status Date Vaccine Lot # [id number] Given 12/03/2016 Influenza (>35 months) P.F. Vaccine [...] Result H/L Range Note CBC With Differential 12/18/2020 [facility] White Blood Count 8.9 10 Normal 4.0-10.0 Red Blood Count 5.26 10 Normal 4.00-5.40 Hemoglobin 15.3 g/dL Normal 12.0-15.5 Hematocrit 45.8 % Normal 36.0-47.0 Mean Corpuscular Volume 87.1 fl Normal 80.0-96.0 Mean Corpuscular Hemoglobin 29.1 pg Normal 27.0-33.0 Mean Corpuscular HGB Conc 33.4 g/dL Normal 32.0-36.5 Red Cell Distribution Width 14.1 % Normal 11.5-14.5 Platelet Count, Automated TNP 10 Normal 150-450 1 Neutrophils % 75.9 % High 36.0-66.0 Lymph % 16.4 % Low 24.0-44.0 Grimes % 3.5 % Normal 2.0-8.0 Eos % 3.4 % High 0.0-3.0 Baso % 0.6 % Normal 0.0-1.0 Immature Granulocyte % 0.2 % Normal 0-3.0 Nucleated Red Blood Cell % 0.0 % Normal 0-0 Neutrophils # 6.7 10 Normal 1.5-8.5 Lymph # 1.5 10 Normal 1.5-5.0 Grimes # 0.3 10 Normal 0.0-0.8 Eos # 0.3 10 Normal 0.0-0.5 Baso # 0.1 10 Normal 0.0-0.2 Istat Chem8+ Panel 12/18/2020 [facility] iSTAT HCT 47.0 % Normal 38.0-51.0 iSTAT Glucose 111 mg/dL High 70-105 iSTAT Sodium 139 mEq/L Normal 136-145 iSTAT Potassium 4.1 mEq/L Normal 3.5-5.1 iSTAT CA++ 4.5 mg/dL Normal 4.5-5.3 iSTAT Chloride 103 mEq/L Normal 98-109 iSTAT Co2 26.0 MM/L Normal 23.0-27.0 iSTAT BUN 10 mg/dL Normal 8-26 iSTAT Creatinine 0.8 mg/dL Normal 0.6-1.3 CBC With Differential 12/04/2020 [facility] White Blood Count 9.7 10 Normal 4.0-10.0 [...] 36.0-66.0 Lymph % 11.0 % Low 24.0-44.0 Grimes % 4.8 % Normal 2.0-8.0 Eos % 1.2 % Normal 0.0-3.0 Baso % 0.7 % Normal 0.0-1.0 Immature Granulocyte % 0.4 % Normal 0-3.0 Nucleated Red Blood Cell % 0.0 % Normal 0-0 Neutrophils # 7.9 10 Normal 1.5-8.5 Lymph # 1.1 10 Low 1.5-5.0 Grimes # 0.5 10 Normal 0.0-0.8 Eos # 0.1 10 Normal 0.0-0.5 Baso # 0.1 10 Normal 0.0-0.2 Comprehensive Metabolic Profil 12/04/2020 [facility] Glucose, Fasting 104 mg/dL High 70-100 Blood Urea Nitrogen 10 mg/dL Normal 7-18 Creatinine For GFR 0.91 mg/dL Normal 0.55-1.30 Glomerular Filtration Rate > 60.0 Normal >58 2 Sodium Level 142 mEq/L Normal 136-145 Potassium [...] 0.9 Low 1.2-2.2 Cardiac Marker Panel 12/04/2020 [facility] CPK Creatine Phosphokinase 72 U/L Normal 26-192 CK-MB Value Mass 1.5 NG/ML Normal <3.6 MB/CK Relative Index 2.08 Normal < Or =4 3 Troponin I < 0.02 NG/ML Normal < 0.10 4 Respiratory Panel 12/04/2020 [facility] Respiratory Panel This respiratory <SEE NOTE> 5 Beta-2 Glycoprotein 1 Loni Letha 10/21/2020 [facility] Beta-2 Glycoprotein I Loni Igg <9 Normal 0-20 6 Beta-2 Glycoprotein I Loni Iga <9 Normal 0-25 7 Beta-2 Glycoprotein I Loni Igm 10 Normal 0-32 8 Laboratory test finding 10/21/2020 [facility] Anti-Histone Antibodies 3.1 units High 0.0-0.9 9 Anti DS-Dna AB By Crithidia Negative Normal Negative 10 Janey Titer & Pattern Negative Normal . 11 Anti Scleroderma Antibodies <0.2 AI Normal 0.0-0.9 12 Anti-Cardiolipin Antibodies 10/21/2020 [facility] Cardiolipin Iga Antibody <9 APLU/mL Normal 0-11 13 Cardiolipin Igg Antibody 10 GPLU/mL Normal 0-14 14 Cardiolipin Igm Antibody 9 MPLU/mL Normal 0-12 15 Anti-Sjogrens A&B Antibodies 10/21/2020 [facility] C Ssa Sjogrens A <0.2 AI Normal 0.0-0.9 SSB Sjogrens B <0.2 AI Normal 0.0-0.9 Laboratory test finding 10/21/2020 [facility] Anti Centromere Antibody <0.2 AI Normal 0.0-0.9 16 Anti-U1 CNC MAINTENANCE TECHNICIAN AB <20 units Normal <20 17 Anti Camargo(Sm) AB <20 units Normal <20 18 Laboratory test finding 10/02/2020 [facility] Phosphorus Level 3.6 mg/dL Normal 2.5-4.9 19 CPK Creatine Phosphokinase 43 U/L Normal 26-192 2 0 Magnesium Level 2.1 mg/dL Normal 1.8-2.4 21 Iron (Fe) 50 g/dL Normal 50-170 22 Complement C3 148 mg/dL Normal 90-180 23 Complement C4 23 mg/dL Normal 10-40 24 Thyroid Stimulating Hormone 0.828 uIU/ML Normal 0.358-3.740 25 Vitamin B12 Level 710 pg/mL Normal 247-911 26 Total 25(Oh) Vitamin D 24.7 NG/ML Low 30.0-100.0 27 C Reactive Protein Quantitativ 1.67 mg/dL High 0.00-0.30 28 Lupus Screen Confirmation 10/02/2020 [facility] Hexagonal Phase Phospholipid 0 sec Normal 0-11 Comment For Hexagonal Confirm1 (SEE NOTE) Normal . 29 Laboratory test finding 10/02/2020 [facility] Lupus Confirm Stago 1.27 High 0.00-1.20 30 Lupus Type Anticoagulant Scree 10/02/2020 [facility] PTT Lupus Type Anticoag Screen 1.4 High 0-1.2 31 Laboratory test finding 10/02/2020 [facility] Erythrocyte Sedimentation Rate 45 mm/hr High 0-20 Complement Total (CH50) > 60 U/mL Normal >41 32 CBC With Differential 10/02/2020 [facility] White Blood Count 7.8 10 Normal [...] 36.0-66.0 Lymph % 27.9 % Normal 24.0-44.0 Grimes % 6.4 % Normal 2.0-8.0 Eos % 5.6 % High 0.0-3.0 Baso % 0.4 % Normal 0.0-1.0 Immature Granulocyte % 0.3 % Normal 0-3.0 Nucleated Red Blood Cell % 0.0 % Normal 0-0 Neutrophils # 4.6 10 Normal 1.5-8.5 Lymph # 2.2 10 Normal 1.5-5.0 Grimes # 0.5 10 Normal 0.0-0.8 Eos # 0.4 10 Normal 0.0-0.5 Baso # 0.0 10 Normal 0.0-0.2 CBC W/Automated Diff 06/19/2020 [facility] White Blood Count 7.1 10 Normal [...] 36.0-66.0 Lymph % 28.2 % Normal 24.0-44.0 Grimes % 5.5 % Normal 2.0-8.0 Eos % 8.1 % High 0.0-3.0 Baso % 1.0 % Normal 0.0-1.0 Immature Granulocyte % 0.3 % Normal 0-3.0 Nucleated Red Blood Cell % 0.0 % Normal 0-0 Neutrophils # 4.0 10 Normal 1.5-8.5 Lymph # 2.0 10 Normal 1.5-5.0 Grimes # 0.4 10 Normal 0.0-0.8 Eos # 0.6 10 High 0.0-0.5 Baso # 0.1 10 Normal 0.0-0.2 Laboratory test finding 06/19/2020 [facility] Erythrocyte Sedimentation Rate 41 mm/hr High 0-20 C Reactive Protein Quantitativ 1.13 mg/dL High 0.00-0.30 33 Rheumatoid Factor Quant < 10.0 IU/mL Normal <15.0 34 Comprehensive Metabolic Profil 06/19/2020 [facility] Glucose, Fasting 83 mg/dL Normal 70-100 Blood Urea Nitrogen 22 mg/dL High 7-18 Creatinine For GFR 0.83 mg/dL Normal 0.55-1.30 Glomerular Filtration Rate > 60.0 Normal >60 3 5 Sodium Level 139 mEq/L Normal 136-145 Potassium [...] Ratio 1.0 Low 1.2-2.2 Antinuclear Antibodies 06/19/2020 [facility] Antinuclear Antibodies Direct Positive Abnormal Negative Anti Double Strand-Dna AB 32 IU/mL High 0-9 36 CNC MAINTENANCE TECHNICIAN Antibodies <0.2 AI Normal 0.0-0.9 Camargo Antibodies <0.2 AI Normal 0.0-0.9 Sjogren's Anti SS-A <0.2 AI Normal 0.0-0.9 Sjogren's Anti SS-B <0.2 AI Normal 0.0-0.9 Janey Comment (SEE NOTE) Normal . 37 1 Platelet count invalid due t o platelet clumping. Suggest ordering platelet blue test to confirm clumping is not due to EDTA. 2 Units are mL/min/1.73 m2 Chronic Kidney Disease Staging per NKF: Stage I & II GFR >=60 Normal to Mildly Decreased Stage III GFR 30-59 Moderately Decreased Stage IV GFR 15-29 Severely Decreased Stage V GFR <15 Very Little GFR Left ESRD GFR <15 on MAPPER 3 DIAGNOSIS CRITERIA MMB ng/ml Relative Index (RI) NON-AMI < or = 5 N/A RAYA ZONE > 5 < or = 4 AMI > 5 > 4 4 Troponin I Reference Interva l for Siemens [place] LOCI: 99th Percentile= 0.00-0.045 ng/ml Risk Stratification: <= 0.10 ng/ml Decreased Risk for Adverse Clinical Events. 0.10-1.50 ng/ml Increased Risk for Adv erse Clinical Events. Evaluation of additional criterion and/or repeat testing in 2-6 hours is suggested to rule out myocardial damage. >= 1.50 ng/ml Indicative of Myocardial Injury. 5 This respiratory PCR panel d etects Influenza [...] risk infants. ORGANISM 1: RESPIRATORY SYNCYTIAL VIRUS 6 Result Units: GPI IgG units . The reference interval reflects a 3SD or 99th percentile interval, which is thought to represent a potentially clinically significant result in accordance with the International Consensus Statement on the classification criteria for definitive antiphospholipid syndrome (APS). J Thromb Haem 2006;4:295-306. 7 Result Units: GPI IgA units . The reference interval reflects a 3SD or 99th percentile interval, which is thought to represent a potentially clinically significant result in accordance with the International Consensus Statement on the classification criteria for definitive antiphospholipid syndrome (APS). J Thromb Haem 2006;4:295-306. 8 Result Units: GPI IgM units . The reference interval reflects a 3SD or 99th percentile interval, which is thought to represent a potentially clinically significant result in accordance with the International Consensus Statement on the classification criteria for definitive antiphospholipid syndrome (APS). J Thromb Haem 2006;4:295-306. 9 Negative <1.0 Weak Positive 1.0 - 1.5 Moderate Positive 1.6 - 2.5 Strong Positive >2.5 10 Specimen Comment: Test(s) 52 9786-[id number] CNC MAINTENANCE TECHNICIAN Ab (RDL) Specimen Comment: was developed and its performance characteristics Specimen Comment: determined by [facility]. It has not been cleared or approved Specimen Comment: by the Food and Drug Administration. 11 Negative <1:80 Borderline 1:80 Positive >1:80 ICAP nomenclature: AC-0 For more information about Hep-2 cell patterns use ANApatterns.org, the official website for the International Consensus on Antinuclear Antibody (JANEY) Patterns (ICAP). Performed at: - [facility] [id number] Environmental Communications Specialist: Pretty Swain MD, Phone: [phone] Performed at: - [facility] [id number] Environmental Communications Specialist: Prabhakar Hudson MD, Phone: [phone] Performed at: [facility] [address] [place] [id number] Environmental Communications Specialist: Bora Wu MD, Phone: [phone] 12 Specimen Comment: Test(s) 52 [id number] CNC MAINTENANCE TECHNICIAN Ab (RDL) Specimen Comment: was developed and its performance characteristics Specimen Comment: determined by [facility]. It has not been cleared or approved Specimen Comment: by the Food and Drug Administration. 13 Negative: <12 Indeterminate: 12 - 20 Low-Med Positive: >20 - 80 High Positive: >80 14 Negative: <15 Indeterminate: 15 - 20 Low-Med Positive: >20 - 80 High Positive: >80 15 Negative: <13 Indeterminate: 13 - 20 Low-Med Positive: >20 - 80 High Positive: >80 16 Specimen Comment: Test(s) 52 [id number] CNC MAINTENANCE TECHNICIAN Ab (RDL) Specimen Comment: was developed and its performance characteristics Specimen Comment: determined by [facility]. It has not been cleared or approved Specimen Comment: by the Food and Drug Administration. 17 Negative: <20 Weak Positive: 20 - 39 Moderate Positive: 40 - 80 Strong Positive: >80 18 Negative: <20 Weak Positive: 20 - 39 Moderate Positive: 40 - 80 Strong Positive: >80 19 note:<nlbl:demographic_chang ed> 20 note:<nlbl:demographic_chang ed> 21 note:<nlbl:demographic_chang ed> 22 note:<nlbl:demographic_chang ed> 23 note:<nlbl:demographic_chang ed> 24 note:<nlbl:demographic_[facility] ed> 25 note:<nlbl:demographic_chang ed> 26 VITAMIN B12 NORMAL RANGE NORMAL 247 - 911 PG/ML INDETERMINATE 211 - 246 PG/ML DEFICIENT LESS THAN 211 PG/ML 27 note:<nlbl:demographic_[facility] ed> 28 note:<nlbl:demographic_[facility] ed> 29 . Results do not indicate the presence of a Lupus Anticoagulant: abnormal high screening results (PTT-LA, dRVVT, mixing studies), may be due to medication (heparin, warfarin, aspirin), Factor inhibitors, anticardiolipin antibodies, or poor specimen integrity. Performed at: [address] [id number] Environmental Communications Specialist: Prabhakar Hudson MD, Phone: [phone] NORMALIZED RATIO IS EQUAL TO OR GREATER THAN 1.20 LA IS PRESENT. SPECIMEN WILL BE SENT TO [facility] [place], [address] Leti Kim. [id number] REFERE [facility] FOR CONFIRMATION. 31 RESULT IS 1.2 OR GREATER, FURTHER TESTING [...] coagulation factor deficiency or a specific inhibitor. 32 Age Male Female 1 - 30 days [...] determine out of range values. Performed at: - [facility] [id number] Environmental Communications Specialist: Pretty Swain MD, Phone: [phone] 33 note:<nlbl:demographic_chang ed> 34 note:<nlbl:demographic_chang ed> 35 Units are mL/min/1.73 m2 Chronic Kidney Disease Staging per NKF: Stage I & II GFR >=60 Normal to Mildly Decreased Stage III GFR 30-59 Moderately Decreased Stage IV GFR 15-29 Severely Decreased Stage V GFR <15 Very Little GFR Left ESRD GFR <15 on MAPPER 36 Negative <5 Equivocal 5 - 9 Positive >9 37 . Autoantibody Disease Association Condition Frequency -------- [...] (anti-Camargo) SLE 15 - 30% ------- --------- CNC MAINTENANCE TECHNICIAN Mixed Connective Tissue Disease 95% (U1 nRNP, SLE 30 - 50% anti-ribonucleoprotein) Polymyositis and/or Dermatomyositis 20% -------- --------- Scl-70 (antiDNA Scleroderma (diffuse) 20 - 35% topoisomerase) Crest 13% -------- --------- Edel-1 Polymyositis and/or Dermatomyositis 20 - 40% -------- --------- Centromere B Scleroderma - Crest variant 80% Performed at: RN - [facility] [address] [id number] Environmental Communications Specialist: Pretty Swain MD, Phone: [phone] Procedures Date Code Description Status 06/29/2020 62139 Office/Outpatient Established Lo w MDM 20-29 Min [...] 9:00 am - Trav Camargo MD at [facility] * 01/01/2021 3:00 pm - Trav Camargo MD at [facility] Functional Status Functional Condition Comment Date Status Hearing Aid in both ears Active Mental Status Description No Information Available Referrals Refer to Reason for Referral Status Appt Date [facility] Rheumatology 39 y/o F with hx of elevated JANEY, pls eval and treat. 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 Could be psychiatric related. Rule out cardiac etiology. Closed 10/12/[id number] [facility] [address] [place] [address] [phone]
--- OUTSIDE RECORDS SUMMARY | 2020-12-24 15:26 | CCD | Continuity of Care Document ---
Author Author Leanna CAMARGO M.D. Organization Unknown Address [address] [place] [id number] Phone [phone] Care Team Providers Care Apparel Sales Associate Name Role Phone Trav Camargo M.D. AUTM [phone] [facility] Orthopedics AUTM [phone] [place] [facility] AUTM [phone] Debra Canales ASSIGNMENT DESK ASSISTANT AUTM [phone] [facility] Rheumatology AUTM [phone] Tim Guthrie AUTM Unavailable [facility] Rheumatology AUTM [phone] [facility] Physical Therapy AUTM [phone] Kyaw Contreras MD AUTM [facility] Audiology & Physical Therapy AUTM [phone] [facility] Cardiology- [place] Office AUTM Problems Active Problems Provider Date Cluster B personality disorder Mercedes Martinez NP Onset: Mild mental handicap Mercedes Martinez NP Onset: 07/31/2016 Stimulant dependence Mercedes Martinez NP Onset: 07/31/2016 Vitamin D deficiency Trav Camargo MD Onset: 04/17/2017 Cannabis abuse, uncomplicated Kendell Talbot, HEALTH UNIT SUPERVISOR Onset: Alcohol abuse, uncomplicated Kendell Talbot, HEALTH UNIT SUPERVISOR Onset: Social History Type Date Description Comments [...] 40 Retana Unable to assess criticality 07/18/2016 Wiley Dye Unable to assess criticality 07/18/2016 Gabapentin [...] CPT Code Status Date Vaccine Lot # [id number] Given 12/03/2016 Influenza (>35 months) P.F. Vaccine [...] H/L Range Note CBC With Differential 12/18/2020 [facility] White Blood Count 8.9 10 Normal [...] 36.0-66.0 Lymph % 16.4 % Low 24.0-44.0 Owen % 3.5 % Normal 2.0-8.0 Eos % 3.4 % High 0.0-3.0 Baso % 0.6 % Normal 0.0-1.0 Immature Granulocyte % 0.2 % Normal 0-3.0 Nucleated Red Blood Cell % 0.0 % Normal 0-0 Neutrophils # 6.7 10 Normal 1.5-8.5 Lymph # 1.5 10 Normal 1.5-5.0 Owen # 0.3 10 Normal 0.0-0.8 Eos # 0.3 10 Normal 0.0-0.5 Baso # 0.1 10 Normal 0.0-0.2 Istat Chem8+ Panel 12/18/2020 [facility] iSTAT HCT 47.0 % Normal 38.0-51.0 iSTAT Glucose 111 mg/dL High 70-105 iSTAT Sodium 139 mEq/L Normal 136-145 iSTAT Potassium 4.1 mEq/L Normal 3.5-5.1 iSTAT CA++ 4.5 mg/dL Normal 4.5-5.3 iSTAT Chloride 103 mEq/L Normal 98-109 iSTAT Co2 26.0 MM/L Normal 23.0-27.0 iSTAT BUN 10 mg/dL Normal 8-26 iSTAT Creatinine 0.8 mg/dL Normal 0.6-1.3 CBC With Differential 12/04/2020 [facility] White Blood Count 9.7 10 Normal [...] 36.0-66.0 Lymph % 11.0 % Low 24.0-44.0 Owen % 4.8 % Normal 2.0-8.0 Eos % 1.2 % Normal 0.0-3.0 Baso % 0.7 % Normal 0.0-1.0 Immature Granulocyte % 0.4 % Normal 0-3.0 Nucleated Red Blood Cell % 0.0 % Normal 0-0 Neutrophils # 7.9 10 Normal 1.5-8.5 Lymph # 1.1 10 Low 1.5-5.0 Owen # 0.5 10 Normal 0.0-0.8 Eos # 0.1 10 Normal 0.0-0.5 Baso # 0.1 10 Normal 0.0-0.2 Comprehensive Metabolic Profil 12/04/2020 [facility] Glucose, Fasting 104 mg/dL High 70-100 [...] 0.9 Low 1.2-2.2 Cardiac Marker Panel 12/04/2020 [facility] CPK Creatine Phosphokinase 72 U/L Normal 26-192 CK-MB Value Mass 1.5 NG/ML Normal <3.6 MB/CK Relative Index 2.08 Normal < Or =4 3 Troponin I < 0.02 NG/ML Normal < 0.10 4 Respiratory Panel 12/04/2020 [facility] Respiratory Panel This respiratory <SEE NOTE> 5 Beta-2 Glycoprotein 1 Loni Letha 10/21/2020 [facility] Beta-2 Glycoprotein I Loni Igg <9 Normal 0-20 6 Beta-2 Glycoprotein I Loni Iga <9 Normal 0-25 7 Beta-2 Glycoprotein I Loni Igm 10 Normal 0-32 8 Laboratory test finding 10/21/2020 [facility] Anti-Histone Antibodies 3.1 units High 0.0-0.9 9 Anti DS-Dna AB By Crithidia Negative Normal Negative 10 Janey Titer & Pattern Negative Normal . 11 Anti Scleroderma Antibodies <0.2 AI Normal 0.0-0.9 12 Anti-Cardiolipin Antibodies 10/21/2020 [facility] Cardiolipin Iga Antibody <9 APLU/mL Normal 0-11 13 Cardiolipin Igg Antibody 10 GPLU/mL Normal 0-14 14 Cardiolipin Igm Antibody 9 MPLU/mL Normal 0-12 15 Anti-Sjogrens A&B Antibodies 10/21/2020 [facility] C Ssa Sjogrens A <0.2 AI Normal 0.0-0.9 SSB Sjogrens B <0.2 AI Normal 0.0-0.9 Laboratory test finding 10/21/2020 [facility] Anti Centromere Antibody <0.2 AI Normal 0.0-0.9 16 Anti-U1 TYPESETTER PERFORATOR OPERATOR AB <20 units Normal <20 17 Anti Camargo(Sm) AB <20 units Normal <20 18 Laboratory test finding 10/02/2020 [facility] Phosphorus Level 3.6 mg/dL Normal 2.5-4.9 [...] High 0.00-0.30 28 Lupus Screen Confirmation 10/02/2020 [facility] Hexagonal Phase Phospholipid 0 sec Normal 0-11 Comment For Hexagonal Confirm1 (SEE NOTE) Normal . 29 Laboratory test finding 10/02/2020 [facility] Lupus Confirm Stago 1.27 High 0.00-1.20 30 Lupus Type Anticoagulant Scree 10/02/2020 [facility] PTT Lupus Type Anticoag Screen 1.4 High 0-1.2 31 Laboratory test finding 10/02/2020 [facility] Erythrocyte Sedimentation Rate 45 mm/hr High 0-20 Complement Total (CH50) > 60 U/mL Normal >41 32 CBC With Differential 10/02/2020 [facility] White Blood Count 7.8 10 Normal [...] 36.0-66.0 Lymph % 27.9 % Normal 24.0-44.0 Owen % 6.4 % Normal 2.0-8.0 Eos % 5.6 % High 0.0-3.0 Baso % 0.4 % Normal 0.0-1.0 Immature Granulocyte % 0.3 % Normal 0-3.0 Nucleated Red Blood Cell % 0.0 % Normal 0-0 Neutrophils # 4.6 10 Normal 1.5-8.5 Lymph # 2.2 10 Normal 1.5-5.0 Owen # 0.5 10 Normal 0.0-0.8 Eos # 0.4 10 Normal 0.0-0.5 Baso # 0.0 10 Normal 0.0-0.2 CBC W/Automated Diff 06/19/2020 [facility] White Blood Count 7.1 10 Normal [...] 36.0-66.0 Lymph % 28.2 % Normal 24.0-44.0 Owen % 5.5 % Normal 2.0-8.0 Eos % 8.1 % High 0.0-3.0 Baso % 1.0 % Normal 0.0-1.0 Immature Granulocyte % 0.3 % Normal 0-3.0 Nucleated Red Blood Cell % 0.0 % Normal 0-0 Neutrophils # 4.0 10 Normal 1.5-8.5 Lymph # 2.0 10 Normal 1.5-5.0 Owen # 0.4 10 Normal 0.0-0.8 Eos # 0.6 10 High 0.0-0.5 Baso # 0.1 10 Normal 0.0-0.2 Laboratory test finding 06/19/2020 [facility] Erythrocyte Sedimentation Rate 41 mm/hr High 0-20 C Reactive Protein Quantitativ 1.13 mg/dL High 0.00-0.30 33 Rheumatoid Factor Quant < 10.0 IU/mL Normal <15.0 34 Comprehensive Metabolic Profil 06/19/2020 [facility] Glucose, Fasting 83 mg/dL Normal 70-100 [...] Ratio 1.0 Low 1.2-2.2 Antinuclear Antibodies 06/19/2020 [facility] Antinuclear Antibodies Direct Positive Abnormal Negative Anti Double Strand-Dna AB 32 IU/mL High 0-9 36 TYPESETTER PERFORATOR OPERATOR Antibodies <0.2 AI Normal 0.0-0.9 Camargo Antibodies [...] Little GFR Left ESRD GFR <15 on POOL ATTENDANT 3 DIAGNOSIS CRITERIA MMB ng/ml Relative Index (RI) NON-AMI < or = 5 N/A RAYA ZONE > 5 < or = 4 AMI > 5 > 4 4 Troponin I Reference Interva l for Siemens [place] LOCI: 99th Percentile= 0.00-0.045 ng/ml Risk Stratification: [...] Positive >2.5 10 Specimen Comment: Test(s) 52 [id number] TYPESETTER PERFORATOR OPERATOR Ab (RDL) Specimen Comment: was developed and [...] Antibody (JANEY) Patterns (ICAP). Performed at: - [facility] [id number] Visual Merchandising Assistant: Pretty Swain MD, Phone: [phone] Performed at: - [facility] [id number] Visual Merchandising Assistant: Prabhakar Hudson MD, Phone: [phone] Performed at: [facility] [address] [place] [id number] Visual Merchandising Assistant: Bora uW MD, Phone: [phone] Specimen Comment: Test(s) 52 [id number] TYPESETTER PERFORATOR OPERATOR Ab (RDL) Specimen Comment: was developed and [...] Positive: >80 16 Specimen Comment: Test(s) 52 [id number] TYPESETTER PERFORATOR OPERATOR Ab (RDL) Specimen Comment: was developed and [...] 22 note:<nlbl:demographic_chang ed> 23 note:<nlbl:demographic_chang ed> 24 note:<nlbl:demographic_[facility] ed> 25 note:<nlbl:demographic_chang ed> 26 VITAMIN B12 NORMAL RANGE NORMAL 247 - 911 PG/ML INDETERMINATE 211 - 246 PG/ML DEFICIENT LESS THAN 211 PG/ML 27 note:<nlbl:demographic_[facility] ed> 28 note:<nlbl:demographic_[facility] ed> 29 . Results do not indicate the presence of a Lupus Anticoagulant: abnormal high screening results (PTT-LA, dRVVT, mixing studies), may be due to medication (heparin, warfarin, aspirin), Factor inhibitors, anticardiolipin antibodies, or poor specimen integrity. Performed at: [address] [id number] Visual Merchandising Assistant: Prabhakar Hudson MD, Phone: [phone] 30 NORMALIZED RATIO IS EQUAL TO OR GREATER THAN 1.20 LA IS PRESENT. SPECIMEN WILL BE SENT TO [facility] [place], [address] [place]. [address] REFERE [facility] FOR CONFIRMATION. 31 RESULT IS 1.2 [...] out of range values. Performed at: - [facility] [id number] Visual Merchandising Assistant: Pretty Swain MD, Phone: [phone] 33 note:<nlbl:demographic_chang ed> 34 note:<nlbl:demographic_chang ed> 35 Units are mL/min/1.73 m2 Chronic Kidney Disease Staging per NKF: Stage I & II GFR >=60 Normal to Mildly Decreased Stage III GFR 30-59 Moderately Decreased Stage IV GFR 15-29 Severely Decreased Stage V GFR <15 Very Little GFR Left ESRD GFR <15 on POOL ATTENDANT 36 Negative <5 Equivocal 5 - 9 [...] (anti-Camargo) SLE 15 - 30% ------- --------- TYPESETTER PERFORATOR OPERATOR Mixed Connective Tissue Disease 95% (U1 nRNP, SLE 30 - 50% anti-ribonucleoprotein) Polymyositis and/or Dermatomyositis 20% -------- --------- Scl-70 (antiDNA Scleroderma (diffuse) 20 - 35% topoisomerase) Crest 13% -------- --------- Edel-1 Polymyositis and/or Dermatomyositis 20 - 40% -------- --------- Centromere B Scleroderma - Crest variant 80% Performed at: RN - [facility] [address] [id number] Visual Merchandising Assistant: Pretty Swain MD, Phone: [phone] Procedures Date Code Description Status 06/29/2020 67519 Office/Outpatient Established Lo w MDM 20-29 Min [...] 9:00 am - Trav Camargo MD at [facility] * 01/01/2021 3:00 pm - Trav Camargo MD at [facility] Functional Status Functional Condition Comment Date Status Hearing Aid in both ears Active Mental Status Description No Information Available Referrals Refer to Reason for Referral Status Appt Date [facility] Rheumatology 39 y/o F with hx of elevated JANEY, pls eval and treat. 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 Could be psychiatric related. Rule out cardiac etiology. Closed 10/12/[address] [facility] [address] [place] [address] [phone]
--- OUTSIDE RECORDS SUMMARY | 2020-12-24 15:26 | CCD | Continuity of Care Document ---
Author Author Leanna CAMARGO M.D. Organization Unknown Address [address] [place] [address] Phone [phone] Care Team Providers Care Deckhand Name Role Phone Trav Camargo M.D. AUTM [phone] [facility] Orthopedics AUTM [phone] [place] AUTM [phone] Debra Canales DRAWING HAND AUTM [phone] [facility] Rheumatology AUTM [phone] Tim Guthrie AUTM Unavailable [facility] Rheumatology AUTM [phone] [facility] Physical Therapy AUTM [phone] Kyaw Contreras MD AUTM [phone] [facility] Audiology & Physical Therapy AUTM [phone] [facility] Cardiology- [place] Office AUTM Problems Active Problems Provider Date Cluster B personality disorder Mercedes Martinez NP Onset: Mild mental handicap Mercedes Martinez NP Onset: 07/31/2016 Stimulant dependence Mercedes Martienz NP Onset: 07/31/2016 Vitamin D deficiency Trav Camargo MD Onset: 04/17/2017 Cannabis abuse, uncomplicated Kendell Sterling, BUTTON MACHINE OPERATOR Onset: Alcohol abuse, uncomplicated Kendell Sterling, BUTTON MACHINE OPERATOR Onset: Social History Type Date [...] 40 Retana Unable to assess criticality 07/18/2016 [place] Dye Unable to assess criticality 07/18/2016 Gabapentin [...] CPT Code Status Date Vaccine Lot # [id number] Given 12/03/2016 Influenza (>35 months) P.F. Vaccine [...] Date Facility Test Result H/L Range Note Respiratory Panel 12/18/2020 [facility] Respiratory Panel This respiratory <SEE NOTE> 1 CBC With Differential 12/18/2020 [facility] White Blood Count 8.9 10 Normal 4.0-10.0 Red Blood Count 5.26 10 Normal 4.00-5.40 Hemoglobin 15.3 g/dL Normal 12.0-15.5 Hematocrit 45.8 % Normal 36.0-47.0 Mean Corpuscular Volume 87.1 fl Normal 80.0-96.0 Mean Corpuscular Hemoglobin 29.1 pg Normal 27.0-33.0 Mean Corpuscular HGB Conc 33.4 g/dL Normal 32.0-36.5 Red Cell Distribution Width 14.1 % Normal 11.5-14.5 Platelet Count, Automated TNP 10 Normal 150-450 2 Neutrophils % 75.9 % High 36.0-66.0 Lymph % 16.4 % Low 24.0-44.0 [place] % 3.5 % Normal 2.0-8.0 Eos % 3.4 % High 0.0-3.0 Baso % 0.6 % Normal 0.0-1.0 Immature Granulocyte % 0.2 % Normal 0-3.0 Nucleated Red Blood Cell % 0.0 % Normal 0-0 Neutrophils # 6.7 10 Normal 1.5-8.5 Lymph # 1.5 10 Normal 1.5-5.0 [place] # 0.3 10 Normal 0.0-0.8 Eos # 0.3 10 Normal 0.0-0.5 Baso # 0.1 10 Normal 0.0-0.2 Istat Chem8+ Panel 12/18/2020 [facility] iSTAT HCT 47.0 % Normal 38.0-51.0 iSTAT Glucose 111 mg/dL High 70-105 iSTAT Sodium 139 mEq/L Normal 136-145 iSTAT Potassium 4.1 mEq/L Normal 3.5-5.1 iSTAT CA++ 4.5 mg/dL Normal 4.5-5.3 iSTAT Chloride 103 mEq/L Normal 98-109 iSTAT Co2 26.0 MM/L Normal 23.0-27.0 iSTAT BUN 10 mg/dL Normal 8-26 iSTAT Creatinine 0.8 mg/dL Normal 0.6-1.3 CBC With Differential 12/04/2020 [facility] White Blood Count 9.7 10 Normal [...] 36.0-66.0 Lymph % 11.0 % Low 24.0-44.0 [place] % 4.8 % Normal 2.0-8.0 Eos % 1.2 % Normal 0.0-3.0 Baso % 0.7 % Normal 0.0-1.0 Immature Granulocyte % 0.4 % Normal 0-3.0 Nucleated Red Blood Cell % 0.0 % Normal 0-0 Neutrophils # 7.9 10 Normal 1.5-8.5 Lymph # 1.1 10 Low 1.5-5.0 [place] # 0.5 10 Normal 0.0-0.8 Eos # 0.1 10 Normal 0.0-0.5 Baso # 0.1 10 Normal 0.0-0.2 Comprehensive Metabolic Profil 12/04/2020 [facility] Glucose, Fasting 104 mg/dL High 70-100 Blood Urea Nitrogen 10 mg/dL Normal 7-18 Creatinine For GFR 0.91 mg/dL Normal 0.55-1.30 Glomerular Filtration Rate > 60.0 Normal >58 3 Sodium Level 142 mEq/L Normal 136-145 Potassium [...] 0.9 Low 1.2-2.2 Cardiac Marker Panel 12/04/2020 [facility] CPK Creatine Phosphokinase 72 U/L Normal 26-192 CK-MB Value Mass 1.5 NG/ML Normal <3.6 MB/CK Relative Index 2.08 Normal < Or =4 4 Troponin I < 0.02 NG/ML Normal < 0.10 5 Respiratory Panel 12/04/2020 [facility] Respiratory Panel This respiratory <SEE NOTE> 6 Anti-Cardiolipin Antibodies 10/21/2020 [facility] Cardiolipin Iga Antibody <9 APLU/mL Normal 0-11 7 Cardiolipin Igg Antibody 10 GPLU/mL Normal 0-14 8 Cardiolipin Igm Antibody 9 MPLU/mL Normal 0-12 9 Laboratory test finding 10/21/2020 [facility] Anti Centromere Antibody <0.2 AI Normal 0.0-0.9 10 Anti-U1 ASP NET C DEVELOPER AB <20 units Normal <20 11 Anti Camargo(Sm) AB <20 units Normal <20 12 Anti-Sjogrens A&B Antibodies 10/21/2020 [facility] C Ssa Sjogrens A <0.2 AI Normal 0.0-0.9 SSB Sjogrens B <0.2 AI Normal 0.0-0.9 Laboratory test finding 10/21/2020 [facility] Anti-Histone Antibodies 3.1 units High 0.0-0.9 13 Anti DS-Dna AB By Crithidia Negative Normal Negative 14 Janey Titer & Pattern Negative Normal . 15 Anti Scleroderma Antibodies <0.2 AI Normal 0.0-0.9 16 Beta-2 Glycoprotein 1 Loni Letha 10/21/2020 [facility] Beta-2 Glycoprotein I Loni Igg <9 Normal 0-20 17 Beta-2 Glycoprotein I Loni Iga <9 Normal 0-25 18 Beta-2 Glycoprotein I Loni Igm 10 Normal 0-32 19 Laboratory test finding 10/02/2020 [facility] Phosphorus Level 3.6 mg/dL Normal 2.5-4.9 20 CPK Creatine Phosphokinase 43 U/L Normal 26-192 2 1 Magnesium Level 2.1 mg/dL Normal 1.8-2.4 22 Iron (Fe) 50 g/dL Normal 50-170 23 Complement C3 148 mg/dL Normal 90-180 24 Complement C4 23 mg/dL Normal 10-40 25 Thyroid Stimulating Hormone 0.828 uIU/ML Normal 0.358-3.740 26 Vitamin B12 Level 710 pg/mL Normal 247-911 27 Total 25(Oh) Vitamin D 24.7 NG/ML Low 30.0-100.0 28 C Reactive Protein Quantitativ 1.67 mg/dL High 0.00-0.30 29 CBC With Differential 10/02/2020 [facility] White Blood Count 7.8 10 Normal [...] 36.0-66.0 Lymph % 27.9 % Normal 24.0-44.0 [place] % 6.4 % Normal 2.0-8.0 Eos % 5.6 % High 0.0-3.0 Baso % 0.4 % Normal 0.0-1.0 Immature Granulocyte % 0.3 % Normal 0-3.0 Nucleated Red Blood Cell % 0.0 % Normal 0-0 Neutrophils # 4.6 10 Normal 1.5-8.5 Lymph # 2.2 10 Normal 1.5-5.0 [place] # 0.5 10 Normal 0.0-0.8 Eos # 0.4 10 Normal 0.0-0.5 Baso # 0.0 10 Normal 0.0-0.2 Laboratory test finding 10/02/2020 [facility] Erythrocyte Sedimentation Rate 45 mm/hr High 0-20 Complement Total (CH50) > 60 U/mL Normal >41 30 Lupus Type Anticoagulant Scree 10/02/2020 [facility] PTT Lupus Type Anticoag Screen 1.4 High 0-1.2 31 Laboratory test finding 10/02/2020 [facility] Lupus Confirm Stago 1.27 High 0.00-1.20 32 Lupus Screen Confirmation 10/02/2020 [facility] Hexagonal Phase Phospholipid 0 sec Normal 0-11 Comment For Hexagonal Confirm1 (SEE NOTE) Normal . 33 1 This respiratory PCR panel d etects Influenza [...] risk infants. ORGANISM 1: RESPIRATORY SYNCYTIAL VIRUS 2 Platelet count invalid due t o platelet clumping. Suggest ordering platelet blue test to confirm clumping is not due to EDTA. 3 Units are mL/min/1.73 m2 Chronic Kidney Disease Staging per NKF: Stage I & II GFR >=60 Normal to Mildly Decreased Stage III GFR 30-59 Moderately Decreased Stage IV GFR 15-29 Severely Decreased Stage V GFR <15 Very Little GFR Left ESRD GFR <15 on GROCERY STORE MANAGER 4 DIAGNOSIS CRITERIA MMB ng/ml Relative Index (RI) NON-AMI < or = 5 N/A RAYA ZONE > 5 < or = 4 AMI > 5 > 4 5 Troponin I Reference Interva l for Siemens [place] LOCI: 99th Percentile= 0.00-0.045 ng/ml Risk Stratification: <= 0.10 ng/ml Decreased Risk for Adverse Clinical Events. 0.10-1.50 ng/ml Increased Risk for Adv erse Clinical Events. Evaluation of additional criterion and/or repeat testing in 2-6 hours is suggested to rule out myocardial damage. >= 1.50 ng/ml Indicative of Myocardial Injury. 6 This respiratory PCR panel d etects Influenza [...] risk infants. ORGANISM 1: RESPIRATORY SYNCYTIAL VIRUS 7 Negative: <12 Indeterminate: 12 - 20 Low-Med Positive: >20 - 80 High Positive: >80 8 Negative: <15 Indeterminate: 15 - 20 Low-Med Positive: >20 - 80 High Positive: >80 9 Negative: <13 Indeterminate: 13 - 20 Low-Med Positive: >20 - 80 High Positive: >80 10 Specimen Comment: Test(s) 52 [id number] ASP NET C DEVELOPER Ab (RDL) Specimen Comment: was developed and its performance characteristics Specimen Comment: determined by [employer]. It has not been cleared or approved Specimen Comment: by the Food and Drug Administration. 11 Negative: <20 Weak Positive: 20 - 39 Moderate Positive: 40 - 80 Strong Positive: >80 12 Negative: <20 Weak Positive: 20 - 39 Moderate Positive: 40 - 80 Strong Positive: >80 13 Negative <1.0 Weak Positive 1.0 - 1.5 Moderate Positive 1.6 - 2.5 Strong Positive >2.5 14 Specimen Comment: Test(s) 52 [id number] ASP NET C DEVELOPER Ab (RDL) Specimen Comment: was developed and its performance characteristics Specimen Comment: determined by [facility]. It has not been cleared or approved Specimen Comment: by the Food and Drug Administration. 15 Negative <1:80 Borderline 1:80 Positive >1:80 ICAP nomenclature: AC-0 For more information about Hep-2 cell patterns use ANApatterns.org, the official website for the International Consensus on Antinuclear Antibody (JANEY) Patterns (ICAP). Performed at: [facility] [id number] Special Projects Manager: Pretty Swain MD, Phone: [phone] Performed at: [facility] [id number] Special Projects Manager: Prabhakar Hudson MD, Phone: [phone] Performed at: [facility] [address] [place] [id number] Special Projects Manager: Bora Wu MD, Phone: [phone] 16 Specimen Comment: Test(s) 52 [id number] ASP NET C DEVELOPER Ab (RDL) Specimen Comment: was developed and its performance characteristics Specimen Comment: determined by [facility]. It has not been cleared or approved Specimen Comment: by the Food and Drug Administration. 17 Result Units: GPI IgG units . The reference interval reflects a 3SD or 99th percentile interval, which is thought to represent a potentially clinically significant result in accordance with the International Consensus Statement on the classification criteria for definitive antiphospholipid syndrome (APS). J Thromb Haem 2006;4:295-306. 18 Result Units: GPI IgA units . The reference interval reflects a 3SD or 99th percentile interval, which is thought to represent a potentially clinically significant result in accordance with the International Consensus Statement on the classification criteria for definitive antiphospholipid syndrome (APS). J Thromb Haem 2006;4:295-306. 19 Result Units: GPI IgM units . The reference interval reflects a 3SD or 99th percentile interval, which is thought to represent a potentially clinically significant result in accordance with the International Consensus Statement on the classification criteria for definitive antiphospholipid syndrome (APS). J Thromb Haem 2006;4:295-306. 20 note:<nlbl:demographic_chang ed> 21 note:<nlbl:demographic_chang ed> 22 note:<nlbl:demographic_chang ed> 23 note:<nlbl:demographic_chang ed> 24 note:<nlbl:demographic_chang ed> 25 note:<nlbl:demographic_chang ed> 26 note:<nlbl:demographic_chang ed> 27 VITAMIN B12 NORMAL RANGE NORMAL 247 - 911 PG/ML INDETERMINATE 211 - 246 PG/ML DEFICIENT LESS THAN 211 PG/ML 28 note:<nlbl:demographic_chang ed> 29 note:<nlbl:demographic_chang ed> 30 Age Male Female 1 - 30 days [...] range values. Performed at: RN - [facility] [address] [id number] Special Projects Manager: Pretty Swain MD, Phone: [phone] 31 RESULT IS 1.2 OR GREATER, FURTHER [...] factor deficiency or a specific inhibitor. 32 NORMALIZED RATIO IS EQUAL TO OR GREATER THAN 1.20 LA IS PRESENT. SPECIMEN WILL BE SENT TO [facility], [address] [place]. [address] REFERE [facility] FOR CONFIRMATION. 33 . Results do not indicate the presence of a Lupus Anticoagulant: abnormal high screening results (PTT-LA, dRVVT, mixing studies), may be due to medication (heparin, warfarin, aspirin), Factor inhibitors, anticardiolipin antibodies, or poor specimen integrity. Performed at: [address] [id number] Special Projects Manager: Prabhakar Hudson MD, Phone: [phone] Procedures Date Code Description Status 06/29/2020 33281 Office/Outpatient Established Lo w MDM 20-29 Min [...] to Reason for Referral Status Appt Date [facility] Rheumatology 39 y/o F with hx of elevated JNAEY, pls eval and treat. 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 Could be psychiatric related. Rule out cardiac etiology. Closed 10/12/[address] [place] [id number] [phone]
--- OUTSIDE RECORDS SUMMARY | 2020-12-24 15:28 | CCD ---
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 Care Distance Learning Coordinator Name Role Phone CAITLIN HERNANDEZ MD Unavailable Unavailable CAITLIN HERNANDEZ [...] Unavailable HERNANDEZ, CAITLIN MD Unavailable Unavailable HERNANDEZ, CAILTIN MD Unavailable Unavailable HERNANDEZ, CAITLIN MD Unavailable [...] Unavailable HERNANDEZ, CAITLIN MD Unavailable Unavailable HERNANDEZ, CATILIN MD Unavailable Unavailable HERNANDEZ, CAITLIN MD Unavailable Unavailable HERNANDEZ, CAITLIN MD Unavailable Unavailable HERNANDEZ, CAITLIN MD Unavailable Unavailable HERNANDEZ, CAITLIN MD Unavailable Unavailable HERNANDEZ, CAITLIN MD Unavailable Unavailable HERNANDEZ, CAITLIN MD Unavailable Unavailable EHRNANDEZ, CAITLIN MD Unavailable Unavailable HERNANDEZ, CAITLIN MD [...] Unavailable HERNANDEZ, CAITLIN MD Unavailable Unavailable HERNANDEZ, CAITILN MD Unavailable Unavailable HERNANDEZ, CAITLIN MD Unavailable [...] Unavailable Unavailable CAITLIN HERNANDEZ MD Unavailable Unavailable EHRNANDEZCAITLIN MEEKS MD Unavailable Unavailable HERNANDEZCAITLIN MEEKS MD [...] Unavailable Unavailable HERNANDEZCAITLIN MEEKS MD Unavailable Unavailable SYSTEM IN, NOT PROVIDER Unavailable Unavailable Miguel Angel, Ericka Unavailable Unavailable [...] Unavailable Unavailable TalbertDean estrada MD Unavailable Unavailable TalbertDena estrada MD Unavailable Unavailable TalbertDean estrada MD [...] Talbert MD Unavailable Unavailable GEOFF, H EZEQUIEL NURSE PRIVATE DUTY Unavailable Unavailable GEOFF, H EZEQUIEL NURSE PRIVATE DUTY Unavailable Unavailable GEOFF, H EZEQUIEL NURSE PRIVATE DUTY Unavailable Unavailable GEOFF, H EZEQUIEL NURSE PRIVATE DUTY Unavailable Unavailable GEOFF, H EZEQUIEL NURSE PRIVATE DUTY Unavailable Unavailable GEOFF, H EZEQUIEL NURSE PRIVATE DUTY Unavailable Unavailable GEOFF, H EZEQUIEL NURSE PRIVATE DUTY Unavailable Unavailable GEOFF, H EZEQUIEL NURSE PRIVATE DUTY Unavailable Unavailable GEOFF, H EZEQUIEL NURSE PRIVATE DUTY Unavailable Unavailable Mirtha Manley MD Unavailable Unavailable Mirtha Manley MD Unavailable Unavailable A[employer] Unavailable Unavailable [employer] Unavailable Unavailable Mirtha [...] Unavailable Unavailable [employer] Unavailable Unavailable Aime Manleylisa MANZO Unavailable Unavailable Slezka, Vojtech MD Unavailable Unavailable [...] is protected by Article 27-F of the [place] State Public Health law. If you continue you may have access to information: Regarding HIV / AIDS; Provided by facilities licensed or operated by the [facility] Office of Mental Health; or Provided by the [facility] Office for People With Developmental Disabilities. If such information is present, then the following [facility] mandated warning applies: This information has been [...] law may result in a fine or fci sentence or both. A general authorization for the release of medical or other information is NOT sufficient authorization for further disc losure. Allergies and Adverse Reactions Type Description Substance Reaction Status Data Source(s ) Propensity to adverse reactions to substance nkda 24 HR Bupropion Hydrochloride 150 MG Extended Release Oral Tablet Active [facility] ([facility]) Propensity to adverse reactions ULTRAM ULTRAM [facility] Propensity to adverse reactions NEURONTIN NEURONTIN [facility] Food allergy SEAFOOD SEAFOOD SWOLLEN THROAT [facility] Drug allergy ATENOLOL ATENOLOL [facility] Drug allergy AMITRIPTYLINE AMITRIPTYLINE ANAPHYLAXIS VOMITING [facility] Drug allergy NORTRIPTYLINE NORTRIPTYLINE [facility] Family History Family Member Name Family Member Gender Family Member Status Date o f Status Description Data Source(s) Unknown Male Problem MEDENT ([facility]) Unknown Male Problem MEDENT ([facility], ) Encounters Encounter Providers Location Date Indications Data Source(s ) Extended Individual Psychotherapy - 45 min Attender: Ericka Mcguireus [facility] 11/17/2020 02:30:00 AM EDT - 11/17/2020 02:30:00 AM EDT [facility] ([facility]) Attender: Ericka Miguel Angel 11/17/2020 12:00:00 AM EDT [facility] ([facility]) [place] [address] [facility] [address] 11/16/2020 12:00:00 AM EDT eCW1 ([facility]) Outpatient [address] [facility] [address] 11/03/2020 12:00:00 AM EDT [facility] [place] [address] [facility] [address] 10/26/2020 12:00:00 AM EDT eCW1 ([facility]) Outpatient Attender: Mirtha Paintererrer: CAITLIN Lenz MD [email or web address] 10/13/2020 09:32:45 AM EDT - 10/13/2020 10:39:59 AM EDT [facility] Outpatient [address] [facility] [address] 10/02/2020 12:00:00 AM EDT eCW1 ([facility]) Unknown [address] [facility] [address] 10/02/2020 12:00:00 AM EDT eCW1 ([facility]) Outpatient [address] [facility] [address] 09/28/2020 12:00:00 AM EDT eCW1 ([facility]) Extended Individual Psychotherapy - 45 min Attender: Ericka Michelle [facility] 09/18/2020 02:00:00 AM EDT - 09/18/2020 02:00:00 AM EDT [facility] ([facility]) Attender: Ericka Michelle 09/18/2020 12:00:00 AM EDT [facility] ([facility]) Attender: Ericka Michelle 08/17/2020 12:00:00 AM EDT [facility] ([facility]) Extended Individual Psychotherapy - 45 min Attender: Ericka Michelle [facility] 08/16/2020 10:00:00 AM EDT - 08/16/2020 10:00:00 AM EDT [facility] ([facility]) Extended Individual Psychotherapy - 45 min Attender: Ericka Michelle [facility] 07/25/2020 10:00:00 AM EDT - 07/25/2020 10:00:00 AM EDT [facility] ([facility]) Attender: Ericka Michelle 07/25/2020 12:00:00 AM EDT [facility] ([facility]) Extended Individual Psychotherapy - 45 min Attender: Ericka Michelle [facility] 07/07/2020 02:45:00 AM EDT - 07/07/2020 02:45:00 AM EDT [facility] ([facility]) Attender: Ericka Michelle 07/07/2020 12:00:00 AM EDT [facility] ([facility]) Outpatient Attender: Dean Talbert MD [facility] 07/06/2020 10:40:00 AM EDT MEDENT ([facility]) Outpatient Attender: CAITLIN HERNANDEZ MDConsultant: CAITLIN Lenz MD 06/29/2020 02:34:00 PM EDT - 06/29/2020 02:34:00 PM EDT [facility] (WC ESTOB) [facility] Est OB [address] [place] [address] 06/28/2020 12:00:00 AM EDT eCW1 ([facility]) Extended Individual Psychotherapy - 45 min Attender: Ericka Michelle [facility] 06/20/2020 03:15:00 AM EDT - 06/20/2020 03:15:00 AM EDT [facility] ([facility]) Attender: Ericka Michelle 06/20/2020 12:00:00 AM EDT [facility] ([facility]) Outpatient Attender: CAITLIN HERNANDEZ MD Family [facility] 06/15/2020 0 3:00:00 PM EDT MEDENT ([facility]) Outpatient Attender: CAITLIN HERNANDEZ MDConsultant: CAITLIN Lenz MD 06/15/2020 02:04:00 PM EDT - 06/15/2020 02:04:00 PM EDT [facility] Outpatient Attender: EZEQUIEL BAIG NP [facility] Eliezer lenz 06/01/2020 02:30:00 AM EDT - 06/01/2020 02:30:00 AM EDT [facility] ([facility]) Attender: EZEQUIEL BAIG NP 06/01/2020 12:00:00 AM EDT [facility] ([facility]) Extended Individual Psychotherapy - 45 min Attender: Ericka Miguel Angel [facility] 05/24/2020 02:00:00 AM EDT - 05/24/2020 02:00:00 AM EDT [facility] ([facility]) Attender: Ericka Michelle 05/24/2020 12:00:00 AM EDT [facility] ([facility]) Extended Individual Psychotherapy - 45 min Attender: Ericka Miguel Angel [facility] 05/09/2020 02:00:00 AM EST - 05/09/2020 02:00:00 AM EST [facility] ([facility]) Attender: Ericka Michelle 05/09/2020 12:00:00 AM EST [facility] ([facility]) Outpatient Attender: EZEQUIEL BAIG NP [facility] Eliezer delfin 04/27/2020 11:00:00 AM EST - 04/27/2020 11:00:00 AM EST [facility] ([facility]) ( ESTOB) enter Est OB [address] [place] [address] 04/27/2020 12:00:00 AM EST eCW1 ([facility]) Attender: EZEQUIEL BAIG NP 04/27/2020 12:00:00 AM EST [facility] ([facility]) Extended Individual Psychotherapy - 45 min Attender: Ericka Miguel Angel [facility] 04/25/2020 10:00:00 AM EST - 04/25/2020 10:00:00 AM EST [facility] ([facility]) Attender: Ericka Michelle 04/25/2020 12:00:00 AM EST [facility] ([facility]) Extended Individual Psychotherapy - 45 min Attender: Ericka Michelle [facility] 04/11/2020 11:00:00 AM EST - 04/11/2020 11:00:00 AM EST [facility] ([facility]) Attender: Ericka Michelle 04/11/2020 12:00:00 AM EST [facility] ([facility]) ( ESTOB) [facility] Est OB [address] [place] [address] 04/04/2020 12:00:00 AM EST eCW1 ([facility]) ( COB) enter Complicated OB [address] [place] [address] 03/31/2020 12:00:00 AM EST eCW1 ([facility]) Extended Individual Psychotherapy - 45 min Attender: Ericka Michelle [facility] 03/24/2020 02:00:00 AM EST - 03/24/2020 02:00:00 AM EST [facility] ([facility]) Attender: Ericka Michelle 03/24/2020 12:00:00 AM EST [facility] ([facility]) ( ESTOB) [facility] Est OB [address] [place] [address] 03/23/2020 12:00:00 AM EST eCW1 ([facility]) Outpatient Attender: EZEQUIEL BAIG NP [facility] delfin 03/21/2020 11:00:00 AM EST - 03/21/2020 11:00:00 AM EST [facility] [place] [address] [facility] [address] 03/21/2020 12:00:00 AM EST eCW1 ([facility]) Attender: EZEQUIEL BAIG NP 03/21/2020 12:00:00 AM EST [facility] ([facility]) Extended Individual Psychotherapy - 45 min Attender: Ericka Michelle [facility] 03/17/2020 11:00:00 AM EST - 03/17/2020 11:00:00 AM EST [facility] ([facility]) Attender: Ericka Michelle 03/17/2020 12:00:00 AM EST [facility] ([facility]) ( ESTOB) [facility] [address] [place] [address] 03/16/2020 12:00:00 AM EST eCW1 ([facility]) Unknown [address] [facility] [address] 03/10/2020 12:00:00 AM EST eCW1 ([facility]) ( ESTOB) [facility] [address] [place] [address] 03/08/2020 12:00:00 AM EST eCW1 ([facility]) Extended Individual Psychotherapy - 45 min Attender: Ericka Michelle [facility] 03/06/2020 01:00:00 AM EST - 03/06/2020 01:00:00 AM EST [facility] ([facility]) Attender: Ericka Michelle 03/06/2020 12:00:00 AM EST [facility] ([facility]) Outpatient Referrer: PROVIDER SYSTEM IN 03/02/2020 1 0:20:00 AM EST shingles with occular involvement [facility] shingles with occular involvement Unknown [address] [facility] [address] 02/28/2020 12:00:00 AM EST eCW1 ([facility]) ( [place]) [facility] Nurse Visit [address] [place] [address] 02/28/2020 12:00:00 AM EST eCW1 ([facility]) ( ESTOB) enter Est OB [address] [place] [address] 02/21/2020 12:00:00 AM EST eCW1 ([facility]) Extended Individual Psychotherapy - 45 min Attender: Ericka Michelle [facility] 02/11/2020 10:00:00 AM EST - 02/11/2020 10:00:00 AM EST [facility] ([facility]) Attender: Ericka Michelle 02/11/2020 12:00:00 AM EST [facility] Outpatient Attender: EZEQUIEL BAIG NP [facility] Eliezer lenz 01/25/2020 10:00:00 AM EST - 01/25/2020 10:00:00 AM EST [facility] ([facility]) Extended Individual Psychotherapy - 45 min Attender: Ericka Mcguireus [facility] 01/25/2020 09:00:00 AM EST - 01/25/2020 09:00:00 AM EST [facility] ([facility]) Attender: EZEQUIEL BAIG NP 01/25/2020 12:00:00 AM EST [facility] ([facility]) Attender: Ericka Michelle 01/25/2020 12:00:00 AM EST [facility] ([facility]) ( ESTOB) [facility] Est OB [address] [place] [address] 01/24/2020 12:00:00 AM EST eCW1 ([facility]) Unknown [address] [facility] [address] 01/21/2020 12:00:00 AM EST eCW1 ([facility]) Extended Individual Psychotherapy - 45 min Attender: Ericka Mcguireus [facility] 01/10/2020 10:00:00 AM EST - 01/10/2020 10:00:00 AM EST [facility] ([facility]) Attender: Ericka Michelle 01/10/2020 12:00:00 AM EST [facility] ([facility]) ( ESTOB) [facility] Est OB [address] [place] [address] 01/07/2020 12:00:00 AM EST eCW1 ([facility]) Outpatient Attender: EZEQUIEL BAIG NP [facility] Eliezer lenz 12/30/2019 10:30:00 AM EDT - 12/30/2019 10:30:00 AM EDT [facility] ([facility]) Attender: EZEQUIEL BAIG NP 12/30/2019 12:00:00 AM EDT [facility] Brief Individual Psychotherapy - 30 min Attender: Ericka smith [facility] 12/16/2019 11:00:00 AM EDT - 12/16/2019 11:00:00 AM EDT [facility] ([facility]) Attender: Ericka Mcguireus 12/16/2019 12:00:00 AM EDT [facility] ( [facility] Est OB [address] [place] [address] 12/08/2019 12:00:00 AM EDT eCW1 ([facility]) Outpatient Attender: EZEQUIEL BAIG NP [facility] Eliezer lenz 12/02/2019 11:15:00 AM EDT - 12/02/2019 11:15:00 AM EDT [facility] ([facility]) Attender: EZEQUIEL BAIG NP 12/02/2019 12:00:00 AM EDT [facility] ([facility]) Extended Individual Psychotherapy - 45 min Attender: Ericka Michelle [facility] 11/30/2019 11:00:00 AM EDT - 11/30/2019 11:00:00 AM EDT [facility] ([facility]) Attender: Ericka Miguel Angel 11/30/2019 12:00:00 AM EDT [facility] ([facility]) Outpatient Attender: Mirtha Manley MDReferrer: CAITLIN Lenz MD [email or web address] 11/11/2019 12:00:00 AM EDT [facility] Extended Individual Psychotherapy - 45 min [facility] 11:00:00 AM EDT - 11/09/2019 11:00:00 AM EDT [facility] ([facility]) Attender: Ericka Michelle 11/09/2019 12:00:00 AM EDT [facility] ([facility]) Outpatient Attender: EZEQUIEL BAIG NP [facility] Eliezer lenz 11/04/2019 09:30:00 AM EDT - 11/04/2019 09:30:00 AM EDT [facility] ([facility]) Attender: EZEQUIEL BAIG NP 11/04/2019 12:00:00 AM EDT [facility] ([facility]) Functional Status Immunizations Vaccine Date Status Description Data Source(s) COVID-19 VACCINE Mayra 07/24/2020 12:00:00 AM EDT completed [place] Vaccine Series Complete: YESThis Data wa s Submitted to [facility] Via [employer] Tracking. Medications Medication Brand Name Start Date Product Form Dose Route Admi nistrative Instructions Pharmacy Instructions Status Indications Reaction Description Data Source(s) Aimovig 140 MG/ML SOAJ [id number] 09/16/2020 12:00:00 AM EDT active INJECT 140MG UNDER THE SKIN ONCE A MONTH [facility] pregabalin 75 MG Oral Capsule pregabalin (LYRICA) 75 M G capsule pregabalin (LYRICA) 75 MG capsule 08/18/2020 12:00:00 AM EDT active TAKE ONE CAPSULE BY MOUTH TWO TIMES A DAY MAXIMUM DAILY DOSE 2 CAPS [facility] Escitalopram 10 MG Oral Tablet [Lexapro] Lexapro 07/06/2020 12 :00:00 AM EDT 10 mg by mouth completed <td ID="Me dicationRxNorm_1">475056</td><td ID="MedicationMedication_1">Lexapro</td><td ID="MedicationRoute_1">by mouth</td><td ID="MedicationRouteConcept_1">E38412</td><td ID="MedicationStartDate_1">07/06/2020</td><td ID="MedicationStopDate_1">09/04/2020</td><td ID="MedicationDosageFrequency_1">once a day</td><td ID="MedicationDuration_1">30</td><td ID="MedicationFormulaStrength_1">10 mg</td><td ID="MedicationDosageForm_1">tablet</td><td ID="MedicationDosageFormCode_1"></td><td ID="MedicationDosageDescription_1"></td><td ID="MedicationMedicationId_1">[id number]</td><td ID="MedicationAccount_1">[id number]</td><td ID="MedicationNpid_1">[id number]</td><td ID="MedicationAuthorFirstName_1">Ezequiel</td><td ID="MedicationAuthorLastName_1">Geoff</td><td ID="MedicationTaxonomyCode_1">[id number]</td><td ID="MedicationTaxonomyDesc_1">Nurse Practitioner</td><td ID="MedicationPhoneNumber_1">[phone]</td> [facility] ([facility]) Aimovig Aimovig 07/06/2020 12:00:00 AM EDT SUBCUTANEOUS active MEDENT ([facility]) Ketorolac (Toradol) Inj 30MG/ML 06/15/2020 12:00:00 AM EDT completed MEDENT ([facility]) Medication administered onsite Escitalopram 5 MG Oral Tablet [Lexapro] Lexapro 05/04/2020 12: 00:00 AM EST 5 mg by mouth completed <td ID="Me dicationRxNorm_2">[id number]</td><td ID="MedicationMedication_2">Lexapro</td><td ID="MedicationRoute_2">by mouth</td><td ID="MedicationRouteConcept_2">F72308</td><td ID="MedicationStartDate_2">05/04/2020</td><td ID="MedicationStopDate_2">06/03/2020</td><td ID="MedicationDosageFrequency_2">once a day</td><td ID="MedicationDuration_2">30</td><td ID="MedicationFormulaStrength_2">5 mg</td><td ID="MedicationDosageForm_2">tablet</td><td ID="MedicationDosageFormCode_2"></td><td ID="MedicationDosageDescription_2"></td><td ID="MedicationMedicationId_2">[id number]</td><td ID="MedicationAccount_2">[id number]</td><td ID="MedicationNpid_2">[id number]</td><td ID="MedicationAuthorFirstName_2">Ezequiel</td><td ID="MedicationAuthorLastName_2">Geoff</td><td ID="MedicationTaxonomyCode_2">[id number]</td><td ID="MedicationTaxonomyDesc_2">Nurse Practitioner</td><td ID="MedicationPhoneNumber_2">[phone]</td> [facility] valacyclovir 500 MG Oral Tablet [Valtrex] Valtrex 500 MG Marisabel trex 500 MG 04/27/2020 12:00:00 AM EST 1.0 {tablet} suspended Valtrex 500 MG eCW1 ([facility]) valacyclovir 500 MG Oral Tablet [Valtrex] Valtrex 500 MG Marisabel trex 500 MG 04/27/2020 12:00:00 AM EST 1.0 {tablet} active Valtrex 500 MG eCW1 ([facility]) valacyclovir 500 MG Oral Tablet [Valtrex] Valtrex 500 MG Marisabel trex 500 MG 04/27/2020 12:00:00 AM EST 1.0 {tablet} suspended Valtrex 500 MG eCW1 ([facility]) valacyclovir 500 MG Oral Tablet [Valtrex] Valtrex 500 MG Marisabel trex 500 MG 04/27/2020 12:00:00 AM EST 1.0 {tablet} active Valtrex 500 MG eCW1 ([facility]) valacyclovir 500 MG Oral Tablet [Valtrex] Valtrex 500 MG Marisabel trex 500 MG 04/27/2020 12:00:00 AM EST 1.0 {tablet} suspended Valtrex 500 MG eCW1 ([facility]) valacyclovir 500 MG Oral Tablet [Valtrex] Valtrex 500 MG Marisabel trex 500 MG 04/27/2020 12:00:00 AM EST 1.0 {tablet} suspended Valtrex 500 MG eCW1 ([facility]) valacyclovir 500 MG Oral Tablet [Valtrex] Valtrex 500 MG Marisabel trex 500 MG 04/27/2020 12:00:00 AM EST 1.0 {tablet} suspended Valtrex 500 MG eCW1 ([facility]) valacyclovir 500 MG Oral Tablet [Valtrex] Valtrex 500 MG Marisabel trex 500 MG 04/27/2020 12:00:00 AM EST 1.0 {tablet} suspended Valtrex 500 MG eCW1 ([facility]) valacyclovir 500 MG Oral Tablet [Valtrex] Valtrex 500 MG Marisabel trex 500 MG 04/27/2020 12:00:00 AM EST 1.0 {tablet} suspended Valtrex 500 MG eCW1 ([facility]) Sumatriptan 100 MG Oral Tablet Sumatriptan Succinate 1 00 MG Sumatriptan Succinate 100 MG 04/04/2020 12:00:00 AM EST a ctive Sumatriptan Succinate 100 MG eCW1 ([facility]) Metronidazole 500 MG Oral Tablet Metronidazole 500 MG 2020 12:00:00 AM EST 1.0 {tablet} active Metronidazo le 500 MG eCW1 ([facility]) Metronidazole 500 MG Oral Tablet Metronidazole 500 MG 2020 12:00:00 AM EST 1.0 {tablet} suspended Metronid azole 500 MG eCW1 ([facility]) Metronidazole 500 MG Oral Tablet Metronidazole 500 MG 2020 12:00:00 AM EST 1.0 {tablet} active Metronidazo le 500 MG eCW1 ([facility]) Metronidazole 500 MG Oral Tablet Metronidazole 500 MG 2020 12:00:00 AM EST 1.0 {tablet} active Metronidazo le 500 MG eCW1 ([facility]) Metronidazole 500 MG Oral Tablet Metronidazole 500 MG 2020 12:00:00 AM EST 1.0 {tablet} suspended Metronid azole 500 MG eCW1 ([facility]) Acetaminophen 325 MG / butalbital 50 MG / Caffeine 40 MG Oral Capsule [Esgic] Esgic 50-325-40 MG Esgic 50-325-40 MG 02/28/2020 12:00:00 AM EST active Esgic 50-325-40 MG eCW1 ([facility]) Acetaminophen 325 MG / butalbital 50 MG / Caffeine 40 MG Oral Capsule [Esgic] Esgic 50-325-40 MG Esgic 50-325-40 MG 02/28/2020 12:00:00 AM EST active Esgic 50-325-40 MG eCW1 ([facility]) Acetaminophen 325 MG / butalbital 50 MG / Caffeine 40 MG Oral Capsule [Esgic] Esgic 50-325-40 MG Esgic 50-325-40 MG 02/28/2020 12:00:00 AM EST active Esgic 50-325-40 MG eCW1 ([facility]) Acetaminophen 325 MG / butalbital 50 MG / Caffeine 40 MG Oral Capsule [Esgic] Esgic 50-325-40 MG Esgic 50-325-40 MG 02/28/2020 12:00:00 AM EST active Esgic 50-325-40 MG eCW1 ([facility]) Acetaminophen 325 MG / butalbital 50 MG / Caffeine 40 MG Oral Capsule [Esgic] Esgic 50-325-40 MG Esgic 50-325-40 MG 02/28/2020 12:00:00 AM EST active Esgic 50-325-40 MG eCW1 ([facility]) Acetaminophen 325 MG / butalbital 50 MG / Caffeine 40 MG Oral Capsule [Esgic] Esgic 50-325-40 MG Esgic 50-325-40 MG 02/28/2020 12:00:00 AM EST active Esgic 50-325-40 MG eCW1 ([facility]) Acetaminophen 325 MG / butalbital 50 MG / Caffeine 40 MG Oral Capsule [Esgic] Esgic 50-325-40 MG Esgic 50-325-40 MG 02/28/2020 12:00:00 AM EST active Esgic 50-325-40 MG eCW1 ([facility]) Amoxicillin 875 MG Oral Tablet amoxicillin (AMOXIL) 87 5 MG tablet amoxicillin (AMOXIL) 875 MG tablet 11/06/2019 12:00:00 AM EDT aborted TAKE ONE TABLET BY MOUTH EVERY TWELVE HOURS FOR 10 DAYS [facility] Aspirin 81 MG Delayed Release Oral Tablet aspirin EC 8 1 MG EC tablet aspirin EC 81 MG EC tablet 81 mg Oral aborted Take 81 mg by mouth daily [facility] Vit-Fe Fumarate-FA ( 1+1 PO) drug or medication Oral aborted Take by mouth [facility] Insurance Providers Payer name Policy type / Coverage type Policy ID Covered democrat ID Covered democrat's relationship to banda Policy Banda Plan Information [facility] Comm Plan Medicaid F [id number] SELF [id number] Managed Care - Community Plan [facility] P [id number] S [id number] Medicaid S [id number] S [id number] [facility] COMMUNITY PLAN [facility] [id number] SP [id number] Managed Care - Community Plan [facility] P [id number] S [id number] Medicaid S [id number] S [id number] [facility] I [id number] Self [id number] [facility] I [id number] Self [id number] [facility] I [id number] Self [id number] MEDICAID M [id number] Self [id number] [facility] COMM[facility] [id number] SP [id number] [facility] [id number] SP [id number] Medicaid S [id number] S [id number] [facility] COMM[facility]ITY [facility] [id number] SP [id number] Managed Care - Community Plan [facility] P [id number] S [id number] [facility] [facility] [id number] SP [id number] [facility] [id number] SP [id number] [facility] [id number] SP [id number] [facility] [id number] SP [id number] [facility] Health Maintenance Organization (HMO) [id number] Self [id number] [facility] COMMUNITY PLAN MCDHMO [id number] SP [id number] Managed Care - [facility] Community Plan P [id number] S [id number] [facility] COMMUNITY PLAN MCDHMO [id number] SP [id number] [facility] COMMUNITY PLAN MCDHMO [id number] SP [id number] Medicaid S [id number] S [id number] Managed Care - [facility] Community Plan P [id number] S [id number] [facility] MED[facility] [id number] Managed Care - U[facility] Community Plan P [id number] S [id number] [facility] MEDICAID [id number] Paula [id number] [facility] COMMUNITY PLAN XIX [id number] 18 [id number] [facility] Communty Plan Medicaid [id number] Self [id number] [facility] Community Plan Commercial [id number] Self [id number] [facility] Medigap Part B [id number] Self [id number] [facility] [id number] 18 [id number] [facility] [place] Plan Medigap Part B [id number] Self [id number] [facility] Community Plan Commercial [id number] Self [id number] [facility] PLAN [id number] 18 [id number] [facility] [id number] 18 [id number] [facility] O [id number] S [id number] [facility] Part B [id number] Self [id number] [facility] Commercial [id number] Self [id number] [facility] [place] [id number] 18 [id number] [facility] COMMUNITY PLAN [facility] [id number] SP [id number] [facility] Medigap Part B [id number] Self [id number] [facility] Commercial [id number] Self [id number] [facility]) O [id number] S [id number] [facility] AMERICHOICE XIX -HMO [id number] [id number] [facility] [id number] S [id number] MEDICAID - CLINIC [id number] [facility] AMERICHOICE HMO [id number] 18 [id number] MEDICAID-O/P [id number] X [facility] [id number] Self [facility] P UNAVAILABLE S UNAVAILA BLE Medicaid S [id number] S [id number] [facility] [place] PLAN [id number] SP [id number] [facility] COMMUNITY PLAN [facility] [id number] SP [id number] O BLUE [id number] SP [id number] [place] [id number] SP [id number] [facility] COMMUNTY PLAN [id number] 18 [id number] [facility] COMMUNITY PLAN XIX [id number] 18 [id number] [facility]) O [id number] S [id number] [facility] COMMUNITY PLAN [id number] 18 [id number] UN[facility] AMERICHOICE XIX -HMO [id number] 18 [id number] [facility] AMERICHOICE XIX -HMO [id number] 18 [id number] UN[facility] AMERICHOICE XIX -HMO [id number] 18 [id number] [facility] COMMUNITY PLAN XIX [id number] 18 [id number] [facility] COMMUNTY PLAN [id number] 18 [id number] [facility](MCA[facility]) O [id number] S [id number] [facility] Community Plan Commercial [id number] Self [id number] [facility] Communty Plan Medicaid [id number] Self [id number] [facility] Community Plan Commercial [id number] Self [id number] [facility] Communty Plan Medicaid [id number] Self [id number] [facility] Community Plan Commercial [id number] Self [id number] [facility] Communty Plan Medicaid [id number] 0.7897.0 Self [id number] [facility] Community Plan Commercial [id number] Self [id number] [facility] Communty Plan Medicaid [id number] Self [id number] [facility] Communty Plan Medicaid [id number] 0.7897.0 Self [id number] [facility] Community Plan Commercial [id number] Self [id number] [facility] Communty Plan Medicaid [id number] 0.7897.0 Self [id number] [facility] Community Plan Commercial [id number] Self [id number] [facility] [id number] S 1 [id number] UNAVAILABLE UNAVAILA BLE [facility] [id number] S 1 [id number] [facility] Community Plan Commercial [id number] Self [id number] [facility] Communty Plan Medicaid [id number] Self [id number] Problems, Conditions, and Diagnoses Code Display Name Description Problem Type Effective Dates Data Source(s) R55 Syncope and collapse Syncope and collapse Diagnosis 10/13/2020 09:32:45 AM EDT [facility] E66.01 Morbid (severe) obesity due to excess ca lories Morbid (severe) obesity due to excess ca Diagnosis 10/13/2020 09:32:45 AM EDT [facility] R07.89 Other chest pain Other chest pain Diagnosis 10/13/2020 09 :32:45 AM EDT [facility] Z1331 Encounter for screening for depression E ncounter for screening for depression Diagnosis 06/15/2020 02:04:00 PM EDT [facility] M545 Low back pain Low back pain Diagnosis 06/15/2020 02:04:00 PM EDT [facility] M7071 Other bursitis of hip, right hip Other bursitis of hip, right hip Diagnosis 06/15/2020 02:04:00 PM EDT [facility] shingles with occular involvement shingles with occula r involvement Diagnosis 03/02/2020 10:20:00 AM [facility] R07.9 Chest pain, unspecified Chest pain, unspecified Diagno sis 11/11/2019 10:34:12 AM EDT [facility] F14.20 Cocaine dependence, uncomplicated Stimul ant Use Disorder. 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 Problem 11/03/2020 12:00:00 AM EDT eCW1 ([facility]) R55 Syncope Syncope [id number] 10/13/2020 12:00:00 AM ED T [facility] Z68.41 Body mass index 40+ - severely obese Bod y mass index (BMI) 40.0-44.9, adult Problem 03/31/2020 12:00:00 AM EST eCW1 ([facility]) O99.213 Obesity complicating , third tr imester Obesity complicating in third trimester Problem 03/23/2020 12:00:00 AM EST eCW1 ([facility]) O99.212 [id number] Obesity complicating in second trimester Problem 12/07/2019 12:00:00 AM EDT eCW1 ([facility]) Z34.80 care Supervision of other normal P roblem 12/07/2019 12:00:00 AM EDT eCW1 ([facility]) R07.89 Other chest pain Other chest pain [id number] 11/11/2019 12 :00:00 AM EDT [facility] Surgeries/Procedures Procedure Description Date Indications Data Source(s) Extended Individual Psychotherapy - 45 min 11/17/2020 12:00:00 AM EDT - 11/17/2020 12:00:00 AM EDT [facility] ([facility]) Extended Individual Psychotherapy - 45 min 12:00:00 AM EDT [facility] ([facility]) ECG ROUTINE ECG W/LEAST 12 LDS W/I&R <td>POCT AMB EKG</td><td>Routine</td><td>10/13/2020 10:22 AM EDT</td><td> Other chest pain Syncope, unspecified syncope type</td><td> </td> 10/13/2020 10:22:00 AM EDT Syncope, unspecified syncope typeOther chest pain [facility] Syncope, unspecified syncope type Other chest pain Extended Individual Psychotherapy - 45 min 09/18/2020 12:00:00 AM EDT - 09/18/2020 12:00:00 AM EDT [facility] ([facility]) Extended Individual Psychotherapy - 45 min 12:00:00 AM EDT [facility] ([facility]) Extended Individual Psychotherapy - 45 min 08/17/2020 12:00:00 AM EDT - 08/17/2020 12:00:00 AM EDT [facility] ([facility]) Extended Individual Psychotherapy - 45 min 12:00:00 AM EDT [facility] ([facility]) Extended Individual Psychotherapy - 45 min 07/25/2020 12:00:00 AM EDT - 07/25/2020 12:00:00 AM EDT [facility] ([facility]) Extended Individual Psychotherapy - 45 min 12:00:00 AM EDT [facility] ([facility]) Extended Individual Psychotherapy - 45 min 07/07/2020 12:00:00 AM EDT - 07/07/2020 12:00:00 AM EDT [facility] ([facility]) Extended Individual Psychotherapy - 45 min 12:00:00 AM EDT [facility] ([facility]) OFFICE OUTPATIENT VISIT 15 MINUTES 06/29/2020 12:00:00 AM EDT [facility] ([facility]) Extended Individual Psychotherapy - 45 min 06/20/2020 12:00:00 AM EDT - 06/20/2020 12:00:00 AM EDT [facility] ([facility]) Extended Individual Psychotherapy - 45 min 12:00:00 AM EDT [facility] ([facility]) BLOOD COUNT COMPLETE AUTO&AUTO DIFRNTL WBC COUNT <td>C BC AND DIFFERENTIAL</td><td>Routine</td><td>06/19/2020</td><td></td><td> </td> 06/19/2020 12:00:00 AM EDT [facility] BASIC METABOLIC PANEL CALCIUM TOTAL <td>BASIC METABOLI C PANEL</td><td>Routine</td><td>06/19/2020</td><td></td><td> </td> 06/19/2020 12:00:00 AM EDT [facility] Brief Emotional/Behav Assessment W/ Scoring Doc Per Standard Inst 06/15/2020 12:00:00 AM EDT [facility] ([facility]) OFFICE OUTPATIENT VISIT 15 MINUTES 06/15/2020 12:00:00 AM EDT [facility] ([facility]) MHC Telemed E/M Lvl 3--Est pt 06/01/2020 12:00:00 AM EDT - 06/01/2020 12:00:00 AM EDT [facility] ([facility]) MHC Telemed E/M Lvl 3--Est pt 06/01/2020 12:00:00 AM E DT [facility] ([facility]) Extended Individual Psychotherapy - 45 min 05/24/2020 12:00:00 AM EDT - 05/24/2020 12:00:00 AM EDT [facility] ([facility]) Extended Individual Psychotherapy - 45 min 12:00:00 AM EDT [facility] ([facility]) Extended Individual Psychotherapy - 45 min 05/09/2020 12:00:00 AM EST - 05/09/2020 12:00:00 AM EST [facility] ([facility]) Extended Individual Psychotherapy - 45 min 12:00:00 AM EST [facility] ([facility]) OFFICE OUTPATIENT VISIT 15 MINUTES 04/27 12:00:00 AM EST - 04/27/2020 12:00:00 AM EST [facility] ([facility]) OFFICE OUTPATIENT VISIT 15 MINUTES 04/27/2020 12:00:00 AM EST [facility] ([facility]) Extended Individual Psychotherapy - 45 min 04/25/2020 12:00:00 AM EST - 04/25/2020 12:00:00 AM EST [facility] ([facility]) Extended Individual Psychotherapy - 45 min 12:00:00 AM EST [facility] ([facility]) Extended Individual Psychotherapy - 45 min 04/11/2020 12:00:00 AM EST - 04/11/2020 12:00:00 AM EST [facility] ([facility]) Extended Individual Psychotherapy - 45 min 12:00:00 AM EST [facility] ([facility]) NONSTRESS TEST 03/31/2020 12:00:00 AM EST eCW1 ([facility]) Extended Individual Psychotherapy - 45 min 03/24/2020 12:00:00 AM EST - 03/24/2020 12:00:00 AM EST [facility] ([facility]) Extended Individual Psychotherapy - 45 min 12:00:00 AM EST [facility] ([facility]) NONSTRESS TEST 03/23/2020 12:00:00 AM EST eCW1 ([facility]) MHC Telemed E/M Lvl 3--Est pt 03/21/2020 12:00:00 AM EST - 03/21/2020 12:00:00 AM EST [facility] ([facility]) Psychotherapy ADD ON - 30 Minutes 03/21/2020 12:00:00 AM EST [facility] ([facility]) MHC Telemed E/M Lvl 3--Est pt 03/21/2020 12:00:[address] [facility] ([facility]) Extended Individual Psychotherapy - 45 min 03/17/2020 12:00:00 AM EST - 03/17/2020 12:00:00 AM EST [facility] ([facility]) Extended Individual Psychotherapy - 45 min 12:00:00 AM EST [facility] ([facility]) NONSTRESS TEST 03/16/2020 12:00:00 AM EST eCW1 ([facility]) NONSTRESS TEST 03/08/2020 12:00:00 AM EST eCW1 ([facility]) Extended Individual Psychotherapy - 45 min 03/06/2020 12:00:00 AM EST - 03/06/2020 12:00:00 AM EST [facility] ([facility]) Extended Individual Psychotherapy - 45 min 12:00:00 AM EST [facility] ([facility]) Nurse Visit Blood Pressure Check 02/28/2020 12:00:00 A M EST eCW1 ([facility]) Extended Individual Psychotherapy - 45 min 02/11/2020 12:00:00 AM EST - 02/11/2020 12:00:00 AM EST [facility] ([facility]) Extended Individual Psychotherapy - 45 min 0 12:00:00 AM EST [facility] ([facility]) OFFICE OUTPATIENT VISIT 15 MINUTES 01/24 12:00:00 AM EST - 01/25/2020 12:00:00 AM EST [facility] ([facility]) OFFICE OUTPATIENT VISIT 15 MINUTES 01/25/2020 12:00:00 AM EST [facility] ([facility]) Extended Individual Psychotherapy - 45 min 01/25/2020 12:00:00 AM EST - 01/25/2020 12:00:00 AM EST [facility] ([facility]) Extended Individual Psychotherapy - 45 min 0 12:00:00 AM EST [facility] ([facility]) Extended Individual Psychotherapy - 45 min 01/10/2020 12:00:00 AM EST - 01/10/2020 12:00:00 AM EST [facility] ([facility]) Extended Individual Psychotherapy - 45 min 0 12:00:00 AM EST [facility] ([facility]) OFFICE OUTPATIENT VISIT 15 MINUTES 12/29 12:00:00 AM EDT - 12/30/2019 12:00:00 AM EDT [facility] ([facility]) OFFICE OUTPATIENT VISIT 15 MINUTES 12/30/2019 12:00:00 AM EDT [facility] ([facility]) Brief Individual Psychotherapy - 30 min 12/16/2019 12:00:00 AM EDT - 12/16/2019 12:00:00 AM EDT [facility] ([facility]) Brief Individual Psychotherapy - 30 min 12/16/2019 12: 00:00 AM EDT [facility] ([facility]) MHC Telemed E/M Lvl 3--Est pt 12/02/2019 12:00:00 AM EDT - 12/02/2019 12:00:00 AM EDT [facility] ([facility]) Psychotherapy ADD ON - 30 Minutes 12/02/2019 12:00:00 AM EDT [facility] ([facility]) MHC Telemed E/M Lvl 3--Est pt 12/02/2019 12:00:00 AM E DT [facility] ([facility]) Extended Individual Psychotherapy - 45 min 11/30/2019 12:00:00 AM EDT - 11/30/2019 12:00:00 AM EDT [facility] ([facility]) Extended Individual Psychotherapy - 45 min 0 12:00:00 AM EDT [facility] ([facility]) Extended Individual Psychotherapy - 45 min 11/09/2019 12:00:00 AM EDT - 11/09/2019 12:00:00 AM EDT [facility] ([facility]) Extended Individual Psychotherapy - 45 min 0 12:00:00 AM EDT [facility] ([facility]) MHC Telemed E/M Lvl 3--Est pt 11/04/2019 12:00:00 AM EDT - 11/04/2019 12:00:00 AM EDT [facility] ([facility]) Psychotherapy ADD ON - 30 Minutes 11/04/2019 12:00:00 AM EDT [facility] ([facility]) [facility] Telemed E/M Lvl 3--Est pt 11/04/2019 12:00:00 AM E DT [facility] ([facility]) Results ID Date Data Source [id number] 12/18/2020 04:19:00 PM EDT [facility] ([facility]) Name Value Range Interpretation Code Description Data Rema rce(s) Supporting Document(s) Laboratory test finding (navigational concept) 47.0 % 3 8.0-51.0 Normal (applies to non-numeric results) [facility] ([facility]) Laboratory test finding (navigational concept) 4.1 meq/L 3 .5-5.1 Normal (applies to non-numeric results) [facility] ([facility]) Laboratory test finding (navigational concept) 139 meq/L 1 36-145 Normal (applies to non-numeric results) [facility] Laboratory test finding (navigational concept) 111 mg/dL 7 0-105 Above high normal [facility]) Laboratory test finding (navigational concept) 103 meq/L 9 8-109 Normal (applies to non-numeric results) [facility]) Laboratory test finding (navigational concept) 4.5 mg/dL 4 .5-5.3 Normal (applies to non-numeric results) [facility]) Laboratory test finding (navigational concept) 0.8 mg/dL 0 .6-1.3 Normal (applies to non-numeric results) [facility]) Laboratory test finding (navigational concept) 26.0 MM/L 2 3.0-27.0 Normal (applies to non-numeric results) [facility] ([facility]) Laboratory test finding (navigational concept) 10 mg/dL 8 -26 Normal (applies to non-numeric results) [facility]) ID Date Data Source [id number] 12/18/2020 04:07:00 PM EDT [facility] Name Value Range Interpretation Code Description Data Rema rce(s) Supporting Document(s) SARS-CoV-2 (COVID 19) NEGATIVE - SARS-CoV-2 (COVID19) [facility] This lab was ordered by [facility] a nd reported by [facility]. ID Date Data Source [id number] 12/18/2020 04:07:00 PM EDT [facility]) Name Value Range Interpretation Code Description Data Rema rce(s) Supporting Document(s) Respiratory Panel Laboratory test result [facility] ([facility]) This respiratory PCR panel detects Influ [...] RESPIRATORY SYNCYTIAL VIRUS ID Date Data Source [id number] 12/18/2020 03:24:00 PM EDT [facility]) Name Value Range Interpretation Code Description Data Rema rce(s) Supporting Document(s) Hemoglobin 15.3 g/dL 12.0-15.5 Normal (applies to non-numeric resul ts) [facility] ([facility]) White Blood Count 8.9 10 4.0-10.0 Normal (applies to non-numeri c results) [facility]) Red Blood Count 5.26 10 4.00-5.40 Normal (applies to non-numeric results) [facility] ([facility]) Hematocrit 45.8 % 36.0-47.0 Normal (applies to non-numeric resul ts) [facility]) Mean Corpuscular Volume 87.1 fl 80.0-96.0 Normal ( applies to non-numeric results) [facility] ([facility]) Mean Corpuscular HGB Conc 33.4 g/dL 32.0-36.5 Normal (applies to non-numeric results) [facility] ([facility]) Mean Corpuscular Hemoglobin 29.1 pg 27.0-33.0 Norm al (applies to non-numeric results) [facility] ([facility]) Platelet Count, Automated Laboratory test result 150-450 Normal (applies to non- numeric results) [facility]) Platelet count invalid due to platelet c lumping. Suggest ordering platelet blue test to confirm clumping is not due to EDTA. Red Cell Distribution Width 14.1 % 11.5-14.5 Norm al (applies to non-numeric results) [facility] ([facility]) Neutrophils % 75.9 % 36.0-66.0 Above high normal [facility] ([facility]) Lymph % 16.4 % 24.0-44.0 Below low normal [facility] ( [facility]) Eos % 3.4 % 0.0-3.0 Above high normal [facility] ([facility]) [place] % 3.5 % 2.0-8.0 Normal (applies to non-numeric resul ts) [facility] ([facility]) Baso % 0.6 % 0.0-1.0 Normal (applies to non-numeric resul ts) [facility] ([facility]) Immature Granulocyte % 0.2 % 0-3.0 Normal (applies to non-n umeric results) [facility] ([facility]) Nucleated Red Blood Cell % 0.0 % 0-0 Normal (applies to n on-numeric results) [facility] ([facility]) Lymph # 1.5 10 1.5-5.0 Normal (applies to non-numeric resul ts) [facility] ([facility]) [place] # 0.3 10 0.0-0.8 Normal (applies to non-numeric resul ts) [facility] ([facility]) Neutrophils # 6.7 10 1.5-8.5 Normal (applies to non-numeric re sults) [facility] ([facility]) Baso # 0.1 10 0.0-0.2 Normal (applies to non-numeric resul ts) [facility] ([facility]) Eos # 0.3 10 0.0-0.5 Normal (applies to non-numeric resul ts) [facility] ([facility]) ID Date Data Source [id number] 12/04/2020 08:04:00 PM EDT [facility] ([facility]) Name Value Range Interpretation Code Description Data Rema rce(s) Supporting Document(s) CK-MB Value Mass 1.5 ng/mL Normal (applies to non-numeric results) [facility]) MB/CK Relative Index 2.08 Normal (applies to non-num prashanth results) [facility] ([facility]) <content>DIAGNOSIS CRITERIA</content>
<content>MMB ng/ml Relative Index (RI)</content>
<content>NON-AMI < or = 5 N/A</content>
<content>RAYA ZONE > 5 < or = 4</content>
<content>AMI > 5 > 4</content>
<content></content> CPK Creatine Phosphokinase 72 U/L 26-192 [place] l (applies to non-numeric results) [facility] ([facility]) Troponin I Laboratory test result Normal (applies to non-n umeric results) [facility]) <content>Troponin I Reference Interval f or Siemens [place] LOCI:</content>
<content></content>
<content>99th Percentile= 0.00-0.045 ng/ml</content>
<content></content>
<content>Risk Stratification:</content>
<content><= 0.10 ng/ml Decreased Risk for Adverse Clinical</content>
<content>Events.</content>
<content>0.10-1.50 ng/ml Increased Risk for Adverse Clinical</content>
<content>Events. Evaluation of additional</content>
<content>criterion and/or repeat testing in 2-6</content>
<content>hours is suggested to rule out myocardial</content>
<content>damage.</content>
<content>>= 1.50 ng/ml Indicative of Myocardial Injury.</content>
<content></content> ID Date Data Source [id number] 12/04/2020 08:04:00 PM EDT [facility] ([facility]) Name Value Range Interpretation Code Description Data Rema rce(s) Supporting Document(s) Glucose, Fasting 104 mg/dL 70-100 Above high normal [facility] ([facility]) Glomerular Filtration Rate Laboratory test result Normal (applies to non- numeric results) [facility] ([facility]) <content>Units are mL/min/1.73 m2</content>
<content></content>
<content>Chronic Kidney Disease Staging per NKF:</content>
<content></content>
<content>Stage I & II GFR >=60 Normal to Mildly Decreased</content>
<content>Stage III GFR 30- 59 Moderately Decreased</content>
<content>Stage IV GFR 15-29 Severely Decreased</content>
<content>Stage V GFR <15 Very Little GFR Left</content>
<content>ESRD GFR <15 on DRY STARCH SUPERVISOR</content>
<content></content> Blood Urea Nitrogen 10 mg/dL 7-18 Normal (applies to non-nume zeny results) [facility]) Creatinine For GFR 0.91 mg/dL 0.55-1.30 Normal (applies to non -numeric results) [facility] ([facility]) Sodium Level 142 meq/L 136-145 Normal (applies to non-numeric res ults) [facility] ([facility]) Potassium Serum 3.8 meq/L 3.5-5.1 Normal (applies to non-numeric results) [facility] ([facility]) Carbon Dioxide Level 26 meq/L 21-32 Normal (applies to non-num prashanth results) [facility] ([facility]) Chloride Level 108 meq/L 98-107 Above high normal [facility] ([facility]) Anion Gap 8 meq/L 8-16 Normal (applies to non-numeric resul ts) [facility] ([facility]) Alt/SGPT 34 U/L 12-78 Normal (applies to non-numeric resul ts) [facility] ([facility]) Calcium Level 9.1 mg/dL 8.5-10.1 Normal (applies to non-numeric re sults) [facility] ([facility]) Ast/Sgot 21 U/L 7-37 Normal (applies to non-numeric resul ts) [facility] ([facility]) Bilirubin,Total 0.5 mg/dL 0.2-1.0 Normal (applies to non-numeric results) [facility] ([facility]) Total Protein 7.5 GM/DL 6.4-8.2 Normal (applies to non-numeric re sults) [facility] ([facility]) Alkaline Phosphatase 89 U/L 45-117 Normal (applies to non-num prashanth results) [facility] ([facility]) Albumin/Globulin Ratio 0.9 1.2-2.2 Below low normal [facility] ([facility]) Albumin 3.5 GM/DL 3.2-5.2 Normal (applies to non-numeric resul ts) [facility] ([facility]) ID Date Data Source [id number] 12/04/2020 08:04:00 PM EDT [facility] Name Value Range Interpretation Code Description Data Rema rce(s) Supporting Document(s) White Blood Count 9.7 10 4.0-10.0 Normal (applies to non-numeri c results) [facility] Red Blood Count 4.89 10 4.00-5.40 Normal (applies to non-numeric results) [facility] ([facility]) Hematocrit 42.0 % 36.0-47.0 Normal (applies to non-numeric resul ts) [facility] Hemoglobin 14.2 g/dL 12.0-15.5 Normal (applies to non-numeric resul ts) [facility] ([facility]) Mean Corpuscular Volume 85.9 fl 80.0-96.0 Normal ( applies to non-numeric results) [facility] ([facility]) Mean Corpuscular HGB Conc 33.8 g/dL 32.0-36.5 Normal (applies to non-numeric results) [facility] ([facility]) Red Cell Distribution Width 13.4 % 11.5-14.5 Norm al (applies to non-numeric results) [facility] ([facility]) Mean Corpuscular Hemoglobin 29.0 pg 27.0-33.0 Norm al (applies to non-numeric results) [facility] ([facility]) Platelet Count, Automated 209 10 150-450 Normal (applies to non-numeric results) [facility] ([facility]) Neutrophils % 81.9 % 36.0-66.0 Above high normal [facility] ([facility]) [place] % 4.8 % 2.0-8.0 Normal (applies to non-numeric resul ts) [facility] ([facility]) Eos % 1.2 % 0.0-3.0 Normal (applies to non-numeric resul ts) [facility] ([facility]) Lymph % 11.0 % 24.0-44.0 Below low normal [facility] ( [facility]) Baso % 0.7 % 0.0-1.0 Normal (applies to non-numeric resul ts) [facility] ([facility]) Immature Granulocyte % 0.4 % 0-3.0 Normal (applies to non-n umeric results) [facility] ([facility]) Nucleated Red Blood Cell % 0.0 % 0-0 Normal (applies to n on-numeric results) [facility] ([facility]) Neutrophils # 7.9 10 1.5-8.5 Normal (applies to non-numeric re sults) [facility] ([facility]) Lymph # 1.1 10 1.5-5.0 Below low normal [facility] ( [facility]) [place] # 0.5 10 0.0-0.8 Normal (applies to non-numeric resul ts) [facility] ([facility]) Baso # 0.1 10 0.0-0.2 Normal (applies to non-numeric resul ts) [facility] ([facility]) Eos # 0.1 10 0.0-0.5 Normal (applies to non-numeric resul ts) [facility] ([facility]) ID Date Data Source [id number] 12/04/2020 05:40:00 PM EDT [facility]) Name Value Range Interpretation Code Description Data Rema rce(s) Supporting Document(s) Respiratory Panel Laboratory test result [facility] ([facility]) This respiratory PCR panel detects Influ [...] RESPIRATORY SYNCYTIAL VIRUS ID Date Data Source [id number] 12/04/2020 05:40:00 PM EDT [facility] Name Value Range Interpretation Code Description Data Rema rce(s) Supporting Document(s) SARS-CoV-2 (COVID 19) NEGATIVE - SARS-CoV-2 (COVID19) [facility] This lab was ordered by [facility] a nd reported by [facility]. ID Date Data Source [id number] 10/21/2020 10:52:00 AM EDT [facility]) Name Value Range Interpretation Code Description Data Rema rce(s) Supporting Document(s) Beta-2 Glycoprotein I Loni Iga Laboratory test result 0-25 Normal (applies to non-numeric results) [facility]) Result Units: GPI IgA units . The reference interval reflects a 3SD or 99th percentile interval, which is thought to represent a potentially clinically significant result in accordance with the International Consensus Statement on the classification criteria for definitive antiphospholipid syndrome (APS). J Thromb Haem 2006;4:295-306. Beta-2 Glycoprotein I Loni Igg Laboratory test result 0-20 Normal (applies to non-numeric results) [facility]) Result Units: GPI IgG units . The reference interval reflects a 3SD or 99th percentile interval, which is thought to represent a potentially clinically significant result in accordance with the International Consensus Statement on the classification criteria for definitive antiphospholipid syndrome (APS). J Thromb Haem 2006;4:295-306. Beta-2 Glycoprotein I Loni Igm 10 0-32 Normal (chrystal lies to non-numeric results) [facility] ([facility]) Result Units: GPI IgM units . The reference interval reflects a 3SD or 99th percentile interval, which is thought to represent a potentially clinically significant result in accordance with the International Consensus Statement on the classification criteria for definitive antiphospholipid syndrome (APS). J Thromb Haem 2006;4:295-306. ID Date Data Source [id number] 10/21/2020 10:52:00 AM EDT [facility] ([facility]) Name Value Range Interpretation Code Description Data Rema rce(s) Supporting Document(s) Histone Ab [Presence] in Serum 3.1 units 0.0-0.9 Above high [place] [facility] ([facility]) <content>Negative <1.0</c ontent>
<content>Weak Positive 1.0 - 1.5</content>
<content>Moderate Positive 1.6 - 2.5</content>
<content>Strong Positive >2.5</content>
<content></content> DNA double strand Ab [Units/volume] in Serum Laboratory test res ult Normal (applies to non-numeric results) [facility] ([facility]) Specimen Comment: Test(s) [id number] FIRST AID DIRECTOR Ab (RDL) Specimen Comment: was developed and its performance characteristics Specimen Comment: determined by [facility]. It has not been cleared or approved Specimen Comment: by the Food and Drug Administration. [employer] Laboratory test result [place] (applies to non-numeric results) [facility] ([facility]) <content>Negative <1:80</content>
<content>Borderline 1:80</content>
<content>Positive >1:80</content>
<content>ICAP nomenclature: AC-0</content>
<content>For more information about Hep-2 cell patterns use</content>
<content>ANApatterns.org, the official website for the</content>
<content>International Consensus on Antinuclear Antibody (RENÉE)</content>
<content>Patterns (ICAP).</content>
<content>Performed at: - [facility]</content>
<content>[address] [place] [address] [phone]</content>
<content>Jet Dyeing Machine Operator: Pretty Swain MD, Phone: [phone]</content>
<content>Performed at: - [facility]</content>
<content>[address] [place] [address] [phone]</content>
<content>Jet Dyeing Machine Operator: Prabhakar Hudson MD, Phone: [phone]</content>
<content>Performed at: [facility] [employer]</content>
<content>[address] [place] [address] [phone]</content>
<content>Jet Dyeing Machine Operator: Bora Wu MD, Phone: [phone]</content>
<content></content> SCL-70 extractable nuclear Ab [Units/volume] in Serum Labora torpatsy test result 0.0-0.9 Normal (applies to non-numeric results) [facility]) Specimen Comment: Test(s) [id number] FIRST AID DIRECTOR Ab (RDL) Specimen Comment: was developed and its performance characteristics Specimen Comment: determined by [facility]. It has not been cleared or approved Specimen Comment: by the Food and Drug Administration. ID Date Data Source [id number] 10/21/2020 10:52:00 AM EDT [facility] ([facility]) Name Value Range Interpretation Code Description Data Rema rce(s) Supporting Document(s) Ssa Sjogrens A Laboratory test result 0.0-0.9 Normal (a pplies to non-numeric results) [facility]) SSB Sjogrens B Laboratory test result 0.0-0.9 Normal (a pplies to non-numeric results) [facility]) ID Date Data Source [id number] 10/21/2020 10:52:00 AM EDT [facility] ([facility]) Name Value Range Interpretation Code Description Data Rema rce(s) Supporting Document(s) U1 small nuclear ribonucleoprotein Ab [Presence] in Se rum Laboratory test result Normal (applies to non-numeric results) [facility] ([facility]) <content>Negative: <20 </content>
<content>Weak Positive: 20 - 39</content>
<content>Moderate Positive: 40 - 80</content>
<content>Strong Positive: > 80</content>
<content></content> Centromere protein B Ab [Units/volume] in Serum Laboratory test result 0.0-0.9 Normal (applies to non-numeric results) [facility] ([facility]) Specimen Comment: Test(s) [id number] FIRST AID DIRECTOR Ab (RDL) Specimen Comment: was developed and its performance characteristics Specimen Comment: determined by [facility]. It has not been cleared or approved Specimen Comment: by the Food and Drug Administration. [place] extractable nuclear Ab [Units/volume] in Serum Laboratory test result Normal (applies to non-numeric results) [facility] ([facility]) <content>Negative: <20 </content>
<content>Weak Positive: 20 - 39</content>
<content>Moderate Positive: 40 - 80</content>
<content>Strong Positive: > 80</content>
<content></content> ID Date Data Source [id number] 10/21/2020 10:52:00 AM EDT [facility]) Name Value Range Interpretation Code Description Data Rema rce(s) Supporting Document(s) Cardiolipin Igg Antibody 10 GPLU/mL 0-14 Normal (applies to non-numeric results) [facility]) <content>Negative: <15</con tent>
<content>Indeterminate: 15 - 20</content>
<content>Low-Med Positive: >20 - 80</content>
<content>High Positive: >80</content>
<content></content> Cardiolipin Iga Antibody Laboratory test result 0-11 Normal (applies to non- numeric results) [facility]) <content>Negative: <12</con tent>
<content>Indeterminate: 12 - 20</content>
<content>Low-Med Positive: >20 - 80</content>
<content>High Positive: >80</content>
<content></content> Cardiolipin Igm Antibody 9 MPLU/mL 0-12 Normal (applies to non-numeric results) [facility] ([facility]) <content>Negative: <13</con tent>
<content>Indeterminate: 13 - 20</content>
<content>Low-Med Positive: >20 - 80</content>
<content>High Positive: >80</content>
<content></content> ID Date Data Source [id number] 10/02/2020 12:55:00 PM EDT [facility]) Name Value Range Interpretation Code Description Data Rema rce(s) Supporting Document(s) Creatine kinase [Enzymatic activity/volume] in Serum or Plasma 4 3 U/L 26-192 Normal (applies to non-numeric results) [facility]) <content>note:<nlbl:demographic_changed> </content>
<content></content> Phosphate [Moles/volume] in Serum or Plasma 3.6 mg/dL 2.5- 4.9 Normal (applies to non-numeric results) [facility] ([facility] ) <content>note:<nlbl:demographic_changed> </content>
<content></content> Iron [Mass/volume] in Serum or Plasma 50 ug/dL 50-170 Normal (applies to non- numeric results) [facility] ([facility]) <content>note:<nlbl:demographic_changed> </content>
<content></content> Magnesium [Mass/volume] in Serum or Plasma 2.1 mg/dL 1.8-2 .4 Normal (applies to non-numeric results) [facility] ([facility]) <content>note:<nlbl:demographic_changed> </content>
<content></content> Complement C3 [Mass/volume] in Serum or Plasma 148 mg/dL 9 0-180 Normal (applies to non-numeric results) [facility] ([facility]) <content>note:<nlbl:demographic_changed> </content>
<content></content> Complement C4 [Mass/volume] in Serum or Plasma 23 mg/dL 1 0-40 Normal (applies to non-numeric results) [facility] ([facility] ) <content>note:<nlbl:demographic_changed> </content>
<content></content> Calcidiol [Mass/volume] in Serum or Plasma 24.7 ng/mL 30.0- 100.0 Below low normal [facility] ([facility]) <content>note:<nlbl:demographic_changed> </content>
<content></content> Thyrotropin [Units/volume] in Serum or Plasma 0.828 uIU/ML 0. 358-3.740 Normal (applies to non-numeric results) [facility] ([facility]) <content>note:<nlbl:demographic_changed> </content>
<content></content> Cobalamin (Vitamin B12) [Mass/volume] in Serum or Plasma 710 pg/ mL 247-911 Normal (applies to non-numeric results) [facility] ([facility]) VITAMIN B12 NORMAL RANGE NORMAL 247 - 911 PG/ML INDETERMINATE 211 - 246 PG/ML DEFICIENT LESS THAN 211 PG/ML C reactive protein [Mass/volume] in Serum or Plasma by High sensitivity method 1.67 mg/dL 0.00-0.30 Above high normal [facility] ([facility]) <content>note:<nlbl:demographic_changed> </content>
<content></content> ID Date Data Source [id number] 10/02/2020 12:54:00 PM EDT [facility] ([facility]) Name Value Range Interpretation Code Description Data Rema rce(s) Supporting Document(s) Hexagonal Phase Phospholipid 0 sec 0-11 Normal (appl ies to non-numeric results) [facility] ([facility]) Laboratory test finding (navigational concept) Laboratory test r esult Normal (applies to non-numeric results) [facility] ([facility]) . Results do not indicate the presence of a Lupus Anticoagulant: abnormal high screening results (PTT-LA, dRVVT, mixing studies), may be due to medication (heparin, warfarin, aspirin), Factor inhibitors, anticardiolipin antibodies, or poor specimen integrity. Performed at: [address] [phone] [id number] Jet Dyeing Machine Operator: Prabhakar Hudson MD, Phone: [phone] ID Date Data Source [id number] 10/02/2020 12:54:00 PM EDT [facility] ([facility]) Name Value Range Interpretation Code Description Data Rema rce(s) Supporting Document(s) Lupus Confirm Stago 1.27 0.00-1.20 Above high normal [facility] ([facility]) NORMALIZED RATIO IS EQUAL TO OR GREATER THAN 1.20 LA IS PRESENT. SPECIMEN WILL BE SENT TO [facility] [place], [address] [place]. [phone] REFERE [facility] FOR CONFIRMATION. ID Date Data Source [id number] 10/02/2020 12:54:00 PM EDT [facility] ([facility]) Name Value Range Interpretation Code Description Data Rema rce(s) Supporting Document(s) PTT Lupus Type Anticoag Screen 1.4 0-1.2 Above high [place] [facility] ([facility]) RESULT IS 1.2 OR GREATER, FURTHER [...] a specific inhibitor. ID Date Data Source [id number] 10/02/2020 12:54:00 PM EDT [facility]) Name Value Range Interpretation Code Description Data Rema rce(s) Supporting Document(s) Erythrocyte sedimentation rate by Westergren method 45 mm/hr 0-20 Above high normal [facility] ([facility]) Complement total hemolytic CH50 [Units/volume] in Seru m or Plasma Laboratory test result Normal (applies to non-numeric results) [facility] ([facility]) Age Male Female 1 - 30 [...] range values. Performed at: RN - [facility] [address] [id number] [employer] Operator: Pretty Swain MD, Phone: [phone] ID Date Data Source [id number] 10/02/2020 12:54:00 PM EDT [facility]) Name Value Range Interpretation Code Description Data Rema rce(s) Supporting Document(s) Red Blood Count 4.54 10 4.00-5.40 Normal (applies to non-numeric results) [facility] ([facility]) White Blood Count 7.8 10 4.0-10.0 Normal (applies to non-numeri c results) [facility] ([facility]) Hematocrit 39.2 % 36.0-47.0 Normal (applies to non-numeric resul ts) [facility] ([facility]) Mean Corpuscular Volume 86.3 fl 80.0-96.0 Normal ( applies to non-numeric results) [facility] ([facility]) Hemoglobin 12.9 g/dL 12.0-15.5 Normal (applies to non-numeric resul ts) [facility]) Mean Corpuscular HGB Conc 32.9 g/dL 32.0-36.5 Normal (applies to non-numeric results) [facility]) Mean Corpuscular Hemoglobin 28.4 pg 27.0-33.0 Norm al (applies to non-numeric results) [facility] ([facility]) Red Cell Distribution Width 13.3 % 11.5-14.5 Norm al (applies to non-numeric results) [facility] ([facility]) Platelet Count, Automated 212 10 150-450 Normal (applies to non-numeric results) [facility] ([facility]) Neutrophils % 59.4 % 36.0-66.0 Normal (applies to non-numeric re sults) [facility] ([facility]) Lymph % 27.9 % 24.0-44.0 Normal (applies to non-numeric resul ts) [facility] ([facility]) [place] % 6.4 % 2.0-8.0 Normal (applies to non-numeric resul ts) [facility] ([facility]) Baso % 0.4 % 0.0-1.0 Normal (applies to non-numeric resul ts) [facility]) Eos % 5.6 % 0.0-3.0 Above high normal [facility] ([facility]) Immature Granulocyte % 0.3 % 0-3.0 Normal (applies to non-n umeric results) [facility] ([facility]) Nucleated Red Blood Cell % 0.0 % 0-0 Normal (applies to n on-numeric results) [facility] ([facility]) Neutrophils # 4.6 10 1.5-8.5 Normal (applies to non-numeric re sults) [facility] ([facility]) Lymph # 2.2 10 1.5-5.0 Normal (applies to non-numeric resul ts) [facility] ([facility]) Baso # 0.0 10 0.0-0.2 Normal (applies to non-numeric resul ts) [facility] ([facility]) [place] # 0.5 10 0.0-0.8 Normal (applies to non-numeric resul ts) [facility] ([facility]) Eos # 0.4 10 0.0-0.5 Normal (applies to non-numeric resul ts) [facility] ([facility]) ID Date Data Source LUPC 10/02/2020 12:00:00 AM EDT eCW1 ([facility]) Name Value Range Interpretation Code Description Data Rema rce(s) Supporting Document(s) 1.27 0.00-1.20 NORMALIZED RATIO eCW1 ([facility]) ID Date Data Source TSH 10/02/2020 12:00:00 AM EDT eCW1 ([facility]) Name Value Range Interpretation Code Description Data Rema rce(s) Supporting Document(s) 0.828 0.358-3.740 THYROID STIMULATING HORM ONE eCW1 ([facility]) ID Date Data Source LUPUS TYPE ANTICOAGULANT SCREE 10/02/2020 12:00:00 AM EDT eC W1 ([facility]) Name Value Range Interpretation Code Description Data Rema rce(s) Supporting Document(s) 1.4 0-1.2 PTT LUPUS TYPE ANTICOAG S CREEN eCW1 ([facility]) ID Date Data Source COMPLEMENT TOTAL (CH50) 10/02/2020 12:00:00 AM EDT eCW1 ([facility]) Name Value Range Interpretation Code Description Data Rema rce(s) Supporting Document(s) > 60 >41 COMPLEMENT TOTAL (CH50) eCW1 ( [facility]) ID Date Data Source VITAMIN B12 LEVEL 10/02/2020 12:00:00 AM EDT eCW1 ([facility]) Name Value Range Interpretation Code Description Data Rema rce(s) Supporting Document(s) 217 233-318 VITAMIN B12 LEVEL eCW1 ([facility]) ID Date Data Source VITAMIN D 25-HYDROXY 10/02/2020 12:00:00 AM EDT eCW1 ([facility]) Name Value Range Interpretation Code Description Data Rema rce(s) Supporting Document(s) 24.7 30.0-100.0 TOTAL 25(OH) VITAMIN D eC W1 ([facility]) ID Date Data Source [facility] Hand, complete 10/02/2020 12:00:00 AM EDT eCW1 ([facility]) Name Value Range Interpretation Code Description Data Rema rce(s) Supporting Document(s) [facility] Hand, complete eCW1 ([facility]) ID Date Data Source [facility] Wrist, complete 10/02/2020 12:00:00 AM EDT eCW1 ([facility]) Name Value Range Interpretation Code Description Data Rema rce(s) Supporting Document(s) [facility] Wrist, complete eCW1 ([facility]) ID Date Data Source [facility] Ankle, complete 10/02/2020 12:00:00 AM EDT eCW1 ([facility]) Name Value Range Interpretation Code Description Data Rema rce(s) Supporting Document(s) [facility] Ankle, complete eCW1 ([facility]) ID Date Data Source MAGNESIUM LEVEL 10/02/2020 12:00:00 AM EDT eCW1 ([facility]) Name Value Range Interpretation Code Description Data Rema rce(s) Supporting Document(s) 2.1 1.8-2.4 MAGNESIUM LEVEL eCW1 ([facility]) ID Date Data Source IRON (FE) 10/02/2020 12:00:00 AM EDT eCW1 ([facility]) Name Value Range Interpretation Code Description Data Rema rce(s) Supporting Document(s) 50 50-170 IRON (FE) eCW1 ([facility]) ID Date Data Source CPK CREATINE PHOSPHOKINASE 10/02/2020 12:00:00 AM EDT eCW1 ( [facility]) Name Value Range Interpretation Code Description Data Rema rce(s) Supporting Document(s) 43 26-192 CPK CREATINE PHOSPHOKINASE eCW 1 ([facility]) ID Date Data Source PHOSPHOROUS LEVEL 10/02/2020 12:00:00 AM EDT eCW1 ([facility]) Name Value Range Interpretation Code Description Data Rema rce(s) Supporting Document(s) 3.6 2.5-4.9 PHOSPHORUS LEVEL eCW1 ([facility]) ID Date Data Source ERYTHROCYTE SEDIMENTATION RATE 10/02/2020 12:00:00 AM EDT eC W1 ([facility]) Name Value Range Interpretation Code Description Data Rema rce(s) Supporting Document(s) 45 0-20 ERYTHROCYTE SEDIMENTATION RATE eCW1 ([facility]) ID Date Data Source C REACTIVE PROTEIN QUANTITATIV (At [facility]) 10/02/2020 12:00 :00 AM EDT eCW1 ([facility]) Name Value Range Interpretation Code Description Data Rema rce(s) Supporting Document(s) 1.67 0.00-0.30 C REACTIVE PROTEIN QUANTI TATIV eCW1 ([facility]) ID Date Data Source CBC with Differential 10/02/2020 12:00:00 AM EDT eCW1 ([facility]) Name Value Range Interpretation Code Description Data Rema rce(s) Supporting Document(s) 4.54 4.00-5.40 RED BLOOD COUNT eCW1 ([facility]) 7.8 4.0-10.0 WHITE BLOOD COUNT eCW1 ([facility]) 39.2 36.0-47.0 HEMATOCRIT eCW1 ([facility]) 12.9 12.0-15.5 HEMOGLOBIN eCW1 ([facility]) 86.3 80.0-96.0 MEAN CORPUSCULAR VOLUME e CW1 ([facility]) 13.3 11.5-14.5 RED CELL DISTRIBUTION WID TH eCW1 ([facility]) 28.4 27.0-33.0 MEAN CORPUSCULAR HEMOGLOB IN eCW1 ([facility]) 32.9 32.0-36.5 MEAN CORPUSCULAR HGB CONC eCW1 ([facility]) 59.4 36.0-66.0 NEUTROPHILS % W1 ([facility]) 212 150-450 PLATELET COUNT, AUTOMATED W1 ([facility]) 27.9 24.0-44.0 LYMPH % eCW1 ([facility]) 0.4 0.0-1.0 BASO % eCW1 ([facility]) 5.6 0.0-3.0 EOS % eCW1 ([facility]) 6.4 2.0-8.0 MONO % eCW1 ([facility]) 0.5 0.0-0.8 MONO # eCW1 ([facility]) 2.2 1.5-5.0 LYMPH # eCW1 ([facility]) 4.6 1.5-8.5 NEUTROPHILS # eCW1 ([facility]) 0.0 0.0-0.2 BASO # eCW1 ([facility]) 0.4 0.0-0.5 EOS # eCW1 ([facility]) ID Date Data Source COMPLEMENT C4 10/02/2020 12:00:00 AM EDT eCW1 ([facility]) Name Value Range Interpretation Code Description Data Rema rce(s) Supporting Document(s) 23 10-40 COMPLEMENT C4 eCW1 ([facility]) ID Date Data Source COMPLEMENT C3 10/02/2020 12:00:00 AM EDT eCW1 ([facility]) Name Value Range Interpretation Code Description Data Rema rce(s) Supporting Document(s) 148 90-180 COMPLEMENT C3 W1 ([facility]) ID Date Data Source UA URINALYSIS 09/28/2020 12:00:00 AM EDT eCW1 ([facility]) Name Value Range Interpretation Code Description Data Rema rce(s) Supporting Document(s) UA URINALYSIS eCW1 ([facility]) ID Date Data Source TOTAL PROTEIN,RANDOM URINE 09/28/2020 12:00:00 AM EDT eCW1 ( [facility]) Name Value Range Interpretation Code Description Data Rema rce(s) Supporting Document(s) 12.4 0.0-12.0 TOTAL PROTEIN,RANDOM URIN E eCW1 ([facility]) ID Date Data Source CREATININE,RANDOM URINE 09/28/2020 12:00:00 AM EDT eCW1 ([facility]) Name Value Range Interpretation Code Description Data Rema rce(s) Supporting Document(s) 175.0 CREATININE,RANDOM URINE eCW1 ( [facility]) ID Date Data Source [id number] 06/19/2020 10:39:00 AM EDT MEDENT ([facility]) Name Value Range Interpretation Code Description Data Rema rce(s) Supporting Document(s) Anti Double Strand-Dna AB 32 IU/ml 0-9 Above high normal MEDENT ([facility]) <content>Negative <5</content>
<content>Equivocal 5 - 9</content>
<content>Positive >9</content>
<content></content> Antinuclear Antibodies Direct Laboratory test result Abnormal (applies to non- numeric results) MEDENT ([facility]) FIRST AID DIRECTOR Antibodies Laboratory test result 0.0-0.9 Normal (a pplies to non-numeric results) MEDENT ([facility]) Camargo Antibodies Laboratory test result 0.0-0.9 Normal ( applies to non-numeric results) MEDENT ([facility]) Sjogren's Anti SS-A Laboratory test result 0.0-0.9 [place] l (applies to non- numeric results) MEDENT ([facility]) Sjogren's Anti SS-B Laboratory test result 0.0-0.9 [place] l (applies to non- numeric results) MEDENT ([facility]) Renée Comment Laboratory test result Normal (applies to non- numeric results) ELVIN ([facility]) . Autoantibody Disease Association Condition Frequency [...] (anti-[place]) SLE 15 - 30% ------- --------- FIRST AID DIRECTOR Mixed Connective Tissue Disease 95% (U1 nRNP, SLE 30 - 50% anti-ribonucleoprotein) Polymyositis and/or Dermatomyositis 20% -------- --------- Scl-70 (antiDNA Scleroderma (diffuse) 20 - 35% topoisomerase) Crest 13% -------- --------- Edel-1 Polymyositis and/or Dermatomyositis 20 - 40% -------- --------- Centromere B Scleroderma - Crest variant 80% Performed at: - [facility] [address] [id number] Jet Dyeing Machine Operator: Pretty Swain MD, Phone: [phone] ID Date Data Source [id number] 06/19/2020 10:39:00 AM EDT MEDENT ([facility]) Name Value Range Interpretation Code Description Data Rema rce(s) Supporting Document(s) Glucose, Fasting 83 mg/dL 70-100 Normal (applies to non-numeric results) MEDENT ([facility]) Blood Urea Nitrogen 22 mg/dL 7-18 Above high normal MEDENT ([facility]) Creatinine For GFR 0.83 mg/dL 0.55-1.30 Normal (applies to non -numeric results) MEDENT ([facility]) Sodium Level 139 meq/L 136-145 Normal (applies to non-numeric res ults) MEDENT ([facility]) Glomerular Filtration Rate Laboratory test result Normal (applies to non- numeric results) MEDENT ([facility]) <content>Units are mL/min/1.73 m2</content>
<content></content>
<content>Chronic Kidney Disease Staging per NKF:</content>
<content></content>
<content>Stage I & II GFR >=60 Normal to Mildly Decreased</content>
<content>Stage III GFR 30- 59 Moderately Decreased</content>
<content>Stage IV GFR 15-29 Severely Decreased</content>
<content>Stage V GFR <15 Very Little GFR Left</content>
<content>ESRD GFR <15 on DRY STARCH SUPERVISOR</content>
<content></content> Carbon Dioxide Level 28 meq/L 21-32 Normal (applies to non-num prashanth results) [facility] ([facility]) Chloride Level 106 meq/L 98-107 Normal (applies to non-numeric r esults) [facility]) Potassium Serum 4.3 meq/L 3.5-5.1 Normal (applies to non-numeric results) [facility] ([facility]) Anion Gap 5 meq/L 8-16 Below low normal [facility] ( [facility]) Calcium Level 9.1 mg/dL 8.5-10.1 Normal (applies to non-numeric re sults) [facility] ([facility]) Alt/SGPT 29 U/L 12-78 Normal (applies to non-numeric resul ts) [facility] Alkaline Phosphatase 103 U/L 45-117 Normal (applies to non-num prashanth results) [facility]) Ast/Sgot 17 U/L 7-37 Normal (applies to non-numeric resul ts) [facility] Total Protein 7.1 GM/DL 6.4-8.2 Normal (applies to non-numeric re sults) [facility]) Bilirubin,Total 0.4 mg/dL 0.2-1.0 Normal (applies to non-numeric results) [facility] Albumin 3.5 GM/DL 3.2-5.2 Normal (applies to non-numeric resul ts) MEDENT ([facility]) Albumin/Globulin Ratio 1.0 1.2-2.2 Below low normal [facility] ([facility]) ID Date Data Source [id number] 06/19/2020 10:39:00 AM EDT [facility] Name Value Range Interpretation Code Description Data Rema rce(s) Supporting Document(s) Nuclear Ab [Titer] in Serum by Immunofluorescence Laboratory test res ult [facility] ([facility]) Erythrocyte sedimentation rate by Westergren method 41 mm/hr 0-20 Above high normal [facility] ([facility]) C reactive protein [Mass/volume] in Serum or Plasma by High sensitivity method 1.13 mg/dL 0.00-0.30 Above high normal [facility] ([facility]) <content>note:<nlbl:demographic_changed> </content>
<content></content> Rheumatoid factor [Units/volume] in Serum or Plasma Laboratory t est result Normal (applies to non-numeric results) [facility] ([facility]) <content>note:<nlbl:demographic_changed> </content>
<content></content> ID Date Data Source [id number] 06/19/2020 10:39:00 AM EDT [facility] ([facility]) Name Value Range Interpretation Code Description Data Rema rce(s) Supporting Document(s) White Blood Count 7.1 10 4.0-10.0 Normal (applies to non-numeri c results) [facility] ([facility]) Red Blood Count 4.67 10 4.00-5.40 Normal (applies to non-numeric results) [facility] ([facility]) Hemoglobin 13.5 g/dL 12.0-15.5 Normal (applies to non-numeric resul ts) [facility] ([facility]) Hematocrit 42.2 % 36.0-47.0 Normal (applies to non-numeric resul ts) [facility] ([facility]) Mean Corpuscular Hemoglobin 28.9 pg 27.0-33.0 Norm al (applies to non-numeric results) MED[facility] ([facility]) Mean Corpuscular Volume 90.4 fl 80.0-96.0 Normal ( applies to non-numeric results) [facility] ([facility]) Platelet Count, Automated 238 10 150-450 Normal (applies to non-numeric results) [facility] ([facility]) Mean Corpuscular HGB Conc 32.0 g/dL 32.0-36.5 Normal (applies to non-numeric results) [facility] ([facility]) Red Cell Distribution Width 13.1 % 11.5-14.5 Norm al (applies to non-numeric results) [facility] ([facility]) Lymph % 28.2 % 24.0-44.0 Normal (applies to non-numeric resul ts) [facility] ([facility]) Neutrophils % 56.9 % 36.0-66.0 Normal (applies to non-numeric re sults) [facility] ([facility]) Eos % 8.1 % 0.0-3.0 Above high normal [facility] ([facility]) [place] % 5.5 % 2.0-8.0 Normal (applies to non-numeric resul ts) [facility] ([facility]) Baso % 1.0 % 0.0-1.0 Normal (applies to non-numeric resul ts) [facility] ([facility]) Immature Granulocyte % 0.3 % 0-3.0 Normal (applies to non-n umeric results) [facility] ([facility]) Nucleated Red Blood Cell % 0.0 % 0-0 Normal (applies to n on-numeric results) [facility] ([facility]) Neutrophils # 4.0 10 1.5-8.5 Normal (applies to non-numeric re sults) [facility] ([facility]) Lymph # 2.0 10 1.5-5.0 Normal (applies to non-numeric resul ts) [facility] ([facility]) Eos # 0.6 10 0.0-0.5 Above high normal [facility] ([facility]) [place] # 0.4 10 0.0-0.8 Normal (applies to non-numeric resul ts) [facility] ([facility]) Baso # 0.1 10 0.0-0.2 Normal (applies to non-numeric resul ts) [facility]) ID Date Data Source [id number] 06/15/2020 03:00:00 PM EDT MEDENT ([facility]) Name Value Range Interpretation Code Description Data Rema rce(s) Supporting Document(s) Pelvis Complete - 3 Views Laboratory test result [facility] ([facility]) Hip Complete RT Laboratory test result [facility] ([facility]) Spine LS Complete Laboratory test result [facility] ([facility]) Spine Thoracic Laboratory test result [facility] ([facility]) ID Date Data Source [id number] 04/23/2020 06:59:00 PM EST MEDENT ([facility]) Name Value Range Interpretation Code Description Data Rema rce(s) Supporting Document(s) Laboratory test finding (navigational concept) 40.0 % 3 8.0-51.0 Normal (applies to non-numeric results) [facility]) Laboratory test finding (navigational concept) 92 mg/dL 7 0-105 Normal (applies to non-numeric results) [facility]) Laboratory test finding (navigational concept) 3.7 meq/L 3 .5-5.1 Normal (applies to non-numeric results) [facility] ([facility]) Laboratory test finding (navigational concept) 142 meq/L 1 36-145 Normal (applies to non-numeric results) [facility] ([facility]) Laboratory test finding (navigational concept) 4.8 mg/dL 4 .5-5.3 Normal (applies to non-numeric results) [facility] ([facility]) Laboratory test finding (navigational concept) 104 meq/L 9 8-109 Normal (applies to non-numeric results) [facility] ([facility]) Laboratory test finding (navigational concept) 30.0 MM/L 2 3.0-27.0 Above high normal [facility] ([facility]) Laboratory test finding (navigational concept) 18 mg/dL 8 -26 Normal (applies to non-numeric results) [facility] ([facility]) Laboratory test finding (navigational concept) 1.1 mg/dL 0 .6-1.3 Normal (applies to non-numeric results) [facility] ([facility]) ID Date Data Source [id number] 04/23/2020 06:52:00 PM EST [facility] ([facility]) Name Value Range Interpretation Code Description Data Rema rce(s) Supporting Document(s) Reflex Urine Culture Laboratory test result Norm al (applies to non-numeric results) [facility] ([facility]) FULL REPORT IN LAB NOTES (eCW and Medent ). NO GROWTH CLINICAL SIGNIFICANCE 2 OR MORE ORGANISMS ID Date Data Source [id number] 04/23/2020 06:52:00 PM EST [facility] ([facility]) Name Value Range Interpretation Code Description Data Rema rce(s) Supporting Document(s) Appearance, Urine RFX Laboratory test result Nor mal (applies to non-numeric results) [facility]) PH,Urine RFX 6.0 units 5.0-9.0 Normal (applies to non-numeric res ults) [facility]) Color, Urine RFX Laboratory test result Normal ( applies to non-numeric results) [facility] ([facility]) Specific [place] Ur Auto RFX 1.020 1.002-1.035 Nor mal (applies to non-numeric results) [facility]) Protein, Urine Auto RFX Laboratory test result N ormal (applies to non-numeric results) [facility] ([facility]) Glucose, Urine (Ua) Auto RFX Laboratory test result Normal (applies to non- numeric results) [facility] ([facility]) Ketone, Urine Auto RFX Laboratory test result No rmal (applies to non-numeric results) [facility] ([facility]) Bilirubin, Urine Auto RFX Laboratory test result Normal (applies to non- numeric results) [facility] ([facility]) Urobilinogen, Urine Auto RFX 0.2 mg/dL 0.0-2.0 Nor mal (applies to non-numeric results) [facility] ([facility]) Nitrite, Urine Auto RFX Laboratory test result N ormal (applies to non-numeric results) [facility] ([facility]) Blood, Urine Blood RFX Laboratory test result Above high n ormal MED[facility] ([facility]) Leukocyte Esterase Ur Auto RFX Laboratory test result Abov e high normal [facility] ([facility]) WBC, Urine Auto RFX 32 /HPF 0-3 Above high normal [facility] ([facility]) RBC, Urine Auto RFX Laboratory test result 0-3 Above high norm al [facility] ([facility]) Bacteria, Urine Auto RFX Laboratory test result Above high normal [facility] ([facility]) Squam Epithelial Cell Ur Aurfx 1 /HPF 0-6 N ormal (applies to non-numeric results) [facility] ([facility]) Transitional Epithelial AU RFX Laboratory test result Normal (applies to non- numeric results) [facility] ([facility]) Hyaline Cast, Urine Auto RFX 0 /LPF 0-1 Normal (appl ies to non-numeric results) [facility]) ID Date Data Source [id number] 04/23/2020 06:52:00 PM EST MEDENT ([facility]) Name Value Range Interpretation Code Description Data Rema rce(s) Supporting Document(s) Lipase [Enzymatic activity/volume] in Serum or Plasma 194 U/L 73-393 Normal (applies to non-numeric results) [facility] ([facility]) <content>note:<nlbl:demographic_changed> </content>
<content></content> ID Date Data Source [id number] 04/23/2020 06:52:00 PM EST MEDENT ([facility]) Name Value Range Interpretation Code Description Data Rema rce(s) Supporting Document(s) Ast/Sgot 15 U/L 7-37 Normal (applies to non-numeric resul ts) MED[facility] ([facility]) Alt/SGPT 24 U/L 12-78 Normal (applies to non-numeric resul ts) [facility] ([facility]) Alkaline Phosphatase 130 U/L 45-117 Above high normal [facility] ([facility]) Bilirubin,Total 0.2 mg/dL 0.2-1.0 Normal (applies to non-numeric results) [facility] ([facility]) Bilirubin,Direct Laboratory test result 0.0-0.2 Normal ( applies to non-numeric results) [facility] ([facility]) Total Protein 7.4 GM/DL 6.4-8.2 Normal (applies to non-numeric re sults) [facility] ([facility]) Albumin 3.2 GM/DL 3.2-5.2 Normal (applies to non-numeric resul ts) [facility] ([facility]) Albumin/Globulin Ratio 0.8 1.2-2.2 Below low normal [facility] ([facility]) ID Date Data Source [id number] 04/23/2020 06:52:00 PM EST MEDENT ([facility]) Name Value Range Interpretation Code Description Data Rema rce(s) Supporting Document(s) White Blood Count 9.5 10 4.0-10.0 Normal (applies to non-numeri c results) [facility] ([facility]) Red Blood Count 4.44 10 4.00-5.40 Normal (applies to non-numeric results) [facility] ([facility]) Hemoglobin 13.2 g/dL 12.0-15.5 Normal (applies to non-numeric resul ts) [facility] ([facility]) Hematocrit 40.4 % 36.0-47.0 Normal (applies to non-numeric resul ts) [facility]) Mean Corpuscular Volume 91.0 fl 80.0-96.0 Normal ( applies to non-numeric results) [facility] ([facility]) Mean Corpuscular Hemoglobin 29.7 pg 27.0-33.0 Norm al (applies to non-numeric results) [facility] ([facility]) Mean Corpuscular HGB Conc 32.7 g/dL 32.0-36.5 Normal (applies to non-numeric results) [facility] ([facility]) Neutrophils % 56.5 % 36.0-66.0 Normal (applies to non-numeric re sults) [facility] ([facility]) Platelet Count, Automated 294 10 150-450 Normal (applies to non-numeric results) [facility] ([facility]) Red Cell Distribution Width 12.8 % 11.5-14.5 Norm al (applies to non-numeric results) [facility] ([facility]) Lymph % 29.0 % 24.0-44.0 Normal (applies to non-numeric resul ts) [facility] ([facility]) [place] % 5.4 % 2.0-8.0 Normal (applies to non-numeric resul ts) [facility] ([facility]) Baso % 0.8 % 0.0-1.0 Normal (applies to non-numeric resul ts) [facility] ([facility]) Eos % 8.1 % 0.0-3.0 Above high normal [facility] ([facility]) Nucleated Red Blood Cell % 0.0 % 0-0 Normal (applies to n on-numeric results) [facility] ([facility]) Immature Granulocyte % 0.2 % 0-3.0 Normal (applies to non-n umeric results) [facility] ([facility]) [place] # 0.5 10 0.0-0.8 Normal (applies to non-numeric resul ts) [facility] ([facility]) Neutrophils # 5.3 10 1.5-8.5 Normal (applies to non-numeric re sults) [facility] ([facility]) Lymph # 2.8 10 1.5-5.0 Normal (applies to non-numeric resul ts) [facility] ([facility]) Eos # 0.8 10 0.0-0.5 Above high normal [facility] ([facility]) Baso # 0.1 10 0.0-0.2 Normal (applies to non-numeric resul ts) [facility] ([facility]) ID Date Data Source [id number] 04/06/2020 06:45:00 PM EST [facility] Name Value Range Interpretation Code Description Data Rema rce(s) Supporting Document(s) SARS coronavirus 2 RNA [Presence] in Res piratory specimen by PATSY with probe detection NEGATIVE [facility] This lab was ordered by [facility] a nd reported by [facility]. ID Date Data Source Comprehensive Metabolic Profile (CMP) 03/31/2020 12:00:00 AM EST eCW1 ([facility]) Name Value Range Interpretation Code Description Data Rema rce(s) Supporting Document(s) 116 70-100 GLUCOSE, FASTING eCW1 ([facility]) 0.67 0.55-1.30 CREATININE FOR GFR eCW1 ([facility]) 9 7-18 BLOOD UREA NITROGEN eCW1 ([facility]) > 60.0 >60 GLOMERULAR FILTRATION RATE eCW 1 ([facility]) 138 136-145 SODIUM LEVEL eCW1 ([facility]placed by [facility]) 4.4 3.5-5.1 POTASSIUM SERUM eCW1 ([facility]) 103 98-107 CHLORIDE LEVEL eCW1 ([facility]) 9.1 8.5-10.1 CALCIUM LEVEL eCW1 ([facility]) 29 21-32 CARBON DIOXIDE LEVEL eCW1 ([facility]) 13 12-78 ALT/SGPT eCW1 ([facility]) 6 7-37 AST/SGOT eCW1 ([facility]) 0.2 0.2-1.0 BILIRUBIN,TOTAL eCW1 ([facility]) 2.4 3.2-5.2 ALBUMIN eCW1 ([facility]) 6.4 6.4-8.2 TOTAL PROTEIN eCW1 ([facility]) 122 45-117 ALKALINE PHOSPHATASE eCW1 ([facility]) 0.6 1.2-2.2 ALBUMIN/GLOBULIN RATIO eCW1 ([facility]) ID Date Data Source CBC - Complete Blood Count 03/31/2020 12:00:00 AM EST eCW1 ( [facility]) Name Value Range Interpretation Code Description Data Rema rce(s) Supporting Document(s) 4.28 4.00-5.40 RED BLOOD COUNT eCW1 ([facility]) 12.1 4.0-10.0 WHITE BLOOD COUNT eCW1 ([facility]) 13.2 12.0-15.5 HEMOGLOBIN eCW1 ([facility]) 30.8 27.0-33.0 MEAN CORPUSCULAR HEMOGLOB IN eCW1 ([facility]) 39.0 36.0-47.0 HEMATOCRIT eCW1 ([facility]) 33.8 32.0-36.5 MEAN CORPUSCULAR HGB CONC eCW1 ([facility]) 91.1 80.0-96.0 MEAN CORPUSCULAR VOLUME e CW1 ([facility]) 197 150-450 PLATELET COUNT, AUTOMATED eCW1 ([facility]) 13.8 11.5-14.5 RED CELL DISTRIBUTION WID TH eCW1 ([facility]) ID Date Data Source Pre Eclampsia Profile 03/08/2020 12:00:00 AM EST eCW1 ([facility]) Name Value Range Interpretation Code Description Data Rema rce(s) Supporting Document(s) 0.62 0.55-1.30 CREATININE FOR GFR eCW1 ([facility]) 7 7-37 AST/SGOT eCW1 ([facility]) > 60.0 >60 GLOMERULAR FILTRATION RATE eCW 1 ([facility]) 16 12-78 ALT/SGPT eCW1 ([facility]) 145 84-246 LDH LACTATE DEHYDROGENASE eCW1 ([facility]) 3.6 2.6-6.0 URIC ACID eCW1 ([facility]) 0.2 0.2-1.0 BILIRUBIN,TOTAL eCW1 ([facility]) ID Date Data Source Glucose Challenge Test 1 Hour 01/24/2020 12:00:00 AM EST eCW 1 ([facility]) Name Value Range Interpretation Code Description Data Rema rce(s) Supporting Document(s) 121 LESS THAN 140 GLUCOSE CHALLENGE TEST 1 HOUR eCW1 ([facility]) ID Date Data Source Type and Screen (D Rh Antibody Screen) 01/24/2020 12:00:00 A M EST eCW1 ([facility]) Name Value Range Interpretation Code Description Data Rema rce(s) Supporting Document(s) NEGATIVE AB SCREEN (INDIRECT COOMB S)VIS eCW1 ([facility]) O POSITIVE BLOOD TYPE eCW1 ([facility]) ID Date Data Source WWBC OBS COMPLETE US 12/21/2019 03:14:36 AM EDT eCW1 ([facility]) Name Value Range Interpretation Code Description Data Rema rce(s) Supporting Document(s) eCW1 ([facility]) ID Date Data Source PAP REQUEST FOR SERVICE 12/13/2019 02:40:09 AM EDT eCW1 ([facility]) Name Value Range Interpretation Code Description Data Rema rce(s) Supporting Document(s) eCW1 ([facility]) ID Date Data Source HEPATITIS C ANTIBODY INDEX 12/13/2019 02:39:54 AM EDT eCW1 ( [facility]) Name Value Range Interpretation Code Description Data Rema rce(s) Supporting Document(s) 1.1 eCW1 ([facility]) ID Date Data Source HBSAG 12/09/2019 10:34:13 AM EDT eCW1 ([facility]) Name Value Range Interpretation Code Description Data Rema rce(s) Supporting Document(s) NEGATIVE eCW1 ([facility]) ID Date Data Source RUBELLA IMMUNE STATUS IgG 12/09/2019 10:33:58 AM EDT eCW1 ([facility]) Name Value Range Interpretation Code Description Data Rema rce(s) Supporting Document(s) IMMUNE eCW1 ([facility]) ID Date Data Source SYPHILIS ANTIBODY (RPR SCREEN) 12/09/2019 10:33:52 AM EDT eC W1 ([facility]) Name Value Range Interpretation Code Description Data Rema rce(s) Supporting Document(s) NONREACTIVE eCW1 ([facility]) ID Date Data Source [id number] 12/09/2019 10:19:01 AM EDT eCW1 ([facility]) Name Value Range Interpretation Code Description Data Rema rce(s) Supporting Document(s) eCW1 ([facility]) Procedure Social History Code Duration Value Status Description Data Source(s ) Smoking 11/17/2020 12:00:00 AM EDT Unknown if ever smoked comp leted Unknown if ever smoked [facility] ([facility]) Smoking 11/03/2020 12:00:00 AM EDT Former Smoker completed Former Smoker eCW1 ([facility]) Smoking 11/03/2020 12:00:00 AM EDT Former Smoker completed Former Smoker eCW1 ([facility]) Alcohol intake 10/13/2020 12:00:00 AM EDT Current drinker of al cohol (finding) completed Current drinker of alcohol (finding) [facility] Smoking 09/28/2020 12:00:00 AM EDT Former Smoker completed Former Smoker eCW1 ([facility]) Smoking 09/28/2020 12:00:00 AM EDT Former Smoker completed Former Smoker eCW1 ([facility]) Smoking 09/28/2020 12:00:00 AM EDT Former Smoker completed Former Smoker eCW1 ([facility]) Smoking 09/28/2020 12:00:00 AM EDT Former Smoker completed Former Smoker eCW1 ([facility]) Smoking 09/18/2020 12:00:00 AM EDT Unknown if ever smoked comp leted Unknown if ever smoked [facility] ([facility]) Smoking 08/17/2020 12:00:00 AM EDT Unknown if ever smoked comp leted Unknown if ever smoked [facility] ([facility]) Smoking 07/25/2020 12:00:00 AM EDT Unknown if ever smoked comp leted Unknown if ever smoked [facility] ([facility]) Smoking 07/07/2020 12:00:00 AM EDT Unknown if ever smoked comp leted Unknown if ever smoked [facility] ([facility]) Smoking 06/28/2020 12:00:00 AM EDT Former Smoker completed Former Smoker eCW1 ([facility]) Smoking 06/20/2020 12:00:00 AM EDT Unknown if ever smoked comp leted Unknown if ever smoked [facility] ([facility]) Smoking 06/01/2020 12:00:00 AM EDT Unknown if ever smoked comp leted Unknown if ever smoked [facility] ([facility]) Smoking 05/24/2020 12:00:00 AM EDT Unknown if ever smoked comp leted Unknown if ever smoked [facility] ([facility]) Smoking 05/09/2020 12:00:00 AM EST Unknown if ever smoked comp leted Unknown if ever smoked [facility] ([facility]) Smoking 04/27/2020 12:00:00 AM EST Former Smoker completed Former Smoker eCW1 ([facility]) Smoking 04/27/2020 12:00:00 AM EST Former Smoker completed Former Smoker eCW1 ([facility]) Smoking 04/27/2020 12:00:00 AM EST Unknown if ever smoked comp leted Unknown if ever smoked [facility] ([facility]) Smoking 04/25/2020 12:00:00 AM EST Unknown if ever smoked comp leted Unknown if ever smoked [facility] ([facility]) Smoking 04/11/2020 12:00:00 AM EST Unknown if ever smoked comp leted Unknown if ever smoked [facility] ([facility]) Smoking 04/02/2020 12:00:00 AM EST Former Smoker completed Former Smoker eCW1 ([facility]) Smoking 03/24/2020 12:00:00 AM EST Former Smoker completed Former Smoker eCW1 ([facility]) Smoking 03/24/2020 12:00:00 AM EST Former Smoker completed Former Smoker eCW1 ([facility]) Smoking 03/24/2020 12:00:00 AM EST Unknown if ever smoked comp leted Unknown if ever smoked [facility] ([facility]) Smoking 03/21/2020 12:00:00 AM EST Unknown if ever smoked comp leted Unknown if ever smoked [facility] ([facility]) Smoking 03/17/2020 12:00:00 AM EST Unknown if ever smoked comp leted Unknown if ever smoked [facility] ([facility]) Smoking 03/16/2020 12:00:00 AM EST Former Smoker completed Former Smoker eCW1 ([facility]) Smoking 03/06/2020 12:00:00 AM EST Former Smoker completed Former Smoker eCW1 ([facility]) Smoking 03/06/2020 12:00:00 AM EST Former Smoker completed Former Smoker eCW1 ([facility]) Smoking 03/06/2020 12:00:00 AM EST Unknown if ever smoked comp leted Unknown if ever smoked [facility] ([facility]) Smoking 02/21/2020 12:00:00 AM EST Former Smoker completed Former Smoker eCW1 ([facility]) Smoking 02/21/2020 12:00:00 AM EST Former Smoker completed Former Smoker eCW1 ([facility]) Smoking 02/21/2020 12:00:00 AM EST Former Smoker completed Former Smoker eCW1 ([facility]) Smoking 02/11/2020 12:00:00 AM EST Unknown if ever smoked comp leted Unknown if ever smoked [facility] ([facility]) Smoking 01/25/2020 12:00:00 AM EST Unknown if ever smoked comp leted Unknown if ever smoked [facility] ([facility]) Smoking 01/21/2020 12:00:00 AM EST Former Smoker completed Former Smoker eCW1 ([facility]) Smoking 01/21/2020 12:00:00 AM EST Former Smoker completed Former Smoker eCW1 ([facility]) Smoking 01/21/2020 12:00:00 AM EST Former Smoker completed Former Smoker eCW1 ([facility]) Smoking 01/10/2020 12:00:00 AM EST Unknown if ever smoked comp leted Unknown if ever smoked [facility] ([facility]) Smoking 12/30/2019 12:00:00 AM EDT Unknown if ever smoked comp leted Unknown if ever smoked [facility] ([facility]) Smoking 12/16/2019 12:00:00 AM EDT Unknown if ever smoked comp leted Unknown if ever smoked [facility] ([facility]) Smoking 12/07/2019 12:00:00 AM EDT Former Smoker completed Former Smoker eCW1 ([facility]) Smoking 12/02/2019 12:00:00 AM EDT Unknown if ever smoked comp leted Unknown if ever smoked [facility] ([facility]) Smoking 11/30/2019 12:00:00 AM EDT Unknown if ever smoked comp leted Unknown if ever smoked [facility] ([facility]) Tobacco use and exposure 11/11/2019 12:00:00 AM EDT Never used co mpleted Never used [facility] Smoking 11/11/2019 12:00:00 AM EDT Former smoker completed Former smoker [facility] Smoking 11/09/2019 12:00:00 AM EDT Unknown if ever smoked comp leted Unknown if ever smoked [facility] ([facility]) Smoking 11/04/2019 12:00:00 AM EDT Unknown if ever smoked comp leted Unknown if ever smoked [facility] ([facility]) Vital Signs ID Date Data Source UNK Name Value Range Interpretation Code Description Data Source(s) Body weight 305.2 [lb_av] 305.2 [lb_av] eCW1 ([facility]) Body weight 138.44 kg 138.44 kg W1 ([facility]) Body height 66 [in_i] 66 [in_i] eCW1 ([facility]) Body mass index (BMI) [Ratio] 49.26 kg/m2 49.26 kg/m2 W1 ([facility]) Heart rate 78 /min 78 /min eCW1 ([facility]) Respiratory rate 18 /min 18 /min eCW1 ([facility]) Body temperature 97.2 [degF] 97.2 [degF] eCW1 ( [facility]) Systolic blood pressure 138 mm[Hg] 138 mm[Hg] e CW1 ([facility]) Diastolic blood pressure 78 mm[Hg] 78 mm[Hg] eCW1 ([facility]) Body height 167.6 cm 167.6 cm [facility] Systolic blood pressure 118 mm[Hg] 118 mm[Hg] [facility] Diastolic blood pressure 90 mm[Hg] 90 mm[Hg] [facility] Heart rate 69 /min 69 /min [facility] Body weight 136.079 kg 136.079 kg [facility] Body mass index (BMI) [Ratio] 48.42 kg/m2 48.42 kg/m2 [facility] Oxygen saturation in Arterial blood by Pulse oximetry 97 % 97 % [facility] Body temperature 97.4 [degF] 97.4 [degF] eCW1 ( [facility]) Body weight 297.8 [lb_av] 297.8 [lb_av] eCW1 ([facility]) Body weight 135.1 kg 135.1 kg W1 ([facility]) Body mass index (BMI) [Ratio] 48.06 kg/m2 48.06 kg/m2 [facility] ([facility]) Heart rate 90 /min 90 /min eCW1 ([facility]) Respiratory rate 18 /min 18 /min eCW1 ([facility]) Body height 66 [in_i] 66 [in_i] eCW1 ([facility]) Systolic blood pressure 118 mm[Hg] 118 mm[Hg] e CW1 ([facility]) Diastolic blood pressure 72 mm[Hg] 72 mm[Hg] eCW1 ([facility]) Respiratory rate 18 /min 18 /min [facility] ( [facility]) Diastolic blood pressure 80 mm[Hg] 80 mm[Hg] [facility] ([facility]) Elevated Heart rate 75 /min 75 /min [facility] ([facility]) Oxygen saturation in Arterial blood by Pulse oximetry 96 % 96 % [facility] ([facility]) Body weight 299.00 [lb_av] 299.00 [lb_av] MEDEN T ([facility]) Systolic blood pressure 146 mm[Hg] 146 mm[Hg] M EDENT ([facility]) Elevated Body weight 135.626 kg 135.626 kg MEDENT ([facility]) Body temperature 96.8 [degF] 96.8 [degF] [facility] ([facility]) Body height 65 [in_i] 65 [in_i] [facility] ([facility]) 5'5" Body mass index (BMI) [Ratio] 49.8 kg/m2 49.8 k g/m2 [facility] ([facility]) Body surface area Derived from formula 2.35 m2 2.35 m2 [facility] ([facility]) Body weight 296 [lb_av] 296 [lb_av] eCW1 ([facility]) Body weight 134.26 kg 134.26 kg eCW1 ([facility]) Body height 66 [in_i] 66 [in_i] eCW1 ([facility]) Body mass index (BMI) [Ratio] 47.77 kg/m2 47.77 kg/m2 eCW1 ([facility]) Systolic blood pressure 130 mm[Hg] 130 mm[Hg] e CW1 ([facility]) Diastolic blood pressure 90 mm[Hg] 90 mm[Hg] eCW1 ([facility]) Body weight 132.451 kg 132.451 kg MEDENT ([facility]) Heart rate 69 /min 69 /min [facility] ([facility]) Body temperature 98.2 [degF] 98.2 [degF] [facility] ([facility]) Respiratory rate 18 /min 18 /min [facility] ( [facility]) Oxygen saturation in Arterial blood by Pulse oximetry 98 % 98 % [facility] ([facility]) Body weight 292.00 [lb_av] 292.00 [lb_av] MEDEN T ([facility]) Body height 65 [in_i] 65 [in_i] MEDENT ([facility]) 5'5" Body mass index (BMI) [Ratio] 48.6 kg/m2 48.6 k g/m2 [facility] ([facility]) Body surface area Derived from formula 2.32 m2 2.32 m2 [facility] ([facility]) Systolic blood pressure 140 mm[Hg] 140 mm[Hg] M EDENT ([facility]) Diastolic blood pressure 70 mm[Hg] 70 mm[Hg] [facility] ([facility]) Body height 0.00 in Normal (applies to non-numeric resu lts) 0.00 in [facility] ([facility]) Body weight Measured 0.00 lbs Normal (applies to n on-numeric results) 0.00 lbs [facility] ([facility]) Body mass index (BMI) [Ratio] 0.00 kg/m2 No rmal (applies to non-numeric results) 0.00 kg/m2 [facility] ([facility]) Systolic blood pressure 0 mm[Hg] Normal (applies t o non-numeric results) 0 mm[Hg] [facility] ([facility]) Diastolic blood pressure 0 mm[Hg] Normal (applies to non-numeric results) 0 mm[Hg] [facility] ([facility]) Body weight 277 [lb_av] 277 [lb_av] W1 ([facility]) Body height 66 [in_i] 66 [in_i] W1 ([facility]) Body mass index (BMI) [Ratio] 44.7 kg/m2 44.7 k g/m2 [facility] ([facility]) Systolic blood pressure 140 mm[Hg] 140 mm[Hg] e 1 ([facility]) Diastolic blood pressure 86 mm[Hg] 86 mm[Hg] W1 ([facility]) Systolic blood pressure 152 mm[Hg] 152 mm[Hg] e CW1 ([facility]) Diastolic blood pressure 84 mm[Hg] 84 mm[Hg] eCW1 ([facility]) Body weight 297.6 [lb_av] 297.6 [lb_av] eCW1 ([facility]) Body height 66 [in_i] 66 [in_i] eCW1 ([facility]) Body mass index (BMI) [Ratio] 48.034 kg/m2 48.0 34 kg/m2 [facility] ([facility]) Systolic blood pressure 132 mm[Hg] 132 mm[Hg] e CW1 ([facility]) Diastolic blood pressure 90 mm[Hg] 90 mm[Hg] eCW1 ([facility]) Body weight 294.2 [lb_av] 294.2 [lb_av] eCW1 ([facility]) Body weight 133.45 kg 133.45 kg eCW1 ([facility]) Body height 66 [in_i] 66 [in_i] eCW1 ([facility]) Body mass index (BMI) [Ratio] 47.485 kg/m2 47.4 85 kg/m2 eCW1 ([facility]) Systolic blood pressure 144 mm[Hg] 144 mm[Hg] e CW1 ([facility]) Diastolic blood pressure 90 mm[Hg] 90 mm[Hg] eCW1 ([facility]) Body height 0.00 in Normal (applies to non-numeric resu lts) 0.00 in [facility] ([facility]) Body weight Measured 0.00 lbs Normal (applies to n on-numeric results) 0.00 lbs [facility] ([facility]) Body mass index (BMI) [Ratio] 0.00 kg/m2 No rmal (applies to non-numeric results) 0.00 kg/m2 [facility] ([facility]) Systolic blood pressure 0 mm[Hg] Normal (applies t o non-numeric results) 0 mm[Hg] [facility] ([facility]) Diastolic blood pressure 0 mm[Hg] Normal (applies to non-numeric results) 0 mm[Hg] [facility] ([facility]) Body weight 292 [lb_av] 292 [lb_av] eCW1 ([facility]) Body height 66 [in_i] 66 [in_i] eCW1 ([facility]) Body mass index (BMI) [Ratio] 47.13 kg/m2 47.13 kg/m2 eCW1 ([facility]) Systolic blood pressure 128 mm[Hg] 128 mm[Hg] e CW1 ([facility]) Diastolic blood pressure 78 mm[Hg] 78 mm[Hg] eCW1 ([facility]) Body weight 290 [lb_av] 290 [lb_av] eCW1 ([facility]) Body weight 131.54 kg 131.54 kg eCW1 ([facility]) Body height 66 [in_i] 66 [in_i] eCW1 ([facility]) Body mass index (BMI) [Ratio] 46.807 kg/m2 46.8 07 kg/m2 eCW1 ([facility]) Systolic blood pressure 140 mm[Hg] 140 mm[Hg] e CW1 ([facility]) Diastolic blood pressure 98 mm[Hg] 98 mm[Hg] eCW1 ([facility]) Body weight 288.2 [lb_av] 288.2 [lb_av] eCW1 ([facility]) Body weight 130.73 kg 130.73 kg eCW1 ([facility]) Body height 66 [in_i] 66 [in_i] eCW1 ([facility]) Body mass index (BMI) [Ratio] 46.517 kg/m2 46.5 17 kg/m2 eCW1 ([facility]) Systolic blood pressure 118 mm[Hg] 118 mm[Hg] e CW1 ([facility]) Diastolic blood pressure 80 mm[Hg] 80 mm[Hg] eCW1 ([facility]) Body height 0.00 in Normal (applies to non-numeric resu lts) 0.00 in [facility] ([facility]) Body weight Measured 0.00 lbs Normal (applies to n on-numeric results) 0.00 lbs [facility] ([facility]) Body mass index (BMI) [Ratio] 0.00 kg/m2 No rmal (applies to non-numeric results) 0.00 kg/m2 [facility] ([facility]) Systolic blood pressure 0 mm[Hg] Normal (applies t o non-numeric results) 0 mm[Hg] [facility] ([facility]) Diastolic blood pressure 0 mm[Hg] Normal (applies to non-numeric results) 0 mm[Hg] [facility] ([facility]) Body weight 287 [lb_av] 287 [lb_av] eCW1 ([facility]) Body height 66 [in_i] 66 [in_i] eCW1 ([facility]) Body mass index (BMI) [Ratio] 46.323 kg/m2 46.3 23 kg/m2 eCW1 ([facility]) Systolic blood pressure 136 mm[Hg] 136 mm[Hg] e CW1 ([facility]) Diastolic blood pressure 76 mm[Hg] 76 mm[Hg] eCW1 ([facility]) Body weight 286 [lb_av] 286 [lb_av] eCW1 ([facility]) Body weight 129.73 kg 129.73 kg eCW1 ([facility]) Body height 66 [in_i] 66 [in_i] eCW1 ([facility]) Body mass index (BMI) [Ratio] 46.162 kg/m2 46.1 62 kg/m2 eCW1 ([facility]) Systolic blood pressure 124 mm[Hg] 124 mm[Hg] e CW1 ([facility]) Diastolic blood pressure 72 mm[Hg] 72 mm[Hg] eCW1 ([facility]) Body height 0.00 in Normal (applies to non-numeric resu lts) 0.00 in [facility] ([facility]) Body weight Measured 0.00 lbs Normal (applies to n on-numeric results) 0.00 lbs [facility] ([facility]) Body mass index (BMI) [Ratio] 0.00 kg/m2 No rmal (applies to non-numeric results) 0.00 kg/m2 [facility] ([facility]) Systolic blood pressure 0 mm[Hg] Normal (applies t o non-numeric results) 0 mm[Hg] [facility] ([facility]) Diastolic blood pressure 0 mm[Hg] Normal (applies to non-numeric results) 0 mm[Hg] [facility] ([facility]) Body weight 284.0 [lb_av] 284.0 [lb_av] eCW1 ([facility]) Body height 66 [in_i] 66 [in_i] eCW1 ([facility]) Body mass index (BMI) [Ratio] 45.839 kg/m2 45.8 39 kg/m2 eCW1 ([facility]) Systolic blood pressure 110 mm[Hg] 110 mm[Hg] e CW1 ([facility]) Diastolic blood pressure 76 mm[Hg] 76 mm[Hg] eCW1 ([facility]) Body height 0.00 in Normal (applies to non-numeric resu lts) 0.00 in [facility] ([facility]) Body weight Measured 0.00 lbs Normal (applies to n on-numeric results) 0.00 lbs [facility] ([facility]) Body mass index (BMI) [Ratio] 0.00 kg/m2 No rmal (applies to non-numeric results) 0.00 kg/m2 [facility] ([facility]) Systolic blood pressure 0 mm[Hg] Normal (applies t o non-numeric results) 0 mm[Hg] [facility] ([facility]) Diastolic blood pressure 0 mm[Hg] Normal (applies to non-numeric results) 0 mm[Hg] [facility] ([facility]) Body height 0.00 in Normal (applies to non-numeric resu lts) 0.00 in [facility] ([facility]) Body weight Measured 0.00 lbs Normal (applies to n on-numeric results) 0.00 lbs [facility] ([facility]) Body mass index (BMI) [Ratio] 0.00 kg/m2 No rmal (applies to non-numeric results) 0.00 kg/m2 [facility] ([facility]) Systolic blood pressure 0 mm[Hg] Normal (applies t o non-numeric results) 0 mm[Hg] [facility] ([facility]) Diastolic blood pressure 0 mm[Hg] Normal (applies to non-numeric results) 0 mm[Hg] [facility] ([facility]) ID Date Data Source [id number] 03/02/2020 10:20:45 AM [facility] Hospital Name Value Range Interpretation Code Description Data Source(s) TRANSFER FROM [facility] Patient Treatment Plan of Care Planned Activity Planned Date Details Description Data Source (s) Aimovig 140 MG/ML SOAJ 09/16/2020 12:00:00 AM EDT [facility] pregabalin 75 MG Oral Capsule 08/18/2020 12:00:00 AM EDT [facility] valacyclovir 500 MG Oral Tablet [Valtrex] 04/27/2020 12:00:00 AM ES T eCW1 ([facility]) valacyclovir 500 MG Oral Tablet [Valtrex] 04/27/2020 12:00:00 AM ES T eCW1 ([facility]) Sumatriptan 100 MG Oral Tablet 04/04/2020 12:00:00 AM EST eCW1 ([facility]) Metronidazole 500 MG Oral Tablet 03/10/2020 12:00:00 AM EST eCW1 ([facility]) Metronidazole 500 MG Oral Tablet 03/10/2020 12:00:00 AM EST eCW1 ([facility]) Acetaminophen 325 MG / butalbital 50 MG / Caffeine 40 MG Oral Capsule [[facility]] 02/28/2020 12:00:00 AM EST eCW1 ([facility]) Acetaminophen 325 MG / butalbital 50 MG / Caffeine 40 MG Oral Capsule [[facility]] 02/28/2020 12:00:00 AM EST eCW1 ([facility]) Amoxicillin 875 MG Oral Tablet 11/06/2019 12:00:00 AM EDT [facility] Aspirin 81 MG Delayed Release Oral Tablet [facility] Vit-Fe Fumarate-FA ( 1+1 PO) [facility]
--- NOTE | 2020-12-24 15:53 | REP ---
INDICATION: cough, recent RSV. COMPARISON: Portable chest, 12/18/2020. TECHNIQUE: Upright PA and lateral chest images were performed. FINDINGS: There is minimal interstitial thickening in the lower lung zones bilaterally, which could be residual peribronchial inflammation/infection. There is no lobar consolidation or pleural effusion. The heart borders and mediastinum are normal. The upper abdominal bowel gas pattern is normal. There are no bony abnormalities of the chest. IMPRESSION: Residual peribronchial thickening bilaterally consistent with residual inflammation/infection. <Electronically signed by Gustavo Quiñonez > 12/24/20 [id number]
[2020-12-24 16:31] LABS: VENOUS BASE EXCESS -0.7 (-2.0-2.0); VENOUS HCO3 22.9 MEQ/L (23.0-27.0); VENOUS O2 SATURATION 98.2 % (60.0-80.0); VENOUS PARTIAL PRESSURE CO2 34.9 mmHg (38.0-50.0); VENOUS PARTIAL PRESSURE O2 107.9 mmHg (30.0-50.0); VENOUS PH 7.435 UNITS (7.330-7.430); VENOUS STANDARD HCO3 23.9 MEQ/L
[2020-12-24 16:36] LABS: BASO % 0.3 % (0.0-1.0); HEMATOCRIT 43.6 % (36.0-47.0); HEMOGLOBIN 14.5 g/dl (12.0-15.5); LYMPH # 1.4 10^3/uL (1.5-5.0); LYMPH % 12.1 % (24.0-44.0); MEAN CORPUSCULAR HEMOGLOBIN 29.2 pg (27.0-33.0); MEAN CORPUSCULAR HGB CONC 33.3 g/dl (32.0-36.5); MEAN CORPUSCULAR VOLUME 87.9 fl (80.0-96.0); MONO # 0.2 10^3/uL (0.0-0.8); MONO % 1.9 % (2.0-8.0); NEUTROPHILS % 85.1 % (36.0-66.0); RED BLOOD COUNT 4.96 10^6/uL (4.00-5.40); WHITE BLOOD COUNT 11.7 10^3/uL (4.0-10.0)
[2020-12-24 17:12] LABS: ALBUMIN 3.2 GM/DL (3.2-5.2); ALT/SGPT 54 U/L (12-78); BILIRUBIN,DIRECT < 0.1 MG/DL (0.0-0.2); BILIRUBIN,TOTAL 0.4 MG/DL (0.2-1.0); LIPASE 102 U/L (73-393); TOTAL PROTEIN 7.2 GM/DL (6.4-8.2)
[2020-12-24] MEDS ORDERED: ISOVUE-370 76% 100ML VIAL As Ordered ONE (17:33)
[2020-12-24] MEDS: ALBUTEROL 90 MCG/ACT 8GM HFA INHALER INH SCH ×2 (17:37→17:39)
--- NOTE | 2020-12-24 18:36 | REPVR ---
PROCEDURE INFORMATION: Exam: CTA Chest With Contrast Exam date and time: 12/24/2020 5:42 PM Age: 40 years old Clinical indication: Pain; Cough and dyspnea; Other: Not specified; Additional info: Elev. D dimer, chest pain, cough, SOB TECHNIQUE: Imaging protocol: Computed tomographic angiography of the chest with contrast. 3D rendering (Not supervised by radiologist): MIP and/or 3D reconstructed images were created by the technologist. Radiation optimization: All CT scans at this facility use at least one of these dose optimization techniques: automated exposure control; mA and/or kV adjustment per patient size (includes targeted exams where dose is matched to clinical indication); or iterative reconstruction. Contrast material: ISOVUE 370; Contrast volume: 75 ml; Contrast route: INTRAVENOUS (IV); COMPARISON: CT ANGIO CHEST 10/22/2016 1:59 AM FINDINGS: Pulmonary arteries: Normal. No pulmonary emboli. Aorta: Unremarkable. No aortic aneurysm. No aortic dissection. Lungs: Unremarkable. No consolidation. No masses. Pleural spaces: Unremarkable. No pneumothorax. No pleural effusion. Heart: Unremarkable. No cardiomegaly. No pericardial effusion. Lymph nodes: Unremarkable. No enlarged lymph nodes. Bones/joints: Unremarkable. No acute fracture. Soft tissues: Unremarkable. IMPRESSION: No acute findings. Electronically signed by: Butch Maza On 12/24/2020 18:35:59 PM
[2020-12-24] MEDS ORDERED: AZITHROMYCIN 250MG TABLET PO ONE (18:55)
[2020-12-24 19:04] VITALS: BP 134/70
[2020-12-24] MEDS ORDERED: AZIT-12 PO (19:11)
== END 2020-12-24 19:31 | disposition home or self-care (01) ==
LOC: M ED 13:44
DX: R53.83 Other fatigue (principal); R05.9 Cough, unspecified; J45.909 Unspecified asthma, uncomplicated; F25.9 Schizoaffective disorder, unspecified; Z79.52 Long term (current) use of systemic steroids; Z79.899 Other long term (current) drug therapy; Z91.013 Allergy to seafood; Z88.8 Allergy status to other drugs, medicaments and biological substances; Z88.5 Allergy status to narcotic agent; Z91.048 Other nonmedicinal substance allergy status; Z86.19 Personal history of other infectious and parasitic diseases
CPT/HCPCS: 71046; 71275; 80047; 80076; 82803; 83690; 85025; 85379; 87798; 99284; J2405; Q9967

== ENCOUNTER 2021-01-12 00:57 | Emergency (ER) | payer OTHER ==
[2021-01-12 00:57] VITALS: BP 165/84
[~2021-01-12 00:57] MED LIST changes: +AZIT-12 PO
[2021-01-12] MEDS ORDERED: FLUO10CA16 (01:07)
--- OUTSIDE RECORDS SUMMARY | 2021-01-12 02:14 | CCD | Continuity of Care Document ---
Author Author Leanna CAMARGO M.D. Organization Unknown Address [address] [place] [address] Phone [phone] Care Team Providers Care Correctional Captain Name Role Phone Trav Camargo M.D. AUTM [phone] [facility] Orthopedics AUTM [phone] [facility] AUTM [phone] Debra Canales SOLAR SALES REPRESENTATIVE AND ASSESSOR AUTM [phone] [facility] Rheumatology AUTM [phone] Tim Guthrie AUTM Unavailable [facility] Rheumatology AUTM [phone] [facility] Physical Therapy AUTM [phone] Kyaw Contreras MD AUTM [facility] Audiology & Physical Therapy AUTM [phone] [facility] Cardiology- [place] [facility] AUTM [phone] Problems Active Problems Provider Date Cluster B personality disorder Mercedes Martinez NP Onset: Mild mental handicap Mercedes Martinez NP Onset: 07/31/2016 Stimulant dependence Mercedes Martinez NP Onset: 07/31/2016 Vitamin D deficiency Trav Camargo MD Onset: 04/17/2017 Cannabis abuse, uncomplicated [place], CUT TOBACCO BULKER Onset: Alcohol abuse, uncomplicated [place], CUT TOBACCO BULKER Onset: Social History Type Date Description Comments [...] 40 Retana Unable to assess criticality 07/18/2016 [place] Dye Unable to assess criticality 07/18/2016 Gabapentin Unable to assess criticality Urticaria | Moderate pt s tates 06/05/2017 Medications Active Medications SIG Qnty Indications Ordering Provide r Date Valacyclovir HCL 1gm Tablets 1 tab by mouth q8 hours 7 days 21tabs B02.9 Trav Camargo MD 2020 Vitamin D 1000Unit Tablets 1 tablet by [...] One Tablet By Mouth Twice Daily Unknown Guaifenesin/Pseudoephedrine Hydrochlorid e 60-600mg Tablets ER 12HR Take One Tablet By Mouth Twice Daily Unknown Albuterol Sulfate (2 .5mg/3ML) 0.083% Nebulizer Inhale Contents Of One Vial via nebulize r Every 4 To 6 Hours as Needed For Bronc Unknown Benzonatate 100mg Capsules Take One Capsule By Mouth Three Times Daily For Cough Bob gregoria Irish Medications Administered in Office Medication SIG Qnty Indications Ordering Provider Date Ketorolac (Toradol) Inj 30MG/ML Injection Trav Camargo MD 06/16/19 21 Immunizations CPT Code Status Date Vaccine Lot # [id number] Given 12/03/2016 Influenza (>35 months) P.F. Vaccine [...] Date Facility Test Result H/L Range Note Venous Blood Gas 12/24/2020 [facility] Venous PH 7.435 units High 7.330-7.430 Venous Partial Pressure Co2 34.9 mmHg Low 38.0-50.0 Venous Partial Pressure O2 107.9 mmHg High 30.0-50.0 Venous Total Co2 24.0 mEq/L Normal 24.0-28.0 Venous Hco3 22.9 mEq/L Low 23.0-27.0 Venous Base Excess -0.7 Normal -2.0-2.0 Venous Standard Hco3 23.9 mEq/L Normal Venous O2 Saturation 98.2 % High 60.0-80.0 Liver Profile 12/24/2020 [facility] Ast/Sgot 23 U/L Normal 7-37 Alt/SGPT 54 U/L Normal 12-78 Alkaline Phosphatase 77 U/L Normal 45-117 Bilirubin,Total 0.4 mg/dL Normal 0.2-1.0 Bilirubin,Direct < 0.1 mg/dL Normal 0.0-0.2 Total Protein 7.2 GM/DL Normal 6.4-8.2 Albumin 3.2 GM/DL Normal 3.2-5.2 Albumin/Globulin Ratio 0.8 Low 1.2-2.2 Laboratory test finding 12/24/2020 [facility] Lipase 102 U/L Normal 73-393 1 Laboratory test finding 12/24/2020 [facility] D-Dimer Quant 552.50 ng/ml High <500 CBC With Differential 12/24/2020 [facility] White Blood Count 11.7 10 High 4.0-10.0 Red Blood Count 4.96 10 Normal 4.00-5.40 Hemoglobin 14.5 g/dL Normal 12.0-15.5 Hematocrit 43.6 % Normal 36.0-47.0 Mean Corpuscular Volume 87.9 fl Normal 80.0-96.0 Mean Corpuscular Hemoglobin 29.2 pg Normal 27.0-33.0 Mean Corpuscular HGB Conc 33.3 g/dL Normal 32.0-36.5 Red Cell Distribution Width 14.1 % Normal 11.5-14.5 Platelet Count, Automated TNP 10 Normal 150-450 2 Neutrophils % 85.1 % High 36.0-66.0 Lymph % 12.1 % Low 24.0-44.0 [place] % 1.9 % Low 2.0-8.0 Eos % 0.0 % Normal 0.0-3.0 Baso % 0.3 % Normal 0.0-1.0 Immature Granulocyte % 0.6 % Normal 0-3.0 Nucleated Red Blood Cell % 0.0 % Normal 0-0 Neutrophils # 10.0 10 High 1.5-8.5 Lymph # 1.4 10 Low 1.5-5.0 [place] # 0.2 10 Normal 0.0-0.8 Eos # 0.0 10 Normal 0.0-0.5 Baso # 0.0 10 Normal 0.0-0.2 Respiratory Panel 12/24/2020 [facility] Respiratory Panel This respiratory <SEE NOTE> 3 Istat Chem8+ Panel 12/24/2020 [facility] iSTAT HCT 45.0 % Normal 38.0-51.0 iSTAT Glucose 151 mg/dL High 70-105 iSTAT Sodium 134 mEq/L Low 136-145 iSTAT Potassium 5.5 mEq/L High 3.5-5.1 iSTAT CA++ 4.5 mg/dL Normal 4.5-5.3 iSTAT Chloride 105 mEq/L Normal 98-109 iSTAT Co2 26.0 MM/L Normal 23.0-27.0 iSTAT BUN 26 mg/dL Normal 8-26 iSTAT Creatinine 0.7 mg/dL Normal 0.6-1.3 Istat Chem8+ Panel 12/18/2020 [facility] iSTAT HCT 47.0 % Normal 38.0-51.0 iSTAT Glucose 111 mg/dL High 70-105 iSTAT Sodium 139 mEq/L Normal 136-145 iSTAT Potassium 4.1 mEq/L Normal 3.5-5.1 iSTAT CA++ 4.5 mg/dL Normal 4.5-5.3 iSTAT Chloride 103 mEq/L Normal 98-109 iSTAT Co2 26.0 MM/L Normal 23.0-27.0 iSTAT BUN 10 mg/dL Normal 8-26 iSTAT Creatinine 0.8 mg/dL Normal 0.6-1.3 Respiratory Panel 12/18/2020 [facility] Respiratory Panel This respiratory <SEE NOTE> 4 CBC With Differential 12/18/2020 [facility] White Blood Count 8.9 10 Normal 4.0-10.0 Red Blood Count 5.26 10 Normal 4.00-5.40 Hemoglobin 15.3 g/dL Normal 12.0-15.5 Hematocrit 45.8 % Normal 36.0-47.0 Mean Corpuscular Volume 87.1 fl Normal 80.0-96.0 Mean Corpuscular Hemoglobin 29.1 pg Normal 27.0-33.0 Mean Corpuscular HGB Conc 33.4 g/dL Normal 32.0-36.5 Red Cell Distribution Width 14.1 % Normal 11.5-14.5 Platelet Count, Automated TNP 10 Normal 150-450 5 Neutrophils % 75.9 % High 36.0-66.0 Lymph % 16.4 % Low 24.0-44.0 [place] % 3.5 % Normal 2.0-8.0 Eos % 3.4 % High 0.0-3.0 Baso % 0.6 % Normal 0.0-1.0 Immature Granulocyte % 0.2 % Normal 0-3.0 Nucleated Red Blood Cell % 0.0 % Normal 0-0 Neutrophils # 6.7 10 Normal 1.5-8.5 Lymph # 1.5 10 Normal 1.5-5.0 [place] # 0.3 10 Normal 0.0-0.8 Eos # 0.3 10 Normal 0.0-0.5 Baso # 0.1 10 Normal 0.0-0.2 Cardiac Marker Panel 12/04/2020 [facility] CPK Creatine Phosphokinase 72 U/L Normal 26-192 CK-MB Value Mass 1.5 NG/ML Normal <3.6 MB/CK Relative Index 2.08 Normal < Or =4 6 Troponin I < 0.02 NG/ML Normal < 0.10 7 Respiratory Panel 12/04/2020 [facility] Respiratory Panel This respiratory <SEE NOTE> 8 Comprehensive Metabolic Profil 12/04/2020 [facility] Glucose, Fasting 104 mg/dL High 70-100 Blood Urea Nitrogen 10 mg/dL Normal 7-18 Creatinine For GFR 0.91 mg/dL Normal 0.55-1.30 Glomerular Filtration Rate > 60.0 Normal >58 9 Sodium Level 142 mEq/L Normal 136-145 Potassium [...] Normal 3.2-5.2 Albumin/Globulin Ratio 0.9 Low 1.2-2.2 CBC With Differential 12/04/2020 [facility] White Blood Count 9.7 10 Normal [...] 36.0-66.0 Lymph % 11.0 % Low 24.0-44.0 [place] % 4.8 % Normal 2.0-8.0 Eos % 1.2 % Normal 0.0-3.0 Baso % 0.7 % Normal 0.0-1.0 Immature Granulocyte % 0.4 % Normal 0-3.0 Nucleated Red Blood Cell % 0.0 % Normal 0-0 Neutrophils # 7.9 10 Normal 1.5-8.5 Lymph # 1.1 10 Low 1.5-5.0 [place] # 0.5 10 Normal 0.0-0.8 Eos # 0.1 10 Normal 0.0-0.5 Baso # 0.1 10 Normal 0.0-0.2 Beta-2 Glycoprotein 1 Loni Letha 10/21/2020 [facility] Beta-2 Glycoprotein I Loni Igg <9 Normal 0-20 10 Beta-2 Glycoprotein I Loni Iga <9 Normal 0-25 11 Beta-2 Glycoprotein I Loni Igm 10 Normal 0-32 12 Laboratory test finding 10/21/2020 [facility] Anti-Histone Antibodies 3.1 units High 0.0-0.9 13 Anti DS-Dna AB By Crithidia Negative Normal Negative 14 Renée Titer & Pattern Negative Normal . 15 Anti Scleroderma Antibodies <0.2 AI Normal 0.0-0.9 16 Anti-Cardiolipin Antibodies 10/21/2020 [facility] Cardiolipin Iga Antibody <9 APLU/mL Normal 0-11 17 Cardiolipin Igg Antibody 10 GPLU/mL Normal 0-14 18 Cardiolipin Igm Antibody 9 MPLU/mL Normal 0-12 19 Anti-Sjogrens A&B Antibodies 10/21/2020 [facility] C Ssa Sjogrens A <0.2 AI Normal 0.0-0.9 SSB Sjogrens B <0.2 AI Normal 0.0-0.9 Laboratory test finding 10/21/2020 [facility] Anti Centromere Antibody <0.2 AI Normal 0.0-0.9 20 Anti-U1 [place] AB <20 units Normal <20 21 Anti Camargo(Sm) AB <20 units Normal <20 22 Laboratory test finding 10/02/2020 [facility] Phosphorus Level 3.6 mg/dL Normal 2.5-4.9 23 CPK Creatine Phosphokinase 43 U/L Normal 26-192 2 4 Magnesium Level 2.1 mg/dL Normal 1.8-2.4 25 Iron (Fe) 50 g/dL Normal 50-170 26 Complement C3 148 mg/dL Normal 90-180 27 Complement C4 23 mg/dL Normal 10-40 28 Thyroid Stimulating Hormone 0.828 uIU/ML Normal 0.358-3.740 29 Vitamin B12 Level 710 pg/mL Normal 247-911 30 Total 25(Oh) Vitamin D 24.7 NG/ML Low 30.0-100.0 31 C Reactive Protein Quantitativ 1.67 mg/dL High 0.00-0.30 32 CBC With Differential 10/02/2020 [facility] White Blood Count 7.8 10 Normal [...] 36.0-66.0 Lymph % 27.9 % Normal 24.0-44.0 [place] % 6.4 % Normal 2.0-8.0 Eos % 5.6 % High 0.0-3.0 Baso % 0.4 % Normal 0.0-1.0 Immature Granulocyte % 0.3 % Normal 0-3.0 Nucleated Red Blood Cell % 0.0 % Normal 0-0 Neutrophils # 4.6 10 Normal 1.5-8.5 Lymph # 2.2 10 Normal 1.5-5.0 [place] # 0.5 10 Normal 0.0-0.8 Eos # 0.4 10 Normal 0.0-0.5 Baso # 0.0 10 Normal 0.0-0.2 Laboratory test finding 10/02/2020 [facility] Erythrocyte Sedimentation Rate 45 mm/hr High 0-20 Complement Total (CH50) > 60 U/mL Normal >41 33 Lupus Type Anticoagulant Scree 10/02/2020 [facility] PTT Lupus Type Anticoag Screen 1.4 High 0-1.2 34 Laboratory test finding 10/02/2020 [facility] Lupus Confirm Stago 1.27 High 0.00-1.20 35 Lupus Screen Confirmation 10/02/2020 [facility] Hexagonal Phase Phospholipid 0 sec Normal 0-11 Comment For Hexagonal Confirm1 (SEE NOTE) Normal . 36 1 note:<nlbl:demographic_chang ed> 2 Small plt clumps seen on sli de 3 This respiratory PCR panel d etects Influenza A H1, H3 and 2009 H1 viruses, Influenza B virus, Resp iratory Syncytial Virus, Human metapneumovirus, Parainfluenza virus 1, 2, 3 and 4, Adenovirus, Rhinovirus/Enterovirus, Coronavirus HKU1, NL63, OC43, 229E and SARS-CoV-2 (COVID 19), Bordetella pertussis, Bordetella parapertussis, Mycoplasma pneumoniae and Chlamydia pneumoniae. NEGATIVE by MULTIPLEXED NUCLEIC ACID PCR SARS-CoV-2 (COVID 19) NEGATIVE - SARS-CoV-2 (COVID19) 4 This respiratory PCR panel d etects [...] infants. ORGANISM 1: RESPIRATORY SYNCYTIAL VIRUS 5 Platelet count invalid due t o platelet clumping. Suggest ordering platelet blue test to confirm clumping is not due to EDTA. 6 DIAGNOSIS CRITERIA MMB ng/ml Relative Index (RI) NON-AMI < or = 5 N/A RAYA ZONE > 5 < or = 4 AMI > 5 > 4 7 Troponin I Reference Interva l for Siemens Medisas LOCI: 99th Percentile= 0.00-0.045 ng/ml Risk Stratification: <= 0.10 ng/ml Decreased Risk for Adverse Clinical Events. 0.10-1.50 ng/ml Increased Risk for Adv erse Clinical Events. Evaluation of additional criterion and/or repeat testing in 2-6 hours is suggested to rule out myocardial damage. >= 1.50 ng/ml Indicative of Myocardial Injury. 8 This respiratory PCR panel d etects Influenza [...] risk infants. ORGANISM 1: RESPIRATORY SYNCYTIAL VIRUS 9 Units are mL/min/1.73 m2 Chronic Kidney Disease Staging per NKF: Stage I & II GFR >=60 Normal to Mildly Decreased Stage III GFR 30-59 Moderately Decreased Stage IV GFR 15-29 Severely Decreased Stage V GFR <15 Very Little GFR Left ESRD GFR <15 on LEGAL SUPPORT ANALYST 10 Result Units: GPI IgG units . The reference interval reflects a 3SD or 99th percentile interval, which is thought to represent a potentially clinically significant result in accordance with the International Consensus Statement on the classification criteria for definitive antiphospholipid syndrome (APS). J Thromb Haem 2006;4:295-306. 11 Result Units: GPI IgA units . The reference interval reflects a 3SD or 99th percentile interval, which is thought to represent a potentially clinically significant result in accordance with the International Consensus Statement on the classification criteria for definitive antiphospholipid syndrome (APS). J Thromb Haem 2006;4:295-306. 12 Result Units: GPI IgM units . The reference interval reflects a 3SD or 99th percentile interval, which is thought to represent a potentially clinically significant result in accordance with the International Consensus Statement on the classification criteria for definitive antiphospholipid syndrome (APS). J Thromb Haem 2006;4:295-306. 13 Negative <1.0 Weak Positive 1.0 - 1.5 Moderate Positive 1.6 - 2.5 Strong Positive >2.5 14 Specimen Comment: Test(s) 52 4258-Gjyp-Q7 [employer] [employer] Ab (RDL) Specimen Comment: was developed and its performance characteristics Specimen Comment: determined by [facility]. It has not been cleared or approved Specimen Comment: by the Food and Drug Administration. 15 Negative <1:80 Borderline 1:80 Positive >1:80 ICAP nomenclature: AC-0 For more information about Hep-2 cell patterns use ANApatterns.org, the official website for the International Consensus on Antinuclear Antibody (RENÉE) Patterns (ICAP). Performed at: - [facility] [address] [id number] Roller Coaster Designer: Pretty Swain MD, Phone: [phone] Performed at: - [facility] [id number] Roller Coaster Designer: Prabhakar Hudson MD, Phone: [phone] Performed at: [facility] [address] [place] [id number] Roller Coaster Designer: Bora Wu MD, Phone: [phone] Specimen Comment: Test(s) 52 8207-Qbwx-R7 [place] Ab (RDL) Specimen Comment: was developed and its performance characteristics Specimen Comment: determined by [facility]. It has not been cleared or approved Specimen Comment: by the Food and Drug Administration. 17 Negative: <12 Indeterminate: 12 - 20 Low-Med Positive: >20 - 80 High Positive: >80 18 Negative: <15 Indeterminate: 15 - 20 Low-Med Positive: >20 - 80 High Positive: >80 19 Negative: <13 Indeterminate: 13 - 20 Low-Med Positive: >20 - 80 High Positive: >80 20 Specimen Comment: Test(s) 52 6564-Cegq-T4 [employer] [employer] Ab (RDL) Specimen Comment: was developed and its performance characteristics Specimen Comment: determined by [facility]. It has not been cleared or approved Specimen Comment: by the Food and Drug Administration. 21 Negative: <20 Weak Positive: 20 - 39 Moderate Positive: 40 - 80 Strong Positive: >80 22 Negative: <20 Weak Positive: 20 - 39 Moderate Positive: 40 - 80 Strong Positive: >80 23 note:<nlbl:demographic_chang ed> 24 note:<nlbl:demographic_chang ed> 25 note:<nlbl:demographic_chang ed> 26 note:<nlbl:demographic_chang ed> 27 note:<nlbl:demographic_chang ed> 28 note:<nlbl:demographic_chang ed> 29 note:<nlbl:demographic_chang ed> 30 VITAMIN B12 NORMAL RANGE NORMAL 247 - 911 PG/ML INDETERMINATE 211 - 246 PG/ML DEFICIENT LESS THAN 211 PG/ML 31 note:<nlbl:demographic_chang ed> 32 note:<nlbl:demographic_chang ed> 33 Age Male Female 1 - 30 days [...] out of range values. Performed at: - [facility] [id number] Roller Coaster Designer: Pretty Swain MD, Phone: [phone] 34 RESULT IS 1.2 OR GREATER, FURTHER TESTING [...] coagulation factor deficiency or a specific inhibitor. 35 NORMALIZED RATIO IS EQUAL TO OR GREATER THAN 1.20 LA IS PRESENT. SPECIMEN WILL BE SENT TO [facility] [address] [place]. [address] [facility]. 36 . Results do not indicate the presence of a Lupus Anticoagulant: abnormal high screening results (PTT-LA, dRVVT, mixing studies), may be due to medication (heparin, warfarin, aspirin), Factor inhibitors, anticardiolipin antibodies, or poor specimen integrity. Performed at: [address] [id number] Roller Coaster Designer: Prabhakar Hudson MD, Phone: [phone] Procedures Date Code Description Status 12/26/2020 12830 Office/Outpatient Established Lo w [facility] 20-29 Min Completed 06/29/2020 44323 Office/Outpatient Established Lo w [facility] 20-29 Min Completed Medical Devices Description No Information Available Encounters Type Date Location Provider Dx Diagnosis Office Visit 12/26/2020 2:00p Family Practice Trav Camargo MD B0 2.9 Zoster without complications Assessments Date Code Description Provider 12/26/2020 B02.9 Zoster without complications Neo Camargo MD 06/29/2020 R76.0 Raised antibody titer Trav Camargo MD 06/29/2020 M51.36 Other intervertebral disc degene ration, lumbar region Trav Camargo MD 06/29/2020 R55 Syncope and collapse Trav manuel MD Plan of Treatment Future Appointment(s):* 01/01/2021 3:00 pm - Trav Camargo MD at [facility] 12/26/2020 - Trav Camargo MD* B02.9 Zoster without complications* New Medication:* Valacyclovir HCL 1 gm - 1 tab by mouth q8 hours 7 days * Comments:* Pt was started on Valacyclovir and advised to continue with symptomatic care. If no improvement then either go to ER or RTC for the evaluation. Functional Status Functional Condition Comment Date Status Hearing Aid in both ears Active Mental Status Description No Information Available Referrals Refer to Dr Reason for Referral Status Appt Date [facility] Rheumatology 39 y/o F with hx of elevated RENÉE, pls eval and treat. 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 Could be psychiatric related. Rule out cardiac etiology. Closed 10/12/[address] [facility] [address] [place] [address] [phone]
--- OUTSIDE RECORDS SUMMARY | 2021-01-12 02:14 | CCD ---
Author Author Leanna Chou Organization Unknown Address [address] [address] Phone Care Team Providers Care Porcelain Slusher Name Role Phone Chou, Lisa PCP Allergies, Adverse Reactions, Alerts Concept Allergy Name Reaction Severity Onset Date Status Documentation Date Phone Number Npid Taxonomy Code Taxonomy Desc Author Last Name Author Fi rst Name Concept Type 314481 nkda Active 02/09/2018 RXNORM Problem List Concept Problem Description Status Start Date Created Date Resolv ed Date Snomed Code F43.12 Post-traumatic stress disorder, chronic Active 10/15/2017 10/15/2017 F41.1 Generalized Anxiety Disorder Active 10/15/2017 10/15/2017 F14.20 Stimulant Use Disorder. Severe: Cocaine Active 10/15/2017 10/15/2017 Medications No Data in Section Social History Social History Element Description Concept Effective Date Smoking Status Unknown if ever smoked [id number] Immunizations No Data in Section Vital Signs No Data in Section Procedures Date Concept Id Description Targeted Site Concept Targeted Site Concept Type 01/09/2021 31993 Extended Individual Psychotherapy - 45 min CPT Patient has no history of implantable de vices Encounters Encounter Start Date End Date Encounter Type Description Diagnosis Di agnosis Desc Location Author First Name Author Last Name Npid Taxonomy Cod e Taxonomy Desc Phone Number Location Addr1 Location Addr2 Location [facility] Location [facility] Location Zip [id number] 01/09/2021 01/09/2021 41088 Extended Individual Psych otherapy - 45 min F43.12 Post-traumatic stress disorder, chronic [facility] Effie Barnett [phone] [id number] Mental Health [phone] [address] [address] Plan of Treatment No Data in Section Lab Results No Data in Section Instructions No Data in Section Insurance Providers Insurance Id Policy Effective Date Policy Thru Date Company N elena [id number] [address]
--- OUTSIDE RECORDS SUMMARY | 2021-01-12 02:14 | CCD | Continuity of Care Document ---
Author Author Leanna CAMARGO M.D. Organization Unknown Address [address] [place] [id number] Phone [phone] Care Team Providers Care Steward/Stewardess Third Name Role Phone Trav Camargo M.D. AUTM [phone] [facility] Orthopedics AUTM [phone] [place] [facility] AUTM [phone] Debra Canales POLICE PILOT AUTM [phone] [facility] Rheumatology AUTM [phone] Tim Guthrie AUTM Unavailable [facility] Rheumatology AUTM [phone] [facility] Physical Therapy AUTM [phone] Kyaw Contreras MD AUTM [phone] [facility] Audiology & Physical Therapy AUTM [phone] [facility] Cardiology- [place] Office AUTM Problems Active Problems Provider Date Cluster B personality disorder Mercedes Martinez NP Onset: Mild mental handicap Mercedes Martinez NP Onset: 07/31/2016 Stimulant dependence Mercedes Martinez NP Onset: 07/31/2016 Vitamin D deficiency Trav Camargo MD Onset: 04/17/2017 Cannabis abuse, uncomplicated Kendell Divide, PRIMARY CARE NURSE Onset: Alcohol abuse, uncomplicated Kendell Divide, PRIMARY CARE NURSE Onset: Social History Type Date Description Comments [...] 40 Retana Unable to assess criticality 07/18/2016 [place] Dye Unable to assess criticality 07/18/2016 Gabapentin [...] CPT Code Status Date Vaccine Lot # [id number] Given 12/03/2016 Influenza (>35 months) P.F. Vaccine [...] H/L Range Note Venous Blood Gas 12/24/2020 [facility] Venous PH 7.435 units High 7.330-7.430 Venous Partial Pressure Co2 34.9 mmHg Low 38.0-50.0 Venous Partial Pressure O2 107.9 mmHg High 30.0-50.0 Venous Total Co2 24.0 mEq/L Normal 24.0-28.0 Venous Hco3 22.9 mEq/L Low 23.0-27.0 Venous Base Excess -0.7 Normal -2.0-2.0 Venous Standard Hco3 23.9 mEq/L Normal Venous O2 Saturation 98.2 % High 60.0-80.0 Liver Profile 12/24/2020 [facility] Ast/Sgot 23 U/L Normal 7-37 Alt/SGPT 54 U/L Normal 12-78 Alkaline Phosphatase 77 U/L Normal 45-117 Bilirubin,Total 0.4 mg/dL Normal 0.2-1.0 Bilirubin,Direct < 0.1 mg/dL Normal 0.0-0.2 Total Protein 7.2 GM/DL Normal 6.4-8.2 Albumin 3.2 GM/DL Normal 3.2-5.2 Albumin/Globulin Ratio 0.8 Low 1.2-2.2 Laboratory test finding 12/24/2020 [facility] Lipase 102 U/L Normal 73-393 1 Laboratory test finding 12/24/2020 [facility] D-Dimer Quant 552.50 ng/ml High <500 CBC With Differential 12/24/2020 [facility] White Blood Count 11.7 10 High 4.0-10.0 [...] 36.0-66.0 Lymph % 12.1 % Low 24.0-44.0 Gila % 1.9 % Low 2.0-8.0 Eos % 0.0 % Normal 0.0-3.0 Baso % 0.3 % Normal 0.0-1.0 Immature Granulocyte % 0.6 % Normal 0-3.0 Nucleated Red Blood Cell % 0.0 % Normal 0-0 Neutrophils # 10.0 10 High 1.5-8.5 Lymph # 1.4 10 Low 1.5-5.0 Gila # 0.2 10 Normal 0.0-0.8 Eos # 0.0 10 Normal 0.0-0.5 Baso # 0.0 10 Normal 0.0-0.2 Respiratory Panel 12/24/2020 [facility] Respiratory Panel This respiratory <SEE NOTE> 3 Istat Chem8+ Panel 12/24/2020 [facility] iSTAT HCT 45.0 % Normal 38.0-51.0 iSTAT Glucose 151 mg/dL High 70-105 iSTAT Sodium 134 mEq/L Low 136-145 iSTAT Potassium 5.5 mEq/L High 3.5-5.1 iSTAT CA++ 4.5 mg/dL Normal 4.5-5.3 iSTAT Chloride 105 mEq/L Normal 98-109 iSTAT Co2 26.0 MM/L Normal 23.0-27.0 iSTAT BUN 26 mg/dL Normal 8-26 iSTAT Creatinine 0.7 mg/dL Normal 0.6-1.3 Istat Chem8+ Panel 12/18/2020 [facility] iSTAT HCT 47.0 % Normal 38.0-51.0 iSTAT Glucose 111 mg/dL High 70-105 iSTAT Sodium 139 mEq/L Normal 136-145 iSTAT Potassium 4.1 mEq/L Normal 3.5-5.1 iSTAT CA++ 4.5 mg/dL Normal 4.5-5.3 iSTAT Chloride 103 mEq/L Normal 98-109 iSTAT Co2 26.0 MM/L Normal 23.0-27.0 iSTAT BUN 10 mg/dL Normal 8-26 iSTAT Creatinine 0.8 mg/dL Normal 0.6-1.3 Respiratory Panel 12/18/2020 [facility] Respiratory Panel This respiratory <SEE NOTE> 4 CBC With Differential 12/18/2020 [facility] White Blood Count 8.9 10 Normal 4.0-10.0 [...] 36.0-66.0 Lymph % 16.4 % Low 24.0-44.0 Gila % 3.5 % Normal 2.0-8.0 Eos % 3.4 % High 0.0-3.0 Baso % 0.6 % Normal 0.0-1.0 Immature Granulocyte % 0.2 % Normal 0-3.0 Nucleated Red Blood Cell % 0.0 % Normal 0-0 Neutrophils # 6.7 10 Normal 1.5-8.5 Lymph # 1.5 10 Normal 1.5-5.0 Gila # 0.3 10 Normal 0.0-0.8 Eos # 0.3 10 Normal 0.0-0.5 Baso # 0.1 10 Normal 0.0-0.2 Cardiac Marker Panel 12/04/2020 [facility] CPK Creatine Phosphokinase 72 U/L Normal 26-192 CK-MB Value Mass 1.5 NG/ML Normal <3.6 MB/CK Relative Index 2.08 Normal < Or =4 6 Troponin I < 0.02 NG/ML Normal < 0.10 7 Respiratory Panel 12/04/2020 [facility] Respiratory Panel This respiratory <SEE NOTE> 8 Comprehensive Metabolic Profil 12/04/2020 [facility] Glucose, Fasting 104 mg/dL High 70-100 Blood [...] 0.9 Low 1.2-2.2 CBC With Differential 12/04/2020 [facility] White Blood Count 9.7 10 Normal 4.0-10.0 [...] 36.0-66.0 Lymph % 11.0 % Low 24.0-44.0 Gila % 4.8 % Normal 2.0-8.0 Eos % 1.2 % Normal 0.0-3.0 Baso % 0.7 % Normal 0.0-1.0 Immature Granulocyte % 0.4 % Normal 0-3.0 Nucleated Red Blood Cell % 0.0 % Normal 0-0 Neutrophils # 7.9 10 Normal 1.5-8.5 Lymph # 1.1 10 Low 1.5-5.0 Gila # 0.5 10 Normal 0.0-0.8 Eos # 0.1 10 Normal 0.0-0.5 Baso # 0.1 10 Normal 0.0-0.2 Beta-2 Glycoprotein 1 Loni Letha 10/21/2020 [facility] Beta-2 Glycoprotein I Loni Igg <9 Normal 0-20 10 Beta-2 Glycoprotein I Loni Iga <9 Normal 0-25 11 Beta-2 Glycoprotein I Loni Igm 10 Normal 0-32 12 Laboratory test finding 10/21/2020 [facility] Anti-Histone Antibodies 3.1 units High 0.0-0.9 13 Anti DS-Dna AB By Crithidia Negative Normal Negative 14 Renée Titer & Pattern Negative Normal . 15 Anti Scleroderma Antibodies <0.2 AI Normal 0.0-0.9 16 Anti-Cardiolipin Antibodies 10/21/2020 [facility] Cardiolipin Iga Antibody <9 APLU/mL Normal 0-11 17 Cardiolipin Igg Antibody 10 GPLU/mL Normal 0-14 18 Cardiolipin Igm Antibody 9 MPLU/mL Normal 0-12 19 Anti-Sjogrens A&B Antibodies 10/21/2020 [facility] C Ssa Sjogrens A <0.2 AI Normal 0.0-0.9 SSB Sjogrens B <0.2 AI Normal 0.0-0.9 Laboratory test finding 10/21/2020 [facility] Anti Centromere Antibody <0.2 AI Normal 0.0-0.9 20 Anti-U1 BUYER INTERNSHIP AB <20 units Normal <20 21 Anti Camargo(Sm) AB <20 units Normal <20 22 Laboratory test finding 10/02/2020 [facility] Phosphorus Level 3.6 mg/dL Normal 2.5-4.9 23 [...] High 0.00-0.30 32 CBC With Differential 10/02/2020 [facility] White [...] 36.0-66.0 Lymph % 27.9 % Normal 24.0-44.0 Gila % 6.4 % Normal 2.0-8.0 Eos % 5.6 % High 0.0-3.0 Baso % 0.4 % Normal 0.0-1.0 Immature Granulocyte % 0.3 % Normal 0-3.0 Nucleated Red Blood Cell % 0.0 % Normal 0-0 Neutrophils # 4.6 10 Normal 1.5-8.5 Lymph # 2.2 10 Normal 1.5-5.0 Gila # 0.5 10 Normal 0.0-0.8 Eos # 0.4 10 Normal 0.0-0.5 Baso # 0.0 10 Normal 0.0-0.2 Laboratory test finding 10/02/2020 [facility] Erythrocyte Sedimentation Rate 45 mm/hr High 0-20 Complement Total (CH50) > 60 U/mL Normal >41 33 Lupus Type Anticoagulant Scree 10/02/2020 [facility] PTT Lupus Type Anticoag Screen 1.4 High 0-1.2 34 Laboratory test finding 10/02/2020 [facility] Lupus Confirm Stago 1.27 High 0.00-1.20 35 Lupus Screen Confirmation 10/02/2020 [facility] Hexagonal Phase Phospholipid 0 sec Normal 0-11 [...] Troponin I Reference Interva l for [employer] LOCI: 99th Percentile= 0.00-0.045 ng/ml Risk Stratification: [...] Little GFR Left ESRD GFR <15 on ELECTRICAL ENGINEERING MANAGER 10 Result Units: GPI IgG units . [...] Positive >2.5 14 Specimen Comment: Test(s) 52 [id number] BUYER INTERNSHIP Ab (RDL) Specimen Comment: was developed [...] (RENÉE) Patterns (ICAP). Performed at: - [facility] [address] [id number] Pediatric Nurse Practitioner: Pretty Swain MD, Phone: [phone] Performed at: - [facility] [id number] Pediatric Nurse Practitioner: Prabhakar Hudson MD, Phone: [phone] Performed at: [facility] [address] [place] [id number] Pediatric Nurse Practitioner: Bora Wu MD, Phone: [phone] Specimen Comment: Test(s) 52 [id number] BUYER INTERNSHIP Ab (RDL) Specimen Comment: was developed [...] Positive: >80 20 Specimen Comment: Test(s) 52 [id number]-[id number] BUYER INTERNSHIP Ab (RDL) Specimen Comment: was developed [...] out of range values. Performed at: - [facility] [id number] Pediatric Nurse Practitioner: Pretty Swain MD, Phone: [phone] RESULT IS 1.2 OR GREATER, FURTHER [...] IS PRESENT. SPECIMEN WILL BE SENT TO [facility], [address] [place]. [address] [facility] FOR CONFIRMATION. 36 . Results do not indicate the presence of a Lupus Anticoagulant: abnormal high screening results (PTT-LA, dRVVT, mixing studies), may be due to medication (heparin, warfarin, aspirin), Factor inhibitors, anticardiolipin antibodies, or poor specimen integrity. Performed at: [address] [id number] Pediatric Nurse Practitioner: Prabhakar Hudson MD, Phone: [phone] Procedures Date Code Description Status 12/26/2020 05058 Office/Outpatient Established Lo w [facility] 20-29 Min Completed 06/29/2020 50441 Office/Outpatient Established Lo w [facility]DM 20-29 Min [...] pm - Trav Camargo MD at [facility] 12/26/2020 - Trav Camargo MD* B02.9 Zoster [...] Dr Reason for Referral Status Appt Date [facility] Rheumatology 39 y/o F with hx of elevated RENÉE, pls eval and treat. 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 Could be psychiatric related. Rule out cardiac etiology. Closed 10/12/[address] [facility] [address] [place] [address] [phone]
--- OUTSIDE RECORDS SUMMARY | 2021-01-12 02:14 | CCD | Continuity of Care Document ---
Author Author Leanna CAMARGO M.D. Organization Unknown Address [address] [place] [address] Phone [phone] Care Team Providers Care Supervisor Fusing Room Name Role Phone Trav Camargo M.D. AUTM [phone] [facility] Orthopedics AUTM [phone] [facility] AUTM [phone] Debra Canales [employer] AUTM [phone] [facility] Rheumatology AUTM [phone] Tim Guthrie AUTM Unavailable [facility] Rheumatology AUTM [phone] [facility] Physical Therapy AUTM [phone] Kyaw Contreras MD AUTM [facility] Audiology & Physical Therapy AUTM [phone] [facility] Cardiology- [place] Office AUTM [phone] Problems Active Problems Provider Date Cluster B personality disorder Mercedes Martinez NP Onset: Mild mental handicap Mercedes Martinez NP Onset: 07/31/2016 Stimulant dependence Mercedes Martinez NP Onset: 07/31/2016 Vitamin D deficiency Trav Camargo MD Onset: 04/17/2017 Cannabis abuse, uncomplicated Kendell Becker, WRAPPER HANDS SPRAYER Onset: Alcohol abuse, uncomplicated Kendell Becker, WRAPPER HANDS SPRAYER Onset: Social History Type Date Description Comments [...] 40 Retana Unable to assess criticality 07/18/2016 [place] Dye Unable to assess criticality 07/18/2016 Gabapentin [...] CPT Code Status Date Vaccine Lot # [id number] Given 12/03/2016 Influenza (>35 months) P.F. Vaccine [...] H/L Range Note Venous Blood Gas 12/24/2020 [facility] Venous PH 7.435 units High 7.330-7.430 Venous Partial Pressure Co2 34.9 mmHg Low 38.0-50.0 Venous Partial Pressure O2 107.9 mmHg High 30.0-50.0 Venous Total Co2 24.0 mEq/L Normal 24.0-28.0 Venous Hco3 22.9 mEq/L Low 23.0-27.0 Venous Base Excess -0.7 Normal -2.0-2.0 Venous Standard Hco3 23.9 mEq/L Normal Venous O2 Saturation 98.2 % High 60.0-80.0 Liver Profile 12/24/2020 [facility] Ast/Sgot 23 U/L Normal 7-37 Alt/SGPT 54 U/L Normal 12-78 Alkaline Phosphatase 77 U/L Normal 45-117 Bilirubin,Total 0.4 mg/dL Normal 0.2-1.0 Bilirubin,Direct < 0.1 mg/dL Normal 0.0-0.2 Total Protein 7.2 GM/DL Normal 6.4-8.2 Albumin 3.2 GM/DL Normal 3.2-5.2 Albumin/Globulin Ratio 0.8 Low 1.2-2.2 Laboratory test finding 12/24/2020 [facility] Lipase 102 U/L Normal 73-393 1 Laboratory test finding 12/24/2020 [facility] D-Dimer Quant 552.50 ng/ml High <500 CBC With Differential 12/24/2020 [facility] White Blood Count 11.7 10 High 4.0-10.0 [...] 36.0-66.0 Lymph % 12.1 % Low 24.0-44.0 Hettinger % 1.9 % Low 2.0-8.0 Eos % 0.0 % Normal 0.0-3.0 Baso % 0.3 % Normal 0.0-1.0 Immature Granulocyte % 0.6 % Normal 0-3.0 Nucleated Red Blood Cell % 0.0 % Normal 0-0 Neutrophils # 10.0 10 High 1.5-8.5 Lymph # 1.4 10 Low 1.5-5.0 Hettinger # 0.2 10 Normal 0.0-0.8 Eos # 0.0 10 Normal 0.0-0.5 Baso # 0.0 10 Normal 0.0-0.2 Respiratory Panel 12/24/2020 [facility] Respiratory Panel This respiratory <SEE NOTE> 3 Istat Chem8+ Panel 12/24/2020 [facility] iSTAT HCT 45.0 % Normal 38.0-51.0 iSTAT Glucose 151 mg/dL High 70-105 iSTAT Sodium 134 mEq/L Low 136-145 i[facility] Potassium 5.5 mEq/L High 3.5-5.1 iSTAT CA++ 4.5 mg/dL Normal 4.5-5.3 iSTAT Chloride 105 mEq/L Normal 98-109 iSTAT Co2 26.0 MM/L Normal 23.0-27.0 iSTAT BUN 26 mg/dL Normal 8-26 iSTAT Creatinine 0.7 mg/dL Normal 0.6-1.3 Istat Chem8+ Panel 12/18/2020 [facility] iSTAT HCT 47.0 % Normal 38.0-51.0 iSTAT Glucose 111 mg/dL High 70-105 iSTAT Sodium 139 mEq/L Normal 136-145 iSTAT Potassium 4.1 mEq/L Normal 3.5-5.1 iSTAT CA++ 4.5 mg/dL Normal 4.5-5.3 iSTAT Chloride 103 mEq/L Normal 98-109 iSTAT Co2 26.0 MM/L Normal 23.0-27.0 iSTAT BUN 10 mg/dL Normal 8-26 iSTAT Creatinine 0.8 mg/dL Normal 0.6-1.3 Respiratory Panel 12/18/2020 [facility] Respiratory Panel This respiratory <SEE NOTE> 4 CBC With Differential 12/18/2020 [facility] White Blood Count 8.9 10 Normal 4.0-10.0 [...] 36.0-66.0 Lymph % 16.4 % Low 24.0-44.0 Hettinger % 3.5 % Normal 2.0-8.0 Eos % 3.4 % High 0.0-3.0 Baso % 0.6 % Normal 0.0-1.0 Immature Granulocyte % 0.2 % Normal 0-3.0 Nucleated Red Blood Cell % 0.0 % Normal 0-0 Neutrophils # 6.7 10 Normal 1.5-8.5 Lymph # 1.5 10 Normal 1.5-5.0 Hettinger # 0.3 10 Normal 0.0-0.8 Eos # 0.3 10 Normal 0.0-0.5 Baso # 0.1 10 Normal 0.0-0.2 Cardiac Marker Panel 12/04/2020 [facility] CPK Creatine Phosphokinase 72 U/L Normal 26-192 CK-MB Value Mass 1.5 NG/ML Normal <3.6 MB/CK Relative Index 2.08 Normal < Or =4 6 Troponin I < 0.02 NG/ML Normal < 0.10 7 Respiratory Panel 12/04/2020 [facility] Respiratory Panel This respiratory <SEE NOTE> 8 Comprehensive Metabolic Profil 12/04/2020 [facility] Glucose, Fasting 104 mg/dL High 70-100 Blood [...] 0.9 Low 1.2-2.2 CBC With Differential 12/04/2020 [facility] White Blood Count 9.7 10 Normal 4.0-10.0 [...] 36.0-66.0 Lymph % 11.0 % Low 24.0-44.0 Hettinger % 4.8 % Normal 2.0-8.0 Eos % 1.2 % Normal 0.0-3.0 Baso % 0.7 % Normal 0.0-1.0 Immature Granulocyte % 0.4 % Normal 0-3.0 Nucleated Red Blood Cell % 0.0 % Normal 0-0 Neutrophils # 7.9 10 Normal 1.5-8.5 Lymph # 1.1 10 Low 1.5-5.0 Hettinger # 0.5 10 Normal 0.0-0.8 Eos # 0.1 10 Normal 0.0-0.5 Baso # 0.1 10 Normal 0.0-0.2 Beta-2 Glycoprotein 1 Loni Letha 10/21/2020 [facility] Beta-2 Glycoprotein I Loni Igg <9 Normal 0-20 10 Beta-2 Glycoprotein I Loni Iga <9 Normal 0-25 11 Beta-2 Glycoprotein I Loni Igm 10 Normal 0-32 12 Laboratory test finding 10/21/2020 [facility] Anti-Histone Antibodies 3.1 units High 0.0-0.9 13 Anti DS-Dna AB By Crithidia Negative Normal Negative 14 Renée Titer & Pattern Negative Normal . 15 Anti Scleroderma Antibodies <0.2 AI Normal 0.0-0.9 16 Anti-Cardiolipin Antibodies 10/21/2020 [facility] Cardiolipin Iga Antibody <9 APLU/mL Normal 0-11 17 Cardiolipin Igg Antibody 10 GPLU/mL Normal 0-14 18 Cardiolipin Igm Antibody 9 MPLU/mL Normal 0-12 19 Anti-Sjogrens A&B Antibodies 10/21/2020 [facility] C Ssa Sjogrens A <0.2 AI Normal 0.0-0.9 SSB Sjogrens B <0.2 AI Normal 0.0-0.9 Laboratory test finding 10/21/2020 [facility] Anti Centromere Antibody <0.2 AI Normal 0.0-0.9 20 Anti-U1 JAVA LEAD ARCHITECT AB <20 units Normal <20 21 Anti Camargo(Sm) AB <20 units Normal <20 22 Laboratory test finding 10/02/2020 [facility] Phosphorus Level 3.6 mg/dL Normal 2.5-4.9 23 [...] High 0.00-0.30 32 CBC With Differential 10/02/2020 [facility] White Blood Count 7.8 10 Normal 4.0-10.0 [...] 36.0-66.0 Lymph % 27.9 % Normal 24.0-44.0 Hettinger % 6.4 % Normal 2.0-8.0 Eos % 5.6 % High 0.0-3.0 Baso % 0.4 % Normal 0.0-1.0 Immature Granulocyte % 0.3 % Normal 0-3.0 Nucleated Red Blood Cell % 0.0 % Normal 0-0 Neutrophils # 4.6 10 Normal 1.5-8.5 Lymph # 2.2 10 Normal 1.5-5.0 Hettinger # 0.5 10 Normal 0.0-0.8 Eos # 0.4 10 Normal 0.0-0.5 Baso # 0.0 10 Normal 0.0-0.2 Laboratory test finding 10/02/2020 [facility] Erythrocyte Sedimentation Rate 45 mm/hr High 0-20 Complement Total (CH50) > 60 U/mL Normal >41 33 Lupus Type Anticoagulant Scree 10/02/2020 [facility] PTT Lupus Type Anticoag Screen 1.4 High 0-1.2 34 Laboratory test finding 10/02/2020 [facility] Lupus Confirm Stago 1.27 High 0.00-1.20 35 Lupus Screen Confirmation 10/02/2020 [facility] Hexagonal Phase Phospholipid 0 sec Normal 0-11 [...] Troponin I Reference Interva l for [employer] LOCI: 99th Percentile= 0.00-0.045 ng/ml Risk Stratification: [...] Little GFR Left ESRD GFR <15 on SALES TEAM MEMBER 10 Result Units: GPI IgG units . [...] Positive >2.5 14 Specimen Comment: Test(s) 52 [id number] JAVA LEAD ARCHITECT Ab (RDL) Specimen Comment: was developed and [...] (RENÉE) Patterns (ICAP). Performed at: - [facility] [address] [id number] [employer] Operator: Pretty Swain MD, Phone: [phone] Performed at: - [facility] [id number] [employer] Operator: Prabhakar Hudson MD, Phone: [phone] Performed at: [facility] [address] [place] [id number] [employer] Operator: Bora Wu MD, Phone: [phone] Specimen Comment: Test(s) 52 [id number] JAVA LEAD ARCHITECT Ab (RDL) Specimen Comment: was developed and [...] Positive: >80 20 Specimen Comment: Test(s) 52 [id number] JAVA LEAD ARCHITECT Ab (RDL) Specimen Comment: was developed and [...] out of range values. Performed at: - [facility] [id number] [employer] Operator: Pretty Swain MD, Phone: [phone] RESULT IS 1.2 OR GREATER, FURTHER [...] IS PRESENT. SPECIMEN WILL BE SENT TO [facility], [address] [place]. [address] [facility] 36 . Results do not indicate the presence of a Lupus Anticoagulant: abnormal high screening results (PTT-LA, dRVVT, mixing studies), may be due to medication (heparin, warfarin, aspirin), Factor inhibitors, anticardiolipin antibodies, or poor specimen integrity. Performed at: [address] [id number] [employer] Operator: Prabhakar Hudson MD, Phone: [phone] Procedures Date Code Description Status 12/26/2020 67492 Office/Outpatient Established Lo w [facility] 20-29 Min Completed 06/29/2020 88321 Office/Outpatient Established Lo w [facility]DM 20-29 Min [...] 3:00 pm - Trav Camargo MD at [facility] 12/26/2020 - Trav Camargo MD* B02.9 [...] Dr Reason for Referral Status Appt Date [facility] Rheumatology 39 y/o F with hx of elevated RENÉE, pls eval and treat. 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 Could be psychiatric related. Rule out cardiac etiology. Closed 10/12/[address] [facility] [address] [place] [address] [phone]
--- OUTSIDE RECORDS SUMMARY | 2021-01-12 02:14 | CCD | Continuity of Care Document ---
Author Author Leanna CAMARGO M.D. Organization Unknown Address [address] [place] [address] Phone [phone] Care Team Providers Care Fitter Tacker Name Role Phone Trav Camargo M.D. AUTM [phone] [facility] Orthopedics AUTM [phone] [place] [facility] AUTM [phone] Debra Canales CLEANER AND DYER AUTM [phone] [facility] Rheumatology AUTM [phone] Tim Guthrie AUTM Unavailable [facility] Rheumatology AUTM [phone] [facility] Physical Therapy AUTM [phone] Kyaw Contreras MD AUTM [facility] Audiology & Physical Therapy AUTM [phone] [facility] Cardiology- [place] Office AUTM [phone] Problems Active Problems Provider Date Cluster B personality disorder Mercedes Martinez NP Onset: Mild mental handicap Mercedes Martinez NP Onset: 07/31/2016 Stimulant dependence Mercedes Martinez NP Onset: 07/31/2016 Vitamin D deficiency Trav Camargo MD Onset: 04/17/2017 Cannabis abuse, uncomplicated Kendell Cabell, HOME SPECIALIST Onset: Alcohol abuse, uncomplicated Kendell Cabell, HOME SPECIALIST Onset: Social History Type Date Description Comments [...] 40 Retana Unable to assess criticality 07/18/2016 [place] Dye Unable to assess criticality 07/18/2016 Gabapentin [...] CPT Code Status Date Vaccine Lot # [id number] Given 12/03/2016 Influenza (>35 months) P.F. Vaccine [...] H/L Range Note Venous Blood Gas 12/24/2020 [facility] Venous PH 7.435 units High 7.330-7.430 Venous Partial Pressure Co2 34.9 mmHg Low 38.0-50.0 Venous Partial Pressure O2 107.9 mmHg High 30.0-50.0 Venous Total Co2 24.0 mEq/L Normal 24.0-28.0 Venous Hco3 22.9 mEq/L Low 23.0-27.0 Venous Base Excess -0.7 Normal -2.0-2.0 Venous Standard Hco3 23.9 mEq/L Normal Venous O2 Saturation 98.2 % High 60.0-80.0 Liver Profile 12/24/2020 [facility] Ast/Sgot 23 U/L Normal 7-37 Alt/SGPT 54 U/L Normal 12-78 Alkaline Phosphatase 77 U/L Normal 45-117 Bilirubin,Total 0.4 mg/dL Normal 0.2-1.0 Bilirubin,Direct < 0.1 mg/dL Normal 0.0-0.2 Total Protein 7.2 GM/DL Normal 6.4-8.2 Albumin 3.2 GM/DL Normal 3.2-5.2 Albumin/Globulin Ratio 0.8 Low 1.2-2.2 Laboratory test finding 12/24/2020 [facility] Lipase 102 U/L Normal 73-393 1 Laboratory test finding 12/24/2020 [facility] D-Dimer Quant 552.50 ng/ml High <500 CBC With Differential 12/24/2020 [facility] White Blood Count 11.7 10 High 4.0-10.0 [...] 36.0-66.0 Lymph % 12.1 % Low 24.0-44.0 Randall % 1.9 % Low 2.0-8.0 Eos % 0.0 % Normal 0.0-3.0 Baso % 0.3 % Normal 0.0-1.0 Immature Granulocyte % 0.6 % Normal 0-3.0 Nucleated Red Blood Cell % 0.0 % Normal 0-0 Neutrophils # 10.0 10 High 1.5-8.5 Lymph # 1.4 10 Low 1.5-5.0 Randall # 0.2 10 Normal 0.0-0.8 Eos # 0.0 10 Normal 0.0-0.5 Baso # 0.0 10 Normal 0.0-0.2 Respiratory Panel 12/24/2020 [facility] Respiratory Panel This respiratory <SEE NOTE> 3 Istat Chem8+ Panel 12/24/2020 [facility] iSTAT HCT 45.0 % Normal 38.0-51.0 iSTAT Glucose 151 mg/dL High 70-105 iSTAT Sodium 134 mEq/L Low 136-145 iSTAT Potassium 5.5 mEq/L High 3.5-5.1 iSTAT CA++ 4.5 mg/dL Normal 4.5-5.3 iSTAT Chloride 105 mEq/L Normal 98-109 iSTAT Co2 26.0 MM/L Normal 23.0-27.0 iSTAT BUN 26 mg/dL Normal 8-26 iSTAT Creatinine 0.7 mg/dL Normal 0.6-1.3 Istat Chem8+ Panel 12/18/2020 [facility] iSTAT HCT 47.0 % Normal 38.0-51.0 iSTAT Glucose 111 mg/dL High 70-105 iSTAT Sodium 139 mEq/L Normal 136-145 iSTAT Potassium 4.1 mEq/L Normal 3.5-5.1 iSTAT CA++ 4.5 mg/dL Normal 4.5-5.3 iSTAT Chloride 103 mEq/L Normal 98-109 iSTAT Co2 26.0 MM/L Normal 23.0-27.0 iSTAT BUN 10 mg/dL Normal 8-26 iSTAT Creatinine 0.8 mg/dL Normal 0.6-1.3 Respiratory Panel 12/18/2020 [facility] Respiratory Panel This respiratory <SEE NOTE> 4 CBC With Differential 12/18/2020 [facility] White Blood Count 8.9 10 Normal 4.0-10.0 [...] 36.0-66.0 Lymph % 16.4 % Low 24.0-44.0 Randall % 3.5 % Normal 2.0-8.0 Eos % 3.4 % High 0.0-3.0 Baso % 0.6 % Normal 0.0-1.0 Immature Granulocyte % 0.2 % Normal 0-3.0 Nucleated Red Blood Cell % 0.0 % Normal 0-0 Neutrophils # 6.7 10 Normal 1.5-8.5 Lymph # 1.5 10 Normal 1.5-5.0 Randall # 0.3 10 Normal 0.0-0.8 Eos # 0.3 10 Normal 0.0-0.5 Baso # 0.1 10 Normal 0.0-0.2 Cardiac Marker Panel 12/04/2020 [facility] CPK Creatine Phosphokinase 72 U/L Normal 26-192 CK-MB Value Mass 1.5 NG/ML Normal <3.6 MB/CK Relative Index 2.08 Normal < Or =4 6 Troponin I < 0.02 NG/ML Normal < 0.10 7 Respiratory Panel 12/04/2020 [facility] Respiratory Panel This respiratory <SEE NOTE> 8 Comprehensive Metabolic Profil 12/04/2020 [facility] Glucose, Fasting 104 mg/dL High 70-100 Blood [...] 0.9 Low 1.2-2.2 CBC With Differential 12/04/2020 [facility] White Blood Count 9.7 10 Normal 4.0-10.0 [...] 36.0-66.0 Lymph % 11.0 % Low 24.0-44.0 Randall % 4.8 % Normal 2.0-8.0 Eos % 1.2 % Normal 0.0-3.0 Baso % 0.7 % Normal 0.0-1.0 Immature Granulocyte % 0.4 % Normal 0-3.0 Nucleated Red Blood Cell % 0.0 % Normal 0-0 Neutrophils # 7.9 10 Normal 1.5-8.5 Lymph # 1.1 10 Low 1.5-5.0 Randall # 0.5 10 Normal 0.0-0.8 Eos # 0.1 10 Normal 0.0-0.5 Baso # 0.1 10 Normal 0.0-0.2 Beta-2 Glycoprotein 1 Loni Letha 10/21/2020 [facility] Beta-2 Glycoprotein I Loni Igg <9 Normal 0-20 10 Beta-2 Glycoprotein I Loni Iga <9 Normal 0-25 11 Beta-2 Glycoprotein I Loni Igm 10 Normal 0-32 12 Laboratory test finding 10/21/2020 [facility] Anti-Histone Antibodies 3.1 units High 0.0-0.9 13 Anti DS-Dna AB By Crithidia Negative Normal Negative 14 Janey Titer & Pattern Negative Normal . 15 Anti Scleroderma Antibodies <0.2 AI Normal 0.0-0.9 16 Anti-Cardiolipin Antibodies 10/21/2020 [facility] Cardiolipin Iga Antibody <9 APLU/mL Normal 0-11 17 Cardiolipin Igg Antibody 10 GPLU/mL Normal 0-14 18 Cardiolipin Igm Antibody 9 MPLU/mL Normal 0-12 19 Anti-Sjogrens A&B Antibodies 10/21/2020 [facility] C Ssa Sjogrens A <0.2 AI Normal 0.0-0.9 SSB Sjogrens B <0.2 AI Normal 0.0-0.9 Laboratory test finding 10/21/2020 [facility] Anti Centromere Antibody <0.2 AI Normal 0.0-0.9 20 Anti-U1 TOWEL SORTER AB <20 units Normal <20 21 Anti Camargo(Sm) AB <20 units Normal <20 22 Laboratory test finding 10/02/2020 [facility] Phosphorus Level 3.6 mg/dL Normal 2.5-4.9 23 [...] High 0.00-0.30 32 CBC With Differential 10/02/2020 [facility] White Blood Count 7.8 10 Normal [...] 36.0-66.0 Lymph % 27.9 % Normal 24.0-44.0 Randall % 6.4 % Normal 2.0-8.0 Eos % 5.6 % High 0.0-3.0 Baso % 0.4 % Normal 0.0-1.0 Immature Granulocyte % 0.3 % Normal 0-3.0 Nucleated Red Blood Cell % 0.0 % Normal 0-0 Neutrophils # 4.6 10 Normal 1.5-8.5 Lymph # 2.2 10 Normal 1.5-5.0 Randall # 0.5 10 Normal 0.0-0.8 Eos # 0.4 10 Normal 0.0-0.5 Baso # 0.0 10 Normal 0.0-0.2 Laboratory test finding 10/02/2020 [facility] Erythrocyte Sedimentation Rate 45 mm/hr High 0-20 Complement Total (CH50) > 60 U/mL Normal >41 33 Lupus Type Anticoagulant Scree 10/02/2020 [facility] PTT Lupus Type Anticoag Screen 1.4 High 0-1.2 34 Laboratory test finding 10/02/2020 [facility] Lupus Confirm Stago 1.27 High 0.00-1.20 35 Lupus Screen Confirmation 10/02/2020 [facility] Hexagonal Phase Phospholipid 0 sec Normal 0-11 Comment For Hexagonal Confirm1 (SEE NOTE) Normal . 36 1 note:<nlbl:demographic_chang ed> 2 Small plt clumps seen on sli de 3 This respiratory PCR panel d etects Influenza A H1, H3 and 2008 H1 viruses, Influenza B virus, Resp iratory Syncytial Virus, Human metapneumovirus, Parainfluenza virus 1, 2, 3 and 4, Adenovirus, Rhinovirus/Enterovirus, Coronavirus HKU1, NL63, OC43, 229E and SARS-CoV-2 (COVID 19), Bordetella pertussis, Bordetella parapertussis, Mycoplasma pneumoniae and Chlamydia pneumoniae. NEGATIVE by MULTIPLEXED NUCLEIC ACID PCR SARS-CoV-2 (COVID 19) NEGATIVE - SARS-CoV-2 (COVID19) 4 This respiratory PCR panel d etects Influenza A H1, H3 and 2008 H1 viruses, Influenza B virus, Resp iratory [...] Troponin I Reference Interva l for Siemens [place] LOCI: 99th Percentile= 0.00-0.045 ng/ml Risk Stratification: [...] Little GFR Left ESRD GFR <15 on ECONOMIC HISTORY TEACHER 10 Result Units: GPI IgG units . [...] Positive >2.5 14 Specimen Comment: Test(s) 52 8065-Jcmy-V7 TOWEL SORTER Ab (RDL) Specimen Comment: was developed and [...] Antibody (JANEY) Patterns (ICAP). Performed at: - [facility] [id number] Desk Top Publisher: Pretty Swain MD, Phone: [phone] Performed at: [facility] [address] [id number] Desk Top Publisher: Prabhakar Hudson MD, Phone: [phone] Performed at: [facility] (formerly [employer] [employer] [address] [place] [id number] Desk Top Publisher: Broa Wu MD, Phone: [phone] Specimen Comment: Test(s) 52 6771-Exbj-Q2 TOWEL SORTER Ab (RDL) Specimen Comment: was developed and [...] Positive: >80 20 Specimen Comment: Test(s) 52 4336-Kdae-X0 TOWEL SORTER Ab (RDL) Specimen Comment: was developed and [...] range values. Performed at: RN - [facility] [address] [id number] Desk Top Publisher: Pretty Swain MD, Phone: [phone] RESULT IS 1.2 OR GREATER, FURTHER [...] IS PRESENT. SPECIMEN WILL BE SENT TO [facility], [address] [place]. [address] [facility]. 36 . Results do not indicate the presence of a Lupus Anticoagulant: abnormal high screening results (PTT-LA, dRVVT, mixing studies), may be due to medication (heparin, warfarin, aspirin), Factor inhibitors, anticardiolipin antibodies, or poor specimen integrity. Performed at: [facility] [address] [id number] Desk Top Publisher: Prabhakar Hudson MD, Phone: [phone] Procedures Date Code Description Status 06/29/2020 [address]5092 Office/Outpatient Established w [facility] 20-29 Min Completed Medical Devices Description No Information Available Encounters Description No Information Available Assessments Date Code Description Provider 06/29/2020 R76.0 Raised antibody titer Trav Camargo MD 06/29/2020 M51.36 Other intervertebral disc degene ration, lumbar region Trav Camargo MD 06/29/2020 R55 Syncope and collapse Trav manuel MD Plan of Treatment Future Appointment(s):* 01/01/2021 3:00 pm - Trav Camargo MD at [facility] Functional Status Functional Condition Comment Date Status Hearing Aid in both ears Active Mental Status Description No Information Available Referrals Refer to Reason for Referral Status Appt Date [facility] Rheumatology 39 y/o F with hx of elevated JANEY, pls eval and treat. 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 Could be psychiatric related. Rule out cardiac etiology. Closed 10/12/[address] [place] [address] [phone]
--- OUTSIDE RECORDS SUMMARY | 2021-01-12 02:15 | CCD | Continuity of Care Document ---
Author Author Leanna CAMARGO M.D. Organization Unknown Address [address] [place] [address] Phone [phone] Care Team Providers Care Sand Caster Name Role Phone Trav Camargo M.D. AUTM [phone] [facility] Orthopedics AUTM [phone] [place] [facility] AUTM [phone] Debra Canales EXPERIMENTAL MECHANIC OUTBO[employer] MOTORS AUTM [phone] [facility] Rheumatology AUTM [phone] Tim Guthrie AUTM Unavailable [facility] Rheumatology AUTM [phone] [facility] Physical Therapy AUTM [phone] Kyaw Contreras MD AUTM [phone] [facility] Audiology & Physical Therapy AUTM [phone] [facility] Cardiology- [place] Office AUTM Problems Active Problems Provider Date Cluster B personality disorder Mercedes Martinez NP Onset: Mild mental handicap Mercedes Martinez NP Onset: 07/31/2016 Stimulant dependence Mercedes Martinez NP Onset: 07/31/2016 Vitamin D deficiency Trav Camargo MD Onset: 04/17/2017 Cannabis abuse, uncomplicated Kendell [place], SENIOR ACCOUNT MANAGER Onset: Alcohol abuse, uncomplicated Kendell [place], SENIOR ACCOUNT MANAGER Onset: Social History Type Date Description [...] 40 Retana Unable to assess criticality 07/18/2016 [place] Dye Unable to assess criticality 07/18/2016 Gabapentin [...] CPT Code Status Date Vaccine Lot # [id number] Given 12/03/2016 Influenza (>35 months) P.F. Vaccine [...] H/L Range Note Venous Blood Gas 12/24/2020 [facility] Venous PH 7.435 units High 7.330-7.430 Venous Partial Pressure Co2 34.9 mmHg Low 38.0-50.0 Venous Partial Pressure O2 107.9 mmHg High 30.0-50.0 Venous Total Co2 24.0 mEq/L Normal 24.0-28.0 Venous Hco3 22.9 mEq/L Low 23.0-27.0 Venous Base Excess -0.7 Normal -2.0-2.0 Venous Standard Hco3 23.9 mEq/L Normal Venous O2 Saturation 98.2 % High 60.0-80.0 Liver Profile 12/24/2020 [facility] Ast/Sgot 23 U/L Normal 7-37 Alt/SGPT 54 U/L Normal 12-78 Alkaline Phosphatase 77 U/L Normal 45-117 Bilirubin,Total 0.4 mg/dL Normal 0.2-1.0 Bilirubin,Direct < 0.1 mg/dL Normal 0.0-0.2 Total Protein 7.2 GM/DL Normal 6.4-8.2 Albumin 3.2 GM/DL Normal 3.2-5.2 Albumin/Globulin Ratio 0.8 Low 1.2-2.2 Laboratory test finding 12/24/2020 [facility] Lipase 102 U/L Normal 73-393 1 Laboratory test finding 12/24/2020 [facility] D-Dimer Quant 552.50 ng/ml High <500 CBC With Differential 12/24/2020 [facility] White Blood Count 11.7 10 High [...] 36.0-66.0 Lymph % 12.1 % Low 24.0-44.0 [place] % 1.9 % Low 2.0-8.0 Eos % 0.0 % Normal 0.0-3.0 Baso % 0.3 % Normal 0.0-1.0 Immature Granulocyte % 0.6 % Normal 0-3.0 Nucleated Red Blood Cell % 0.0 % Normal 0-0 Neutrophils # 10.0 10 High 1.5-8.5 Lymph # 1.4 10 Low 1.5-5.0 [place] # 0.2 10 Normal 0.0-0.8 Eos # 0.0 10 Normal 0.0-0.5 Baso # 0.0 10 Normal 0.0-0.2 Respiratory Panel 12/24/2020 [facility] Respiratory Panel This respiratory <SEE NOTE> 3 Istat Chem8+ Panel 12/24/2020 [facility] iSTAT HCT 45.0 % Normal 38.0-51.0 iSTAT Glucose 151 mg/dL High 70-105 iSTAT Sodium 134 mEq/L Low 136-145 iSTAT Potassium 5.5 mEq/L High 3.5-5.1 iSTAT CA++ 4.5 mg/dL Normal 4.5-5.3 iSTAT Chloride 105 mEq/L Normal 98-109 iSTAT Co2 26.0 MM/L Normal 23.0-27.0 iSTAT BUN 26 mg/dL Normal 8-26 iSTAT Creatinine 0.7 mg/dL Normal 0.6-1.3 Istat Chem8+ Panel 12/18/2020 [facility] iSTAT HCT 47.0 % Normal 38.0-51.0 iSTAT Glucose 111 mg/dL High 70-105 iSTAT Sodium 139 mEq/L Normal 136-145 iSTAT Potassium 4.1 mEq/L Normal 3.5-5.1 iSTAT CA++ 4.5 mg/dL Normal 4.5-5.3 iSTAT Chloride 103 mEq/L Normal 98-109 iSTAT Co2 26.0 MM/L Normal 23.0-27.0 iSTAT BUN 10 mg/dL Normal 8-26 iSTAT Creatinine 0.8 mg/dL Normal 0.6-1.3 Respiratory Panel 12/18/2020 [facility] Respiratory Panel This respiratory <SEE NOTE> 4 CBC With Differential 12/18/2020 [facility] White Blood Count 8.9 10 Normal [...] 36.0-66.0 Lymph % 16.4 % Low 24.0-44.0 [place] % 3.5 % Normal 2.0-8.0 Eos % 3.4 % High 0.0-3.0 Baso % 0.6 % Normal 0.0-1.0 Immature Granulocyte % 0.2 % Normal 0-3.0 Nucleated Red Blood Cell % 0.0 % Normal 0-0 Neutrophils # 6.7 10 Normal 1.5-8.5 Lymph # 1.5 10 Normal 1.5-5.0 [place] # 0.3 10 Normal 0.0-0.8 Eos # 0.3 10 Normal 0.0-0.5 Baso # 0.1 10 Normal 0.0-0.2 Cardiac Marker Panel 12/04/2020 [facility] CPK Creatine Phosphokinase 72 U/L Normal 26-192 CK-MB Value Mass 1.5 NG/ML Normal <3.6 MB/CK Relative Index 2.08 Normal < Or =4 6 Troponin I < 0.02 NG/ML Normal < 0.10 7 Respiratory Panel 12/04/2020 [facility] Respiratory Panel This respiratory <SEE NOTE> 8 Comprehensive Metabolic Profil 12/04/2020 [facility] Glucose, Fasting 104 mg/dL High 70-100 [...] 0.9 Low 1.2-2.2 CBC With Differential 12/04/2020 [facility] White Blood Count 9.7 10 Normal [...] 36.0-66.0 Lymph % 11.0 % Low 24.0-44.0 [place] % 4.8 % Normal 2.0-8.0 Eos % 1.2 % Normal 0.0-3.0 Baso % 0.7 % Normal 0.0-1.0 Immature Granulocyte % 0.4 % Normal 0-3.0 Nucleated Red Blood Cell % 0.0 % Normal 0-0 Neutrophils # 7.9 10 Normal 1.5-8.5 Lymph # 1.1 10 Low 1.5-5.0 [place] # 0.5 10 Normal 0.0-0.8 Eos # 0.1 10 Normal 0.0-0.5 Baso # 0.1 10 Normal 0.0-0.2 Beta-2 Glycoprotein 1 Loni Letha 10/21/2020 [facility] Beta-2 Glycoprotein I Loni Igg <9 Normal 0-20 10 Beta-2 Glycoprotein I Loni Iga <9 Normal 0-25 11 Beta-2 Glycoprotein I Loni Igm 10 Normal 0-32 12 Laboratory test finding 10/21/2020 [facility] Anti-Histone Antibodies 3.1 units High 0.0-0.9 13 Anti DS-Dna AB By Crithidia Negative Normal Negative 14 Janey Titer & Pattern Negative Normal . 15 Anti Scleroderma Antibodies <0.2 AI Normal 0.0-0.9 16 Anti-Cardiolipin Antibodies 10/21/2020 [facility] Cardiolipin Iga Antibody <9 APLU/mL Normal 0-11 17 Cardiolipin Igg Antibody 10 GPLU/mL Normal 0-14 18 Cardiolipin Igm Antibody 9 MPLU/mL Normal 0-12 19 Anti-Sjogrens A&B Antibodies 10/21/2020 [facility] C Ssa Sjogrens A <0.2 AI Normal 0.0-0.9 SSB Sjogrens B <0.2 AI Normal 0.0-0.9 Laboratory test finding 10/21/2020 [facility] Anti Centromere Antibody <0.2 AI Normal 0.0-0.9 20 Anti-U1 MENTAL HEALTH NURSE AB <20 units Normal <20 21 Anti Camargo(Sm) AB <20 units Normal <20 22 Laboratory test finding 10/02/2020 [facility] Phosphorus Level 3.6 mg/dL Normal 2.5-4.9 [...] High 0.00-0.30 32 CBC With Differential 10/02/2020 [facility] White Blood Count 7.8 10 Normal [...] 36.0-66.0 Lymph % 27.9 % Normal 24.0-44.0 [place] % 6.4 % Normal 2.0-8.0 Eos % 5.6 % High 0.0-3.0 Baso % 0.4 % Normal 0.0-1.0 Immature Granulocyte % 0.3 % Normal 0-3.0 Nucleated Red Blood Cell % 0.0 % Normal 0-0 Neutrophils # 4.6 10 Normal 1.5-8.5 Lymph # 2.2 10 Normal 1.5-5.0 [place] # 0.5 10 Normal 0.0-0.8 Eos # 0.4 10 Normal 0.0-0.5 Baso # 0.0 10 Normal 0.0-0.2 Laboratory test finding 10/02/2020 [facility] Erythrocyte Sedimentation Rate 45 mm/hr High 0-20 Complement Total (CH50) > 60 U/mL Normal >41 33 Lupus Type Anticoagulant Scree 10/02/2020 [facility] PTT Lupus Type Anticoag Screen 1.4 High 0-1.2 34 Laboratory test finding 10/02/2020 [facility] Lupus Confirm Stago 1.27 High 0.00-1.20 35 Lupus Screen Confirmation 10/02/2020 [facility] Hexagonal Phase Phospholipid 0 sec Normal [...] Troponin I Reference Interva l for Siemens [place] LOCI: 99th Percentile= 0.00-0.045 ng/ml Risk Stratification: [...] Little GFR Left ESRD GFR <15 on CNC LATHE MACHINE OPERATOR 10 Result Units: GPI IgG units . [...] Positive >2.5 14 Specimen Comment: Test(s) 52 8399-[id number] MENTAL HEALTH NURSE Ab (RDL) Specimen Comment: was developed and [...] Antibody (JANEY) Patterns (ICAP). Performed at: - [facility] [id number] [employer] Repairer: Pretty Swain MD, Phone: [phone] Performed at: [facility] [address] [id number] [employer] Repairer: Prabhakar Hudson MD, Phone: [phone] Performed at: [facility] [employer] [address] [place] [id number] [employer] Repairer: Bora Wu MD, Phone: [phone] Specimen Comment: Test(s) 52 8358-Ujyu-Z5 MENTAL HEALTH NURSE Ab (RDL) Specimen Comment: was developed and [...] Positive: >80 20 Specimen Comment: Test(s) 52 0066-Tkho-D3 MENTAL HEALTH NURSE Ab (RDL) Specimen Comment: was developed and [...] range values. Performed at: RN - [facility] [address] [id number] [employer] Repairer: Pretty Swain MD, Phone: [phone] RESULT IS 1.2 OR GREATER, FURTHER [...] IS PRESENT. SPECIMEN WILL BE SENT TO [employer], [address] [place]. [address] [facility]. 36 . Results do not indicate the presence of a Lupus Anticoagulant: abnormal high screening results (PTT-LA, dRVVT, mixing studies), may be due to medication (heparin, warfarin, aspirin), Factor inhibitors, anticardiolipin antibodies, or poor specimen integrity. Performed at: [facility] [address] [id number] [employer] Repairer: Prabhakar Hudson MD, Phone: [phone] Procedures Date Code Description Status 06/29/2020 36[address] Office/Outpatient Established w [facility] 20-29 Min Completed Medical Devices Description No Information Available Encounters Description No Information Available Assessments Date Code Description Provider 06/29/2020 R76.0 Raised antibody titer Trav Camargo MD 06/29/2020 M51.36 Other intervertebral disc degene ration, lumbar region Trav Camargo MD 06/29/2020 R55 Syncope and collapse Trav manuel MD Plan of Treatment Future Appointment(s):* 12/28/2020 9:00 am - Trav Camargo MD at [facility] * 01/01/2021 3:00 pm - Trav Camargo MD at [facility] Functional Status Functional Condition Comment Date Status Hearing Aid in both ears Active Mental Status Description No Information Available Referrals Refer to Reason for Referral Status Appt Date [facility] Rheumatology 39 y/o F with hx of elevated JANEY, pls eval and treat. Closed 629 [facility] [address] Floor [place], [place] [id number] [phone] 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 Could be psychiatric related. Rule out cardiac etiology. Closed 10/12/[address] [place], [place] [address] [phone]
--- OUTSIDE RECORDS SUMMARY | 2021-01-12 02:16 | CCD ---
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 Care Brake Adjuster Name Role Phone SYSTEM IN, NOT IN [...] Unavailable Unavailable HERNANDEZ, CAITLIN MD Unavailable Unavailable HERANNDEZ, CAITLIN MD Unavailable Unavailable HERNANDEZ, CAITLIN MD [...] Unavailable Unavailable HERNANDEZ, CAITLIN MD Unavailable Unavailable HENRANDEZ, CAITLIN MD Unavailable Unavailable HERNANDEZ, CAITLIN MD [...] Unavailable Unavailable HERNANDEZ, CAITLIN MD Unavailable Unavailable HERNADNEZ, CAITLIN MD Unavailable Unavailable HERNANDEZ, CAITLIN MD [...] Unavailable Unavailable HERNANDEZ, CAITLIN MD Unavailable Unavailable CAITLIN HERNANDEZ MD Unavailable Unavailable CAITLIN HERNANDEZ MD Unavailable Unavailable CAITLIN HERNANDEZ MD Unavailable Unavailable CAITLIN HERNANDEZ MD Unavailable Unavailable CAITLIN HERNANDEZ MD Unavailable Unavailable CAITLIN HERNANDEZ MD Unavailable Unavailable CAITLIN HERNANDEZ MD Unavailable Unavailable CAITLIN HERNANDEZ MD Unavailable Unavailable CAITLIN HERNANDEZ MD Unavailable Unavailable Miguel Angel, Ericka Unavailable Unavailable TalbertDean estrada MD Unavailable Unavailable Dean Talbert MD Unavailable Unavailable TalbertDean estrada MD Unavailable Unavailable TalbertDean estrada MD Unavailable Unavailable TalbertDean estrada MD Unavailable Unavailable TalbertDean estrdaa MD Unavailable Unavailable TalbertDean estrada MD Unavailable [...] Talbert MD Unavailable Unavailable GEOFF, H EZEQUIEL IP PARALEGAL Unavailable Unavailable GEOFF, H EZEQUIEL IP PARALEGAL Unavailable Unavailable GEOFF, H EZEQUIEL IP PARALEGAL Unavailable Unavailable GEOFF, H EZEQUIEL IP PARALEGAL Unavailable Unavailable GEOFF, H EZEQUIEL IP PARALEGAL Unavailable Unavailable GEOFF, H EZEQUIEL IP PARALEGAL Unavailable Unavailable GEOFF, H EZEQUIEL IP PARALEGAL Unavailable Unavailable GEOFF, H EZEQUIEL IP PARALEGAL Unavailable Unavailable GEOFF, H EZEQUIEL IP PARALEGAL Unavailable Unavailable Mirtha Manley MD Unavailable Unavailable Mirtha Manley MD Unavailable Unavailable [employer] Unavailable Unavailable Mirtha Manley MD Unavailable Unavailable [...] is protected by Article 27-F of the [place] Public Health law. If you continue you may have access to information: Regarding HIV / AIDS; Provided by facilities licensed or operated by the [facility] Office of Mental Health; or Provided by the [facility] Office for People With Developmental Disabilities. If such information is present, then the following [facility] mandated warning applies: This information has [...] Data Source(s ) Propensity to adverse reactions ULTRAM ULTRAM [facility] Propensity to adverse reactions NEURONTIN NEURONTIN [facility] Food allergy SEAFOOD SEAFOOD [facility] Drug allergy ATENOLOL ATENOLOL [facility] Drug allergy AMITRIPTYLINE AMITRIPTYLINE ANAPHYLAXIS VOMITING [facility] Drug allergy NORTRIPTYLINE NORTRIPTYLINE [facility] Propensity to adverse reactions to substance nkda 24 HR Bupropion Hydrochloride 150 MG Extended Release Oral Tablet Active [facility] ([facility]) Family History Family Member Name Family Member Gender Family Member Status Date o f Status Description Data Source(s) Unknown Male Problem MEDENT ([facility]) Unknown Male Problem MEDENT ([facility] ) Encounters Encounter Providers Location Date Indications Data Source(s ) Outpatient Attender: CAITLIN HERNANDEZ MD Family Practice 12/26/2020 0 2:00:00 PM EDT MEDENT ([facility]) Outpatient Attender: CAITLIN HERNANDEZ MDConsultant: CAITLIN Lenz MD 12/26/2020 01:59:00 PM EDT - 12/26/2020 01:59:00 PM EDT [facility] Extended Individual Psychotherapy - 45 min Attender: Ericka Michelle [facility] Assisted 11/17/2020 02:30:00 AM EDT - 11/17/2020 02:30:00 AM EDT [facility] ([facility]) Attender: Ericka Michelle 11/17/2020 12:00:00 AM EDT [facility] ([facility]) [place] [address] [facility] [address] 11/16/2020 12:00:00 AM EDT [facility] [place] [address] [address] 11/03/2020 12:00:00 AM EDT eCW1 ([facility]) [place] [address] [address] 10/26/2020 12:00:00 AM EDT eCW1 ([facility]) Outpatient Attender: Mirtha RIVERAeferrer: CAITLIN Lenz MD [email or web address] 10/13/2020 09:32:45 AM EDT - 10/13/2020 10:39:59 AM EDT [facility] Outpatient [address] [facility] [address] 10/02/2020 12:00:00 AM EDT eCW1 ([facility]) [place] [address] [address] 10/02/2020 12:00:00 AM EDT eCW1 ([facility]) Outpatient [address] [facility] [address] 09/28/2020 12:00:00 AM EDT eCW1 ([facility]) Extended Individual Psychotherapy - 45 min Attender: Ericka Michelle [facility] 09/18/2020 02:00:00 AM EDT - 09/18/2020 02:00:00 AM EDT [facility] ([facility]) Attender: Ericka Michelle 09/18/2020 12:00:00 AM EDT [facility] ([facility]) Attender: Ericka Michelle 08/17/2020 12:00:00 AM EDT [facility] ([facility]) Extended Individual Psychotherapy - 45 min Attender: Ericka Michelle [facility] 08/16/2020 10:00:00 AM EDT - 08/16/2020 10:00:00 AM EDT [facility] ([facility]) Extended Individual Psychotherapy - 45 min Attender: Ericka Michelle [facility] 07/25/2020 10:00:00 AM EDT - 07/25/2020 10:00:00 AM EDT [facility] ([facility]) Attender: Ericka Michelle 07/25/2020 12:00:00 AM EDT [facility] ([facility]) Extended Individual Psychotherapy - 45 min Attender: Ericka Michelle [facility] 07/07/2020 02:45:00 AM EDT - 07/07/2020 02:45:00 AM EDT [facility] ([facility]) Attender: Ericka Mcguireus 07/07/2020 12:00:00 AM EDT [facility] ([facility]) Outpatient Attender: Dean Talbert MD [facility] at [facility] 07/06/2020 10:40:00 AM EDT MEDENT ([facility]) Outpatient Attender: CAITLIN HERNANDEZ MDConsultant: CAITLIN Lenz MD 06/29/2020 02:34:00 PM EDT - 06/29/2020 02:34:00 PM EDT [facility] ( ESTOB) [facility] OB [address] [place] [address] 06/28/2020 12:00:00 AM EDT eCW1 ([facility]) Extended Individual Psychotherapy - 45 min Attender: Ericka Michelle [facility] 06/20/2020 03:15:00 AM EDT - 06/20/2020 03:15:00 AM EDT [facility] ([facility]) Attender: Ericka Mcguireus 06/20/2020 12:00:00 AM EDT [facility] ([facility]) Outpatient Attender: CAITLIN HERNANDEZ MD Family Practice 06/15/2020 0 3:00:00 PM EDT MEDENT ([facility]) Outpatient Attender: CAITLIN HERNANDEZ MDConsultant: CAILTIN Lenz MD 06/15/2020 02:04:00 PM EDT - 06/15/2020 02:04:00 PM EDT [facility] Outpatient Attender: EZEQUIEL BAIG NP [facility] Eliezer lenz 06/01/2020 02:30:00 AM EDT - 06/01/2020 02:30:00 AM EDT [facility] ([facility]) Attender: EZEQUIEL BAIG NP 06/01/2020 12:00:00 AM EDT [facility] ([facility]) Extended Individual Psychotherapy - 45 min Att[facility]: [facility] 02:00:00 AM EDT - 05/24/2020 02:00:00 AM EDT [facility] ([facility]) Attender: Ericka Michelle 05/24/2020 12:00:00 AM EDT [facility] ([facility]) Extended Individual Psychotherapy - 45 min Attender: Ericka Miguel Angel [facility] 05/09/2020 02:00:00 AM EST - 05/09/2020 02:00:00 AM EST [facility] ([facility]) Attender: Ericka Michelle 05/09/2020 12:00:00 AM EST [facility] ([facility]) Outpatient Attender: EZEQUIEL BAIG NP [facility] Eliezer lenz 04/27/2020 11:00:00 AM EST - 04/27/2020 11:00:00 AM EST [facility] ([facility]) ( ESTOB) [facility] Est OB [address] [place] [address] 04/27/2020 12:00:00 AM EST eCW1 ([facility]) Attender: EZEQUIEL BAIG NP 04/27/2020 12:00:00 AM EST [facility] ([facility]) Extended Individual Psychotherapy - 45 min Attender: Eircka Miguel Angel [facility] 04/25/2020 10:00:00 AM EST - 04/25/2020 10:00:00 AM EST [facility] ([facility]) Attender: Ericka Michelle 04/25/2020 12:00:00 AM EST [facility] ([facility]) Extended Individual Psychotherapy - 45 min Attender: Ericka Michelle [facility] 04/11/2020 11:00:00 AM EST - 04/11/2020 11:00:00 AM EST [facility] ([facility]) Attender: Ericka Michelle 04/11/2020 12:00:00 AM EST [facility] ( ESTOB) enter Est OB [address] [place] [address] 04/04/2020 12:00:00 AM EST eCW1 ([facility]) ( COB) WCenter Complicated OB [address] [place] [address] 03/31/2020 12:00:00 AM EST eCW1 ([facility]) Extended Individual Psychotherapy - 45 min Attender: Ericka Michelle [facility] 03/24/2020 02:00:00 AM EST - 03/24/2020 02:00:00 AM EST [facility]: Ericka Michelle 03/24/2020 12:00:00 AM EST [facility] ( ESTOB) enter Est OB [address] [place] [address] 03/23/2020 12:00:00 AM EST eCW1 ([facility]) Outpatient Attender: EZEQUIEL BAIG NP [facility] Eliezer lenz 03/21/2020 11:00:00 AM EST - 03/21/2020 11:00:00 AM EST [facility] [place] [address] [address] 03/21/2020 12:00:00 AM EST eCW1 ([facility]) Attender: EZEQUIEL BAIG NP 03/21/2020 12:00:00 AM EST [facility] Extended Individual Psychotherapy - 45 min Attender: Ericka Michelle [facility] Assisted 03/17/2020 11:00:00 AM EST - 03/17/2020 11:00:00 AM EST [facility] ([facility]) Attender: Ericka Miguel Angel 03/17/2020 12:00:00 AM EST [facility] ([facility]) (WC ESTOB) WCenter Est OB [address] [place] [address] 03/16/2020 12:00:00 AM EST eCW1 ([facility]) Unknown [address] [facility] [address] 03/10/2020 12:00:00 AM EST eCW1 ([facility]) (WC ESTOB) WCenter Est OB [address] [place] [address] 03/08/2020 12:00:00 AM EST eCW1 ([facility]) Extended Individual Psychotherapy - 45 min Attender: Ericka Michelle [facility] 03/06/2020 01:00:00 AM EST - 03/06/2020 01:00:00 AM EST [facility] ([facility]) Attender: Ericka Michelle 03/06/2020 12:00:00 AM EST [facility] ([facility]) Outpatient Referrer: PROVIDER SYSTEM IN 03/02/2020 1 0:20:00 AM EST shingles with occular involvement [facility] shingles with occular involvement [place] [address] [facility] [place] [address] 02/28/2020 12:00:00 AM EST eCW1 ([facility]) (WC [place]) enter Nurse Visit [address] [place] [address] 02/28/2020 12:00:00 AM EST eCW1 ([facility]) (WC ESTOB) WCenter Est OB [address] [place] [address] 02/21/2020 12:00:00 AM EST eCW1 ([facility]) Extended Individual Psychotherapy - 45 min Attender: Ericka Michelle [facility] 02/11/2020 10:00:00 AM EST - 02/11/2020 10:00:00 AM EST [facility] ([facility]) Attender: Ericka Michelle 02/11/2020 12:00:00 AM EST [facility] ([facility]) Outpatient Attender: EZEQUIEL BAIG NP [facility] Eliezre lenz 01/25/2020 10:00:00 AM EST - 01/25/2020 10:00:00 AM EST [facility] ([facility]) Extended Individual Psychotherapy - 45 min Attender: Ericka Michelle [facility] 01/25/2020 09:00:00 AM EST - 01/25/2020 09:00:00 AM EST [facility] ([facility]) Attender: EZEQUIEL BAIG NP 01/25/2020 12:00:00 AM EST [facility] ([facility]) Attender: Ericka Miguel Angel 01/25/2020 12:00:00 AM EST [facility] ([facility]) ( ESTOB) [facility] Est OB [address] [place] [address] 01/24/2020 12:00:00 AM EST eCW1 ([facility]) Unknown [address] [facility] [facility] [address] 01/21/2020 12:00:00 AM EST eCW1 ([facility]) Extended Individual Psychotherapy - 45 min Attender: Ericka Miguel Angel [facility] 01/10/2020 10:00:00 AM EST - 01/10/2020 10:00:00 AM EST [facility] ([facility]) Attender: Ericka Michelle 01/10/2020 12:00:00 AM EST [facility] ([facility]) (WC ESTOB) enter Est OB [address] [place] [address] 01/07/2020 12:00:00 AM EST eCW1 ([facility]) Outpatient Attender: EZEQUIEL BAIG NP [facility] Eliezer lenz 12/30/2019 10:30:00 AM EDT - 12/30/2019 10:30:00 AM EDT [facility] ([facility]) Attender: EZEQUIEL BAIG NP 12/30/2019 12:00:00 AM EDT [facility] ([facility]) Brief Individual Psychotherapy - 30 min Att[facility]: [facility] 12/16/2019 11:00:00 AM EDT - 12/16/2019 11:00:00 AM EDT [facility] ([facility]) Attender: Ericka Michelle 12/16/2019 12:00:00 AM EDT [facility] ([facility]) ( ESTOB) enter Est OB [address] [place] [address] 12/08/2019 12:00:00 AM EDT eCW1 ([facility]) Outpatient Attender: EZEQUIEL BAIG NP [facility] Eliezer lenz 12/02/2019 11:15:00 AM EDT - 12/02/2019 11:15:00 AM EDT [facility] ([facility]) Attender: EZEQUIEL BAIG NP 12/02/2019 12:00:00 AM EDT [facility] ([facility]) Extended Individual Psychotherapy - 45 min Attender: Ericka [facility] 11/30/2019 11:00:00 AM EDT - 11/30/2019 11:00:00 AM EDT [facility] ([facility]) Attender: Ericka Michelle 11/30/2019 12:00:00 AM EDT [facility] ([facility]) Functional Status Immunizations Vaccine Date Status Description Data Source(s) COVID-19 VACCINE Mayra 07/24/2020 12:00:00 AM EDT completed [place] Vaccine Series Complete: YESThis Data wa s Submitted to [facility] [employer]. Medications Medication Brand Name Start Date Product Form Dose Route Admi nistrative Instructions Pharmacy Instructions Status Indications Reaction Description Data Source(s) valacyclovir 1000 MG Oral Tablet Valacyclovir HCL 12/26/2020 12:00: 00 AM EDT ORAL active MEDENT ([facility]) Aimovig 140 MG/ML SOAJ [id number] 09/16/2020 12:00:00 AM EDT active INJECT 140MG UNDER THE SKIN ONCE A MONTH [facility] pregabalin 75 MG Oral Capsule pregabalin (LYRICA) 75 M G capsule pregabalin (LYRICA) 75 MG capsule 08/18/2020 12:00:00 AM EDT active TAKE ONE CAPSULE BY MOUTH TWO TIMES A DAY MAXIMUM DAILY DOSE 2 CAPS [facility] Escitalopram 10 MG Oral Tablet [Lexapro] Lexapro 07/06/2020 12 :00:00 AM EDT 10 mg by mouth completed <td ID="Me dicationRxNorm_1">708778</td><td ID="MedicationMedication_1">Lexapro</td><td ID="MedicationRoute_1">by mouth</td><td ID="MedicationRouteConcept_1">Z09809</td><td ID="MedicationStartDate_1">07/06/2020</td><td ID="MedicationStopDate_1">09/04/2020</td><td ID="MedicationDosageFrequency_1">once a day</td><td ID="MedicationDuration_1">30</td><td ID="MedicationFormulaStrength_1">10 mg</td><td ID="MedicationDosageForm_1">tablet</td><td ID="MedicationDosageFormCode_1"></td><td ID="MedicationDosageDescription_1"></td><td ID="MedicationMedicationId_1">[id number]</td><td ID="MedicationAccount_1">[id number]</td><td ID="MedicationNpid_1">[id number]</td><td ID="MedicationAuthorFirstName_1">Ezequiel</td><td ID="MedicationAuthorLastName_1">Geoff</td><td ID="MedicationTaxonomyCode_1">[id number]</td><td ID="MedicationTaxonomyDesc_1">Nurse Practitioner</td><td ID="MedicationPhoneNumber_1">[phone]</td> [facility] Aimovig Aimovig 07/06/2020 12:00:00 AM EDT SUBCUTANEOUS active MEDENT ([facility]) Ketorolac (Toradol) Inj 30MG/ML 06/15/2020 12:00:00 AM EDT completed MEDENT ([facility]) Medication administered onsite Escitalopram 5 MG Oral Tablet [Lexapro] Lexapro 05/04/2020 12: 00:00 AM EST 5 mg by mouth completed <td ID="Me dicationRxNorm_2">[id number]</td><td ID="MedicationMedication_2">Lexapro</td><td ID="MedicationRoute_2">by mouth</td><td ID="MedicationRouteConcept_2">J35166</td><td ID="MedicationStartDate_2">05/04/2020</td><td ID="MedicationStopDate_2">06/03/2020</td><td ID="MedicationDosageFrequency_2">once a day</td><td ID="MedicationDuration_2">30</td><td ID="MedicationFormulaStrength_2">5 mg</td><td ID="MedicationDosageForm_2">tablet</td><td ID="MedicationDosageFormCode_2"></td><td ID="MedicationDosageDescription_2"></td><td ID="MedicationMedicationId_2">[id number]</td><td ID="MedicationAccount_2">[id number]</td><td ID="MedicationNpid_2">[id number]</td><td ID="MedicationAuthorFirstName_2">Ezequiel</td><td ID="MedicationAuthorLastName_2">Geoff</td><td ID="MedicationTaxonomyCode_2">[id number]</td><td ID="MedicationTaxonomyDesc_2">Nurse Practitioner</td><td ID="MedicationPhoneNumber_2">[phone]</td> [facility] ([facility]) valacyclovir 500 MG Oral Tablet [Valtrex] Valtrex 500 MG Marisabel trex 500 MG 04/27/2020 12:00:00 AM EST 1.0 {tablet} suspended Valtrex 500 MG eCW1 ([facility]) valacyclovir 500 MG Oral Tablet [Valtrex] Valtrex 500 MG Marisabel trex 500 MG 04/27/2020 12:00:00 AM EST 1.0 {tablet} active Valtrex 500 MG eCW1 ([facility]) valacyclovir 500 MG Oral Tablet [Valtrex] Valtrex 500 MG Marisabel trex 500 MG 04/27/2020 12:00:00 AM EST 1.0 {tablet} suspended Valtrex 500 MG eCW1 ([facility]) valacyclovir 500 MG Oral Tablet [Valtrex] Valtrex 500 MG Marisabel trex 500 MG 04/27/2020 12:00:00 AM EST 1.0 {tablet} active Valtrex 500 MG eCW1 ([facility]) valacyclovir 500 MG Oral Tablet [Valtrex] Valtrex 500 MG Marisabel trex 500 MG 04/27/2020 12:00:00 AM EST 1.0 {tablet} suspended Valtrex 500 MG eCW1 ([facility]) valacyclovir 500 MG Oral Tablet [Valtrex] Valtrex 500 MG Marisabel trex 500 MG 04/27/2020 12:00:00 AM EST 1.0 {tablet} suspended Valtrex 500 MG eCW1 ([facility]) valacyclovir 500 MG Oral Tablet [Valtrex] Valtrex 500 MG Marisabel trex 500 MG 04/27/2020 12:00:00 AM EST 1.0 {tablet} suspended Valtrex 500 MG eCW1 ([facility]) valacyclovir 500 MG Oral Tablet [Valtrex] Valtrex 500 MG Marisabel trex 500 MG 04/27/2020 12:00:00 AM EST 1.0 {tablet} suspended Valtrex 500 MG eCW1 ([facility]) valacyclovir 500 MG Oral Tablet [Valtrex] Valtrex 500 MG Marisabel trex 500 MG 04/27/2020 12:00:00 AM EST 1.0 {tablet} suspended Valtrex 500 MG eCW1 ([facility]) Sumatriptan 100 MG Oral Tablet Sumatriptan Succinate 1 00 MG Sumatriptan Succinate 100 MG 04/04/2020 12:00:00 AM EST a ctive Sumatriptan Succinate 100 MG eCW1 ([facility]) Metronidazole 500 MG Oral Tablet Metronidazole 500 MG 2020 12:00:00 AM EST 1.0 {tablet} active Metronidazo le 500 MG eCW1 ([facility]) Metronidazole 500 MG Oral Tablet Metronidazole 500 MG 2020 12:00:00 AM EST 1.0 {tablet} suspended Metronid azole 500 MG eCW1 ([facility]) Metronidazole 500 MG Oral Tablet Metronidazole 500 MG 2020 12:00:00 AM EST 1.0 {tablet} active Metronidazo le 500 MG eCW1 ([facility]) Metronidazole 500 MG Oral Tablet Metronidazole 500 MG 2020 12:00:00 AM EST 1.0 {tablet} active Metronidazo le 500 MG eCW1 ([facility]) Metronidazole 500 MG Oral Tablet Metronidazole 500 MG 2020 12:00:00 AM EST 1.0 {tablet} suspended Metronid azole 500 MG eCW1 ([facility]) Acetaminophen 325 MG / butalbital 50 MG / Caffeine 40 MG Oral Capsule [Esgic] Esgic 50-325-40 MG Esgic 50-325-40 MG 02/28/2020 12:00:00 AM EST active Esgic 50-325-40 MG eCW1 ([facility]) Acetaminophen 325 MG / butalbital 50 MG / Caffeine 40 MG Oral Capsule [Esgic] Esgic 50-325-40 MG Esgic 50-325-40 MG 02/28/2020 12:00:00 AM EST active Esgic 50-325-40 MG eCW1 ([facility]) Acetaminophen 325 MG / butalbital 50 MG / Caffeine 40 MG Oral Capsule [Esgic] Esgic 50-325-40 MG Esgic 50-325-40 MG 02/28/2020 12:00:00 AM EST active Esgic 50-325-40 MG eCW1 ([facility]) Acetaminophen 325 MG / butalbital 50 MG / Caffeine 40 MG Oral Capsule [Esgic] Esgic 50-325-40 MG Esgic 50-325-40 MG 02/28/2020 12:00:00 AM EST active Esgic 50-325-40 MG eCW1 ([facility]) Acetaminophen 325 MG / butalbital 50 MG / Caffeine 40 MG Oral Capsule [Esgic] Esgic 50-325-40 MG Esgic 50-325-40 MG 02/28/2020 12:00:00 AM EST active Esgic 50-325-40 MG eCW1 ([facility]) Acetaminophen 325 MG / butalbital 50 MG / Caffeine 40 MG Oral Capsule [Esgic] Esgic 50-325-40 MG Esgic 50-325-40 MG 02/28/2020 12:00:00 AM EST active Esgic 50-325-40 MG eCW1 ([facility]) Acetaminophen 325 MG / butalbital 50 MG / Caffeine 40 MG Oral Capsule [Esgic] Esgic 50-325-40 MG Esgic 50-325-40 MG 02/28/2020 12:00:00 AM EST active Esgic 50-325-40 MG eCW1 ([facility]) Amoxicillin 875 MG Oral Tablet amoxicillin (AMOXIL) 87 5 MG tablet amoxicillin (AMOXIL) 875 MG tablet 11/06/2019 12:00:00 AM EDT aborted TAKE ONE TABLET BY MOUTH EVERY TWELVE HOURS FOR 10 DAYS [facility] Aspirin 81 MG Delayed Release Oral Tablet aspirin EC 8 1 MG EC tablet aspirin EC 81 MG EC tablet 81 mg Oral aborted Take 81 mg by mouth daily [facility] Vit-Fe Fumarate-FA ( 1+1 PO) drug or medication Oral aborted Take by mouth [facility] Insurance Providers Payer name Policy type / Coverage type Policy ID Covered green party ID Covered green party's relationship to banda Policy Banda Plan Information [facility] Comm Plan Medicaid F [id number] SELF [id number] Managed Care - Community Plan [facility] P [id number] S [id number] Medicaid S [id number] S [id number] [employer] COMMUNITY PLAN MCDHMO [id number] SP [id number] Managed Care - Community Plan [facility] P [id number] S [id number] Medicaid S [id number] S [id number] [facility] I [id number] Self [id number] [facility] I [id number] Self [id number] [facility] I [id number] Self [id number] MEDICAID M [id number] Self [id number] UN COMMUNITY PLAN MCDHMO [id number] SP [id number] UN COMMUNITY PLAN MCDHMO [id number] SP [id number] Medicaid S [id number] S [id number] UN COMMUNITY PLAN MCDHMO [id number] SP [id number] Managed Care - Community Plan [facility] P [id number] S [id number] UN COMMUNITY PLAN MCDHMO [id number] SP [id number] [facility] COMMUNITY PLAN MCDHMO [id number] SP [id number] [facility] COMMUNITY PLAN MCDHMO [id number] SP [id number] [facility] COMMUNITY PLAN MCDHMO [id number] SP [id number] [facility] Health Maintenance Organization (HMO) [id number] Self [id number] UN COMMUNITY PLAN MCDHMO [id number] SP [id number] Managed Care - [facility] Community Plan P [id number] S [id number] UN COMMUNITY PLAN MCDHMO [id number] SP [id number] [facility] COMMUNITY PLAN MCDHMO [id number] SP [id number] Medicaid S [id number] S [id number] Managed Care - [facility] Community Plan P [id number] S [id number] [facility] MEDICAID [id number] Paula [id number] Managed Care - [facility] Community Plan P [id number] S [id number] [facility] MEDICAID [id number] [employer] COMMUNITY PLAN XIX [id number] 18 [id number] [facility] Communty Plan Medicaid [id number] Self [id number] LTAC, located within [facility] Community Plan Commercial [id number] [id number] [id number] Self [id number] [facility] Medigap Part B [id number] Self [id number] [facility] [place] [id number] 18 [id number] [facility] [place] Plan [facility] Part B [id number] Self [id number] LTAC, located within [facility] Community Plan Commercial [id number] Self [id number] [facility] [place] PLAN [id number] 18 [id number] [facility] [id number] 18 [id number] [facility]) O [id number] S [id number] [facility] [id number] Self [id number] [facility] Commercial [id number] Self [id number] [facility] [place] [id number] 18 [id number] [employer] COMMUNITY PLAN MCDHMO [id number] SP [id number] [facility] [id number] Self [id number] [facility] Commercial [id number] Self [id number] [facility](MCAID) O [id number] S [id number] UNHC AMERICHOICE XIX -HMO [id number] 18 [id number] [facility] O [id number] S [id number] MEDICAID - CLINIC [id number] UNHC AMERICHOICE HMO [id number] 18 [id number] MEDICAID-O/P [id number] X [facility] Commercial [id number] Self [facility] P UNAVAILABLE S UNAVAILA BLE Medicaid S [id number] S [id number] [place] PLAN [id number] SP [id number] [facility] COMMUNTY PLAN [id number] 18 [id number] O BLUE [id number] SP [id number] UNHC COMMUNITY PLAN MCDO [id number] SP [id number] [place] [id number] SP [id number] UNHC COMMUNITY PLAN XIX [id number] 18 [id number] [facility] O [id number] S [id number] [facility] COMMUNITY PLAN [id number] 18 [id number] UNHC AMERICHOICE XIX -HMO [id number] 18 [id number] UNHC AMERICHOICE XIX -HMO [id number] 18 [id number] UNHC AMERICHOICE XIX -HMO [id number] 18 [id number] UNHC COMMUNITY PLAN XIX [id number] 18 [id number] [facility] COMMUNTY PLAN [id number] 18 [id number] [facility](MCAID) O [id number] S [id number] LTAC, located within [facility] Community Plan Commercial [id number] Self [id number] [facility] Communty Plan Medicaid [id number] Self [id number] LTAC, located within [facility] Community Plan Commercial [id number] Self [id number] [facility] Communty Plan Medicaid [id number] Self [id number] LTAC, located within [facility] Community Plan Commercial [id number] Self [id number] Community [facility]althty Plan Medicaid [id number] 0.7897.0 Self [id number] LTAC, located within [facility] Community Plan Commercial [id number] Self [id number] Community Healthty Plan Medicaid [id number] Self [id number] Community Healthty Plan Medicaid [id number] 0.7897.0 Self [id number] LTAC, located within [facility] Community Plan Commercial [id number] [id number] Self [id number] Community Healthty Plan Medicaid [id number] 0.7897.0 Self [id number] LTAC, located within [facility] Community Plan Commercial [id number] Self [id number] [facility] HEA [id number] S 1 [id number] UNAVAILABLE UNAVAILA BLE [facility] HEA [id number] S 1 [id number] LTAC, located within [facility] Community Plan Commercial [id number] Self [id number] Community Healthty Plan Medicaid [id number] Self [id number] Problems, Conditions, and Diagnoses Code Display Name Description Problem Type Effective Dates Data Source(s) R55 [facility] and collapse Syncope and collapse Diagnosis 10/13/2020 09:32:45 AM EDT [facility] E66.01 Morbid (severe) obesity due to excess ca lories Morbid (severe) obesity due to excess ca Diagnosis 10/13/2020 09:32:45 AM EDT [facility] R07.89 Other chest pain Other chest pain Diagnosis 10/13/2020 09 :32:45 AM EDT [facility] Z1331 Encounter for screening for depression E ncounter for screening for depression Diagnosis 06/15/2020 02:04:00 PM EDT [facility] M545 Low back pain Low back pain Diagnosis 06/15/2020 02:04:00 PM EDT [facility] M7071 Other bursitis of hip, right hip Other bursitis of hip, right hip Diagnosis 06/15/2020 02:04:00 PM EDT [facility] shingles with occular involvement shingles with occula r involvement Diagnosis 03/02/2020 10:20:00 AM [facility] F14.20 Cocaine dependence, uncomplicated Stimul ant Use Disorder. 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 Problem 11/03/2020 12:00:00 AM EDT eCW1 ([facility]) R55 Syncope Syncope [id number] 10/13/2020 12:00:00 AM ED T [facility] Z68.41 Body mass index 40+ - severely obese Bod y mass index (BMI) 40.0-44.9, adult Problem 03/31/2020 12:00:00 AM EST eCW1 ([facility]) O99.213 Obesity complicating , third tr imester Obesity complicating in third trimester Problem 03/23/2020 12:00:00 AM EST eCW1 ([facility]) O99.212 [id number] Obesity complicating in second trimester Problem 12/07/2019 12:00:00 AM EDT eCW1 ([facility]) Z34.80 care Supervision of other normal P james 12/07/2019 12:00:00 AM EDT eCW1 ([facility]) Surgeries/Procedures Procedure Description Date Indications Data Source(s) OFFICE OUTPATIENT VISIT 15 MINUTES 12/26/2020 12:00:[address] [facility]) Extended Individual Psychotherapy - 45 min 11/17/2020 12:00:00 AM EDT - 11/17/2020 12:00:00 AM EDT [facility] ([facility]) Extended Individual Psychotherapy - 45 min 12:00:00 AM EDT [facility] ([facility]) ECG ROUTINE ECG W/LEAST 12 LDS W/I&R <td>POCT AMB EKG</td><td>Routine</td><td>10/13/2020 10:22 AM EDT</td><td> Other chest pain Syncope, unspecified syncope type</td><td> </td> 10/13/2020 10:22:00 AM EDT Syncope, unspecified syncope typeOther chest pain [facility] Syncope, unspecified syncope type Other chest pain Extended Individual Psychotherapy - 45 min 09/18/2020 12:00:00 AM EDT - 09/18/2020 12:00:00 AM EDT [facility] ([facility]) Extended Individual Psychotherapy - 45 min 12:00:00 AM EDT [facility] ([facility]) Extended Individual Psychotherapy - 45 min 08/17/2020 12:00:00 AM EDT - 08/17/2020 12:00:00 AM EDT [facility] ([facility]) Extended Individual Psychotherapy - 45 min 12:00:00 AM EDT [facility] ([facility]) Extended Individual Psychotherapy - 45 min 07/25/2020 12:00:00 AM EDT - 07/25/2020 12:00:00 AM EDT [facility] ([facility]) Extended Individual Psychotherapy - 45 min 12:00:00 AM EDT [facility] ([facility]) Extended Individual Psychotherapy - 45 min 07/07/2020 12:00:00 AM EDT - 07/07/2020 12:00:00 AM EDT [facility] ([facility]) Extended Individual Psychotherapy - 45 min 12:00:00 AM EDT [facility] ([facility]) OFFICE OUTPATIENT VISIT 15 MINUTES 06/29/2020 12:00:00 AM EDT [facility] ([facility]) Extended Individual Psychotherapy - 45 min 06/20/2020 12:00:00 AM EDT - 06/20/2020 12:00:00 AM EDT [facility] ([facility]) Extended Individual Psychotherapy - 45 min 12:00:00 AM EDT [facility] ([facility]) BLOOD COUNT COMPLETE AUTO&AUTO DIFRNTL WBC COUNT <td>C BC AND DIFFERENTIAL</td><td>Routine</td><td>06/19/2020</td><td></td><td> </td> 06/19/2020 12:00:00 AM EDT [facility] BASIC METABOLIC PANEL CALCIUM TOTAL <td>BASIC METABOLI C PANEL</td><td>Routine</td><td>06/19/2020</td><td></td><td> </td> 06/19/2020 12:00:00 AM EDT [facility] Brief Emotional/Behav Assessment W/ Scoring Doc Per Standard Inst 06/15/2020 12:00:00 AM EDT [facility] ([facility]) OFFICE OUTPATIENT VISIT 15 MINUTES 06/15/2020 12:00:00 AM EDT [facility] ([facility]) MHC Telemed E/M Lvl 3--Est pt 06/01/2020 12:00:00 AM EDT - 06/01/2020 12:00:00 AM EDT [facility] ([facility]) MHC Telemed E/M Lvl 3--Est pt 06/01/2020 12:00:00 AM E DT [facility] ([facility]) Extended Individual Psychotherapy - 45 min 05/24/2020 12:00:00 AM EDT - 05/24/2020 12:00:00 AM EDT [facility] ([facility]) Extended Individual Psychotherapy - 45 min 12:00:00 AM EDT [facility] ([facility]) Extended Individual Psychotherapy - 45 min 05/09/2020 12:00:00 AM EST - 05/09/2020 12:00:00 AM EST [facility] ([facility]) Extended Individual Psychotherapy - 45 min 12:00:00 AM EST [facility] ([facility]) OFFICE OUTPATIENT VISIT 15 MINUTES 04/27 12:00:00 AM EST - 04/27/2020 12:00:00 AM EST [facility] ([facility]) OFFICE OUTPATIENT VISIT 15 MINUTES 04/27/2020 12:00:00 AM EST [facility] ([facility]) Extended Individual Psychotherapy - 45 min 04/25/2020 12:00:00 AM EST - 04/25/2020 12:00:00 AM EST [facility] ([facility]) Extended Individual Psychotherapy - 45 min 12:00:00 AM EST [facility] ([facility]) Extended Individual Psychotherapy - 45 min 04/11/2020 12:00:00 AM EST - 04/11/2020 12:00:00 AM EST [facility] ([facility]) Extended Individual Psychotherapy - 45 min 12:00:00 AM EST [facility] ([facility]) NONSTRESS TEST 03/31/2020 12:00:00 AM EST eCW1 ([facility]) Extended Individual Psychotherapy - 45 min 03/24/2020 12:00:00 AM EST - 03/24/2020 12:00:00 AM EST [facility] ([facility]) Extended Individual Psychotherapy - 45 min 12:00:00 AM EST [facility] ([facility]) NONSTRESS TEST 03/23/2020 12:00:00 AM EST eCW1 ([facility]) MHC Telemed E/M Lvl 3--Est pt 03/21/2020 12:00:00 AM EST - 03/21/2020 12:00:00 AM EST [facility] ([facility]) Psychotherapy ADD ON - 30 Minutes 03/21/2020 12:00:00 AM EST [facility] ([facility]) MHC Telemed E/M Lvl 3--Est pt 03/21/2020 12:00:[address] [facility] ([facility]) Extended Individual Psychotherapy - 45 min 03/17/2020 12:00:00 AM EST - 03/17/2020 12:00:00 AM EST [facility] ([facility]) Extended Individual Psychotherapy - 45 min 12:00:00 AM EST [facility] ([facility]) NONSTRESS TEST 03/16/2020 12:00:00 AM EST eCW1 ([facility]) NONSTRESS TEST 03/08/2020 12:00:00 AM EST eCW1 ([facility]) Extended Individual Psychotherapy - 45 min 03/06/2020 12:00:00 AM EST - 03/06/2020 12:00:00 AM EST [facility] ([facility]) Extended Individual Psychotherapy - 45 min 12:00:00 AM EST [facility] ([facility]) Nurse Visit Blood Pressure Check 02/28/2020 12:00:00 A M EST eCW1 ([facility]) Extended Individual Psychotherapy - 45 min 02/11/2020 12:00:00 AM EST - 02/11/2020 12:00:00 AM EST [facility] ([facility]) Extended Individual Psychotherapy - 45 min 0 12:00:00 AM EST [facility] ([facility]) OFFICE OUTPATIENT VISIT 15 MINUTES 01/24 12:00:00 AM EST - 01/25/2020 12:00:00 AM EST [facility] ([facility]) OFFICE OUTPATIENT VISIT 15 MINUTES 01/25/2020 12:00:00 AM EST [facility] ([facility]) Extended Individual Psychotherapy - 45 min 01/25/2020 12:00:00 AM EST - 01/25/2020 12:00:00 AM EST [facility] ([facility]) Extended Individual Psychotherapy - 45 min 0 12:00:00 AM EST [facility] ([facility]) Extended Individual Psychotherapy - 45 min 01/10/2020 12:00:00 AM EST - 01/10/2020 12:00:00 AM EST [facility] ([facility]) Extended Individual Psychotherapy - 45 min 0 12:00:00 AM EST [facility] ([facility]) OFFICE OUTPATIENT VISIT 15 MINUTES 12/29 12:00:00 AM EDT - 12/30/2019 12:00:00 AM EDT [facility] ([facility]) OFFICE OUTPATIENT VISIT 15 MINUTES 12/30/2019 12:00:00 AM EDT [facility] ([facility]) Brief Individual Psychotherapy - 30 min 12/16/2019 12:00:00 AM EDT - 12/16/2019 12:00:00 AM EDT [facility] ([facility]) Brief Individual Psychotherapy - 30 min 12/16/2019 12: 00:00 AM EDT [facility] ([facility]) MHC Telemed E/M Lvl 3--Est pt 12/02/2019 12:00:00 AM EDT - 12/02/2019 12:00:00 AM EDT [facility] ([facility]) Psychotherapy ADD ON - 30 Minutes 12/02/2019 12:00:00 AM EDT [facility] ([facility]) MHC Telemed E/M Lvl 3--Est pt 12/02/2019 12:00:00 AM E DT [facility] ([facility]) Extended Individual Psychotherapy - 45 min 11/30/2019 12:00:00 AM EDT - 11/30/2019 12:00:00 AM EDT [facility] ([facility]) Extended Individual Psychotherapy - 45 min 0 12:00:00 AM EDT [facility] ([facility]) Results ID Date Data Source [id number] 12/24/2020 04:05:00 PM EDT [facility] ([facility]) Name Value Range Interpretation Code Description Data Rema rce(s) Supporting Document(s) Laboratory test finding (navigational concept) 45.0 % 3 8.0-51.0 Normal (applies to non-numeric results) [facility] ([facility]) Laboratory test finding (navigational concept) 151 mg/dL 7 0-105 Above high normal [facility] ([facility]) Laboratory test finding (navigational concept) 134 meq/L 1 36-145 Below low normal [facility] ([facility]) Laboratory test finding (navigational concept) 5.5 meq/L 3 .5-5.1 Above high [facility] Laboratory test finding (navigational concept) 105 meq/L 9 8-109 Normal (applies to non-numeric results) [facility] ([facility]) Laboratory test finding (navigational concept) 4.5 mg/dL 4 .5-5.3 Normal (applies to non-numeric results) [facility] ([facility]) Laboratory test finding (navigational concept) 26.0 MM/L 2 3.0-27.0 Normal (applies to non-numeric results) [facility] ([facility]) Laboratory test finding (navigational concept) 26 mg/dL 8 -26 Normal (applies to non-numeric results) [facility] ([facility]) Laboratory test finding (navigational concept) 0.7 mg/dL 0 .6-1.3 Normal (applies to non-numeric results) [facility] ID Date Data Source [id number] 12/24/2020 03:45:00 PM EDT [facility] ([facility]) Name Value Range Interpretation Code Description Data Rema rce(s) Supporting Document(s) Lipase [Enzymatic activity/volume] in Serum or Plasma 102 U/L 73-393 Normal (applies to non-numeric results) [facility] ([facility]) <content>note:<nlbl:demographic_changed> </content>
<content></content> ID Date Data Source [id number] 12/24/2020 03:45:00 PM EDT [facility] ([facility]) Name Value Range Interpretation Code Description Data Rema rce(s) Supporting Document(s) Ast/Sgot 23 U/L 7-37 Normal (applies to non-numeric resul ts) [facility] ([facility]) Alkaline Phosphatase 77 U/L 45-117 Normal (applies to non-num prashanth results) [facility] ([facility]) Alt/SGPT 54 U/L 12-78 Normal (applies to non-numeric resul ts) [facility] ([facility]) Total Protein 7.2 GM/DL 6.4-8.2 Normal (applies to non-numeric re sults) [facility] ([facility]) Bilirubin,Total 0.4 mg/dL 0.2-1.0 Normal (applies to non-numeric results) [facility] ([facility]) Bilirubin,Direct Laboratory test result 0.0-0.2 Normal ( applies to non-numeric results) [facility] ([facility]) Albumin/Globulin Ratio 0.8 1.2-2.2 Below low normal [facility] ([facility]) Albumin 3.2 GM/DL 3.2-5.2 Normal (applies to non-numeric resul ts) [facility] ([facility]) ID Date Data Source [id number] 12/24/2020 03:45:00 PM EDT [facility] ([facility]) Name Value Range Interpretation Code Description Data Rema rce(s) Supporting Document(s) Venous Partial Pressure Co2 34.9 mmHg 38.0-50.0 Below low normal [facility] ([facility]) Venous PH 7.435 units 7.330-7.430 Above high normal [facility] ([facility]) Venous Partial Pressure O2 107.9 mmHg 30.0-50.0 Above high normal [facility] ([facility]) Venous Total Co2 24.0 meq/L 24.0-28.0 Normal (applies to non-numeric results) [facility] ([facility]) Venous Standard Hco3 23.9 meq/L Normal (applies to non-num prashanth results) [facility]) Venous Hco3 22.9 meq/L 23.0-27.0 Below low normal [facility] Venous Base Excess -0.7 Normal (applies to non-numer ic results) [facility] ([facility]) Venous O2 Saturation 98.2 % 60.0-80.0 Above high normal [facility] ID Date Data Source [id number] 12/24/2020 03:22:00 PM EDT [facility] ([facility]) Name Value Range Interpretation Code Description Data Rema rce(s) Supporting Document(s) White Blood Count 11.7 10 4.0-10.0 Above high normal [facility] ([facility]) Hemoglobin 14.5 g/dL 12.0-15.5 Normal (applies to non-numeric resul ts) [facility] ([facility]) Red Blood Count 4.96 10 4.00-5.40 Normal (applies to non-numeric results) [facility] ([facility]) Hematocrit 43.6 % 36.0-47.0 Normal (applies to non-numeric resul ts) [facility] Mean Corpuscular Volume 87.9 fl 80.0-96.0 Normal ( applies to non-numeric results) [facility]) Mean Corpuscular HGB Conc 33.3 g/dL 32.0-36.5 Normal (applies to non-numeric results) [facility] ([facility]) Mean Corpuscular Hemoglobin 29.2 pg 27.0-33.0 Norm al (applies to non-numeric results) [facility] ([facility]) Red Cell Distribution Width 14.1 % 11.5-14.5 Norm al (applies to non-numeric results) [facility] ([facility]) Platelet Count, Automated Laboratory test result 150-450 Normal (applies to non- numeric results) [facility] ([facility]) Small plt clumps seen on slide Lymph % 12.1 % 24.0-44.0 Below low normal [facility] ( [facility]) Neutrophils % 85.1 % 36.0-66.0 Above high normal [facility] NT ([facility]) Eos % 0.0 % 0.0-3.0 Normal (applies to non-numeric resul ts) [facility] ([facility]) Weber % 1.9 % 2.0-8.0 Below low normal [facility] ([facility]) Immature Granulocyte % 0.6 % 0-3.0 Normal (applies to non-n umeric results) [facility] ([facility]) Baso % 0.3 % 0.0-1.0 Normal (applies to non-numeric resul ts) [facility] ([facility]) Nucleated Red Blood Cell % 0.0 % 0-0 Normal (applies to n on-numeric results) [facility] ([facility]) Neutrophils # 10.0 10 1.5-8.5 Above high normal [facility] NT ([facility]) Lymph # 1.4 10 1.5-5.0 Below low normal [facility] ( [facility]) Weber # 0.2 10 0.0-0.8 Normal (applies to non-numeric resul ts) [facility] ([facility]) Eos # 0.0 10 0.0-0.5 Normal (applies to non-numeric resul ts) [facility] ([facility]) Baso # 0.0 10 0.0-0.2 Normal (applies to non-numeric resul ts) [facility] ([facility]) ID Date Data Source [id number] 12/24/2020 03:22:00 PM EDT [facility] ([facility]) Name Value Range Interpretation Code Description Data Rema rce(s) Supporting Document(s) Fibrin D-dimer FEU [Mass/volume] in Platelet poor plasma 552.50 ng/mL Above high normal [facility] ([facility]) ID Date Data Source [id number] 12/24/2020 01:58:00 PM EDT [facility] Name Value Range Interpretation Code Description Data Rema rce(s) Supporting Document(s) SARS-CoV-2 (COVID 19) NEGATIVE - SARS-CoV-2 (COVID19) [facility] This lab was ordered by [facility] a nd reported by [facility]. ID Date Data Source [id number] 12/24/2020 01:58:00 PM EDT [facility] ([facility]) Name Value Range Interpretation Code Description Data Rema rce(s) Supporting Document(s) Respiratory Panel Laboratory test result [facility] ([facility]) This respiratory PCR panel detects Influ [...] SARS-CoV-2 (COVID 19) NEGATIVE - SARS-CoV-2 (COVID19) ID Date Data Source [id number] 12/18/2020 04:19:00 PM EDT [facility] ([facility]) Name Value Range Interpretation Code Description Data Rema rce(s) Supporting Document(s) Laboratory test finding (navigational concept) 111 mg/dL 7 0-105 Above high normal [facility] ([facility]) Laboratory test finding (navigational concept) 47.0 % 3 8.0-51.0 Normal (applies to non-numeric results) [facility]) Laboratory test finding (navigational concept) 4.1 meq/L 3 .5-5.1 Normal (applies to non-numeric results) [facility]) Laboratory test finding (navigational concept) 139 meq/L 1 36-145 Normal (applies to non-numeric results) [facility] ([facility]) Laboratory test finding (navigational concept) 4.5 mg/dL 4 .5-5.3 Normal (applies to non-numeric results) [facility] ([facility]) Laboratory test finding (navigational concept) 103 meq/L 9 8-109 Normal (applies to non-numeric results) [facility] ([facility]) Laboratory test finding (navigational concept) 26.0 MM/L 2 3.0-27.0 Normal (applies to non-numeric results) [facility] ([facility]) Laboratory test finding (navigational concept) 0.8 mg/dL 0 .6-1.3 Normal (applies to non-numeric results) [facility] ([facility]) Laboratory test finding (navigational concept) 10 mg/dL 8 -26 Normal (applies to non-numeric results) [facility] ([facility]) ID Date Data Source [id number] 12/18/2020 04:07:00 PM EDT [facility] Name Value Range Interpretation Code Description Data Rema rce(s) Supporting Document(s) SARS-CoV-2 (COVID 19) NEGATIVE - SARS-CoV-2 (COVID19) [facility] This lab was ordered by [facility] a nd reported by [facility]. ID Date Data Source [id number] 12/18/2020 04:07:00 PM EDT [facility] ([facility]) Name Value Range Interpretation Code Description Data Rema rce(s) Supporting Document(s) Respiratory Panel Laboratory test result [facility] ([facility]) This respiratory PCR panel detects Influ [...] RESPIRATORY SYNCYTIAL VIRUS ID Date Data Source [id number] 12/18/2020 03:24:00 PM EDT [facility] ([facility]) Name Value Range Interpretation Code Description Data Rema rce(s) Supporting Document(s) White Blood Count 8.9 10 4.0-10.0 Normal (applies to non-numeri c results) [facility] ([facility]) Hemoglobin 15.3 g/dL 12.0-15.5 Normal (applies to non-numeric resul ts) [facility] ([facility]) Red Blood Count 5.26 10 4.00-5.40 Normal (applies to non-numeric results) [facility] ([facility]) Hematocrit 45.8 % 36.0-47.0 Normal (applies to non-numeric resul ts) [facility] ([facility]) Mean Corpuscular Volume 87.1 fl 80.0-96.0 Normal ( applies to non-numeric results) [facility] ([facility]) Mean Corpuscular Hemoglobin 29.1 pg 27.0-33.0 Norm al (applies to non-numeric results) [facility] ([facility]) Mean Corpuscular HGB Conc 33.4 g/dL 32.0-36.5 Normal (applies to non-numeric results) [facility] ([facility]) Platelet Count, Automated Laboratory test result 150-450 Normal (applies to non- numeric results) [facility] ([facility]) Platelet count invalid due to platelet c lumping. Suggest ordering platelet blue test to confirm clumping is not due to EDTA. Red Cell Distribution Width 14.1 % 11.5-14.5 Norm al (applies to non-numeric results) [facility] ([facility]) Neutrophils % 75.9 % 36.0-66.0 Above high normal [facility] ([facility]) Lymph % 16.4 % 24.0-44.0 Below low normal [facility] ( [facility]) Eos % 3.4 % 0.0-3.0 Above high normal [facility] ([facility]) Weber % 3.5 % 2.0-8.0 Normal (applies to non-numeric resul ts) [facility] ([facility]) Immature Granulocyte % 0.2 % 0-3.0 Normal (applies to non-n umeric results) [facility] ([facility]) Baso % 0.6 % 0.0-1.0 Normal (applies to non-numeric resul ts) [facility] ([facility]) Nucleated Red Blood Cell % 0.0 % 0-0 Normal (applies to n on-numeric results) [facility] ([facility]) Neutrophils # 6.7 10 1.5-8.5 Normal (applies to non-numeric re sults) [facility] ([facility]) Lymph # 1.5 10 1.5-5.0 Normal (applies to non-numeric resul ts) [facility] ([facility]) Weber # 0.3 10 0.0-0.8 Normal (applies to non-numeric resul ts) [facility] ([facility]) Baso # 0.1 10 0.0-0.2 Normal (applies to non-numeric resul ts) [facility] ([facility]) Eos # 0.3 10 0.0-0.5 Normal (applies to non-numeric resul ts) [facility] ([facility]) ID Date Data Source [id number] 12/04/2020 08:04:00 PM EDT [facility] ([facility]) Name Value Range Interpretation Code Description Data Rema rce(s) Supporting Document(s) White Blood Count 9.7 10 4.0-10.0 Normal (applies to non-numeri c results) [facility] ([facility]) Red Blood Count 4.89 10 4.00-5.40 Normal (applies to non-numeric results) [facility] ([facility]) Hematocrit 42.0 % 36.0-47.0 Normal (applies to non-numeric resul ts) [facility] ([facility]) Hemoglobin 14.2 g/dL 12.0-15.5 Normal (applies to non-numeric resul ts) [facility] ([facility]) Mean Corpuscular HGB Conc 33.8 g/dL 32.0-36.5 Normal (applies to non-numeric results) [facility] ([facility]) Mean Corpuscular Volume 85.9 fl 80.0-96.0 Normal ( applies to non-numeric results) [facility] ([facility]) Mean Corpuscular Hemoglobin 29.0 pg 27.0-33.0 Norm al (applies to non-numeric results) [facility] ([facility]) Red Cell Distribution Width 13.4 % 11.5-14.5 Norm al (applies to non-numeric results) [facility] ([facility]) Platelet Count, Automated 209 10 150-450 Normal (applies to non-numeric results) [facility] ([facility]) Neutrophils % 81.9 % 36.0-66.0 Above high normal [facility] ([facility]) Weber % 4.8 % 2.0-8.0 Normal (applies to non-numeric resul ts) [facility] ([facility]) Eos % 1.2 % 0.0-3.0 Normal (applies to non-numeric resul ts) [facility] ([facility]) Lymph % 11.0 % 24.0-44.0 Below low normal [facility] ( [facility]) Baso % 0.7 % 0.0-1.0 Normal (applies to non-numeric resul ts) [facility] ([facility]) Immature Granulocyte % 0.4 % 0-3.0 Normal (applies to non-n umeric results) [facility] ([facility]) Nucleated Red Blood Cell % 0.0 % 0-0 Normal (applies to n on-numeric results) [facility] ([facility]) Neutrophils # 7.9 10 1.5-8.5 Normal (applies to non-numeric re sults) [facility] ([facility]) Lymph # 1.1 10 1.5-5.0 Below low normal [facility] ( [facility]) Weber # 0.5 10 0.0-0.8 Normal (applies to non-numeric resul ts) [facility] ([facility]) Baso # 0.1 10 0.0-0.2 Normal (applies to non-numeric resul ts) [facility] ([facility]) Eos # 0.1 10 0.0-0.5 Normal (applies to non-numeric resul ts) [facility] ([facility]) ID Date Data Source [id number] 12/04/2020 08:04:00 PM EDT [facility] ([facility]) Name Value Range Interpretation Code Description Data Rema rce(s) Supporting Document(s) Glucose, Fasting 104 mg/dL 70-100 Above high normal [facility] Glomerular Filtration Rate Laboratory test result Normal (applies to non- numeric results) [facility] ([facility]) <content>Units are mL/min/1.73 m2</content>
<content></content>
<content>Chronic Kidney Disease Staging per NKF:</content>
<content></content>
<content>Stage I & II GFR >=60 Normal to Mildly Decreased</content>
<content>Stage III GFR 30- 59 Moderately Decreased</content>
<content>Stage IV GFR 15-29 Severely Decreased</content>
<content>Stage V GFR <15 Very Little GFR Left</content>
<content>ESRD GFR <15 on [employer]FU[employer]S TECH[employer]Y DEVELOPMENT MANAGER</content>
<content></content> Blood Urea Nitrogen 10 mg/dL 7-18 Normal (applies to non-nume zeny results) [facility] ([facility]) Creatinine For GFR 0.91 mg/dL 0.55-1.30 Normal (applies to non -numeric results) [facility] ([facility]) Sodium Level 142 meq/L 136-145 Normal (applies to non-numeric res ults) [facility]) Potassium Serum 3.8 meq/L 3.5-5.1 Normal (applies to non-numeric results) [facility] ([facility]) Carbon Dioxide Level 26 meq/L 21-32 Normal (applies to non-num prashanth results) [facility] ([facility]) Chloride Level 108 meq/L 98-107 Above high normal [facility] ([facility]) Anion Gap 8 meq/L 8-16 Normal (applies to non-numeric resul ts) [facility] ([facility]) Alt/SGPT 34 U/L 12-78 Normal (applies to non-numeric resul ts) [facility] ([facility]) Calcium Level 9.1 mg/dL 8.5-10.1 Normal (applies to non-numeric re sults) [facility] ([facility]) Ast/Sgot 21 U/L 7-37 Normal (applies to non-numeric resul ts) [facility] ([facility]) Bilirubin,Total 0.5 mg/dL 0.2-1.0 Normal (applies to non-numeric results) [facility] ([facility]) Alkaline Phosphatase 89 U/L 45-117 Normal (applies to non-num prashanth results) [facility] ([facility]) Albumin/Globulin Ratio 0.9 1.2-2.2 Below low normal [facility] ([facility]) Total Protein 7.5 GM/DL 6.4-8.2 Normal (applies to non-numeric re sults) [facility] ([facility]) Albumin 3.5 GM/DL 3.2-5.2 Normal (applies to non-numeric resul ts) [facility] ([facility]) ID Date Data Source [id number] 12/04/2020 08:04:00 PM EDT [facility] ([facility]) Name Value Range Interpretation Code Description Data Rema rce(s) Supporting Document(s) CPK Creatine Phosphokinase 72 U/L 26-192 [place] l (applies to non-numeric results) [facility] ([facility]) CK-MB Value Mass 1.5 ng/mL Normal (applies to non-numeric results) [facility] ([facility]) MB/CK Relative Index 2.08 Normal (applies to non-num prashanth results) [facility] ([facility]) <content>DIAGNOSIS CRITERIA</content>
<content>MMB ng/ml Relative Index (RI)</content>
<content>NON-AMI < or = 5 N/A</content>
<content>RAYA ZONE > 5 < or = 4</content>
<content>AMI > 5 > 4</content>
<content></content> Troponin I Laboratory test result Normal (applies to non-n umeric results) [facility] ([facility]) <content>Troponin I Reference Interval f or Siemens [place] LOCI:</content>
<content></content>
<content>99th Percentile= 0.00-0.045 ng/ml</content>
<content></content>
<content>Risk Stratification:</content>
<content><= 0.10 ng/ml Decreased Risk for Adverse Clinical</content>
<content>Events.</content>
<content>0.10-1.50 ng/ml Increased Risk for Adverse Clinical</content>
<content>Events. Evaluation of additional</content>
<content>criterion and/or repeat testing in 2-6</content>
<content>hours is suggested to rule out myocardial</content>
<content>damage.</content>
<content>>= 1.50 ng/ml Indicative of Myocardial Injury.</content>
<content></content> ID Date Data Source [id number] 12/04/2020 05:40:00 PM EDT [facility] Name Value Range Interpretation Code Description Data Rema rce(s) Supporting Document(s) SARS-CoV-2 (COVID 19) NEGATIVE - SARS-CoV-2 (COVID19) [facility] This lab was ordered by [facility] a nd reported by [facility]. ID Date Data Source [id number] 12/04/2020 05:40:00 PM EDT [facility] ([facility]) Name Value Range Interpretation Code Description Data Rema rce(s) Supporting Document(s) Respiratory Panel Laboratory test result [facility] ([facility]) This respiratory PCR panel detects Influ [...] RESPIRATORY SYNCYTIAL VIRUS ID Date Data Source [id number] 10/21/2020 10:52:00 AM EDT [facility] ([facility]) Name Value Range Interpretation Code Description Data Rema rce(s) Supporting Document(s) Centromere protein B Ab [Units/volume] in Serum Laboratory test result 0.0-0.9 Normal (applies to non-numeric results) [facility] ([facility]) Specimen Comment: Test(s) [id number] BIOMETRY TEACHER Ab (RDL) Specimen Comment: was developed and its performance characteristics Specimen Comment: determined by [facility]. It has not been cleared or approved Specimen Comment: by the Food and Drug Administration. [place] extractable nuclear Ab [Units/volume] in Serum Laboratory test result Normal (applies to non-numeric results) [facility] ([facility]) <content>Negative: <20 </content>
<content>Weak Positive: 20 - 39</content>
<content>Moderate Positive: 40 - 80</content>
<content>Strong Positive: > 80</content>
<content></content> U1 small nuclear ribonucleoprotein Ab [Presence] in Se rum Laboratory test result Normal (applies to non-numeric results) [facility] ([facility]) <content>Negative: <20 </content>
<content>Weak Positive: 20 - 39</content>
<content>Moderate Positive: 40 - 80</content>
<content>Strong Positive: > 80</content>
<content></content> ID Date Data Source [id number] 10/21/2020 10:52:00 AM EDT [facility]) Name Value Range Interpretation Code Description Data Rema rce(s) Supporting Document(s) Ssa Sjogrens A Laboratory test result 0.0-0.9 Normal (a pplies to non-numeric results) [facility] ([facility]) SSB Sjogrens B Laboratory test result 0.0-0.9 Normal (a pplies to non-numeric results) [facility] ([facility]) ID Date Data Source [id number] 10/21/2020 10:52:00 AM EDT [facility] ([facility]) Name Value Range Interpretation Code Description Data Rema rce(s) Supporting Document(s) Cardiolipin Igg Antibody 10 GPLU/mL 0-14 Normal (applies to non-numeric results) [facility]) <content>Negative: <15</con tent>
<content>Indeterminate: 15 - 20</content>
<content>Low-Med Positive: >20 - 80</content>
<content>High Positive: >80</content>
<content></content> Cardiolipin Iga Antibody Laboratory test result 0-11 Normal (applies to non- numeric results) [facility]) <content>Negative: <12</con tent>
<content>Indeterminate: 12 - 20</content>
<content>Low-Med Positive: >20 - 80</content>
<content>High Positive: >80</content>
<content></content> Cardiolipin Igm Antibody 9 MPLU/mL 0-12 Normal (applies to non-numeric results) [facility]) <content>Negative: <13</con tent>
<content>Indeterminate: 13 - 20</content>
<content>Low-Med Positive: >20 - 80</content>
<content>High Positive: >80</content>
<content></content> ID Date Data Source [id number] 10/21/2020 10:52:00 AM EDT [facility] ([facility]) Name Value Range Interpretation Code Description Data Rema rce(s) Supporting Document(s) Histone Ab [Presence] in Serum 3.1 units 0.0-0.9 Above high [place] [facility] ([facility]) <content>Negative <1.0</c ontent>
<content>Weak Positive 1.0 - 1.5</content>
<content>Moderate Positive 1.6 - 2.5</content>
<content>Strong Positive >2.5</content>
<content></content> DNA double strand Ab [Units/volume] in Serum Laboratory test res ult Normal (applies to non-numeric results) [facility] ([facility]) Specimen Comment: Test(s) [id number] BIOMETRY TEACHER Ab (RDL) Specimen Comment: was developed and its performance characteristics Specimen Comment: determined by [facility]. It has not been cleared or approved Specimen Comment: by the Food and Drug Administration. Renée Titer [employer] Pattern Laboratory test result [place] l (applies to non-numeric results) [facility] ([facility]) <content>Negative <1:80</content>
<content>Borderline 1:80</content>
<content>Positive >1:80</content>
<content>ICAP nomenclature: AC-0</content>
<content>For more information about Hep-2 cell patterns use</content>
<content>ANApatterns.org, the official website for the</content>
<content>International Consensus on Antinuclear Antibody (RENÉE)</content>
<content>Patterns (ICAP).</content>
<content>Performed at: - [facility]</content>
<content>[address] [place], [place] [address] [id number]</content>
<content>Urologist Physician: Pretty Swain MD, Phone: [phone]</content>
<content>Performed at: [facility] [place]</content>
<content>[address] [place] [id number]</content>
<content>Urologist Physician: Prabhakar Hudson MD, Phone: [phone]</content>
<content>Performed at: [facility]</content>
<content>[address] [place] [id number]</content>
<content>Urologist Physician: Bora Wu MD, Phone: [phone]</content>
<content></content> SCL-70 extractable nuclear Ab [Units/volume] in Serum Labora torpatsy test result 0.0-0.9 Normal (applies to non-numeric results) [facility]) Specimen Comment: Test(s) [id number] BIOMETRY TEACHER Ab (RDL) Specimen Comment: was developed and its performance characteristics Specimen Comment: determined by [facility]. It has not been cleared or approved Specimen Comment: by the Food and Drug Administration. ID Date Data Source [id number] 10/21/2020 10:52:00 AM EDT [facility] ([facility]) Name Value Range Interpretation Code Description Data Rema rce(s) Supporting Document(s) Beta-2 Glycoprotein I Loni Iga Laboratory test result 0-25 Normal (applies to non-numeric results) [facility]) Result Units: GPI IgA units . The reference interval reflects a 3SD or 99th percentile interval, which is thought to represent a potentially clinically significant result in accordance with the International Consensus Statement on the classification criteria for definitive antiphospholipid syndrome (APS). J Thromb Haem 2006;4:295-306. Beta-2 Glycoprotein I Loni Igg Laboratory test result 0-20 Normal (applies to non-numeric results) [facility] ([facility]) Result Units: GPI IgG units . The reference interval reflects a 3SD or 99th percentile interval, which is thought to represent a potentially clinically significant result in accordance with the International Consensus Statement on the classification criteria for definitive antiphospholipid syndrome (APS). J Thromb Haem 2006;4:295-306. Beta-2 Glycoprotein I Loni Igm 10 0-32 Normal (chrystal lies to non-numeric results) [facility] ([facility]) Result Units: GPI IgM units . The reference interval reflects a 3SD or 99th percentile interval, which is thought to represent a potentially clinically significant result in accordance with the International Consensus Statement on the classification criteria for definitive antiphospholipid syndrome (APS). J Thromb Haem 2006;4:295-306. ID Date Data Source [id number] 10/02/2020 12:55:00 PM EDT [facility] ([facility]) Name Value Range Interpretation Code Description Data Rema rce(s) Supporting Document(s) Creatine kinase [Enzymatic activity/volume] in Serum or Plasma 4 3 U/L 26-192 Normal (applies to non-numeric results) [facility] ([facility]) <content>note:<nlbl:demographic_changed> </content>
<content></content> Phosphate [Moles/volume] in Serum or Plasma 3.6 mg/dL 2.5- 4.9 Normal (applies to non-numeric results) [facility] ([facility] ) <content>note:<nlbl:demographic_changed> </content>
<content></content> Magnesium [Mass/volume] in Serum or Plasma 2.1 mg/dL 1.8-2 .4 Normal (applies to non-numeric results) [facility]) <content>note:<nlbl:demographic_changed> </content>
<content></content> Iron [Mass/volume] in Serum or Plasma 50 ug/dL 50-170 Normal (applies to non- numeric results) [facility] ([facility]) <content>note:<nlbl:demographic_changed> </content>
<content></content> Complement C3 [Mass/volume] in Serum or Plasma 148 mg/dL 9 0-180 Normal (applies to non-numeric results) [facility] ([facility]) <content>note:<nlbl:demographic_changed> </content>
<content></content> Thyrotropin [Units/volume] in Serum or Plasma 0.828 uIU/ML 0. 358-3.740 Normal (applies to non-numeric results) [facility] ([facility]) <content>note:<nlbl:demographic_changed> </content>
<content></content> Complement C4 [Mass/volume] in Serum or Plasma 23 mg/dL 1 0-40 Normal (applies to non-numeric results) [facility] ([facility] ) <content>note:<nlbl:demographic_changed> </content>
<content></content> Calcidiol [Mass/volume] in Serum or Plasma 24.7 ng/mL 30.0- 100.0 Below low normal [facility] ([facility]) <content>note:<nlbl:demographic_changed> </content>
<content></content> Cobalamin (Vitamin B12) [Mass/volume] in Serum or Plasma 710 pg/ mL 247-911 Normal (applies to non-numeric results) [facility] ([facility]) VITAMIN B12 NORMAL RANGE NORMAL 247 - 911 PG/ML INDETERMINATE 211 - 246 PG/ML DEFICIENT LESS THAN 211 PG/ML C reactive protein [Mass/volume] in Serum or Plasma by High sensitivity method 1.67 mg/dL 0.00-0.30 Above high normal [facility] ([facility]) <content>note:<nlbl:demographic_changed> </content>
<content></content> ID Date Data Source [id number] 10/02/2020 12:54:00 PM EDT [facility] ([facility]) Name Value Range Interpretation Code Description Data Rema rce(s) Supporting Document(s) Hexagonal Phase Phospholipid 0 sec 0-11 Normal (appl ies to non-numeric results) [facility] ([facility]) Laboratory test finding (navigational concept) Laboratory test r esult Normal (applies to non-numeric results) [facility] ([facility]) . Results do not indicate the presence of a Lupus Anticoagulant: abnormal high screening results (PTT-LA, dRVVT, mixing studies), may be due to medication (heparin, warfarin, aspirin), Factor inhibitors, anticardiolipin antibodies, or poor specimen integrity. Performed at: [address] [id number] Urologist Physician: Prabhakar Hudson MD, Phone: [phone] ID Date Data Source [id number] 10/02/2020 12:54:00 PM EDT [facility] ([facility]) Name Value Range Interpretation Code Description Data Rema rce(s) Supporting Document(s) Lupus Confirm Stago 1.27 0.00-1.20 Above high normal [facility] ([facility]) NORMALIZED RATIO IS EQUAL TO OR GREATER THAN 1.20 LA IS PRESENT. SPECIMEN WILL BE SENT TO [facility], [address] [facility] [place]. Andi Kim [id number] [facility] FOR CONFIRMATION. ID Date Data Source [id number] 10/02/2020 12:54:00 PM EDT [facility] ([facility]) Name Value Range Interpretation Code Description Data Rema rce(s) Supporting Document(s) PTT Lupus Type Anticoag Screen 1.4 0-1.2 Above high [place] [facility] ([facility]) RESULT IS 1.2 OR GREATER, FURTHER TESTING [...] a specific inhibitor. ID Date Data Source [id number] 10/02/2020 12:54:00 PM EDT [facility] ([facility]) Name Value Range Interpretation Code Description Data Rema rce(s) Supporting Document(s) Erythrocyte sedimentation rate by Westergren method 45 mm/hr 0-20 Above high normal [facility] ([facility]) Complement total hemolytic CH50 [Units/volume] in Seru m or Plasma Laboratory test result Normal (applies to non-numeric results) [facility] ([facility]) Age Male Female 1 - 30 days [...] out of range values. Performed at: - [facility] [address] [id number] Urologist Physician: Pretty Swain MD, Phone: [phone] ID Date Data Source [id number] 10/02/2020 12:54:00 PM EDT [facility] ([facility]) Name Value Range Interpretation Code Description Data Rema rce(s) Supporting Document(s) White Blood Count 7.8 10 4.0-10.0 Normal (applies to non-numeri c results) [facility]) Red Blood Count 4.54 10 4.00-5.40 Normal (applies to non-numeric results) [facility]) Hemoglobin 12.9 g/dL 12.0-15.5 Normal (applies to non-numeric resul ts) [facility]) Hematocrit 39.2 % 36.0-47.0 Normal (applies to non-numeric resul ts) [facility]) Mean Corpuscular Volume 86.3 fl 80.0-96.0 Normal ( applies to non-numeric results) [facility] ([facility]) Red Cell Distribution Width 13.3 % 11.5-14.5 Norm al (applies to non-numeric results) [facility] ([facility]) Mean Corpuscular HGB Conc 32.9 g/dL 32.0-36.5 Normal (applies to non-numeric results) [facility] ([facility]) Mean Corpuscular Hemoglobin 28.4 pg 27.0-33.0 Norm al (applies to non-numeric results) [facility] ([facility]) Platelet Count, Automated 212 10 150-450 Normal (applies to non-numeric results) [facility] ([facility]) Neutrophils % 59.4 % 36.0-66.0 Normal (applies to non-numeric re sults) [facility] ([facility]) Lymph % 27.9 % 24.0-44.0 Normal (applies to non-numeric resul ts) [facility] ([facility]) Weber % 6.4 % 2.0-8.0 Normal (applies to non-numeric resul ts) [facility] ([facility]) Baso % 0.4 % 0.0-1.0 Normal (applies to non-numeric resul ts) [facility] ([facility]) Immature Granulocyte % 0.3 % 0-3.0 Normal (applies to non-n umeric results) [facility] ([facility]) Eos % 5.6 % 0.0-3.0 Above high normal [facility] ([facility]) Neutrophils # 4.6 10 1.5-8.5 Normal (applies to non-numeric re sults) [facility] ([facility]) Nucleated Red Blood Cell % 0.0 % 0-0 Normal (applies to n on-numeric results) [facility]) Weber # 0.5 10 0.0-0.8 Normal (applies to non-numeric resul ts) [facility] ([facility]) Lymph # 2.2 10 1.5-5.0 Normal (applies to non-numeric resul ts) [facility] ([facility]) Baso # 0.0 10 0.0-0.2 Normal (applies to non-numeric resul ts) [facility] ([facility]) Eos # 0.4 10 0.0-0.5 Normal (applies to non-numeric resul ts) [facility] ([facility]) ID Date Data Source LUPC 10/02/2020 12:00:00 AM EDT eCW1 ([facility]) Name Value Range Interpretation Code Description Data Rema rce(s) Supporting Document(s) 1.27 0.00-1.20 NORMALIZED RATIO eCW1 ([facility]) ID Date Data Source TSH 10/02/2020 12:00:00 AM EDT eCW1 ([facility]) Name Value Range Interpretation Code Description Data Rema rce(s) Supporting Document(s) 0.828 0.358-3.740 THYROID STIMULATING HORM ONE eCW1 ([facility]) ID Date Data Source LUPUS TYPE ANTICOAGULANT SCREE 10/02/2020 12:00:00 AM EDT eC W1 ([facility]) Name Value Range Interpretation Code Description Data Rema rce(s) Supporting Document(s) 1.4 0-1.2 PTT LUPUS TYPE ANTICOAG S CREEN eCW1 ([facility]) ID Date Data Source COMPLEMENT TOTAL (CH50) 10/02/2020 12:00:00 AM EDT eCW1 ([facility]) Name Value Range Interpretation Code Description Data Rema rce(s) Supporting Document(s) > 60 >41 COMPLEMENT TOTAL (CH50) eCW1 ( [facility]) ID Date Data Source VITAMIN B12 LEVEL 10/02/2020 12:00:00 AM EDT eCW1 ([facility]) Name Value Range Interpretation Code Description Data Rema rce(s) Supporting Document(s) [phone] VITAMIN B12 LEVEL eCW1 ([facility]) ID Date Data Source VITAMIN D 25-HYDROXY 10/02/2020 12:00:00 AM EDT eCW1 ([facility]) Name Value Range Interpretation Code Description Data Rema rce(s) Supporting Document(s) 24.7 30.0-100.0 TOTAL 25(OH) VITAMIN D eC W1 ([facility]) ID Date Data Source [facility] Hand, complete 10/02/2020 12:00:00 AM EDT eCW1 ([facility]) Name Value Range Interpretation Code Description Data Rema rce(s) Supporting Document(s) [facility] Hand, complete eCW1 ([facility]) ID Date Data Source [facility] Wrist, complete 10/02/2020 12:00:00 AM EDT eCW1 ([facility]) Name Value Range Interpretation Code Description Data Rema rce(s) Supporting Document(s) [facility] Wrist, complete eCW1 ([facility]) ID Date Data Source [facility] Ankle, complete 10/02/2020 12:00:00 AM EDT eCW1 ([facility]) Name Value Range Interpretation Code Description Data Rema rce(s) Supporting Document(s) [facility] Ankle, complete eCW1 ([facility]) ID Date Data Source MAGNESIUM LEVEL 10/02/2020 12:00:00 AM EDT eCW1 ([facility]) Name Value Range Interpretation Code Description Data Rema rce(s) Supporting Document(s) 2.1 1.8-2.4 MAGNESIUM LEVEL eCW1 ([facility]) ID Date Data Source IRON (FE) 10/02/2020 12:00:00 AM EDT eCW1 ([facility]) Name Value Range Interpretation Code Description Data Rema rce(s) Supporting Document(s) 50 50-170 IRON (FE) eCW1 ([facility]) ID Date Data Source CPK CREATINE PHOSPHOKINASE 10/02/2020 12:00:00 AM EDT eCW1 ( [facility]) Name Value Range Interpretation Code Description Data Rema rce(s) Supporting Document(s) 43 26-192 CPK CREATINE PHOSPHOKINASE eCW 1 ([facility]) ID Date Data Source PHOSPHOROUS LEVEL 10/02/2020 12:00:00 AM EDT eCW1 ([facility]) Name Value Range Interpretation Code Description Data Rema rce(s) Supporting Document(s) 3.6 2.5-4.9 PHOSPHORUS LEVEL eCW1 ([facility]) ID Date Data Source ERYTHROCYTE SEDIMENTATION RATE 10/02/2020 12:00:00 AM EDT eC W1 ([facility]) Name Value Range Interpretation Code Description Data Rema rce(s) Supporting Document(s) 45 0-20 ERYTHROCYTE SEDIMENTATION RATE eCW1 ([facility]) ID Date Data Source C REACTIVE PROTEIN QUANTITATIV (At [facility] Lab) 10/02/2020 12:00 :00 AM EDT eCW1 ([facility]) Name Value Range Interpretation Code Description Data Rema rce(s) Supporting Document(s) 1.67 0.00-0.30 C REACTIVE PROTEIN QUANTI TATIV eCW1 ([facility]) ID Date Data Source CBC with Differential 10/02/2020 12:00:00 AM EDT eCW1 ([facility]) Name Value Range Interpretation Code Description Data Rema rce(s) Supporting Document(s) 4.54 4.00-5.40 RED BLOOD COUNT eCW1 ([facility]) 7.8 4.0-10.0 WHITE BLOOD COUNT eCW1 ([facility]) 39.2 36.0-47.0 HEMATOCRIT eCW1 ([facility]) 12.9 12.0-15.5 HEMOGLOBIN eCW1 ([facility]) 86.3 80.0-96.0 MEAN CORPUSCULAR VOLUME e CW1 ([facility]) 13.3 11.5-14.5 RED CELL DISTRIBUTION WID TH eCW1 ([facility]) 28.4 27.0-33.0 MEAN CORPUSCULAR HEMOGLOB IN eCW1 ([facility]) 32.9 32.0-36.5 MEAN CORPUSCULAR HGB CONC eCW1 ([facility]) 59.4 36.0-66.0 NEUTROPHILS % eCW1 ([facility]) 212 150-450 PLATELET COUNT, AUTOMATED eCW1 ([facility]) 27.9 24.0-44.0 LYMPH % eCW1 ([facility]) 0.4 0.0-1.0 BASO % eCW1 ([facility]) 5.6 0.0-3.0 EOS % eCW1 ([facility]) 6.4 2.0-8.0 MONO % eCW1 ([facility]) 0.5 0.0-0.8 MONO # eCW1 ([facility]) 2.2 1.5-5.0 LYMPH # eCW1 ([facility]) 4.6 1.5-8.5 NEUTROPHILS # eCW1 ([facility]) 0.0 0.0-0.2 BASO # eCW1 ([facility]) 0.4 0.0-0.5 EOS # eCW1 ([facility]) ID Date Data Source COMPLEMENT C4 10/02/2020 12:00:00 AM EDT eCW1 ([facility]) Name Value Range Interpretation Code Description Data Rema rce(s) Supporting Document(s) 23 10-40 COMPLEMENT C4 eCW1 ([facility]) ID Date Data Source COMPLEMENT C3 10/02/2020 12:00:00 AM EDT eCW1 ([facility]) Name Value Range Interpretation Code Description Data Rema rce(s) Supporting Document(s) 148 90-180 COMPLEMENT C3 eCW1 ([facility]) ID Date Data Source UA URINALYSIS 09/28/2020 12:00:00 AM EDT eCW1 ([facility]) Name Value Range Interpretation Code Description Data Rema rce(s) Supporting Document(s) UA URINALYSIS eCW1 ([facility]) ID Date Data Source TOTAL PROTEIN,RANDOM URINE 09/28/2020 12:00:00 AM EDT eCW1 ( [facility]) Name Value Range Interpretation Code Description Data Rema rce(s) Supporting Document(s) 12.4 0.0-12.0 TOTAL PROTEIN,RANDOM URIN E eCW1 ([facility]) ID Date Data Source CREATININE,RANDOM URINE 09/28/2020 12:00:00 AM EDT eCW1 ([facility]) Name Value Range Interpretation Code Description Data Rema rce(s) Supporting Document(s) 175.0 CREATININE,RANDOM URINE eCW1 ( [facility]) ID Date Data Source [id number] 06/19/2020 10:39:00 AM EDT [facility] ([facility]) Name Value Range Interpretation Code Description Data Rema rce(s) Supporting Document(s) Anti Double Strand-Dna AB 32 IU/ml 0-9 Above high normal [facility] ([facility]) <content>Negative <5</content>
<content>Equivocal 5 - 9</content>
<content>Positive >9</content>
<content></content> Antinuclear Antibodies Direct Laboratory test result Abnormal (applies to non- numeric results) [facility] ([facility]) BIOMETRY TEACHER Antibodies Laboratory test result 0.0-0.9 Normal (a pplies to non-numeric results) [facility] ([facility]) [place] Antibodies Laboratory test result 0.0-0.9 Normal ( applies to non-numeric results) [facility] ([facility]) Sjogren's Anti SS-A Laboratory test result 0.0-0.9 [place] l (applies to non- numeric results) [facility] ([facility]) Sjogren's Anti SS-B Laboratory test result 0.0-0.9 [place] l (applies to non- numeric results) [facility] ([facility]) Renée Comment Laboratory test result Normal (applies to non- numeric results) [facility] ([facility]) . Autoantibody Disease Association Condition Frequency -------- [...] (anti-[place]) SLE 15 - 30% ------- --------- BIOMETRY TEACHER Mixed Connective Tissue Disease 95% (U1 nRNP, SLE 30 - 50% anti-ribonucleoprotein) Polymyositis and/or Dermatomyositis 20% -------- --------- Scl-70 (antiDNA Scleroderma (diffuse) 20 - 35% topoisomerase) Crest 13% -------- --------- Edel-1 Polymyositis and/or Dermatomyositis 20 - 40% -------- --------- Centromere B Scleroderma - Crest variant 80% Performed at: RN - [facility] [address] [id number] Urologist Physician: Pretty Swain MD, Phone: [phone] ID Date Data Source [id number] 06/19/2020 10:39:00 AM EDT [facility] ([facility]) Name Value Range Interpretation Code Description Data Rema rce(s) Supporting Document(s) Glucose, Fasting 83 mg/dL 70-100 Normal (applies to non-numeric results) [facility] ([facility]) Blood Urea Nitrogen 22 mg/dL 7-18 Above high normal [facility] ([facility]) Creatinine For GFR 0.83 mg/dL 0.55-1.30 Normal (applies to non -numeric results) [facility] ([facility]) Sodium Level 139 meq/L 136-145 Normal (applies to non-numeric res ults) [facility] ([facility]) Glomerular Filtration Rate Laboratory test result Normal (applies to non- numeric results) [facility] ([facility]) <content>Units are mL/min/1.73 m2</content>
<content></content>
<content>Chronic Kidney Disease Staging per NKF:</content>
<content></content>
<content>Stage I & II GFR >=60 Normal to Mildly Decreased</content>
<content>Stage III GFR 30- 59 Moderately Decreased</content>
<content>Stage IV GFR 15-29 Severely Decreased</content>
<content>Stage V GFR <15 Very Little GFR Left</content>
<content>ESRD GFR <15 on BIOFUELS TECHNOLOGY DEVELOPMENT MANAGER</content>
<content></content> Carbon Dioxide Level 28 meq/L 21-32 Normal (applies to non-num prashanth results) [facility] ([facility]) Chloride Level 106 meq/L 98-107 Normal (applies to non-numeric r esults) [facility] ([facility]) Potassium Serum 4.3 meq/L 3.5-5.1 Normal (applies to non-numeric results) [facility] ([facility]) Anion Gap 5 meq/L 8-16 [facility] Calcium Level 9.1 mg/dL 8.5-10.1 Normal (applies to non-numeric re sults) [facility] ([facility]) Alt/SGPT 29 U/L 12-78 Normal (applies to non-numeric resul ts) [facility] ([facility]) Alkaline Phosphatase 103 U/L 45-117 Normal (applies to non-num prashanth results) [facility] ([facility]) Ast/Sgot 17 U/L 7-37 Normal (applies to non-numeric resul ts) [facility] ([facility]) Total Protein 7.1 GM/DL 6.4-8.2 Normal (applies to non-numeric re sults) [facility] ([facility]) Bilirubin,Total 0.4 mg/dL 0.2-1.0 Normal (applies to non-numeric results) [facility] ([facility]) Albumin 3.5 GM/DL 3.2-5.2 Normal (applies to non-numeric resul ts) [facility] ([facility]) Albumin/Globulin Ratio 1.0 1.2-2.2 Below low normal [facility] ([facility]) ID Date Data Source [id number] 06/19/2020 10:39:00 AM EDT [facility] ([facility]) Name Value Range Interpretation Code Description Data Rema rce(s) Supporting Document(s) Nuclear Ab [Titer] in Serum by Immunofluorescence Laboratory test res ult [facility]) Erythrocyte sedimentation rate by Westergren method 41 mm/hr 0-20 Above high normal [facility] ([facility]) C reactive protein [Mass/volume] in Serum or Plasma by High sensitivity method 1.13 mg/dL 0.00-0.30 Above high normal [facility] ([facility]) <content>note:<nlbl:demographic_changed> </content>
<content></content> Rheumatoid factor [Units/volume] in Serum or Plasma Laboratory t est result Normal (applies to non-numeric results) [facility] ([facility]) <content>note:<nlbl:demographic_changed> </content>
<content></content> ID Date Data Source [id number] 06/19/2020 10:39:00 AM EDT [facility] ([facility]) Name Value Range Interpretation Code Description Data Rema rce(s) Supporting Document(s) White Blood Count 7.1 10 4.0-10.0 Normal (applies to non-numeri c results) [facility] ([facility]) Red Blood Count 4.67 10 4.00-5.40 Normal (applies to non-numeric results) [facility] ([facility]) Hemoglobin 13.5 g/dL 12.0-15.5 Normal (applies to non-numeric resul ts) [facility] ([facility]) Hematocrit 42.2 % 36.0-47.0 Normal (applies to non-numeric resul ts) [facility] ([facility]) Mean Corpuscular Hemoglobin 28.9 pg 27.0-33.0 Norm al (applies to non-numeric results) [facility] ([facility]) Mean Corpuscular Volume 90.4 fl 80.0-96.0 Normal ( applies to non-numeric results) [facility] ([facility]) Platelet Count, Automated 238 10 150-450 Normal (applies to non-numeric results) [facility] ([facility]) Mean Corpuscular HGB Conc 32.0 g/dL 32.0-36.5 Normal (applies to non-numeric results) [facility] ([facility]) Red Cell Distribution Width 13.1 % 11.5-14.5 Norm al (applies to non-numeric results) [facility] ([facility]) Lymph % 28.2 % 24.0-44.0 Normal (applies to non-numeric resul ts) [facility] ([facility]) Neutrophils % 56.9 % 36.0-66.0 Normal (applies to non-numeric re sults) [facility] ([facility]) Eos % 8.1 % 0.0-3.0 Above high normal [facility] ([facility]) Weber % 5.5 % 2.0-8.0 Normal (applies to non-numeric resul ts) [facility] ([facility]) Baso % 1.0 % 0.0-1.0 Normal (applies to non-numeric resul ts) [facility] ([facility]) Immature Granulocyte % 0.3 % 0-3.0 Normal (applies to non-n umeric results) [facility] ([facility]) Nucleated Red Blood Cell % 0.0 % 0-0 Normal (applies to n on-numeric results) [facility] ([facility]) Neutrophils # 4.0 10 1.5-8.5 Normal (applies to non-numeric re sults) [facility] ([facility]) Lymph # 2.0 10 1.5-5.0 Normal (applies to non-numeric resul ts) [facility] ([facility]) Eos # 0.6 10 0.0-0.5 Above high normal [facility] ([facility]) Weber # 0.4 10 0.0-0.8 Normal (applies to non-numeric resul ts) [facility] ([facility]) Baso # 0.1 10 0.0-0.2 Normal (applies to non-numeric resul ts) [facility] ([facility]) ID Date Data Source [id number] 06/15/2020 03:00:00 PM EDT [facility] ([facility]) Name Value Range Interpretation Code Description Data Rema rce(s) Supporting Document(s) Pelvis Complete - 3 Views Laboratory test result [facility] ([facility]) Hip Complete RT Laboratory test result [facility] ([facility]) Spine LS Complete Laboratory test result [facility] ([facility]) Spine Thoracic Laboratory test result [facility] ([facility]) ID Date Data Source [id number] 04/23/2020 06:59:00 PM EST [facility] ([facility]) Name Value Range Interpretation Code Description Data Rema rce(s) Supporting Document(s) Laboratory test finding (navigational concept) 40.0 % 3 8.0-51.0 Normal (applies to non-numeric results) [facility] ([facility]) Laboratory test finding (navigational concept) 92 mg/dL 7 0-105 Normal (applies to non-numeric results) [facility] ([facility]) Laboratory test finding (navigational concept) 3.7 meq/L 3 .5-5.1 Normal (applies to non-numeric results) [facility] ([facility]) Laboratory test finding (navigational concept) 142 meq/L 1 36-145 Normal (applies to non-numeric results) [facility] ([facility]) Laboratory test finding (navigational concept) 4.8 mg/dL 4 .5-5.3 Normal (applies to non-numeric results) [facility] ([facility]) Laboratory test finding (navigational concept) 104 meq/L 9 8-109 Normal (applies to non-numeric results) [facility] ([facility]) Laboratory test finding (navigational concept) 30.0 MM/L 2 3.0-27.0 Above high normal [facility] ([facility]) Laboratory test finding (navigational concept) 18 mg/dL 8 -26 Normal (applies to non-numeric results) [facility] ([facility]) Laboratory test finding (navigational concept) 1.1 mg/dL 0 .6-1.3 Normal (applies to non-numeric results) [facility] ([facility]) ID Date Data Source [id number] 04/23/2020 06:52:00 PM EST [facility] ([facility]) Name Value Range Interpretation Code Description Data Rema rce(s) Supporting Document(s) Reflex Urine Culture Laboratory test result Norm al (applies to non-numeric results) [facility] ([facility]) FULL REPORT IN LAB NOTES (eCW and [facility] ). NO GROWTH CLINICAL SIGNIFICANCE 2 OR MORE ORGANISMS ID Date Data Source [id number] 04/23/2020 06:52:00 PM EST [facility] ([facility]) Name Value Range Interpretation Code Description Data Rema rce(s) Supporting Document(s) Appearance, Urine RFX Laboratory test result Nor mal (applies to non-numeric results) [facility] ([facility]) PH,Urine RFX 6.0 units 5.0-9.0 Normal (applies to non-numeric res ults) [facility] ([facility]) Color, Urine RFX Laboratory test result Normal ( applies to non-numeric results) [facility] ([facility]) Specific Check Ur Auto RFX 1.020 1.002-1.035 Nor mal (applies to non-numeric results) [facility] ([facility]) Protein, Urine Auto RFX Laboratory test result N ormal (applies to non-numeric results) [facility] ([facility]) Glucose, Urine (Ua) Auto RFX Laboratory test result Normal (applies to non- numeric results) [facility] ([facility]) Ketone, Urine Auto RFX Laboratory test result No rmal (applies to non-numeric results) [facility] ([facility]) Bilirubin, Urine Auto RFX Laboratory test result Normal (applies to non- numeric results) [facility] ([facility]) Urobilinogen, Urine Auto RFX 0.2 mg/dL 0.0-2.0 Nor mal (applies to non-numeric results) [facility] ([facility]) Nitrite, Urine Auto RFX Laboratory test result N ormal (applies to non-numeric results) [facility] ([facility]) Blood, Urine Blood RFX Laboratory test result Above high n ormal [facility] ([facility]) Leukocyte Esterase Ur Auto RFX Laboratory test result Abov e high normal [facility] ([facility]) WBC, Urine Auto RFX 32 /HPF 0-3 Above high normal [facility] ([facility]) RBC, Urine Auto RFX Laboratory test result 0-3 Above high norm al [facility] ([facility]) Bacteria, Urine Auto RFX Laboratory test result Above high normal [facility] ([facility]) Squam Epithelial Cell Ur Aurfx 1 /HPF 0-6 N ormal (applies to non-numeric results) [facility] ([facility]) Transitional Epithelial AU RFX Laboratory test result Normal (applies to non- numeric results) [facility]) Hyaline Cast, Urine Auto RFX 0 /LPF 0-1 Normal (appl ies to non-numeric results) [facility] ([facility]) ID Date Data Source [id number] 04/23/2020 06:52:00 PM EST [facility] ([facility]) Name Value Range Interpretation Code Description Data Rema rce(s) Supporting Document(s) Lipase [Enzymatic activity/volume] in Serum or Plasma 194 U/L 73-393 Normal (applies to non-numeric results) [facility] ([facility]) <content>note:<nlbl:demographic_changed> </content>
<content></content> ID Date Data Source [id number] 04/23/2020 06:52:00 PM EST [facility] ([facility]) Name Value Range Interpretation Code Description Data Rema rce(s) Supporting Document(s) Ast/Sgot 15 U/L 7-37 Normal (applies to non-numeric resul ts) [facility] ([facility]) Alt/SGPT 24 U/L 12-78 Normal (applies to non-numeric resul ts) [facility] ([facility]) Alkaline Phosphatase 130 U/L 45-117 Above high normal [facility] ([facility]) Bilirubin,Total 0.2 mg/dL 0.2-1.0 Normal (applies to non-numeric results) [facility] ([facility]) Bilirubin,Direct Laboratory test result 0.0-0.2 Normal ( applies to non-numeric results) [facility] ([facility]) Total Protein 7.4 GM/DL 6.4-8.2 Normal (applies to non-numeric re sults) [facility] ([facility]) Albumin 3.2 GM/DL 3.2-5.2 Normal (applies to non-numeric resul ts) [facility] ([facility]) Albumin/Globulin Ratio 0.8 1.2-2.2 Below low normal [facility] ([facility]) ID Date Data Source [id number] 04/23/2020 06:52:00 PM EST [facility] ([facility]) Name Value Range Interpretation Code Description Data Rema rce(s) Supporting Document(s) White Blood Count 9.5 10 4.0-10.0 Normal (applies to non-numeri c results) [facility] ([facility]) Red Blood Count 4.44 10 4.00-5.40 Normal (applies to non-numeric results) [facility] ([facility]) Hemoglobin 13.2 g/dL 12.0-15.5 Normal (applies to non-numeric resul ts) [facility] ([facility]) Hematocrit 40.4 % 36.0-47.0 Normal (applies to non-numeric resul ts) [facility] ([facility]) Mean Corpuscular Volume 91.0 fl 80.0-96.0 Normal ( applies to non-numeric results) [facility] ([facility]) Mean Corpuscular Hemoglobin 29.7 pg 27.0-33.0 Norm al (applies to non-numeric results) [facility] ([facility]) Mean Corpuscular HGB Conc 32.7 g/dL 32.0-36.5 Normal (applies to non-numeric results) [facility] ([facility]) Neutrophils % 56.5 % 36.0-66.0 Normal (applies to non-numeric re sults) [facility] ([facility]) Platelet Count, Automated 294 10 150-450 Normal (applies to non-numeric results) [facility] ([facility]) Red Cell Distribution Width 12.8 % 11.5-14.5 Norm al (applies to non-numeric results) [facility] ([facility]) Lymph % 29.0 % 24.0-44.0 Normal (applies to non-numeric resul ts) [facility] ([facility]) Weber % 5.4 % 2.0-8.0 Normal (applies to non-numeric resul ts) [facility] ([facility]) Baso % 0.8 % 0.0-1.0 Normal (applies to non-numeric resul ts) [facility]) Eos % 8.1 % 0.0-3.0 Above high normal [facility] ([facility]) Nucleated Red Blood Cell % 0.0 % 0-0 Normal (applies to n on-numeric results) [facility] ([facility]) Immature Granulocyte % 0.2 % 0-3.0 Normal (applies to non-n umeric results) [facility] ([facility]) Weber # 0.5 10 0.0-0.8 Normal (applies to non-numeric resul ts) MEDENT ([facility]) Neutrophils # 5.3 10 1.5-8.5 Normal (applies to non-numeric re sults) MEDENT ([facility]) Lymph # 2.8 10 1.5-5.0 Normal (applies to non-numeric resul ts) [facility]ENT ([facility]) Eos # 0.8 10 0.0-0.5 Above high normal MEDENT ([facility]) Baso # 0.1 10 0.0-0.2 Normal (applies to non-numeric resul ts) [facility]ENT ([facility]) ID Date Data Source [id number] 04/06/2020 06:45:00 PM EST [facility] Name Value Range Interpretation Code Description Data Rema rce(s) Supporting Document(s) SARS coronavirus 2 RNA [Presence] in Res piratory specimen by PATSY with probe detection NEGATIVE [facility] This lab was ordered by [facility] a nd reported by [facility]. ID Date Data Source Comprehensive Metabolic Profile (CMP) 03/31/2020 12:00:00 AM EST eCW1 ([facility]) Name Value Range Interpretation Code Description Data Rema rce(s) Supporting Document(s) 116 70-100 GLUCOSE, FASTING eCW1 ([facility]) 0.67 0.55-1.30 CREATININE FOR GFR eCW1 ([facility]) 9 7-18 BLOOD UREA NITROGEN eCW1 ([facility]) > 60.0 >60 GLOMERULAR FILTRATION RATE eCW 1 ([facility]) 138 136-145 SODIUM LEVEL eCW1 ([facility]) 4.4 3.5-5.1 POTASSIUM SERUM eCW1 ([facility]) 103 98-107 CHLORIDE LEVEL eCW1 ([facility]) 9.1 8.5-10.1 CALCIUM LEVEL eCW1 ([facility]) 29 21-32 CARBON DIOXIDE LEVEL eCW1 ([facility]) 13 12-78 ALT/SGPT eCW1 ([facility]) 6 7-37 AST/SGOT eCW1 ([facility]) 0.2 0.2-1.0 BILIRUBIN,TOTAL eCW1 ([facility]) 2.4 3.2-5.2 ALBUMIN eCW1 ([facility]) 6.4 6.4-8.2 TOTAL PROTEIN eCW1 ([facility]) 122 45-117 ALKALINE PHOSPHATASE eCW1 ([facility]) 0.6 1.2-2.2 ALBUMIN/GLOBULIN RATIO eCW1 (On license of [facility]) ID Date Data Source CBC - Complete Blood Count 03/31/2020 12:00:00 AM EST eCW1 ( [facility]) Name Value Range Interpretation Code Description Data Rema rce(s) Supporting Document(s) 4.28 4.00-5.40 RED BLOOD COUNT eCW1 ([facility]) 12.1 4.0-10.0 WHITE BLOOD COUNT eCW1 ([facility]) 13.2 12.0-15.5 HEMOGLOBIN eCW1 ([facility]) 30.8 27.0-33.0 MEAN CORPUSCULAR HEMOGLOB IN eCW1 ([facility]) 39.0 36.0-47.0 HEMATOCRIT eCW1 ([facility]) 33.8 32.0-36.5 MEAN CORPUSCULAR HGB CONC eCW1 ([facility]) 91.1 80.0-96.0 MEAN CORPUSCULAR VOLUME e CW1 ([facility]) 197 150-450 PLATELET COUNT, AUTOMATED eCW1 ([facility]) 13.8 11.5-14.5 RED CELL DISTRIBUTION WID TH eCW1 ([facility]) ID Date Data Source Pre Eclampsia Profile 03/08/2020 12:00:00 AM EST eCW1 ([facility]) Name Value Range Interpretation Code Description Data Rema rce(s) Supporting Document(s) 0.62 0.55-1.30 CREATININE FOR GFR eCW1 ([facility]) 7 7-37 AST/SGOT eCW1 ([facility]) > 60.0 >60 GLOMERULAR FILTRATION RATE eCW 1 ([facility]) 16 12-78 ALT/SGPT eCW1 ([facility]) 145 84-246 LDH LACTATE DEHYDROGENASE eCW1 ([facility]) 3.6 2.6-6.0 URIC ACID eCW1 ([facility]) 0.2 0.2-1.0 BILIRUBIN,TOTAL eCW1 ([facility]) ID Date Data Source Glucose Challenge Test 1 Hour 01/24/2020 12:00:00 AM EST eCW 1 ([facility]) Name Value Range Interpretation Code Description Data Rema rce(s) Supporting Document(s) 121 LESS THAN 140 GLUCOSE CHALLENGE TEST 1 HOUR eCW1 ([facility]) ID Date Data Source Type and Screen (D Rh Antibody Screen) 01/24/2020 12:00:00 A M EST eCW1 ([facility]) Name Value Range Interpretation Code Description Data Rema rce(s) Supporting Document(s) NEGATIVE AB SCREEN (INDIRECT COOMB S)VIS eCW1 ([facility]) O POSITIVE BLOOD TYPE eCW1 ([facility]) ID Date Data Source WWBC OBS COMPLETE US 12/21/2019 03:14:36 AM EDT eCW1 ([facility]) Name Value Range Interpretation Code Description Data Rema rce(s) Supporting Document(s) eCW1 ([facility]) ID Date Data Source PAP REQUEST FOR SERVICE 12/13/2019 02:40:09 AM EDT eCW1 ([facility]) Name Value Range Interpretation Code Description Data Rema rce(s) Supporting Document(s) eCW1 ([facility]) ID Date Data Source HEPATITIS C ANTIBODY INDEX 12/13/2019 02:39:54 AM EDT eCW1 ( [facility]) Name Value Range Interpretation Code Description Data Rema rce(s) Supporting Document(s) 1.1 eCW1 ([facility]) ID Date Data Source HBSAG 12/09/2019 10:34:13 AM EDT eCW1 ([facility]) Name Value Range Interpretation Code Description Data Rema rce(s) Supporting Document(s) NEGATIVE eCW1 ([facility]) ID Date Data Source RUBELLA IMMUNE STATUS IgG 12/09/2019 10:33:58 AM EDT eCW1 (On license of [facility]) Name Value Range Interpretation Code Description Data Rema rce(s) Supporting Document(s) IMMUNE eCW1 ([facility]) ID Date Data Source SYPHILIS ANTIBODY (RPR SCREEN) 12/09/2019 10:33:52 AM EDT eC W1 ([facility]) Name Value Range Interpretation Code Description Data Rema rce(s) Supporting Document(s) NONREACTIVE eCW1 ([facility]) ID Date Data Source [id number] 12/09/2019 10:19:01 AM EDT eCW1 ([facility]) Name Value Range Interpretation Code Description Data Rema rce(s) Supporting Document(s) eCW1 ([facility]) Procedure Social History Code Duration Value Status Description Data Source(s ) Smoking 11/17/2020 12:00:00 AM EDT Unknown if ever smoked comp leted Unknown if ever smoked [facility] ([facility]) Smoking 11/03/2020 12:00:00 AM EDT Former Smoker completed Former Smoker eCW1 ([facility]) Smoking 11/03/2020 12:00:00 AM EDT Former Smoker completed Former Smoker eCW1 ([facility]) Alcohol intake 10/13/2020 12:00:00 AM EDT Current drinker of al cohol (finding) completed Current drinker of alcohol (finding) [facility] Smoking 09/28/2020 12:00:00 AM EDT Former Smoker completed Former Smoker eCW1 ([facility]) Smoking 09/28/2020 12:00:00 AM EDT Former Smoker completed Former Smoker eCW1 ([facility]) Smoking 09/28/2020 12:00:00 AM EDT Former Smoker completed Former Smoker eCW1 ([facility]) Smoking 09/28/2020 12:00:00 AM EDT Former Smoker completed Former Smoker eCW1 ([facility]) Smoking 09/18/2020 12:00:00 AM EDT Unknown if ever smoked comp leted Unknown if ever smoked [facility] ([facility]) Smoking 08/17/2020 12:00:00 AM EDT Unknown if ever smoked comp leted Unknown if ever smoked [facility] ([facility]) Smoking 07/25/2020 12:00:00 AM EDT Unknown if ever smoked comp leted Unknown if ever smoked [facility] ([facility]) Smoking 07/07/2020 12:00:00 AM EDT Unknown if ever smoked comp leted Unknown if ever smoked [facility] ([facility]) Smoking 06/28/2020 12:00:00 AM EDT Former Smoker completed Former Smoker eCW1 ([facility]) Smoking 06/20/2020 12:00:00 AM EDT Unknown if ever smoked comp leted Unknown if ever smoked [facility] ([facility]) Smoking 06/01/2020 12:00:00 AM EDT Unknown if ever smoked comp leted Unknown if ever smoked [facility] ([facility]) Smoking 05/24/2020 12:00:00 AM EDT Unknown if ever smoked comp leted Unknown if ever smoked [facility] ([facility]) Smoking 05/09/2020 12:00:00 AM EST Unknown if ever smoked comp leted Unknown if ever smoked [facility] ([facility]) Smoking 04/27/2020 12:00:00 AM EST Former Smoker completed Former Smoker eCW1 ([facility]) Smoking 04/27/2020 12:00:00 AM EST Former Smoker completed Former Smoker eCW1 ([facility]) Smoking 04/27/2020 12:00:00 AM EST Unknown if ever smoked comp leted Unknown if ever smoked [facility] ([facility]) Smoking 04/25/2020 12:00:00 AM EST Unknown if ever smoked comp leted Unknown if ever smoked [facility] ([facility]) Smoking 04/11/2020 12:00:00 AM EST Unknown if ever smoked comp leted Unknown if ever smoked [facility] ([facility]) Smoking 04/02/2020 12:00:00 AM EST Former Smoker completed Former Smoker eCW1 ([facility]) Smoking 03/24/2020 12:00:00 AM EST Former Smoker completed Former Smoker eCW1 ([facility]) Smoking 03/24/2020 12:00:00 AM EST Former Smoker completed Former Smoker eCW1 ([facility]) Smoking 03/24/2020 12:00:00 AM EST Unknown if ever smoked comp leted Unknown if ever smoked [facility] ([facility]) Smoking 03/21/2020 12:00:00 AM EST Unknown if ever smoked comp leted Unknown if ever smoked [facility] ([facility]) Smoking 03/17/2020 12:00:00 AM EST Unknown if ever smoked comp leted Unknown if ever smoked [facility] ([facility]) Smoking 03/16/2020 12:00:00 AM EST Former Smoker completed Former Smoker eCW1 ([facility]) Smoking 03/06/2020 12:00:00 AM EST Former Smoker completed Former Smoker eCW1 ([facility]) Smoking 03/06/2020 12:00:00 AM EST Former Smoker completed Former Smoker eCW1 ([facility]) Smoking 03/06/2020 12:00:00 AM EST Unknown if ever smoked comp leted Unknown if ever smoked [facility] ([facility]) Smoking 02/21/2020 12:00:00 AM EST Former Smoker completed Former Smoker eCW1 ([facility]) Smoking 02/21/2020 12:00:00 AM EST Former Smoker completed Former Smoker eCW1 ([facility]) Smoking 02/21/2020 12:00:00 AM EST Former Smoker completed Former Smoker eCW1 ([facility]) Smoking 02/11/2020 12:00:00 AM EST Unknown if ever smoked comp leted Unknown if ever smoked [facility] ([facility]) Smoking 01/25/2020 12:00:00 AM EST Unknown if ever smoked comp leted Unknown if ever smoked [facility] ([facility]) Smoking 01/21/2020 12:00:00 AM EST Former Smoker completed Former Smoker eCW1 ([facility]) Smoking 01/21/2020 12:00:00 AM EST Former Smoker completed Former Smoker eCW1 ([facility]) Smoking 01/21/2020 12:00:00 AM EST Former Smoker completed Former Smoker eCW1 ([facility]) Smoking 01/10/2020 12:00:00 AM EST Unknown if ever smoked comp leted Unknown if ever smoked [facility] ([facility]) Smoking 12/30/2019 12:00:00 AM EDT Unknown if ever smoked comp leted Unknown if ever smoked [facility] ([facility]) Smoking 12/16/2019 12:00:00 AM EDT Unknown if ever smoked comp leted Unknown if ever smoked [facility] ([facility]) Smoking 12/07/2019 12:00:00 AM EDT Former Smoker completed Former Smoker eCW1 ([facility]) Smoking 12/02/2019 12:00:00 AM EDT Unknown if ever smoked comp leted Unknown if ever smoked [facility] ([facility]) Smoking 11/30/2019 12:00:00 AM EDT Unknown if ever smoked comp leted Unknown if ever smoked [facility] ([facility]) Vital Signs ID Date Data Source UNK Name Value Range Interpretation Code Description Data Source(s) Body weight 305.2 [lb_av] 305.2 [lb_av] eCW1 (On [facility] of [facility]) Body weight 138.44 kg 138.44 kg W1 ([facility]) Body height 66 [in_i] 66 [in_i] eCW1 ([facility]) Body mass index (BMI) [Ratio] 49.26 kg/m2 49.26 kg/m2 [facility] ([facility]) Heart rate 78 /min 78 /min eCW1 ([facility]) Respiratory rate 18 /min 18 /min eCW1 ([facility]) Body temperature 97.2 [degF] 97.2 [degF] eCW1 ( [facility]) Systolic blood pressure 138 mm[Hg] 138 mm[Hg] e CW1 ([facility]) Diastolic blood pressure 78 mm[Hg] 78 mm[Hg] eCW1 ([facility]) Body height 167.6 cm 167.6 cm [facility] Body weight 136.079 kg 136.079 kg [facility] Body mass index (BMI) [Ratio] 48.42 kg/m2 48.42 kg/m2 [facility] Oxygen saturation in Arterial blood by Pulse oximetry 97 % 97 % [facility] Systolic blood pressure 118 mm[Hg] 118 mm[Hg] [facility] Diastolic blood pressure 90 mm[Hg] 90 mm[Hg] [facility] Heart rate 69 /min 69 /min [facility] Body weight 297.8 [lb_av] 297.8 [lb_av] eCW1 (On [facility] of [facility]) Body weight 135.1 kg 135.1 kg W1 ([facility]) Body height 66 [in_i] 66 [in_i] eCW1 ([facility]) Body temperature 97.4 [degF] 97.4 [degF] eCW1 ( [facility]) Body mass index (BMI) [Ratio] 48.06 kg/m2 48.06 kg/m2 eCW1 ([facility]) Heart rate 90 /min 90 /min eCW1 ([facility]) Respiratory rate 18 /min 18 /min eCW1 ([facility]) Systolic blood pressure 118 mm[Hg] 118 mm[Hg] e CW1 ([facility]) Diastolic blood pressure 72 mm[Hg] 72 mm[Hg] eCW1 ([facility]) Diastolic blood pressure 80 mm[Hg] 80 mm[Hg] MEDENT ([facility]) Elevated Heart rate 75 /min 75 /min MEDENT ([facility]) Oxygen saturation in Arterial blood by Pulse oximetry 96 % 96 % MEDENT ([facility]) Body weight 299.00 [lb_av] 299.00 [lb_av] MEDEN T ([facility]) Body weight 135.626 kg 135.626 kg MEDENT ([facility]) Body temperature 96.8 [degF] 96.8 [degF] MEDENT ([facility]) Body height 65 [in_i] 65 [in_i] MEDENT ([facility]) 5'5" Body mass index (BMI) [Ratio] 49.8 kg/m2 49.8 k g/m2 MED[facility] ([facility]) Body surface area Derived from formula 2.35 m2 2.35 m2 MEDENT ([facility]) Systolic blood pressure 146 mm[Hg] 146 mm[Hg] M EDENT ([facility]) Elevated Respiratory rate 18 /min 18 /min MEDENT ( [facility]) Body weight 296 [lb_av] 296 [lb_av] W1 ([facility]) Body weight 134.26 kg 134.26 kg [facility] ([facility]) Body height 66 [in_i] 66 [in_i] eCW1 ([facility]) Body mass index (BMI) [Ratio] 47.77 kg/m2 47.77 kg/m2 eCW1 ([facility]) Systolic blood pressure 130 mm[Hg] 130 mm[Hg] e CW1 ([facility]) Diastolic blood pressure 90 mm[Hg] 90 mm[Hg] eCW1 ([facility]) Body weight 132.451 kg 132.451 kg MEDENT ([facility]) Heart rate 69 /min 69 /min MEDENT ([facility]) Body temperature 98.2 [degF] 98.2 [degF] MEDENT ([facility]) Systolic blood pressure 140 mm[Hg] 140 mm[Hg] M EDENT ([facility]) Diastolic blood pressure 70 mm[Hg] 70 mm[Hg] MEDENT ([facility]) Respiratory rate 18 /min 18 /min MEDENT ( [facility]) Oxygen saturation in Arterial blood by Pulse oximetry 98 % 98 % MEDENT ([facility]) Body weight 292.00 [lb_av] 292.00 [lb_av] MEDEN T ([facility]) Body height 65 [in_i] 65 [in_i] MEDENT ([facility]) 5'5" Body mass index (BMI) [Ratio] 48.6 kg/m2 48.6 k g/m2 [facility] Body surface area Derived from formula 2.32 m2 2.32 m2 [facility] ([facility]) Body height 0.00 in Normal (applies to non-numeric resu lts) 0.00 in [facility] ([facility]) Body weight Measured 0.00 lbs Normal (applies to n on-numeric results) 0.00 lbs [facility] ([facility]) Body mass index (BMI) [Ratio] 0.00 kg/m2 No rmal (applies to non-numeric results) 0.00 kg/m2 [facility]) Systolic blood pressure 0 mm[Hg] Normal (applies t o non-numeric results) 0 mm[Hg] [facility] ([facility]) Diastolic blood pressure 0 mm[Hg] Normal (applies to non-numeric results) 0 mm[Hg] [facility] ([facility]) Body weight 277 [lb_av] 277 [lb_av] W1 ([facility]) Body height 66 [in_i] 66 [in_i] eCW1 ([facility]) Body mass index (BMI) [Ratio] 44.7 kg/m2 44.7 k g/m2 W1 ([facility]) Systolic blood pressure 140 mm[Hg] 140 mm[Hg] e CW1 ([facility]) Diastolic blood pressure 86 mm[Hg] 86 mm[Hg] eCW1 ([facility]) Systolic blood pressure 152 mm[Hg] 152 mm[Hg] e CW1 ([facility]) Diastolic blood pressure 84 mm[Hg] 84 mm[Hg] eCW1 ([facility]) Body weight 297.6 [lb_av] 297.6 [lb_av] eCW1 (On license of [facility]) Body height 66 [in_i] 66 [in_i] eCW1 ([facility]) Body mass index (BMI) [Ratio] 48.034 kg/m2 48.0 34 kg/m2 eCW1 ([facility]) Systolic blood pressure 132 mm[Hg] 132 mm[Hg] e CW1 ([facility]) Diastolic blood pressure 90 mm[Hg] 90 mm[Hg] eCW1 ([facility]) Body weight 294.2 [lb_av] 294.2 [lb_av] eCW1 (On [facility] of [facility]) Body weight 133.45 kg 133.45 kg eCW1 ([facility]) Body height 66 [in_i] 66 [in_i] eCW1 ([facility]) Body mass index (BMI) [Ratio] 47.485 kg/m2 47.4 85 kg/m2 eCW1 ([facility]) Systolic blood pressure 144 mm[Hg] 144 mm[Hg] e CW1 ([facility]) Diastolic blood pressure 90 mm[Hg] 90 mm[Hg] eCW1 ([facility]) Body height 0.00 in Normal (applies to non-numeric resu lts) 0.00 in [facility] ([facility]) Body weight Measured 0.00 lbs Normal (applies to n on-numeric results) 0.00 lbs [facility] ([facility]) Body mass index (BMI) [Ratio] 0.00 kg/m2 No rmal (applies to non-numeric results) 0.00 kg/m2 [facility] ([facility]) Systolic blood pressure 0 mm[Hg] Normal (applies t o non-numeric results) 0 mm[Hg] [facility] ([facility]) Diastolic blood pressure 0 mm[Hg] Normal (applies to non-numeric results) 0 mm[Hg] [facility] ([facility]) Body weight 292 [lb_av] 292 [lb_av] eCW1 ([facility]) Body height 66 [in_i] 66 [in_i] eCW1 ([facility]) Body mass index (BMI) [Ratio] 47.13 kg/m2 47.13 kg/m2 eCW1 ([facility]) Systolic blood pressure 128 mm[Hg] 128 mm[Hg] e CW1 ([facility]) Diastolic blood pressure 78 mm[Hg] 78 mm[Hg] eCW1 ([facility]) Body weight 290 [lb_av] 290 [lb_av] eCW1 ([facility]) Body weight 131.54 kg 131.54 kg eCW1 ([facility]) Body height 66 [in_i] 66 [in_i] eCW1 ([facility]) Body mass index (BMI) [Ratio] 46.807 kg/m2 46.8 07 kg/m2 eCW1 ([facility]) Systolic blood pressure 140 mm[Hg] 140 mm[Hg] e CW1 ([facility]) Diastolic blood pressure 98 mm[Hg] 98 mm[Hg] eCW1 ([facility]) Body weight 288.2 [lb_av] 288.2 [lb_av] eCW1 (On [facility] of [facility]) Body weight 130.73 kg 130.73 kg eCW1 ([facility]) Body height 66 [in_i] 66 [in_i] eCW1 ([facility]) Body mass index (BMI) [Ratio] 46.517 kg/m2 46.5 17 kg/m2 eCW1 ([facility]) Systolic blood pressure 118 mm[Hg] 118 mm[Hg] e CW1 ([facility]) Diastolic blood pressure 80 mm[Hg] 80 mm[Hg] eCW1 ([facility]) Body height 0.00 in Normal (applies to non-numeric resu lts) 0.00 in [facility] ([facility]) Body weight Measured 0.00 lbs Normal (applies to n on-numeric results) 0.00 lbs [facility]) Body mass index (BMI) [Ratio] 0.00 kg/m2 No rmal (applies to non-numeric results) 0.00 kg/m2 [facility] ([facility]) Systolic blood pressure 0 mm[Hg] Normal (applies t o non-numeric results) 0 mm[Hg] [facility] ([facility]) Diastolic blood pressure 0 mm[Hg] Normal (applies to non-numeric results) 0 mm[Hg] [facility] ([facility]) Body weight 287 [lb_av] 287 [lb_av] eCW1 ([facility]) Body height 66 [in_i] 66 [in_i] eCW1 ([facility]) Body mass index (BMI) [Ratio] 46.323 kg/m2 46.3 23 kg/m2 eCW1 ([facility]) Systolic blood pressure 136 mm[Hg] 136 mm[Hg] e CW1 ([facility]) Diastolic blood pressure 76 mm[Hg] 76 mm[Hg] eCW1 ([facility]) Body weight 286 [lb_av] 286 [lb_av] eCW1 ([facility]) Body weight 129.73 kg 129.73 kg eCW1 ([facility]) Body height 66 [in_i] 66 [in_i] eCW1 ([facility]) Body mass index (BMI) [Ratio] 46.162 kg/m2 46.1 62 kg/m2 eCW1 ([facility]) Systolic blood pressure 124 mm[Hg] 124 mm[Hg] e CW1 ([facility]) Diastolic blood pressure 72 mm[Hg] 72 mm[Hg] eCW1 ([facility]) Body height 0.00 in Normal (applies to non-numeric resu lts) 0.00 in [facility] ([facility]) Body weight Measured 0.00 lbs Normal (applies to n on-numeric results) 0.00 lbs [facility] ([facility]) Body mass index (BMI) [Ratio] 0.00 kg/m2 No rmal (applies to non-numeric results) 0.00 kg/m2 [facility] ([facility]) Systolic blood pressure 0 mm[Hg] Normal (applies t o non-numeric results) 0 mm[Hg] [facility] ([facility]) Diastolic blood pressure 0 mm[Hg] Normal (applies to non-numeric results) 0 mm[Hg] [facility] ([facility]) Body weight 284.0 [lb_av] 284.0 [lb_av] eCW1 (On [facility] of [facility]) Body height 66 [in_i] 66 [in_i] eCW1 ([facility]) Body mass index (BMI) [Ratio] 45.839 kg/m2 45.8 39 kg/m2 eCW1 ([facility]) Systolic blood pressure 110 mm[Hg] 110 mm[Hg] e CW1 ([facility]) Diastolic blood pressure 76 mm[Hg] 76 mm[Hg] eCW1 ([facility]) Body height 0.00 in Normal (applies to non-numeric resu lts) 0.00 in [facility] ([facility]) Body weight Measured 0.00 lbs Normal (applies to n on-numeric results) 0.00 lbs [facility] ([facility]) Body mass index (BMI) [Ratio] 0.00 kg/m2 No rmal (applies to non-numeric results) 0.00 kg/m2 [facility] ([facility]) Systolic blood pressure 0 mm[Hg] Normal (applies t o non-numeric results) 0 mm[Hg] [facility] ([facility]) Diastolic blood pressure 0 mm[Hg] Normal (applies to non-numeric results) 0 mm[Hg] [facility] ([facility]) ID Date Data Source [id number] 03/02/2020 10:20:45 AM [facility] Name Value Range Interpretation Code Description Data Source(s) TRANSFER FROM [facility] Patient Treatment Plan of Care Planned Activity Planned Date Details Description Data Source (s) Aimovig 140 MG/ML SOAJ 09/16/2020 12:00:00 AM EDT [facility] pregabalin 75 MG Oral Capsule 08/18/2020 12:00:00 AM EDT [facility] valacyclovir 500 MG Oral Tablet [Valtrex] 04/27/2020 12:00:00 AM ES T eCW1 ([facility]) valacyclovir 500 MG Oral Tablet [Valtrex] 04/27/2020 12:00:00 AM ES T eCW1 ([facility]) Sumatriptan 100 MG Oral Tablet 04/04/2020 12:00:00 AM EST eCW1 ([facility]) Metronidazole 500 MG Oral Tablet 03/10/2020 12:00:00 AM EST eCW1 ([facility]) Metronidazole 500 MG Oral Tablet 03/10/2020 12:00:00 AM EST eCW1 ([facility]) Acetaminophen 325 MG / butalbital 50 MG / Caffeine 40 MG Oral Capsule [Esgic] 02/28/2020 12:00:00 AM EST eCW1 ([facility]) Acetaminophen 325 MG / butalbital 50 MG / Caffeine 40 MG Oral Capsule [Esgic] 02/28/2020 12:00:00 AM EST eCW1 ([facility]) Amoxicillin 875 MG Oral Tablet 11/06/2019 12:00:00 AM EDT [facility] Aspirin 81 MG Delayed Release Oral Tablet [facility] Vit-Fe Fumarate-FA ( 1+1 PO) [facility]
--- NOTE | 2021-01-12 08:00 | ECGEPIP ---
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
== END 2021-01-12 02:05 | disposition left against medical advice (07) ==
LOC: M ED 00:57
DX: Z53.21 Procedure and treatment not carried out due to patient leaving prior to being seen by health care provider (principal)

== ENCOUNTER → 2021-03-24 | Outpatient (CLI) | payer OTHER, MEDICAID ==
[~2021-03-24] MED LIST changes: +FLUO10CA18; +OMEP-173; -OMEP-218
== END ==
LOC: M RAD 10:21
PROVIDERS: ATTEND Physician Assistant Medical
DX: M79.631 Pain in right forearm (principal); M25.521 Pain in right elbow

== ENCOUNTER → 2021-08-20 | Outpatient (CLI) | payer OTHER ==
[~2021-08-20] MED LIST changes: +ALBU2.5V10 INH; -ALBU83IN INH; +EXCETAB32 PO; -EXCETAB33 PO; -ZONI100C17 PO; +ZONI100C67 PO
== END ==
LOC: M CARPUL 08:00
PROVIDERS: ATTEND Nurse Practitioner Family
DX: R55 Syncope and collapse (principal)

== ENCOUNTER → 2021-11-22 | Outpatient (CLI) | payer OTHER ==
[~2021-11-22] MED LIST changes: +ARIP1TAB4; +DULO1CAP5; +HYDR200T3; +KLON1TAB; +OXCA600T8
== END ==
LOC: M SOG 07:59
PROVIDERS: ATTEND Orthopaedic Surgery
DX: M19.011 Primary osteoarthritis, right shoulder (principal); M25.511 Pain in right shoulder

== ENCOUNTER 2021-11-27 17:57 | Emergency (ER) | payer OTHER ==
[~2021-11-27] VITALS: Ht 167.6 cm; Wt 122.7 kg
[~2021-11-27 17:57] MED LIST changes: -ARIP1TAB4; -DULO1CAP5; -HYDR200T3; -KLON1TAB; -OXCA600T8
[2021-11-27 17:59] VITALS: BP 124/68
[2021-11-27] MEDS ORDERED: KLON1TAB (18:06)
[2021-11-27] MEDS ORDERED: HYDR200T3 (18:06)
[2021-11-27] MEDS ORDERED: ARIP1TAB4 (18:06)
[2021-11-27] MEDS ORDERED: OXCA600T8 (18:06)
[2021-11-27] MEDS ORDERED: DULO1CAP5 (18:06)
== END 2021-11-27 20:30 | disposition left against medical advice (07) ==
LOC: M ED 17:57
DX: Z53.21 Procedure and treatment not carried out due to patient leaving prior to being seen by health care provider (principal)

== ENCOUNTER → 2021-12-14 | Outpatient (CLI) | payer OTHER ==
[~2021-12-14] MED LIST changes: +ARIP1TAB4; +DULO1CAP5; +GLYC1SUP37; -GLYC2SUP; +HYDR200T3; +KLON1TAB; +OXCA600T8
== END ==
LOC: M PLAIMG 09:26
PROVIDERS: ATTEND Orthopaedic Surgery
DX: M25.511 Pain in right shoulder (principal)

== ENCOUNTER → 2021-12-18 | Outpatient (CLI) | payer OTHER | LOC: M RAD 16:24 | PROVIDERS: ATTEND Physician Assistant | DX: M25.531 Pain in right wrist (principal) ==

== ENCOUNTER 2021-12-25 08:30 | Outpatient (RCR) | payer OTHER | END 2021-12-31 | LOC: M PT 08:30 | PROVIDERS: ATTEND Orthopaedic Surgery | DX: M25.511 Pain in right shoulder (principal) ==

== ENCOUNTER → 2022-04-14 | Outpatient (REF) | payer OTHER | LOC: M LAB REF 18:16 | PROVIDERS: ATTEND Physician Assistant | DX: B34.9 Viral infection, unspecified (principal) ==

== ENCOUNTER 2022-06-03 10:52 | Emergency (ER) | payer MEDICAID, OTHER ==
[~2022-06-03] VITALS: Ht 165.1 cm; Wt 127.1 kg
[~2022-06-03 10:52] MED LIST changes: -ASMA16.7 IN; +MOME13HF4 IN
[2022-06-03 13:08] LABS: BASO % 0.5 % (0.0-1.0); EOS # 0.2 10^3/uL (0.0-0.5); EOS % 2.8 % (0.0-3.0); HEMATOCRIT 38.3 % (36.0-47.0); HEMOGLOBIN 12.7 g/dl (12.0-15.5); LYMPH # 1.9 10^3/uL (1.5-5.0); LYMPH % 21.6 % (24.0-44.0); MEAN CORPUSCULAR HEMOGLOBIN 28.9 pg (27.0-33.0); MEAN CORPUSCULAR HGB CONC 33.2 g/dl (32.0-36.5); MONO # 0.6 10^3/uL (0.0-0.8); MONO % 6.9 % (2.0-8.0); NEUTROPHILS # 5.9 10^3/uL (1.5-8.5); NEUTROPHILS % 67.9 % (36.0-66.0); PLATELET COUNT, AUTOMATED 206 10^3/uL (150-450); WHITE BLOOD COUNT 8.7 10^3/uL (4.0-10.0)
[2022-06-03 13:35] LABS: ETHYL ALCOHOL (ETHANOL) < 0.003 % (0.000-0.010)
[2022-06-03 13:36] LABS: SALICYLATE LEVEL < 3.0 MG/DL (<30)
[2022-06-03 13:37] LABS: ACETAMINOPHEN LEVEL < 2.0 UG/ML (10.0-20.0)
[2022-06-03 13:43] LABS: ALBUMIN 3.2 G/DL (3.2-5.2); ALKALINE PHOSPHATASE 100 U/L (46-116); ALT/SGPT 20 U/L (7.0-40); AST/SGOT 28 U/L (<34); BILIRUBIN,DIRECT 0.1 MG/DL (<0.4); BILIRUBIN,TOTAL 0.4 MG/DL (0.3-1.2); BLOOD UREA NITROGEN 9 MG/DL (9-23); CALCIUM LEVEL 8.6 MG/DL (8.5-10.1); CARBON DIOXIDE LEVEL 26 MMOL/L (20-31); CHLORIDE LEVEL 103 MMOL/L (98-107); CREATININE FOR GFR 0.79 MG/DL (0.55-1.30); GLOMERULAR FILTRATION RATE > 60.0 (>58); GLUCOSE, FASTING 94 MG/DL (60-100); SODIUM LEVEL 136 MMOL/L (136-145)
[2022-06-03 14:19] LABS: RSV AMPLIFICATION NEGATIVE (NEGATIVE)
[2022-06-03 14:52] LABS: BARBITURATES URINE NEGATIVE (NEGATIVE); BENZODIAZEPINES URINE NEGATIVE (NEGATIVE); METHADONE URINE NEGATIVE (NEGATIVE); OPIATES URINE NEGATIVE (NEGATIVE)
[2022-06-03 14:53] LABS: AMPHETAMINES LEVEL URINE POSITIVE (NEGATIVE); CANNABINOIDS URINE NEGATIVE (NEGATIVE); COCAINE METABOLITE URINE POSITIVE (NEGATIVE); PHENCYCLIDINE URINE NEGATIVE (NEGATIVE)
[2022-06-03 15:38] LABS: THYROID STIMULATING HORMONE 0.735 uIU/ML (0.55-4.78)
[2022-06-03 16:50] VITALS: BP 150/70
== END 2022-06-03 16:51 | disposition home or self-care (01) ==
LOC: M ED 10:52
DX: T43.621A Poisoning by amphetamines, accidental (unintentional), initial encounter (principal); T40.5X4A Poisoning by cocaine, undetermined, initial encounter

== ENCOUNTER → 2022-07-25 | Outpatient (CLI) | payer OTHER | LOC: M RAD 14:41 | PROVIDERS: ATTEND Physician Assistant | DX: M25.512 Pain in left shoulder (principal) ==

== ENCOUNTER 2022-08-31 18:38 | Emergency (ER) | payer OTHER ==
[~2022-08-31] VITALS: Ht 167.6 cm; Wt 122.7 kg
[~2022-08-31 18:38] MED LIST changes: -HYDR200T3; +HYDR200T46
[2022-08-31 20:39] VITALS: BP 155/77; TEMP 97.6; O2SAT 100
[2022-08-31] MEDS ORDERED: ALB2.5NEB NEB (20:46)
== END 2022-08-31 20:46 | disposition home or self-care (01) ==
LOC: M ED 18:38
DX: T17.920A Food in respiratory tract, part unspecified causing asphyxiation, initial encounter (principal); I10 Essential (primary) hypertension; J45.909 Unspecified asthma, uncomplicated; Z85.41 Personal history of malignant neoplasm of cervix uteri; F25.9 Schizoaffective disorder, unspecified; Z88.8 Allergy status to other drugs, medicaments and biological substances; Z91.013 Allergy to seafood; Z79.51 Long term (current) use of inhaled steroids; Z79.899 Other long term (current) drug therapy

== ENCOUNTER → 2022-12-25 | Outpatient (CLI) | payer MEDICAID, OTHER ==
[~2022-12-25] MED LIST changes: +ALB2.5NEB NEB; -PREG75CA2 PO; +PREG75CA3 PO
== END ==
LOC: M RAD 12:19
PROVIDERS: ATTEND Physician Assistant
DX: M25.532 Pain in left wrist (principal)

== ENCOUNTER → 2023-02-06 | Outpatient (CLI) | payer OTHER ==
[~2023-02-06] MED LIST changes: +E-Z-GAS II EFFERVESCENT PACKET (SODIUM BICARB./CITRIC ACID/SIMETHICONE) As Ordered ONE; +E-Z-HD 98% w/w 340GM SUSP BTL As Ordered ONE; +E-Z-PAQUE 96% w/w SUSP 176GM BTL As Ordered ONE
== END ==
LOC: M RAD 07:51
PROVIDERS: ATTEND Surgery
DX: R13.10 Dysphagia, unspecified (principal)

== ENCOUNTER → 2023-02-17 | Outpatient (CLI) | payer OTHER ==
[~2023-02-17] MED LIST changes: -E-Z-GAS II EFFERVESCENT PACKET (SODIUM BICARB./CITRIC ACID/SIMETHICONE) As Ordered ONE; -E-Z-HD 98% w/w 340GM SUSP BTL As Ordered ONE; -E-Z-PAQUE 96% w/w SUSP 176GM BTL As Ordered ONE
== END ==
LOC: M SLEEP HO 11:28
PROVIDERS: ATTEND Internal Medicine Pulmonary Disease
DX: G47.33 Obstructive sleep apnea (adult) (pediatric) (principal)

== ENCOUNTER 2023-02-23 16:42 | Emergency (ER) | payer OTHER ==
[2023-02-23] MEDS ORDERED: dexAMETHasone 20MG/5ML VIAL IV ONE (17:15)
[2023-02-23] MEDS ORDERED: IBUPROFEN 600MG TAB PO ONE (17:15)
[2023-02-23] MEDS ORDERED: NS 500 ML IV ONE (17:15)
[2023-02-23] MEDS ORDERED: IPRATROPIUM 0.5MG/ALBUTEROL 2.5MG INH SOL UD 3ML (DUONEB) NEB ONE ×2 (17:15→17:25)
[2023-02-23] MEDS ORDERED: ACETAMINOPHEN 500 MG TAB PO ONE (17:15)
[2023-02-23] MEDS ORDERED: ONDANSETRON 4MG 2ML VIAL IV ONE (17:30)
[2023-02-23 17:57] LABS: RSV AMPLIFICATION NEGATIVE (NEGATIVE)
[2023-02-23 18:01] LABS: BASO % 0.6 % (0.0-1.0); EOS # 0.1 10^3/uL (0.0-0.5); EOS % 1.2 % (0.0-3.0); HEMATOCRIT 39.9 % (36.0-47.0); HEMOGLOBIN 13.5 g/dl (12.0-15.5); LYMPH # 0.9 10^3/uL (1.5-5.0); LYMPH % 17.5 % (24.0-44.0); MEAN CORPUSCULAR HEMOGLOBIN 29.9 pg (27.0-33.0); MEAN CORPUSCULAR HGB CONC 33.8 g/dl (32.0-36.5); MEAN CORPUSCULAR VOLUME 88.3 fl (80.0-96.0); MONO # 0.6 10^3/uL (0.0-0.8); MONO % 11.1 % (2.0-8.0); NEUTROPHILS # 3.5 10^3/uL (1.5-8.5); NEUTROPHILS % 68.8 % (36.0-66.0); PLATELET COUNT, AUTOMATED 173 10^3/uL (150-450); RED BLOOD COUNT 4.52 10^6/uL (4.00-5.40)
[2023-02-23 18:25] LABS: BLOOD UREA NITROGEN 12 MG/DL (9-23); CALCIUM LEVEL 8.2 MG/DL (8.5-10.1); CARBON DIOXIDE LEVEL 31 MMOL/L (20-31); CHLORIDE LEVEL 101 MMOL/L (98-107); CREATININE FOR GFR 0.75 MG/DL (0.55-1.30); GLOMERULAR FILTRATION RATE > 60.0 (>58); GLUCOSE, FASTING 103 MG/DL (60-100); POTASSIUM SERUM 4.4 MMOL/L (3.5-5.1); SODIUM LEVEL 135 MMOL/L (136-145)
[2023-02-23] MEDS ORDERED: OSELTAMIVIR PHOSPHATE 75 MG CAP (TAMIFLU) PO ONE ×3 (19:40→19:50)
[2023-02-23] MEDS ORDERED: EASY-106 XX (19:45)
[2023-02-23] MEDS ORDERED: PRED20TA PO (19:45)
[2023-02-23] MEDS ORDERED: IPRA0.00 NEB (19:45)
[2023-02-23] MEDS ORDERED: OSEL75CA PO (19:45)
[2023-02-23 20:11] VITALS: BP 150/75; TEMP 98.1; O2SAT 96
== END 2023-02-23 20:17 | disposition home or self-care (01) ==
LOC: M ED 16:42
DX: J09.X9 Influenza due to identified novel influenza A virus with other manifestations (principal); J45.909 Unspecified asthma, uncomplicated; G47.33 Obstructive sleep apnea (adult) (pediatric); E66.9 Obesity, unspecified; F25.9 Schizoaffective disorder, unspecified; F17.200 Nicotine dependence, unspecified, uncomplicated; F50.00 Anorexia nervosa, unspecified; Z11.52 Encounter for screening for COVID-19
CPT/HCPCS: 71045; 80048; 83880; 85025; 87631; 94640; 96374; 96375; 99284; J1100; J2405

== ENCOUNTER → 2023-03-25 | Outpatient (CLI) | payer OTHER ==
[~2023-03-25] MED LIST changes: +EASY-106 XX; +IPRA0.00 NEB; +OSEL75CA PO
== END ==
LOC: M CARPUL 11:44
PROVIDERS: ATTEND Internal Medicine Pulmonary Disease
DX: R06.02 Shortness of breath (principal)

== ENCOUNTER → 2023-04-01 | Outpatient (CLI) | payer OTHER | LOC: M RAD 11:33 | PROVIDERS: ATTEND Family Medicine | DX: S89.91XA Unspecified injury of right lower leg, initial encounter (principal) ==

== ENCOUNTER → 2023-04-18 | Outpatient (CLI) | payer OTHER | LOC: M EKG 11:30 | PROVIDERS: ATTEND Nurse Practitioner Psychiatric/Mental Health | DX: F31.81 Bipolar II disorder (principal) ==

== ENCOUNTER → 2023-05-20 | Outpatient (REF) | payer OTHER ==
[~2023-05-20] MED LIST changes: -KLON1TAB; +KLON1TAB13
== END ==
LOC: M LAB REF 11:21
PROVIDERS: ATTEND Physician Assistant
DX: R30.0 Dysuria (principal)

== ENCOUNTER 2023-06-13 19:52 | Emergency (ER) | payer OTHER ==
[~2023-06-13] VITALS: Ht 167.6 cm; Wt 135.5 kg
[2023-06-13 19:53] VITALS: BP 171/98; TEMP 97.9; O2SAT 97
[2023-06-13 20:47] LABS: BASO % 0.5 % (0.0-1.0); HEMATOCRIT 44.5 % (36.0-47.0); HEMOGLOBIN 14.6 g/dl (12.0-15.5); LYMPH % 24.3 % (24.0-44.0); MEAN CORPUSCULAR HEMOGLOBIN 27.9 pg (27.0-33.0); MEAN CORPUSCULAR HGB CONC 32.8 g/dl (32.0-36.5); MEAN CORPUSCULAR VOLUME 84.9 fl (80.0-96.0); MONO # 0.7 10^3/uL (0.0-0.8); MONO % 8.6 % (2.0-8.0); NEUTROPHILS # 5.2 10^3/uL (1.5-8.5); NEUTROPHILS % 65.4 % (36.0-66.0); PLATELET COUNT, AUTOMATED 219 10^3/uL (150-450); RED BLOOD COUNT 5.24 10^6/uL (4.00-5.40)
[2023-06-13 21:15] LABS: LIPASE 27 U/L (12-53)
[2023-06-13 21:18] LABS: ALBUMIN 3.1 G/DL (3.2-5.2); ALKALINE PHOSPHATASE 93 U/L (46-116); ALT/SGPT 50 U/L (7.0-40); AST/SGOT 42 U/L (<34); BILIRUBIN,DIRECT 0.1 MG/DL (<0.4); BILIRUBIN,TOTAL 0.3 MG/DL (0.3-1.2); BLOOD UREA NITROGEN 12 MG/DL (9-23); CALCIUM LEVEL 8.7 MG/DL (8.5-10.1); CARBON DIOXIDE LEVEL 30 MMOL/L (20-31); CHLORIDE LEVEL 102 MMOL/L (98-107); CREATININE FOR GFR 0.85 MG/DL (0.55-1.30); GLOMERULAR FILTRATION RATE > 60.0 (>58); GLUCOSE, FASTING 133 MG/DL (60-100); SODIUM LEVEL 139 MMOL/L (136-145); TOTAL PROTEIN 7.2 G/DL (5.7-8.2)
== END 2023-06-13 22:27 | disposition left against medical advice (07) ==
LOC: M ED 19:52
DX: Z53.21 Procedure and treatment not carried out due to patient leaving prior to being seen by health care provider (principal)

== ENCOUNTER → 2023-08-01 | Outpatient (CLI) | payer OTHER ==
[~2023-08-01] MED LIST changes: +FLUO-290; -FLUO10CA18
== END ==
LOC: M PLAIMG 07-17 07:55
PROVIDERS: ATTEND Physician Assistant
DX: R56.9 Unspecified convulsions (principal)

== ENCOUNTER → 2023-08-01 | Outpatient (CLI) | payer OTHER | LOC: M PLAIMG 11:06 | PROVIDERS: ATTEND Physician Assistant | DX: M54.50 Low back pain, unspecified (principal) ==

== ENCOUNTER → 2023-08-08 | Outpatient (CLI) | payer OTHER ==
[~2023-08-08] MED LIST changes: +FLUO-365 PO; -FLUO20CA22 PO
== END ==
LOC: M WUC 11:28
PROVIDERS: ATTEND Physician Assistant
DX: S80.01XA Contusion of right knee, initial encounter (principal); V18.4XXA Pedal cycle driver injured in noncollision transport accident in traffic accident, initial encounter; Y93.9 Activity, unspecified; Y92.9 Unspecified place or not applicable

== ENCOUNTER → 2023-08-29 | Outpatient (CLI) | payer OTHER | LOC: M PLAIMG 07:15 | PROVIDERS: ATTEND Orthopaedic Surgery | DX: M51.26 Other intervertebral disc displacement, lumbar region (principal); M54.16 Radiculopathy, lumbar region ==

== ENCOUNTER → 2023-09-15 | Outpatient (CLI) | payer OTHER | LOC: M WUC 14:57 | PROVIDERS: ATTEND Registered Nurse | DX: J20.9 Acute bronchitis, unspecified (principal) ==

== ENCOUNTER → 2023-09-24 | Outpatient (CLI) | payer OTHER ==
[2023-09-24 14:12] LABS: HCG, SERUM QUALITATIVE NEGATIVE (NEGATIVE); LIPASE 35 U/L (12-53)
[2023-09-24 14:15] LABS: ALBUMIN 3.1 G/DL (3.2-5.2); ALKALINE PHOSPHATASE 94 U/L (46-116); ALT/SGPT 39 U/L (7.0-40); AST/SGOT 25 U/L (<34); BILIRUBIN,TOTAL 0.4 MG/DL (0.3-1.2); BLOOD UREA NITROGEN 10 MG/DL (9-23); CARBON DIOXIDE LEVEL 32 MMOL/L (20-31); CHLORIDE LEVEL 103 MMOL/L (98-107); CREATININE FOR GFR 0.94 MG/DL (0.55-1.30); GLOMERULAR FILTRATION RATE > 60.0 (>58); GLUCOSE, FASTING 99 MG/DL (60-100); POTASSIUM SERUM 3.6 MMOL/L (3.5-5.1); SODIUM LEVEL 140 MMOL/L (136-145); TOTAL PROTEIN 6.4 G/DL (5.7-8.2)
[2023-09-24 14:19] LABS: BASO # 0.1 10^3/uL (0.0-0.2); EOS # 0.3 10^3/uL (0.0-0.5); EOS % 3.8 % (0.0-3.0); HEMATOCRIT 41.5 % (36.0-47.0); HEMOGLOBIN 13.2 g/dl (12.0-15.5); LYMPH # 2.7 10^3/uL (1.5-5.0); LYMPH % 36.7 % (24.0-44.0); MEAN CORPUSCULAR HGB CONC 31.8 g/dl (32.0-36.5); MEAN CORPUSCULAR VOLUME 88.1 fl (80.0-96.0); MONO # 0.5 10^3/uL (0.0-0.8); MONO % 6.9 % (2.0-8.0); NEUTROPHILS # 3.8 10^3/uL (1.5-8.5); NEUTROPHILS % 51.2 % (36.0-66.0); PLATELET COUNT, AUTOMATED 205 10^3/uL (150-450); RED BLOOD COUNT 4.71 10^6/uL (4.00-5.40); WHITE BLOOD COUNT 7.4 10^3/uL (4.0-10.0)
== END ==
LOC: M RAD 10:11
PROVIDERS: ATTEND Physician Assistant
DX: R10.9 Unspecified abdominal pain (principal)

== ENCOUNTER → 2023-10-03 | Outpatient (REF) | payer OTHER ==
[2023-10-03 17:56] LABS: CHOLESTEROL LEVEL 173 MG/DL (<200); CHOLESTEROL RISK RATIO 6.11 (<5); HDL CHOLESTEROL 28.3 MG/DL (>40); NON-HDL-C 144.7 MG/DL; TRIGLYCERIDES LEVEL 414 MG/DL (<150)
[2023-10-03 18:04] LABS: HEMOGLOBIN A1c 5.7 % (4.0-6.0)
== END ==
LOC: M LAB REF 16:46
PROVIDERS: ATTEND Physician Assistant
DX: E55.9 Vitamin D deficiency, unspecified (principal); E66.9 Obesity, unspecified; Z11.9 Encounter for screening for infectious and parasitic diseases, unspecified

== ENCOUNTER → 2023-10-22 | Outpatient (REF) | payer OTHER ==
[2023-10-22 17:45] LABS: BLOOD UREA NITROGEN 10 MG/DL (9-23); CARBON DIOXIDE LEVEL 27 MMOL/L (20-31); CHLORIDE LEVEL 103 MMOL/L (98-107); CREATININE FOR GFR 0.79 MG/DL (0.55-1.30); GLOMERULAR FILTRATION RATE > 60.0 (>58); GLUCOSE, FASTING 110 MG/DL (60-100); POTASSIUM SERUM 4.4 MMOL/L (3.5-5.1); SODIUM LEVEL 137 MMOL/L (136-145)
== END ==
LOC: M LAB REF 16:36
PROVIDERS: ATTEND Physician Assistant
DX: R60.0 Localized edema (principal)

== ENCOUNTER → 2023-11-19 | Outpatient (REF) | payer OTHER ==
[2023-11-19 14:32] LABS: ALBUMIN 3.1 G/DL (3.2-5.2); ALKALINE PHOSPHATASE 108 U/L (46-116); ALT/SGPT 32 U/L (7.0-40); AST/SGOT 26 U/L (<34); BILIRUBIN,TOTAL 0.2 MG/DL (0.3-1.2); BLOOD UREA NITROGEN 14 MG/DL (9-23); CALCIUM LEVEL 9.1 MG/DL (8.5-10.1); CARBON DIOXIDE LEVEL 30 MMOL/L (20-31); CHLORIDE LEVEL 109 MMOL/L (98-107); CREATININE FOR GFR 0.78 MG/DL (0.55-1.30); GLOMERULAR FILTRATION RATE > 60.0 (>58); GLUCOSE, FASTING 109 MG/DL (60-100); POTASSIUM SERUM 4.3 MMOL/L (3.5-5.1); SODIUM LEVEL 139 MMOL/L (136-145); TOTAL PROTEIN 6.8 G/DL (5.7-8.2)
== END ==
LOC: M LAB REF 13:09
PROVIDERS: ATTEND Physician Assistant
DX: R60.0 Localized edema (principal)

== ENCOUNTER → 2023-12-10 | Outpatient (REF) | payer OTHER ==
[2023-12-10 13:32] LABS: BLOOD UREA NITROGEN 12 MG/DL (9-23); CALCIUM LEVEL 9.5 MG/DL (8.5-10.1); CARBON DIOXIDE LEVEL 35 MMOL/L (20-31); CHLORIDE LEVEL 103 MMOL/L (98-107); CREATININE FOR GFR 0.83 MG/DL (0.55-1.30); GLOMERULAR FILTRATION RATE > 60.0 (>58); GLUCOSE, FASTING 150 MG/DL (60-100); POTASSIUM SERUM 4.5 MMOL/L (3.5-5.1); SODIUM LEVEL 139 MMOL/L (136-145)
== END ==
LOC: M LAB REF 12:17
PROVIDERS: ATTEND Physician Assistant
DX: R60.0 Localized edema (principal)

== ENCOUNTER → 2023-12-10 | Outpatient (CLI) | payer OTHER | LOC: M RAD 14:46 | PROVIDERS: ATTEND Physician Assistant | DX: R60.0 Localized edema (principal) ==

== ENCOUNTER → 2023-12-24 | Outpatient (CLI) | payer OTHER | LOC: M CARPUL 09:10 | PROVIDERS: ATTEND Physician Assistant | DX: R60.0 Localized edema (principal) ==

== ENCOUNTER → 2024-02-13 | Outpatient (CLI) | payer OTHER ==
[~2024-02-13] MED LIST changes: -LIDO1CRE2 TOP; +LIDO4CRE12 TOP
== END ==
LOC: M RAD 09:28
PROVIDERS: ATTEND Physician Assistant
DX: M79.674 Pain in right toe(s) (principal)

== ENCOUNTER → 2024-02-13 | Outpatient (CLI) | payer OTHER, MEDICAID | LOC: M PAIN 08:00 | PROVIDERS: ATTEND Nurse Practitioner Family | DX: M79.18 Myalgia, other site (principal); E55.9 Vitamin D deficiency, unspecified; G47.33 Obstructive sleep apnea (adult) (pediatric); J45.909 Unspecified asthma, uncomplicated; G43.909 Migraine, unspecified, not intractable, without status migrainosus; K21.9 Gastro-esophageal reflux disease without esophagitis; Z98.2 Presence of cerebrospinal fluid drainage device; F17.200 Nicotine dependence, unspecified, uncomplicated; Z79.899 Other long term (current) drug therapy; Z88.4 Allergy status to anesthetic agent; Z88.5 Allergy status to narcotic agent; Z88.8 Allergy status to other drugs, medicaments and biological substances; Z91.013 Allergy to seafood ==

== ENCOUNTER → 2024-02-16 | Outpatient (CLI) | payer OTHER | LOC: M SOG 07:56 | PROVIDERS: ATTEND Orthopaedic Surgery | DX: M25.561 Pain in right knee (principal); M25.562 Pain in left knee ==

== ENCOUNTER → 2024-03-08 | Outpatient (CLI) | payer OTHER | LOC: M SOG 07:53 | PROVIDERS: ATTEND Orthopaedic Surgery | DX: M25.561 Pain in right knee (principal); M25.562 Pain in left knee ==

== ENCOUNTER 2024-03-27 18:28 | Emergency (ER) | payer OTHER ==
[~2024-03-27] VITALS: Ht 165.1 cm; Wt 145.3 kg
[2024-03-27] MEDS ORDERED: DICL20GE TP (20:55)
[2024-03-27] MEDS ORDERED: MEDR4PAK PO (20:55)
[2024-03-27 21:11] VITALS: BP 119/54; TEMP 97.9; O2SAT 97
== END 2024-03-27 21:16 | disposition home or self-care (01) ==
LOC: M ED 18:28
DX: M25.561 Pain in right knee (principal); F17.210 Nicotine dependence, cigarettes, uncomplicated; Z88.8 Allergy status to other drugs, medicaments and biological substances; Z91.013 Allergy to seafood; Z79.51 Long term (current) use of inhaled steroids; Z79.52 Long term (current) use of systemic steroids; Z79.899 Other long term (current) drug therapy

== ENCOUNTER → 2024-04-07 | Outpatient (CLI) | payer MEDICAID ==
[~2024-04-07] MED LIST changes: +DICL20GE TP; +MEDR4PAK PO
== END ==
LOC: M RAD 09:53
PROVIDERS: ATTEND Physician Assistant
DX: J44.1 Chronic obstructive pulmonary disease with (acute) exacerbation (principal)

== ENCOUNTER → 2024-04-09 | Outpatient (CLI) | payer MEDICAID ==
[~2024-04-09] MED LIST changes: +NORCO, ANEXSIA 5/325MG TABLET (HYDROcodone/ACETAMINOPHEN) As Ordered ONE; +TRIAMCINOLONE ACETONIDE SUSP 40MG/ML 1ML VIAL As Ordered ONE; +diazePAM 2 MG TAB As Ordered ONE
== END ==
LOC: M PAIN 10:00
PROVIDERS: ATTEND Anesthesiology
DX: M79.18 Myalgia, other site (principal); G89.29 Other chronic pain; F17.200 Nicotine dependence, unspecified, uncomplicated; K21.9 Gastro-esophageal reflux disease without esophagitis; M54.50 Low back pain, unspecified; J45.909 Unspecified asthma, uncomplicated; E55.9 Vitamin D deficiency, unspecified; Z79.899 Other long term (current) drug therapy; Z88.4 Allergy status to anesthetic agent; Z88.5 Allergy status to narcotic agent; Z88.8 Allergy status to other drugs, medicaments and biological substances; Z91.013 Allergy to seafood
CPT/HCPCS: 20552; J0665; J3301

== ENCOUNTER → 2024-04-13 | Outpatient (CLI) | payer MEDICAID ==
[~2024-04-13] MED LIST changes: -NORCO, ANEXSIA 5/325MG TABLET (HYDROcodone/ACETAMINOPHEN) As Ordered ONE; -TRIAMCINOLONE ACETONIDE SUSP 40MG/ML 1ML VIAL As Ordered ONE; -diazePAM 2 MG TAB As Ordered ONE
== END ==
LOC: M PAIN 09:00
PROVIDERS: ATTEND Anesthesiology
DX: M79.18 Myalgia, other site (principal); M54.50 Low back pain, unspecified; F17.210 Nicotine dependence, cigarettes, uncomplicated; Z79.899 Other long term (current) drug therapy; Z88.4 Allergy status to anesthetic agent; Z88.5 Allergy status to narcotic agent; Z88.8 Allergy status to other drugs, medicaments and biological substances; Z91.030 Bee allergy status

== ENCOUNTER → 2024-04-27 | Outpatient (CLI) | payer MEDICAID | LOC: M PAIN 08:30 | PROVIDERS: ATTEND Anesthesiology | DX: M79.10 Myalgia, unspecified site (principal); M54.50 Low back pain, unspecified; F17.200 Nicotine dependence, unspecified, uncomplicated; Z79.899 Other long term (current) drug therapy; Z88.4 Allergy status to anesthetic agent; Z88.5 Allergy status to narcotic agent; Z88.8 Allergy status to other drugs, medicaments and biological substances; Z91.013 Allergy to seafood; E66.01 Morbid (severe) obesity due to excess calories; Z68.43 Body mass index [BMI] 50.0-59.9, adult ==

== ENCOUNTER → 2024-06-15 | Outpatient (REF) | payer OTHER ==
[2024-06-15 15:21] LABS: ALBUMIN 3.2 G/DL (3.2-5.2); BILIRUBIN,TOTAL 0.2 MG/DL (0.3-1.2); CALCIUM LEVEL 9.5 MG/DL (8.5-10.1); CREATININE FOR GFR 0.86 MG/DL (0.55-1.30); GLOMERULAR FILTRATION RATE 85.9 (>58); POTASSIUM SERUM 4.9 MMOL/L (3.5-5.1); TOTAL PROTEIN 7.3 G/DL (5.7-8.2)
[2024-06-15 15:22] LABS: FREE T4 1.06 NG/DL (0.89-1.76); THYROID STIMULATING HORMONE 2.06 uIU/ML (0.55-4.78)
== END ==
LOC: M LAB REF 14:30
PROVIDERS: ATTEND Physician Assistant
DX: E03.9 Hypothyroidism, unspecified (principal); R60.0 Localized edema

== ENCOUNTER → 2024-06-30 | Outpatient (REF) | payer OTHER ==
[~2024-06-30] MED LIST changes: +PREG-35 PO; -PREG100CA PO
[2024-06-30 18:27] LABS: ALBUMIN 3.3 G/DL (3.2-5.2); ALKALINE PHOSPHATASE 131 U/L (35-104); ALT/SGPT 41 U/L (7.0-40); AST/SGOT 24 U/L (<34); BILIRUBIN,DIRECT < 0.1 MG/DL (<0.4); BILIRUBIN,TOTAL < 0.2 MG/DL (0.3-1.2); BLOOD UREA NITROGEN 24 MG/DL (9-23); CALCIUM LEVEL 8.7 MG/DL (8.5-10.1); CARBON DIOXIDE LEVEL 32 MMOL/L (20-31); CHLORIDE LEVEL 101 MMOL/L (98-107); CREATININE FOR GFR 0.89 MG/DL (0.55-1.30); FERRITIN 9.7 NG/ML (7.3-270.7); GLOMERULAR FILTRATION RATE 82.5 (>58); GLUCOSE, FASTING 155 MG/DL (60-100); POTASSIUM SERUM 4.3 MMOL/L (3.5-5.1); SODIUM LEVEL 139 MMOL/L (136-145); TOTAL PROTEIN 7.4 G/DL (5.7-8.2)
[2024-06-30 18:46] LABS: HEPATITIS B SURFACE ANTIGEN NEGATIVE (NEGATIVE)
[2024-06-30 19:06] LABS: HEPATITIS B CORE ANTIBODY IGM NEGATIVE (NEGATIVE)
[2024-06-30 19:09] LABS: HEPATITIS C VIRUS ABY INDEX 2.38 INDEX (<0.8)
== END ==
LOC: M LAB REF 17:50
PROVIDERS: ATTEND Physician Assistant
DX: R74.8 Abnormal levels of other serum enzymes (principal)

== ENCOUNTER 2024-09-29 01:12 | Emergency (ER) | payer OTHER ==
[~2024-09-29] VITALS: Ht 167.6 cm; Wt 154.6 kg
[~2024-09-29 01:12] MED LIST changes: +ATOM25CA7 PO; +CLON0.5T2 PO; +DULO1CAP6 PO; +FURO40TA2 PO; +IPRA0.00 INH; +LIDO1ADH93 TOP; -LIDO5DIS41 TOP; +MIRT-10 PO; +OMEP-173 PO; +ZIPS1CAP7 PO; -ZIPS25CA3 PO; +med rec comment
[2024-09-29 01:15] VITALS: TEMP 97.2
[2024-09-29 04:45] VITALS: BP 136/74; O2SAT 98
== END 2024-09-29 05:05 | disposition left against medical advice (07) ==
LOC: M ED 01:12
DX: Z53.21 Procedure and treatment not carried out due to patient leaving prior to being seen by health care provider (principal)

== ENCOUNTER → 2024-11-09 | Outpatient (REF) | payer MEDICAID, OTHER ==
[~2024-11-09] MED LIST changes: -IBUP-1022 PO; +IBUP600T42 PO
[2024-11-09 15:10] LABS: Trichomonas vaginalis (AMP) NOT DETECTED (NEGATIVE)
[2024-11-09 15:34] LABS: GC DNA AMPLIFICATION NEGATIVE (NEGATIVE)
[2024-11-11 13:47] LABS: HPV APTIMA Not Detected (Not Detected)
== END ==
LOC: M SFHCWAGY 13:09
PROVIDERS: ATTEND Nurse Practitioner Family
DX: Z12.4 Encounter for screening for malignant neoplasm of cervix (principal); R87.5 Abnormal microbiological findings in specimens from female genital organs

== ENCOUNTER → 2024-11-10 | Outpatient (REF) | payer MEDICAID, OTHER ==
[2024-11-10 14:55] LABS: APPEARANCE, URINE HAZY (CLEAR); BACTERIA, URINE AUTO NEGATIVE (NEGATIVE); BILIRUBIN, URINE AUTO NEGATIVE (NEGATIVE); BLOOD, URINE BLOOD NEGATIVE (NEGATIVE); GLUCOSE, URINE (UA) AUTO NEGATIVE (NEGATIVE); KETONE, URINE AUTO NEGATIVE (NEGATIVE); LEUKOCYTE ESTERASE, URINE AUTO NEGATIVE (NEGATIVE); MUCUS, URINE SMALL (NEGATIVE); NITRITE, URINE AUTO NEGATIVE (NEGATIVE); PROTEIN, URINE AUTO NEGATIVE (NEGATIVE); RBC, URINE AUTO 0 /HPF (0-3); SPECIFIC GRAVITY URINE AUTO 1.026 (1.002-1.035); SQUAMOUS EPITHELIAL CELL UR AU 16 /HPF (0-6); UROBILINOGEN, URINE AUTO 2.0 mg/dL (0.0-2.0); WBC, URINE AUTO 1 /HPF (0-3)
[2024-11-10 15:26] LABS: CREATININE, URINE 237.3 MG/DL; MALB URINE SIEMENS 4.0 MG/L; MAU/CREAT RATIO 1.6 MCG/MG (0.0-30.0)
== END ==
LOC: M LAB REF 14:23
PROVIDERS: ATTEND Physician Assistant
DX: E11.9 Type 2 diabetes mellitus without complications (principal)

== ENCOUNTER → 2024-11-10 | Outpatient (REF) | payer OTHER, MEDICAID ==
[2024-11-10 18:10] LABS: ALT/SGPT 50.0 U/L (7.0-40); AST/SGOT 31.0 U/L (<34); CALCIUM LEVEL 9.6 MG/DL (8.5-10.1); CARBON DIOXIDE LEVEL 30.0 MMOL/L (20-31); CHLORIDE LEVEL 105.0 MMOL/L (98-107); CHOLESTEROL LEVEL 172.0 MG/DL (<200); CHOLESTEROL RISK RATIO 4.88 (<5); CREATININE FOR GFR 0.87 MG/DL (0.55-1.30); GLOMERULAR FILTRATION RATE 84.2 (>58); LDL CHOLESTEROL 87.8 MG/DL (<100); NON-HDL-C 136.8 MG/DL; POTASSIUM SERUM 4.5 MMOL/L (3.5-5.1); SODIUM LEVEL 143.0 MMOL/L (136-145); TRIGLYCERIDES LEVEL 245.0 MG/DL (<150)
[2024-11-10 18:15] LABS: TOTAL 25(OH) VITAMIN D 30.7 NG/ML (20.0-100.0)
[2024-11-10 18:26] LABS: ESTIMATED AVERAGE GLUCOSE 160.0 MG/DL (60-110)
== END ==
LOC: M LAB REF 16:29
PROVIDERS: ATTEND Physician Assistant
DX: E03.9 Hypothyroidism, unspecified (principal); E11.9 Type 2 diabetes mellitus without complications; E55.9 Vitamin D deficiency, unspecified

== ENCOUNTER → 2024-11-22 | Outpatient (CLI) | payer OTHER, MEDICAID ==
[~2024-11-22] MED LIST changes: +KEPP1TAB PO
== END ==
LOC: M WHC 09:42
PROVIDERS: ATTEND Nurse Practitioner Family
DX: Z12.31 Encounter for screening mammogram for malignant neoplasm of breast (principal)

== ENCOUNTER → 2024-11-23 | Outpatient (CLI) | payer OTHER | LOC: M RAD 09:06 | PROVIDERS: ATTEND Registered Nurse | DX: R05.9 Cough, unspecified (principal) ==

== ENCOUNTER → 2024-11-26 | Outpatient (CLI) | payer OTHER | LOC: M RAD 10:27 | PROVIDERS: ATTEND Physician Assistant | DX: R74.8 Abnormal levels of other serum enzymes (principal) ==

== ENCOUNTER → 2024-11-30 | Outpatient (CLI) | payer OTHER | LOC: M WHC 09:48 | PROVIDERS: ATTEND Nurse Practitioner Family | DX: Z12.31 Encounter for screening mammogram for malignant neoplasm of breast (principal); R92.313 Mammographic fatty tissue density, bilateral breasts ==

== ENCOUNTER → 2024-12-21 | Outpatient (CLI) | payer OTHER | LOC: M WHC 09:45 | PROVIDERS: ATTEND Nurse Practitioner Family | DX: N95.0 Postmenopausal bleeding (principal) ==

== ENCOUNTER → 2025-01-13 | Outpatient (REF) | payer OTHER, MEDICAID | LOC: M SFHCWAGY 13:23 | PROVIDERS: ATTEND Nurse Practitioner Family | DX: N95.0 Postmenopausal bleeding (principal) ==